=== PATIENT | female | born 1955 | race Caucasian/White ===

== ENCOUNTER 2016-07-21 07:54 | Emergency (ER) | payer MEDICARE ==
[~2016-07-21] VITALS: Ht 154.9 cm; Wt 69.7 kg
[~2016-07-21 07:54] MED LIST: AMLO10TA2 PO; ASP81CT; ASPI-983 PO; ATOR20TA49 PO; ATOR20TA66 PO; ATOR40TA70 PO; CALC-870 PO; CEFD300C3 PO; CEFU500T PO; CEPH500T PO; CHOL10007 PO; CLOP75TA28 PO; CLPD75T; CLPD75T PO; FENO145T; FURO-124 PO; FURO40TA4 PO; HYDR-3816 PO; HYDR-757 PO; IBUP-30 PO; INSASP10V; INSU100C4; INSU100I29 SQ; INSU100V16 SQ; INSU100V6 SQ; INSU100V8; ISOS30TA3 PO; LEVO750T9 PO; LISI40TA PO; MAG355OR17 PO; MELO7.5T; METF1000 PO; METO-274 PO; MTP100TCR; NF-ESOM40C; NF-ESOM40C PO; NITR12SP3; OXYC-201 PO; PENI500T PO; QNPR20T; QUIN20TA27 PO; RAMI1.252; RMP5C; SENN-109 PO; SULF1TAB35 PO; TRAM50TA2 PO
[2016-07-21 08:33] LABS: BASOPHILS % (AUTO) 0 % (0-10); EOSINOPHILS # (AUTO) 0.1 10^3/uL (0.0-0.3); EOSINOPHILS % (AUTO) 2 % (0-10); LYMPHOCYTES % (AUTO) 29 % (12-44); MEAN CORPUSCULAR HEMOGLOBIN 30 PG (25-34); MEAN CORPUSCULAR HGB CONC 35 G/DL (32-36); MEAN CORPUSCULAR VOLUME 85 FL (80-99); MEAN PLATELET VOLUME 11.8 FL (7.4-10.4); MONOCYTES # (AUTO) 0.3 X 10^3 (0.0-1.0); MONOCYTES % (AUTO) 4 % (0-12); NEUTROPHILS # (AUTO) 4.4 X 10^3 (1.8-7.8); NEUTROPHILS % (AUTO) 65 % (42-75); PLATELET COUNT 152 10^3/uL (130-400); RED BLOOD COUNT 4.83 10^6/uL (4.35-5.85); RED CELL DISTRIBUTION WIDTH 12.7 % (10.0-14.5); WHITE BLOOD COUNT 6.8 10^3/uL (4.3-11.0)
[2016-07-21 08:51] LABS: ALANINE AMINOTRANSFERASE 15 U/L (0-55); ALBUMIN 3.9 G/DL (3.2-4.5); AMYLASE 34 U/L (25-125); ANION GAP 11 MMOL/L (5-14); ASPARTATE AMINO TRANSFERASE 12 U/L (5-34); BILIRUBIN,TOTAL 0.4 MG/DL (0.1-1.0); BLOOD UREA NITROGEN 13 MG/DL (7-18); BUN/CREATININE RATIO 16; CALCIUM 9.2 MG/DL (8.5-10.1); CARBON DIOXIDE 22 MMOL/L (21-32); CHLORIDE 104 MMOL/L (98-107); CREATININE SERUM 0.82 MG/DL (0.60-1.30); GFR ESTIMATED > 60; GLUCOSE 385 MG/DL (70-105); LIPASE 30 U/L (8-78); POTASSIUM 3.9 MMOL/L (3.6-5.0); SODIUM 137 MMOL/L (135-145)
--- NOTE | 2016-07-21 09:22 | Diagnostic Imaging Report ---
INDICATION: Stepped on a toy at 4 a.m. this morning, complaining of left knee pain. FINDINGS: 3 views of the left knee demonstrates no fracture, dislocation or joint effusion. Osteophytes are seen in all 3 compartments greatest in the lateral compartment. IMPRESSION: There are no acute findings. Dictated by: Dictated on workstation # [id number]
--- NOTE | 2016-07-21 09:24 | Diagnostic Imaging Report ---
INDICATION: Stepped on a toy at 4 AM, fell, complaining of left rib pain. FINDINGS: Frontal view of the chest demonstrate the lungs to be clear. The heart, mediastinum and pulmonary vascularity are normal. No pleural effusion or pneumothorax is present. 3 additional views of the left ribs demonstrates normal ossification. No fractures are present. IMPRESSION: Negative left ribs. Coronary artery stents or vascular calcifications are present. Dictated by: Dictated on workstation # [id number]
[2016-07-21] MEDS ORDERED: HYDROcodone/APAP 5 MG/325 MG (LORTAB) TAB PO STA (09:39)
[2016-07-21] MEDS ORDERED: ACETAMINOPHEN 500 MG TAB (TYLENOL) PO STA (09:39)
--- NOTE | 2016-07-21 09:48 | ED Fall/Injury ---
General Chief Complaint: Trauma-Non Activation Stated Complaint: FALL; L SIDE RIB PAIN Nursing Triage Note: PT STATES SHE STEPPED ON A TOY ABOUT 0400 THIS A.M. AND FELL, CC OF LT RIB PAIN AND LT KNEE PAIN, NO LOC. Source: patient Exam Limitations: no limitations History of Present Illness Time seen by provider: 09:30 Initial Comments Here with report of fall this morning about 4 a.m. States that she stepped on a toy and that caused her to fall. She hit her left low posterior ribs on the side of the bed as well as skinning her left knee. She is able walk in. Denies breathing problems. Does complain of pain to the site. She is worried that she broke her ribs. Denies other injury. She is on Plavix and adamantly states she did not hit her head. Tetanus is up-to-date as of last month. Occurred: this morning Severity: moderate Injuries/Pain Location: chest, lower extremity Context: tripped Loss of Consciousness: no loss of consciousness Associated Symptoms (Fall): No Abdominal Pain, No Confusion, No Nausea/Vomiting , No Neck Pain, No Shortness of Air, No Trouble Walking Allergies and Home Medications Allergies Coded Allergies: Fish Containing Products (Unverified Allergy, Unknown, 05/17/15) FROM UNCODED ALLERGIES ketoprofen (Verified Allergy, Unknown, 03/01/08) mushroom (Unverified Allergy, Unknown, 05/17/15) FROM UNCODED ALLERGIES Home Medications Amlodipine Besylate 10 Mg Tablet 10 MG PO DAILY (Reported) LAST FILLED #30 08-16-16 Aspirin 81 Mg Tablet.dr 81 MG PO DAILY (Reported) Atorvastatin Calcium 40 Mg Tablet 40 MG PO DAILY (Reported) LAST FILLED #90 16 Calcium Carbonate 300 Mg Tab.chew 300 MG PO QID PRN PRN INDIGESTION (Reported) Cholecalciferol (Vitamin D3) 1,000 Unit Capsule 1,000 UNIT PO DAILY (Reported) Clopidogrel Bisulfate 75 Mg Tablet 75 MG PO DAILY (Reported) LAST FILLED #30 --16 Esomeprazole Magnesium 40 Mg Cap 40 MG PO DAILY (Reported) LAST FILLED #30 2-4-16 Furosemide 40 Mg Tablet 40 MG PO DAILY (Reported) LAST FILLED #30 --16 Insulin Aspart 100 Unit/1 Ml Susp 20 UNITS SQ AC (Reported) LAST FILLED 2-4-16 Insulin Detemir 100 Unit/1 Ml Insuln.pen 60 UNITS SQ BID (Reported) LAST FILLED 16 Lisinopril 40 Mg Tablet 40 MG PO DAILY (Reported) LAST FILLED #30 08-16-16 Mag Hydrox/Al Hydrox/Simeth 355 Ml Oral.susp 10 ML PO QID PRN PRN INDIGESTION ( Reported) Sennosides/Docusate Sodium 1 Each Tablet 1 TAB PO DAILY PRN PRN CONSTIPATION ( Reported) Constitutional: see HPINo chills, No fever Eyes: No Symptoms Reported Ears, Nose, Mouth, Throat: no symptoms reported Respiratory: no symptoms reported Cardiovascular: see HPI chest pain (left lateral and posterior lower chest wall)No edema, Hx of Intervention Gastrointestinal: no symptoms reportedNo abdominal pain, No nausea, No vomiting Genitourinary: no symptoms reported Musculoskeletal: see HPI joint swelling muscle pain Skin: see HPI change in colorNo lesions Psychiatric/Neurological: No Symptoms Reported Past Liolwpc-Vqozex-Egezbl Hx Patient Social History Alcohol Use: Denies Use Recreational Drug Use: No Smoking Status: Former Smoker Former Smoker/When Quit: May 29, 2015 Recent Foreign Travel: No Contact w/Someone Who Travel: No Recent Infectious Disease Expo: No Recent Hopitalizations: No Physical Abuse Screen: No Sexual Abuse: No Immunizations Up To Date Tetanus Booster (TDap): Less than 5yrs Date of Pneumonia Vaccine: May 11, 2015 Date of Influenza Vaccine: Apr 12, 2016 Seasonal Allergies Seasonal Allergies: No Surgeries HX Surgeries: Yes Surgeries: Gallbladder, Hysterectomy, Orthopedic, Tonsillectomy Respiratory Hx Respiratory Disorders: Yes Respiratory Disorders: Chronic Bronchitis Cardiovascular Hx Cardiac Disorders: Yes (STENTS) Cardiac Disorders: Coronary Artery Disease, Hypertension Neurological Hx Neurological Disorders: Yes Neurological Disorders: Neuropathy 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 System Hx 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 Disorders: No Sexually Transmitted Disease: No HIV/AIDS: No Female 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 Disorders: Denies 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 Genitourinary Hx Genitourinary Disorders: No Gastrointestinal Hx Gastrointestinal Disorders: No Musculoskeletal Hx Musculoskeletal Disorders: Yes Musculoskeletal Disorders: Arthritis Endocrine Hx Endocrine Disorders: Yes Endocrine Disorders: Diabetes, Insulin dep HEENT HX ENT Disorders: No Cancer Hx Cancer: Yes Cancer: Cervical Psychosocial Hx Psychiatric Problems: Yes Behavioral Health Disorders: Anxiety Integumentary HX Skin/Integumentary Disorder: No Blood Transfusions Hx Blood Disorders: No Reviewed Nursing Assessment Reviewed/Agree w Nursing PMH: Yes Family Medical History Significant Family History: Heart Disease, Hypertension Family Medial History: Alcoholism Arthritis Asthma Cardiovascular disease Cataracts Colon cancer Completed stroke Coronary thrombosis Diabetes mellitus Gastroenteritis Glaucoma Headache disorder Hypertension Kidney disease Psychosocial problem Respiratory disorder Seizure disorder Severe allergy Thyroid disease Visual disorder Physical Exam Vital Signs Vital Sign - Last 12Hours 07/21/16 08:00 Temp 98.3 Pulse 85 Resp 20 B/P 147/82 Pulse Ox 98 O2 Delivery Room Air Capillary Refill : Less Than 3 Seconds General Appearance: WD/WN no apparent distress HEENT: PERRL/EOMI pharynx normal Neck: full range of motion supple Cardiovascular: regular rate, rhythm no murmur Respiratory: lungs clear normal breath sounds other (tenderness without bruising or abrasion to the left lateral lower chest wall. No obvious deformity , crepitus or any other finding.) Gastrointestinal: non tender soft Back: normal inspection no CVA tenderness no vertebral tenderness Extremities: normal range of motion other (left knee with 2 x 2 centimeter anterior abrasion just below the kneecap. Bleeding controlled. Abrasion superficial.) Neurologic/Psychiatric: alert normal mood/affect oriented x 3 Skin: warm/dryNo ecchymosis, other (abrasion as listed above.) Hardeep Coma Score Best Eye Response: (4) Open Spontaneously Best Verbal Response: (5) Oriented Best Motor Response: (6) Obeys Commands Progress/Results/Core Measures Results/Orders Lab Results Laboratory Tests Test 07/21/16 08:23 Range/Units Alanine Aminotransferase (ALT/SGPT) 15 0-55 U/L Albumin 3.9 3.2-4.5 G/DL Alkaline Phosphatase 81 40-136 U/L Amylase Level 34 25-125 U/L Anion Gap 11 5-14 MMOL/L Aspartate Amino Transf (AST/SGOT) 12 5-34 U/L BUN/Creatinine Ratio 16 Basophils # (Auto) 0.0 0.0-0.1 10^3/uL Basophils (%) (Auto) 0 0-10 % Blood Urea Nitrogen 13 7-18 MG/DL Calcium Level 9.2 8.5-10.1 MG/DL Carbon Dioxide Level 22 21-32 MMOL/L Chloride Level 104 98-107 MMOL/L Creatinine 0.82 0.60-1.30 MG/DL Eosinophils # (Auto) 0.1 0.0-0.3 10^3/uL Eosinophils (%) (Auto) 2 0-10 % Estimat Glomerular Filtration Rate > 60 Glucose Level 385 H 70-105 MG/DL Hematocrit 41 35-52 % Hemoglobin 14.4 11.5-16.0 G/DL Lipase 30 8-78 U/L Lymphocytes # (Auto) 2.0 1.0-4.0 X 10^3 Lymphocytes (%) (Auto) 29 12-44 % Mean Corpuscular Hemoglobin 30 25-34 PG Mean Corpuscular Hemoglobin Concent 35 32-36 G/DL Mean Corpuscular Volume 85 80-99 FL Mean Platelet Volume 11.8 H 7.4-10.4 FL Monocytes # (Auto) 0.3 0.0-1.0 X 10^3 Monocytes (%) (Auto) 4 0-12 % Neutrophils # (Auto) 4.4 1.8-7.8 X 10^3 Neutrophils (%) (Auto) 65 42-75 % Platelet Count 152 130-400 10^3/uL Potassium Level 3.9 3.6-5.0 MMOL/L Red Blood Count 4.83 4.35-5.85 10^6/uL Red Cell Distribution Width 12.7 10.0-14.5 % Sodium Level 137 135-145 MMOL/L Total Bilirubin 0.4 0.1-1.0 MG/DL Total Protein 7.0 6.4-8.2 G/DL White Blood Count 6.8 4.3-11.0 10^3/uL My Orders Orders-MEENU OWUSU MD Amylase (07/21/16 08:10) Cbc With Automated Diff (07/21/16 08:10) Comprehensive Metabolic Panel (07/21/16 08:10) Lipase (07/21/16 08:10) Ribs/Unilateral With Chest (07/21/16 08:10) Knee, Left, 3 Views (07/21/16 08:10) Acetaminophen Tablet (Tylenol Tablet) (07/21/16 09:39) Hydrocodone/Apap 5/325 Tablet (Lortab 5 (07/21/16 09:39) Vital Signs/I&O Vital Sign - Last 12Hours 07/21/16 08:00 Temp 98.3 Pulse 85 Resp 20 B/P 147/82 Pulse Ox 98 O2 Delivery Room Air Blood Pressure Mean: 103 Progress Note : Progress Note Seen and evaluated. X-ray and labs ordered. Tetanus is up-to-date. Left knee wound covered with antibiotic and Band-Aid. Patient given hydrocodone 5/325. Tylenol 500 mg tab by mouth also given. Discharged home with her crest. Patient verbalize understanding instructions and agreement with plan. Diagnostic Imaging Diagonstic Imaging: Xray Plain Films/CT/US/NM/MRI: knee Comments VIA [place], [place] NAME: RICCARDO BUITRAGO [facility] REC#: [id number] PT STATUS: REG ER : 1955 PHYSICIAN: MEENU OWUSU MD ADMIT DATE: 07/21/16/ER Draft Date of Exam:07/21/16 KNEE, LEFT, 3 VIEWS INDICATION: Stepped on a toy at 4 a.m. this morning, complaining of left knee pain. FINDINGS: 3 views of the left knee demonstrates no fracture, dislocation or joint effusion. Osteophytes are seen in all 3 compartments greatest in the lateral compartment. IMPRESSION: There are no acute findings. Dictated on workstation # [id number] Dict: 07/21/16918 Trans: 07/21/16921 [facility] [id number] Interpreted by: SMILEY DE MD Electronically signed by: Diagonstic Imaging: Xray Plain Films/CT/US/NM/MRI: chest Comments VIA [facility]. [place], [place] NAME: RICCARDO BUITRAGO [facility] REC#: [id number] PT STATUS: REG ER : 1955 PHYSICIAN: MEENU OWUSU MD ADMIT DATE: 07/21/16/ER Draft Date of Exam:07/21/16 RIBS/UNILATERAL WITH CHEST INDICATION: Stepped on a toy at 4 AM, fell, complaining of left rib pain. FINDINGS: Frontal view of the chest demonstrate the lungs to be clear. The heart, mediastinum and pulmonary vascularity are normal. No pleural effusion or pneumothorax is present. 3 additional views of the left ribs demonstrates normal ossification. No fractures are present. IMPRESSION: Negative left ribs. Coronary artery stents or vascular calcifications are present. Dictated on workstation # [id number] Dict: 07/21/16919 Trans: 07/21/16923 [facility] [id number] Interpreted by: SMILEY DE MD Electronically signed by: Departure Impression Impression: Primary Impression: Rib contusion Qualified Code: S20.212A - Contusion of left front wall of thorax, initial encounter Additional Impression: Abrasion, left knee, initial encounter Disposition: HOME, SELF-CARE Condition: Improved Departure-Patient Inst. Decision time for Depature: 09:50 Referrals: [facility] (PCP/Family) Primary Care Physician Patient Instructions: RIB CONTUSION, Skin Abrasions (DC) Add. Discharge Instructions: All discharge instructions reviewed with patient and/or family. Voiced understanding. Take medications as directed. You may take Tylenol 1000 mg every 8 hours as needed for pain as well. Follow-up with your Dr. rogers and further evaluation. Return for worsening, fever, vomiting, weakness, breathing problems or other concerns as needed. Scripts Tramadol HCl 50 Mg [id number] Mg PO Q6H PRN PAIN #20 TAB Prov:MEENU OWUSU MD 07/21/16 MEENU OWUSU MD Jul 21, 2016 09:48
[2016-07-21] MEDS ORDERED: TRAM50TA2 PO (09:51)
[2016-07-21 09:58] VITALS: BP 118/78
== END 2016-07-21 09:58 | disposition home or self-care (01) ==
LOC: EDUNIT# 07:54 → ER 07:56
DX: S20.212A Contusion of left front wall of thorax, initial encounter (principal); S80.212A Abrasion, left knee, initial encounter; I10 Essential (primary) hypertension; E11.9 Type 2 diabetes mellitus without complications; Z79.4 Long term (current) use of insulin; Z79.84 Long term (current) use of oral hypoglycemic drugs; Z79.899 Other long term (current) drug therapy; Z79.01 Long term (current) use of anticoagulants; W01.0XXA Fall on same level from slipping, tripping and stumbling without subsequent striking against object, initial encounter; Y92.009 Unspecified place in unspecified non-institutional (private) residence as the place of occurrence of the external cause; Y99.8 Other external cause status
CPT/HCPCS: 36415; 71101; 73562; 80053; 82150; 83690; 85025

== ENCOUNTER 2016-08-28 17:26 | Emergency (ER) | payer MEDICARE ==
[~2016-08-28] VITALS: Ht 162.6 cm; Wt 65.8 kg
[2016-08-28] MEDS ORDERED: NS IV 1000 ML 1,000 ML IV ONE (18:20)
[2016-08-28] MEDS ORDERED: ACETAMINOPHEN 500 MG TAB (TYLENOL) PO ONE (18:30)
[2016-08-28] MEDS ORDERED: IBUPROFEN 800 MG (MOTRIN) TAB PO ONE (18:30)
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
[2016-08-28 19:12] LABS: BASOPHILS % (AUTO) 0 % (0-10); EOSINOPHILS # (AUTO) 0.1 10^3/uL (0.0-0.3); EOSINOPHILS % (AUTO) 1 % (0-10); LYMPHOCYTES # (AUTO) 1.4 X 10^3 (1.0-4.0); LYMPHOCYTES % (AUTO) 28 % (12-44); MEAN CORPUSCULAR HEMOGLOBIN 30 PG (25-34); MEAN CORPUSCULAR HGB CONC 34 G/DL (32-36); MEAN CORPUSCULAR VOLUME 86 FL (80-99); MEAN PLATELET VOLUME 11.7 FL (7.4-10.4); MONOCYTES # (AUTO) 0.5 X 10^3 (0.0-1.0); MONOCYTES % (AUTO) 10 % (0-12); NEUTROPHILS # (AUTO) 3.1 X 10^3 (1.8-7.8); NEUTROPHILS % (AUTO) 62 % (42-75); PLATELET COUNT 143 10^3/uL (130-400); RED BLOOD COUNT 4.65 10^6/uL (4.35-5.85); RED CELL DISTRIBUTION WIDTH 12.5 % (10.0-14.5)
--- NOTE | 2016-08-28 19:22 | Diagnostic Imaging Report ---
INDICATION: Nausea and vomiting, fever. COMPARISON: 07/21/16. EXAMINATION: Frontal and lateral views of the chest were obtained. FINDINGS: Minimal cardiac enlargement without pulmonary edema. There are coronary artery calcifications seen involving the LAD. There is no focal infiltrate, effusion or pneumothorax. Osseous structures are stable. IMPRESSION: 1. No acute cardiopulmonary findings. 2. Coronary artery disease. Dictated by: Dictated on workstation # [id number]
[2016-08-28 19:31] LABS: ALANINE AMINOTRANSFERASE 13 U/L (0-55); ALBUMIN 3.7 G/DL (3.2-4.5); ANION GAP 8 MMOL/L (5-14); ASPARTATE AMINO TRANSFERASE 18 U/L (5-34); BILIRUBIN,TOTAL 0.4 MG/DL (0.1-1.0); BLOOD UREA NITROGEN 14 MG/DL (7-18); BUN/CREATININE RATIO 16; CALCIUM 8.8 MG/DL (8.5-10.1); CARBON DIOXIDE 23 MMOL/L (21-32); CHLORIDE 103 MMOL/L (98-107); CREATININE SERUM 0.89 MG/DL (0.60-1.30); GFR ESTIMATED > 60; GLUCOSE 290 MG/DL (70-105); POTASSIUM 3.7 MMOL/L (3.6-5.0); SODIUM 134 MMOL/L (135-145); TOTAL PROTEIN 7.2 G/DL (6.4-8.2)
[2016-08-28 19:38] LABS: BILIRUBIN,URINE NEGATIVE (NEGATIVE); KETONES,URINE NEGATIVE (NEGATIVE); LEUKOCYTE ESTERASE ,URINE NEGATIVE (NEGATIVE); NITRITE,URINE NEGATIVE (NEGATIVE); PH,URINE 5 (5-9); PROTEIN,URINE 3+ (NEGATIVE); UROBILINOGEN,URINE NORMAL (NORMAL)
[2016-08-28 19:49] LABS: WBC,URINE 0-2 /HPF
[2016-08-28] MEDS ORDERED: BENZ-13 PO (19:58)
[2016-08-28] MEDS ORDERED: ONDA4TAB8 PO (19:58)
[2016-08-28] MEDS ORDERED: OSLT75C PO (19:58)
[2016-08-28] MEDS ORDERED: CEFD300C3 PO (19:58)
[2016-08-28] MEDS ORDERED: cefTRIAXone INJECTION 1,000 MG in NS (IVPB) 50 ML IV ONE (20:00)
[2016-08-28] MEDS ORDERED: RX-OSELTAMIVIR 75 MG (TAMIFLU) BOX OF 10 PO ONE (20:06)
[2016-08-28] MEDS ORDERED: RX-OSELTAMIVIR 75 MG (TAMIFLU) BOX OF 10 PO STA (20:07)
[2016-08-28 20:33] VITALS: BP 145/77
[2016-08-28] MEDS ORDERED: OSELTAMIVIR 75 MG (TAMIFLU) BOX OF 10 PO SCH (21:00)
== END 2016-08-28 20:33 | disposition home or self-care (01) ==
LOC: EDUNIT# 17:26 → ER 17:28
DX: J11.1 Influenza due to unidentified influenza virus with other respiratory manifestations (principal); J40 Bronchitis, not specified as acute or chronic; R09.81 Nasal congestion; I10 Essential (primary) hypertension; E11.9 Type 2 diabetes mellitus without complications; Z79.82 Long term (current) use of aspirin; Z79.4 Long term (current) use of insulin; Z79.899 Other long term (current) drug therapy; Z79.02 Long term (current) use of antithrombotics/antiplatelets; Z87.891 Personal history of nicotine dependence; Z77.22 Contact with and (suspected) exposure to environmental tobacco smoke (acute) (chronic); Z95.5 Presence of coronary angioplasty implant and graft
CPT/HCPCS: 36415; 71020; 80053; 81000; 83605; 85025; 87040; 87804; 93041; 96361; 96374

== ENCOUNTER 2016-11-14 10:14 | Outpatient (RCR) | payer MEDICARE ==
[~2016-11-14 10:14] MED LIST changes: +BENZ-13 PO; +ONDA4TAB8 PO; +OSLT75C PO
== END 2016-11-16 | disposition home or self-care (01) ==
LOC: CR 10:14
PROVIDERS: ATTEND Internal Medicine Cardiovascular Disease
DX: Z48.812 Encounter for surgical aftercare following surgery on the circulatory system (principal); Z95.5 Presence of coronary angioplasty implant and graft
CPT/HCPCS: 93798

== ENCOUNTER 2016-12-29 09:56 | Outpatient (RCR) | payer MEDICARE | END 2017-01-05 16:20 | disposition home or self-care (01) | LOC: CR 09:56 | PROVIDERS: ATTEND Internal Medicine Cardiovascular Disease | DX: Z48.812 Encounter for surgical aftercare following surgery on the circulatory system (principal); Z95.5 Presence of coronary angioplasty implant and graft | CPT/HCPCS: 93798 ==

== ENCOUNTER 2017-03-04 19:29 | Day surgery (SDC) | payer MEDICARE ==
[~2017-03-04] VITALS: Ht 154.9 cm; Wt 67.7 kg
--- OUTSIDE RECORDS SUMMARY | 2017-03-04 19:36 | XMS REPORT ---
Author YUSUF Dennis [facility] eClinicalWorks Address Unknown Phone Unavailable Care Team Providers Care Utility Teller Name Role Phone YUSUF SHARP CP Unavailable Allergies No Known Allergies Problems Problem Type Condition Code Onset Dates Condition Status Problem CAD (coronary artery disease) 414.00 Active Problem Dental caries, unspecified K02.9 Active Problem Diabetes mellitus E11.9 Active Problem Nonruptured cerebral aneurysm I67.1 Active Problem Back pain M54.9 Active Problem CAD (coronary artery disease) I25.10 Active Problem Hypertension I10 Active Problem COPD (chronic obstructive pulmonary disease) J44.9 Active Medications No Known Medications Results No Known Results Summary Purpose eClinicalWorks Submission
--- OUTSIDE RECORDS SUMMARY | 2017-03-04 19:36 | XMS REPORT ---
Author Author YUSUF SHARP [facility] Address [address] [place] [address] Care Team Providers Care Tinsmith Apprentice Name Role Phone YUSUF SHARP Unavailable PROBLEMS Type Condition ICD9-CM Code [id number] Code Onset Dates Condition Status SNOMED Code Problem COPD (chronic obstructive pulmonary disease) J44.9 Active 63744834 Problem Dental caries, unspecified K02.9 Active 21799631 Problem Diabetes mellitus E11.9 Active 99837899 Problem CAD (coronary artery disease) 414.00 Active 54073675 Problem Back pain M54.9 Active 075711601 Problem Coronary artery disease, angina presence unspecified, unspecified vessel or lesion type, unspecified whether [place] or transplanted heart I25.10 Active 527996346238500 Problem Essential hypertension I10 Active 34525767 Problem Pelvic pressure in female N94.89 Active 059168337 Problem Nonruptured cerebral aneurysm I67.1 Active 83893719 Problem Right hip pain M25.551 Active 839143297343021 Problem GERD (gastroesophageal reflux disease) K21.9 Active 585550292 ALLERGIES Unknown Allergies SOCIAL HISTORY No smoking Hx information available PLAN OF CARE VITAL SIGNS MEDICATIONS Unknown Medications RESULTS No Results PROCEDURES No Known procedures IMMUNIZATIONS No Known Immunizations
--- OUTSIDE RECORDS SUMMARY | 2017-03-04 19:36 | XMS REPORT ---
Author YUSUF Dennis [facility] eClinicalWorks Address Unknown Phone Unavailable Care Team Providers Care Chucking And Sawing Machine Operator Name Role Phone YUSUF SHARP CP Unavailable Allergies, Adverse Reactions, Alerts Substance Reaction Event Type N.K.D.A. Info Not Available Non Drug Allergy Problems Problem Type Condition Code Onset Dates Condition Status Problem CAD (coronary artery disease) 414.00 Active Problem Back pain M54.9 Active Problem CAD (coronary artery disease) I25.10 Active Problem Pelvic pressure in female N94.89 Active Problem Nonruptured cerebral aneurysm I67.1 Active Problem GERD (gastroesophageal reflux disease) K21.9 Active Problem Hypertension I10 Active Problem COPD (chronic obstructive pulmonary disease) J44.9 Active Problem Dental caries, unspecified K02.9 Active Problem Diabetes mellitus E11.9 Active Assessment Pelvic pressure in female N94.89 Active Assessment GERD (gastroesophageal reflux disease) K21.9 Active Assessment Hypertension I10 Active Assessment Diabetes mellitus E11.9 Active Assessment Back pain M54.9 Active Assessment Nonruptured cerebral aneurysm I67.1 Active Assessment COPD (chronic obstructive pulmonary disease) J44.9 Active Assessment CAD (coronary artery disease) 414.00 Active Medications Medication Code System Code Instructions Start Date End Date Status Dosage Blood Glucose Meter [facility] 0 Blood Glucose Dx 250.00 2 times a day Apr 03, 2015 test blood sugar Proventil HFA [facility] [address]-41 108 (90 Base) MCG/ACT Inhalation every 4 hrs Apr 03, 2015 2 puffs as needed Lantus SoloStar [facility] [address]-04 100 UNIT/ML Subcutaneous 2 times a day Apr 03, 2015 50 units at bedtime and 40 in the am Plavix [facility] [address]-25 75 MG Orally Once a day Apr 03, 2015 1 tablet BD U/F Short Pen Needle [facility] 8290-841697 31G X 8 MM 3 times a day Apr 03, 2015 as directed Nitroglycerin [facility] [address]-41 400 MCG/SPRAY Translingual Once a day 1 spray under the tongue NovoLog [facility] [address]-54 100 UNIT/ML Subcutaneous 3 times a day Aug 16, 2015 10 units Metformin HCl [facility] [address]-92 1000 MG Orally Twice a day Apr 03, 2015 1 tablet with meals Amlodipine Besylate [facility] [address]-02 10 MG Orally Once a day Aug 16, 2015 1 tablet Nexium [facility] [address]-75 40 MG Orally Once a day 1 capsule Lasix [facility] [address]-23 40 MG Orally Once a day Apr 03, 2015 1 tablet Levemir FlexTouch [facility] [address]-19 100 UNIT/ML Subcutaneous 2 times a day Aug 16, 2015 50units Lisinopril [facility] [address]-08 40 MG Orally Once a day Apr 03, 2015 1 tablet Nitroglycerin [facility] [address]-78 0.4 MG Sublingual PRN Apr 25, 2015 as directed Norvasc [facility] [address]-72 10 MG Orally Once a day 1 tablet Procedures Procedure Coding System Code Date [facility] C[facility]-4 NOBLL Aug 16, 2015 [facility] VISIT ESTABLISHED PATIENT CPT-4 G0467 Aug 16, 2015 GLYCATED HEMOGLOBIN TEST CPT-4 38045 Aug 16, 2015 VENIPUNCT, ROUTINE* CPT-4 55012 Aug 16, 2015 Office Visit, Est Pt., Level 4 CPT-4 13741 Aug 16, 2015 Vital Signs Date/Time: Aug 16, 2015 Temperature 96.0 F Weight 151.6 lbs Height 64.0 in BMI 26.02 Index Blood Pressure Diastolic 90 mmHg Blood Pressure Systolic 142 mmHg Cardiac Monitoring Heart Rate 80 bpm Results Name Result Date Reference Range Unit Abnormality Flag CBC ----Lymphs 33 12190491 % ----Neutrophils 59 71634431 % ----Baso (Absolute) 0.0 20150816 0.0-0.2 x10E3/uL ----Hemoglobin 14.4 20150816 11.1-15.9 g/dL ----Eos (Absolute) 0.2 20150816 0.0-0.4 x10E3/uL ----Hematocrit 43.1 20150816 34.0-46.6 % ----Monocytes(Absolute) 0.3 01026181 0.1-0.9 x10E3/uL ----MCV 88 28526618 79-97 fL ----Lymphs (Absolute) 2.3 77430721 0.7-3.1 x10E3/uL ----MCH 29.3 56308608 26.6-33.0 pg ----Neutrophils (Absolute) 4.2 32649271 1.4-7.0 x10E3/uL ----MCHC 33.4 39085361 31.5-35.7 g/dL ----Immature Granulocytes 0 98126607 % ----Basos 0 86090829 % ----RDW 13.0 64877443 12.3-15.4 % ----Immature Grans (Abs) 0.0 95485905 0.0-0.1 x10E3/uL ----WBC 7.1 03439587 3.4-10.8 x10E3/uL ----Platelets 157 42475687 150-379 x10E3/uL ----Eos 3 98078933 % ----RBC 4.92 68865883 3.77-5.28 x10E6/uL ----Monocytes 5 92172121 % CMP ----Globulin, Total 3.0 38602631 1.5-4.5 g/dL ----eGFR If Africn Am 96 40239762 >59 mL/min/1.73 ----eGFR If NonAfricn Am 83 88332383 >59 mL/min/1.73 ----Albumin, Serum 4.3 08633402 3.6-4.8 g/dL ----Sodium, Serum 138 42480056 134-144 mmol/L ----Protein, Total, Serum 7.3 94250664 6.0-8.5 g/dL ----BUN/Creatinine Ratio 26 20150816 11-26 ----Calcium, Serum 9.6 49108252 8.7-10.3 mg/dL ----AST (SGOT) 17 20150816 0-40 IU/L ----Glucose, Serum 341 93752262 65-99 mg/dL H ----Alkaline Phosphatase, S 85 44759775 39-117 IU/L ----Bilirubin, Total 0.4 20150816 0.0-1.2 mg/dL ----Creatinine, Serum 0.78 20150816 0.57-1.00 mg/dL ----A/G Ratio 1.4 20150816 1.1-2.5 ----BUN 20 20150816 8-27 mg/dL ----Carbon Dioxide, Total 25 20150816 18-29 mmol/L ----ALT (SGPT) 11 20150816 0-32 IU/L ----Potassium, Serum 4.4 20150816 3.5-5.2 mmol/L ----Chloride, Serum 98 20150816 97-108 mmol/L A1C (IN HOUSE) ----A1C IN HOUSE 12.8 20150816 4.3 - 5.6 % ----Previous A1c 10.5 09285835 ----Lot [id number] ----Exp date [id number] ROUTINE VENIPUNCTURE Summary Purpose eClinicalWorks Submission
--- OUTSIDE RECORDS SUMMARY | 2017-03-04 19:37 | XMS REPORT ---
Author Author YUSUF SHARP [facility] eClinicalWorks Address Unknown Phone Unavailable Care Team Providers Care Blocker And Polisher Name Role Phone YUSUF SHARP CP Unavailable Allergies, Adverse Reactions, Alerts Substance Reaction Event Type N.K.D.A. Info Not Available Non Drug Allergy Problems Problem Type Condition Code Onset Dates Condition Status Problem Back pain M54.9 Active Problem Diabetes mellitus E11.9 Active Problem COPD (chronic obstructive pulmonary disease) J44.9 Active Problem Essential hypertension I10 Active Problem Right hip pain M25.551 Active Problem Coronary artery disease, angina presence unspecified, unspecified vessel or lesion type, unspecified whether [place] or transplanted heart I25.10 Active Problem Nonruptured cerebral aneurysm I67.1 Active Problem Dental caries, unspecified K02.9 Active Problem GERD (gastroesophageal reflux disease) K21.9 Active Problem Pelvic pressure in female N94.89 Active Assessment Sebaceous cyst L72.3 Active Assessment GERD (gastroesophageal reflux disease) K21.9 Active Assessment Back pain M54.9 Active Assessment Essential hypertension I10 Active Assessment Diabetes mellitus E11.9 Active Assessment Coronary artery disease, angina presence unspecified, unspecified vessel or lesion type, unspecified whether [place] or transplanted heart I25.10 Active Problem CAD (coronary artery disease) 414.00 Active Medications Medication Code System Code Instructions Start Date End Date Status Dosage Proventil HFA [facility] [address]-79 108 (90 Base) MCG/ACT Inhalation every 4 hrs Apr 03, 2015 2 puffs as needed Penicillin V Potassium [facility] [address]-68 250 MG Orally Twice a day 1 tablet Plavix [facility] [address]-37 75 MG Orally Once a day Apr 03, 2015 1 tablet Metformin HCl [facility] [address]-33 1000 MG Orally Twice a day Apr 03, 2015 1 tablet with meals Levemir FlexTouch [facility] [address]-68 100 UNIT/ML Subcutaneous 2 times a day Aug 16, 2015 50units Lasix [facility] [address]-39 40 mg Orally Once a day Apr 03, 2015 1 tablet Nexium [facility] [address]-25 40 MG Orally Once a day 1 capsule Lisinopril [facility] [address]-01 40 mg Orally Once a day Apr 03, 2015 1 tablet Lantus SoloStar [facility] [address]-88 100 UNIT/ML Subcutaneous 2 times a day Apr 03, 2015 60 units at bedtime and 60 in the am Blood Glucose Meter [facility] 0 Blood Glucose Dx 250.00 2 times a day Apr 03, 2015 test blood sugar Amlodipine Besylate [facility] [address]-71 10 MG Orally Once a day Aug 16, 2015 1 tablet Tums [facility] [address]-67 500 MG Orally Four times a day 1 tablet BD U/F Short Pen Needle [facility] 8290-221583 31G X 8 MM 3 times a day Apr 03, 2015 as directed Nitroglycerin [facility] [address]-19 400 MCG/SPRAY Translingual Once a day 1 spray under the tongue NovoLog [facility] [address]-23 100 UNIT/ML Subcutaneous 3 times a day Aug 16, 2015 20 units Procedures Procedure Coding System Code Date Office Visit, Est Pt., Level 3 CPT-4 19237 May 08, 2016 [facility] VISIT ESTABLISHED PATIENT CPT-4 G0467 May 08, 2016 Vital Signs Date/Time: May 08, 2016 Cardiac Monitoring Heart Rate 84 bpm Weight 152.6 lbs Height 64.0 in BMI 26.19 Index Blood Pressure Diastolic 84 mmHg Blood Pressure Systolic 134 mmHg Results No Known Results Summary Purpose eClinicalWorks Submission
--- OUTSIDE RECORDS SUMMARY | 2017-03-04 19:37 | XMS REPORT ---
Author Author ASHLEY BANEGAS [facility] Address [address] [place] [address] Care Team Providers Care Animal Care Supervisor Name Role Phone ASHLEY BANEGAS Unavailable PROBLEMS Type Condition ICD9-CM Code EGT16-LI Code Onset Dates Condition Status SNOMED Code Problem COPD (chronic obstructive pulmonary disease) J44.9 Active 38548955 Problem Dental caries, unspecified K02.9 Active 71718165 Problem Diabetes mellitus E11.9 Active 73229606 Problem CAD (coronary artery disease) 414.00 Active 68128742 Problem Back pain M54.9 Active 444550921 Problem Coronary artery disease, angina presence unspecified, unspecified vessel or lesion type, unspecified whether [place] or transplanted heart I25.10 Active 339847526689162 Problem Essential hypertension I10 Active 32423726 Problem Pelvic pressure in female N94.89 Active 030700288 Problem Nonruptured cerebral aneurysm I67.1 Active 69603013 Problem Right hip pain M25.551 Active 486267078446295 Problem GERD (gastroesophageal reflux disease) K21.9 Active 099250518 ALLERGIES Unknown Allergies SOCIAL HISTORY No smoking Hx information available PLAN OF CARE VITAL SIGNS MEDICATIONS Medication Instructions Dosage Frequency Start Date End Date Duration Status Lasix 40 mg Orally Once a day 1 tablet 24h Mar, Active Maalox Max 400-400-40 MG/5ML Orally Four times a day 10 ml as needed 6h Active Atorvastatin Calcium 40 MG Orally Once a day 1 tablet 24h Active Plavix 75 MG Orally Once a day 1 tablet 24h Mar, Active Aspirin 81 MG Orally Once a day 1 tablet 24h Active Amlodipine Besylate 10 MG Orally Once a day 1 tablet 24h Aug, 30 day(s) Active Senna S 8.6-50 MG Orally Once a day 1 tablet in the evening as needed 24h Active BD U/F Short Pen Needle 31G X 8 MM as directed 8h Mar, Active Tums 500 MG Orally Four times a day 1 tablet 6h Active Levemir FlexTouch 100 UNIT/ML Subcutaneous 2 times a day 60units 12h Aug Active Nexium 40 MG Orally Once a day 1 capsule 24h Active Vitamin D3 1000 UNIT Orally Once a day 1 capsule 24h Active Blood Glucose Meter Blood Glucose Dx 250.00 2 times a day test blood sugar 12h Mar, Active Lisinopril 40 mg Orally Once a day 1 tablet 24h Mar, 90 days Active NovoLog 100 UNIT/ML Subcutaneous 3 times a day 20 units 8h Aug, Active RESULTS No Results PROCEDURES No Known procedures IMMUNIZATIONS No Known Immunizations
--- OUTSIDE RECORDS SUMMARY | 2017-03-04 19:39 | XMS REPORT ---
Author YUSUF Dennis [facility] eClinicalWorks Address Unknown Phone Unavailable Care Team Providers Care Wood Veneer Taper Name Role Phone YUSUF SHARP CP Unavailable Allergies, Adverse Reactions, Alerts Substance Reaction Event Type N.K.D.A. Info Not Available Non Drug Allergy Problems Problem Type Condition Code Onset Dates Condition Status Assessment Diabetes mellitus E11.9 Active Problem CAD (coronary artery disease) 414.00 Active Assessment CAD (coronary artery disease) 414.00 Active Problem Dental caries, unspecified K02.9 Active Problem Diabetes mellitus E11.9 Active Problem Nonruptured cerebral aneurysm I67.1 Active Problem Back pain M54.9 Active Problem CAD (coronary artery disease) I25.10 Active Problem Hypertension I10 Active Problem COPD (chronic obstructive pulmonary disease) J44.9 Active Assessment CAD (coronary artery disease) I25.10 Active Assessment Back pain M54.9 Active Assessment Dental caries, unspecified K02.9 Active Assessment COPD (chronic obstructive pulmonary disease) J44.9 Active Assessment Nonruptured cerebral aneurysm I67.1 Active Assessment Hypertension I10 Active Medications Medication Code System Code Instructions Start Date End Date Status Dosage Lasix [facility] [address]-89 40 MG Orally Once a day Apr 03, 2015 1 tablet BD U/F Short Pen Needle [facility] 8290-727240 31G X 8 MM 3 times a day Apr 03, 2015 as directed Nexium [facility] [address]-37 40 MG Orally Once a day 1 capsule Nitroglycerin [facility] [address]-33 400 MCG/SPRAY Translingual Once a day 1 spray under the tongue Plavix [facility] [address]-44 75 MG Orally Once a day Apr 03, 2015 1 tablet Lantus SoloStar [facility] [address]-69 100 UNIT/ML Subcutaneous 2 times a day Apr 03, 2015 50 units at bedtime and 40 in the am Metformin HCl [facility] [address]-93 1000 MG Orally Twice a day Apr 03, 2015 1 tablet with meals Proventil HFA [facility] [address]-84 108 (90 Base) MCG/ACT Inhalation every 4 hrs Apr 03, 2015 2 puffs as needed Lisinopril [facility] [address]-04 40 MG Orally Once a day Apr 03, 2015 1 tablet Blood Glucose Meter [facility] 0 Blood Glucose Dx 250.00 2 times a day Apr 03, 2015 test blood sugar Test strips [facility] 0 Blood Glucose 2 times a day Apr 03, 2015 Aug 01, 2015 as directed Potassium Chloride Andreea ER [facility] [address]-87 20 MEQ Orally Twice a day Apr 03, 2015 Jul 02, 2015 1 tablet Nitroglycerin [facility] [address]-04 0.4 MG Sublingual PRN Apr 25, 2015 as directed Procedures Procedure Coding System Code Date Office Visit, Est Pt., Level 4 CPT-4 43834 May 03, 2015 [facility] VISIT ESTABLISHED PATIENT CPT-4 G0467 May 03, 2015 Vital Signs Date/Time: May 03, 2015 Temperature 96.7 F Weight 150.2 lbs Height 64.0 in BMI 25.78 Index Blood Pressure Diastolic 80 mmHg Blood Pressure Systolic 160 mmHg Cardiac Monitoring Heart Rate 78 bpm Results No Known Results Summary Purpose eClinicalWorks Submission
--- OUTSIDE RECORDS SUMMARY | 2017-03-04 19:39 | XMS REPORT ---
Author Author YAHAIRA MCNULTY [facility] eClinicalWorks Address Unknown Phone Unavailable Care Team Providers Care Power Generation Technician Name Role Phone YAHAIRA MCNULTY CP Unavailable Allergies, Adverse Reactions, Alerts Substance Reaction Event Type N.K.D.A. Info Not Available Non Drug Allergy Problems Problem Type Condition Code Onset Dates Condition Status Problem Back pain M54.9 Active Problem Diabetes mellitus E11.9 Active Problem COPD (chronic obstructive pulmonary disease) J44.9 Active Assessment Visit for suture removal Z48.02 Active Problem CAD (coronary artery disease) 414.00 Active Problem Essential hypertension I10 Active Problem Right hip pain M25.551 Active Problem Coronary artery disease, angina presence unspecified, unspecified vessel or lesion type, unspecified whether [place] or transplanted heart I25.10 Active Problem Nonruptured cerebral aneurysm I67.1 Active Problem Dental caries, unspecified K02.9 Active Problem GERD (gastroesophageal reflux disease) K21.9 Active Problem Pelvic pressure in female N94.89 Active Medications Medication Code System Code Instructions Start Date End Date Status Dosage Lantus SoloStar [facility] [address]-24 100 UNIT/ML Subcutaneous 2 times a day Apr 03, 2015 60 units at bedtime and 60 in the am Blood Glucose Meter [facility] 0 Blood Glucose Dx 250.00 2 times a day Apr 03, 2015 test blood sugar Plavix [facility] [address]-32 75 MG Orally Once a day Apr 03, 2015 1 tablet Nitroglycerin [facility] [address]-02 400 MCG/SPRAY Translingual Once a day 1 spray under the tongue Amlodipine Besylate [facility] [address]-41 10 MG Orally Once a day Aug 16, 2015 1 tablet BD U/F Short Pen Needle [facility] 8290-785069 31G X 8 MM 3 times a day Apr 03, 2015 as directed Lisinopril [facility] [address]-43 40 mg Orally Once a day Apr 03, 2015 1 tablet Nexium [facility] [address]-46 40 MG Orally Once a day 1 capsule Lasix [facility] [address]-86 40 mg Orally Once a day Apr 03, 2015 1 tablet Tums [facility] [address]-88 500 MG Orally Four times a day 1 tablet Levemir FlexTouch [facility] [address]-66 100 UNIT/ML Subcutaneous 2 times a day Aug 16, 2015 50units Metformin HCl [facility] [address]-59 1000 MG Orally Twice a day Apr 03, 2015 1 tablet with meals Penicillin V Potassium [facility] [address]-23 250 MG Orally Twice a day 1 tablet Proventil HFA [facility] [address]-36 108 (90 Base) MCG/ACT Inhalation every 4 hrs Apr 03, 2015 2 puffs as needed NovoLog [facility] [address]-34 100 UNIT/ML Subcutaneous 3 times a day Aug 16, 2015 20 units Procedures Procedure Coding System Code Date Office Visit, Est Pt., Level 1 CPT-4 93464 May 15, 2016 Vital Signs Date/Time: May 15, 2016 Cardiac Monitoring Heart Rate 96 bpm Weight 153.5 lbs Height 64.0 in BMI 26.35 Index Blood Pressure Diastolic 71 mmHg Blood Pressure Systolic 141 mmHg Results No Known Results Summary Purpose eClinicalWorks Submission
--- OUTSIDE RECORDS SUMMARY | 2017-03-04 19:40 | XMS REPORT ---
Author GEN Mckoy eClinicalWorks Address Unknown Phone Unavailable Care Team Providers Care Review Assistant Name Role Phone GEN MORA CP Unavailable Allergies, Adverse Reactions, Alerts Substance Reaction Event Type N.K.D.A. Info Not Available Non Drug Allergy Problems Problem Type Condition Code Onset Dates Condition Status Problem Back pain M54.9 Active Problem Diabetes mellitus E11.9 Active Problem COPD (chronic obstructive pulmonary disease) J44.9 Active Assessment Dental examination Z01.20 Active Problem CAD (coronary artery disease) 414.00 Active Problem Essential hypertension I10 Active Problem Right hip pain M25.551 Active Problem Coronary artery disease, angina presence unspecified, unspecified vessel or lesion type, unspecified whether [place] or transplanted heart I25.10 Active Problem Nonruptured cerebral aneurysm I67.1 Active Problem Dental caries, unspecified K02.9 Active Problem GERD (gastroesophageal reflux disease) K21.9 Active Problem Pelvic pressure in female N94.89 Active Medications Medication Code System Code Instructions Start Date End Date Status Dosage Lasix [facility] [address]-40 40 MG Orally Once a day Apr 03, 2015 1 tablet Nexium [facility] [address]-61 40 MG Orally Once a day 1 capsule NovoLog [facility] [address]-64 100 UNIT/ML Subcutaneous 3 times a day Aug 16, 2015 20 units BD U/F Short Pen Needle [facility] 8290-845628 31G X 8 MM 3 times a day Apr 03, 2015 as directed Nitroglycerin [facility] [address]-50 400 MCG/SPRAY Translingual Once a day 1 spray under the tongue Norvasc [facility] [address]-64 10 mg Orally Once a day 1 tablet Cefuroxime Axetil [facility] [address]-81 500 MG Orally Twice a day 1 tablet Proventil HFA [facility] [address]-66 108 (90 Base) MCG/ACT Inhalation every 4 hrs Apr 03, 2015 2 puffs as needed Lantus SoloStar [facility] [address]-26 100 UNIT/ML Subcutaneous 2 times a day Apr 03, 2015 60 units at bedtime and 60 in the am Blood Glucose Meter [facility] 0 Blood Glucose Dx 250.00 2 times a day Apr 03, 2015 test blood sugar Tums [facility] [address]-91 500 MG Orally Four times a day 1 tablet Amlodipine Besylate [facility] [address]-33 10 MG Orally Once a day Aug 16, 2015 1 tablet Levemir FlexTouch [facility] [address]-66 100 UNIT/ML Subcutaneous 2 times a day Aug 16, 2015 50units Levofloxacin [facility] [address]-91 750 MG Orally Once a day 1 tablet Lisinopril [facility] [address]-44 40 MG Orally Once a day Apr 03, 2015 1 tablet Plavix [facility] [address]-33 75 MG Orally Once a day Apr 03, 2015 1 tablet Metformin HCl [facility] [address]-37 1000 MG Orally Twice a day Apr 03, 2015 1 tablet with meals Procedures Procedure Coding System Code Date PANORAMIC FILM SEE ALSO CODE 20949 CPT-4 D0330 Apr 29, 2016 LTD ORAL EVALUATION - PROBLEM FOCUS CPT-4 D0140 Apr 29, 2016 Results No Known Results Summary Purpose eClinicalWorks Submission
--- OUTSIDE RECORDS SUMMARY | 2017-03-04 19:40 | XMS REPORT ---
Author Author PATRICIO REAVES [facility] Address [address] [place] [address] Care Team Providers Care Photoengraving Proofer Name Role Phone PATRICIO REAVES Unavailable PROBLEMS Type Condition ICD9-CM Code [id number] Code Onset Dates Condition Status SNOMED Code Problem COPD (chronic obstructive pulmonary disease) J44.9 Active 63694336 Problem Dental caries, unspecified K02.9 Active 53932892 Problem Diabetes mellitus E11.9 Active 52499117 Problem CAD (coronary artery disease) 414.00 Active 04660817 Problem Back pain M54.9 Active 736619565 Problem Coronary artery disease, angina presence unspecified, unspecified vessel or lesion type, unspecified whether [place] or transplanted heart I25.10 Active 567212015664370 Problem Essential hypertension I10 Active 01308546 Problem Pelvic pressure in female N94.89 Active 444898818 Problem Nonruptured cerebral aneurysm I67.1 Active 44796026 Problem Right hip pain M25.551 Active 707531126067746 Problem GERD (gastroesophageal reflux disease) K21.9 Active 506508287 ALLERGIES Unknown Allergies SOCIAL HISTORY No smoking Hx information available PLAN OF CARE VITAL SIGNS MEDICATIONS Medication Instructions Dosage Frequency Start Date End Date Duration Status Blood Glucose Meter Blood Glucose Dx 250.00 2 times a day test blood sugar 12h Mar, Active BD U/F Short Pen Needle 31G X 8 MM as directed 8h Mar, Active RESULTS No Results PROCEDURES No Known procedures IMMUNIZATIONS No Known Immunizations
--- OUTSIDE RECORDS SUMMARY | 2017-03-04 19:41 | XMS REPORT ---
Author YUSUF Dennis [facility] eClinicalWorks Address Unknown Phone Unavailable Care Team Providers Care P D Driver Name Role Phone YUSUF SHARP CP Unavailable Allergies, Adverse Reactions, Alerts Substance Reaction Event Type N.K.D.A. Info Not Available Non Drug Allergy Problems Problem Type Condition Code Onset Dates Condition Status Problem CAD (coronary artery disease) 414.00 Active Problem COPD (chronic obstructive pulmonary disease) 496 Active Problem Back pain 724.5 Active Problem Hypertension I10 Active Problem COPD (chronic obstructive pulmonary disease) J44.9 Active Problem Diabetes mellitus E11.9 Active Problem Diabetes 250.00 Active Problem Hypertension 401.9 Active Problem Back pain M54.9 Active Problem CAD (coronary artery disease) I25.10 Active Assessment COPD (chronic obstructive pulmonary disease) J44.9 Active Assessment Hypertension I10 Active Assessment CAD (coronary artery disease) I25.10 Active Assessment Encounter for immunization Z23 Active Assessment Back pain M54.9 Active Assessment Diabetes mellitus E11.9 Active Medications Medication Code System Code Instructions Start Date End Date Status Dosage Plavix [facility] [address]-55 75 MG Orally Once a day Apr 03, 2015 1 tablet Test strips ND 0 Blood Glucose 2 times a day Apr 03, 2015 Aug 01, 2015 as directed Proventil HFA [facility] [address]-36 108 (90 Base) MCG/ACT Inhalation every 4 hrs Apr 03, 2015 2 puffs as needed Metformin HCl [facility] [address]-76 1000 MG Orally Twice a day Apr 03, 2015 1 tablet with meals Nitroglycerin [facility] [address]-78 400 MCG/SPRAY Translingual Once a day 1 spray under the tongue Nitroglycerin [facility] [address]-95 0.4 MG Sublingual PRN Apr 25, 2015 as directed Blood Glucose Meter NDC 0 Blood Glucose Dx 250.00 2 times a day Apr 03, 2015 test blood sugar Lantus SoloStar [facility] [address]-34 100 UNIT/ML Subcutaneous 2 times a day Apr 03, 2015 40 units at bedtime and 40 in the am BD U/F Short Pen Needle [facility] 8290-115889 31G X 8 MM 3 times a day Apr 03, 2015 as directed Lasix [facility] [address]-27 40 MG Orally Once a day Apr 03, 2015 1 tablet Nexium [facility] [address]-10 40 MG Orally Once a day 1 capsule Lisinopril [facility] [address]-62 40 MG Orally Once a day Apr 03, 2015 1 tablet Potassium Chloride Andreea ER [facility] [address]-75 20 MEQ Orally Twice a day Apr 03, 2015 Jul 02, 2015 1 tablet Procedures Procedure Coding System Code Date Office Visit, Est Pt., Level 4 CPT-4 84848 Apr 25, 2015 FLUARIX QUAD (3 & UP)-GSK-2014 CPT-4 72296 Apr 25, 2015 [facility] VISIT ESTABLISHED PATIENT CPT-4 G0467 Apr 25, 2015 SINGLE IMMUNIZATION ADMIN CPT-4 60401 Apr 25, 2015 Vital Signs Date/Time: Apr 25, 2015 Temperature 96.5 F Weight 150.2 lbs Height 64.0 in BMI 25.78 Index Blood Pressure Diastolic 82 mmHg Blood Pressure Systolic 124 mmHg Cardiac Monitoring Heart Rate 82 bpm Results No Known Results Immunizations Vaccine Administration Date FLUARIX QUAD (3 & UP)-GSK-2014Apr 25, 2015 Summary Purpose eClinicalWorks Submission
--- OUTSIDE RECORDS SUMMARY | 2017-03-04 19:41 | XMS REPORT ---
Author Author YAHAIRA MCNULTY [facility] Address [address] [place] [address] Care Team Providers Care Labor Relations Director Name Role Phone YAHAIRA MCNULTY Unavailable PROBLEMS Type Condition ICD9-CM Code [id number] Code Onset Dates Condition Status SNOMED Code Problem Diabetes mellitus E11.9 Active 33964344 Problem COPD (chronic obstructive pulmonary disease) J44.9 Active 72908520 Problem Dental examination Z01.20 Active 399662388 Problem Hypercholesterolemia E78.00 Active 79880390 Problem GERD (gastroesophageal reflux disease) K21.9 Active 878398243 Problem Nonruptured cerebral aneurysm I67.1 Active 59492916 Problem Coronary artery disease, angina presence unspecified, unspecified vessel or lesion type, unspecified whether [place] or transplanted heart I25.10 Active 840479961535648 Problem Essential hypertension I10 Active 90415339 ALLERGIES Unknown Allergies SOCIAL HISTORY No smoking Hx information available PLAN OF CARE VITAL SIGNS MEDICATIONS Unknown Medications RESULTS No Results PROCEDURES No Known procedures IMMUNIZATIONS No Known Immunizations
--- OUTSIDE RECORDS SUMMARY | 2017-03-04 19:41 | XMS REPORT ---
Author YUSUF Dennis [facility] eClinicalWorks Address Unknown Phone Unavailable Care Team Providers Care All Source Intelligence Technician Name Role Phone YUSUF SHARP CP Unavailable Allergies, Adverse Reactions, Alerts Substance Reaction Event Type N.K.D.A. Info Not Available Non Drug Allergy Problems Problem Type Condition Code Onset Dates Condition Status Assessment CAD (coronary artery disease) 414.00 Active Assessment COPD (chronic obstructive pulmonary disease) 496 Active Assessment Back pain 724.5 Active Problem Hypertension 401.9 Active Problem COPD (chronic obstructive pulmonary disease) 496 Active Problem Diabetes 250.00 Active Assessment Diabetes 250.00 Active Assessment Hypertension 401.9 Active Problem Back pain 724.5 Active Problem CAD (coronary artery disease) 414.00 Active Medications Medication Code System Code Instructions Start Date End Date Status Dosage Hydrocodone-Acetaminophen [facility] [address]-94 7.5-325 MG Orally 2 times a day Apr 03, 2015 Apr 17, 2015 1 tablet as needed Potassium Chloride Andreea ER [facility] [address]-44 20 MEQ Orally Twice a day Apr 03, 2015 Jul 02, 2015 1 tablet Blood Glucose Meter ND 0 Blood Glucose Dx 250.00 2 times a day Apr 03, 2015 test blood sugar Test strips [facility] 0 Blood Glucose 2 times a day Apr 03, 2015 Aug 01, 2015 as directed Lasix [facility] [address]-72 40 MG Orally Once a day Apr 03, 2015 1 tablet BD U/F Short Pen Needle [facility] 8290-833735 31G X 8 MM 3 times a day Apr 03, 2015 as directed Metformin HCl [facility] [address]-67 1000 MG Orally Twice a day Apr 03, 2015 1 tablet with meals Lisinopril [facility] [address]-92 40 MG Orally Once a day Apr 03, 2015 1 tablet Proventil HFA [facility] [address]-76 108 (90 Base) MCG/ACT Inhalation every 4 hrs Apr 03, 2015 2 puffs as needed Plavix [facility] [address]-25 75 MG Orally Once a day Apr 03, 2015 1 tablet Lantus SoloStar [facility] [address]-68 100 UNIT/ML Subcutaneous Once a day Apr 03, 2015 20 units at bedtime Procedures Procedure Coding System Code Date MICROALBUMIN, SEMIQUANT CPT-4 17971 Apr 03, 2015 [facility] NOBLL Apr 03, 2015 GLYCATED HEMOGLOBIN TEST CPT-4 07599 Apr 03, 2015 VENIPUNCT, ROUTINE* CPT-4 10499 Apr 03, 2015 No Charge CPT-4 71890 Apr 03, 2015 Office Visit, New Pt., Level 4 CPT-4 65571 Apr 03, 2015 ON LICENSE OF [facility] VISIT NEW PATIENT CPT-4 G0466 Apr 03, 2015 Vital Signs Date/Time: Apr 03, 2015 Temperature 97.6 F Weight 153.0 lbs Height 64.0 in BMI 26.26 Index Blood Pressure Diastolic 80 mmHg Blood Pressure Systolic 140 mmHg Cardiac Monitoring Heart Rate 80 bpm Results Name Result Date Reference Range Unit Abnormality Flag AMERITOX A1C (IN HOUSE) CBC Summary Purpose eClinicalWorks Submission
--- OUTSIDE RECORDS SUMMARY | 2017-03-04 19:42 | XMS REPORT ---
Author Author YAHAIRA MCNULTY [facility] Address [address] [place] [address] Care Team Providers Care Cloth Shrinking Supervisor Name Role Phone YAHAIRA MCNULTY Unavailable PROBLEMS Type Condition ICD9-CM Code [id number] Code Onset Dates Condition Status SNOMED Code Problem Diabetes mellitus E11.9 Active 77058532 Problem COPD (chronic obstructive pulmonary disease) J44.9 Active 83584073 Problem Dental examination Z01.20 Active 725739041 Problem Hypercholesterolemia E78.00 Active 89387850 Problem GERD (gastroesophageal reflux disease) K21.9 Active 389697072 Problem Nonruptured cerebral aneurysm I67.1 Active 43585781 Problem Coronary artery disease, angina presence unspecified, unspecified vessel or lesion type, unspecified whether [place] or transplanted heart I25.10 Active 818694680006243 Problem Essential hypertension I10 Active 31289783 ALLERGIES Substance Reaction Event Type Date Status N.K.D.A. Unknown Non Drug Allergy Jun, Unknown SOCIAL HISTORY No smoking Hx information available PLAN OF CARE Activity Details Follow Up 3 Months Reason: VITAL SIGNS Height 64.0 in 2016-06-27 Weight 154.3 lbs 2016-06-27 Temperature 98.0 degrees Fahrenheit 2016-06-27 Heart Rate 88 bpm 2016-06-27 Respiratory Rate 20 2016-06-27 BMI 26.48 kg/m2 2016-06-27 Blood pressure systolic 120 mmHg 2016-06-27 Blood pressure diastolic 80 mmHg 2016-06-27 MEDICATIONS Medication Instructions Dosage Frequency Start Date End Date Duration Status Lisinopril 40 mg Orally Once a day 1 tablet 24h Mar, 90 days Active Amlodipine Besylate 10 MG Orally Once a day 1 tablet 24h Aug, 30 day(s) Active Aspirin 81 MG Orally Once a day 1 tablet 24h Active Blood Glucose Meter Blood Glucose Dx 250.00 2 times a day test blood sugar 12h Mar, Active Vitamin D3 1000 UNIT Orally Once a day 1 capsule 24h Active Tums 500 MG Orally Four times a day 1 tablet 6h Active Metformin HCl 1000 MG Orally Twice a day 1 tablet with meals 12h Mar, Active Senna S 8.6-50 MG Orally Once a day 1 tablet in the evening as needed 24h Active Lasix 40 mg Orally Once a day 1 tablet 24h Mar, Active NovoLog 100 UNIT/ML Subcutaneous 3 times a day 20 units 8h Aug, Active Plavix 75 MG Orally Once a day 1 tablet 24h Mar, Active Maalox Max 400-400-40 MG/5ML Orally Four times a day 10 ml as needed 6h Active BD U/F Short Pen Needle 31G X 8 MM as directed 8h Mar, Active Levemir FlexTouch 100 UNIT/ML Subcutaneous 2 times a day 60units 12h Aug Active Atorvastatin Calcium 40 mg Orally Once a day 1 tablet 24h Active RESULTS Name Result Date Reference Range A1C (IN HOUSE) 2016-06-27 A1C IN HOUSE 11.1 4.3 - 5.6 % Previous A1c 12.4 Lot [id number] Exp date 03/2018 PROCEDURES Procedure Date Ordered Related Diagnosis Body Site GLYCATED HEMOGLOBIN TEST Jun 27, 2016 PENDING SALE TO [facility] VISIT ESTABLISHED PATIENT Jun 27, 2016 Office Visit, Est Pt., Level 3 Jun 27, 2016 IMMUNIZATIONS No Known Immunizations
[2017-03-04 19:46] LABS: BASOPHILS % (AUTO) 0 % (0-10); EOSINOPHILS # (AUTO) 0.1 10^3/uL (0.0-0.3); EOSINOPHILS % (AUTO) 1 % (0-10); LYMPHOCYTES # (AUTO) 2.8 X 10^3 (1.0-4.0); LYMPHOCYTES % (AUTO) 39 % (12-44); MEAN CORPUSCULAR HEMOGLOBIN 30 PG (25-34); MEAN CORPUSCULAR HGB CONC 34 G/DL (32-36); MEAN CORPUSCULAR VOLUME 87 FL (80-99); MEAN PLATELET VOLUME 11.7 FL (7.4-10.4); MONOCYTES # (AUTO) 0.5 X 10^3 (0.0-1.0); MONOCYTES % (AUTO) 7 % (0-12); NEUTROPHILS # (AUTO) 3.8 X 10^3 (1.8-7.8); NEUTROPHILS % (AUTO) 54 % (42-75); PLATELET COUNT 156 10^3/uL (130-400); RED BLOOD COUNT 4.42 10^6/uL (4.35-5.85); RED CELL DISTRIBUTION WIDTH 12.8 % (10.0-14.5); WHITE BLOOD COUNT 7.1 10^3/uL (4.3-11.0)
[2017-03-04 19:56] LABS: PROTHROMBIN TIME PATIENT 12.9 SEC (12.2-14.7)
[2017-03-04 20:04] LABS: ALANINE AMINOTRANSFERASE 11 U/L (0-55); ALBUMIN 3.4 GM/DL (3.2-4.5); ANION GAP 10 MMOL/L (5-14); ASPARTATE AMINO TRANSFERASE 14 U/L (5-34); BILIRUBIN,TOTAL 0.4 MG/DL (0.1-1.0); BLOOD UREA NITROGEN 16 MG/DL (7-18); BUN/CREATININE RATIO 21; CALCIUM 9.1 MG/DL (8.5-10.1); CARBON DIOXIDE 21 MMOL/L (21-32); CHLORIDE 105 MMOL/L (98-107); CREATININE SERUM 0.77 MG/DL (0.60-1.30); GFR ESTIMATED > 60; GLUCOSE 354 MG/DL (70-105); MAGNESIUM 1.6 MG/DL (1.8-2.4); POTASSIUM 3.9 MMOL/L (3.6-5.0); SODIUM 136 MMOL/L (135-145); TOTAL PROTEIN 6.8 GM/DL (6.4-8.2)
--- NOTE | 2017-03-04 20:06 | Diagnostic Imaging Report ---
INDICATION: Chest pain, started around 6:00 this evening. EXAMINATION: Chest, 03/04/2017. COMPARISON: 08/28/16. FINDINGS: Atelectasis at the left lung base is noted with remaining lungs clear. There are no effusions or infiltrates. There is no pneumothorax. Overall low lung volumes are noted. There is some atherosclerotic disease seen along the coronary arteries. IMPRESSION: Fairly stable appearance of the chest with no acute abnormality. Dictated by: Dictated on workstation # [id number]
[2017-03-04 20:10] LABS: MYOGLOBIN SERUM 33.1 NG/ML (10.0-92.0)
[2017-03-04] MEDS ORDERED: RX-NITROGLYCERIN 0.4 MG TAB BTL 25'S SL PRN (20:15)
--- NOTE | 2017-03-04 21:04 | ED Chest Pain ---
General Chief Complaint: Chest Pain Stated Complaint: CHEST PAIN Nursing Triage Note: pt reports around 1900 she was in her kitchen cooking when she had sudden cp that made her fall to the floor. pt reports she did not loose consciousness. Nursing Sepsis Screen: No Definite Risk Source: patient, EMS, old records Exam Limitations: no limitations History of Present Illness Time seen by provider: 19:35 Initial Comments This 61 year old patient present via EMS with chest pain that started about 18: 00 while carrying a basket of clothes up the stairs. She describes it as a sharp stabbing pain in the center of her chest and radiating down the left arm. Left arm also feels numb. She was given nitroglycerin 2 by EMS. This dropped her pain from 10/10 down to 3/10. She reports pain at the time of my assessment was 2/10. She had some shortness of air that resolved with oxygen by nasal cannula. She has a significant history of coronary artery disease. Her last cardiac catheterization in June of last year demonstrated severe multivessel disease. She had angioplasty and stent placement performed at that time. Patient continues to smoke. She is also a insulin-dependent diabetic. Allergies and Home Medications Allergies Coded Allergies: Fish Containing Products (Unverified Allergy, Unknown, 05/17/15) FROM UNCODED ALLERGIES ketoprofen (Verified Allergy, Unknown, 03/01/08) mushroom (Unverified Allergy, Unknown, 05/17/15) FROM UNCODED ALLERGIES Home Medications Amlodipine Besylate 10 Mg Tablet, 10 MG PO DAILY, (Reported) LAST FILLED #30 2-4-16 Aspirin 81 Mg Tablet.dr, 81 MG PO DAILY, (Reported) Atorvastatin Calcium 40 Mg Tablet, 40 MG PO DAILY, (Reported) LAST FILLED #90 3-30-16 Benzonatate 100 Mg Capsule, 1-2 TAB PO TID, #30 Prescribed by: AMNA VELA on 08/28/161957 Calcium Carbonate 300 Mg Tab.chew, 300 MG PO QID PRN for INDIGESTION, (Reported) Cefdinir 300 Mg Capsule, 300 MG PO BID, #20 Prescribed by: AMNA VELA on 08/28/161957 Cholecalciferol (Vitamin D3) 1,000 Unit Capsule, 1,000 UNIT PO DAILY, (Reported) Clopidogrel Bisulfate 75 Mg Tablet, 75 MG PO DAILY, (Reported) LAST FILLED #30 2-4-16 Esomeprazole Magnesium 40 Mg Cap, 40 MG PO DAILY, (Reported) LAST FILLED #30 2-4-16 Furosemide 40 Mg Tablet, 40 MG PO DAILY, (Reported) LAST FILLED #30 2-4-16 Insulin Aspart 100 Unit/1 Ml Susp, 20 UNITS SQ AC, (Reported) LAST FILLED 2-4-16 Insulin Detemir 100 Unit/1 Ml Insuln.pen, 60 UNITS SQ BID, (Reported) LAST FILLED 2-4-16 Lisinopril 40 Mg Tablet, 40 MG PO DAILY, (Reported) LAST FILLED #30 2-4-16 Mag Hydrox/Al Hydrox/Simeth 355 Ml Oral.susp, 10 ML PO QID PRN for INDIGESTION, (Reported) Ondansetron 4 Mg Tab.rapdis, 4 MG PO Q4H, #10 Prescribed by: AMNA VELA on 08/28/161957 Oseltamivir Phosphate 75 Mg Cap, 75 MG PO BID, #10 Prescribed by: AMNA VELA on 08/28/161957 Sennosides/Docusate Sodium 1 Each Tablet, 1 TAB PO DAILY PRN for CONSTIPATION, ( Reported) Tramadol HCl 50 Mg Tablet, 50 MG PO Q6H PRN for PAIN, #20 Prescribed by: MEENU OWUSU on 07/21/16 0951 Review of Systems Constitutional: no symptoms reported EENTM: No Symptoms Reported Respiratory: See HPI Cardiovascular: See HPI Gastrointestinal: No Symptoms Reported Genitourinary: No Symptoms Reported Musculoskeletal: no symptoms reported Skin: no symptoms reported Psychiatric/Neurological: No Symptoms Reported Endocrine: No Symptoms Reported Past Crfkfpg-Oiqdgj-Fggeep Hx Patient Social History Alcohol Use: Denies Use Recreational Drug Use: No Smoking Status: Current Everyday Smoker Type Used: Cigarettes Former Smoker, Quit: Jul 13, 2000 2nd Hand Smoke Exposure: Yes Recent Foreign Travel: No Contact w/Someone Who Travel: No Recent Infectious Disease Expo: No Recent Hopitalizations: Yes (06/2016--CAD/STENT ) Physical Abuse: No Sexual Abuse: No Mistreated: No Fear: No Immunizations Up To Date Tetanus Booster (TDap): Less than 5yrs Date of Pneumonia Vaccine: May 11, 2015 Date of Influenza Vaccine: Apr 12, 2016 Seasonal Allergies Seasonal Allergies: No Surgeries History of Surgeries: Yes (TUBAL LIGATION,GALLBLADDER REMOVED,TONSILECTOMY, CARPAL TUNNEL SURGERY, ) Surgeries: Cardiac, Coronary Stent, Gallbladder, Orthopedic, Tonsillectomy, 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 Respiratory History of Respiratory Disorde: Yes Respiratory Disorders: Chronic Bronchitis, COPD Currently Using CPAP: No Currently Using BIPAP: No Cardiovascular History of Cardiac Disorders: Yes (MULTIPLE STENTS) Cardiac Disorders: Coronary Artery Disease, Heart Attack, High Cholesterol, Hypertension Neurological History of Neurological Disord: Yes (MILD SPEECH IMPAIRMENT) Neurological Disorders: Neuropathy, Stroke, TIA 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 System : No Hx 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 Disorders: No Sexually Transmitted Disease: No HIV/AIDS: No Female 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 Disorders: Denies 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 History: 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 Genitourinary History of Genitourinary Disor: No Gastrointestinal History of Gastrointestinal Di: Yes Gastrointestinal Disorders: Gastroesophageal Reflux, Hemorrhoids, Ulcer Musculoskeletal History of Musculoskeletal Dis: Yes (BILATERAL CARPAL TUNNEL, RIGHT KNEE SCOPE X 2) Musculoskeletal Disorders: Arthritis Endocrine History of Endocrine Disorders: Yes Endocrine Disorders: Diabetes, Insulin dep Cancer History of Cancer: Yes (S/P SURGERY ONLY) Cancer: Cervical Psychosocial History of Psychiatric Problem: Yes Behavioral Health Disorders: Anxiety Suicide Risk Score: 0 Integumentary History of Skin or Integumenta: No Blood Transfusions History of Blood Disorders: No Family Medical History Significant Family History: Heart Disease, Hypertension Family Medial History: Alcoholism Arthritis Asthma Cardiovascular disease Cataracts Colon cancer Completed stroke Coronary thrombosis Diabetes mellitus Gastroenteritis Glaucoma Headache disorder Hypertension Kidney disease Psychosocial problem Respiratory disorder Seizure disorder Severe allergy Thyroid disease Visual disorder Physical Exam Vital Signs Vital Sign - Last 12Hours 03/04/17 19:39 Temp 97.0 Pulse 84 Resp 18 B/P (MAP) 165/99 Pulse Ox 97 O2 Delivery Room Air Capillary Refill : Less Than 3 Seconds General Appearance: No Apparent Distress, WD/WN HEENT: Normal ENT Inspection, Pharynx Normal Neck: Normal Inspection, No Carotid Bruit, No JVD Respiratory: No Accessory Muscle Use, No Respiratory Distress, Crackles (Faint crackles in the bases), Other (Mild tenderness to palpation over the lower sternum) Cardiovascular: Regular Rate, Rhythm, No Edema, Normal Peripheral Pulses Gastrointestinal: Normal Bowel Sounds, Non Tender, Soft Extremity: Normal Inspection, Non Tender, No Calf Tenderness, No Pedal Edema, Other (Negative Munir) Neurologic/Psychiatric: Alert, Oriented x3, No Motor/Sensory Deficits, Normal Mood/Affect, sack maker II-XII Norm as Tested Skin: Normal Color, Warm/Dry Progress/Results/Core Measures Results/Orders Lab Results Laboratory Tests Test 03/04/17 19:35 Range/Units White Blood Count 7.1 4.3-11.0 10^3/uL Red Blood Count 4.42 4.35-5.85 10^6/uL Hemoglobin 13.1 11.5-16.0 G/DL Hematocrit 38 35-52 % Mean Corpuscular Volume 87 80-99 FL Mean Corpuscular Hemoglobin 30 25-34 PG Mean Corpuscular Hemoglobin Concent 34 32-36 G/DL Red Cell Distribution Width 12.8 10.0-14.5 % Platelet Count 156 130-400 10^3/uL Mean Platelet Volume 11.7 H 7.4-10.4 FL Neutrophils (%) (Auto) 54 42-75 % Lymphocytes (%) (Auto) 39 12-44 % Monocytes (%) (Auto) 7 0-12 % Eosinophils (%) (Auto) 1 0-10 % Basophils (%) (Auto) 0 0-10 % Neutrophils # (Auto) 3.8 1.8-7.8 X 10^3 Lymphocytes # (Auto) 2.8 1.0-4.0 X 10^3 Monocytes # (Auto) 0.5 0.0-1.0 X 10^3 Eosinophils # (Auto) 0.1 0.0-0.3 10^3/uL Basophils # (Auto) 0.0 0.0-0.1 10^3/uL Prothrombin Time 12.9 12.2-14.7 SEC INR Comment 1.0 0.8-1.4 Activated Partial Thromboplast Time 25 24-35 SEC Sodium Level 136 135-145 MMOL/L Potassium Level 3.9 3.6-5.0 MMOL/L Chloride Level 105 98-107 MMOL/L Carbon Dioxide Level 21 21-32 MMOL/L Anion Gap 10 5-14 MMOL/L Blood Urea Nitrogen 16 7-18 MG/DL Creatinine 0.77 0.60-1.30 MG/DL Estimat Glomerular Filtration Rate > 60 BUN/Creatinine Ratio 21 Glucose Level 354 H 70-105 MG/DL Calcium Level 9.1 8.5-10.1 MG/DL Magnesium Level 1.6 L 1.8-2.4 MG/DL Total Bilirubin 0.4 0.1-1.0 MG/DL Aspartate Amino Transf (AST/SGOT) 14 5-34 U/L Alanine Aminotransferase (ALT/SGPT) 11 0-55 U/L Alkaline Phosphatase 67 40-136 U/L Myoglobin 33.1 10.0-92.0 NG/ML Troponin I < 0.30 <0.30 NG/ML Total Protein 6.8 6.4-8.2 GM/DL Albumin 3.4 3.2-4.5 GM/DL My Orders Orders - JENNIFER ELLIS MD Cbc With Automated Diff (03/04/17 19:35) Magnesium (03/04/17 19:35) Chest 1 View, Ap/Pa Only (03/04/17 19:35) Ekg Tracing (03/04/17 19:35) Cardiac Profile 1 (03/04/17 19:35) Comprehensive Metabolic Panel (03/04/17 19:35) Myoglobin Serum (03/04/17 19:35) Protime With Inr (03/04/17 19:35) Partial Thromboplastin Time (03/04/17 19:35) O2 (03/04/17 19:35) Monitor-Rhythm Ecg Trace Only (03/04/17 19:35) Lipid Panel (03/05/17 06:00) Saline Lock/Iv-Start (03/04/17 19:35) Rx-Nitroglycerin Sl Tabs (Rx-Nitrostat S (03/04/17 20:15) Medications Given in ED Current Medications Medications Dose Ordered Sig/Kelli Route Start Time Stop Time Status Last Admin Dose Admin Nitroglycerin 0.4 mg PRN PRN SL 03/04/17 20:15 03/04/17 21:49 DC 03/04/17 20:22 0.4 MG Vital Signs/I&O Vital Sign - Last 12Hours 03/04/17 03/04/17 19:39 19:39 Temp 97.0 Pulse 84 Resp 18 B/P (MAP) 165/99 Pulse Ox 97 O2 Delivery Room Air Room Air Blood Pressure Mean: 121 Progress Note : Progress Note Patient did have improvement of her chest pain with nitroglycerin administered by EMS. She did have some lingering chest pain reported as 2/10 during my assessment. This did completely resolve with a third nitroglycerin. Patient received aspirin by EMS. Case was discussed with Dr. Hughes who agrees with admission for observation. I will write to continue her home blood pressure and cardiac medications as well as her insulin. Patient is being admitted to the hospitalist service for [facility]. ECG Initial ECG Impression Date: Mar 04, 2017 Initial ECG Impression Time: 19:32 Initial ECG Rate: 92 Initial ECG Rhythm: Normal Sinus Initial ECG Intervals: Normal Initial ECG Impression: Normal Comment Normal sinus rhythm with no ST elevation or depression. Chronic right bundle branch block unchanged from prior. No acute ischemic changes. Diagnostic Imaging Diagonstic Imaging: Xray Plain Films/CT/US/NM/MRI: chest Comments NAME: RICCARDO BUITRAGO [facility] REC#: [id number] PT STATUS: REG ER : 1955 PHYSICIAN: JENNIFER ELLIS MD ADMIT DATE: 03/04/17/ER Draft Date of Exam:03/04/17 CHEST 1 VIEW, AP/PA ONLY INDICATION: Chest pain, started around 6:00 this evening. EXAMINATION: Chest, 03/04/2017. COMPARISON: 08/28/16. FINDINGS: Atelectasis at the left lung base is noted with remaining lungs clear. There are no effusions or infiltrates. There is no pneumothorax. Overall low lung volumes are noted. There is some atherosclerotic disease seen along the coronary arteries. IMPRESSION: Fairly stable appearance of the chest with no acute abnormality. Dictated on workstation # [id number] Dict: 03/04/171999 Trans: 03/04/172005 [id number] Interpreted by: FRANCISCO BELTRAN MD Reviewed: Reviewed by Me Departure Communication Communication Dr. Wilson Communication/Consulting Dr. Hughes Impression Impression: Primary Impression: Chest pain Qualified Codes: R07.9 - Chest pain, unspecified Additional Impressions: Coronary artery disease Qualified Codes: I25.10 - Atherosclerotic heart disease of [place] coronary artery without angina pectoris Hyperglycemia Disposition: 09 ADMITTED INPATIENT Condition: Improved Admissions Decision to Admit Reason: Admit from ER (General) Decision to Admit/Date: Mar 04, 2017 Time/Decision to Admit Time: 19:45 Departure-Patient Inst. Referrals: PATRICIO REAVES DO (PCP) Primary Care Physician YUSUF SHARP (Family) Primary Care Physician JENNIFER ELLIS MD Mar 04, 2017 9:04 pm
[2017-03-04 21:45] VITALS: BP 132/87
[2017-03-04 22:00] VITALS: BP 144/81
[2017-03-04] MEDS ORDERED: morphine INJ 4 MG/ML 1 ML (VIAL/SYRINGE) IV PRN (22:00)
[2017-03-04] MEDS ORDERED: CATHETER FLUSH 10 ML SYR IV PRN (22:00)
[2017-03-04] MEDS ORDERED: NITROGLYCERIN SUBLINGUAL 0.4 MG TAB (NITROSTAT) SL PRN (22:00)
[2017-03-04 22:15] VITALS: BP 153/85
[2017-03-04] MEDS ORDERED: ATORVASTATIN 40 MG (LIPITOR) TABLET PO ONE (22:21)
[2017-03-04] MEDS ORDERED: inSUlin DETERMIR 1 UNIT/0.01 ML (LEVEMIR) CHARGE PER UNIT SQ ONE (22:21)
[2017-03-04 22:30] VITALS: BP 148/83
[2017-03-04] MEDS: CATHETER FLUSH 10 ML SYR IV SCH (22:32)
[2017-03-04 22:45] VITALS: BP 147/87
[2017-03-05] VITALS (25 sets, daily range): BP systolic 110–159; BP diastolic 56–86
[2017-03-05] MEDS: CATHETER FLUSH 10 ML SYR IV SCH ×3 (06:38→21:53)
[2017-03-05] MEDS: inSUlin ASPART (NovoLOG) 1 UNIT/0.01 ML (CHARGE PER UNIT) SC SCH ×3 (06:41→14:50)
[2017-03-05] MEDS ORDERED: inSUlin ASPART (NovoLOG) 1 UNIT/0.01 ML (CHARGE PER UNIT) SC SCH (07:00)
[2017-03-05 07:20] LABS: CHOLESTEROL 195 MG/DL (< 200); DIRECT LDL 120 MG/DL (1-129); TRIGLYCERIDES 215 MG/DL (<150); VLDL CHOLESTEROL 43 MG/DL (5-40)
--- NOTE | 2017-03-05 08:27 | Consultation-Cardiology ---
HPI-Cardiology Cardiology Consultation Date of Consultation 03/05/17 Date of Admission Time Seen by Provider: 08:22 Indication: chest pain HPI 61 years old lady with extensive coronary artery disease multiple intervention in the past, hypertension, hyperlipidemia. Patient has stopped taking her medication, still an active smoker. Was in her usual state of health until last evening when she had sudden onset of chest pain described it as sharp initially then dull achiness in the left side of her chest radiating to the left shoulder and arm. Patient expressed that she blacked out for a few seconds. Came into the emergency room was still having active pain. Given sublingual nitroglycerin 3 and reported improvement, this morning she is feeling weak and tired. She has baseline EKG abnormality which is persistent. Patient had extensive disease in the past, severe disease at small vessels in the circumflex artery and distal right, she will have baseline stress test abnormality, we discussed management plan and I decided to proceed with cardiac catheterization. Home Medications & Allergies Allergies: Coded Allergies: Fish Containing Products (Unverified Allergy, Unknown, 05/17/15) FROM UNCODED ALLERGIES ketoprofen (Verified Allergy, Unknown, 03/01/08) mushroom (Unverified Allergy, Unknown, 05/17/15) FROM UNCODED ALLERGIES Home Medication List Reviewed: Yes [id number]-Bdtvqj Hx Patient Social History Marital Status: cohabiting Employed/Student: unemployed Alcohol Use: Denies Use Recreational Drug Use: No Smoking Status: Current Everyday Smoker Type Used: Cigarettes 2nd Hand Smoke Exposure: Yes Recent Foreign Travel: No Recent Infectious Disease Expo: No Recent Hopitalizations: Yes (06/2016--CAD/STENT ) Physical Abuse Screen: No Sexual Abuse: No Immunizations Up To Date Tetanus Booster (TDap): Less than 5yrs Date of Pneumonia Vaccine: May 11, 2015 Date of Influenza Vaccine: Apr 12, 2016 Past Medical History past medical history as discussed below Family Medical History Significant Family History: Heart Disease, Hypertension Family History: Relation not specified for: Alcoholism Arthritis Asthma Cardiovascular disease Cataracts Colon cancer Completed stroke Coronary thrombosis Diabetes mellitus Gastroenteritis Glaucoma Headache disorder Hypertension Kidney disease Psychosocial problem Respiratory disorder Seizure disorder Severe allergy Thyroid disease Visual disorder Constitutional: see HPI, malaise, weakness EENTM: see HPI, no symptoms reported Respiratory: see HPI, No cough, dyspnea on exertion, No hemoptysis, No orthopnea, No phlegm, No short of breath, No stridor, No wheezing, No other Cardiovascular: see HPI, chest pain, No edema, No Hx of Intervention, No palpitations, syncope, No vascular heart diseas, No other Gastrointestinal: no symptoms reported, see HPI Genitourinary: no symptoms reported, see HPI Musculoskeletal: no symptoms reported, see HPI Skin: no symptoms reported, see HPI Psychiatric/Neurological: No Symptoms Reported, See HPI Reviewed Test Results Reviewed Test Results Lab Laboratory Tests Test 03/04/17 19:35 03/05/17 00:38 03/05/17 06:42 Range/Units White Blood Count 7.1 4.3-11.0 10^3/uL Red Blood Count 4.42 4.35-5.85 10^6/uL Hemoglobin 13.1 11.5-16.0 G/DL Hematocrit 38 35-52 % Mean Corpuscular Volume 87 80-99 FL Mean Corpuscular Hemoglobin 30 25-34 PG Mean Corpuscular Hemoglobin Concent 34 32-36 G/DL Red Cell Distribution Width 12.8 10.0-14.5 % Platelet Count 156 130-400 10^3/uL Mean Platelet Volume 11.7 H 7.4-10.4 FL Neutrophils (%) (Auto) 54 42-75 % Lymphocytes (%) (Auto) 39 12-44 % Monocytes (%) (Auto) 7 0-12 % Eosinophils (%) (Auto) 1 0-10 % Basophils (%) (Auto) 0 0-10 % Neutrophils # (Auto) 3.8 1.8-7.8 X 10^3 Lymphocytes # (Auto) 2.8 1.0-4.0 X 10^3 Monocytes # (Auto) 0.5 0.0-1.0 X 10^3 Eosinophils # (Auto) 0.1 0.0-0.3 10^3/uL Basophils # (Auto) 0.0 0.0-0.1 10^3/uL Prothrombin Time 12.9 12.2-14.7 SEC INR Comment 1.0 0.8-1.4 Activated Partial Thromboplast Time 25 24-35 SEC Sodium Level 136 135-145 MMOL/L Potassium Level 3.9 3.6-5.0 MMOL/L Chloride Level 105 98-107 MMOL/L Carbon Dioxide Level 21 21-32 MMOL/L Anion Gap 10 5-14 MMOL/L Blood Urea Nitrogen 16 7-18 MG/DL Creatinine 0.77 0.60-1.30 MG/DL Estimat Glomerular Filtration Rate > 60 BUN/Creatinine Ratio 21 Glucose Level 354 H 70-105 MG/DL Calcium Level 9.1 8.5-10.1 MG/DL Magnesium Level 1.6 L 1.8-2.4 MG/DL Total Bilirubin 0.4 0.1-1.0 MG/DL Aspartate Amino Transf (AST/SGOT) 14 5-34 U/L Alanine Aminotransferase (ALT/SGPT) 11 0-55 U/L Alkaline Phosphatase 67 40-136 U/L Myoglobin 33.1 10.0-92.0 NG/ML Troponin I < 0.30 < 0.30 < 0.30 <0.30 NG/ML Total Protein 6.8 6.4-8.2 GM/DL Albumin 3.4 3.2-4.5 GM/DL Triglycerides Level 215 H <150 MG/DL Cholesterol Level 195 < 200 MG/DL LDL Cholesterol Direct 120 1-129 MG/DL VLDL Cholesterol 43 H 5-40 MG/DL HDL Cholesterol 46 40-60 MG/DL Physical Exam Vital Signs Vital Sign - Last 12Hours 03/04/17 19:39 Temp 97.0 Pulse 84 Resp 18 B/P (MAP) 165/99 Pulse Ox 97 O2 Delivery Room Air Capillary Refill : Less Than 3 Seconds General Appearance: No Apparent Distress, WD/WN Eyes: Bilateral Eye Normal Inspection, Bilateral Eye PERRL, Bilateral Eye EOMI HEENT: PERRL/EOMI, TMs Normal, Normal ENT Inspection, Pharynx Normal Neck: Full Range of Motion, Normal Inspection, Non Tender, Supple, Carotid Bruit Respiratory: Chest Non Tender, Lungs Clear, Normal Breath Sounds, No Accessory Muscle Use, No Respiratory Distress Cardiovascular: Regular Rate, Rhythm, No Edema, No Gallop, No JVD, No Murmur, Normal Peripheral Pulses Gastrointestinal: Normal Bowel Sounds, No Organomegaly, No Pulsatile Mass, Non Tender, Soft Back: Normal Inspection, No CVA Tenderness, No Vertebral Tenderness Extremity: Normal Capillary Refill, Normal Inspection, Normal Range of Motion, Non Tender, No Calf Tenderness, No Pedal Edema Neurologic/Psychiatric: Alert, Oriented x3, No Motor/Sensory Deficits, Normal Mood/Affect Skin: Normal Color, Warm/Dry Lymphatic: No Adenopathy A/P-Cardiology Admission Diagnosis unstable angina Coronary artery disease Hypertension Hyperlipidemia Assessment/Plan Chest pain, unstable angina, extensive coronary artery disease, last cardiac catheterization was done in June 2016, multiple intervention the past, has small vessel disease which make her stress test abnormal constantly. She is having active chest pain brought her to the hospital responded to nitroglycerin , planning for cardiac catheterization today. Coronary artery disease, multiple intervention in the past, 2 stents to the LAD Promus Premier 2.524 and 2.520 done on May 15, 2015, 2 stents Promus Premier 3.512 and 2.7524 in the midright coronary artery done on May 16, 2015, another cath on June 2016, Resolute Intergrity stent 2.5x18 mm to Lcx , cardiac catheterization showed severe in-stent restenosis in the LAD underwent cutting balloon the balloon angioplasty, severe stenosis at the distal right coronary artery underwent primary stenting, still having severe stenosis at the distal circumflex artery that is treated medically, has stopped taking her medication, planning to do cardiac catheterization History of cellulitis of the right groin after the procedure underwent IND. Recovered well. Will do left groin access. Hypertension, good control at this time. Continue to monitor Hyperlipidemia, maintained on Lipitor 40 mg daily, noncompliant with medication Tobaccoism, patient is smoking again, she was encouraged to stop smoking. Diabetes mellitus, followed and managed by primary care physician History of syncope, no further syncopal episodes were reported Noncompliance with medication, educated about the importance of compliance with medication. Clinical Quality Measures AMI/AHF: ASA po Prior to arrival: Yes (324 asa) DVT/VTE Risk/Contraindication: Risk Factor Score Per Nursin RFS Level Per Nursing on Admit: 3=High FABY CHANDLER MD Mar 05, 2017 08:27
[2017-03-05] MEDS: amLODIPine 10 MG (NORVASC) TAB PO SCH (08:32)
[2017-03-05] MEDS: PANTOPRAZOLE 40 MG (PROTONIX) TAB PO SCH (08:32)
[2017-03-05] MEDS: CLOPIDOGREL 75 MG (PLAVIX) TABLET PO SCH (08:32)
[2017-03-05] MEDS: lisINopril 20 MG (ZESTRIL) TAB PO SCH (08:32)
[2017-03-05 08:40] LABS: ANION GAP 13 MMOL/L (5-14); BLOOD UREA NITROGEN 17 MG/DL (7-18); BUN/CREATININE RATIO 22; CALCIUM 9.2 MG/DL (8.5-10.1); CARBON DIOXIDE 20 MMOL/L (21-32); CHLORIDE 106 MMOL/L (98-107); CREATININE SERUM 0.76 MG/DL (0.60-1.30); GFR ESTIMATED > 60; GLUCOSE 299 MG/DL (70-105); POTASSIUM 3.5 MMOL/L (3.6-5.0); SODIUM 139 MMOL/L (135-145)
[2017-03-05] MEDS ORDERED: NS IV 1000 ML 1,000 ML ONE (08:57)
[2017-03-05] MEDS ORDERED: HEParin (CATH LAB) 2,000 ML IV ONE (08:57)
[2017-03-05] MEDS ORDERED: inSUlin DETERMIR 1 UNIT/0.01 ML (LEVEMIR) CHARGE PER UNIT SQ SCH (09:00)
[2017-03-05] MEDS ORDERED: ASPIRIN E.C. 325 MG (ECOTRIN) TABLET PO SCH (09:00)
[2017-03-05] MEDS: NS IV 1000 ML 1,000 ML IV SCH ×2 (09:26→18:40)
--- NOTE | 2017-03-05 10:01 | Cardiac Procedure Note-CS/ASA ---
Pre-Procedure Note Pre-Op Procedure Note H&P Reviewed The H&P was reviewed, patient examined and no changes noted. Date H&P Reviewed: Mar 05, 2017 Time H&P Reviewed: 10:01 Conscious Sedation Pre-Proced Time Reviewed: 10:01 ASA Class: 3 Airway Mallampati Classification: ([place] appropriate class) I. II. III, IV Lungs Heart ASA score ASA 1: a normal healthy patient ASA 2: a patient with a mild systemic disease (mid diabetes, controlled hypertension, obesity x ASA 3: a patient with a severe systemic disease that limits activity (angina , COPD, prior Myocardial infarction) ASA 4: a patient with an incapacitating disease that is a constant threat to life (CHF, renal failure) ASA 5: a moribund patient not expected to survive 24 hrs. (ruptured aneurysm) ASA 6: a declared brain patient whose organs are being harvested. For emergent operations, add the letter E after the classification Grade 3 Sedation Plan: Analgesia, Amnesia, Plan communicated to team members, Discussed options with patient/fam, Discussed risks with patient/fam Note The patient is an appropriate candidate to undergo the planned procedure, sedation, and anesthesia. The patient immediately re-assessed prior to indication. FABY CHANDLER MD Mar 05, 2017 10:01 am
[2017-03-05] MEDS ORDERED: fentaNYL INJECTION 100 MCG/2 ML AMP ONE ×2 (10:36→15:47)
[2017-03-05] MEDS ORDERED: MIDAZOLAM 5 MG/5 ML (VERSED) VIAL ONE (10:36)
[2017-03-05] MEDS ORDERED: IBUP-30 PO (11:11)
[2017-03-05] MEDS ORDERED: HEParin 1000 UNIT/ML (10ML VIAL) FOR BOLUS ONE (11:39)
[2017-03-05] MEDS ORDERED: NITROGLYCERIN DRIP 25 MG/D5W 250 ML IV ONE (11:39)
--- NOTE | 2017-03-05 11:50 | Short Stay Summary-Hospitalist ---
HPI History of Present Illness: HPI/Chief Complaint CC: Chest pain HPI: This is a 61 yoWF pt of [facility] with past medical hx of CAD and HTN who presented to the ER with chest pain. She sees Dr. Hughes regularly and he plans on cardiac cath. 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 Pt was informed that she will have heart cath with Dr. Hughes at 11:30 today Pt denies smoking, but was a former smoker, and denies ETOH use Pt states that she used to work at [employer] for 9.5 years. Physical exam stable. Lungs sound Pt confirms PCP at [facility], Yamilex Alcantara Scribed by Tamie Rosen under the direct supervision of Dr. Workman. Source: patient Exam Limitations: no limitations Date Seen 03/05/17 Time Seen by Provider: 09:30 Attending Physician Cherri Workman DO PCP Laverne Alvarado DO Referring Physician Date of Admission Mar 04, 2017 at 20:57 Home Medications & Allergies Home Medications Reviewed patient Home Medication Reconciliation Form Allergies Allergies Coded Allergies Fish Containing Products (Unverified Allergy, Unknown, 05/17/15) FROM UNCODED ALLERGIES ketoprofen (Verified Allergy, Unknown, 03/01/08) mushroom (Unverified Allergy, Unknown, 05/17/15) FROM UNCODED ALLERGIES Past [id number]-[id number] Hx Patient Social History Marrital Status: single, cohabiting Employed/Student: unemployed Alcohol Use: Denies Use Recreational Drug Use: No Smoking Status: Current Everyday Smoker Former Smoker, Quit: Jul 13, 2000 Type Used: Cigarettes 2nd Hand Smoke Exposure: Yes Physical Abuse Screen: No Sexual Abuse: No Recent Foreign Travel: No Contact w/other who traveled: No Recent Hopitalizations: Yes (06/2016--CAD/STENT ) Recent Infectious Disease Expo: No Immunizations Up To Date Tetanus Booster (TDap): Less than 5yrs Pediatric: No Date of Pneumonia Vaccine: May 11, 2015 Date of Influenza Vaccine: Apr 12, 2016 Seasonal Allergies Seasonal Allergies: No Surgeries Yes (TUBAL LIGATION,GALLBLADDER REMOVED,TONSILECTOMY,CARPAL TUNNEL SURGERY, ) Cardiac, Coronary Stent, Gallbladder, Orthopedic, Tonsillectomy, 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 Respiratory Yes Currently Using CPAP: No Currently Using BIPAP: No Cardiovascular Yes (MULTIPLE STENTS) Coronary Artery Disease, Heart Attack, High Cholesterol, Hypertension Neurological Yes (MILD SPEECH IMPAIRMENT) Neuropathy, Stroke, TIA 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 System : No Hx 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 Disorders: No Sexually Transmitted Disease: No HIV/AIDS: No 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 Genitourinary No Gastrointestinal Yes Gastroesophageal Reflux, Hemorrhoids, Ulcer Musculoskeletal Yes (BILATERAL CARPAL TUNNEL, RIGHT KNEE SCOPE X 2) Arthritis Endocrine History of Endocrine Disorders: Yes Endocrine Disorders: Diabetes, Insulin dep Are Your Blood Sugars Over 250: Yes HEENT History of HEENT Disorders: No Cancer Yes (S/P SURGERY ONLY) Cervical Did You Recieve Any Treatments: No Psychosocial History of Psychiatric Problem: Yes Behavioral Health Disorders: Anxiety Integumentary History of Skin or Integumenta: No Blood Transfusions History of Blood Disorders: No Family Medical History Significant Family History: Heart Disease, Hypertension Family Hx: Alcoholism Arthritis Asthma Cardiovascular disease Cataracts Colon cancer Completed stroke Coronary thrombosis Diabetes mellitus Gastroenteritis Glaucoma Headache disorder Hypertension Kidney disease Psychosocial problem Respiratory disorder Seizure disorder Severe allergy Thyroid disease Visual disorder Review of Systems Constitutional: see HPI, weakness EENTM: no symptoms reported Respiratory: no symptoms reported Cardiovascular: chest pain Gastrointestinal: no symptoms reported Genitourinary: no symptoms reported Musculoskeletal: no symptoms reported Skin: no symptoms reported Psychiatric/Neurological: No Symptoms Reported All Other Systems Reviewed Negative Unless Noted: Yes Physical Exam Physical Exam Vital Signs Vital Sign - Last 12Hours 03/04/17 19:39 Temp 97.0 Pulse 84 Resp 18 B/P (MAP) 165/99 Pulse Ox 97 O2 Delivery Room Air Capillary Refill : Less Than 3 Seconds General Appearance: No Apparent Distress, WD/WN, Chronically ill Eyes: Bilateral Eye Normal Inspection, Bilateral Eye PERRL HEENT: PERRL/EOMI, Normal ENT Inspection, Pharynx Normal Neck: Full Range of Motion, Normal Inspection, Non Tender, Supple, Carotid Bruit Respiratory: Chest Non Tender, Lungs Clear, Normal Breath Sounds, No Accessory Muscle Use, No Respiratory Distress Cardiovascular: Regular Rate, Rhythm, No Edema, No Gallop, No JVD, No Murmur, Normal Peripheral Pulses Gastrointestinal: Normal Bowel Sounds, No Organomegaly, No Pulsatile Mass, Non Tender, Soft Back: Normal Inspection, No CVA Tenderness, No Vertebral Tenderness Extremity: Normal Capillary Refill, Normal Inspection, Normal Range of Motion, Non Tender, No Calf Tenderness, No Pedal Edema Neurologic/Psychiatric: Alert, Oriented x3, No Motor/Sensory Deficits, Normal Mood/Affect Skin: Normal Color, Warm/Dry Lymphatic: No Adenopathy Results Results/Procedures Lab Laboratory Tests 03/04/17 19:35 03/05/17 06:38 Short Stay Diagnosis Discharge Diagnosis-Short Stay Admission Diagnosis Assessment: Chest pain and known CAD patient Diabetes mellitus Hypertension Hyperlipidemia Final Discharge Diagnosis Assessment: Chest pain and known CAD patient Diabetes mellitus Hypertension Hyperlipidemia Conclusion Plan Plan: Heart Cath 11:30 today Monitor labs Recon home meds when confirmed Clinical Quality Measures AMI/AHF: ASA po Prior to arrival: Yes (324 asa) DVT/VTE Risk/Contraindication: Risk Factor Score Per Nursin RFS Level Per Nursing on Admit: 3=High CHERRI WORKMAN DO Mar 05, 2017 11:50
[2017-03-05] MEDS ORDERED: IBUPROFEN TABLET 200 MG TAB PO PRN (12:15)
[2017-03-05] MEDS ORDERED: CLOPIDOGREL 300 MG (PLAVIX) TABLET PO ONE (12:17)
[2017-03-05] MEDS ORDERED: NS IV 1000 ML 1,000 ML IV SCH (12:19)
--- NOTE | 2017-03-05 12:27 | Cardiac Cath Report ---
Cardiac Cath Report Physician (s)/Testboard Operator (s) Physician FABY CHANDLER MD Pre-Procedure Diagnosis Pre-Procedure Diagnosis: unstable angina Post-Procedure Note Procedure Start Date: Mar 05, 2017 Procedure Start Time: 11:30 Name of Procedure: left heart catheterization, left ventriculogram PTCA to the LAD Findings/Procedure Note PROCEDURE NOTE: After explaining the procedure to the patient, all pros and cons were explained, all questions were answered. The patient signed the consent and then she was placed on the cardiac catheterization laboratory. The patient was placed on the cardiac catheterization laboratory. Groin was prepped SL fashion local anesthesia was used. Sheath placed in the artery. Abi right and left catheter were used to access the coronary system. Pigtail was used to access the left ventricular cavity. Left ventriculogram was done Patient had total occlusion of the LAD, I proceeded with percutaneous intervention using FL guide then Voda guide, BMW wire and whisper wire, used multiple balloons, I was able to advance the balloon to the mid LAD did multiple inflations up to 1 minute inflation using 2.5 and 2.75 mm balloons, there is no establishment of flow after the balloon. Given intracoronary nitroglycerin at that time I decided to abort the procedure. No closure device was done FINDINGS: Hemodynamics LV 111/13 and diastolic pressure of 13 Aorta 118/59 mean of 86 ANATOMY: Left Main has mild disease Left Anterior Descending is totally occluded at the midportion severe disease of the proximal, multiple balloon inflation of the proximal and mid and distal LAD using multiple different size balloon using 2.5 and 2.75 balloons, no reestablishment of flow. Medical therapy is recommended Left Circumflex has severe disease distally, small artery. Right Coronory Artery large dominant artery, patent stents with good flow distally LV Gram is normal with normal systolic function estimated ejection fraction 60 percent CONCLUSION: 1. Total occlusion of the mid LAD, balloon angioplasty using 2 different size balloon, there is no reestablishment of the flow, it appear that the artery is diffusely diseased and occluded. The proximal portion has severe disease I did balloon angioplasty was slight improvement 2. Severe disease at the mid and distal circumflex artery fairly small artery. 3. Patent stent in the large dominant right coronary artery 4. Normal left ventricular size with preserved systolic function, estimated ejection fraction 60 percent normal left ventricular end-diastolic pressure DISCUSSION AND RECOMMENDATION: Patient has small vessel disease, medical therapy is recommended, multiple attempts to reestablish flow in the LAD did not show any improvement in the flow. Patient is known to have severe disease in the circumflex artery that has not changed. Anesthesia Type: Conscious Sedation Estimated blood loss (mL): 25 ml Contrast Amount: 107 ml Total Radiation Dose: 280 mGy Post-Procedure Diagnosis Post-operative diagnosis: unstable angina Coronary artery disease FABY CHANDLER MD Mar 05, 2017 12:26
[2017-03-05] MEDS ORDERED: PATIENT MAY USE OWN MEDS, ALL PO SCH (12:30)
[2017-03-05] MEDS ORDERED: DEXTROSE 50% 50 ML (IMS) SYR ONE (14:49)
[2017-03-05] MEDS ORDERED: DEXTROSE 50% 50 ML (IMS) SYR IV NR (15:00)
[2017-03-05] MEDS: inSUlin DETERMIR 1 UNIT/0.01 ML (LEVEMIR) CHARGE PER UNIT SQ SCH (15:27)
[2017-03-05] MEDS ORDERED: ATROPINE INJECTION 1 MG/10 ML SYR (ABBOTT) ONE (15:47)
[2017-03-05] MEDS ORDERED: fentaNYL INJECTION 100 MCG/2 ML AMP IVP ONE (16:00)
[2017-03-05] MEDS ORDERED: inSUlin ASPART (NovoLOG) 1 UNIT/0.01 ML (CHARGE PER UNIT) SQ SCH (16:00)
[2017-03-05] MEDS ORDERED: ATORVASTATIN 40 MG (LIPITOR) TABLET PO SCH (21:00)
[2017-03-06] VITALS: BP 130/73
[2017-03-06 04:00] VITALS: BP 148/83
[2017-03-06 04:29] LABS: MEAN PLATELET VOLUME 11.7 FL (7.4-10.4); RED BLOOD COUNT 4.2 10^6/uL (4.35-5.85); RED CELL DISTRIBUTION WIDTH 12.7 % (10.0-14.5); WHITE BLOOD COUNT 6.1 10^3/uL (4.3-11.0)
[2017-03-06 04:46] LABS: ANION GAP 10 MMOL/L (5-14); BLOOD UREA NITROGEN 14 MG/DL (7-18); BUN/CREATININE RATIO 21; CALCIUM 8.4 MG/DL (8.5-10.1); CARBON DIOXIDE 21 MMOL/L (21-32); CHLORIDE 110 MMOL/L (98-107); CREATININE SERUM 0.68 MG/DL (0.60-1.30); GFR ESTIMATED > 60; GLUCOSE 196 MG/DL (70-105); POTASSIUM 3.6 MMOL/L (3.6-5.0); SODIUM 141 MMOL/L (135-145)
[2017-03-06] MEDS: PANTOPRAZOLE 40 MG (PROTONIX) TAB PO SCH (06:51)
[2017-03-06] MEDS: CATHETER FLUSH 10 ML SYR IV SCH (06:52)
--- NOTE | 2017-03-06 08:02 | Cardiology Progress Note ---
Subjective Date Seen by Provider: Mar 06, 2017 Time Seen by Provider: 08:00 Subjective/Events-last exam patient is laying down in bed, feeling better, no further episode of chest pain , groin is healing well. Educated on compliance with medication and smoking cessation, expressed that she will stop smoking starting today. Review of Systems General: No Chills, No Night Sweats, No Fatigue, No Malaise, No Appetite, No Other HEENT: No Head Aches, No Visual Changes, No Eye Pain, No Ear Pain, No Dysphasia , No Sinus Congestion, No Post Nasal Drip, No Sore Throat, No Other Pulmonary: No Dyspnea, No Cough, No Pleuritic Chest Pain, No Other Cardiovascular: No: Chest Pain, Palpitations, Orthopnea, Paroxysmal Noc. Dyspnea, Edema, Lt Headedness, Other Objective-Cardiology Exam Last Set of Vital Signs Vital Signs 03/06/17 04:00 Temp 97.9 Pulse 75 Resp 16 B/P (MAP) 148/83 Pulse Ox 98 O2 Delivery Room Air Capillary Refill : Less Than 3 Seconds I&O Intake and Output 03/07/17 00:00 Intake Total 300 ml Output Total 350 ml Balance -50 ml Intake Oral 300 ml Output Urine Total 350 ml General: Alert, Oriented X3, Cooperative HEENT: Atraumatic, PERRLA Neck: Supple, No JVD, No Thyromegaly Lungs: Clear to Auscultation, Normal Air Movement Heart: Regular Rate, Normal S1, Normal S2, No Murmurs Abdomen: Normal Bowel Sounds, Soft, No Tenderness, No Hepatosplenomegaly, No Masses Extremities: No Clubbing, No Cyanosis, No Edema, Normal Pulses, No Tenderness/ Swelling Skin: No Rashes, No Breakdown, No Significant Lesion Neuro: Normal Gait, Normal Speech, Strength at 5/5 X4 Ext, Normal Tone, Sensation Intact Psych/Mental Status: Mental Status NL, Mood NL Results Lab Laboratory Tests 03/06/17 04:12 A/P-Cardiology Admission Diagnosis unstable angina Coronary artery disease Hypertension Hyperlipidemia Assessment/Plan Chest pain, unstable angina, extensive coronary artery disease, underwent cardiac catheterization yesterday showing total occlusion of the LAD Coronary artery disease, multiple intervention in the past, 2 stents to the LAD Promus Premier 2.524 and 2.520 done on May 15, 2015, 2 stents Promus Premier 3.512 and 2.7524 in the midright coronary artery done on May 16, 2015, another cath on June 2016, Resolute Intergrity stent 2.5x18 mm to Lcx , cardiac catheterization showed severe in-stent restenosis in the LAD underwent cutting balloon the balloon angioplasty, severe stenosis at the distal right coronary artery underwent primary stenting, still having severe stenosis at the distal circumflex artery that is treated medically, cardiac catheterization was carried out yesterday showing total occlusion of the LAD, balloon antiplastic to the proximal LAD was done, and there is no improvement in the flow at the mid and distal. I was able to advance the wire without improvement in the flow. Circumflex has severe disease that did not change. Right coronary artery is patent. If patient continued to be symptomatic I'll consider referral to a tertiary care center History of cellulitis of the right groin after the procedure underwent IND. Recovered well. Hypertension, good control at this time. Continue to monitor Hyperlipidemia, maintained on Lipitor 40 mg daily, noncompliant with medication Tobaccoism, patient is smoking again, she was encouraged to stop smoking. Diabetes mellitus, followed and managed by primary care physician History of syncope, no further syncopal episodes were reported Noncompliance with medication, educated about the importance of compliance with medication. Clinical Quality Measures AMI/AHF: ASA po Prior to arrival: Yes (324 asa) DVT/VTE Risk/Contraindication: Risk Factor Score Per Nursin RFS Level Per Nursing on Admit: 3=High FABY CHANDLER MD Mar 06, 2017 08:01
[2017-03-06] MEDS ORDERED: CLOP75TA28 PO (08:03)
[2017-03-06] MEDS ORDERED: ATOR40TA PO (08:03)
[2017-03-06] MEDS ORDERED: NITR0.4T SL (08:03)
[2017-03-06] MEDS ORDERED: AMLO10TA2 PO (08:04)
[2017-03-06] MEDS ORDERED: LISI-552 PO (08:04)
--- NOTE | 2017-03-06 08:06 | Discharge Inst-Post CATH ---
Discharge Inst-CATH Post Cardiac Cath D/C Inst Follow Up/Plan Appointment with Dr. Hughes's office in one to 2 weeks CARDIAC CATH DISCHARGE INSTRUCTIONS *Hold Metformin for 48 hours post heart cath. ACTIVITY * Go Home directly and rest. * Limit activity of the leg (or wrist if it was used) for 7 days including aerobics, swimming, jogging, bicycling, etc. * Restrict stair-climbing for 7 days if possible, if not, climb up with your non -cath leg, then bring together on the same step. * Avoid lifting, pushing, pulling or excessive movement of the affected extremity for 7 days. * Customary sexual activity may be resumed after 2 days-use caution not to use a position that strains or causes pain to the affected extremity. * No driving for 24 hours. * NO SMOKING. * Avoid straining for bowel movements for 7 days. * Gentle walking on level ground is allowed. * Returning to work will depend on the type of procedure and the results. Your doctor will discuss this with you. CALL YOUR DOCTOR FOR ANY OF THE FOLLOWING: *If bleeding from the puncture site occurs- Apply gentle pressure to site with clean cloth and call your doctor or EMS. * If a knot or lump forms under the skin, increases in size, or causes pain. * If bruising appears to be worsening or moving further down your leg instead of disappearing. * Temperature above 101 F. CARE OF YOUR GROIN INCISION; * Bruising or purple discoloration of the skin near the puncture site is common. * You may shower only, no bathtub bathing for 5 days. Be careful to avoid slipping as your leg may feel stiff. * If a closure device was used on your femoral artery, please see the attached guide regarding care of the device and your leg. * REMOVE the dressing from your groin the next day after your procedure in the shower. CARE OF YOUR WRIST INCISION; * Bruising or purple discoloration of the skin near the puncture site is common. * You may shower. * DO NOT submerge wrist. * Remove dressing in 24 hours. FABY HUGHES MD Mar 06, 2017 08:06
[2017-03-06 08:40] VITALS: BP 138/76
[2017-03-06] MEDS ORDERED: ASPIRIN E.C. 81 MG (ECOTRIN) TAB PO SCH (09:00)
[2017-03-06] MEDS: amLODIPine 10 MG (NORVASC) TAB PO SCH (09:51)
[2017-03-06] MEDS: CLOPIDOGREL 75 MG (PLAVIX) TABLET PO SCH (09:51)
[2017-03-06] MEDS: lisINopril 20 MG (ZESTRIL) TAB PO SCH (09:51)
[2017-03-06] MEDS: inSUlin DETERMIR 1 UNIT/0.01 ML (LEVEMIR) CHARGE PER UNIT SQ SCH (10:25)
--- NOTE | 2017-03-06 11:40 | Discharge Summary-Hospitalist ---
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 Hughes did pending DC. LED completely shut down. She will be on meds and follow up with Dr. Hughes. Pt is on several new meds. These may not be new to pt as she should have been on them before. SW Review: Meds discussed with pt and she will be receiving them at [facility] Patient Interview: Pt denies experiencing pain currently and would like to DC SW will come up to discuss her meds Physical exam stable. Lungs sound perfect. Plan: Meds to [facility] Scribed by Tamie Rosen under the direct supervision of Dr. Wilson. Discharge Summary Discharge Physical Examination Allergies: Coded Allergies: Fish Containing Products (Unverified Allergy, Unknown, 05/17/15) FROM UNCODED ALLERGIES ketoprofen (Verified Allergy, Unknown, 03/01/08) mushroom (Unverified Allergy, Unknown, 05/17/15) FROM UNCODED ALLERGIES Vitals & I&Os Vital Signs Date Time Temp Pulse Resp B/P (MAP) Pulse Ox O2 Delivery O2 Flow Rate FiO2 03/06/17 07:00 82 03/06/17 04:00 Room Air 03/06/17 04:00 97.9 16 148/83 98 Hospital Course Hospital course: Patient had an uneventful hospital course she was admitted for chest pain and she underwent cardiac catheterization by Dr. Hughes that revealed completely occluded LAD that no intervention was possible. She will be medically treated and all medications were sent to [facility] since she could not afford anything that was sent into the local pharmacy and that was done prior to discharge. Labs (last 24 hrs) Laboratory Tests 03/05/17 14:00: Activated Partial Thromboplast Time 83H 03/05/17 14:52: Glucometer 54*L 03/05/17 14:55: Activated Partial Thromboplast Time 51H 03/05/17 15:23: Glucometer 116H 03/05/17 23:29: Glucometer 281H 03/06/17 04:12: White Blood Count 6.1, Red Blood Count 4.20L, Hemoglobin 12.5, Hematocrit 37, Mean Corpuscular Volume 88, Mean Corpuscular Hemoglobin 30, Mean Corpuscular Hemoglobin Concent 34, Red Cell Distribution Width 12.7, Platelet Count 134, Mean Platelet Volume 11.7H, Sodium Level 141, Potassium Level 3.6, Chloride Level 110H, Carbon Dioxide Level 21, Anion Gap 10, Blood Urea Nitrogen 14, Creatinine 0.68, Estimat Glomerular Filtration Rate > 60, BUN/Creatinine Ratio 21, Glucose Level 196H, Calcium Level 8.4L 03/06/17 09:50: Glucometer 204H Pending Labs Laboratory Tests 03/06/17 04:12: White Blood Count 6.1, Red Blood Count 4.20, Hemoglobin 12.5, Hematocrit 37, Mean Corpuscular Volume 88, Mean Corpuscular Hemoglobin 30, Mean Corpuscular Hemoglobin Concent 34, Red Cell Distribution Width 12.7, Platelet Count 134, Mean Platelet Volume 11.7, Sodium Level 141, Potassium Level 3.6, Chloride Level 110, Carbon Dioxide Level 21, Anion Gap 10, Blood Urea Nitrogen 14, Creatinine 0.68, Estimat Glomerular Filtration Rate > 60, BUN/Creatinine Ratio 21, Glucose Level 196, Calcium Level 8.4 03/06/17 09:50: Glucometer 204 Discharge Home Medications: Active Scripts Active Lisinopril 20 Mg Tablet 40 Mg PO DAILY@0900 Amlodipine Besylate 10 Mg Tablet 10 Mg PO DAILY Nitrostat (Nitroglycerin) 0.4 Mg Tab.subl 0.4 Mg SL PRN PRN Lipitor (Atorvastatin Calcium) 40 Mg Tablet 40 Mg PO HS Clopidogrel (Clopidogrel Bisulfate) 75 Mg Tablet 75 Mg PO DAILY Reported Advil (Ibuprofen) 200 Mg Tablet 400 Mg PO Q6H PRN Novolog (Insulin Aspart) 100 Unit/1 Ml Susp 20 Units SQ AC Levemir Flextouch (Insulin Detemir) 100 Unit/1 Ml Insuln.pen 80 Units SQ BID Aspirin EC (Aspirin) 81 Mg Tablet.dr 81 Mg PO DAILY Instructions to patient/family Please see electonic discharge instructions given to patient. Clinical Quality Measures AMI/AHF: ASA po Prior to arrival: Yes (324 asa) DVT/VTE Risk/Contraindication: Risk Factor Score Per Nursin RFS Level Per Nursing on Admit: 3=High ZOE WILSON DO Mar 06, 2017 11:40
[2017-03-06 12:00] VITALS: BP 138/76
== END 2017-03-06 08:04 | disposition home or self-care (01) ==
LOC: EDUNIT# 19:29 → ER 19:31 → UNDOADMOB 20:57 → ICU 20:57 → CSDo 21:40 → ICU 21:40 → UNDOADMOB 21:40 → CSDo 03-06 08:04 → UNDODISOB 03-06 12:00
PROVIDERS: ATTEND Internal Medicine
DX: I25.110 Atherosclerotic heart disease of native coronary artery with unstable angina pectoris (principal); I25.82 Chronic total occlusion of coronary artery; E11.9 Type 2 diabetes mellitus without complications; I10 Essential (primary) hypertension; E78.5 Hyperlipidemia, unspecified; Z72.0 Tobacco use; Z91.19 Patient's noncompliance with other medical treatment and regimen; Z79.4 Long term (current) use of insulin; Z79.899 Other long term (current) drug therapy; Z95.5 Presence of coronary angioplasty implant and graft
CPT/HCPCS: 36415; 71010; 80048; 80053; 80061; 82962; 83735; 83874; 84484; 85025; 85027; 85347; 85610; 85730; 92920; 93005; 93041; 93458

== ENCOUNTER 2017-08-06 15:00 | Emergency (ER) | payer MEDICARE ==
[~2017-08-06] VITALS: Ht 172.7 cm; Wt 62.1 kg
[~2017-08-06 15:00] MED LIST changes: +ATOR40TA PO; +LISI-552 PO; -METO-274 PO; +METO-395 PO; +NITR0.4T SL; +QUIN20TA16 PO; -QUIN20TA27 PO
[2017-08-06 15:04] VITALS: BP 133/80
--- NOTE | 2017-08-06 15:25 | ED General ---
General Chief Complaint: Cough/Cold/Flu Symptoms Stated Complaint: VOMITING,COUGHING Nursing Triage Note: AMBULATED TO ROOM 05 WITH COMPLAINTS OF SUDDEN ONSET OF FEELING WEAK, COUGH, VOMITIED X2, AND SOME CHEST PAIN. PT STATS SHE HURTS ALL OVER. Nursing Sepsis Screen: No Definite Risk Source of Information: Patient Exam Limitations: No Limitations History of Present Illness Date Seen by Provider: Aug 06, 2017 Time Seen by Provider: 15:24 Initial Comments To ER with reports of feeling weak, productive cough, vomiting 2, chest pain earlier today. She is a heart patient of Dr. Hughes, gave her nitroglycerin. She still feels poorly all over. Febrile at home. reports that she is a "bad diabetic". Timing/Duration: 1-2 Days Severity: Moderate Associated Systoms: Cough, Malaise, Nausea/Vomiting Allergies and Home Medications Allergies Coded Allergies: Fish Containing Products (Unverified Allergy, Unknown, 05/17/15) FROM UNCODED ALLERGIES ketoprofen (Verified Allergy, Unknown, 03/01/08) mushroom (Unverified Allergy, Unknown, 05/17/15) FROM UNCODED ALLERGIES Home Medications Amlodipine Besylate 10 Mg Tablet, 10 MG PO DAILY, #30 Ref 4 Prescribed by: FABY HUGHES on 03/06/17 112 Aspirin 81 Mg Tablet.dr, 81 MG PO DAILY, (Reported) Atorvastatin Calcium 40 Mg Tablet, 40 MG PO HS, #30 Ref 4 Prescribed by: FABY HUGHES on 03/06/17 112 Clopidogrel Bisulfate 75 Mg Tablet, 75 MG PO DAILY, #30 Ref 4 Prescribed by: FABY HUGHES on 03/06/17 112 Ibuprofen 200 Mg Tablet, 400 MG PO Q6H PRN for PAIN-MILD, (Reported) Insulin Aspart 100 Unit/1 Ml Susp, 20 UNITS SQ AC, (Reported) Insulin Detemir 100 Unit/1 Ml Insuln.pen, 80 UNITS SQ BID, (Reported) Lisinopril 20 Mg Tablet, 40 MG PO DAILY@0900, #30 Ref 4 Prescribed by: FABY HUGHES on 03/06/17 112 Nitroglycerin 0.4 Mg Tab.subl, 0.4 MG SL PRN PRN for CHEST PAIN, #60 Ref 4 Prescribed by: FABY HUGHES on 03/06/17 112 Constitutional: see HPI, malaise, weakness EENTM: see HPI Respiratory: see HPI, cough Genitourinary: no symptoms reported Musculoskeletal: no symptoms reported Skin: no symptoms reported Past Yqodbdi-[id number]-Zqgsxe Hx Patient Social History Alcohol Use: Denies Use Recreational Drug Use: Yes (POT) Smoking Status: Former Smoker Type Used: Cigarettes Former Smoker, Quit: Jul 13, 2000 2nd Hand Smoke Exposure: Yes Recent Foreign Travel: No Contact w/Someone Who Travel: No Recent Infectious Disease Expo: No Recent Hopitalizations: Yes (06/2016--CAD/STENT ) Immunizations Up To Date Tetanus Booster (TDap): Less than 5yrs PED Vaccines UTD: No Date of Pneumonia Vaccine: May 11, 2015 Date of Influenza Vaccine: Apr 12, 2016 Seasonal Allergies Seasonal Allergies: No Surgeries History of Surgeries: Yes (TUBAL LIGATION,GALLBLADDER REMOVED,TONSILECTOMY, CARPAL TUNNEL SURGERY, ) Surgeries: Cardiac, Coronary Stent, Gallbladder, Orthopedic, Tonsillectomy, 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 Respiratory History of Respiratory Disorde: Yes Respiratory Disorders: Chronic Bronchitis, COPD Currently Using CPAP: No Currently Using BIPAP: No Cardiovascular History of Cardiac Disorders: Yes (MULTIPLE STENTS) Cardiac Disorders: Coronary Artery Disease, Heart Attack, High Cholesterol, Hypertension Neurological History of Neurological Disord: Yes (MILD SPEECH IMPAIRMENT) Neurological Disorders: Neuropathy, Stroke, TIA 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 System Hx 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 Disorders: No Sexually Transmitted Disease: No HIV/AIDS: No Female 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 Disorders: Denies 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 Genitourinary History of Genitourinary Disor: No Gastrointestinal History of Gastrointestinal Di: Yes Gastrointestinal Disorders: Gastroesophageal Reflux, Hemorrhoids, Ulcer Musculoskeletal History of Musculoskeletal Dis: Yes (BILATERAL CARPAL TUNNEL, RIGHT KNEE SCOPE X 2) Musculoskeletal Disorders: Arthritis Endocrine History of Endocrine Disorders: Yes Endocrine Disorders: Diabetes, Insulin dep HEENT History of HEENT Disorders: No Cancer History of Cancer: Yes (S/P SURGERY ONLY) Cancer: Cervical Did You Recieve Any Treatments: No Psychosocial History of Psychiatric Problem: Yes Behavioral Health Disorders: Anxiety Integumentary History of Skin or Integumenta: No Blood Transfusions History of Blood Disorders: No Family Medical History Significant Family History: Heart Disease, Hypertension Family Medial History: Alcoholism Arthritis Asthma Cardiovascular disease Cataracts Colon cancer Completed stroke Coronary thrombosis Diabetes mellitus Gastroenteritis Glaucoma Headache disorder Hypertension Kidney disease Psychosocial problem Respiratory disorder Seizure disorder Severe allergy Thyroid disease Visual disorder Physical Exam Vital Signs Vital Sign - Last 12Hours 1/25/18 15:04 Temp 97.5 Pulse 100 Resp 18 B/P (MAP) 133/80 (97) Pulse Ox 95 O2 Delivery Room Air Capillary Refill : Less Than 3 Seconds General Appearance: No Apparent Distress, WD/WN Eyes: Bilateral Eye Normal Inspection, Bilateral Eye PERRL, Bilateral Eye EOMI HEENT: PERRL/EOMI, TMs Normal, Normal ENT Inspection Neck: Full Range of Motion, Normal Inspection Respiratory: No Accessory Muscle Use, No Respiratory Distress Cardiovascular: Regular Rate, Rhythm, Normal Peripheral Pulses Extremity: Normal Capillary Refill, Normal Inspection Neurologic/Psychiatric: Alert, Oriented x3, No Motor/Sensory Deficits Skin: Normal Color, Warm/Dry Progress/Results/Core Measures Suspected Sepsis Recent Fever Within 48 Hours: No Infection Criteria Present: Suspected New Infection New/Unexplained Altered Menta: No Sepsis Screen: No Definite Risk Sepsis Diagnosis: SIRS Temperature:97.5 Pulse: 100 Respiratory Rate: 18 Laboratory Tests 08/06/17 15:31: White Blood Count 9.9 Blood Pressure 133 /80 Mean: 97 Laboratory Tests 08/06/17 15:31: Creatinine 1.08, Platelet Count 169, Total Bilirubin 0.4 Results/Orders Lab Results Laboratory Tests Test 08/06/17 15:31 08/06/17 16:20 Range/Units White Blood Count 9.9 4.3-11.0 10^3/uL Red Blood Count 4.59 4.35-5.85 10^6/uL Hemoglobin 13.6 11.5-16.0 G/DL Hematocrit 39 35-52 % Mean Corpuscular Volume 85 80-99 FL Mean Corpuscular Hemoglobin 30 25-34 PG Mean Corpuscular Hemoglobin Concent 35 32-36 G/DL Red Cell Distribution Width 12.5 10.0-14.5 % Platelet Count 169 130-400 10^3/uL Mean Platelet Volume 12.4 H 7.4-10.4 FL Neutrophils (%) (Auto) 62 42-75 % Lymphocytes (%) (Auto) 32 12-44 % Monocytes (%) (Auto) 4 0-12 % Eosinophils (%) (Auto) 1 0-10 % Basophils (%) (Auto) 0 0-10 % Neutrophils # (Auto) 6.1 1.8-7.8 X 10^3 Lymphocytes # (Auto) 3.2 1.0-4.0 X 10^3 Monocytes # (Auto) 0.4 0.0-1.0 X 10^3 Eosinophils # (Auto) 0.1 0.0-0.3 10^3/uL Basophils # (Auto) 0.0 0.0-0.1 10^3/uL Sodium Level 134 L 135-145 MMOL/L Potassium Level 4.1 3.6-5.0 MMOL/L Chloride Level 99 98-107 MMOL/L Carbon Dioxide Level 22 21-32 MMOL/L Anion Gap 13 5-14 MMOL/L Blood Urea Nitrogen 20 H 7-18 MG/DL Creatinine 1.08 0.60-1.30 MG/DL Estimat Glomerular Filtration Rate 51 BUN/Creatinine Ratio 19 Glucose Level 538 *H 70-105 MG/DL Calcium Level 9.2 8.5-10.1 MG/DL Total Bilirubin 0.4 0.1-1.0 MG/DL Aspartate Amino Transf (AST/SGOT) 11 5-34 U/L Alanine Aminotransferase (ALT/SGPT) 12 0-55 U/L Alkaline Phosphatase 71 40-136 U/L Troponin I < 0.30 <0.30 NG/ML Total Protein 7.2 6.4-8.2 GM/DL Albumin 3.6 3.2-4.5 GM/DL Urine Color YELLOW Urine Clarity SLIGHTLY CLOUDY Urine pH 5 5-9 Urine Specific [place] 1.010 L 1.016-1.022 Urine Protein NEGATIVE NEGATIVE Urine Glucose (UA) 4+ H NEGATIVE Urine Ketones NEGATIVE NEGATIVE Urine Nitrite NEGATIVE NEGATIVE Urine Bilirubin NEGATIVE NEGATIVE Urine Urobilinogen NORMAL NORMAL MG/DL Urine Leukocyte Esterase 3+ H NEGATIVE Urine RBC (Auto) 1+ H NEGATIVE Urine RBC 2-5 H /HPF Urine WBC 50-100 H /HPF Urine Squamous Epithelial Cells 10-25 H /HPF Urine Crystals NONE /LPF Urine Bacteria MODERATE H /HPF Urine Casts NONE /LPF Urine Mucus NEGATIVE /LPF Urine Yeast FEW H /HPF Urine Culture Indicated YES Micro Results Microbiology 08/06/17 Influenza Types A,B Antigen (MAYE) - Final, Complete My Orders Orders - LAURA ALBA APRN Influenza A And B Antigens (08/06/17 15:18) Chest Pa/Lat (2 View) (08/06/17 15:18) Ekg Tracing (08/06/17 15:18) Cbc With Automated Diff (08/06/17 15:23) Comprehensive Metabolic Panel (08/06/17 15:23) Troponin I (08/06/17 15:23) Ns Iv 1000 Ml (Sodium Chloride 0.9%) (08/06/17 16:15) Insulin (Regular) Human (Humulin R (Per (08/06/17 16:15) Ondansetron Injection (Zofran Injectio (08/06/17 16:15) Ua Culture If Indicated (08/06/17 16:13) Urine Culture (08/06/17 16:20) Ceftriaxone Injection (Rocephin Injectio (08/06/17 17:15) Accucheck Stat ONCE (08/06/17 17:01) Medications Given in ED Current Medications Medications Dose Ordered Sig/Kelli Route Start Time Stop Time Status Last Admin Dose Admin Insulin Human Regular 10 unit ONCE ONCE IV 08/06/17 16:15 08/06/17 16:16 DC 08/06/17 16:22 10 UNIT Ondansetron HCl 4 mg ONCE ONCE IVP 08/06/17 16:15 08/06/17 16:16 DC 08/06/17 16:21 4 MG Vital Signs/I&O Vital Sign - Last 12Hours 08/06/17 15:04 Temp 97.5 Pulse 100 Resp 18 B/P (MAP) 133/80 (97) Pulse Ox 95 O2 Delivery Room Air Capillary Refill : Less Than 3 Seconds Blood Pressure Mean: 97 Departure Impression Impression: Primary Impression: Hyperglycemia Additional Impression: Urinary tract infection Disposition: HOME, SELF-CARE Condition: Stable Departure-Patient Inst. Decision time for Depature: 17:05 Referrals: PATRICIO REAVES DO (PCP) Primary Care Physician YUSUF SHARP (Family) Primary Care Physician Patient Instructions: Urinary Tract Infections in Adults Add. Discharge Instructions: 1. Drink plenty of fluids 2. Take your insulin as directed 3. Antibiotics as directed 4. Nausea medication as needed 4. Return to ER for any pain, uncontrollable nausea that prevents you from taking her antibiotics or blood sugar that stays high above 400. Follow-up with your doctor on Thursday for recheck. All discharge instructions reviewed with patient and/or family. Voiced understanding. Scripts Ondansetron (Zofran Odt) 8 Mg Tab.rapdis 8 MG PO Q6H Y for NAUSEA/VOMITING-1ST LINE, #10 TAB Prov: LAURA ALBA APRN 08/06/17 Sulfamethoxazole/Trimethoprim (Bactrim Ds Tablet) 1 Each Tablet 1 EACH PO BID, #10 TAB Prov: LAURA ALBA APRN 08/06/17 LAURA ALBA APRN Aug 06, 2017 15:25
[2017-08-06 15:36] LABS: BASOPHILS % (AUTO) 0 % (0-10); EOSINOPHILS # (AUTO) 0.1 10^3/uL (0.0-0.3); EOSINOPHILS % (AUTO) 1 % (0-10); HEMATOCRIT 39 % (35-52); HEMOGLOBIN 13.6 G/DL (11.5-16.0); LYMPHOCYTES # (AUTO) 3.2 X 10^3 (1.0-4.0); LYMPHOCYTES % (AUTO) 32 % (12-44); MEAN CORPUSCULAR HEMOGLOBIN 30 PG (25-34); MEAN CORPUSCULAR HGB CONC 35 G/DL (32-36); MEAN CORPUSCULAR VOLUME 85 FL (80-99); MEAN PLATELET VOLUME 12.4 FL (7.4-10.4); MONOCYTES # (AUTO) 0.4 X 10^3 (0.0-1.0); MONOCYTES % (AUTO) 4 % (0-12); NEUTROPHILS # (AUTO) 6.1 X 10^3 (1.8-7.8); NEUTROPHILS % (AUTO) 62 % (42-75); PLATELET COUNT 169 10^3/uL (130-400); RED BLOOD COUNT 4.59 10^6/uL (4.35-5.85); RED CELL DISTRIBUTION WIDTH 12.5 % (10.0-14.5); WHITE BLOOD COUNT 9.9 10^3/uL (4.3-11.0)
--- NOTE | 2017-08-06 15:49 | Diagnostic Imaging Report ---
INDICATION: Cough. COMPARISON: 03/04/2017. EXAMINATION: Frontal and lateral views of the chest were obtained. FINDINGS: Normal heart size and pulmonary vascularity. The lungs are clear. There are no signs of infiltrate, pleural effusions or pneumothoraces. The visualized osseous structures show no acute abnormalities. IMPRESSION: No acute process. No signs of infiltrates, effusions or pneumothoraces. Dictated by: Dictated on workstation # [id number]
[2017-08-06 16:10] LABS: ALANINE AMINOTRANSFERASE 12 U/L (0-55); ALBUMIN 3.6 GM/DL (3.2-4.5); ALKALINE PHOSPHATASE 71 U/L (40-136); BILIRUBIN,TOTAL 0.4 MG/DL (0.1-1.0); BUN/CREATININE RATIO 19; CALCIUM 9.2 MG/DL (8.5-10.1); CARBON DIOXIDE 22 MMOL/L (21-32); CHLORIDE 99 MMOL/L (98-107); CREATININE SERUM 1.08 MG/DL (0.60-1.30); GFR ESTIMATED 51; POTASSIUM 4.1 MMOL/L (3.6-5.0); SODIUM 134 MMOL/L (135-145); TOTAL PROTEIN 7.2 GM/DL (6.4-8.2)
[2017-08-06 16:11] LABS: GLUCOSE 538 MG/DL (70-105)
[2017-08-06] MEDS ORDERED: ONDANSETRON 4 MG/2 ML (SDV) Z0FRAN IVP ONE (16:15)
[2017-08-06] MEDS ORDERED: inSUlin (REGULAR) HUMAN 1 UNIT/0.01 ML (CHARGE PER UNIT) IV ONE ×2 (16:15→17:30)
[2017-08-06] MEDS ORDERED: NS IV 1000 ML 1,000 ML IV SCH (16:15)
[2017-08-06 16:25] LABS: BILIRUBIN,URINE NEGATIVE (NEGATIVE); CLARITY,URINE SLIGHTLY CLOUDY; COLOR,URINE YELLOW; GLUCOSE, URINE (UA) 4+ (NEGATIVE); KETONES,URINE NEGATIVE (NEGATIVE); LEUKOCYTE ESTERASE ,URINE 3+ (NEGATIVE); NITRITE,URINE NEGATIVE (NEGATIVE); PH,URINE 5 (5-9); PROTEIN,URINE NEGATIVE (NEGATIVE); UROBILINOGEN,URINE NORMAL (NORMAL)
[2017-08-06 16:33] LABS: BACTERIA,URINE MODERATE /HPF; WBC,URINE 50-100 /HPF; YEAST,URINE FEW /HPF
[2017-08-06] MEDS ORDERED: ONDA8TAB9 PO (17:07)
[2017-08-06] MEDS ORDERED: SULF1TAB35 PO (17:07)
[2017-08-06] MEDS ORDERED: cefTRIAXone INJECTION 1,000 MG in D5W 50 ML IVPB SOLUTION 50 ML IV ONE (17:15)
== END 2017-08-06 18:01 | disposition home or self-care (01) ==
LOC: EDUNIT# 15:00 → ER 15:02
DX: E11.65 Type 2 diabetes mellitus with hyperglycemia (principal); N39.0 Urinary tract infection, site not specified; J44.9 Chronic obstructive pulmonary disease, unspecified; I25.10 Atherosclerotic heart disease of native coronary artery without angina pectoris; I25.2 Old myocardial infarction; E78.00 Pure hypercholesterolemia, unspecified; I10 Essential (primary) hypertension; F41.9 Anxiety disorder, unspecified; K21.9 Gastro-esophageal reflux disease without esophagitis; F12.10 Cannabis abuse, uncomplicated; Z95.5 Presence of coronary angioplasty implant and graft; Z98.51 Tubal ligation status; Z85.41 Personal history of malignant neoplasm of cervix uteri; Z82.49 Family history of ischemic heart disease and other diseases of the circulatory system; Z80.0 Family history of malignant neoplasm of digestive organs; Z87.59 Personal history of other complications of pregnancy, childbirth and the puerperium; Z90.89 Acquired absence of other organs; Z79.82 Long term (current) use of aspirin; Z79.4 Long term (current) use of insulin; Z87.891 Personal history of nicotine dependence; Z86.73 Personal history of transient ischemic attack (TIA), and cerebral infarction without residual deficits; Z87.19 Personal history of other diseases of the digestive system
CPT/HCPCS: 36415; 71046; 80053; 81000; 82962; 84484; 85025; 87088; 87804; 93005

== ENCOUNTER 2017-12-09 00:53 | Observation (INO) | payer MEDICARE ==
[2017-12-09] VITALS (8 sets, daily range): BP systolic 114–151; BP diastolic 55–86
[~2017-12-09] VITALS: Ht 157.5 cm; Wt 72.1 kg
[~2017-12-09 00:53] MED LIST changes: +CALC300T4 PO; +HYDR-34 PO; -HYDR-3816 PO; +MAG355OR16 PO; -METF1000 PO; +METF10002 PO; +METO100T6 PO; +ONDA8TAB9 PO; +POLY17PO6 PO
--- OUTSIDE RECORDS SUMMARY | 2017-12-09 01:00 | XMS REPORT | Clinical Summary ---
Author Author [facility] Organization [facility] Address Unknown Phone Unavailable Care Team Providers Care Cleaner Furniture Name Role Phone Ashley Banegas MD PCP Source Comments Some departments are not documenting in the electronic medical record. If you do not see the information that you expected, contact Release of Information in the Health Information Management department at [phone] for further assistance in locating additional records.[facility] Allergies Active Allergy Reactions Severity Noted Date Comments Fish Containing Products HIVES, EDEMA Medium 11/12/2017 Ketoprofen EDEMA Medium 11/12/2017 Tongue swelling Mushroom SEE COMMENTS Low 11/12/2017 Doesn't agree with her Penicillins STOMACH UPSET Low 12/01/2017 Current Medications Prescription Sig. Disp. Refills Start End Date Status Date atorvastatin (LIPITOR) 40 Take 40 mg by mouth Active mg tablet daily. calcium carbonate (TUMS) Chew 500 mg by mouth as Active 500 mg (200 mg elemental Needed. calcium) chewable tablet aspirin EC 81 mg tablet Take 81 mg by mouth Active daily. Take with food. nitroglycerin (NITROSTAT) Place 0.4 mg under tongue Active 0.4 mg tablet every 5 minutes as needed for Chest Pain. Max of 3 tablets, call 911. Cholecalciferol (Vitamin Take 1 capsule by mouth Active D3) (VITAMIN D) 1,000 daily. unit cap traMADol (ULTRAM) 50 mg Take 50 mg by mouth every Active tablet 6 hours as needed for Pain. spironolactone Take 0.5 tablets by mouth 15 tablet 5 11/26/19 Active (ALDACTONE) 25 mg daily. Take with food. 18 tabletIndications: Coronary artery disease involving [place] coronary artery of [place] heart with unstable angina pectoris (HCC) evolocumab (REPATHA) 140 Inject 140 mg under the Active mg/mL injectable PEN skin every 14 days. senna/docusate Take 2 tablets by mouth 30 tablet 0 12/09/19 Active (SENOKOT-S) 8.6/50 mg twice daily. 18 tablet oxyCODONE/acetaminophen Take 1-2 tablets by mouth 30 tablet 0 Active (PERCOCET) 5/325 mg every 6 hours as needed 18 tablet for Pain Earliest Fill Date: 12/08/17 lisinopril (PRINIVIL; Take 1 tablet by mouth 90 tablet 3 12/09/19 Active ZESTRIL) 5 mg tablet daily. 18 metoprolol XL (TOPROL XL) Take 1 tablet by mouth 90 tablet 3 12/10/19 Active 25 mg extended release daily. 18 tablet insulin detemir(+) Inject 26 Units under the 10 mL 12 12/09/19 Active (LEVEMIR) 100 unit/mL skin at bedtime daily. 18 solnIndications: Coronary artery disease involving [place] coronary artery of [place] heart with unstable angina pectoris (HCC) insulin aspart U-100 Inject 0-14 Units under 45 mL 3 12/09/19 Active (NOVOLOG FLEXPEN) 100 the skin three times 18 unit/mL injection daily with meals. Inject PENIndications: Coronary 8 units under the skin artery disease involving three times daily with [place] coronary artery of meals. Plus 0-14 units [place] heart with on sliding scale. unstable angina pectoris (HCC) metFORMIN-ER(+) Take 1 tablet by mouth 180 tablet 3 12/09/19 Active (FORTAMET) 1,000 mg twice daily with meals. 18 extended release tablet clopiDOGrel (PLAVIX) 75 Take 75 mg by mouth 11/26/19 Discontin mg tablet daily. 18 ued insulin lispro (HUMALOG Inject 60 Units under the 11/25/19 Discontin PEN SC) skin before meals and at 18 ued bedtime. isosorbide mononitrate SR Take 30 mg by mouth every 12/09/19 Discontin (IMDUR) 30 mg tablet morning. 18 ued furosemide (LASIX) 40 mg Take 40 mg by mouth every 11/26/19 Discontin tablet morning. 18 ued insulin detemir(+) Inject 88 Units under the 11/26/19 Discontin (LEVEMIR) 100 unit/mL skin twice daily before 18 ued soln meals. amLODIPine (NORVASC) 10 Take 10 mg by mouth 12/09/19 Discontin mg tablet daily. 18 ued metoprolol XL (TOPROL XL) Take 100 mg by mouth 12/09/19 Discontin 100 mg extended release daily. 18 ued tablet lisinopril (PRINIVIL; Take 20 mg by mouth 12/09/19 Discontin ZESTRIL) 20 mg tablet daily. 18 ued metFORMIN (GLUCOPHAGE) Take 1,000 mg by mouth 11/26/19 Discontin 1,000 mg tablet twice daily with meals. 18 ued insulin aspart U-100 Inject 75 Units under the 11/26/19 Discontin (NOVOLOG) 100 unit/mL skin three times daily 18 ued injection with meals. amoxicillin (AMOXIL) 500 Take 500 mg by mouth 11/19/19 11/26/19 Discontin mg capsule every 12 hours. 18 18 ued insulin aspart U-100 Inject 0-14 Units under 45 mL 3 11/26/19 Discontin (NOVOLOG FLEXPEN) 100 the skin before meals and 18 18 ued unit/mL injection at bedtime. PENIndications: Coronary artery disease involving [place] coronary artery of [place] heart with unstable angina pectoris (HCC) insulin aspart U-100 Inject 10 Units under the 45 mL 3 11/26/19 Discontin (NOVOLOG FLEXPEN) 100 skin three times daily 18 18 ued unit/mL injection with meals. PENIndications: Coronary artery disease involving [place] coronary artery of [place] heart with unstable angina pectoris (HCC) insulin detemir(+) Inject 35 Units under the 10 mL 12 11/26/1912/08 Discontin (LEVEMIR) 100 unit/mL skin at bedtime daily. 18 18 ued solnIndications: Coronary artery disease involving [place] coronary artery of [place] heart with unstable angina pectoris (HCC) insulin aspart U-100 Inject 0-14 Units under 45 mL 3 11/26/19 Discontin (NOVOLOG FLEXPEN) 100 the skin three times 18 18 ued unit/mL injection daily with meals. PENIndications: Coronary artery disease involving [place] coronary artery of [place] heart with unstable angina pectoris (HCC) Active Problems Problem Noted Date Acute on chronic combined systolic and diastolic heart failure, NYHA class 12/02/2017 2 (HCC) On mechanically assisted ventilation ([facility]) 12/02/2017 CAD (coronary artery disease) 11/23/2017 Overview: 11/24/17-cardiac catheterization revealed an occluded mid left anterior descending artery with faint [id number] collaterals, 90% mid second obtuse marginal stenosis with a 70% ostial circumflex stenosis and 95% proximal posterior lateral stenosis. Bilateral carotid artery disease ([facility]) 11/17/2017 Overview: 05/04/17 - Carotid U/S: mild 1-39% stenosis, nonobstructive disease bilaterally. Coronary artery disease involving [place] coronary artery of [place] heart 02/2018 with unstable angina pectoris ([facility]) Overview: 03/05/17 - C: Total occlusion of the mid LAD, balloon angioplasty using 2 different sized balloons. No reestablishment of flow. Appears the artery is diffusely diseased & occluded. Proximal portion has severe disease - balloon angioplasty with slight improvement. Severe disease at mid and distal circumflex - fairly small artery. Patent stent in large dominant RCA. Normal LV, EF 60%, normal LVEDP. 06/16/16 - [facility]: Severe in-stent restenosis in prox and mid LAD, resistant lesion to balloon angioplasty, used NC Quantum 3.5 x 20 mm multiple inflations and cutting balloon 3.5 x 10 mm with excellent results. Patent stent in prox RCA with severe subtotal occlusion at the distal RCA. Successful stenting using 2.75 x 15 mm Xience Alpine stent, expanded to 2.78 with excellent results. 60% ostial circumflex stenosis, patent stent in the mid circumflex, severe 90% stenosis at distal circumflex, fairly small artery. Normal LVEDP. 06/2015 [facility]: 2.5 x 18 mm Resolute Integrity stent to mid circumflex, prox lesion is 40% stenosed, distal lesion 80%. Patent multiple stents in prox, mid, and distal LAD w/ mild in-stent restenosis. Patent stent in RCA w/ mild disease in distal RCA. 05/2015 [facility]: 3.5 x 12 mm & 2.75 x 24 mm Promus Premier overlapping stents to mid RCA. Patent stents in the LAD. Severe stenosis at distal LAD, 70% prox circumflex and 70-80% mid to distal circ/OM branch. [facility]: 2.5 x 24 mm and 2.5 x 20 mm Promusto distal and proximal LAD, 50% prox circumflex, 70-80% mid to distal circumflex involving the proximal portion of OM1, 50-60% mid RCA, LV anterior wall hypokinetic. EF 40%. PAD (peripheral artery disease) ([facility]) 11/17/2017 Essential hypertension 11/17/2017 Mixed hyperlipidemia 11/17/2017 History of tobacco abuse 11/17/2017 Type 2 diabetes mellitus with complication, with long-term current use of insulin ([facility]) Tooth decay 11/16/2017 Overview: Added automatically from request for surgery [id number] Encounters Date Type Specialty Care Team Description 12/08/2017 Pharmacy Visit 12/04/2017 Pharmacy Visit 12/02/2017 [facility] Jeimy Yi MD Coronary artery disease - Encounter involving [place] coronary 12/08/2017 artery of [place] heart with unstable angina pectoris (HCC) 12/02/2017 Procedure Pass 12/02/2017 Surgery Jeimy Yi MD BYPASS GRAFT CORONARY ARTERY x3, LEFT INTERNAL MAMMARY ARTERY HARVEST, LEFT ENDOSCOPIC SAPHENOUS VEIN HARVEST 12/01/2017 PAC Office Anesthesiology Jeimy Yi MD Coronary artery disease Visit involving [place] heart, angina presence unspecified, unspecified vessel or lesion type 12/01/2017 [facility] Cardiology Jeimy Yi MD Arrived Encounter 12/01/2017 Anesthesia Will Abrams MD Event 11/26/2017 Pre-Admit Anesthesiology Jeimy Yi MD Coronary artery disease Orders Only involving [place] heart, angina presence unspecified, unspecified vessel or lesion type (Primary Dx) 11/24/2017 Pharmacy Visit 11/24/2017 Anesthesia Meghan Iniguez MD Event 11/24/2017 Procedure Pass 11/24/2017 Surgery Dena Gayle DDS EXTRACTION TEETH #6, 7, 8, 9, 10, 11, 14, 22-27 11/23/2017 [facility] Cardiology Italo Russo PA-C Encounter 11/23/2017 [facility] Vinod Cortes MD Coronary artery disease - Encounter involving [place] coronary 11/25/2017 artery of [place] heart with unstable angina pectoris (HCC) 11/23/2017 Office Visit Cardiology Vinod Cortes MD New Patient; History And Physical (same day heart cath) 11/23/2017 Procedure Pass 11/23/2017 Prep for Case Dena Gayle DDS Tooth decay (Primary Dx) 11/23/2017 Procedure Pass Cardiology 11/23/2017 Surgery Cardiology Vinod Cortes MD PERCUTANEOUS CORONARY ATHERECTOMY/ STENT PLACEMENT/ ANGIOPLASTY OF CHRONIC TOTAL OCCLUSION OF LEFT ANTERIOR DESCENDING ARTERY 11/18/2017 Documentation Cardiology Mamie Woodard RN Labs Only (CBC/ BMP ) 11/16/2017 Documentation Cardiology Horace Correa RN Precertification (Medicare) 11/12/2017 Telephone Cardiology Mamie Woodard RN Procedure (BRANCH LENDING OFFICER - ref by Dr. Hughes) from Last 3 Months Family History Medical History Relation Name Comments Heart Disease Father Heart Disease Mother Hypertension Mother Kidney Cancer Mother Relation Name Status Comments Father Mother Social History Tobacco Use Types Packs/Day Years Used Date Former Smoker 1 45 Quit: 01/23/2017 Smokeless Tobacco: Never Used Alcohol Use Drinks/Week oz/Week Comments No Sex Assigned at Date Recorded Not on file Last Filed Vital Signs Vital Sign Reading Time Taken Blood Pressure 128/69 12/08/2017 11:19 AM CDT Pulse 84 12/08/2017 11:19 AM CDT Temperature 36.5 C (97.7 F) 12/08/2017 11:19 AM CDT Respiratory Rate - - Oxygen Saturation 96% 12/08/2017 11:19 AM CDT Inhaled Oxygen - - Concentration Weight 73.4 kg (161 lb 12.8 oz) 12/08/2017 4:00 AM CDT Height 157.5 cm (5' 2.01") 12/02/2017 8:00 PM CDT Body Mass Index 29.59 12/08/2017 4:00 AM CDT Plan of Treatment Health Maintenance Due Date Last Done Comments HEPATITIS C SCREENING 1955 PHYSICAL (COMPREHENSIVE) 1962 EXAM PERTUSSIS VACCINE 1966 HIV SCREENING 1970 TETANUS VACCINE 1972 DILATED EYE EXAM 1973 FOOT EXAM 1973 PNEUMONIA VACCINE (DM) 1973 CERVICAL CANCER SCREENING 1985 BREAST CANCER SCREENING 1995 COLORECTAL CANCER 2005 SCREENING SHINGLES VACCINE 2015 INFLUENZA VACCINE 04/12/2018 HBA1C 05/26/2018 11/23/2017 Implants Implanted Type Area Supportive 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 ANESTHESIA Routine 12/02/2017 TRANSEESOPHAGEAL 12:53 PM CDT ECHOCARDIOGRAM Procedure Note - Candy Strong MD - 12/02/2017 12:53 PM CDT Anesthesi a Procedure: Transesoph ageal Echocardio gram AYALA Date/Time: 12/02/2017 12:54 PM Associate d procedure: CABG Preprocedu re checklist performed: 2 patient identifier s, risks & benefits discussed, patient evaluated, timeout performed, consent obtained and patient being monitored Staff Anesthesio logist: CANDY STRONG Surgeon: JEIMY YI Performed personally Indicatio n for AYALA: assessment of ascending aorta, assessment of surgical repair, defect repair evaluation , hemodynami c monitoring , ventricula r function, volume assessment , confirmati on of pre-proced ure diagnosis and valvular assessment CPT codes: 74109 - AYALA 2D imaging (w or w/o M-mode) including probe placement, image acquisitio n, interpreta tion & report, 91712 - PWD and/or CWD f/u or limited study and 48898 - Color flow velocity mapping Patient location: OR Intubated: yes Bite block: no Heart visualized : yes Insertion: easy Probe type: multiplane Modalities : 2D, color flow mapping, pulse wave Doppler and continuous wave Doppler Echocardio graphic and Doppler Measuremen ts Ventricul ar Findings Right Ventricle RV cavity size: normal RV hypertroph y: no RV thrombus: no RV global function: normal Left Ventricle LV cavity size: normal LV hypertroph y: no LV thrombus: no LV global function: mildly impaired LV ejection fraction: 45% Ventricula r Wall Motion Four Chamber View Basal anterolate ral: normal Basal inferosept al: hypokineti c Mid anterolate ral: normal Mid inferosept al: hypokineti c Apical lateral: hypokineti c Apical septal: normal Two Chamber View Basal anterior: normal Basal inferior: hypokineti c Mid anterior: normal Mid inferior: hypokineti c Apical anterior: normal Apical inferior: hypokineti c Long Hood View Basal anterosept al: normal Basal inferolate ral: hypokineti c Mid anterosept al: normal Mid inferolate ral: normal Apical lateral: hypokineti c Apical septal: normal [place]: hypokineti c Mid Short Hood View Mid anterosept al: normal Mid anterior: normal Mid anterolate ral: normal Mid inferolate ral: normal Mid inferior: hypokineti c Mid inferosept al: hypokineti c Valves Aortic Valve Annulus: normal Stenosis: none Regurgitat ion severity: none Leaflet morphology : normal Leaflet motion: normal Mitral Valve Annulus: normal Stenosis: none Regurgitat ion severity: mild Leaflet morphology : normal Leaflet motion: normal Tricuspid Valve Annulus: normal Stenosis: none Regurgitat ion severity: mild Leaflet morphology : normal Leaflet motion: normal Pulmonic Valve Annulus: normal Stenosis: none Regurgitat ion severity: trace regurgitat ion Leaflet morphology : normal Aorta Ascending Aorta Size: normal Dissection : no Plaque thickness: 0-3 mm Plaque mobile: no Sinotubul ar Junction Size: normal Dissection : no Plaque thickness: 0-3 mm Plaque mobile: no Sinus of Valsalva Size: normal Dissection : no Plaque thickness: 0-3 mm Plaque mobile: no Descendin g Thoracic Aorta Size: normal Dissection : no Plaque thickness: 0-3 mm Plaque mobile: no Atria Right Atrium Size: normal and PA catheter SEC (smoke): no Thrombus: no Tumor: no Device: yes Left Atrium Size: normal SEC (smoke): no Thrombus: no Tumor: no Device: no Left atrial appendage size: normal Septa Intra-atri al septal morphology : normal Intra-bekah tricular septal morphology : normal Diastolic Function Diastolic dysfunctio n grade: I Other Findings Pericardiu m: normal Pleural effusion: none Pulmonary arteries: normal Pulmonary venous flow: normal Post Procedure Systolic anterior motion of the mitral valve: no Return to CBT for echo-relat ed diagnosis: no Aorta intact after decannulat ion: yes Post-proce dure LVEF measured: yes; 45% Post-proce dure RV dysfunctio n: none Post-proc edure comments: POST-INTER VENTION FINDINGS (RHYTHM: sinus): The LV systolic function is preserved with no inotropic support. The visually estimated EF is 45%. The inferior wall is less hypokineti c. The inferior septal wall is hypokineti c. The ascending aorta is intact and no dissection is seen following decannulat ion. Otherwise, findings are as above. Performed by: ACNDY STRONG Authorized by: CANDY STRONG ANESTHESIA PULMONARY Routine 12/02/2017 ARTERY CATHETER INSERTION 12:53 PM CDT Procedure Note - Candy Strong MD - 12/02/2017 12:53 PM CDT Anesthesi a Procedure: Pulmonary Artery Catheter PULMONARY ARTERY CATHETER INSERTION Date/Time: 12/02/2017 11:53 AM This note is used in conjunctio n with the CVC Line Insertion note for additional details regarding the insertion of a Pulmonary Artery Catheter: PA Catheter Insertion Procedure Catheter type: standard Insertion depth: 48 cm Events: none Performed by: CANDY STRONG Authorized by: CANDY STRONG ANESTHESIA CENTRAL LINE Routine 12/02/2017 INSERTION 12:52 PM CDT Procedure Note - Candy Strong MD - 12/02/2017 12:52 PM CDT Anesthesi a Procedure: Central Venous Catheter Line CENTRAL LINE INSERTION Date/Time: 12/02/2017 11:52 AM Patient location: OR Indication s: medication s requiring CV access, inadequate peripheral IV access and hemodynami c pressure monitoring Preproced ure checklist performed: 2 patient identifier s, risks & benefits discussed, patient evaluated, timeout performed, consent obtained, patient being monitored and CVC bundle followed (proper hand washing, maximal sterile barrier technique with cap, sterile gown, sterile glove, sterile drape, and skin prep for antisepsis ) CVC Line Insertion Procedure Skin prepped with chlorhexid ine; skin prep agent completely dried prior to procedure. Patient Position: Trendelenb urg Location: internal jugular vein Laterality : right Vein identifica tion: ultrasound guided Confirmati on of venous placement prior to dilation of vein by: ultrasound Ultrasound image captured Number of attempts: 1 Successful placement: yes Patient sedated: yes Sedation given: general Catheter: Catheter type: introducer placed using standard wire through needle technique Catheter size: 9 Fr Procedure Outcome Post procedure: all ports aspirated, dressing applied and line sutured; Dressing: chlorhexid ine impregnate d sponge Placement verificati on: x-ray verificati on pending Events: none Observatio ns: patient tolerated well Performed by: CANDY STRONG Authorized by: CANDY STRONG TELEMETRY STRIPS-SCAN 11/26/2017 Results for this 5:28 PM CDT procedure are in the results section. ECG-SCAN 11/26/2017 Results for this 5:27 PM CDT procedure are in the results section. PROCEDURE RECORD-SCAN 11/26/2017 Results for this 10:42 AM CDT procedure are in the results section. EXTRACTION TEETH #6, 7, 11/24/2017 Tooth decay 8, 9, 10, 11, 14, 22-27 5:00 PM CDT CONSULT IV THERAPY TEAM STAT 11/23/2017 8:47 AM CDT from Last 3 Months Results * POC GLUCOSE (12/08/2017 11:19 AM) Only the most recent of 70 results within the time period is included. Component Value Ref Range Glucose, POC 234 (H) 70 - 100 MG/DL Specimen Performing Laboratory MAIN LAB [address] [place] [address] * CBC (12/07/2017 4:23 AM) Only the most recent of 9 results within the time period is included. Component Value Ref Range White Blood Cells 7.7 4.5 - 11.0 K/UL RBC 3.20 (L) 4.0 - 5.0 M/UL Hemoglobin 9.4 (L) 12.0 - 15.0 GM/DL Hematocrit 27.6 (L) 36 - 45 % MCV 86.4 80 - 100 FL MCH 29.4 26 - 34 PG MCHC 34.0 32.0 - 36.0 G/DL RDW 12.7 11 - 15 % Platelet Count 186 150 - 400 K/UL MPV 9.0 7 - 11 FL Specimen Performing Laboratory Blood MAIN LAB [address] [place] [address] * MAGNESIUM (12/07/2017 4:23 AM) Only the most recent of 8 results within the time period is included. Component Value Ref Range Magnesium 2.0 1.6 - 2.6 mg/dL Specimen Performing Laboratory Blood MAIN [facility] [address] [place] [address] * BASIC METABOLIC PANEL (12/07/2017 4:23 AM) Only the most recent of 9 results within the time period is included. Component Value Ref Range Sodium 134 (L) 137 - 147 MMOL/L Potassium 4.0 3.5 - 5.1 MMOL/L Chloride 99 98 - 110 MMOL/L CO2 27 21 - 30 MMOL/L Anion Gap 8 3 - 12 Glucose 124 (H) 70 - 100 MG/DL Blood Urea Nitrogen 21 7 - 25 MG/DL Creatinine 0.61 0.4 - 1.00 MG/DL Calcium 8.9 8.5 - 10.6 MG/DL eGFR Non >60 >60 mL/min Comment: The eGFR is not validated for use in drug dosing adjustments.Continue to use estimated creatinine clearance per dosing reference text.Please contact the Clinical Pharmacist for questions. eGFR >60 >60 mL/min Comment: The eGFR is not validated for use in drug dosing adjustments.Continue to use estimated creatinine clearance per dosing reference text.Please contact the Clinical Pharmacist for questions. Specimen Performing Laboratory Blood [facility] [address] [place] [address] * CHEST SINGLE VIEW (12/05/2017 7:03 AM) Only the most recent of 4 results within the time period is included. Specimen Performing Laboratory [facility] RAD RESULTS Impressions 1.Unchanged small bilateral pleural effusions and adjacent atelectasis. Finalized by Italo Stevenson M.D. on 12/05/2017 9:58 AM. Dictated by Italo Stevenson M.D. on 12/05/2017 9:57 AM. Narrative CHEST SINGLE VIEW Clinical Indication: Female, 62 years old. Atelectasis Comparison: X-ray December 04, 2017 at 6:37 AM Findings: Single portable upright AP chest x-ray was obtained.The heart is mildly enlarged status post median sternotomy.Small bilateral pleural effusions and adjacent atelectasis have not significantly changed.No pneumothorax is visualized. Procedure Note Interface, Radiant Results - 12/05/2017 10:01 AM CDT CHEST SINGLE VIEW Clinical Indication: Female, 62 years old. Atelectasis Comparison: X-ray December 04, 2017 at 6:37 AM Findings: Single portable upright AP chest x-ray was obtained. The heart is mildly enlarged status post median sternotomy. Small bilateral pleural effusions and adjacent atelectasis have not significantly changed. No pneumothorax is visualized. IMPRESSION 1. Unchanged small bilateral pleural effusions and adjacent atelectasis. Finalized by Italo Stevenson M.D. on 12/05/2017 9:58 AM. Dictated by Italo Stevenson M.D. on 12/05/2017 9:57 AM. * O2 SATURATION, MIXED VENOUS (12/03/2017 4:00 AM) Only the most recent of 2 results within the time period is included. Component Value Ref Range I1Mos-Evjal Venous 61.3 % Specimen Performing Laboratory Blood [facility] [address] [place] [id number] * POTASSIUM (12/03/2017 2:00 AM) Only the most recent of 2 results within the time period is included. Component Value Ref Range Potassium 4.0 3.5 - 5.1 MMOL/L Specimen Performing Laboratory Blood [facility] [address] [place] [id number] * BLOOD GASES, ARTERIAL (12/03/2017 2:00 AM) Component Value Ref Range pH-Arterial 7.36 7.35 - 7.45 pCO2-Arterial 39 35 - 45 MMHG pO2-Arterial 137 (H) 80 - 100 MMHG Base Deficit-Arterial 3.1 MMOL/L O2 Sat-Arterial 98.7 95 - 99 % Wmkqurcoary-JBX-Bjr 21.8 21 - 28 MMOL/L Specimen Performing Laboratory Blood, arterial - Blood MAIN LAB [address] [place] [id number] * POC BLOOD GAS ARTERIAL (12/03/2017 12:52 AM) Only the most recent of 9 results within the time period is included. Component Value Ref Range PH-ART-POC 7.39 7.35 - 7.45 PEE0-NXT-FTL 37 35 - 45 MMHG PO2-ART-POC 150 (H) 80 - 100 MMHG Base Def-ART-POC 3.0 MMOL/L O2 Sat-ART-POC 99.0 95 - 99 % Wftjneojgfh-UZQ-OEC 22.2 21 - 28 MMOL/L Specimen Performing Laboratory MA[facility] [address] [place] [id number] * POC SODIUM (12/03/2017 12:52 AM) Only the most recent of 8 results within the time period is included. Component Value Ref Range Sodium-POC 145 137 - 147 MMOL/L Specimen Performing Laboratory MAIN [facility] [address] [place] [id number] * POC POTASSIUM (12/03/2017 12:52 AM) Only the most recent of 8 results within the time period is included. Component Value Ref Range Potassium-POC 4.0 3.5 - 5.1 MMOL/L Specimen Performing Laboratory [facility] [address] [place] [id number] * POC IONIZED CALCIUM (12/03/2017 12:52 AM) Only the most recent of 8 results within the time period is included. Component Value Ref Range Ionized Calcium-POC 1.16 1.0 - 1.3 MMOL/L Specimen Performing Laboratory [facility] [address] [place] [id number] * POC HEMATOCRIT (12/03/2017 12:52 AM) Only the most recent of 8 results within the time period is included. Component Value Ref Range Hemoglobin POC 8.5 (L) 12.0 - 15.0 GM/DL Hematocrit POC 25.0 (L) 36 - 45 % Specimen Performing Laboratory [facility] [address] [place] [id number] * PTT (APTT) (12/02/2017 4:30 PM) Only the most recent of 2 results within the time period is included. Component Value Ref Range APTT 29.3 21.0 - 39.0 SEC Specimen Performing Laboratory Blood [facility] [address] [place], [place] [id number] * PROTIME INR (PT) (12/02/2017 4:30 PM) Only the most recent of 2 results within the time period is included. Component Value Ref Range INR 1.1 0.8 - 1.2 Specimen Performing Laboratory Blood [facility] [address] [place] [id number] * LINE PLCMT 1V CXR (12/02/2017 4:18 PM) Specimen Performing Laboratory RAD RESULTS Impressions 1.Interval median sternotomy with multiple indwelling medical devices as described above. 2.Small left pleural effusion and left basilar atelectasis. Approved by Tray Campbell M.D. on 12/02/2017 4:54 PM By my electronic signature, I attest that I have personally reviewed the images for this examination and formulated the interpretations and opinions expressed in this report Finalized by Les Thompson M.D. on 12/02/2017 5:02 PM. Dictated by Tray Campbell M.D. on 12/02/2017 4:46 PM. Narrative LINE PLCMT 1V CXR Clinical Indication: Female, 62 years old.ET Tube and Line Placement. Comparison: November 23, 2017 Findings: Interval median sternotomy. Endotracheal tube is seen overlying the thoracic inlet, well above the danni. Two left basilar thoracostomy tubes and a mediastinal drain are noted. A right IJ [place]-Brian catheter is seen with distal tip overlying the main pulmonary artery. Transcutaneous pacing leads are noted. Surgical clips overlie the right upper quadrant. Heart size and pulmonary vasculature are within normal limits. Small left pleural effusion and left basilar atelectasis. Scattered areas of scarring. No pneumothorax. Procedure Note Interface, Radiant Results - 12/02/2017 5:05 PM CDT LINE PLCMT 1V CXR Clinical Indication: Female, 62 years old. ET Tube and Line Placement. Comparison: November 23, 2017 Findings: Interval median sternotomy. Endotracheal tube is seen overlying the thoracic inlet, well above the danni. Two left basilar thoracostomy tubes and a mediastinal drain are noted. A right IJ [place]-Brian catheter is seen with distal tip overlying the main pulmonary artery. Transcutaneous pacing leads are noted. Surgical clips overlie the right upper quadrant. Heart size and pulmonary vasculature are within normal limits. Small left pleural effusion and left basilar atelectasis. Scattered areas of scarring. No pneumothorax. IMPRESSION 1. Interval median sternotomy with multiple indwelling medical devices as described above. 2. Small left pleural effusion and left basilar atelectasis. Approved by Tray Campbell M.D. on 12/02/2017 4:54 PM By my electronic signature, I attest that I have personally reviewed the images for this examination and formulated the interpretations and opinions expressed in this report Finalized by Les Thompson M.D. on 12/02/2017 5:02 PM. Dictated by Tray Campbell M.D. on 12/02/2017 4:46 PM. * ANESTHESIA ARTERIAL LINE INSERTION (12/02/2017 1:44 PM) Krystian Ramirez CRNA 12/02/20178:44 AM Anesthesia Procedure: Arterial Line Placement A-LINE INSERTION Date/Time: 12/02/2017 8:33 AM Patient location: Pre/Post Indications: multiple ABGs and hemodynamic monitoring Preprocedure checklist performed: 2 patient identifiers, risks & benefits discussed, patient evaluated, timeout performed, consent obtained, patient being monitored and sterile drape Sterile technique: - Proper hand washing - Cap, mask - Sterile gloves - Skin prep for antisepsis Arterial Line Procedure Patient sedated: no Artery prepped with chlorhexidine; skin prep agent completely dried prior to procedure. Location: radial artery Laterality: right Technique: palpation Needle gauge: 20 G Number of attempts: 1 Procedure Outcome Catheter secured with adhesive dressing applied Events: no complications noted during insertion and skin intact, warm, and dry Observation: pt tolerated well Performed by: KRYSTIAN PAEZ Authorized by: JEIMY YI * COMPREHENSIVE METABOLIC PANEL (12/01/2017 1:43 PM) Component Value Ref Range Sodium 136 (L) 137 - 147 MMOL/L Potassium 3.7 3.5 - 5.1 MMOL/L Chloride 103 98 - 110 MMOL/L Glucose 304 (H) 70 - 100 MG/DL Blood Urea Nitrogen 17 7 - 25 MG/DL Creatinine 0.85 0.4 - 1.00 MG/DL Calcium 9.7 8.5 - 10.6 MG/DL Total Protein 7.5 6.0 - 8.0 G/DL Total Bilirubin 0.5 0.3 - 1.2 MG/DL Albumin 3.9 3.5 - 5.0 G/DL Alk Phosphatase 70 25 - 110 U/L AST (SGOT) 13 7 - 40 U/L CO2 25 21 - 30 MMOL/L ALT (SGPT) 9 7 - 56 U/L Anion Gap 8 3 - 12 eGFR Non >60 >60 mL/min Comment: The eGFR is not validated for use in drug dosing adjustments.Continue to use estimated creatinine clearance per dosing reference text.Please contact the Clinical Pharmacist for questions. eGFR >60 >60 mL/min Comment: The eGFR is not validated for use in drug dosing adjustments.Continue to use estimated creatinine clearance per dosing reference text.Please contact the Clinical Pharmacist for questions. Specimen Performing Laboratory [facility] [address] [place] [address] * TYPE & CROSSMATCH (12/01/2017 11:55 AM) Component Value Ref Range Units Ordered 0 Crossmatch Expires 12/04/2017 Record Check FOUND ABO/RH(D) A POS Antibody Screen NEG Electronic Crossmatch YES Specimen Performing Laboratory [facility] [address] [place] [address] * TELEMETRY STRIPS-SCAN (11/26/2017 5:28 PM) Narrative Ordered by an unspecified provider. * ECG-SCAN (11/26/2017 5:27 PM) Narrative Ordered by an unspecified provider. * PROCEDURE RECORD-SCAN (11/26/2017 10:42 AM) Narrative Ordered by an unspecified provider. * MRA HEAD WO CONTRAST (11/23/2017 9:39 PM) Specimen Performing Laboratory [facility] RAD RESULTS Impressions Unremarkable MRA of the head with no evidence of aneurysm. Findings were discussed via telephone with Corrie Fuentes PA-C at 9:47 AM on . Approved by Elbert Wright M.D. on 11/24/2017 10:12 AM By my electronic signature, I attest that I have personally reviewed the images for this examination and formulated the interpretations and opinions expressed in this report Finalized by Jesus Alberto Valdez M.D. on 11/24/2017 11:35 AM. Dictated by Elbert Wright M.D. on 11/24/2017 8:29 AM. Narrative EXAM: MRA BRAIN HISTORY: Female, 62 years old, intracranial aneurysm. TECHNIQUE: 3D [id number] of the [place] was performed without contrast. MRA maximum intensity projection images were obtained of the brain with image postprocessing. COMPARISON: None FINDINGS: The distal internal carotid, vertebral, and basilar arteries are patent without focal narrowing or occlusion. The anterior, middle, and posterior cerebral arteries are patent without focal narrowing. No aneurysm or arteriovenous malformation is identified. Procedure Note Interface, Radiant Results - 11/24/2017 11:38 AM CDT EXAM: MRA BRAIN HISTORY: Female, 62 years old, intracranial aneurysm. TECHNIQUE: 3D [id number] images of the [place] was performed without contrast. MRA maximum intensity projection images were obtained of the brain with image postprocessing. COMPARISON: None FINDINGS: The distal internal carotid, vertebral, and basilar arteries are patent without focal narrowing or occlusion. The anterior, middle, and posterior cerebral arteries are patent without focal narrowing. No aneurysm or arteriovenous malformation is identified. IMPRESSION Unremarkable MRA of the head with no evidence of aneurysm. Findings were discussed via telephone with Corrie Fuentes PA-C at 9:47 AM on . Approved by Elbert Wright M.D. on 11/24/2017 10:12 AM By my electronic signature, I attest that I have personally reviewed the images for this examination and formulated the interpretations and opinions expressed in this report Finalized by Jesus Alberto Valdez M.D. on 11/24/2017 11:35 AM. Dictated by Elbert Wright M.D. on 11/24/2017 8:29 AM. * URINALYSIS MICROSCOPIC REFLEX TO CULTURE (11/23/2017 2:52 PM) Component Value Ref Range WBCs,UA PACKED 0 - 2 /HPF RBCs,UA 2-10 0 - 3 /HPF Comment,UA Urine submitted for reflex culture if criteria are met:WBC>10, positive nitrite and/or >=1+ leukocyte esterase. If quantity is not sufficient, an addendum will follow. MucousUA TRACE Squamous Epithelial Cells 2-5 0 - 5 Specimen Performing Laboratory [facility] [address] [place] [id number] * URINALYSIS DIPSTICK REFLEX TO CULTURE (11/23/2017 2:52 PM) Component Value Ref Range Color,UA YELLOW Turbidity,UA CLEAR CLEAR-CLEAR Specific [place]-Urine 1.050 (H) 1.003 - 1.035 pH,UA 5.0 5.0 - 8.0 Protein,UA NEG NEG-NEG Glucose,UA 3+ (A) NEG-NEG Ketones,UA NEG NEG-NEG Bilirubin,UA NEG NEG-NEG Blood,UA 1+ (A) NEG-NEG Urobilinogen,UA NORMAL NORM-NORMAL Nitrite,UA NEG NEG-NEG Leukocytes,UA 3+ (A) NEG-NEG Urine Ascorbic Acid, UA NEG NEG-NEG Specimen Performing Laboratory [facility] [address] [place] [address] * CULTURE-URINE W/SENSITIVITY (11/23/2017 2:52 PM) Component Value Ref Range Battery Name URINE CULTURE Specimen Description URINE Special Requests NONE Culture <10,000 organisms/ml MIXED CONTAMINANTS Report Status FINAL 11/24/2017 Specimen Performing Laboratory [facility] [address] [place] [address] * PANOREX EXAM (11/23/2017 2:41 PM) Specimen Performing Laboratory [facility] RAD RESULTS Impressions 1.Multiple missing and extracted teeth, with lucent defects along the uptake and mandibular roots. 2.The maxillary roots are not well evaluated due to overlapping artifact with the sinuses and posterior occiput. Questionable thin lucency surrounding the left maxillary lateral incisor and canine tooth could be better evaluated by CT. Erosions or caries involving the remaining maxillary teeth, sparing the residual left maxillary molar. 3.Thin rind of lucency surrounding the right mandibular canine tooth, likely due to periodontal disease/gingivitis. Finalized by Pawan Bolden M.D. on 11/23/2017 3:25 PM. Dictated by Pawan Bolden M.D. on 11/23/2017 3:23 PM. Narrative Exam: PANOREX EXAM CLINICAL INDICATION: 62 years Female; teeth infected, 6 teeth pulled 5/2, assess need for additional extraction-needs CABG. COMPARISON: None available. Procedure Note Interface, Radiant Results - 11/23/2017 3:28 PM CDT Exam: PANOREX EXAM CLINICAL INDICATION: 62 years Female; teeth infected, 6 teeth pulled 5/2, assess need for additional extraction-needs CABG. COMPARISON: None available. IMPRESSION 1. Multiple missing and extracted teeth, with lucent defects along the uptake and mandibular roots. 2. The maxillary roots are not well evaluated due to overlapping artifact with the sinuses and posterior occiput. Questionable thin lucency surrounding the left maxillary lateral incisor and canine tooth could be better evaluated by CT. Erosions or caries involving the remaining maxillary teeth, sparing the residual left maxillary molar. 3. Thin rind of lucency surrounding the right mandibular canine tooth, likely due to periodontal disease/gingivitis. Finalized by Pawan Bolden M.D. on 11/23/2017 3:25 PM. Dictated by Pawan Bolden M.D. on 11/23/2017 3:23 PM. * CHEST 2 VIEWS (11/23/2017 2:41 PM) Specimen Performing Laboratory [facility] RAD RESULTS Impressions No acute abnormality. Finalized by TERESE GOMES M.D. on 11/23/2017 2:46 PM. Dictated by TERESE GOMES M.D. on 11/23/2017 2:46 PM. Narrative CHEST 2 VIEWS . Clinical history: pre-op eval. Coronary artery disease involving [place] coronary artery of [place] heart with unstable angina pectoralis Comparison: None. . Findings: The heart size and pulmonary vascularity are within normal limits. The lungs are clear. No consolidation or pleural effusion is identified. Surgical clips overlie the right upper quadrant of the abdomen. . Procedure Note Interface, Radiant Results - 11/23/2017 2:49 PM CDT CHEST 2 VIEWS . Clinical history: pre-op eval. Coronary artery disease involving [place] coronary artery of [place] heart with unstable angina pectoralis Comparison: None. . Findings: The heart size and pulmonary vascularity are within normal limits. The lungs are clear. No consolidation or pleural effusion is identified. Surgical clips overlie the right upper quadrant of the abdomen. . IMPRESSION No acute abnormality. Finalized by TERESE GOMES M.D. on 11/23/2017 2:46 PM. Dictated by TERESE GOMES M.D. on 11/23/2017 2:46 PM. * 2-D + DOPPLER ECHOCARDIOGRAM (11/23/2017 2:02 PM) Component Value Ref Range IVS 1.47 0.6 - 0.9 cm LVIDD 4.24 3.8 - 5.2 cm LVIDS 2.86 2.2 - 3.5 cm PW 1.13 0.6 - 0.9 cm TDI e' 0.07 m/s Right Ventricular Mid 3.24 1.9 - 3.5 cm Diameter LA size 3.83 2.7 - 3.8 cm LA volume 57.98 22 - 52 mL Right Atrial Area 12.36 <18 cm2 Right Atrial Major 4.71 2.2 - 2.8 cm Dimension AV peak velocity 1.17 m/s MV Peak A Carmelo 1.38 m/s MV Peak E Carmelo PW 0.79 m/s Right Heart Systolic 2.31 >1.7 cm Mmode TAPSE Right Ventricular Basal 4.17 2.5 - 4.1 cm Diameter Sinus 3.12 2.7 - 3.3 cm BSA 1.77 m2 FS 32.55 28 - 44 % EF 55.34 % Left Atrium Index 32.76 16 - 34 E/A ratio 0.57 E/E' ratio 11.29 CV ECHO PV MEDICAL ANTHROPOLOGIST STEVEN Flowers LV mass 203.43 66 - 150 g RWT 0.53 <=0.42 Cardiology Ultrasound Siemens [id number] Machine Left Ventricle Mass Index 114.93 44 - 88 g/m2 TV rest pulmonary artery n/a mmHg pressure Right Heart Systolic TDI 0.160 m/s S' ECHO EF 40 % Specimen Performing Laboratory OTHER OUTSIDE LAB Narrative Moderately depressed left ventricular systolic function.LVEF 40-45% There is anterior apical, apical and apical lateral wall dyskinesis/aneurysm. Mild concentric left ventricular hypertrophy. Mild left atrial enlargement. No significant valvular abnormalities. No pericardial effusion. * PV CAROTID ARTERY DUPLEX SCAN (11/23/2017 2:01 PM) Component Value Ref Range LEFT CCA DIST SYS 0.58 m/s LEFT CCA DIST LAW 0.18 m/s LEFT CCA PROX SYS 0.56 m/s LEFT CCA PROX LAW 0.11 m/s LEFT ICA DIST SYS 0.57 m/s LEFT ICA DIST LAW 0.22 m/s LEFT ICA MID SYS 0.64 m/s LEFT ICA MID LAW 0.25 m/s LEFT ICA PROX SYS 0.62 m/s LEFT ICA PROX LAW 0.22 m/s LEFT ECA SYS 0.92 m/s LEFT SUBCLAVIAN SYS 1.63 m/s LEFT VERTEBRAL SYS 0.54 m/s RIGHT CCA DIST SYS 0.45 m/s RIGHT CCA DIST LAW 0.19 m/s RIGHT CCA PROX SYS 0.54 m/s RIGHT CCA PROX LAW 0.14 m/s RIGHT ICA DIST SYS 0.61 m/s RIGHT ICA DIST LAW 0.24 m/s RIGHT ICA MID SYS 0.56 m/s RIGHT ICA MID LAW 0.24 m/s RIGHT ICA PROX SYS 0.52 m/s RIGHT ICA PROX LAW 0.20 m/s RIGHT ECA SYS 4.45 m/s RIGHT SUBCLAVIAN SYS 0.72 m/s RIGHT VERTEBRAL SYS 0.53 m/s Referring Provider Ashley Banegas RIGHT ICA/CCA SYS 1.36 m/s Cardiology Ultrasound Radha Epiq Machine LEFT ICA/CCA SYS 1.10 m/s Specimen Performing Laboratory OTHER OUTSIDE LAB Narrative The right external carotid artery has turbulent flow, elevated velocities suggesting a >50% stenosis. Mild heterogenous plaquing present in bilateral carotid arteries. Normal subclavian waveforms and velocities. Antegrade vertebral flow. * PFT COMPLETE PULM FUNCTION (11/23/2017 1:59 PM) Component Value Ref Range FVC-Pre 2.22 L FVC-%Pred-pre 73 % FEV1-Pre 1.94 L FEV1-%Pred-Pre 83 % [id number] 2.73 L/sec [id number]-%Pred-Pre 128 % VCSVC-Pre 2.44 L ICSVC-Pre 0.83 L ERVSVC-Pre 1.61 L PEF-Pre 293.1 L/min TGVPleth-Pre 3.22 L RVPleth-Pre 1.40 L RVPleth-%Pred-Pre 72 % TLCPleth-Pre 3.91 L TLCPleth-%Pred-Pre 82 % DLCOunc-Pred 20.55 ml/min/mmHg DLCOunc-Pre 10.76 ml/min/mmHg DLCOunc-%Pred-Pre 52 % DLCOunc-SD 3.75 ml/min/mmHg DLCOunc-LLN 13.05 ml/min/mmHg DLCOunc-ULN 28.05 ml/min/mmHg DLCOunc-#SD -2.611 ml/min/mmHg DLCOcor-Pred 20.55 ml/min/mmHg DLCOcor-Pre 10.76 ml/min/mmHg DLCOcor-%Pred-Pre 52 % DLCOcor-SD 3.75 ml/min/mmHg DLCOcor-LLN 13.05 ml/min/mmHg DLCOcor-ULN 28.05 ml/min/mmHg DLCOcor-#SD -2.611 ml/min/mmHg DLVA-Pred 4.50 ml/min/mmHg/L DLVA-Pre 4.09 ml/min/mmHg/L DLVA-%Pred-Pre 90 % DLVA-SD 0.80 ml/min/mmHg/L DLVA-LLN 2.90 ml/min/mmHg/L DLVA-ULN 6.10 ml/min/mmHg/L DLVA-#SD -0.516 ml/min/mmHg/L Specimen Performing Laboratory [facility] [address] [place] [address] Narrative Clinical history:->pre-op eval Is this a pre-surgical evaluation?->Yes * TYPE & SCREEN (NOT CROSSMATCH ELIGIBLE) (11/23/2017 12:50 PM) Component Value Ref Range ABO/RH(D) A POS Antibody Screen NEG Blood Component Type RED CELL GROUP Specimen Performing Laboratory Blood, venous - Blood [facility] [address] [place] [address] * PLAVIX RESISTANCE (PLATELETWORKS) (11/23/2017 12:18 PM) Component Value Ref Range Platelet Inhibition 3 0 - 15 % Comment: Normal ADP inhibition should be less than 15%. Therapeutic (Plavix and other P2Y 12) levels should be greater than 30%. Specimen Performing Laboratory [facility] [address] [place] [address] * BNP (B-TYPE NATRIURETIC PEPTI) (11/23/2017 11:32 AM) Component Value Ref Range B Type Natriuretic 345.0 (H) 0 - 100 PG/ML Peptide Specimen Performing Laboratory [facility] [address] [place] [address] * HEMOGLOBIN A1C (11/23/2017 11:32 AM) Component Value Ref Range Hemoglobin A1C 10.4 (H) 4.0 - 6.0 % Comment: The ADA recommends that most patients with type 1 and type 2 diabetes maintain an A1c level <7%. Specimen Performing Laboratory [facility] [address] [place] [address] * CARDIAC CATH REPORT (11/23/2017 11:10 AM) Specimen Performing Laboratory OTHER OUTSIDE LAB Procedure Note Vinod Cortes MD - 11/23/2017 11:10 AM CDT [facility] CARDIAC CATHETERIZATION REPORT Page 2 NIMISHA Condon : 1955 [facility]#: [id number] MR #/Billing ID #: [id number] / [id number] DATE: 11/23/2017 CORRECTION OFFICER HEAD: Vinod Cortes MD DICTATING PROVIDER: Vinod Cortes MD REFERRING PHYSICIAN: ASHLEY BANEGAS PROCEDURES PERFORMED: 1. Left heart catheterization. 2. Selective left and right coronary cineangiograms. PROCEDURE: Ms. Jaramillo is a 62-year-old female who presented with a history of coronary artery disease and recent cardiac catheterization suggesting chronic total occlusion of the mid LAD. On arrival to laborer operator, she was hemodynamically stable and pain free. Moderate IV conscious sedation was monitored and administered by myself, nursing, and technical staff for a total duration of 30 minutes. The bilateral groins were then prepped and draped in typical fashion. We infiltrated the right groin with approximately 20 mL of 1% lidocaine and advanced a 5-Micronesian arterial sheath. Selective left and right coronary cineangiograms as well as left heart catheterization were performed utilizing a 5-Micronesian diagnostic coronary catheter. Intracoronary nitroglycerin was administered to better visualize collateral flow and branches. Upon completion of the procedure, all catheters and wires were removed, and she was transferred back to her room hemodynamically stable and pain free. TOTAL IV CONTRAST: 64 mL of Visipaque 320. TOTAL RADIATION: 623 mGy of air Karma. FINDINGS: LEFT HEART CATHETERIZATION: 1. Left ventricular end-diastolic pressures were 8 mmHg. There was no gradient across aortic valve. 2. Selective left and right coronary cineangiograms. 3. Left coronary was visualized with the JL4 catheter. The left main bifurcated to LAD and circumflex vessel. The left main itself had some mild plaquing but no high-grade focal disease was appreciated. There was a stent extending back jailing the ostium of the circumflex. The LAD had multiple stents from the proximal to the mid distal segment. There was diffuse in-stent restenosis with an occlusion at the mid segment. There was some faint left-to- left and [id number]-ph-kdvn collateralization of the apical segment of the LAD. The LAD was occluded in the midportion just after a small to medium-sized diagonal branch which had a 70% to 80% ostial stenosis. 4. The circumflex was visualized, gave rise to a small first obtuse marginal, a larger second obtuse marginal branch. The origin of the circumflex had what appeared to be a 70% stenosis. The mid circumflex had a 50% to 60% lesion followed by an 80% to 90% stenosis just proximal to the bifurcation of the second obtuse marginal branch. There was some ykos-yb-ymhwc collateralization of the posterolateral segment. 5. The [place] right coronary was visualized with a JR4 catheter. Technically, it appeared dominant supplying a posterior descending and a posterolateral branch. However, the posterior descending artery was small. The right coronary , the mid segment had a stent with some mild in-stent restenosis. Distally, there was a second stent extending into the posterolateral branch which had a high-grade lesion with a 95% stenosis at the distal aspect of the stent. There appeared to be at least 2 posterolateral vessels arising distal to this segment faintly. ASSESSMENT/PLAN: 1. Severe coronary disease manifest by the following: a. Occluded mid left anterior descending artery with faint xrym-vz-efvj collaterals. b. 90% mid second obtuse marginal stenosis with a 70% ostial circumflex stenosis. c. 95% proximal posterior lateral stenosis. PLAN: We will consult Cardiothoracic Surgery for evaluation. MD MG Toth/Hakeem /[id number] cc: - ASHLEY BANEGAS * LIPID PROFILE (11/23/2017 8:48 AM) Component Value Ref Range Cholesterol 193 <200 MG/DL Triglycerides 289 (H) <150 MG/DL HDL 51 >40 MG/DL LDL 87 <100 MG/DL VLDL 58 MG/DL Non HDL Cholesterol 142 MG/DL Comment: Calculated non-HDL Cholesterol (non-HDL-C) indirectly measures LDL-C, Lp(a), IDL-C, and VLDL-C.It is a surrogate marker for Apoprotein B.Goal should be less than 130 mg/dL. Specimen Performing Laboratory [facility] [address] [place] [address] from Last 3 Months
--- OUTSIDE RECORDS SUMMARY | 2017-12-09 01:00 | XMS REPORT | Encounter Summary ---
Author Author [facility] Organization [facility] Address Unknown Phone Unavailable Care Team Providers Care Director Family Name Role Phone Deann Parker MD PCP Encounter Details Date Type Department Care Team Description 12/08/2017 Pharmacy Visit [facility] [address] [place] [address] Social History Tobacco Use Types Packs/Day Years Used Date Former Smoker 1 45 Quit: 01/23/2017 Smokeless Tobacco: Never Used Alcohol Use Drinks/Week oz/Week Comments No Sex Assigned at Date Recorded Not on file as of this encounter Functional Status Functional Status Response Date of Assessment Does the patient have a hearing impairment: No 12/03/2017 as of this encounter Plan of Treatment Not on fileas of this encounter Visit Diagnoses Not on filein this encounter
--- OUTSIDE RECORDS SUMMARY | 2017-12-09 01:01 | XMS REPORT | Encounter Summary ---
Author Author [facility] Organization [facility] Address Unknown Phone Unavailable Care Team Providers Care Health And Safety Trainer Name Role Phone Deann Parker MD PCP Encounter Details Date Type Department Care Team Description 12/04/2017 Pharmacy Visit [facility] [address] [place] [address] Social History Tobacco Use Types Packs/Day Years [...]
--- OUTSIDE RECORDS SUMMARY | 2017-12-09 01:01 | XMS REPORT | Encounter Summary ---
Author Author [facility] Organization [facility] Address Unknown Phone Unavailable Care Team Providers Care Military Lawyer Name Role Phone Ashley Banegas MD PCP Reason for Referral * Status Reason Specialty Diagnoses / Referred By Referred To Procedures Contact Contact New Request Procedures Richa Ni, REQUEST FOR PA-C CARDIOLOGY [address] [place] [address] Reason for Visit * Auth/Cert Status Reason Specialty Diagnoses / Referred By Referred To Procedures Contact Contact Diagnoses Coronary artery disease involving [place] coronary artery of [place] heart with unstable angina pectoris (HCC) Coronary artery disease involving [place] coronary artery of [place] heart with unstable angina pectoris (HCC) [I25.110] P rocedures BYPASS GRAFT CORONARY ARTERY Encounter Details Date Type Department Care Team Description 12/02/2017 Hospital Cardiothor Jeimy Inman MD Coronary artery disease - Encounter [address] involving [place] coronary 12/08/2017 [place] [address] [address] artery of [place] heart [phone] [place] [address] with unstable angina [phone] pectoris (HCC) Social History Tobacco Use Types Packs/Day Years Used Date Former Smoker 1 45 Quit: 01/23/2017 Smokeless Tobacco: Never Used Alcohol Use Drinks/Week oz/Week Comments No Sex Assigned at Date Recorded Not on file as of this encounter Last Filed Vital Signs Vital Sign Reading [...] Mass Index 29.59 12/08/2017 4:00 AM CDT in this encounter Functional Status Functional Status Response Date of Assessment Does the patient have a hearing impairment: No 12/03/2017 as of this encounter Discharge Summaries * Richa Ni PA-C - 12/08/2017 2:05 PM CDT Formatting of this note may be different from the original. Physician Discharge Summary Name: Nimisha Jaramillo Date Of : 1955 Age: 62 years Admit date: 12/02/2017 Discharge date: 12/08/2017 Attending Physician: Iva Service: Cardiothor Surg Physician Summary completed by: Richa Ni PA-C Reason for hospitalization: 62y/o F with PMHx of IDDM, HTN, dyslipidemia and CAD s/p PCI who was found to have multivessel CAD. BNP was 345 preoperatively. Significant PMH: Past Medical History: Diagnosis Date Bilateral carotid artery disease ([facility]) 11/17/2017 05/04/17 - Carotid U/S: mild 1-39% stenosis, nonobstructive disease bilaterally. Cancer ([facility]) 2012 Cervical COPD (chronic obstructive pulmonary disease) ([facility]) Coronary artery disease involving [place] coronary artery of [place] heart with unstable angina pectoris ([facility]) 11/17/2017 03/04/17 - LHC: Total occlusion of the mid LAD, balloon angioplasty using 2 different sized balloons. No reestablishment of flow. Appears the artery is diffusely diseased & occluded. Proximal portion has severe disease - balloon angioplasty with slight improvement. Severe disease at mid and distal circumflex - fairly small artery. Patent stent in large dominant RCA. Normal LV , EF 60%, normal LVEDP. HARDING (dyspnea on exertion) Essential hypertension 11/17/2017 Gastrointestinal disorder History of tobacco abuse 11/17/2017 Mixed hyperlipidemia 11/17/2017 Myocardial infarction ([facility]) 04/2017 PAD (peripheral artery disease) ([facility]) 11/17/2017 TMJ click Type 2 diabetes mellitus with complication, with long-term current use of insulin ([facility]) 11/17/2017 Allergies: Fish containing products; Ketoprofen; Mushroom; and Penicillins Brief Hospital Course: The patient was admitted and taken to the operating room under the surgical direction of Dr Yi. She tolerated surgery well and was transferred to the ICU. Intraoperative AYALA revealed EF of 45% without hypertrophy. She was extubated and chest tubes were removed. Endocrinology was consulted for management with poorly controlled insulin dependent diabetes, pre-op HbA1c 10.4. She was transferred to the floor on POD #1. She was weaned off oxygen and was mobilized. He had normal bladder and bowel function. She was started on beta heather and ARTURO-I and she was diuresed. certified adaptive physical educator was consulted for lifestyle modification for poorly controlled diabetes. She was stable for discharge on POD # 6. 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 Coronary artery bypass times 3 with the left internal mammary artery to the left anterior descending artery, reversed saphenous vein graft to PL and reversed saphenous vein graft to obtuse marginal. 2. Endoscopic harvest of greater saphenous vein from left leg. Significant Diagnostic Studies and Procedures: noted in brief hospital course Consults: Endocrinology Patient Disposition: Home Patient instructions/medications: CHEST 2 VIEWS Standing Status: Future Standing Exp. Date: 12/04/18 Reason for exam:(Sign,Symptom,Reason) s/p cabg Other Activity Restrictions -You should and need to walk daily. Your goal is to walk 30 minutes at at time without stopping for breaks. This is a daily exercise routine that you should start as soon as you arrive home. Your basic daily activities do not count toward your 30 minute minimum, e.g. housework, toileting, fixing meals. Do not exercise outside in extremely hot or cold temperatures. -Bathing: NO tub baths, hot tubs, or swimming for 6 weeks. You may shower at any time. -Driving: NO driving for 2 weeks or while taking narcotics -Lifting: NO lifting more than 10 pounds (gallon of milk) for 6 weeks. -Monitoring: If you have access to a home blood pressure cuff, record your blood pressure and heart rate daily. Please call if your systolic blood pressure is <90 or >160, OR if your heart rate is <50 or >120 at rest Activity as Tolerated It is important to keep increasing your activity level after you leave the hospital. Moving around can help prevent blood clots, lung infection (pneumonia ) and other problems. Gradually increasing the number of times you are up moving around will help you return to your normal activity level more quickly. Continue to increase the number of times you are up to the chair and walking daily to return to your normal activity level. You should resume your normal activity in 6 week(s). Report These Signs and Symptoms Please contact your doctor for the following symptoms: *Temperature over 100 degrees F *Uncontrolled pain *Drainage with a foul odor *Shortness of breath *Racing or skipping heart beats *Popping or clicking of your breastbone *Suture material sticking up through your incisions *Change in coordination of ability to talk *If you gain more than 2 pounds in 24 hours, or 5 pounds in one week. Questions About Your Stay For questions or concerns regarding your hospital stay. Call [phone] Discharging attending physician: JEIMY YI [[id number]] Cardiac Diet Limiting unhealthy fats and cholesterol is the most important step you can take in reducing your risk for cardiovascular disease. Unhealthy fats include saturated and trans fats. Monitor your sodium and cholesterol intake. Restrict your sodium to 2g (grams) or 2000mg (milligrams) daily, and your cholesterol to 200mg daily. If you have questions regarding your diet at home, you may contact a dietitian at . Diabetic Diet You should eat between 1600 and 2000 calories per day. This is equal to 60g ( grams) of carbohydrates per meal, and 30g of carbohydrates for a bedtime snack. If you have questions about your diet after you go home, you can call a dietitian at [phone]. Incision Care *Keep your incision clean and dry. *May shower daily. *Do not submerge incision in tub, pool, hot tub, or rushing for 4 weeks. *Your incision should gradually look better each day. If you notice unusual swelling, redness, drainage, have increasing pain at the site, or have a fever greater than 100 degrees, notify your physician immediately. Return Appointment Chest xray at 12:30, appointment to follow at 1:30. Provider JEIMY YI [[id number]] Location [facility] Appointment date: 01/12/2018 Appointment time: 12:30 PM Return Appointment You will need to call to schedule appointment to be seen in 1 week. Provider ASHLEY BANEGAS [[id number]] Return Appointment You will be contacted for follow up to be seen in 4 weeks. Provider ARNULFO CORTES [[id number]] Cardiac Rehab Your physician has referred you to outpatient cardiac rehab. Contact [facility] Cardiac Rehab Department at [phone] to schedule an appointment. Opioid (Narcotic) Safety Information OPIOID (NARCOTIC) PAIN MEDICATION SAFETY We care about your comfort, and believe you need opioid medications at this time to treat your pain. An opioid is a strong pain medication. It is only available by prescription for moderate to severe pain. Usually these medications are used for only a short time to treat pain, but sometimes will be prescribed for longer. Talk with your doctor or nurse about how long they expect you to need this medication. When used the right way, opioids are safe and effective medications to treat your pain, even when used for a long time. Yet, when used in the wrong way, opioids can be dangerous for you or others. Opioids do not work for everyone. Most patients do not get full relief of their pain from opioid medication; full relief of your pain may not be possible. For your safety, we ask you to follow these instructions: *Only take your opioid medication as prescribed. If your pain is not controlled with the prescribed dose, or the medication is not lasting long enough, call your doctor. *Do not break or crush your opioid medication unless your doctor or pharmacist says you can. With certain medications, this can be dangerous, and may cause . *Never share your medications with others, even if they appear to have a good reason. Never take someone else's pain medication-this is dangerous, and illegal (a crime). Overdoses and deaths have occurred. *Keep your opioid medications safe, as you would with rousseau, in a lock box or similar container. *Make sure your opioids are going to be secure, especially if you are around children or teens. *Talk with your doctor or pharmacist before you take other medications. *Avoid driving, operating machinery, or drinking alcohol while taking opioid pain medication. This may be unsafe. Pain medications can cause constipation. Constipation is bowel movements that are less often than normal. Stools often become very hard and difficult to pass. This may lead to stomach pain and bloating. It may also cause pain when trying to use the bathroom. Constipation may be treated with suppositories, laxatives or stool softeners. A diet high in fiber with plenty of fluids helps to maintain regular, soft bowel movements. REQUEST FOR CARDIOLOGY APPOINTMENT Standing Status: Future Standing Exp. Date: 12/04/22 Scheduling Priority: Routine Schedule OV with (1st choice Provider) Arnulfo Cortes M.D. Special Visit Information Hospital Follow Up - Established Patient Current Discharge Medication List START taking these medications Details metFORMIN-ER(+) (FORTAMET) 1,000 mg extended release tablet Take 1 tablet by mouth twice daily with meals. Qty: 180 tablet, Refills: 3 PRESCRIPTION TYPE: Normal oxyCODONE/acetaminophen (PERCOCET) 5/325 mg tablet Take 1-2 tablets by mouth every 6 hours as needed for Pain Earliest Fill Date: 12/08/17 Qty: 30 tablet, Refills: 0 PRESCRIPTION TYPE: Print senna/docusate (SENOKOT-S) 8.6/50 mg tablet Take 2 tablets by mouth twice daily. Qty: 30 tablet, Refills: 0 PRESCRIPTION TYPE: Normal CONTINUE these medications which have been CHANGED or REFILLED Details insulin aspart U-100 (NOVOLOG FLEXPEN) 100 unit/mL injection PEN Inject 0-14 Units under the skin three times daily with meals. Inject 8 units under the skin three times daily with meals. Plus 0-14 units on sliding scale. Qty: 45 mL, Refills: 3 PRESCRIPTION TYPE: Normal Associated Diagnoses: Coronary artery disease involving [place] coronary artery of [place] heart with unstable angina pectoris (HCC) insulin detemir(+) (LEVEMIR) 100 unit/mL soln Inject 26 Units under the skin at bedtime daily. Qty: 10 mL, Refills: 12 PRESCRIPTION TYPE: Normal Associated Diagnoses: Coronary artery disease involving [place] coronary artery of [place] heart with unstable angina pectoris (HCC) lisinopril (PRINIVIL; ZESTRIL) 5 mg tablet Take 1 tablet by mouth daily. Qty: 90 tablet, Refills: 3 PRESCRIPTION TYPE: Normal metoprolol XL (TOPROL XL) 25 mg extended release tablet Take 1 tablet by mouth daily. Qty: 90 tablet, Refills: 3 PRESCRIPTION TYPE: Normal CONTINUE these medications which have NOT CHANGED Details aspirin EC 81 mg tablet Take 81 mg by mouth daily. Take with food. PRESCRIPTION TYPE: Historical Med atorvastatin (LIPITOR) 40 mg tablet Take 40 mg by mouth daily. PRESCRIPTION TYPE: Historical Med calcium carbonate (TUMS) 500 mg (200 mg elemental calcium) chewable tablet Chew 500 mg by mouth as Needed. PRESCRIPTION TYPE: Historical Med Cholecalciferol (Vitamin D3) (VITAMIN D) 1,000 unit cap Take 1 capsule by mouth daily. PRESCRIPTION TYPE: Historical Med evolocumab (REPATHA) 140 mg/mL injectable PEN Inject 140 mg under the skin every 14 days. PRESCRIPTION TYPE: Historical Med nitroglycerin (NITROSTAT) 0.[address] 0.4 mg under tongue every 5 minutes as needed for Chest Pain. Max of 3 tablets, call 911. PRESCRIPTION TYPE: Historical Med spironolactone (ALDACTONE) 25 mg tablet Take 0.5 tablets by mouth daily. Take with food. Qty: 15 tablet, Refills: 5 PRESCRIPTION TYPE: Normal Associated Diagnoses: Coronary artery disease involving [place] coronary artery of [place] heart with unstable angina pectoris (HCC) traMADol (ULTRAM) 50 mg tablet Take 50 mg by mouth every 6 hours as needed for Pain. PRESCRIPTION TYPE: Historical Med The following medications were removed from your list. This list includes medications discontinued this stay and those removed from your prior med list in our system amLODIPine (NORVASC) 10 mg tablet isosorbide mononitrate SR (IMDUR) 30 mg tablet Scheduled appointments: Jan 12, 2018 1:30 PM CDT Post - Op with Jeimy Yi MD [facility] [address] [place] [id number] Signed: Richa Ni PA-C 12/08/2017 cc: Primary Care Physician: Ashley Banegas Referring physicians: Ashley Banegas MD Additional provider(s): Arnulfo Cortes MD in this encounter Discharge Instructions * Discharge Instr - Other Info - Maryjane Whitehead RN - 12/08/2017 2:21 PM CDT * Discharge Instr - Case Management - Meghan Berger RN - 12/08/2017 11:00 AM CDT Your home health agency is [facility]. They will contact you within 24- 48 hours to set up you admission visit. If you do not hear from them in that time, please call them at [phone]. If you have any additional questions or concerns regarding home health, please call Meghan Berger RN, BSN Integrated Nurse Flavoring Machine Operator in this encounter Medications at Time of Discharge Medication Sig. Disp. Refills Start Date End Date aspirin EC 81 mg tablet Take 81 mg by mouth daily. Take with food. atorvastatin (LIPITOR) 40 Take 40 mg by mouth mg tablet daily. calcium carbonate (TUMS) Chew 500 mg by mouth as 500 mg (200 mg elemental Needed. calcium) chewable tablet Cholecalciferol (Vitamin Take 1 capsule by mouth D3) (VITAMIN D) 1,000 daily. unit cap evolocumab (REPATHA) 140 Inject 140 mg under the mg/mL injectable PEN skin every 14 days. insulin aspart U-100 Inject 0-14 Units under 45 mL 3 12/08/2017 (NOVOLOG FLEXPEN) 100 the skin three times unit/mL injection daily with meals. Inject PENIndications: Coronary 8 units under the skin artery disease involving three times daily with [place] coronary artery of meals. Plus 0-14 units [place] heart with on sliding scale. unstable angina pectoris (HCC) insulin detemir(+) Inject 26 Units under the 10 mL 12 12/08/2017 (LEVEMIR) 100 unit/mL skin at bedtime daily. solnIndications: Coronary artery disease involving [place] coronary artery of [place] heart with unstable angina pectoris (HCC) lisinopril (PRINIVIL; Take 1 tablet by mouth 90 tablet 3 12/08/2017 ZESTRIL) 5 mg tablet daily. metFORMIN-ER(+) Take 1 tablet by mouth 180 tablet 3 12/08/2017 (FORTAMET) 1,000 mg twice daily with meals. extended release tablet metoprolol XL (TOPROL XL) Take 1 tablet by mouth 90 tablet 3 2017 25 mg extended release daily. tablet nitroglycerin (NITROSTAT) Place 0.4 mg under tongue 0.4 mg tablet every 5 minutes as needed for Chest Pain. Max of 3 tablets, call 911. oxyCODONE/acetaminophen Take 1-2 tablets by mouth 30 tablet 0 2017 (PERCOCET) 5/325 mg every 6 hours as needed tablet for Pain Earliest Fill Date: 12/08/17 senna/docusate Take 2 tablets by mouth 30 tablet 0 12/08/2017 (SENOKOT-S) 8.6/50 mg twice daily. tablet spironolactone Take 0.5 tablets by mouth 15 tablet 5 11/25/2017 (ALDACTONE) 25 mg daily. Take with food. tabletIndications: Coronary artery disease involving [place] coronary artery of [place] heart with unstable angina pectoris (HCC) traMADol (ULTRAM) 50 mg Take 50 mg by mouth every tablet 6 hours as needed for Pain. as of this encounter Progress Notes * Maryjane Whitehead, PORTIA - 12/08/2017 3:13 PM CDT 1500 -Reviewed discharge instructions, prescriptions/medications, follow-up appt with pt and pt's family. Pt states verbal understanding - no questions. IV and Tele dc'd. Medications will be brought to the bedside by pharmacy research anthropologist team when ready. Pt's RN, Sujatha, mert. * Shanti Huang RN - 12/08/2017 3:07 PM CDT Assumed care at 0700. Assessment complete and documented per flowsheet. SR c BBB on tele. VSS per trend. AOx4. RA Surgical incisions C/D/I. Pain controlled with current regimen, see EMAR. Adequate UOP. Pt. up to walk unit this shift. HFR bundle in place, call light within reach. DC orders in place, will continue to monitor until DCed home this shift * , Meghan - 12/08/2017 2:13 PM CDT Formatting of this note may be different from the original. 12/08/17 1412 Cardiac Rehab Activity Distance Walked (feet) 450 ft (up and down 3 steps ) BP Post-activity 148/74 HR Post-activity 88 SaO2 Post-activity 97 O2 Device None (Room Air) Comments Upon arrival to pt's room, pt was walking out of room with staff ready to walk. Pt ambulated with a wheeled walker. Pt went up and down 3 steps. Pt tolerated ambulation well. * Terrance Mack MD - 12/08/2017 11:39 AM CDT Formatting of this note may be different from the original. Endocrinology Progress Note Nimisha Jaramillo Date of Admission: 12/02/2017 Impression: 1. 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 regimen: Levemir 35 units daily, NovoLog 10 units with meals, mid dose correction factor Hypoglycemic episodes on this regimen: None but fasting glucose was between 70-90 Follows up with for diabetes management: PCP at [place], [place] Diabetic-complications assessment: Retinopathy: Yes Peripheral neuropathy: Yes Autonomic neuropathy: no Nephropathy: Not known Macrovascular complications: CAD Risk factor assessment: Last lipid profile - On ACEi/ARB?:yes On Statin?: yes Coronary artery disease: Status post CABG on 12/02/2017 Hypertension Hyperlipidemia COPD Recommendations/Plan: Glycemic control remains inadequate but limited to inconsistent intake . 1. Increase NovoLog to 8 units postmeal, based on percentage of meal eaten 3 times daily. 2. Continue Lantus 26 units daily. 3. Continue mid dose correction factor before meals and bedtime. 4. We will restart metformin once patient is eating better or at time of discharge. Will follow along with you with goal BS 100-140 mg/dl fasting and 140-180 during the day. __ Subjective: Nimisha Jaramillo is a 62 y.o. female. No acute events overnight. No hypoglycemic episodes. Patient is taking a walk with PT this morning. She reported appetite improved some but still variable. On ROS: Denies chest pain, shortness of breath. Objective: Vital Signs: Last Filed Vital Signs: 24 Hour Range BP: 133/65 (12/08 0731) Temp: 36.4 C (97.6 F) (12/08 730) Pulse: 89 (12/09 811) Respirations: 18 PER MINUTE (12/08 730) SpO2: 97 % (12/08 730) O2 Delivery: None (Room Air) (12/08 730) BP: (133-145)/(62-77) Temp: [36.4 C (97.6 F)-37.3 C (99.1 F)] Pulse: [86-98] Respirations: [15 PER MINUTE-18 PER MINUTE] SpO2: [92 %-97 %] O2 Delivery: None (Room Air) Intake/Output Summary (Last 24 hours) at 12/08/17 1140 Last data filed at 12/08/17 1055 Gross per 24 hour Intake 922 ml Output 2050 ml Net -1128 ml Physical Examination: GEN: Alert, oriented, no apparent distress HEENT: No scleral icterus/pallor Chest: Sternotomy wound RESP: Breathing comfortably EXT: No edema Labs: Recent Labs 12/06/17 2049 12/07/17 0328 12/07/17 0718 12/07/17 1135 12/07/17 1741 12/07/17 2116 12/08/17 0731 12/08/17 1119 GLUPOC 215* 119* 134* 328* 171* 202* 131* 234* Recent Labs 12/06/17 0446 12/07/17 0423 NA 132* 134* K 4.2 4.0 CL 99 99 CO2 28 27 GAP 5 8 BUN 35* 21 CR 0.79 0.61 GLU 129* 124* CA 8.8 8.9 MG 2.4 2.0 Recent Labs 12/06/17 0446 12/07/17 0423 WBC 9.2 7.7 HGB 8.9* 9.4* HCT 26.0* 27.6* PLTCT 129* 186 Lipid Profile: Lab Results Component Value Date CHOL 193 11/23/2017 TRIG 289 11/23/2017 HDL 51 11/23/2017 LDL 87 11/23/2017 VLDL 58 11/23/2017 Estimated Creatinine Clearance: 78.1 mL/min (based on SCr of 0.61 mg/dL). Vitals: 12/06/17 0400 12/07/17 0414 12/08/17 0400 Weight: 75.7 kg (166 lb 12.8 oz) 74.8 kg (165 lb) 73.4 kg (161 lb 12.8 oz) No results for input(s): PHART, PO2ART in the last 72 hours. Invalid input(s): PC02A Thyroid Studies No results found for: TSH, FREET4, FREEINDEX No results found for: FREET3, I9GCXLHMT, THYBINDGLB Meds aspirin 81 mg Oral QDAY atorvastatin 40 mg Oral QDAY heparin (porcine) 5,000 Units Subcutaneous Q8H insulin aspart U-100 0-14 Units Subcutaneous ACHS insulin aspart U-100 8 Units Subcutaneous TID after meals insulin glargine 26 Units Subcutaneous QHS(22) lidocaine 1-2 patch Topical QDAY lisinopril 5 mg Oral QDAY metoprolol XL 25 mg Oral QDAY senna/docusate 2 tablet Oral BID IV MEDS Prnacetaminophen Q6H PRN OR [DISCONTINUED] acetaminophen Q6H PRN, albuterol Q4H PRN, albuterol 0.083% Q4H PRN, alum/mag hydroxide/simeth Q4H PRN, benzocaine/menthol Q2H PRN, bisacodyl QDAY PRN, hydrALAZINE Q6H PRN, lidocaine PF PRN, milk of magnesia (CONC) QDAY PRN, ondansetron Q6H PRN OR ondansetron Q6H PRN, oxyCODONE Q4H PRN, potassium chloride SR PRN OR potassium chloride PRN OR potassium chloride in water PRN, traMADol Q6H PRN Terrance Mack MD Pager # [phone] 12/08/2017 * 12/08/2017 9:00 AM CDT Formatting of this note may be different from the original. 12/08/17 0858 Cardiac Rehab Activity Distance Walked (feet) 360 ft (with 1 seated rest, up and down 3 steps) BP Pre-activity (!) 114/98 BP Post-activity 125/60 HR Pre-activity 88 bpm HR Post-activity 103 SaO2 Pre-activity 96 % SaO2 Post-activity 96 O2 Device None (Room Air) Comments Pt ambulated with a wheeled walker. Pt took 1 seated rest break due to fatigue. Pt went up and down 3 steps. Pt reports knee pain that is usual for her when walking. RN notified of knee pain. * Annalise Lee RN - 12/08/2017 5:19 AM CDT Assessment complete and documented per flowsheet. Tele on, SR, BBB. V-wires capped. VSS, afebrile. No nausea/emesis. Pt reported incisional and chronic back pain, see MAR/heating pad. Surgical incisions pink, C/D/I. UOP adequate. Walked full lap with RN/walker. No complaints voiced, high fall risk bundle in place. Call light within reach. Will continue to monitor. * Trang Wright RN - 12/07/2017 10:09 AM CDT VSS, SR c BBB on tele. No pain, nausea improved this am. Lidocaine patch controlled incision pain. Incisions CDI. Adequate UOP. Ambulating halls well with walker. at bed side. Will monitor. * Josie Ribera - 12/07/2017 8:35 AM CDT Formatting of this note may be different from the original. 12/07/17 0815 Cardiac Rehab Activity Distance Walked (feet) 360 ft BP Pre-activity 121/57 BP Post-activity 139/66 HR Pre-activity 87 bpm HR Post-activity 95 SaO2 Pre-activity 99 % SaO2 Post-activity 95 O2 Device None (Room Air) Comments Pt requested to ambulate on 1 L O2; pt ambulated with gait belt and wheeled walker; pt had to be reminded not run into stationary items on unit; pt in chair Mobility Progressive Mobility Level 9 Level of Assistance Assist X1 Assistive Device Walker Time Tolerated 0-10 minutes Activity Limited By No limitations * Elbert Aguilar PA-C - 12/07/2017 7:56 AM CDT Formatting of this note may be different from the original. Cardiothoracic Surgery Progress Note Nimisha Jaramillo Today's Date: 12/07/2017 Admission Date: 12/02/2017 LOS: 5 days POD: 5 Procedure: BYPASS GRAFT CORONARY ARTERY x3, LEFT INTERNAL MAMMARY ARTERY HARVEST , LEFT ENDOSCOPIC SAPHENOUS VEIN HARVEST: Principal Problem: Coronary artery disease involving [place] coronary artery of [place] heart with unstable angina pectoris (HCC) Active Problems: PAD (peripheral artery disease) ([facility] [place]) Essential hypertension Mixed hyperlipidemia History of tobacco abuse Type 2 diabetes mellitus with complication, with long-term current use of insulin (HCC) 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 CV SR, BP 100-140, cont ASA 81 mg (hold for plts <80k) and statin. Tolerating toprol 25 and ACEI in the initial post op phase. Intra op AYALA LVEF 45 %. 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 Norvasc, spironolactone, isosorbid, lisinopril, metoprolol. Resp Daily CXR bedside interpretation: lungs expanded, left pleural effusion, bibasilar atelectasis, Encourage IS and activity Renal Baseline Scr ~0.68-->0.79-->0.61. Monitor BMP, assess for FILIBERTO. net - 960mls ml/24hrs, 4. kg up. diurese GI - ADAT, multiple BM's yesterday. Nausea slightly improved. Hold amiodarone ID Continue standard post op antibiotic for prophylaxis, per CTS protocol. Heme Hold DVT prophylaxis until cleared by CTS, continue mechanical prophylaxis. FEN If creatinine < 2.0, replace Mg and K per CTS post op protocol. Hgb A1c 10.4 %. Appreciate endo assistance. Transitioned to SC insulin Activity Ambulate TID with nursing. Early cardiac PT/OT. Disposition- increase activity, diurese, endo adjusting insulin. Hold amiodarone Prophylaxis Review: Lines: No Antibiotic Usage: No VTE: Mechanical prophylaxis; Foot pump Urinary Catheter: No Elbert Aguilar PA-C 12/07/2017 Subjective: HPI: Nimisha Jaramillo is a 62 y.o. female with a history of insulin-dependent diabetes, hypertension, hypertriglyceridemia, COPD, carotid stenosis and known coronary disease with previous PCI. Her LHC on 12/01/17 showed chronic occlusion of her LAD, an 80% proximal diagonal, 90% mid OM, a 95% distal RCA. She underwent elective CABG today with Dr. Yi and was brought to [facility] ICU for recovery. She was extubated and weaned from support overnight, transitioned to telemetry status POD #1. REVIEW OF SYSTEMS: Constitutional: In no acute distress CV: Denies chest pain or palpitations Resp: Denies increased work of breathing, positive for cough with sputum production GI: Denies nausea or vomiting : Denies urinary retention or dysuria. Objective: Medications: Scheduled Meds: aspirin chewable tablet 81 mg 81 mg Oral QDAY atorvastatin (LIPITOR) tablet 40 mg 40 mg Oral QDAY furosemide (LASIX) injection 40 mg 40 mg Intravenous ONCE insulin aspart U-100 (NOVOLOG FLEXPEN) injection PEN 0-14 Units 0-14 Units Subcutaneous ACHS insulin aspart U-100 (NOVOLOG FLEXPEN) injection PEN 6 Units 6 Units Subcutaneous TID after meals insulin glargine (LANTUS SOLOSTAR, BASAGLAR) injection PEN 26 Units 26 Units Subcutaneous QHS(22) lidocaine (LIDODERM) 5 % topical patch 1-2 patch 1-2 patch Topical QDAY metoprolol XL (TOPROL XL) tablet 25 mg 25 mg Oral QDAY senna/docusate (SENOKOT-S) tablet 2 tablet 2 tablet Oral BID Continuous Infusions: PRN and Respiratory Meds:acetaminophen Q6H PRN OR acetaminophen Q6H PRN, albuterol Q4H PRN, albuterol 0.083% Q4H PRN, alum/mag hydroxide/simeth Q4H PRN, benzocaine/menthol Q2H PRN, bisacodyl QDAY PRN, hydrALAZINE Q6H PRN, lidocaine PF PRN, milk of magnesia (CONC) QDAY PRN, ondansetron Q6H PRN OR ondansetron Q6H PRN, oxyCODONE Q4H PRN, potassium chloride SR PRN OR potassium chloride PRN OR potassium chloride in water PRN, traMADol Q6H PRN Vital Signs: Last Filed Vital Signs: 24 Hour Range BP: 137/81 (12/08 319) Temp: 37 C (98.6 F) (12/08 319) Pulse: 79 (12/08 319) Respirations: 18 PER MINUTE (12/08 319) SpO2: 95 % (12/08 319) O2 Delivery: None (Room Air) (12/08 319) BP: (108-141)/(56-81) Temp: [36.1 C (97 F)-37 C (98.6 F)] Pulse: [70-79] Respirations: [15 PER MINUTE-18 PER MINUTE] SpO2: [94 %-100 %] O2 Delivery: None (Room Air) Intensity Pain Scale 0-10 (Pain 1): 7 (12/07/17 0320) Vitals: 12/05/17 0638 12/06/17 0400 12/07/17 0414 Weight: 76.6 kg (168 lb 12.8 oz) 75.7 kg (166 lb 12.8 oz) 74.8 kg (165 lb) Intake/Output Summary: (Last 24 hours) Intake/Output Summary (Last 24 hours) at 12/07/17 0756 Last data filed at 12/07/17 0409 Gross per 24 hour Intake 690 ml Output 1650 ml Net -960 ml Physical Exam: Neuro: GONZALEZ Cardiovascular: RRR no rub or murmur Respiratory: LS CTA cat - diminished in the bases GI: soft, NT, hypoactive BS Extremities: No Edema Incisions: Sternal incision dressing, dry and intact. No crepitus or sternal instability. Laboratory: LABS: Recent Labs 12/05/17 0343 12/06/176 12/07/17 0423 NA 131* 132* 134* K 4.1 4.2 4.0 CL 100 99 99 CO2 24 28 27 GAP 7 5 8 BUN 34* 35* 21 CR 0.95 0.79 0.61 GLU 223* 129* 124* CA 8.8 8.8 8.9 MG 2.7* 2.4 2.0 Recent Labs 12/05/17 0343 12/06/17 0446 12/07/17 0423 WBC 10.8 9.2 7.7 HGB 9.2* 8.9* 9.4* HCT 26.8* 26.0* 27.6* PLTCT 126* 129* 186 Estimated Creatinine Clearance: 78.9 mL/min (based on SCr of 0.61 mg/dL). Vitals: 12/05/17 0638 12/06/17 0400 12/07/17 0414 Weight: 76.6 kg (168 lb 12.8 oz) 75.7 kg (166 lb 12.8 oz) 74.8 kg (165 lb) No results for input(s): PHART, PO2ART in the last 72 hours. Invalid input(s): PC02A Radiology and Other Diagnostic Procedures Review: Reviewed Associated attestation - Deniz Langston MD - 12/07/2017 9:31 AM CDT Doing better. Tolerating liquids. Probably home tomorrow. ED * Annalise Lee, RN - 12/07/2017 5:22 AM CDT Assessment complete and documented per flowsheet. Tele on, SR, BBB. VSS, afebrile. Amio held per Dr. Langston's note, no emesis over night, nausea this AM. Pt reported incisional and chronic back pain, see MAR/heating pad. Surgical incisions C/D/I. UOP adequate. No complaints voiced, high fall risk bundle in place. Call light within reach. Will continue to monitor. * Elbert Castellano, RT - 12/06/2017 8:41 AM CDT Formatting of this note may be different from the original. RESPIRATORY THERAPY ADULT PROTOCOL EVALUATION RESPIRATORY PROTOCOL PLAN Medications Albuterol: MDI PRN;Neb PRN Note: If indicated by protocol, medication orders will be placed by therapist. Procedures PAP: Place a nursing order for "IS Q1h While Awake" for any of Lung Expansion indicators Oxygen/Humidity: O2 to keep SpO2 > 92% Monitoring: Pulse oximetry Q6h & PRN PATIENT EVALUATION RESULTS Chart Review * Pulmonary Hx: Hx pulmonary disease, hx reactive or obstructive airway disease (PEFR & AM) OR regular home use of bronchodilators (AM) OR inhaled or systemic steroid use for lungs < or equal to 4 times/yr (AM) * Surgical Hx: Thoracic or abdominal surgery with reactive or obstructive airway disease (LE) (AM) * Chest X-Ray: Infiltrates (AC) OR atelectasis (LE) OR pleural effusion OR rib fractures (LE) * PFT/Oxygenation: FEV1, PEFR > 80% predicted OR physically unable to perform OR Pa02 >80 RA OR Sp02 >95% RA Patient Assessment * Respiratory Pattern: Regular pattern and rate OR good chest excursion with deep breathing * Breath Sounds: Clear and able to auscultate bases posteriorly * Cough / Sputum: Strong, effective cough OR nonproductive * Mental Status: Alert, oriented, cooperative * Activity Level: Ambulatory with assistance Priority Index Total Points: 10 Points * Priority Index: 2+ PRIORITY INDEX GUIDELINES* Priority Points 1 0-9 points 2 9-18 points 3 > 18 points + Pulm Dx or Home Rx *Higher points indicate higher acuity. Therapist: Elbert Castellano, RT Date: 12/06/2017 [place] AC=Airway clearance AM=Aerosolized medication BA=[place] aerosol DB&C=Deep breathe & cough FEV1=Forced expiratory volume in first second) IC=Inspiratory capacity LE=Lung expansion MDI=Metered dose inhaler Neb=Nebulizer O2=Oxygen Oxim=Oximetry PEFR=Peak expiratory flow rate CARDIAC REHABILITATION PROGRAM DIRECTOR=Rapid Response Team Associated attestation - Deniz Langston MD - 12/06/2017 10:29 AM CDT Nauseated. Hold amiodarone. Mobilize. * Elbert Aguilar PA-C - 12/06/2017 8:00 AM CDT Formatting of this note may be different from the original. Cardiothoracic Surgery Progress Note Nimisha Jaramillo Today's Date: 12/06/2017 Admission Date: 12/02/2017 LOS: 4 days POD: 4 Procedure: BYPASS GRAFT CORONARY ARTERY x3, LEFT INTERNAL MAMMARY ARTERY HARVEST , LEFT ENDOSCOPIC SAPHENOUS VEIN HARVEST: Principal Problem: Coronary artery disease involving [place] coronary artery of [place] heart with unstable angina pectoris (HCC) Active Problems: PAD (peripheral artery disease) ([facility] [place]) Essential hypertension Mixed hyperlipidemia History of tobacco abuse Type 2 diabetes mellitus with complication, with long-term current use of insulin (HCC) 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 CV SR, BP 90-130, cont ASA 81 mg (hold for plts <80k) and statin. Tolerating toprol 25 and ACEI in the initial post op phase. Intra op AYALA LVEF 45 %. 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 Norvasc, spironolactone, isosorbid, lisinopril, metoprolol. Resp Daily CXR bedside interpretation: lungs expanded, left pleural effusion, bibasilar atelectasis, Encourage IS and activity Renal Baseline Scr ~0.68-->0.79. Monitor BMP, assess for FILIBERTO. net -960mls ml/24hrs, 4. kg up. GI - ADAT, start post op bowel regimen. ID Continue standard post op antibiotic for prophylaxis, per CTS protocol. Heme Hold DVT prophylaxis until cleared by CTS, continue mechanical prophylaxis. FEN If creatinine < 2.0, replace Mg and K per CTS post op protocol. Hgb A1c 10.4 %. Appreciate endo assistance. Transitioned to SC insulin Activity Ambulate TID with nursing. Early cardiac PT/OT. Disposition- increase activity, diurese, endo adjusting insulin. May need one more day for diureses and improve activity. DC PW Prophylaxis Review: Lines: No Antibiotic Usage: No VTE: Mechanical prophylaxis; Foot pump Urinary Catheter: No Elbert Aguilar PA-C 12/06/2017 Subjective: HPI: Nimisha Jaramillo is a 62 y.o. female with a history of insulin-dependent diabetes, hypertension, hypertriglyceridemia, COPD, carotid stenosis and known coronary disease with previous PCI. Her LHC on 12/01/17 showed chronic occlusion of her LAD, an 80% proximal diagonal, 90% mid OM, a 95% distal RCA. She underwent elective CABG today with Dr. Yi and was brought to [facility] ICU for recovery. She was extubated and weaned from support overnight, transitioned to telemetry status POD #1. REVIEW OF SYSTEMS: Constitutional: In no acute distress CV: Denies chest pain or palpitations Resp: Denies increased work of breathing, positive for cough with sputum production GI: Denies nausea or vomiting : Denies urinary retention or dysuria. Objective: Medications: Scheduled Meds: acetaminophen (TYLENOL) tablet 1,000 mg 1,000 mg Oral Q6H* amiodarone (CORDARONE) tablet 400 mg 400 mg Oral BID aspirin chewable tablet 81 mg 81 mg Oral QDAY atorvastatin (LIPITOR) tablet 40 mg 40 mg Oral QDAY furosemide (LASIX) injection 40 mg 40 mg Intravenous ONCE insulin aspart U-100 (NOVOLOG FLEXPEN) injection PEN 0-14 Units 0-14 Units Subcutaneous ACHS insulin aspart U-100 (NOVOLOG FLEXPEN) injection PEN 6 Units 6 Units Subcutaneous TID after meals insulin glargine (LANTUS SOLOSTAR, BASAGLAR) injection PEN 26 Units 26 Units Subcutaneous QHS(22) lidocaine (LIDODERM) 5 % topical patch 1-2 patch 1-2 patch Topical QDAY metoprolol XL (TOPROL XL) tablet 25 mg 25 mg Oral QDAY senna/docusate (SENOKOT-S) tablet 2 tablet 2 tablet Oral BID Continuous Infusions: PRN and Respiratory Meds:[START ON 12/07/2017] acetaminophen Q6H PRN OR [ START ON 12/07/2017] acetaminophen Q6H PRN, albuterol Q4H PRN, albuterol 0.083% Q4H PRN, alum/mag hydroxide/simeth Q4H PRN, benzocaine/menthol Q2H PRN, bisacodyl QDAY PRN, hydrALAZINE Q6H PRN, lidocaine PF PRN, milk of magnesia ( CONC) QDAY PRN, ondansetron Q6H PRN OR ondansetron Q6H PRN, oxyCODONE Q4H PRN, potassium chloride SR PRN OR potassium chloride PRN OR potassium chloride in water PRN, traMADol Q6H PRN Vital Signs: Last Filed Vital Signs: 24 Hour Range BP: 128/62 (12/07 399) Temp: 37.1 C (98.7 F) (12/07 399) Pulse: 73 (12/07 399) Respirations: 16 PER MINUTE (12/07 399) SpO2: 94 % (12/07 399) O2 Delivery: None (Room Air) (12/07 399) BP: (100-130)/(57-65) Temp: [36.3 C (97.4 F)-37.1 C (98.7 F)] Pulse: [67-74] Respirations: [16 PER MINUTE-18 PER MINUTE] SpO2: [94 %-99 %] O2 Delivery: None (Room Air) Intensity Pain Scale 0-10 (Pain 1): 6 (12/06/17 0400) Vitals: 12/04/17 0630 12/05/17 0638 12/06/17 0400 Weight: 75.8 kg (167 lb) 76.6 kg (168 lb 12.8 oz) 75.7 kg (166 lb 12.8 oz) Intake/Output Summary: (Last 24 hours) Intake/Output Summary (Last 24 hours) at 12/06/17 0800 Last data filed at 12/06/17 0400 Gross per 24 hour Intake 240 ml Output 1200 ml Net -960 ml Physical Exam: Neuro: GONZALEZ Cardiovascular: RRR no rub or murmur Respiratory: LS CTA cat - diminished in the bases GI: soft, NT, hypoactive BS Extremities: No Edema Incisions: Sternal incision dressing, dry and intact. No crepitus or sternal instability. Laboratory: LABS: Recent Labs 12/04/17 0353 12/05/17 0343 12/06/17 0446 NA 135* 131* 132* K 4.5 4.1 4.2 CL 105 100 99 CO2 21 24 28 GAP 9 7 5 BUN 25 34* 35* CR 1.18* 0.95 0.79 GLU 225* 223* 129* CA 8.7 8.8 8.8 MG 2.8* 2.7* 2.4 Recent Labs 12/04/17 0353 12/05/17 0343 12/06/17 0446 WBC 12.3* 10.8 9.2 HGB 8.8* 9.2* 8.9* HCT 26.2* 26.8* 26.0* PLTCT 131* 126* 129* Estimated Creatinine Clearance: 70.3 mL/min (based on SCr of 0.79 mg/dL). Vitals: 12/04/17 0630 12/05/17 0638 12/06/17 0400 Weight: 75.8 kg (167 lb) 76.6 kg (168 lb 12.8 oz) 75.7 kg (166 lb 12.8 oz) No results for input(s): PHART, PO2ART in the last 72 hours. Invalid input(s): PC02A Radiology and Other Diagnostic Procedures Review: Reviewed * Lashawn Salazar RN - 12/06/2017 5:40 AM CDT VSS, SR c BBB on tele. C/o incisional pain, tramadol given for relief. Incisions c/d/i, silverlon dressings in place. Adequate UOP, +BM's. Will continue to monitor. * Meghan Daniels - 12/05/2017 2:55 PM CDT Formatting of this note may be different from the original. 12/05/17 1452 Cardiac Rehab Activity Distance Walked (feet) 150 ft (1 sitting rest) BP Pre-activity 105/60 BP Post-activity 129/64 HR Pre-activity 73 bpm HR Post-activity 72 SaO2 Pre-activity 93 % (on RA) SaO2 Post-activity 94 (on 1L NC) O2 Device Nasal Cannula O2 (lpm) 1 LPM Comments Prior to ambulation, pt's O2 sat was 93% on RA. Pt ambulated with a wheeled walker. Pt requesting to sit about 50 feet into walk. Checked O2 sat and it was 88%. Put pt on 1L NC and O2 sat went to 94%. Pt states she would like to take a short walk due to feeling fatigued. Pt ambulated rest of distance back to room. Once back in room O2 sat was 94% on 1L NC. * Eugenia Gutierrez MBBS - 12/05/2017 11:00 AM CDT Formatting of this note may be different from the original. 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, NYHA class 2 ( [facility] [place]) On mechanically assisted ventilation ([facility]) 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 regimen: Levemir 35 units daily, NovoLog 10 units with meals, mid dose correction factor Hypoglycemic episodes on this regimen: None but fasting glucose was between 70-90 Follows up with for diabetes management: PCP at [place], [place] Diabetic-complications assessment: Retinopathy: Yes Peripheral neuropathy: Yes Autonomic neuropathy: no Nephropathy: Not known Macrovascular complications: CAD Risk factor assessment: Last lipid profile - On ACEi/ARB?:yes On Statin?: yes Coronary artery disease: Status post CABG on 12/02/2017 Hypertension Hyperlipidemia COPD Recommendations: Fasting glucose is not adequate yet. We will increase Lantus to 26 units daily. Continue NovoLog 6 units postmeal, based on percentage of meal eaten. Continue mid dose correction factor before meals and bedtime. We will restart metformin once patient is eating better. We will continue to follow. Patient was discussed with Dr. Tatum. Subjective Nimisha Jaramillo is a 62 y.o. female. Patient is feeling okay however her appetite is very low. No nausea or vomiting. Feels fatigued. Medications Scheduled Meds: acetaminophen (TYLENOL) tablet 1,000 mg 1,000 mg Oral Q6H* amiodarone (CORDARONE) tablet 400 mg 400 mg Oral BID aspirin chewable tablet 81 mg 81 mg Oral QDAY atorvastatin (LIPITOR) tablet 40 mg 40 mg Oral QDAY furosemide (LASIX) injection 40 mg 40 mg Intravenous BID(9-17) insulin aspart U-100 (NOVOLOG FLEXPEN) injection PEN 0-14 Units 0-14 Units Subcutaneous ACHS insulin aspart U-100 (NOVOLOG FLEXPEN) injection PEN 6 Units 6 Units Subcutaneous TID after meals insulin glargine (LANTUS SOLOSTAR, BASAGLAR) injection PEN 26 Units 26 Units Subcutaneous QHS(22) lidocaine (LIDODERM) 5 % topical patch 1-2 patch 1-2 patch Topical QDAY metoprolol XL (TOPROL XL) tablet 25 mg 25 mg Oral QDAY senna/docusate (SENOKOT-S) tablet 2 tablet 2 tablet Oral BID Continuous Infusions: PRN and Respiratory Meds:[START ON 12/07/2017] acetaminophen Q6H PRN OR [ START ON 12/07/2017] acetaminophen Q6H PRN, albuterol Q4H PRN, albuterol 0.083% Q4H PRN, alum/mag hydroxide/simeth Q4H PRN, benzocaine/menthol Q2H PRN, bisacodyl QDAY PRN, hydrALAZINE Q6H PRN, lidocaine PF PRN, milk of magnesia ( CONC) QDAY PRN, ondansetron Q6H PRN OR ondansetron Q6H PRN, oxyCODONE Q4H PRN, potassium chloride SR PRN OR potassium chloride PRN OR potassium chloride in water PRN, traMADol Q6H PRN Objective Vital Signs: Last Filed Vital Signs: 24 Hour Range BP: 109/85 (12/06 715) Temp: 36.9 C (98.4 F) (12/06 715) Pulse: 79 (12/06 715) Respirations: 18 PER MINUTE (12/06 715) SpO2: 100 % (12/06 715) O2 Delivery: Nasal Cannula (12/06 715) BP: (92-119)/(52-85) Temp: [36.6 C (97.9 F)-37 C (98.6 F)] Pulse: [71-79] Respirations: [17 PER MINUTE-18 PER MINUTE] SpO2: [93 %-100 %] O2 Delivery: Nasal Cannula Intensity Pain Scale 0-10 (Pain 1): 8 (12/05/17 0005) Vitals: 12/03/17 0453 12/04/17 0630 12/05/17 0638 Weight: 73.8 kg (162 lb 9.6 oz) 75.8 kg (167 lb) 76.6 kg (168 lb 12.8 oz) Intake/Output Summary: (Last 24 hours) Intake/Output Summary (Last 24 hours) at 12/05/17 1100 Last data filed at 12/05/17 0638 Gross per 24 hour Intake 1310 ml Output 700 ml Net 610 ml Physical Exam General appearance: alert and cooperative Neurologic: Grossly normal Lungs: No respiratory distress Heart: regular rate and rhythm, S1, S2 normal, Abdomen: Nondistended Extremities: extremities normal, atraumatic, no cyanosis or edema Lab Review 24-hour labs: Results for orders placed or performed during the hospital encounter of (from the past 24 hour(s)) POC GLUCOSE Collection Time: 12/04/17 11:28 AM Result Value Ref Range Glucose, POC 228 (H) 70 - 100 MG/DL POC GLUCOSE Collection Time: 12/04/17 5:29 PM Result Value Ref Range Glucose, POC 234 (H) 70 - 100 MG/DL POC GLUCOSE Collection Time: 12/04/17 9:14 PM Result Value Ref Range Glucose, POC 172 (H) 70 - 100 MG/DL BASIC METABOLIC PANEL Collection Time: 12/05/17 3:43 AM Result Value Ref Range Sodium 131 (L) 137 - 147 MMOL/L Potassium 4.1 3.5 - 5.1 MMOL/L Chloride 100 98 - 110 MMOL/L CO2 24 21 - 30 MMOL/L Anion Gap 7 3 - 12 Glucose 223 (H) 70 - 100 MG/DL Blood Urea Nitrogen 34 (H) 7 - 25 MG/DL Creatinine 0.95 0.4 - 1.00 MG/DL Calcium 8.8 8.5 - 10.6 MG/DL eGFR Non 60 (L) >60 mL/min eGFR >60 >60 mL/min CBC Collection Time: 12/05/17 3:43 AM Result Value Ref Range White Blood Cells 10.8 4.5 - 11.0 K/UL RBC 3.08 (L) 4.0 - 5.0 M/UL Hemoglobin 9.2 (L) 12.0 - 15.0 GM/DL Hematocrit 26.8 (L) 36 - 45 % MCV 87.0 80 - 100 FL MCH 30.0 26 - 34 PG MCHC 34.5 32.0 - 36.0 G/DL RDW 12.9 11 - 15 % Platelet Count 126 (L) 150 - 400 K/UL MPV 10.5 7 - 11 FL MAGNESIUM Collection Time: 12/05/17 3:43 AM Result Value Ref Range Magnesium 2.7 (H) 1.6 - 2.6 mg/dL POC GLUCOSE Collection Time: 12/05/17 4:00 AM Result Value Ref Range Glucose, POC 219 (H) 70 - 100 MG/DL POC GLUCOSE Collection Time: 12/05/17 7:16 AM Result Value Ref Range Glucose, POC 210 (H) 70 - 100 MG/DL Point of Care Testing (Last 24 hours) Glucose: (!) 223 POC Glucose (Download): (!) 210 Radiology and other Diagnostics Review: none Eugenia Gutierrez MD Endocrinology Fellow PGY-5 * Deniz Langston MD - 12/05/2017 8:31 AM CDT Slow progress. Adjusting BG per endocrine. ED * Annalise Adams RN - 12/05/2017 5:31 AM CDT SR c occasional BBB on tele. VSS on RA. Incisions/dressings CDI. Pain managed with current regimen. Adequate UOP. -BM. Pt ambulating on unit with nursing staff. Call light in reach. Will continue to monitor. * Duran Jauregui, RT - 12/04/2017 9:08 PM CDT Formatting of this note may be different from the original. RESPIRATORY THERAPY ADULT PROTOCOL EVALUATION RESPIRATORY PROTOCOL PLAN Medications Albuterol: Neb PRN Note: If indicated by protocol, medication orders will be placed by therapist. Procedures PEP Therapy: Place a nursing order for "IS Q1h While Awake" for any of Lung Expansion indicators PAP: Q4h PAP While Awake Oxygen/Humidity: O2 to keep SpO2 > 92% Monitoring: Pulse oximetry BID & PRN PATIENT EVALUATION RESULTS Chart Review * Pulmonary Hx: Smoking cessation < 8 weeks OR still smoking OR > 20 pack/yr hx (PEFR) OR occasional use of bronchodilator (AM) * Surgical Hx: Thoracic or abdominal surgery with reactive or obstructive airway disease (LE) (AM) * Chest X-Ray: Infiltrates (AC) OR atelectasis (LE) OR pleural effusion OR rib fractures (LE) * PFT/Oxygenation: FEV1, PEFR < 70% OR Pa02 < 70 RA OR Sp02 <92% RA OR Fi02 > 0.21 to keep Sp02 > 92% OR < 24 hours post-op (02 & oxim) OR chronic C02 retention (C02) Patient Assessment * Respiratory Pattern: Regular pattern and rate OR good chest excursion with deep breathing * Breath Sounds: Clear apically, but diminished in bases (LE) OR CHF related crackles (02) (oximetry) * Cough / Sputum: Strong, effective cough OR nonproductive * Mental Status: Alert, oriented, cooperative * Activity Level: Ambulatory with assistance Priority Index Total Points: 12 Points * Priority Index: 2+ PRIORITY INDEX GUIDELINES* Priority Points 1 0-9 points 2 9-18 points 3 > 18 points + Pulm Dx or Home Rx *Higher points indicate higher acuity. Therapist: Duran Jauregui RT Date: 12/04/2017 Zamudio AC=Airway clearance AM=Aerosolized medication BA=[place] aerosol DB&C=Deep breathe & cough FEV1=Forced expiratory volume in first second) IC=Inspiratory capacity LE=Lung expansion MDI=Metered dose inhaler Neb=Nebulizer O2=Oxygen Oxim=Oximetry PEFR=Peak expiratory flow rate CARDIAC REHABILITATION PROGRAM DIRECTOR=Rapid Response Team * Lars Tatum MD - 12/04/2017 2:23 PM CDT Formatting of this note may be different from the original. 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, NYHA class 2 ( [facility]) On mechanically assisted ventilation ([facility]) 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 regimen: Levemir 35 units daily, NovoLog 10 units with meals, mid dose correction factor Hypoglycemic episodes on this regimen: None but fasting glucose was between 70-90 Follows up with for diabetes management: PCP at [place], [place] Diabetic-complications assessment: Retinopathy: Yes Peripheral neuropathy: Yes Autonomic neuropathy: no Nephropathy: Not known Macrovascular complications: CAD Risk factor assessment: Last lipid profile - On ACEi/ARB?:yes On Statin?: yes Coronary artery disease: Status post CABG on 12/02/2017 Hypertension Hyperlipidemia COPD Recommendations: Continue Lantus 20 Patient has started eating solids however her appetite is not predictable yet. We will give 4 units of NovoLog postmeal, based on percentage of meal eaten. We will start mid dose correction factor before meals and bedtime, once patient is off insulin drip. We will restart metformin once patient is eating well. This is an individual we are following for hyperglycemia. DM His glycemic control is well Subjective Nimisha Jaramillo is a 62 y.o. female. Patient has had no cases of hypoglycemia. Medications Scheduled Meds: acetaminophen (TYLENOL) tablet 1,000 mg 1,000 mg Oral Q6H* amiodarone (CORDARONE) tablet 400 mg 400 mg Oral BID aspirin chewable tablet 81 mg 81 mg Oral QDAY atorvastatin (LIPITOR) tablet 40 mg 40 mg Oral QDAY insulin aspart U-100 (NOVOLOG FLEXPEN) injection PEN 0-14 Units 0-14 Units Subcutaneous ACHS insulin aspart U-100 (NOVOLOG FLEXPEN) injection PEN 4 Units 4 Units Subcutaneous TID after meals insulin glargine (LANTUS SOLOSTAR, BASAGLAR) injection PEN 20 Units 20 Units Subcutaneous QHS(22) lidocaine (LIDODERM) 5 % topical patch 1-2 patch 1-2 patch Topical QDAY senna/docusate (SENOKOT-S) tablet 2 tablet 2 tablet Oral BID Continuous Infusions: PRN and Respiratory Meds:[START ON 12/07/2017] acetaminophen Q6H PRN OR [ START ON 12/07/2017] acetaminophen Q6H PRN, albuterol Q4H PRN, alum/mag hydroxide /simeth Q4H PRN, bisacodyl QDAY PRN, hydrALAZINE Q6H PRN, lidocaine PF PRN, milk of magnesia (CONC) QDAY PRN, ondansetron Q6H PRN OR ondansetron Q6H PRN , oxyCODONE Q4H PRN, potassium chloride SR PRN OR potassium chloride PRN OR potassium chloride in water PRN, traMADol Q6H PRN Objective Vital Signs: Last Filed Vital Signs: 24 Hour Range BP: 105/62 (12/05 1127) Temp: 37 C (98.6 F) (12/05 1127) Pulse: 77 (12/05 1127) Respirations: 18 PER MINUTE (12/05 1127) SpO2: 94 % (12/05 1127) O2 Delivery: None (Room Air) (12/05 1127) BP: (91-134)/(45-96) Temp: [36.4 C (97.6 F)-37.6 C (99.6 F)] Pulse: [63-83] Respirations: [16 PER MINUTE-18 PER MINUTE] SpO2: [92 %-96 %] O2 Delivery: None (Room Air) Intensity Pain Scale 0-10 (Pain 1): 10 (12/04/17 0835) Vitals: 12/02/17 2000 12/03/17 0453 12/04/17 0630 Weight: 71.3 kg (157 lb 3 oz) 73.8 kg (162 lb 9.6 oz) 75.8 kg (167 lb) Intake/Output Summary: (Last 24 hours) Intake/Output Summary (Last 24 hours) at 12/04/17 1423 Last data filed at 12/04/17 1256 Gross per 24 hour Intake 1277.1 ml Output 400 ml Net 877.1 ml Physical Exam General appearance: alert and cooperative Neurologic: Grossly normal Lungs: clear to auscultation bilaterally Heart: regular rate and rhythm, S1, S2 normal, no murmur, click, rub or gallop Abdomen: soft, non-tender. Bowel sounds normal. No masses, no organomegaly Extremities: extremities normal, atraumatic, no cyanosis or edema Lab Review 24-hour labs: Results for orders placed or performed during the hospital encounter of (from the past 24 hour(s)) POC GLUCOSE Collection Time: 12/03/17 2:36 PM Result Value Ref Range Glucose, POC 285 (H) 70 - 100 MG/DL POC GLUCOSE Collection Time: 12/03/17 3:36 PM Result Value Ref Range Glucose, POC 278 (H) 70 - 100 MG/DL POC GLUCOSE Collection Time: 12/03/17 4:54 PM Result Value Ref Range Glucose, POC 252 (H) 70 - 100 MG/DL POC GLUCOSE Collection Time: 12/03/17 5:45 PM Result Value Ref Range Glucose, POC 233 (H) 70 - 100 MG/DL POC GLUCOSE Collection Time: 12/03/17 6:55 PM Result Value Ref Range Glucose, POC 247 (H) 70 - 100 MG/DL POC GLUCOSE Collection Time: 12/03/17 7:47 PM Result Value Ref Range Glucose, POC 228 (H) 70 - 100 MG/DL POC GLUCOSE Collection Time: 12/03/17 8:54 PM Result Value Ref Range Glucose, POC 142 (H) 70 - 100 MG/DL POC GLUCOSE Collection Time: 12/03/17 9:55 PM Result Value Ref Range Glucose, POC 100 70 - 100 MG/DL POC GLUCOSE Collection Time: 12/03/17 10:29 PM Result Value Ref Range Glucose, POC 104 (H) 70 - 100 MG/DL POC GLUCOSE Collection Time: 12/04/17 12:06 AM Result Value Ref Range Glucose, POC 112 (H) 70 - 100 MG/DL BASIC METABOLIC PANEL Collection Time: 12/04/17 3:53 AM Result Value Ref Range Sodium 135 (L) 137 - 147 MMOL/L Potassium 4.5 3.5 - 5.1 MMOL/L Chloride 105 98 - 110 MMOL/L CO2 21 21 - 30 MMOL/L Anion Gap 9 3 - 12 Glucose 225 (H) 70 - 100 MG/DL Blood Urea Nitrogen 25 7 - 25 MG/DL Creatinine 1.18 (H) 0.4 - 1.00 MG/DL Calcium 8.7 8.5 - 10.6 MG/DL eGFR Non 46 (L) >60 mL/min eGFR 56 (L) >60 mL/min CBC Collection Time: 12/04/17 3:53 AM Result Value Ref Range White Blood Cells 12.3 (H) 4.5 - 11.0 K/UL RBC 2.96 (L) 4.0 - 5.0 M/UL Hemoglobin 8.8 (L) 12.0 - 15.0 GM/DL Hematocrit 26.2 (L) 36 - 45 % MCV 88.7 80 - 100 FL MCH 29.7 26 - 34 PG MCHC 33.4 32.0 - 36.0 G/DL RDW 13.3 11 - 15 % Platelet Count 131 (L) 150 - 400 K/UL MPV 10.3 7 - 11 FL MAGNESIUM Collection Time: 12/04/17 3:53 AM Result Value Ref Range Magnesium 2.8 (H) 1.6 - 2.6 mg/dL POC GLUCOSE Collection Time: 12/04/17 7:53 AM Result Value Ref Range Glucose, POC 177 (H) 70 - 100 MG/DL POC GLUCOSE Collection Time: 12/04/17 11:28 AM Result Value Ref Range Glucose, POC 228 (H) 70 - 100 MG/DL Point of Care Testing (Last 24 hours) Glucose: (!) 225 POC Glucose (Download): (!) 228 Radiology and other Diagnostics Review: none Lars Tatum MD * Meghan Daniels - 12/04/2017 1:41 PM CDT Formatting of this note may be different from the original. 12/04/17 1338 Cardiac Rehab Activity Distance Walked (feet) 200 ft BP Pre-activity 96/47 (see comments) BP Post-activity 105/67 HR Pre-activity 73 bpm HR Post-activity 75 SaO2 Pre-activity 96 % SaO2 Post-activity 94 O2 Device None (Room Air) Comments Prior to ambulation, pt's BP was 96/47. Had pt sit on the edge of bed and it was 105/67. Pt denied dizziness or lightheadedness. Pt ambulated with a wheeled walker and took 1 sitting rest break due to fatigue. Notified RN of BP' s. * Elbert Aguilar PA-C - 12/04/2017 7:16 AM CDT Formatting of this note may be different from the original. Cardiothoracic Surgery Progress Note Nimisha Jaramillo Today's Date: 12/04/2017 Admission Date: 12/02/2017 LOS: 2 days POD: 2 Procedure: BYPASS GRAFT CORONARY ARTERY x3, LEFT INTERNAL MAMMARY ARTERY HARVEST , LEFT ENDOSCOPIC SAPHENOUS VEIN HARVEST: Principal Problem: Coronary artery disease involving [place] coronary artery of [place] heart with unstable angina pectoris (HCC) Active Problems: PAD (peripheral artery disease) ([facility]) Essential hypertension Mixed hyperlipidemia History of tobacco abuse Type 2 diabetes mellitus with complication, with long-term current use of insulin ([facility]) 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 CV SR, BP 90-130, cont ASA 81 mg (hold for plts <80k) and statin. Hold BB and ACEI in the initial post op phase. Intra op AYALA LVEF 45%. 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 Norvasc, spironolactone, isosorbid, lisinopril, metoprolol. Resp Daily CXR bedside interpretation: lungs expanded, left pleural effusion, bibasilar atelectasis, Encourage IS and activity Renal Baseline Scr ~0.68-->1.18. Monitor BMP, assess for FILIBERTO. net +513 ml/ 24hrs, 4.5 kg up. GI - ADAT, start post op bowel regimen. ID Continue standard post op antibiotic for prophylaxis, per CTS protocol. Heme Hold DVT prophylaxis until cleared by CTS, continue mechanical prophylaxis. FEN If creatinine < 2.0, replace Mg and K per CTS post op protocol. Hgb A1c 10.4 %. Appreciate endo assistance. Transitioned to SC insulin Activity Ambulate TID with nursing. Early cardiac PT/OT. Disposition- increase activity, discuss diureses and renal function with staff, endo adjusting insulin, Consider starting BB tomorrow. Home in a couple of days if continues to improve Prophylaxis Review: Lines: No Antibiotic Usage: No VTE: Mechanical prophylaxis; Foot pump Urinary Catheter: No Elbert Aguilar PA-C 12/04/2017 Subjective: HPI: Nimisha Jaramillo is a 62 y.o. female with a history of insulin-dependent diabetes, hypertension, hypertriglyceridemia, COPD, carotid stenosis and known coronary disease with previous PCI. Her LHC on 12/01/17 showed chronic occlusion of her LAD, an 80% proximal diagonal, 90% mid OM, a 95% distal RCA. She underwent elective CABG today with Dr. Yi and was brought to [facility] ICU for recovery. She was extubated and weaned from support overnight, transitioned to telemetry status POD #1. REVIEW OF SYSTEMS: Constitutional: In no acute distress CV: Denies chest pain or palpitations Resp: Denies increased work of breathing, positive for cough with sputum production GI: Denies nausea or vomiting : Denies urinary retention or dysuria. Objective: Medications: Scheduled Meds: acetaminophen (TYLENOL) tablet 1,000 mg 1,000 mg Oral Q6H* amiodarone (CORDARONE) tablet 400 mg 400 mg Oral BID aspirin chewable tablet 81 mg 81 mg Oral QDAY atorvastatin (LIPITOR) tablet 40 mg 40 mg Oral QDAY insulin aspart U-100 (NOVOLOG FLEXPEN) injection PEN 0-14 Units 0-14 Units Subcutaneous ACHS insulin aspart U-100 (NOVOLOG FLEXPEN) injection PEN 4 Units 4 Units Subcutaneous TID after meals insulin glargine (LANTUS SOLOSTAR, BASAGLAR) injection PEN 20 Units 20 Units Subcutaneous QHS(22) lidocaine (LIDODERM) 5 % topical patch 1-2 patch 1-2 patch Topical QDAY senna/docusate (SENOKOT-S) tablet 2 tablet 2 tablet Oral BID Continuous Infusions: insulin regular (NOVOLIN R) 100 Units in sodium chloride 0.9% (NS) 100 mL IV drip (std conc) Stopped (12/03/172199) PRN and Respiratory Meds:[START ON 12/07/2017] acetaminophen Q6H PRN OR [ START ON 12/07/2017] acetaminophen Q6H PRN, albuterol Q4H PRN, alum/mag hydroxide /simeth Q4H PRN, bisacodyl QDAY PRN, hydrALAZINE Q6H PRN, lidocaine PF PRN, milk of magnesia (CONC) QDAY PRN, ondansetron Q6H PRN OR ondansetron Q6H PRN , oxyCODONE Q4H PRN, potassium chloride SR PRN OR potassium chloride PRN OR potassium chloride in water PRN, traMADol Q6H PRN Vital Signs: Last Filed Vital Signs: 24 Hour Range BP: 134/96 (12/04 629) Temp: 36.6 C (97.9 F) (12/04 309) Pulse: 65 (12/04 309) Respirations: 16 PER MINUTE (12/04 309) SpO2: 93 % (12/04 309) O2 Delivery: None (Room Air) (12/03 192) SpO2 Pulse: 67 (12/03 1000) BP: (91-134)/(45-96) Temp: [36.4 C (97.6 F)-37.1 C (98.8 F)] Pulse: [42-73] Respirations: [16 PER MINUTE-21 PER MINUTE] SpO2: [92 %-98 %] O2 Delivery: None (Room Air) Intensity Pain Scale 0-10 (Pain 1): 10 (12/04/17 0150) Vitals: 12/02/17199912/03/17 0453 12/04/17629 Weight: 71.3 kg (157 lb 3 oz) 73.8 kg (162 lb 9.6 oz) 75.8 kg (167 lb) Intake/Output Summary: (Last 24 hours) Intake/Output Summary (Last 24 hours) at 12/04/17 0716 Last data filed at 12/04/17 0305 Gross per 24 hour Intake 988.07 ml Output 475 ml Net 513.07 ml Physical Exam: Neuro: GONZALEZ Cardiovascular: RRR no rub or murmur Respiratory: LS CTA cat - diminished in the bases GI: soft, NT, hypoactive BS Extremities: No Edema Incisions: Sternal incision dressing, dry and intact. No crepitus or sternal instability. Laboratory: LABS: Recent Labs 12/01/17 1343 12/02/17 1630 12/02/17 2100 12/03/17 0200 12/03/17 0404 12/04/17 0353 NA 136* 141 -- -- 141 135* K 3.7 3.9 3.8 4.0 4.4 4.5 CL 103 111* -- -- 112* 105 CO2 25 22 -- -- 22 21 GAP 8 8 -- -- 7 9 BUN 17 15 -- -- 17 25 CR 0.85 0.65 -- -- 0.68 1.18* GLU 304* 166* -- -- 121* 225* CA 9.7 8.4* -- -- 8.7 8.7 ALBUMIN 3.9 -- -- -- -- -- MG -- 3.1* 3.8* -- 3.3* 2.8* Recent Labs 12/01/17 1343 12/02/17 1630 12/03/17 0404 12/04/17 0353 WBC 5.2 7.5 7.8 12.3* HGB 12.4 8.8* 8.8* 8.8* HCT 37.2 25.1* 26.8* 26.2* PLTCT 186 112* 110* 131* INR -- 1.1 -- -- PTT -- 29.3 -- -- AST 13 -- -- -- ALT 9 -- -- -- ALKPHOS 70 -- -- -- Estimated Creatinine Clearance: 47.1 mL/min (A) (based on SCr of 1.18 mg/dL (H)) . Vitals: 12/02/17 2000 12/03/17 0453 12/04/17 0630 Weight: 71.3 kg (157 lb 3 oz) 73.8 kg (162 lb 9.6 oz) 75.8 kg (167 lb) Recent Labs 12/03/17 0200 PHART 7.36 PO2ART 137* Radiology and Other Diagnostic Procedures Review: Reviewed * Annalise Adams RN - 12/04/2017 5:34 AM CDT SR on tele. VSS on RA. Incisions CDI. Pain managed with current PRN regimen. UOP not accurate as pt missed hat. No BM this shift. at bedside. Call light in reach. Will continue to monitor. * Katarzyna Pal RN - 12/03/2017 5:33 PM CDT Pt remains alert and oriented. SR on tele. Pt on room air, working on IS. Hypoactive bowel sounds. Pt voiding, no urine output recorded today from when Block in place, pt has voided 295 mL. Mid-sternal incision with silverlon. ARTURO removed from LLE. Silverlon in place on LLE. Pt reports pain tolerable with oxycodone, tylenol and tramadol. Heating pad ordered for back. Pt able to ambulate x2 in halls today. Will monitor. * Luann Garcia RN - 12/03/2017 2:56 PM CDT Formatting of this note may be different from the original. 12/03/17 1455 Cardiac Rehab Activity Distance Walked (feet) 220 ft BP Pre-activity 108/59 BP Post-activity 119/69 HR Pre-activity 73 bpm HR Post-activity 75 SaO2 Pre-activity 95 % SaO2 Post-activity 99 O2 Device None (Room Air) Comments Pt ambulated with a wheeled walker. Pt tolerated ambulation well Mobility Progressive Mobility Level 8 Level of Assistance Assist X1 (2nd person present for stand by) Assistive Device Walker Time Tolerated 0-10 minutes Activity Limited By No limitations * Luann Garcia RN - 12/03/2017 2:01 PM CDT Formatting of this note may be different from the original. CARDIOPULMONARY REHABILITATION INPATIENT ASSESSMENT Cardiac Rehabilitation Staff: Prachi Garcia RN Discharge Date: Demographics Pre-admit Dx: Coronary Artery Disease Date of Admission: 12/02/2017 Room: [place] [address] : 1955 Insurance: Primary: Medicare Secondary: unknown Address: [address] [place] [id number] Patient (home) Marital Status: Occupation: Unknown ED Contact: Ritesh Burk ED Phone #: [phone] CTS: Iva Queen Producer: [facility] Cardiac Procedures and Events CAB12/02/17 Risk Factors Risk Factors: Obesity, Hyperlipidemia, Diabetes-type II BP: 112/69 Height: 157.5 cm (62.01") Weight: 73.8 kg (162 lb 9.6 oz) BMI (Calculated): 28.74 Medical History has a past medical history of Bilateral carotid artery disease ([facility]) (11/17/2017) ; Cancer ([facility]) (2012); COPD (chronic obstructive pulmonary disease) ([facility]); Coronary artery disease involving [place] coronary artery of [place] heart with unstable angina pectoris ([facility]) (11/17/2017); HARDING (dyspnea on exertion); Essential hypertension (11/17/2017); Gastrointestinal disorder; History of tobacco abuse (11/17/2017); Mixed hyperlipidemia (11/17/2017); Myocardial infarction ([facility]) (04/2017) ; PAD (peripheral artery disease) ([facility]) (11/17/2017); TMJ click; and Type 2 diabetes mellitus with complication, with long-term current use of insulin ([facility] ) (11/17/2017). Labs Cholesterol Date Value Ref Range Status 11/23/2017 193 <200 MG/DL Final Triglycerides Date Value Ref Range Status 11/23/2017 289 (H) <150 MG/DL Final HDL Date Value Ref Range Status 11/23/2017 51 >40 MG/DL Final LDL Date Value Ref Range Status 11/23/2017 87 <100 MG/DL Final Hemoglobin A1C Date Value Ref Range Status 11/23/2017 10.4 (H) 4.0 - 6.0 % Final Comment: The ADA recommends that most patients with type 1 and type 2 diabetes maintain an A1c level <7%. Heart Resource Manual Given: Teaching Completed: Outpatient Cardiopulmonary Rehabilitation OPCR: Referral Faxed to: Date Faxed: Location: If , Sent to Staff: Luann Garcia RN 12/03/2017 * Denise Almaguer, RT - 12/03/2017 1:06 PM CDT Formatting of this note may be different from the original. RESPIRATORY THERAPY ADULT PROTOCOL EVALUATION RESPIRATORY PROTOCOL PLAN Medications Albuterol: MDI PRN Note: If indicated by protocol, medication orders will be placed by therapist. Procedures PEP Therapy: Place a nursing order for "IS Q1h While Awake" for any of Lung Expansion indicators PAP: Place a nursing order for "IS Q1h While Awake" for any of Lung Expansion indicators IPPB: Place a nursing order for "IS Q1h While Awake" for any of Lung Expansion indicators Oxygen/Humidity: Discontinued Monitoring: Discontinued PATIENT EVALUATION RESULTS Chart Review * Pulmonary Hx: Hx pulmonary disease, hx reactive or obstructive airway disease (PEFR & AM) OR regular home use of bronchodilators (AM) OR inhaled or systemic steroid use for lungs < or equal to 4 times/yr (AM) * Surgical Hx: Thoracic or abdominal surgery with reactive or obstructive airway disease (LE) (AM) * Chest X-Ray: Infiltrates (AC) OR atelectasis (LE) OR pleural effusion OR rib fractures (LE) * PFT/Oxygenation: FEV1, PEFR > 80% predicted OR physically unable to perform OR Pa02 >80 RA OR Sp02 >95% RA Patient Assessment * Respiratory Pattern: Regular pattern and rate OR good chest excursion with deep breathing * Breath Sounds: Clear and able to auscultate bases posteriorly * Cough / Sputum: Strong, effective cough OR nonproductive * Mental Status: Alert, oriented, cooperative * Activity Level: Ambulatory with assistance Priority Index Total Points: 10 Points * Priority Index: 2+ PRIORITY INDEX GUIDELINES* Priority Points 1 0-9 points 2 9-18 points 3 > 18 points + Pulm Dx or Home Rx *Higher points indicate higher acuity. Therapist: Denise Almaguer, RT Date: 12/03/2017 Zamudio AC=Airway clearance AM=Aerosolized medication BA=[place] aerosol DB&C=Deep breathe & cough FEV1=Forced expiratory volume in first second) IC=Inspiratory capacity LE=Lung expansion MDI=Metered dose inhaler Neb=Nebulizer O2=Oxygen Oxim=Oximetry PEFR=Peak expiratory flow rate CARDIAC REHABILITATION PROGRAM DIRECTOR=Rapid Response Team * Katarzyna Pal RN - 12/03/2017 11:30 AM CDT Patient arrived on unit via wheelchair accompanied by PORTIA GERBER. Patient transferred to the bathroom and then chair with staff assistance x2. Assessment completed, refer to flowsheet for details. Orders released, reviewed, and implemented as appropriate. Oriented to surroundings, call light within reach. Plan of care reviewed. Will continue to monitor and assess. Pt placed on tele. Vital signs obtained. Pt on room air, RN reviewed use of IS with pt. Mid-sternal incision with silverlon dressing. V wires capped. Hypoactive bowel sounds. Pt able to void 50 mL upon arrival to unit. LLE with ARTURO wrap in place. Pt reports decreased sensation in lower extremities from diabetic neuropathy. 0-10 pain scale reviewed with pt, pain medications reviewed with pt. Pt denies need for pain medication at this time. Insulin drip infusing as ordered. Q 1 blood sugar checks. HFR precautions in place. Will monitor. * Nona Charles, BLASTING ENTRYMAN - 12/03/2017 10:44 AM CDT Formatting of this note may be different from the original. Cardiothoracic Surgery Critical Care Progress Note Nimisha Jaramillo Today's Date: 12/03/2017 Admission Date: 12/02/2017 LOS: 1 day POD: 1 Procedure: BYPASS GRAFT CORONARY ARTERY x3, LEFT INTERNAL MAMMARY ARTERY HARVEST , LEFT ENDOSCOPIC SAPHENOUS VEIN HARVEST: Principal Problem: Coronary artery disease involving [place] coronary artery of [place] heart with unstable angina pectoris (HCC) Active Problems: PAD (peripheral artery disease) (HCC) Essential hypertension Mixed hyperlipidemia History of tobacco abuse Type 2 diabetes mellitus with complication, with long-term current use of insulin (HCC) 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 CV SR, BP 106/54, d/c PA cath, cont ASA 81 mg (hold for plts <80k) and statin. Hold BB and ACEI in the initial post op phase. Intra op AYALA LVEF 45%. 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 Norvasc, spironolactone, isosorbid, lisinopril, metoprolol. Resp Daily CXR bedside interpretation: lungs expanded, left pleural effusion, bibasilar atelectasis, Will await radiology report. On 1L-Wean O2. Initiate IS, aggressive pulm toilet once extubated. Chest tubes plan: d/c today Renal Baseline Scr ~0.6. Monitor BMP, assess for FILIBERTO. 2.9L out, net +788 ml/ 24hrs. GI - ADAT, start post op bowel regimen. ID Continue standard post op antibiotic for prophylaxis, per [facility] protocol. Heme Hold DVT prophylaxis until cleared by CTS, continue mechanical prophylaxis. FEN If creatinine < 2.0, replace Mg and K per CTS post op protocol. Hgb A1c 10.4 %. Insulin gtt per Modified [facility] Protocol-consult endo. Activity Ambulate TID with nursing. Early cardiac PT/OT. Prophylaxis Review: Lines: No Antibiotic Usage: No VTE: Mechanical prophylaxis; Foot pump Urinary Catheter: No Disposition: The patient is post-cardiac surgery at at risk for life threatening deterioration. Patient is critically ill s/p CABG x3 extubated and weaned off medications. Progressing well and felt to appropriate for telemetry status. I have seen, personally fully evaluated, and discussed patient with the critical care attending and cardiothoracic surgeon. The patient is s/p CABG x3. I spent 30 minutes (excluding time spent performing procedures) providing and personally directing critical care services including hemodynamic monitoring and management, lab and radiology review, medication review and management, fluid and electrolyte management and coordination of care. Nona Charles APRN [facility] Intensive Care Pager [phone] 12/03/2017 Subjective: HPI: Nimisha Jaramillo is a 62 y.o. female with a history of insulin-dependent diabetes, hypertension, hypertriglyceridemia, COPD, carotid stenosis and known coronary disease with previous PCI. Her LHC on 12/01/17 showed chronic occlusion of her LAD, an 80% proximal diagonal, 90% mid OM, a 95% distal RCA. She underwent elective CABG today with Dr. Yi and was brought to [facility] ICU for recovery. She was extubated and weaned from support overnight, transitioned to telemetry status POD #1. REVIEW OF SYSTEMS: Constitutional: In no acute distress CV: Denies chest pain or palpitations Resp: Denies increased work of breathing, positive for cough with sputum production GI: Denies nausea or vomiting : Denies urinary retention or dysuria. Objective: Medications: Scheduled Meds: acetaminophen (TYLENOL) tablet 1,000 mg 1,000 mg Oral Q6H* amiodarone (CORDARONE) tablet 400 mg 400 mg Oral BID aspirin chewable tablet 81 mg 81 mg Oral QDAY atorvastatin (LIPITOR) tablet 40 mg 40 mg Oral QDAY ceFAZolin (ANCEF) IVP 1 g 1 g Intravenous Q8H* senna/docusate (SENOKOT-S) tablet 2 tablet 2 tablet Oral BID Continuous Infusions: insulin regular (NOVOLIN R) 100 Units in sodium chloride 0.9% (NS) 100 mL IV drip (std conc) 3 Units/hr (12/03/17 1032) PRN and Respiratory Meds:[START ON 12/07/2017] acetaminophen Q6H PRN OR [ START ON 12/07/2017] acetaminophen Q6H PRN, alum/mag hydroxide/simeth Q4H PRN, bisacodyl QDAY PRN, fentaNYL citrate PF Q1H PRN, hydrALAZINE Q6H PRN, lidocaine PF PRN, milk of magnesia (CONC) QDAY PRN, ondansetron Q6H PRN OR ondansetron Q6H PRN, oxyCODONE Q4H PRN, potassium chloride SR PRN OR potassium chloride PRN OR potassium chloride in water PRN Vital Signs: Last Filed Vital Signs: 24 Hour Range BP: 109/60 (12/03 1000) Temp: 36.6 C (97.9 F) (12/03 0800) Pulse: 67 (12/03 1000) Respirations: 18 PER MINUTE (12/03 999) SpO2: 94 % (12/03 999) O2 Delivery: Nasal Cannula (12/03 06) SpO2 Pulse: 67 (12/03 1000) Height: 157.5 cm (62.01") (12/03 1999) BP: (99-126)/(54-70) ABP: (95-127)/(44-65) Temp: [35.6 C (96.1 F)-36.8 C (98.2 F)] Pulse: [67-85] Respirations: [10 PER MINUTE-26 PER MINUTE] SpO2: [94 %-100 %] O2 Delivery: Nasal Cannula Intensity Pain Scale 0-10 (Pain 1): 4 (12/03/17 0800) Vitals: 12/02/17 0810 12/02/17199912/03/17 0453 Weight: 71.3 kg (157 lb 3 oz) 71.3 kg (157 lb 3 oz) 73.8 kg (162 lb 9.6 oz) Intake/Output Summary: (Last 24 hours) Intake/Output Summary (Last 24 hours) at 12/03/17 1045 Last data filed at 12/03/17 0900 Gross per 24 hour Intake 4257.01 ml Output 3518 ml Net 739.01 ml Physical Exam: Neuro: GONZALEZ Cardiovascular: RRR no rub or murmur Respiratory: LS CTA cat - diminished in the bases GI: soft, NT, hypoactive BS Extremities: No Edema Incisions: Sternal incision dressing, dry and intact. No crepitus or sternal instability. Chest Tubes OUTPUT/24 HOURS AIR LEAK PRESENT Mediastinal 116 No Mediastinal Pleural 161 No Pleural Laboratory: LABS: Recent Labs 12/01/17 1343 12/02/17 1630 12/02/17 2100 12/03/17 0200 12/03/17 0404 NA 136* 141 -- -- 141 K 3.7 3.9 3.8 4.0 4.4 CL 103 111* -- -- 112* CO2 25 22 -- -- 22 GAP 8 8 -- -- 7 BUN 17 15 -- -- 17 CR 0.85 0.65 -- -- 0.68 GLU 304* 166* -- -- 121* CA 9.7 8.4* -- -- 8.7 ALBUMIN 3.9 -- -- -- -- MG -- 3.1* 3.8* -- 3.3* Recent Labs 12/01/17 1343 12/02/17 1630 12/03/17 0404 WBC 5.2 7.5 7.8 HGB 12.4 8.8* 8.8* HCT 37.2 25.1* 26.8* PLTCT 186 112* 110* INR -- 1.1 -- PTT -- 29.3 -- AST 13 -- -- ALT 9 -- -- ALKPHOS 70 -- -- Estimated Creatinine Clearance: 78.4 mL/min (based on SCr of 0.68 mg/dL). Vitals: 12/02/17 0810 12/02/17 2000 12/03/17 0453 Weight: 71.3 kg (157 lb 3 oz) 71.3 kg (157 lb 3 oz) 73.8 kg (162 lb 9.6 oz) Recent Labs 12/03/17 0200 PHART 7.36 PO2ART 137* Radiology and Other Diagnostic Procedures Review: Reviewed * Tete Chacko, PORTIA - 12/03/2017 9:20 AM CDT Patient walked 150ft. Tolerated well with no dizziness or nausea. SPB stable throughout walk. CTS dumped 14mls. Will continue to monitor. * Tete Chacko, PORTIA - 12/03/2017 8:00 AM CDT Patient assessment complete. Patient alert and oriented x4. GONZALEZ To command. Denies numbness and tingling. Pain 4/10 in lower back, tylenol given. PERRL. S1S2 heard. NSR in the 70's. SBP 120's. Pulses palpable. Trace edema. Lungs clear/diminished. Sp02> 93% on RA. Abdomen soft nontender. Urine output marginal. Current gtts: insulin and NS. Will continue to monitor. * Philomena Leon, PORTIA - 12/03/2017 5:23 AM CDT 0445 pt dangle at edge of bed and stand; assistx1, tolerated well with slight drop in BPs, recovered within a few minutes. No c/o nausea, dizziness. Pt able to step up to standing scale for daily weight. Pt back to bed. CT output minimal during activity. See flowsheet for details. Orders received to pull PA catheter. * Philomena Leon, PORTIA - 12/03/2017 4:21 AM CDT Reassessment complete; pt A&Ox4, voice intact, chronic back pain 10/10 treated with po oxycodone and tylenol along with repositioning. No c/o N/T, GONZALEZ equally. Lungs CTA, PC with minimal secretions noted. HR 60s-70s, sinus; SBP 90s-110s, no pressors needed at this time; PAPs 20s/10s, CVP <10, CI per CHAPARRO 2.70. CTx2 meds with min amt SS output, L pl CT to bulb suction with min amt sanguinous output. Block with AUOP overnight. Infusing: Insulin and NS * Sho Leiva, RT - 12/03/2017 1:20 AM CDT Formatting of this note may be different from the original. RESPIRATORY THERAPY ADULT PROTOCOL EVALUATION RESPIRATORY PROTOCOL PLAN Medications Note: If indicated by protocol, medication orders will be placed by therapist. Procedures PEP Therapy: Q4h PEP While Awake PAP: Q4h PAP While Awake IPPB: Place a nursing order for "IS Q1h While Awake" for any of Lung Expansion indicators Oxygen/Humidity: O2 to keep SpO2 > 92% Monitoring: Pulse oximetry BID & PRN Comment: denies IDALIA PATIENT EVALUATION RESULTS Chart Review * Pulmonary Hx: Hx pulmonary disease, hx reactive or obstructive airway disease (PEFR & AM) OR regular home use of bronchodilators (AM) OR inhaled or systemic steroid use for lungs < or equal to 4 times/yr (AM) * Surgical Hx: Thoracic or abdominal surgery/injury (LE) * Chest X-Ray: Chronic, stable radiographic changes OR abnormal * PFT/Oxygenation: FEV1, PEFR < 70% OR Pa02 < 70 RA OR Sp02 <92% RA OR Fi02 > 0.21 to keep Sp02 > 92% OR < 24 hours post-op (02 & oxim) OR chronic C02 retention (C02) Patient Assessment * Respiratory Pattern: Regular pattern and rate OR good chest excursion with deep breathing * Breath Sounds: Clear and able to auscultate bases posteriorly * Cough / Sputum: Strong, effective cough OR nonproductive * Mental Status: Alert, oriented, cooperative * Activity Level: Ambulatory with assistance Priority Index Total Points: 10 Points * Priority Index: 2 PRIORITY INDEX GUIDELINES* Priority Points 1 0-9 points 2 9-18 points 3 > 18 points + Pulm Dx or Home Rx *Higher points indicate higher acuity. Therapist: Sho Leiva RT Date: 12/03/2017 Zamudio AC=Airway clearance AM=Aerosolized medication BA=[place] aerosol DB&C=Deep breathe & cough FEV1=Forced expiratory volume in first second) IC=Inspiratory capacity LE=Lung expansion MDI=Metered dose inhaler Neb=Nebulizer O2=Oxygen Oxim=Oximetry PEFR=Peak expiratory flow rate CARDIAC REHABILITATION PROGRAM DIRECTOR=Rapid Response Team * Philomena Leon RN - 12/03/2017 12:26 AM CDT 0016 CPAP trial started 0053 Post trial ABG within parameters to extubate; notified Giovanni Zacarias, AUNG and orders received ok to extubate. 0100 Extubated to 2L o2 per NC by RT, voice clear, pt orientedx4, c/o back pain and request for repositioning. Educated patient on use of heart pillow as well as when ice chips/water could be started. Will continue to monitor * Philomena Leon RN - 12/03/2017 12:12 AM CDT Patient continues to have intermittent nausea with large amounts of green OG output. Notified Giovanni Zacarias, OXYGRAPH OPERATOR and orders received for one time dose of reglan IV. * Philomena Leon RN - 12/02/2017 11:10 PM CDT 2244 Notified Giovanni Zacarias NP of CI <2; orders to draw mixed venous SvO2. 0: Svo2 back at 62.9, CHAPARRO calculation obtained and CI 2.82. Notified Giovanni Zacarias NP and orders to monitor and recheck SvO2/CHAPARRO with AM labs. * Philomena Leon RN - 12/02/2017 9:23 PM CDT 2118 CPAP trial started by RT 8 pt apneic several times, placed back on settings by RT; plan to retrial at 2200 2200 Pt started back on CPAP trial 2239 multiple MV low alarms, ABG drawn and pH out of range; Giovanni Zacarias NP notified and pt placed on AC-MMV for an hour. * Philomena Leon RN - 12/02/2017 9:07 PM CDT Hemodynamic Profile as below: CI: 1.65 SVI 22.9 CVP: 6 SVRI: 3398 PAP: 20/11 (15) Notified Giovanni Zacarias NP; orders to administer additional 250mL of 5% albumin at this time. * Philomena Leon RN - 12/02/2017 8:12 PM CDT Pt assessment complete; pt intubated at this time, PERRL, wakes up to spontaneously, GONZALEZ, follows commands, no sedation at this time. HR 70s, sinus, SBP 90s-100s, MAP>65, PAP 10s/<10, CVP <10, CI 1.73. Pt c/o nausea with moderate amt of green output from OG, zofran x2 administered per Giovanni Zacarias NP. Block with AUOP. CTx2 meds with min sanguinous output and L pl CT to bulb suction with min sanguinous output. Infusing: NS, Insulin, Mg replacement. Notified Giovanni Zacarias NP of low CI, orders to administer 250mL 5% albumin at this time. * Lora Acuna, RN - 12/02/2017 4:52 PM CDT CI 1.8, SV 39.9. Orders for 250 mL albumin bolus obtained. * Shelley Yousif, BLASTING ENTRYMAN - 12/02/2017 4:35 PM CDT Formatting of this note may be different from the original. Cardiothoracic Surgery Critical Care Progress Note Nimisha Jaramillo Today's Date: 12/02/2017 Admission Date: 12/02/2017 LOS: 0 days POD: Procedure: BYPASS GRAFT CORONARY ARTERY x3, LEFT INTERNAL MAMMARY ARTERY HARVEST , LEFT ENDOSCOPIC SAPHENOUS VEIN HARVEST: Principal Problem: Coronary artery disease involving [place] coronary artery of [place] heart with unstable angina pectoris ([facility]) Active Problems: PAD (peripheral artery disease) ([facility]) Essential hypertension Mixed hyperlipidemia History of tobacco abuse Type 2 diabetes mellitus with complication, with long-term current use of insulin ([facility]) 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 Continue PRN Fentanyl, oxycodone with scheduled Tylenol. CV SR, BP 116/56, CI 1.58, PA 16/10, CVP 2. IVF PRN, 250mL albumin ordered on arrival. Current gtts: nitroglycerin for BP management. Cont ASA 81 mg (hold for plts <80k) and statin. Hold BB and ACEI in the initial post op phase. Intra op AYALA LVEF 45%. Resp Daily CXR bedside interpretation: lungs expanded, left pleural effusion, bibasilar atelectasis, PAC/ETT/CT in position. Will await radiology report. ABG 7.49/33/299/25. Wean O2. Initiate IS, aggressive pulm toilet once extubated. Chest tubes plan: closely monitor output post-op. Renal Baseline Scr ~0.6. Monitor BMP, assess for FILIBERTO. GI - ADAT, GI prophylaxis while intubated, start post op bowel regimen on POD 1. ID Continue standard post op antibiotic for prophylaxis, per CTS protocol. Heme Check post op CBC/coags, assess for coagulopathy. Hold DVT prophylaxis until cleared by CTS, continue mechanical prophylaxis. FEN If creatinine < 2.0, replace Mg and K per CTS post op protocol. Hgb A1c 10.4 %. Insulin gtt per Modified Rives Protocol. Activity HOB to 30 degrees over 1st postop hour. Bedrest until extubated, dangle 6 hours after extubation. Early cardiac PT/OT. Prophylaxis Review: Lines: Yes; Arterial Line; Indication: Continuous BP monitoring; Location: Radial Central Line; Indication: Med not deliverable peripherally, Incompatability of meds and Hemodynamic monitoring; Type: Internal jugular Antibiotic Usage: No VTE: Mechanical prophylaxis; Foot pump Urinary Catheter: Yes; Retain block due to: Need for accurate Intake and Output Disposition: The patient is post-cardiac surgery at at risk for life threatening deterioration. Patient is critically ill s/p CABG x3 requiring mechanical ventilation. I have seen, personally fully evaluated, and discussed patient with the critical care attending and cardiothoracic surgeon. The patient is critically ill s/p CABG x3. I spent 75 minutes (excluding time spent performing procedures ) providing and personally directing critical care services including direct OR recovery, ventilator management, hemodynamic monitoring and management, lab and radiology review, medication review and management, fluid and electrolyte management and coordination of care. Shelley Yousif APRN [facility] Intensive Care Pager [phone] 12/02/2017 Subjective: HPI: Nimisha Jaramillo is a 62 y.o. female with a history of insulin-dependent diabetes, hypertension, hypertriglyceridemia, COPD, carotid stenosis and known coronary disease with previous PCI. Her LHC on 12/01/17 showed chronic occlusion of her LAD, an 80% proximal diagonal, 90% mid OM, a 95% distal RCA. She underwent elective CABG today with Dr. Yi and was brought to [facility] ICU post-operatively for further management. REVIEW OF SYSTEMS: Review of systems not obtained from patient due to patient factors. Objective: Medications: Scheduled Meds: acetaminophen (TYLENOL) tablet 1,000 mg 1,000 mg Oral Q6H* [START ON 12/03/2017] amiodarone (CORDARONE) tablet 400 mg 400 mg Oral BID aspirin chewable tablet 81 mg 81 mg Oral QDAY atorvastatin (LIPITOR) tablet 40 mg 40 mg Oral QDAY ceFAZolin (ANCEF) IVP 1 g 1 g Intravenous Q8H* famotidine (PEPCID) tablet 20 mg 20 mg Oral BID Or famotidine (PEPCID) injection 20 mg 20 mg Intravenous BID magnesium sulfate 4 g/50 mL IVPB 4 g Intravenous ONCE ondansetron (ZOFRAN) injection 4 mg 4 mg Intravenous ONCE [START ON 12/03/2017] senna/docusate (SENOKOT-S) tablet 2 tablet 2 tablet Oral BID Continuous Infusions: aminocaproic acid (AMICAR) 12.5 g in sodium chloride 0.9% (NS) IV infusion Stopped (12/02/17 1855) dexmedetomidine (PRECEDEX) 400 mcg in sodium chloride 0.9% (NS) 100 mL IV infusion Stopped (12/02/17 1709) insulin regular (NOVOLIN R) 100 Units in sodium chloride 0.9% (NS) 100 mL IV drip (std conc) 2 Units/hr (12/02/17 1914) niCARdipine (cardENE) 20 mg/NS 200 mL infusion (std conc)(premade) Stopped (12/02/17 1835) nitroGLYCERIN 50 mg/D5W 250 mL infusion Stopped (12/02/17 1720) norepinephrine (LEVOPHED) 4 mg in dextrose 5% (D5W) 250 mL IV drip (std conc ) sodium chloride 0.9 % infusion 30 mL/hr at 12/02/17 1934 PRN and Respiratory Meds:[START ON 12/07/2017] acetaminophen Q6H PRN OR [ START ON 12/07/2017] acetaminophen Q6H PRN, alum/mag hydroxide/simeth Q4H PRN, atropine Once PRN, bisacodyl QDAY PRN, fentaNYL citrate PF Q1H PRN, hydrALAZINE Q6H PRN, lidocaine PF PRN, midazolam Q1H PRN, milk of magnesia (CONC) QDAY PRN, ondansetron Q6H PRN OR ondansetron Q6H PRN, oxyCODONE Q4H PRN, potassium chloride SR PRN OR potassium chloride PRN OR potassium chloride in water PRN Vital Signs: Last Filed Vital Signs: 24 Hour Range BP: 126/70 (12/02 1100) Temp: 36.6 C (97.9 F) (12/02 1899) Pulse: 71 (12/02 1899) Respirations: 17 PER MINUTE (12/02 1899) SpO2: 100 % (12/02 1899) O2 Delivery: Endotracheal Tube (Oral) (12/02 1899) SpO2 Pulse: 71 (12/02 1899) BP: (126-144)/(58-76) ABP: (99-127)/(44-65) Temp: [35.6 C (96.1 F)-36.8 C (98.2 F)] Pulse: [71-85] Respirations: [12 PER MINUTE-23 PER MINUTE] SpO2: [95 %-100 %] O2 Delivery: Endotracheal Tube (Oral) Vitals: 12/02/17 0810 Weight: 71.3 kg (157 lb 3 oz) Intake/Output Summary: (Last 24 hours) Intake/Output Summary (Last 24 hours) at 12/02/171951 Last data filed at 12/02/171899 Gross per 24 hour Intake 3014.61 ml Output 2240 ml Net 774.61 ml Physical Exam: Neuro: Sedated, GONZALEZ Cardiovascular: RRR no rub or murmur Respiratory: LS CTA cat - diminished in the bases GI: soft, NT, hypoactive BS Extremities: No Edema Incisions: Sternal incision dressing, dry and intact. No crepitus or sternal instability. Chest Tubes OUTPUT/24 HOURS AIR LEAK PRESENT Mediastinal Mediastinal Pleural Pleural Artificial airway: Endotracheal Tube Vent weaning trial: Per protocol Laboratory: LABS: Recent Labs 12/01/17 1343 12/02/17 1630 NA 136* 141 K 3.7 3.9 CL 103 111* CO2 25 22 GAP 8 8 BUN 17 15 CR 0.85 0.65 GLU 304* 166* CA 9.7 8.4* ALBUMIN 3.9 -- MG -- 3.1* Recent Labs 12/01/17 1343 12/02/17 1630 WBC 5.2 7.5 HGB 12.4 8.8* HCT 37.2 25.1* PLTCT 186 112* INR -- 1.1 PTT -- 29.3 AST 13 -- ALT 9 -- ALKPHOS 70 -- Estimated Creatinine Clearance: 77.1 mL/min (based on SCr of 0.65 mg/dL). Vitals: 12/02/17 0810 Weight: 71.3 kg (157 lb 3 oz) No results for input(s): PHART, PO2ART in the last 72 hours. Invalid input(s): PC02A Radiology and Other Diagnostic Procedures Review: Reviewed * Lora Acuna, PORTIA - 12/02/2017 4:15 PM CDT 1600: Pt to CTI 7. Pt remains sedated, SR, HR:70-80's. Nitro @ 0.75. PAs:10/ single digits, CVP: ~4. Lung sounds clear throughout lung chaidez. Placed on ventilator, A/C, TV:500, RR:15, PEEP:5, FiO2 100%. SpO2 100%. Bowel sounds hypoactive. OG placed and connected to LIWS. L plural chest tube to bulb suction. Mediastinal chest tubes to -20 mmHg suction, all tubes draining sanguinous drainage. Incisions dressed, dressings C/D/I. other gtts: AA @ 2 g/hr Precedex @ 0.7 NS @ 30 1615: CI:1.58, SV 30's. Orders for 250 mL albumin bolus. in this encounter H&P Notes * Italo Russo PA-C - 12/02/2017 8:40 AM CDT Formatting of this note may be different from the original. History and Physical Update Note Name: Nimisha [facility] Allergies: Fish containing products; Ketoprofen; Mushroom; and Penicillins Primary Care Physician: Ashley Banegas Verified Lab/Radiology/Other Diagnostic Tests: 24-hour labs: Results for orders placed or performed during the hospital encounter of (from the past 24 hour(s)) POC GLUCOSE Collection Time: 12/02/17 8:22 AM Result Value Ref Range Glucose, POC 102 (H) 70 - 100 MG/DL Last Dose Beta Blockers/Anticoagulants: Last dose of Beta Heather: Date 12/02/17 Point of Care Testing: (Last 24 hours): POC Glucose (Download): (!) 102 (12/02/17 0840) I have examined the patient, and the following changes are noted from the previous H&P performed on 11/25/17. Mrs. Jaramillo had several teeth removed during her previous hospitalization and her case was postponed to allow healing. She denies any issues since then. Her last dose of Plavix was 11/23/17. 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 The original H&P below was performed and dictated by Dr. Iva Russo PA-C Pager [phone] Attestation signed by Jeimy Yi MD at 11/25/17 9475 I appreciate the consult. I met and examined the patient and reviewed the pertinent studies with her and her . She is a pleasant 60-year-old female with a history of insulin-dependent diabetes, hypertension, hypertriglyceridemia, COPD, carotid stenosis and known coronary disease with previous PCI. She has a CT over LAD was unable to be opened today. She also has multivessel coronary disease. She reports stable angina that is been present for several weeks. She is not a very active individual. Her cath today shows chronic occlusion of her LAD, an 80% proximal diagonal, 90 % mid OM, a 95% distal RCA. Echo is pending at this time. On exam she is still slightly sedated but oriented and participating the conversation. Her lung chaidez are clear and she does not have a murmur. Her abdomen is obese nontender nondistended. She has 1+ peripheral edema. I reviewed the risks and benefits of coronary bypass surgery. Risks include bleeding, infection, stroke, . She is expressed understanding and is willing to proceed. She has significant dental issues and will require extraction. We are also going to check her platelet function testing she has been on Plavix continuously. Anticipate CABG later this week or next week. I appreciate the opportunity to participate in the care of this nice lady. Reji Yi M.D. CTS CONSULT Date of Service: 11/23/2017 Requesting Physician: Dr. Cortes Consulting Physician: Dr. Yi Consult Performed By: Dakota Russo PA-C HPI: Mrs. 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 Dr. Cortes consulted CTS for evaluation for surgical revascularization after [facility] today revealed severe, multivessel CAD in a diabetic patient. Overall, Mrs. Jaramillo has been having intermittent chest discomfort with activity and occasionally at rest. This discomfort has remained stable over the last several months and has not increased in severity or frequency. She states she does minimal activity and tends to avoid ambulating up a flight of stairs. Her family history of significant for her mother and maternal grandparents having CAD and open heart surgery. She is a former smoker and quit smoking tobacco in January 2017. She occasionally smokes marijuana and reveals she smoked a few days ago. She last took her plavix on 11/22/17. Cardiothoracic consultation has been requested to determine if the patient is a surgical candidate for CABG. Cardiac presentation on admission: stable angina STS RISK: (preliminary) Procedure: CAB Only Risk of Mortality: 0.799% Morbidity or Mortality: 9.075% Long Length of Stay: 3.717% Short Length of Stay: 49.535% Permanent Stroke: 0.907% Prolonged Ventilation: 6.179% DSW Infection: 0.487% Renal Failure: 1.008% Reoperation: 3.351% CATH FINDINGS: Coronary Stenosis LAD--> POTATO PEELING MACHINE OPERATOR Diag--> 80% proximal OM --> 70% ostial, 90% mid RCA--> 95% distal PMH: Past Medical History: Diagnosis Date Bilateral carotid artery disease (HCC) 11/17/2017 05/04/17 - Carotid U/S: mild 1-39% stenosis, nonobstructive disease bilaterally. Coronary artery disease involving [place] coronary artery of [place] heart with unstable angina pectoris (HCC) 11/17/2017 03/04/17 - LHC: Total occlusion of the mid LAD, balloon angioplasty using 2 different sized balloons. No reestablishment of flow. Appears the artery is diffusely diseased & occluded. Proximal portion has severe disease - balloon angioplasty with slight improvement. Severe disease at mid and distal circumflex - fairly small artery. Patent stent in large dominant RCA. Normal LV , EF 60%, normal LVEDP. Essential hypertension 11/17/2017 History of tobacco abuse 11/17/2017 Mixed hyperlipidemia 11/17/2017 PAD (peripheral artery disease) ([facility]) 11/17/2017 Type 2 diabetes mellitus with complication, with long-term current use of insulin ([facility]) 11/17/2017 PSH: Past Surgical History: Procedure Laterality Date CARPAL TUNNEL RELEASE CHOLECYSTECTOMY KNEE ARTHROSCOPY LEEP PROCEDURE cervix TUBAL LIGATION Medicatons: amLODIPine (NORVASC) tablet 10 mg 10 mg Oral QDAY [START ON 11/24/2017] aspirin EC tablet 81 mg 81 mg Oral QDAY aspirin tablet 325 mg 325 mg Oral ONCE atorvastatin (LIPITOR) tablet 40 mg 40 mg Oral QDAY insulin aspart U-100 (NOVOLOG FLEXPEN) injection PEN 0-7 Units 0-7 Units Subcutaneous ACHS insulin detemir(+) (LEVEMIR) injection 80 Units 80 Units Subcutaneous BID before meals insulin lispro(+) (HUMALOG) injection 60 Units 60 Units Subcutaneous QHS isosorbide mononitrate SR (IMDUR) tablet 30 mg 30 mg Oral QAM8 lisinopril (PRINIVIL; ZESTRIL) tablet 20 mg 20 mg Oral QDAY metoprolol XL (TOPROL XL) tablet 100 mg 100 mg Oral QDAY Allergies: Allergies Allergen Reactions Fish Containing Products UNKNOWN Ketoprofen UNKNOWN Mushroom UNKNOWN Family History: Family History Problem Relation Age of Onset Hypertension Mother Heart Disease Mother Kidney Cancer Mother Heart Disease Father Social History: Social History Social History Marital status: Spouse name: N/A Number of children: N/A Years of education: N/A Social History Main Topics Smoking status: Former Smoker Quit date: 01/23/2017 Smokeless tobacco: Never Used Alcohol use No Drug use: Yes Types: Marijuana Comment: rarely Sexual activity: Not on file Other Topics Concern Not on file Social History Narrative No narrative on file ROS: Constitutional: Negative for Fatigue, Weight Change, Fevers Eyes, Ears, Nose And Throat: Negative for Change in vision, Change in Hearing Cardiovascular: Positive for episodes of chest discomfort, Negative for Palpitations, Swelling in ankles Respiratory: Negative for Cough, Shortness of Breath, wheezing Gastrointestinal: Negative for Nausea, indigestion, Diarrhea, Constipation Neurological: Negative for Headache, Memory problems, Numbness, Muscle Weakness Psychological: Negative for depression or anxiety Musculoskeletal: Negative for Pain or Swelling in joints Genitourinary: Negative for Pain with urination, Incontinence of urine, urinary frequency Skin: Negative for any unusual rash Endocrine: Negative for Any hair skin or nail changes, Unusual hunger or thirst Physical Exam: Temp: 36.7 C (98.1 F) (11/23 0840) Pulse: 78 (11/23 1145) Respirations: 17 PER MINUTE (11/23 1145) BP: 137/74 (11/23 1145) GENERAL: A&O x 3, NAD. HEENT Head: Normocephalic Teeth: Poor dentition NECK Active ROM: full Trachea: midline HEART Neck Veins- No JVD Carotid Arteries: No bruits Cardiac: RRR with normal S1, S2. No murmurs LUNGS Auscultation- breath sounds CTA bilaterally ABDOMEN Soft, NT + BS EXTREMITIES Edema- No edema Posterior Tibial- 2+ cat Dorsalis Pedis- 2+ cat SKIN: Normal, without lesions NEUROLOGIC A&O x 3 Grossly intact Results for orders placed or performed during the hospital encounter of (from the past 24 hour(s)) LIPID PROFILE Collection Time: 11/23/17 8:48 AM # # Low-High Cholesterol 193 <200 MG/DL Triglycerides 289 (H) <150 MG/DL HDL 51 >40 MG/DL LDL 87 <100 MG/DL VLDL 58 MG/DL Non HDL Cholesterol 142 MG/DL POC GLUCOSE Collection Time: 11/23/17 8:48 AM # # Low-High Glucose, POC 297 (H) 70 - 100 MG/DL POC GLUCOSE Collection Time: 11/23/17 9:49 AM # # Low-High Glucose, POC 272 (H) 70 - 100 MG/DL POC GLUCOSE Collection Time: 11/23/17 11:29 AM # # Low-High Glucose, POC 219 (H) 70 - 100 MG/DL Impression: Active Hospital Problems Diagnosis Coronary artery disease involving [place] coronary artery of [place] heart with unstable angina pectoris (HCC) 03/05/17 [facility]: Total occlusion of the mid LAD, balloon angioplasty using 2 different sized balloons. No reestablishment of flow. Appears the artery is diffusely diseased & occluded. Proximal portion has severe disease - balloon angioplasty with slight improvement. Severe disease at mid and distal circumflex - fairly small artery. Patent stent in large dominant RCA. Normal LV , EF 60%, normal LVEDP. 06/16/16 [facility]: Severe in-stent restenosis in prox and [...] circumflex, fairly small artery. Normal LVEDP. 06/2015 [facility]: 2.5 x 18 mm Resolute Integrity stent to mid circumflex, prox lesion is 40% stenosed, distal lesion 80%. Patent multiple stents in prox, mid, and distal LAD w/ mild in-stent restenosis. Patent stent in RCA w/ mild disease in distal RCA. 05/2015 [facility]: 3.5 x 12 mm & 2.75 x 24 mm Promus Premier overlapping stents to mid RCA. Patent stents in the LAD. Severe stenosis at distal LAD, 70% prox circumflex and 70-80% mid to distal circ/OM branch. [facility]: 2.5 x 24 mm and 2.5 x 20 mm Promusto distal and proximal LAD, 50% prox circumflex, 70-80% mid to distal circumflex involving the proximal portion of OM1, 50-60% mid RCA, LV anterior wall hypokinetic. EF 40%. Essential hypertension Mixed hyperlipidemia History of tobacco abuse Type 2 diabetes mellitus with complication, with long-term current use of insulin ([facility]) Plan: Dr. Yi has reviewed all of the patient's preop testing. He agrees that surgical intervention is the most appropriate course of action. The entire procedure, risks, benefits, alternatives, and complications have been discussed. Potential risks include but are not limited to infection, arrhythmias , bleeding requiring re-operation, prolonged intubation, ARF requiring hemodialysis, CVA, HI, and possibly even . The patient understands, accepts , and wishes to proceed. Will obtain pre-op testing today including: Echo, carotid US, complete PFTs, CXR , UA, BNP, INR/ptt, type and screen (ordered). Will hold plavix from today and check platelet inhibition (ordered). Plan for CABG on 11/27/17, 2nd case. Mrs. Jaramillo will need to complete testing prior to discharge today and she will need to be sent with chlorhexidine soap. She will receive a phone call from Dr. Yi's clinic with further instructions on timing of arrival for Thursday. Italo Russo PA-C [id number] in this encounter Consult Notes * Jennifer Oshea RN - 12/08/2017 12:46 PM CDT Associated Order(s): CONSULT DIABETES NURSE EDUCATOR INPATIENT DIABETES EDUCATION TEAM [facility] Reason for Consult: Lifestyle Modifications Discussed Consult with Primary Team: Patient may benefit from: Referral to Cardiac Rehab when pt can increase activity in controlled environment This consult team does not write orders. Primary Team is responsible for placing orders. Attempted to meet with pt but pt resting and did not respond to gentle touch or call of her name. This educator visited with pt during admission on 11/24. At that time discussed use of insulin, importance of taking medications and monitoring BG as well as dietary changes. Will attempt to visit pt again prior to discharge to ask about her progress on above topics and answer any new questions she may have. * Eugenia Gutierrez MBBS - 12/03/2017 12:49 PM CDT Associated Order(s): CONSULT ENDOCRINOLOGY PHYSICIAN Formatting of this note may be different from the original. 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 regimen: Levemir 35 units daily, NovoLog 10 units with meals, mid dose correction factor Hypoglycemic episodes on this regimen: None but fasting glucose was between 70-90 Follows up with for diabetes management: PCP at [place], [place] Diabetic-complications assessment: Retinopathy: Yes Peripheral neuropathy: Yes Autonomic neuropathy: no Nephropathy: Not known Macrovascular complications: CAD Risk factor assessment: Last lipid profile - On ACEi/ARB?:yes On Statin?: yes Coronary artery disease: Status post CABG on 12/02/2017 Hypertension Hyperlipidemia COPD Recommendations: Patient is doing well after CABG and we will attempt to transition her off insulin drip later today. Based on her overnight insulin drip requirement, we will give Lantus 20 units tonight, insulin drip to be turned off 2 hours after first dose of Lantus. Patient has started eating solids however her appetite is not predictable yet. We will give 4 units of NovoLog postmeal, based on percentage of meal eaten. We will start mid dose correction factor before meals and bedtime, once patient is off insulin drip. We will restart metformin once patient is eating well. Thanks for the consult, we will continue to follow. Patient was seen and discussed with Dr. Tatum. History of Present Illness Nimisha Jaramillo is a 62 y.o. female with past medical history of type 2 diabetes, COPD, hypertension, hyperlipidemia, coronary artery disease was admitted for CABG. She had CABG on 12/02/2017. Endocrinology was consulted for help with diabetes. Patient is known to our service as we saw her last week briefly for diabetes, when she was being worked up in preparation for CABG. At that time it was noted that her prior to admission insulin regimen and use was highly inappropriate. Discharged with Levemir 35 units every night, NovoLog 10 units with meals and mid dose correction factor. Patient started using this regimen when she went home. Fasting glucose was between 70-90, prandial glucose between 120-160. She denies any symptoms of hypoglycemia. Patient was also seen by adaptive physical educator at the last visit and it appears that taper using insulin and doing home glucose monitoring appropriately prior to this admission. Patient had CABG on 12/02/2017. She is feeling okay, she has started eating solid food now, although her appetite is not back. No nausea or vomiting. Estimated Creatinine Clearance: 78.4 mL/min (based on SCr of 0.68 mg/dL). Past Medical History Past Medical History: Diagnosis Date Bilateral carotid artery disease (HCC) 11/17/2017 05/04/17 - Carotid U/S: mild 1-39% stenosis, nonobstructive disease bilaterally. Cancer (HCC) 2012 Cervical COPD (chronic obstructive pulmonary disease) (HCC) Coronary artery disease involving [place] coronary artery of [place] heart with unstable angina pectoris ([facility]) 11/17/2017 03/04/17 - [facility]: Total occlusion of the mid LAD, balloon angioplasty using 2 different sized balloons. No reestablishment of flow. Appears the artery is diffusely diseased & occluded. Proximal portion has severe disease - balloon angioplasty with slight improvement. Severe disease at mid and distal circumflex - fairly small artery. Patent stent in large dominant RCA. Normal LV , EF 60%, normal LVEDP. HARDING (dyspnea on exertion) Essential hypertension 11/17/2017 Gastrointestinal disorder History of tobacco abuse 11/17/2017 Mixed hyperlipidemia 11/17/2017 Myocardial infarction ([facility]) 04/2017 PAD (peripheral artery disease) ([facility]) 11/17/2017 TMJ click Type 2 diabetes mellitus with complication, with long-term current use of insulin ([facility]) 11/17/2017 Past Surgical History Past Surgical History: Procedure Laterality Date TOOTH EXTRACTION Bilateral 11/24/2017 EXTRACTION TEETH #6, 7, 8, 9, 10, 11, 14, 22-27 performed by Dena Gayle DDS at [facility] CORONARY ARTERY BYPASS GRAFT N/A 12/02/2017 BYPASS GRAFT CORONARY ARTERY x3, LEFT INTERNAL MAMMARY ARTERY HARVEST, LEFT ENDOSCOPIC SAPHENOUS VEIN HARVEST performed by Jeimy Yi MD at [facility] CARDIAC SURGERY Total of 13 stents CARPAL TUNNEL RELEASE CHOLECYSTECTOMY HX HYSTERECTOMY KNEE ARTHROSCOPY LEEP PROCEDURE cervix TUBAL LIGATION Social History Social History Substance Use Topics Smoking status: Former Smoker Packs/day: 1.00 Years: 45.00 Quit date: 01/23/2017 Smokeless tobacco: Never Used Alcohol use No Family History Family History Problem Relation Age of Onset Hypertension Mother Heart Disease Mother Kidney Cancer Mother Heart Disease Father Allergies Allergies Allergen Reactions Fish Containing Products HIVES and EDEMA Ketoprofen EDEMA Tongue swelling Mushroom SEE COMMENTS Doesn't agree with her Penicillins STOMACH UPSET Review of Systems A comprehensive 14-point review of systems was negative except HPI Medications Scheduled Meds: acetaminophen (TYLENOL) tablet 1,000 mg 1,000 mg Oral Q6H* amiodarone (CORDARONE) tablet 400 mg 400 mg Oral BID aspirin chewable tablet 81 mg 81 mg Oral QDAY atorvastatin (LIPITOR) tablet 40 mg 40 mg Oral QDAY ceFAZolin (ANCEF) IVP 1 g 1 g Intravenous Q8H* lidocaine (LIDODERM) 5 % topical patch 1-2 patch 1-2 patch Topical QDAY senna/docusate (SENOKOT-S) tablet 2 tablet 2 tablet Oral BID Continuous Infusions: insulin regular (NOVOLIN R) 100 Units in sodium chloride 0.9% (NS) 100 mL IV drip (std conc) 1 Units/hr (12/03/17 1313) PRN and Respiratory Meds:[START ON 12/07/2017] acetaminophen Q6H PRN OR [ START ON 12/07/2017] acetaminophen Q6H PRN, alum/mag hydroxide/simeth Q4H PRN, bisacodyl QDAY PRN, hydrALAZINE Q6H PRN, lidocaine PF PRN, milk of magnesia ( CONC) QDAY PRN, ondansetron Q6H PRN OR ondansetron Q6H PRN, oxyCODONE Q4H PRN, potassium chloride SR PRN OR potassium chloride PRN OR potassium chloride in water PRN, traMADol Q6H PRN Physical Examination Vital Signs: Last Vital Signs: 24 Hour Range BP: 112/69 (12/04 1127) Temp: 36.6 C (97.9 F) (12/04 1127) Pulse: 68 (12/04 1127) Respirations: 16 PER MINUTE (12/04 1127) SpO2: 97 % (12/04 1127) O2 Delivery: None (Room Air) (12/04 1127) SpO2 Pulse: 67 (12/03 1000) Height: 157.5 cm (62.01") (12/03 1999) BP: (99-121)/(54-69) ABP: (95-127)/(44-65) Temp: [35.6 C (96.1 F)-36.8 C (98.2 F)] Pulse: [67-85] Respirations: [10 PER MINUTE-26 PER MINUTE] SpO2: [94 %-100 %] O2 Delivery: None (Room Air) General appearance: alert, oriented, NAD HENT: mucus membranes moist, Eyes: EOM grossly intact, Neck: supple, Lungs: no wheezing, rhonchi, rales appreciated Heart: Regular rhythm, reg rate, Abdomen: soft, non-tender, non-distended, normoactive bowel sounds, Ext: No clubbing, cyanosis or edema Skin: no rashes/lesions NEUROPATHOLOGIST: Grossly nonfocal Lab Review Point of Care Testing (Last 24 hours) Glucose: (!) 121 (12/03/17 0404) POC Glucose (Download): (!) 159 (12/03/17 1233) Recent Labs 12/01/17 1343 12/02/17 1630 12/02/17 2100 12/03/17 0200 12/03/17 0404 NA 136* 141 -- -- 141 K 3.7 3.9 3.8 4.0 4.4 CL 103 111* -- -- 112* CO2 25 22 -- -- 22 GAP 8 8 -- -- 7 BUN 17 15 -- -- 17 CR 0.85 0.65 -- -- 0.68 GLU 304* 166* -- -- 121* CA 9.7 8.4* -- -- 8.7 ALBUMIN 3.9 -- -- -- -- MG -- 3.1* 3.8* -- 3.3* Recent Labs 12/01/17 1343 12/02/17 1630 12/03/17 0404 WBC 5.2 7.5 7.8 HGB 12.4 8.8* 8.8* HCT 37.2 25.1* 26.8* PLTCT 186 112* 110* INR -- 1.1 -- PTT -- 29.3 -- AST 13 -- -- ALT 9 -- -- ALKPHOS 70 -- -- Estimated Creatinine Clearance: 78.4 mL/min (based on SCr of 0.68 mg/dL). Vitals: 12/02/17 0810 12/02/17 2000 12/03/17 0453 Weight: 71.3 kg (157 lb 3 oz) 71.3 kg (157 lb 3 oz) 73.8 kg (162 lb 9.6 oz) Thyroid Studies No results found for: TSH, FREET4, FREEINDEX No results found for: FREET3, N6OOONNGF, THYBINDGLB Eugenia Gutierrez MD Endocrinology Fellow PGY-5 Associated attestation - Lars Tatum MD - 12/03/2017 3:32 PM CDT Formatting of this note may be different from the original. ATTESTATION I personally performed the zamudio portions of the E/M visit, discussed case with resident and concur with resident documentation of history, physical exam, assessment, and treatment plan unless otherwise noted. Staff name: Lars Tatum MD Date: 12/03/2017 * Mirza Lazo DO - 12/02/2017 9:40 PM CDT Associated Order(s): CONSULT ANESTHESIOLOGY CRITICAL CARE PHYSICIAN Formatting of this note may be different from the original. Nimisha Jaramillo Admission Date: 12/02/2017 LOS: 0 days ASSESSMENT/PLAN ATTESTATION I have seen, personally fully evaluated, and discussed patient with the [facility] ICU team. The patient is critically ill s/p BYPASS GRAFT CORONARY ARTERY x3, LEFT INTERNAL MAMMARY ARTERY HARVEST, LEFT ENDOSCOPIC SAPHENOUS VEIN HARVEST. I spent 60 minutes (excluding time spent performing or supervising any procedures ) providing and personally directing critical care services including direct OR recovery, ventilator management, hemodynamic monitoring and management, lab and radiology review, medication review and management, fluid and electrolyte management and coordination of care. Staff name: Mirza Lazo DO Date: 12/02/2017 Patient Active Problem List Diagnosis Date Noted Acute on chronic combined systolic and diastolic heart failure, NYHA class 2 ([facility]) 12/02/2017 On mechanically assisted ventilation ([facility]) 12/02/2017 CAD (coronary artery disease) 11/23/2017 11/24/17-cardiac catheterization revealed an occluded mid left anterior descending artery with faint [id number]-[id number] collaterals, 90% mid second obtuse marginal stenosis with a 70% ostial circumflex stenosis and 95% proximal posterior lateral stenosis. Bilateral carotid artery disease ([facility]) 11/17/2017 05/04/17 - Carotid U/S: mild 1-39% stenosis, nonobstructive disease bilaterally. Coronary artery disease involving [place] coronary artery of [place] heart with unstable angina pectoris ([facility]) 11/17/2017 03/05/17 - [facility]: Total occlusion of the mid LAD, balloon angioplasty using 2 different sized balloons. No reestablishment of flow. Appears the artery is diffusely diseased & occluded. Proximal portion has severe disease - balloon angioplasty with slight improvement. Severe disease at mid and distal circumflex - fairly small artery. Patent stent in large dominant RCA. Normal LV , EF 60%, normal LVEDP. 06/16/16 [facility]: Severe in-stent restenosis in prox and [...] circumflex, fairly small artery. Normal LVEDP. 06/2015 [facility]: 2.5 x 18 mm Resolute Integrity stent to mid circumflex, prox lesion is 40% stenosed, distal lesion 80%. Patent multiple stents in prox, mid, and distal LAD w/ mild in-stent restenosis. Patent stent in RCA w/ mild disease in distal RCA. 05/2015 [facility]: 3.5 x 12 mm & 2.75 x 24 mm Promus Premier overlapping stents to mid RCA. Patent stents in the LAD. Severe stenosis at distal LAD, 70% prox circumflex and 70-80% mid to distal circ/OM branch. [facility]: 2.5 x 24 mm and 2.5 x 20 mm Promusto distal and proximal LAD, 50% prox circumflex, 70-80% mid to distal circumflex involving the proximal portion of OM1, 50-60% mid RCA, LV anterior wall hypokinetic. EF 40%. PAD (peripheral artery disease) ([facility]) 11/17/2017 Essential hypertension 11/17/2017 Mixed hyperlipidemia 11/17/2017 History of tobacco abuse 11/17/2017 Type 2 diabetes mellitus with complication, with long-term current use of insulin ([facility]) 11/17/2017 Tooth decay 11/16/2017 Added automatically from request for surgery [id number] Neuro: PRN tylenol and PRN opioids per CTS protocol. Assess daily for delirium. Sedation: PRN pain meds. Precedex for moderate to severe agitation if no contraindications (bradycardia, heart block). Cardiac: Monitor vitals q1hr. Fluids and inotropes for CI greater than 2 Respiratory: Check postop ABG. OOB when able, aggressive RT. Chest tubes per CTS. GI: NPO for now, then advance diet as tolerated. GI ppx. Start CTS bowel regimen, ensure regular BM. Heme: Check postop CBC/coags, assess for coagulopathy. Hold chemical DVT ppx until cleared by CTS, continue mechanical ppx. Start ASA within 8 hours of surgery (hold for plts < 80K). ID: Post op abx: Per CTS protocol Renal: Check postop BMP, monitor for FILIBERTO. Fluids PRN to maintain hemodynamic stability. FEN:Electrolyte goals while in ICU: Mg >2.0, iCal > 1.0, K+ >4.0 mEq/L. Insulin gtt per Modified Rives Protocol . Activity: Increase HOB to 30 degrees over 1st postop hour. Bedrest until extubated. Dangle early and advance activity as tolerated. Early cardiac PT/ OT. Dispo: This patient is immediately postop, critically ill with dysfunction of multiple organ systems and is at risk for additional life threatening deterioration. Cont ICU care. Lines: Yes; Arterial Line; Indication: Frequent blood draws and Continuous BP monitoring; Location: Radial Central Line; Indication: Med not deliverable peripherally, Incompatability of meds and Hemodynamic monitoring; Type: Internal jugular Urinary Catheter: Yes; Retain block due to: Need for accurate Intake and Output __ HISTORY OR Course Uncomplicated intubation. Gtts on arrival to ICU: None PMHx significant for: CAD, PAD, DM, HLD, Past Surgical History: Procedure Laterality Date TOOTH EXTRACTION Bilateral 11/24/2017 EXTRACTION TEETH #6, 7, 8, 9, 10, 11, 14, 22-27 performed by Dena Gayle DDS at [facility] CARDIAC SURGERY Total of 13 stents CARPAL TUNNEL RELEASE CHOLECYSTECTOMY HX HYSTERECTOMY KNEE ARTHROSCOPY LEEP PROCEDURE cervix TUBAL LIGATION Allergies Allergen Reactions Fish Containing Products HIVES and EDEMA Ketoprofen EDEMA Tongue swelling Mushroom SEE COMMENTS Doesn't agree with her Penicillins STOMACH UPSET Home Medications Inpatient Scheduled Meds: acetaminophen (TYLENOL) tablet 1,000 mg 1,000 mg Oral Q6H* ALBUMIN, HUMAN 5 % IV SOLP (Cabinet Override) NOW [START ON 12/03/2017] amiodarone (CORDARONE) tablet 400 mg 400 mg Oral BID aspirin chewable tablet 81 mg 81 mg Oral QDAY atorvastatin (LIPITOR) tablet 40 mg 40 mg Oral QDAY ceFAZolin (ANCEF) IVP 1 g 1 g Intravenous Q8H* famotidine (PEPCID) tablet 20 mg 20 mg Oral BID Or famotidine (PEPCID) injection 20 mg 20 mg Intravenous BID [START ON 12/03/2017] senna/docusate (SENOKOT-S) tablet 2 tablet 2 tablet Oral BID Continuous Infusions: aminocaproic acid (AMICAR) 12.5 g in sodium chloride 0.9% (NS) IV infusion Stopped (12/02/17 1855) dexmedetomidine (PRECEDEX) 400 mcg in sodium chloride 0.9% (NS) 100 mL IV infusion Stopped (12/02/17 1709) insulin regular (NOVOLIN R) 100 Units in sodium chloride 0.9% (NS) 100 mL IV drip (std conc) 2 Units/hr (12/02/17 1914) niCARdipine (cardENE) 20 mg/NS 200 mL infusion (std conc)(premade) Stopped (12/02/17 1835) nitroGLYCERIN 50 mg/D5W 250 mL infusion Stopped (12/02/17 1720) norepinephrine (LEVOPHED) 4 mg in dextrose 5% (D5W) 250 mL IV drip (std conc ) sodium chloride 0.9 % infusion 30 mL/hr at 12/02/17 1934 PRN and Respiratory Meds:[START ON 12/07/2017] acetaminophen Q6H PRN OR [ START ON 12/07/2017] acetaminophen Q6H PRN, alum/mag hydroxide/simeth Q4H PRN, atropine Once PRN, bisacodyl QDAY PRN, fentaNYL citrate PF Q1H PRN, hydrALAZINE Q6H PRN, lidocaine PF PRN, midazolam Q1H PRN, milk of magnesia (CONC) QDAY PRN, ondansetron Q6H PRN OR ondansetron Q6H PRN, oxyCODONE Q4H PRN, potassium chloride SR PRN OR potassium chloride PRN OR potassium chloride in water PRN Social History Social History Substance Use Topics Smoking status: Former Smoker Packs/day: 1.00 Years: 45.00 Quit date: 01/23/2017 Smokeless tobacco: Never Used Alcohol use No OBJECTIVE Vital Signs: Last Filed Vital Signs: 24 Hour Range BP: 126/70 (12/02 1099) ABP: 112/56 (12/02 2118) Temp: 36.5 C (97.7 F) (12/02 2102) Pulse: 74 (12/02 2118) Respirations: 19 PER MINUTE (12/02 2118) SpO2: 100 % (12/02 2118) O2 Delivery: Endotracheal Tube (Oral) (12/02 2099) Weight: 71.3 kg (157 lb 3 oz) (12/02 809) Dosing / Dry Weight: 71.3 kg (157 lb 3 oz) (12/02 809) BP: (126-144)/(58-76) ABP: (95-127)/(44-65) Temp: [35.6 C (96.1 F)-36.8 C (98.2 F)] Pulse: [71-85] Respirations: [12 PER MINUTE-23 PER MINUTE] SpO2: [95 %-100 %] O2 Delivery: Endotracheal Tube (Oral) Intensity Pain Scale 0-10 (Pain 1): (not recorded) Vitals: 12/02/17809 Weight: 71.3 kg (157 lb 3 oz) Artificial airway: Endotracheal Tube Ventilator/ Respiratory Therapy: Yes: Weaning readiness screen (RT Only):: Implement protocol NIF: [-31 cm H2O] Weaning Minute Volume (L/min): [9.2 L/min] Weaning Tidal Vol (mL) (Calc.): [400 mL] $$ Vital Capacity (mL): [629 ml] Weaning Respiratory Rate: [23 breaths/min] RSBI (Calculated): [58] Mode: V/AC+ Set Vt (ml): [400 milliliters] Tidal Volume Spont (mL): [312 milliliters-407 milliliters] Set RR: [15 breaths/minutes] Total Respiratory Rate (Breaths/Min): [15 breaths/minutes-23 breaths/minutes] Minute Volume (L/min): [6.22 liters/minutes-9.24 liters/minutes] O2%: [40 %] PIP Actual: [18 cm H20-21 cm H20] PEEP/CPAP: [5 cm H2O] Plateau Pressure: [18 cm H2O-20 cm H2O] Physical Exam: General: sedated Neurologic: Pupils: Size: 2 mm, Reactivity: PERRL Heart: regular rate and rhythm Lungs: clear to auscultation bilaterally Abdomen: soft, non-tender. Bowel sounds normal. No masses, no organomegaly Extremities: extremities normal, atraumatic, no cyanosis or edema Lab Review: 24-hour labs: Results for orders placed or performed during the hospital encounter of (from the past 24 hour(s)) POC GLUCOSE Collection Time: 12/02/17 8:22 AM Result Value Ref Range Glucose, POC 102 (H) 70 - 100 MG/DL POC GLUCOSE Collection Time: 12/02/17 11:35 AM Result Value Ref Range Glucose, POC 99 70 - 100 MG/DL POC BLOOD GAS ARTERIAL Collection Time: 12/02/17 11:37 AM Result Value Ref Range PH-ART-POC 7.35 7.35 - 7.45 XAC4-XCM-RHM 47 (H) 35 - 45 MMHG PO2-ART-POC 311 (H) 80 - 100 MMHG Base Ex-ART-POC 0.0 MMOL/L O2 Sat-ART-POC 100.0 (H) 95 - 99 % Tnulddasqgc-OAO-NNA 25.8 21 - 28 MMOL/L POC HEMATOCRIT Collection Time: 12/02/17 11:37 AM Result Value Ref Range Hemoglobin POC 11.6 (L) 12.0 - 15.0 GM/DL Hematocrit POC 34.0 (L) 36 - 45 % POC POTASSIUM Collection Time: 12/02/17 11:37 AM Result Value Ref Range Potassium-POC 3.6 3.5 - 5.1 MMOL/L POC SODIUM Collection Time: 12/02/17 11:37 AM Result Value Ref Range Sodium-POC 144 137 - 147 MMOL/L POC IONIZED CALCIUM Collection Time: 12/02/17 11:37 AM Result Value Ref Range Ionized Calcium-POC 1.22 1.0 - 1.3 MMOL/L POC BLOOD GAS ARTERIAL Collection Time: 12/02/17 11:49 AM Result Value Ref Range PH-ART-POC 7.39 7.35 - 7.45 SQR3-KSK-DNS 43 35 - 45 MMHG PO2-ART-POC 259 (H) 80 - 100 MMHG Base Ex-ART-POC 1.0 MMOL/L O2 Sat-ART-POC 100.0 (H) 95 - 99 % Boycztsgfqs-RKR-AXO 25.8 21 - 28 MMOL/L POC HEMATOCRIT Collection Time: 12/02/17 11:49 AM Result Value Ref Range Hemoglobin POC 10.9 (L) 12.0 - 15.0 GM/DL Hematocrit POC 32.0 (L) 36 - 45 % POC POTASSIUM Collection Time: 12/02/17 11:49 AM Result Value Ref Range Potassium-POC 3.5 3.5 - 5.1 MMOL/L POC SODIUM Collection Time: 12/02/17 11:49 AM Result Value Ref Range Sodium-POC 144 137 - 147 MMOL/L POC IONIZED CALCIUM Collection Time: 12/02/17 11:49 AM Result Value Ref Range Ionized Calcium-POC 1.20 1.0 - 1.3 MMOL/L POC GLUCOSE Collection Time: 12/02/17 1:30 PM Result Value Ref Range Glucose, POC 113 (H) 70 - 100 MG/DL POC GLUCOSE Collection Time: 12/02/17 1:49 PM Result Value Ref Range Glucose, POC 121 (H) 70 - 100 MG/DL POC BLOOD GAS ARTERIAL Collection Time: 12/02/17 1:52 PM Result Value Ref Range PH-ART-POC 7.46 (H) 7.35 - 7.45 MKC2-KBM-CEF 42 35 - 45 MMHG PO2-ART-POC 581 (H) 80 - 100 MMHG Base Ex-ART-POC 6.0 MMOL/L O2 Sat-ART-POC 100.0 (H) 95 - 99 % Rwsgmghdhxa-JZY-SNS 29.4 (H) 21 - 28 MMOL/L POC HEMATOCRIT Collection Time: 12/02/17 1:52 PM Result Value Ref Range Hemoglobin POC 7.5 (L) 12.0 - 15.0 GM/DL Hematocrit POC 22.0 (L) 36 - 45 % POC POTASSIUM Collection Time: 12/02/17 1:52 PM Result Value Ref Range Potassium-POC 5.9 (H) 3.5 - 5.1 MMOL/L POC SODIUM Collection Time: 12/02/17 1:52 PM Result Value Ref Range Sodium-POC 141 137 - 147 MMOL/L POC IONIZED CALCIUM Collection Time: 12/02/17 1:52 PM Result Value Ref Range Ionized Calcium-POC 0.95 (L) 1.0 - 1.3 MMOL/L POC GLUCOSE Collection Time: 12/02/17 2:20 PM Result Value Ref Range Glucose, POC 116 (H) 70 - 100 MG/DL POC BLOOD GAS ARTERIAL Collection Time: 12/02/17 2:22 PM Result Value Ref Range PH-ART-POC 7.46 (H) 7.35 - 7.45 QHC0-EVH-NYJ 40 35 - 45 MMHG PO2-ART-POC 566 (H) 80 - 100 MMHG Base Ex-ART-POC 5.0 MMOL/L O2 Sat-ART-POC 100.0 (H) 95 - 99 % Xlevjtnyxng-FCM-RHS 28.6 (H) 21 - 28 MMOL/L POC HEMATOCRIT Collection Time: 12/02/17 2:22 PM Result Value Ref Range Hemoglobin POC 8.2 (L) 12.0 - 15.0 GM/DL Hematocrit POC 24.0 (L) 36 - 45 % POC POTASSIUM Collection Time: 12/02/17 2:22 PM Result Value Ref Range Potassium-POC 5.2 (H) 3.5 - 5.1 MMOL/L POC SODIUM Collection Time: 12/02/17 2:22 PM Result Value Ref Range Sodium-POC 141 137 - 147 MMOL/L POC IONIZED CALCIUM Collection Time: 12/02/17 2:22 PM Result Value Ref Range Ionized Calcium-POC 1.03 1.0 - 1.3 MMOL/L POC GLUCOSE Collection Time: 12/02/17 3:04 PM Result Value Ref Range Glucose, POC 132 (H) 70 - 100 MG/DL POC BLOOD GAS ARTERIAL Collection Time: 12/02/17 3:06 PM Result Value Ref Range PH-ART-POC 7.51 (H) 7.35 - 7.45 RAT9-MGS-XBZ 34 (L) 35 - 45 MMHG PO2-ART-POC 439 (H) 80 - 100 MMHG Base Ex-ART-POC 4.0 MMOL/L O2 Sat-ART-POC 100.0 (H) 95 - 99 % Qmmxrgohvui-RGG-NYD 27.3 21 - 28 MMOL/L POC HEMATOCRIT Collection Time: 12/02/17 3:06 PM Result Value Ref Range Hemoglobin POC 8.5 (L) 12.0 - 15.0 GM/DL Hematocrit POC 25.0 (L) 36 - 45 % POC POTASSIUM Collection Time: 12/02/17 3:06 PM Result Value Ref Range Potassium-POC 4.2 3.5 - 5.1 MMOL/L POC SODIUM Collection Time: 12/02/17 3:06 PM Result Value Ref Range Sodium-POC 142 137 - 147 MMOL/L POC IONIZED CALCIUM Collection Time: 12/02/17 3:06 PM Result Value Ref Range Ionized Calcium-POC 1.18 1.0 - 1.3 MMOL/L CBC Collection Time: 12/02/17 4:30 PM Result Value Ref Range White Blood Cells 7.5 4.5 - 11.0 K/UL RBC 2.91 (L) 4.0 - 5.0 M/UL Hemoglobin 8.8 (L) 12.0 - 15.0 GM/DL Hematocrit 25.1 (L) 36 - 45 % MCV 86.2 80 - 100 FL MCH 30.3 26 - 34 PG MCHC 35.2 32.0 - 36.0 G/DL RDW 13.1 11 - 15 % Platelet Count 112 (L) 150 - 400 K/UL MPV 9.4 7 - 11 FL BASIC METABOLIC PANEL Collection Time: 12/02/17 4:30 PM Result Value Ref Range Sodium 141 137 - 147 MMOL/L Potassium 3.9 3.5 - 5.1 MMOL/L Chloride 111 (H) 98 - 110 MMOL/L CO2 22 21 - 30 MMOL/L Anion Gap 8 3 - 12 Glucose 166 (H) 70 - 100 MG/DL Blood Urea Nitrogen 15 7 - 25 MG/DL Creatinine 0.65 0.4 - 1.00 MG/DL Calcium 8.4 (L) 8.5 - 10.6 MG/DL eGFR Non >60 >60 mL/min eGFR >60 >60 mL/min PROTIME INR (PT) Collection Time: 12/02/17 4:30 PM Result Value Ref Range INR 1.1 0.8 - 1.2 PTT (APTT) Collection Time: 12/02/17 4:30 PM Result Value Ref Range APTT 29.3 21.0 - 39.0 SEC MAGNESIUM Collection Time: 12/02/17 4:30 PM Result Value Ref Range Magnesium 3.1 (H) 1.6 - 2.6 mg/dL POC BLOOD GAS ARTERIAL Collection Time: 12/02/17 4:32 PM Result Value Ref Range PH-ART-POC 7.49 (H) 7.35 - 7.45 OXW4-PNV-QTN 33 (L) 35 - 45 MMHG PO2-ART-POC 299 (H) 80 - 100 MMHG Base Ex-ART-POC 2.0 MMOL/L O2 Sat-ART-POC 100.0 (H) 95 - 99 % Iqaggakuzty-RTK-UOO 25.0 21 - 28 MMOL/L POC HEMATOCRIT Collection Time: 12/02/17 4:32 PM Result Value Ref Range Hemoglobin POC 7.5 (L) 12.0 - 15.0 GM/DL Hematocrit POC 22.0 (L) 36 - 45 % POC POTASSIUM Collection Time: 12/02/17 4:32 PM Result Value Ref Range Potassium-POC 3.7 3.5 - 5.1 MMOL/L POC SODIUM Collection Time: 12/02/17 4:32 PM Result Value Ref Range Sodium-POC 143 137 - 147 MMOL/L POC IONIZED CALCIUM Collection Time: 12/02/17 4:32 PM Result Value Ref Range Ionized Calcium-POC 1.15 1.0 - 1.3 MMOL/L POC GLUCOSE Collection Time: 12/02/17 4:35 PM Result Value Ref Range Glucose, POC 155 (H) 70 - 100 MG/DL POC BLOOD GAS ARTERIAL Collection Time: 12/02/17 5:01 PM Result Value Ref Range PH-ART-POC 7.44 7.35 - 7.45 LND6-SKI-XEI 32 (L) 35 - 45 MMHG PO2-ART-POC 81 80 - 100 MMHG Base Def-ART-POC 3.0 MMOL/L O2 Sat-ART-POC 96.0 95 - 99 % Jumwrrczlgi-JNW-AAN 21.7 21 - 28 MMOL/L POC GLUCOSE Collection Time: 12/02/17 5:02 PM Result Value Ref Range Glucose, POC 165 (H) 70 - 100 MG/DL POC GLUCOSE Collection Time: 12/02/17 6:17 PM Result Value Ref Range Glucose, POC 169 (H) 70 - 100 MG/DL POC GLUCOSE Collection Time: 12/02/17 7:03 PM Result Value Ref Range Glucose, POC 157 (H) 70 - 100 MG/DL POC GLUCOSE Collection Time: 12/02/17 8:07 PM Result Value Ref Range Glucose, POC 154 (H) 70 - 100 MG/DL POC GLUCOSE Collection Time: 12/02/17 8:58 PM Result Value Ref Range Glucose, POC 137 (H) 70 - 100 MG/DL Point of Care Testing: (Last 24 hours): Glucose: (!) 166 (12/02/17 1630) POC Glucose (Download): (!) 137 (12/02/178) Radiology and Other Diagnostic Procedures Review: reviewed Mirza Lazo DO Hyperbaric Tech Anesthesiology and Critical Care [phone] in this encounter Miscellaneous Notes * Case Mgmt DC Plan - Meghan Berger RN - 12/08/2017 11:08 AM CDT Case Management Progress Note NAME:Nimisha Jaramillo :1955 AGE: 62 y.o. ADMISSION DATE: 12/02/2017 DAYS ADMITTED: LOS: 6 days Todays Date: 12/08/2017 Hxkr-XVS-0-CABG- increase activity,diabetic education, home today vs tomm. Interventions ? Support EMR and POC reviewed. ? Info or Referral ? Discharge Planning Met with pt and spouse at bedside to discuss POC. Discussed and pt agreeable. Pt used [facility] prior and would like to use again if possible. Geovanna at [facility] called and verified they could accept pt on service. ([phone], [phone]) Referral sent. Will send orders/AVS on DC. Pt had no other concerns at this time. CM will continue to follow for any DC needs that may arise. Update:1413- [facility] ? Medication Needs ? Financial ? Legal ? Other Disposition ? Expected Discharge Date Expected Discharge Date: 12/05/17 ? Transportation Does the patient need discharge transport arranged?: No Transportation Name, Phone and Availability #1: - Ritesh Burk Does the patient use Medicaid Transportation?: No ? Discharge Disposition Anticipate DC with family assistance and M1 [employer]. Meghan Berger RN, BSN Integrated Nurse Flavoring Machine Operator Pager * Care Plan - Annalise Lee RN - 12/08/2017 12:34 AM CDT Problem: Discharge Planning Goal: Knowledge regarding plan of care Outcome: Goal Ongoing Pt involved in plan of care * Care Plan - Trang Wright RN - 12/07/2017 7:08 PM CDT Problem: Pain Goal: Management of pain Outcome: Goal Ongoing Pt able to report pain on 1-10 scale. Problem: Falls, High Risk of Goal: Absence of falls-Adult Patient Outcome: Goal Ongoing High fall risk bundle in place. * Case Mgmt DC Plan - Maura Boswell - 12/03/2017 4:45 PM CDT Case Management Admission Assessment NAME:Nimisha Jaramillo :1955 AGE: 62 y.o. ADMISSION DATE: 12/02/2017 DAYS ADMITTED: LOS: 1 day Todays Date: 12/03/2017 Source of Information: Patient; EMR Plan Plan: CM Assessment, Psychosocial Assessment, Assist PRN with SW/NCM Services, Discharge Planning for Home Anticipated Patient is a 62 y/o female with a h/o insulin dependent DM, HTN, hypertriglyceridemia, reported COPD, reported carotid stenosis, prior tobacco abuse, occasional marijuana use, and known CAD s/p several PCIs who was referred to Dr. 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 Dr. Cortes consulted CTS for evaluation for surgical revascularization after [facility] today revealed severe, multivessel CAD in a diabetic patient. Cardiothoracic consultation has been requested to determine if the patient is a surgical candidate for CABG. Pt is now s/p 1 from CABG. She TTF this afternoon and placed on tele. Pt on RA. V wires capped. LLE with ARTURO wrap in place. Insulin drip infusing. MUSA met with pt, her , and her dgt in room this afternoon to complete an initial assessment. Pt's concerned about their current living situation and requesting letter from MUSA stating that d/t mold in the residence, he and pt would wish to break their one year lease early because of pt's current medical condition. MSUA told pt's she would draft a letter and provide it to them when she was able re: same but that she could not force the landlord to allow them to break their lease and the letter would only be able to request that per pt's current surgery they request the option to move to an apartment without a mold infestation. and pt appreciative of same. MUSA to draft letter to Marco Clarke with [employer] as he is the residential property tax appraiser of the pt's apartment complex. Patient Address/Phone [address] [facility] [phone] (home) Emergency Contact Extended Emergency Contact Information Primary Emergency Contact: Ritesh Burk [facility] Relation: Spouse Healthcare Directive Healthcare Directive: Yes, patient has a healthcare directive Type of Healthcare Directive: Durable power of city attorney for healthcare, Healthcare directive Location of Healthcare Directive: Current and verified in document scanning system Would patient like to fill out a (a new) Healthcare Directive?: No, patient declined Psych Advance Directive (Psych unit only): No, patient does not have a Psych Advance Directive Transportation Does the patient need discharge transport arranged?: No Transportation Name, Phone and Availability #1: - Ritesh Burk Does the patient use Medicaid Transportation?: No Expected Discharge Date Expected Discharge Date: 12/06/17 Living Situation Prior to Admission ? Living Arrangements Type of Residence: Home, independent Living Arrangements: Spouse/significant other How many levels in the residence?: 1 Can patient live on one level if needed?: Yes Does residence have entry and/or side stairs?: Yes (5 steps to get to ground floor apartment) Assistance needed prior to admit or anticipated on discharge: Yes Who provides assistance or could if needed?: - Ritesh Burk - Are they in good health?: Yes Can support system provide 24/7 care if needed?: Yes ? Level of Function Prior level of function: Independent ? Cognitive Abilities Cognitive Abilities: Alert and Oriented, Participates in decision making, Continue to Assess (Pt seemed to be somewhat groggy from medications and was minimally interactive with SW during assessment) Financial Resources ? Coverage Primary Insurance: Medicare (Part A and B) Secondary Insurance: No insurance Additional Coverage: None (Pt has difficulty affording her medications and has to utilize her [facility] monthly for assistance. If the clinic does not have her medications she cannot fill them elsewhere d/t cost) ? Source of Income Source Of Income: Food Assistance, Other (comment) ($192/month in food stamps. Pt also receives medication assistance from [facility]) ? Financial Assistance Needed? Pt has no Part D coverage at this time because she missed the open enrollment period. Pt says she has to have all medications [facility] [place] and they have a ramy they access to pay for her medications. D/t DM diagnosis pt has not been able to take her novolog and levemir in the past on a frequent basis. SW has concerns about her being compliant with medications in the future if she is unable to pay for her medications d/t her limited income. Psychosocial Needs ? Mental Health Mental Health History: No ? Substance Use History Substance Use History Screen: No ? Other N/A Current/Previous Services ? PCP Ashley Banegas, , ? Pharmacy [facility] [address] [place] [address] [address] [address] [address] [facility] [id number] ? Durable Medical Equipment Durable Medical Equipment at home: None ? Home Health Receiving home health: Yes Agency name: [facility] [phone] Would patient use this agency again?: Yes ? Hemodialysis or Peritoneal Dialysis Undergoing hemodialysis or peritoneal dialysis: No ? Tube/Enteral Feeds Receive tube/enteral feeds: No ? Infusion Receive infusions: No ? Private Duty Private duty help used: No ? Home and Community Based Services Home and community based services: No ? Italo White Italo White: N/A ? Hospice Hospice: No ? Outpatient Therapy PT: No OT: No DIGITAL SALES ASSISTANT: No ? Senior Care Facility/Detention SNF: No NH: No ? Inpatient Rehab IPR: No ? Long-Term Acute Care Hospital LTACH: No ? Acute Hospital Stay Acute Hospital Stay: In the past Was patient's stay within the last 30 days?: Yes When did patient receive care?: November 23 - 2017 Name of hospital: [facility] Readmission Code Group: 8. Scheduled Readmission 8. Scheduled Readmission: 8c. Surgery/procedure Maura Boswell YARDER PUNCHER Surgery - Cardiothoracic/Vascular Head Banquet Waiter/Waitress *[phone] * Care Plan - Philomena Leon RN - 12/03/2017 1:23 AM CDT Problem: Infection, Risk of, Urinary Catheter-Associated Urinary Tract Infection Goal: Absence of urinary catheter-associated infection Outcome: Goal Ongoing CAUTI prevention bundle in place Problem: Infection, Risk of, Central Venous Catheter-Associated Bloodstream Infection Goal: Absence of CVC Associated Bloodstream infection Outcome: Goal Ongoing CLABSI prevention bundle in place Problem: Injury-Risk of, Non-Violent Physical Restraints Goal: Absence of Injury while physically restrained (Non-Violent) Outcome: Goal Achieved Date Met: 12/03/17 Restraints discontinued once patient extubated Problem: Falls, High Risk of Goal: Absence of falls-Adult Patient Outcome: Goal Ongoing High Fall Risk bundle in place * Operative Report (DICTATED ONLY) - Jeimy Yi MD - 12/02/2017 4:18 PM CDT [address] [id number] PATIENT NAME: NIMISHA JARAMILLO MR#/PT#: [id number] OPERATIVE REPORT : 1955 DATE OF OPERATION: 12/02/2017 ROOM #: HC307 OPERATIVE REPORT SURGEON: Jeimy Yi III, MD (Trip) BOX SORTER SURGEON(S): MYRIAM Upton PA-C DICTATING PROVIDER: Jeimy Yi III, MD (Trip) PREOPERATIVE DIAGNOSIS: Severe 3 vessel coronary artery disease. POSTOPERATIVE DIAGNOSIS: Severe 3 vessel coronary artery disease. Operative Procedures: 1. Coronary artery bypass times 3 with the left internal mammary artery to the left anterior descending artery, reversed saphenous vein graft to PL and reversed saphenous vein graft to obtuse marginal. 2. Endoscopic harvest of greater saphenous vein from left leg. ANESTHESIA: General endotracheal. Complications: None. INDICATIONS FOR OPERATIVE PROCEDURE: This is a 62-year-old female with extensive previous PCI to LAD system. She now has severe in-stent restenoses and three-vessel disease and a diabetic. She presents now for elective three- vessel coronary artery bypass. DESCRIPTION AND FINDINGS OF OPERATIVE PROCEDURE: After informed consent, the patient was brought to the operating room and placed supine on the table. Arterial and venous lines were placed per Anesthesia. A single-lumen endotracheal tube was placed. General endotracheal anesthesia was induced. The patient was prepped and draped in the usual sterile fashion. A midline sternotomy incision was made. Bovie cautery was used to extend the soft tissues and the sternum was divided in the midline. The left hemithorax was elevated and the left internal mammary artery was harvested in a pedicle fashion using Bovie cautery and clips to the side branches. It was a good quality vessel with excellent flow at its division. It was clipped distally, soaked in papaverine, and returned to the left chest. Concurrently, greater saphenous vein was harvested from the left leg using endoscopic techniques. It was a good quality vessel 4.5 mm in diameter and thin walled. The pericardium was opened suspended. Systemic heparinization was achieved. Arterial and venous cannulas were placed. Antegrade and retrograde cardioplegia catheters were secured. Cardiopulmonary bypass was initiated. Aortic cross-clamp was placed and warm blood cardioplegia was administered in an antegrade fashion followed by cold blood cardioplegia. There was prompt electromechanical arrest. The heart was turned, exposing the distal right circulation. The posterior lateral branch was identified and opened. This was a 2 to 2.5 mm target. End-to-side anastomosis was constructed. The proximal was constructed to the right side of the aorta. The heart was then turned, exposing the lateral wall. Marginal vessel was identified. This was heavily calcified throughout its length. This was a 3 mm target. End-to-side anastomosis was constructed in the proximal to the left side of the aorta. The mammary was brought through a slit in the pericardium. The LAD had stents extending all the way down to the apex. At the very distal portion of the LAD, the stenting stopped. We opened it there, and this was a 3 mm target. End-to- side anastomosis was constructed. Aortic cross-clamp was released. There was prompt return of normal sinus rhythm. The patient was gradually weaned from cardiopulmonary bypass without difficulty. Protamine was administered. The venous and arterial cannulas were removed. After confirming hemostasis, 2 mediastinal Blakes were left in place. One left pleural Erick was left in place. Ventricular pacing wire was secured. Sternal closure was augmented with the use of Accu-Ties. Soft tissue closure was standard. Patient returned to the ICU in stable condition. All sponge and instrument counts were correct per report. I was present for the entire procedure. Jeimy Hess) MD MARIANA Miller III/Hakeem Hess) Hanny Yi III, MD / Hakeem [id number] P cc: - Jeimy Hess) Hanny Yi III, MD * Procedures (Immed Post or Bedside) - Emma Mcnally PA-C - 12/02/2017 3: 35 PM CDT Brief Operative Note Name: Nimisha Jaramillo is a 62 y.o. female : 1955 DATE OF OPERATION: 12/02/2017 Date: 12/02/2017 Preoperative Dx: Coronary artery disease involving [place] coronary artery of [place] heart with unstable angina pectoris (HCC) [I25.110] Post-op Diagnosis * Coronary artery disease involving [place] coronary artery of [place] heart with unstable angina pectoris (HCC) [I25.110] Procedure(s): BYPASS GRAFT CORONARY ARTERY x3, LEFT INTERNAL MAMMARY ARTERY HARVEST, LEFT ENDOSCOPIC SAPHENOUS VEIN HARVEST Anesthesia Type: Defer to Anesthesia ANTIBIOTICS: 2G ANCEF 1139 Surgeon(s) and Role: * Jeimy Yi MD - Primary * Richa Ni PA-C - Assisting *Olena Mcnally PA-C Findings: CAD Estimated Blood Loss: No blood loss documented. Specimen(s) Removed/Disposition: * No specimens in log * Complications: None Implants: None Drains: Chest Tube(s): 0 mL Disposition: ICU - stable Emma Mcnally PA-C Pager [phone] in this encounter Plan of Treatment Name Priority Associated Diagnoses Order Schedule ECG 12-LEAD STAT ONE TIME for 1 Occurrences starting 12/02/2017 until 12/02/2017 ECG 12-LEAD Routine ONE TIME for 1 Occurrences starting 12/03/2017 until 12/03/2017 CHEST 2 VIEWS Routine Coronary artery disease Expected: 01/12/2018 involving [place] heart, (Approximate), Expires: angina presence 12/04/2018 unspecified, unspecified vessel or lesion type as of this encounter Results * POC GLUCOSE (12/08/2017 11:19 AM) Component Value Ref Range Glucose, POC 234 (H) 70 - 100 MG/DL Specimen Performing Laboratory [facility] [address] [place] [address] * POC GLUCOSE (12/08/2017 7:31 AM) Component Value Ref Range Glucose, POC 131 (H) 70 - 100 MG/DL Specimen Performing Laboratory [facility] [address] [place] [address] * POC GLUCOSE (12/07/2017 9:16 PM) Component Value Ref Range Glucose, POC 202 (H) 70 - 100 MG/DL Specimen Performing Laboratory [facility] [address] [place] [address] * POC GLUCOSE (12/07/2017 5:41 PM) Component Value Ref Range Glucose, POC 171 (H) 70 - 100 MG/DL Specimen Performing Laboratory MA[facility] [address] [place] [address] * POC GLUCOSE (12/07/2017 11:35 AM) Component Value Ref Range Glucose, POC 328 (H) 70 - 100 MG/DL Specimen Performing Laboratory [facility] [address] [place] [address] * POC GLUCOSE (12/07/2017 7:18 AM) Component Value Ref Range Glucose, POC 134 (H) 70 - 100 MG/DL Specimen Performing Laboratory [facility] [address] [place] [address] * MAGNESIUM (12/07/2017 4:23 AM) Component Value Ref Range Magnesium 2.0 1.6 - 2.6 mg/dL Specimen Performing Laboratory Blood [facility] [address] [place] [address] * CBC (12/07/2017 4:23 AM) Component Value Ref Range White Blood Cells [...] - 11 FL Specimen Performing Laboratory Blood [facility] [address] [place] [address] * BASIC METABOLIC PANEL (12/07/2017 4:23 AM) Component Value Ref Range Sodium 134 (L) [...] Pharmacist for questions. Specimen Performing Laboratory Blood [facility] [address] [place], [place] [id number] * POC GLUCOSE (12/07/2017 3:28 AM) Component Value Ref Range Glucose, POC 119 (H) 70 - 100 MG/DL Specimen Performing Laboratory [facility] [address] [place] [address] * POC GLUCOSE (12/06/2017 8:49 PM) Component Value Ref Range Glucose, POC 215 (H) 70 - 100 MG/DL Specimen Performing Laboratory [facility] [address] [place], [place] [id number] * POC GLUCOSE (12/06/2017 5:38 PM) Component Value Ref Range Glucose, POC 147 (H) 70 - 100 MG/DL Specimen Performing Laboratory [facility] [address] [place], [place] [id number] * POC GLUCOSE (12/06/2017 11:29 AM) Component Value Ref Range Glucose, POC 137 (H) 70 - 100 MG/DL Specimen Performing Laboratory [facility] [address] [place], [place] [id number] * POC GLUCOSE (12/06/2017 7:47 AM) Component Value Ref Range Glucose, POC 133 (H) 70 - 100 MG/DL Specimen Performing Laboratory [facility] [address] [place], [place] [id number] * MAGNESIUM (12/06/2017 4:46 AM) Component Value Ref Range Magnesium 2.4 1.6 - 2.6 mg/dL Specimen Performing Laboratory Blood [facility] [address] [place], [place] [id number] * CBC (12/06/2017 4:46 AM) Component Value Ref Range White Blood Cells 9.2 4.5 - 11.0 K/UL RBC 2.97 (L) 4.0 - 5.0 M/UL Hemoglobin 8.9 (L) 12.0 - 15.0 GM/DL Hematocrit 26.0 (L) 36 - 45 % MCV 87.4 80 - 100 FL MCH 29.8 26 - 34 PG MCHC 34.1 32.0 - 36.0 G/DL RDW 13.2 11 - 15 % Platelet Count 129 (L) 150 - 400 K/UL MPV 10.1 7 - 11 FL Specimen Performing Laboratory Blood [facility] [address] [place] [address] * BASIC METABOLIC PANEL (12/06/2017 4:46 AM) Component Value Ref Range Sodium 132 (L) 137 - 147 MMOL/L Potassium 4.2 3.5 - 5.1 MMOL/L Chloride 99 98 - 110 MMOL/L CO2 28 21 - 30 MMOL/L Anion Gap 5 3 - 12 Glucose 129 (H) 70 - 100 MG/DL Blood Urea Nitrogen 35 (H) 7 - 25 MG/DL Creatinine 0.79 0.4 - 1.00 MG/DL Calcium 8.8 8.5 - 10.6 MG/DL eGFR Non >60 [...] Pharmacist for questions. Specimen Performing Laboratory Blood [facility] [address] [place] [address] * POC GLUCOSE (12/05/2017 9:04 PM) Component Value Ref Range Glucose, POC 142 (H) 70 - 100 MG/DL Specimen Performing Laboratory [facility] [address] [place] [address] * POC GLUCOSE (12/05/2017 4:57 PM) Component Value Ref Range Glucose, POC 158 (H) 70 - 100 MG/DL Specimen Performing Laboratory MAIN [facility] [address] [place] [address] * POC GLUCOSE (12/05/2017 11:36 AM) Component Value Ref Range Glucose, POC 211 (H) 70 - 100 MG/DL Specimen Performing Laboratory [facility] [address] [place] [address] * POC GLUCOSE (12/05/2017 7:16 AM) Component Value Ref Range Glucose, POC 210 (H) 70 - 100 MG/DL Specimen Performing Laboratory [facility] [address] [place] [address] * CHEST SINGLE VIEW (12/05/2017 7:03 AM) Specimen Performing Laboratory [facility] RAD RESULTS Impressions [...] Stevenson M.D. on 12/05/2017 9:57 AM. * POC GLUCOSE (12/05/2017 4:00 AM) Component Value Ref Range Glucose, POC 219 (H) 70 - 100 MG/DL Specimen Performing Laboratory [facility] [address] [place] [address] * MAGNESIUM (12/05/2017 3:43 AM) Component Value Ref Range Magnesium 2.7 (H) 1.6 - 2.6 mg/dL Specimen Performing Laboratory Blood [facility] [address] [place] [address] * CBC (12/05/2017 3:43 AM) Component Value Ref Range White Blood Cells 10.8 4.5 - 11.0 K/UL RBC 3.08 (L) 4.0 - 5.0 M/UL Hemoglobin 9.2 (L) 12.0 - 15.0 GM/DL Hematocrit 26.8 (L) 36 - 45 % MCV 87.0 80 - 100 FL MCH 30.0 26 - 34 PG MCHC 34.5 32.0 - 36.0 G/DL RDW 12.9 11 - 15 % Platelet Count 126 (L) 150 - 400 K/UL MPV 10.5 7 - 11 FL Specimen Performing Laboratory Blood [facility] [address] [place] [address] * BASIC METABOLIC PANEL (12/05/2017 3:43 AM) Component Value Ref Range Sodium 131 (L) 137 - 147 MMOL/L Potassium 4.1 3.5 - 5.1 MMOL/L Chloride 100 98 - 110 MMOL/L CO2 24 21 - 30 MMOL/L Anion Gap 7 3 - 12 Glucose 223 (H) 70 - 100 MG/DL Blood Urea Nitrogen 34 (H) 7 - 25 MG/DL Creatinine 0.95 0.4 - 1.00 MG/DL Calcium 8.8 8.5 - 10.6 MG/DL eGFR Non 60 (L) >60 mL/min Comment: The eGFR is not [...] questions. Specimen Performing Laboratory Blood [facility] [address] [place] [address] * POC GLUCOSE (12/04/2017 9:14 PM) Component Value Ref Range Glucose, POC 172 (H) 70 - 100 MG/DL Specimen Performing Laboratory [facility] [address] [place] [address] * POC GLUCOSE (12/04/2017 5:29 PM) Component Value Ref Range Glucose, POC 234 (H) 70 - 100 MG/DL Specimen Performing Laboratory [facility]IN [facility] [address] [place] [address] * POC GLUCOSE (12/04/2017 11:28 AM) Component Value Ref Range Glucose, POC 228 (H) 70 - 100 MG/DL Specimen Performing Laboratory [facility] [address] [place] [address] * POC GLUCOSE (12/04/2017 7:53 AM) Component Value Ref Range Glucose, POC 177 (H) 70 - 100 MG/DL Specimen Performing Laboratory [facility]IN [facility] [address] [place] [address] * CHEST SINGLE VIEW (12/04/2017 6:37 AM) Specimen Performing Laboratory [facility] RAD RESULTS Impressions Poor depth of inspiration with bibasilar atelectasis and persistent small bilateral pleural effusions. Approved by Tray Campbell M.D. on 12/04/2017 9:56 AM By my electronic signature, I attest that I have personally reviewed the images for this examination and formulated the interpretations and opinions expressed in this report Finalized by Dakota Lan M.D. on 12/04/2017 3:57 PM. Dictated by Tray Campbell M.D. on 12/04/2017 9:11 AM. Narrative CHEST SINGLE VIEW Clinical Indication: Female, 62 years old.Atelectasis. Comparison: December 03, 2017 Findings: Prior median sternotomy. Heart size and pulmonary vasculature are within normal limits. Persistent small bilateral pleural effusions. Poor depth of inspiration with bibasilar atelectasis. Surgical clips overlying the right upper quadrant. Procedure Note Interface, Radiant Results - 12/04/2017 4:00 PM CDT CHEST SINGLE VIEW Clinical Indication: Female, 62 years old. Atelectasis. Comparison: December 03, 2017 Findings: Prior median sternotomy. Heart size and pulmonary vasculature are within normal limits. Persistent small bilateral pleural effusions. Poor depth of inspiration with bibasilar atelectasis. Surgical clips overlying the right upper quadrant. IMPRESSION Poor depth of inspiration with bibasilar atelectasis and persistent small bilateral pleural effusions. Approved by Tray Campbell M.D. on 12/04/2017 9:56 AM By my electronic signature, I attest that I have personally reviewed the images for this examination and formulated the interpretations and opinions expressed in this report Finalized by Dakota Lan M.D. on 12/04/2017 3:57 PM. Dictated by Tray Campbell M.D. on 12/04/2017 9:11 AM. * MAGNESIUM (12/04/2017 3:53 AM) Component Value Ref Range Magnesium 2.8 (H) 1.6 - 2.6 mg/dL Specimen Performing Laboratory Blood [facility] [address] [place] [address] * CBC (12/04/2017 3:53 AM) Component Value Ref Range White Blood Cells 12.3 (H) 4.5 - 11.0 K/UL RBC 2.96 (L) 4.0 - 5.0 M/UL Hemoglobin 8.8 (L) 12.0 - 15.0 GM/DL Hematocrit 26.2 (L) 36 - 45 % MCV 88.7 80 - 100 FL MCH 29.7 26 - 34 PG MCHC 33.4 32.0 - 36.0 G/DL RDW 13.3 11 - 15 % Platelet Count 131 (L) 150 - 400 K/UL MPV 10.3 7 - 11 FL Specimen Performing Laboratory Blood [facility] [address] [place] [address] * BASIC METABOLIC PANEL (12/04/2017 3:53 AM) Component Value Ref Range Sodium 135 (L) 137 - 147 MMOL/L Potassium 4.5 3.5 - 5.1 MMOL/L Chloride 105 98 - 110 MMOL/L CO2 21 21 - 30 MMOL/L Anion Gap 9 3 - 12 Glucose 225 (H) 70 - 100 MG/DL Blood Urea Nitrogen 25 7 - 25 MG/DL Creatinine 1.18 (H) 0.4 - 1.00 MG/DL Calcium 8.7 8.5 - 10.6 MG/DL eGFR Non 46 (L) >60 mL/min Comment: The eGFR is not validated for use in drug dosing adjustments.Continue to use estimated creatinine clearance per dosing reference text.Please contact the Clinical Pharmacist for questions. eGFR 56 (L) >60 mL/min Comment: The eGFR is not validated for use in drug dosing adjustments.Continue to use estimated creatinine clearance per dosing reference text.Please contact the Clinical Pharmacist for questions. Specimen Performing Laboratory Blood [facility] [address] [place] [address] * POC GLUCOSE (12/04/2017 12:06 AM) Component Value Ref Range Glucose, POC 112 (H) 70 - 100 MG/DL Specimen Performing Laboratory [facility] [address] [place] [address] * POC GLUCOSE (12/03/2017 10:29 PM) Component Value Ref Range Glucose, POC 104 (H) 70 - 100 MG/DL Specimen Performing Laboratory [facility] [address] [place] [address] * POC GLUCOSE (12/03/2017 9:55 PM) Component Value Ref Range Glucose, POC 100 70 - 100 MG/DL Specimen Performing Laboratory [facility] [address] [place] [address] * POC GLUCOSE (12/03/2017 8:54 PM) Component Value Ref Range Glucose, POC 142 (H) 70 - 100 MG/DL Specimen Performing Laboratory [facility] [address] [place] [address] * POC GLUCOSE (12/03/2017 7:47 PM) Component Value Ref Range Glucose, POC 228 (H) 70 - 100 MG/DL Specimen Performing Laboratory [facility] [address] [place] [address] * POC GLUCOSE (12/03/2017 6:55 PM) Component Value Ref Range Glucose, POC 247 (H) 70 - 100 MG/DL Specimen Performing Laboratory [address] [address] * POC GLUCOSE (12/03/2017 5:45 PM) Component Value Ref Range Glucose, POC 233 (H) 70 - 100 MG/DL Specimen Performing Laboratory [facility] [address] [place] [address] * POC GLUCOSE (12/03/2017 4:54 PM) Component Value Ref Range Glucose, POC 252 (H) 70 - 100 MG/DL Specimen Performing Laboratory [address] [address] * POC GLUCOSE (12/03/2017 3:36 PM) Component Value Ref Range Glucose, POC 278 (H) 70 - 100 MG/DL Specimen Performing Laboratory [facility] [address] [place] [address] * POC GLUCOSE (12/03/2017 2:36 PM) Component Value Ref Range Glucose, POC 285 (H) 70 - 100 MG/DL Specimen Performing Laboratory [facility] [address] [place] [address] * POC GLUCOSE (12/03/2017 1:36 PM) Component Value Ref Range Glucose, POC 216 (H) 70 - 100 MG/DL Specimen Performing Laboratory [facility] [address] [place] [address] * POC GLUCOSE (12/03/2017 12:33 PM) Component Value Ref Range Glucose, POC 159 (H) 70 - 100 MG/DL Specimen Performing Laboratory [facility] [address] [place] [address], [place] [address] * POC GLUCOSE (12/03/2017 11:27 AM) Component Value Ref Range Glucose, POC 214 (H) 70 - 100 MG/DL Specimen Performing Laboratory MAIN [facility] [address] [place] [address] * CHEST SINGLE VIEW (12/03/2017 11:01 AM) Specimen Performing Laboratory [facility] RAD RESULTS Impressions Decreased depth of inspiration with persistent small left pleural effusion and mild bibasilar atelectasis. Finalized by Kathie Rivera M.D. on 12/03/2017 11:28 AM. Dictated by Kathie Rivera M.D. on 12/03/2017 11:27 AM. Narrative CHEST SINGLE VIEW Indication: s/p chest tube removal. Comparison: Study done earlier the same day. Findings: There is a decreased depth of inspiration. The heart and pulmonary vasculature are unremarkable. There is a persistent small left pleural effusion and mild bibasilar atelectasis. The Clinton-Brian catheter and thoracostomy tubes have been removed. No pneumothorax is identified. Procedure Note Interface, Radiant Results - 12/03/2017 11:31 AM CDT CHEST SINGLE VIEW Indication: s/p chest tube removal. Comparison: Study done earlier the same day. Findings: There is a decreased depth of inspiration. The heart and pulmonary vasculature are unremarkable. There is a persistent small left pleural effusion and mild bibasilar atelectasis. The Clinton-Brian catheter and thoracostomy tubes have been removed. No pneumothorax is identified. IMPRESSION Decreased depth of inspiration with persistent small left pleural effusion and mild bibasilar atelectasis. Finalized by Kathie Rivera M.D. on 12/03/2017 11:28 AM. Dictated by Kathie Rivera M.D. on 12/03/2017 11:27 AM. * POC GLUCOSE (12/03/2017 10:31 AM) Component Value Ref Range Glucose, POC 241 (H) 70 - 100 MG/DL Specimen Performing Laboratory [facility] [address] [place] [address] * POC GLUCOSE (12/03/2017 9:14 AM) Component Value Ref Range Glucose, POC 182 (H) 70 - 100 MG/DL Specimen Performing Laboratory [facility]IN [facility] [address] [place] [address] * POC GLUCOSE (12/03/2017 7:56 AM) Component Value Ref Range Glucose, POC 111 (H) 70 - 100 MG/DL Specimen Performing Laboratory [facility]IN [facility] [address] [place] [address] * POC GLUCOSE (12/03/2017 7:02 AM) Component Value Ref Range Glucose, POC 121 (H) 70 - 100 MG/DL Specimen Performing Laboratory [facility]IN LAB [address] [place] [address] * POC GLUCOSE (12/03/2017 6:06 AM) Component Value Ref Range Glucose, POC 117 (H) 70 - 100 MG/DL Specimen Performing Laboratory [facility] [address] [place] [address] * POC GLUCOSE (12/03/2017 4:57 AM) Component Value Ref Range Glucose, POC 109 (H) 70 - 100 MG/DL Specimen Performing Laboratory [facility]IN [facility] [address] [place] [address] * CHEST SINGLE VIEW (12/03/2017 4:36 AM) Specimen Performing Laboratory [facility] RAD RESULTS Impressions 1. Interval extubation. Remaining indwelling medical devices in similar position. 2. Small left pleural effusion with mild left basilar atelectasis. Approved by Rubi Chaudhari M.D. on 12/03/2017 11:16 AM By my electronic signature, I attest that I have personally reviewed the images for this examination and formulated the interpretations and opinions expressed in this report Finalized by Dakota Lan M.D. on 12/03/2017 1:05 PM. Dictated by Rubi Chaudhari M.D. on 12/03/2017 11:15 AM. Narrative CHEST SINGLE VIEW Clinical Indication: Female, 62 years old. Atelectasis Comparison: Chest radiograph dated 12/02/2017 Findings: There is a right IJ Clinton-Brian catheter, mediastinal drain, and 2 left thoracostomy tubes in place. There is a metallic stent projecting over the left ventricle. Right IJ Clinton-Brian catheter is in similar position. Removal of endotracheal and orogastric tubes. Cardiac silhouette is stable. Previous median sternotomy and CABG. There is limited depth of inspiration. Small left pleural effusion. No pneumothorax. Procedure Note Interface, Radiant Results - 12/03/2017 1:08 PM CDT CHEST SINGLE VIEW Clinical Indication: Female, 62 years old. Atelectasis Comparison: Chest radiograph dated 12/02/2017 Findings: There is a right IJ Clinton-Brian catheter, mediastinal drain, and 2 left thoracostomy tubes in place. There is a metallic stent projecting over the left ventricle. Right IJ Clinton-Brian catheter is in similar position. Removal of endotracheal and orogastric tubes. Cardiac silhouette is stable. Previous median sternotomy and CABG. There is limited depth of inspiration. Small left pleural effusion. No pneumothorax. IMPRESSION 1. Interval extubation. Remaining indwelling medical devices in similar position. 2. Small left pleural effusion with mild left basilar atelectasis. Approved by Rubi Chaudhari M.D. on 12/03/2017 11:16 AM By my electronic signature, I attest that I have personally reviewed the images for this examination and formulated the interpretations and opinions expressed in this report Finalized by Dakota Lan M.D. on 12/03/2017 1:05 PM. Dictated by Rubi Chaudhari M.D. on 12/03/2017 11:15 AM. * MAGNESIUM (12/03/2017 4:04 AM) Component Value Ref Range Magnesium 3.3 (H) 1.6 - 2.6 mg/dL Specimen Performing Laboratory Blood MAIN [facility] [address] [place] [address] * BASIC METABOLIC PANEL (12/03/2017 4:04 AM) Component Value Ref Range Sodium 141 137 - 147 MMOL/L Potassium 4.4 3.5 - 5.1 MMOL/L Chloride 112 (H) 98 - 110 MMOL/L CO2 22 21 - 30 MMOL/L Anion Gap 7 3 - 12 Glucose 121 (H) 70 - 100 MG/DL Blood Urea Nitrogen 17 7 - 25 MG/DL Creatinine 0.68 0.4 - 1.00 MG/DL Calcium 8.7 8.5 - 10.6 MG/DL eGFR Non >60 [...] Performing Laboratory Blood [facility] [address] [place] [address] * CBC (12/03/2017 4:04 AM) Component Value Ref Range White Blood Cells 7.8 4.5 - 11.0 K/UL RBC 3.04 (L) 4.0 - 5.0 M/UL Hemoglobin 8.8 (L) 12.0 - 15.0 GM/DL Hematocrit 26.8 (L) 36 - 45 % MCV 88.4 80 - 100 FL MCH 29.0 26 - 34 PG MCHC 32.8 32.0 - 36.0 G/DL RDW 13.1 11 - 15 % Platelet Count 110 (L) 150 - 400 K/UL MPV 9.6 7 - 11 FL Specimen Performing Laboratory Blood [facility] [address] [place] [address] * O2 SATURATION, MIXED VENOUS (12/03/2017 4:00 AM) Component Value Ref Range W2Xng-Rptip Venous 61.3 % Specimen Performing Laboratory Blood [facility] [address] [place], [place] [id number] * POC GLUCOSE (12/03/2017 3:53 AM) Component Value Ref Range Glucose, POC 117 (H) 70 - 100 MG/DL Specimen Performing Laboratory [facility] [address] [place], [place] [id number] * POC GLUCOSE (12/03/2017 2:03 AM) Component Value Ref Range Glucose, POC 131 (H) 70 - 100 MG/DL Specimen Performing Laboratory [facility] [address] [place] [address] * BLOOD GASES, ARTERIAL (12/03/2017 2:00 AM) Component Value Ref Range pH-Arterial 7.36 7.35 - 7.45 pCO2-Arterial 39 35 - 45 MMHG pO2-Arterial 137 (H) 80 - 100 MMHG Base Deficit-Arterial 3.1 MMOL/L O2 Sat-Arterial 98.7 95 - 99 % Ykjbbytxpes-NPB-Hct 21.8 21 - 28 MMOL/L Specimen Performing Laboratory Blood, arterial - Blood [facility] [address] [place], [place] [id number] * POTASSIUM (12/03/2017 2:00 AM) Component Value Ref Range Potassium 4.0 3.5 - 5.1 MMOL/L Specimen Performing Laboratory Blood [facility] [address] [place], [place] [id number] * POC IONIZED CALCIUM (12/03/2017 12:52 AM) Component Value Ref Range Ionized Calcium-POC 1.16 1.0 - 1.3 MMOL/L Specimen Performing Laboratory [facility]IN [facility] [address] [place] [address] * POC SODIUM (12/03/2017 12:52 AM) Component Value Ref Range Sodium-POC 145 137 - 147 MMOL/L Specimen Performing Laboratory [facility] [address] [place] [address] * POC POTASSIUM (12/03/2017 12:52 AM) Component Value Ref Range Potassium-POC 4.0 3.5 - 5.1 MMOL/L Specimen Performing Laboratory [facility] [address] [place] [address] * POC HEMATOCRIT (12/03/2017 12:52 AM) Component Value Ref Range Hemoglobin POC 8.5 (L) 12.0 - 15.0 GM/DL Hematocrit POC 25.0 (L) 36 - 45 % Specimen Performing Laboratory [facility] [address] [place] [address] * POC BLOOD GAS ARTERIAL (12/03/2017 12:52 AM) Component Value Ref Range PH-ART-POC 7.39 7.35 - 7.45 SOL4-[id number]-CDI 37 35 - 45 MMHG PO2-ART-POC 150 (H) 80 - 100 MMHG Base Def-ART-POC 3.0 MMOL/L O2 Sat-ART-POC 99.0 95 - 99 % Bppztiqzxbk-AXP-MCQ 22.2 21 - 28 MMOL/L Specimen Performing Laboratory [facility] [address] [place] [address] * POC GLUCOSE (12/03/2017 12:16 AM) Component Value Ref Range Glucose, POC 130 (H) 70 - 100 MG/DL Specimen Performing Laboratory [facility] [address] [place] [address] * O2 SATURATION, MIXED VENOUS (12/02/2017 10:45 PM) Component Value Ref Range D3Zgy-Zdpwm Venous 62.9 % Specimen Performing Laboratory Blood [facility] [address] [place] [address] * POC IONIZED CALCIUM (12/02/2017 10:42 PM) Component Value Ref Range Ionized Calcium-POC 1.09 1.0 - 1.3 MMOL/L Specimen Performing Laboratory [facility]IN [facility] [address] [place] [address] * POC SODIUM (12/02/2017 10:42 PM) Component Value Ref Range Sodium-POC 143 137 - 147 MMOL/L Specimen Performing Laboratory [facility]IN [facility] [address] [place] [address] * POC POTASSIUM (12/02/2017 10:42 PM) Component Value Ref Range Potassium-POC 3.8 3.5 - 5.1 MMOL/L Specimen Performing Laboratory [facility] [address] [place] [address] * POC HEMATOCRIT (12/02/2017 10:42 PM) Component Value Ref Range Hemoglobin POC 7.8 (L) 12.0 - 15.0 GM/DL Hematocrit POC 23.0 (L) 36 - 45 % Specimen Performing Laboratory [facility] [address] [place] [address] * POC BLOOD GAS ARTERIAL (12/02/2017 10:42 PM) Component Value Ref Range PH-ART-POC 7.51 (H) 7.35 - 7.45 [id number]-[id number]-CMR 27 (L) 35 - 45 MMHG PO2-ART-POC 171 (H) 80 - 100 MMHG Base Def-ART-POC 1.0 MMOL/L O2 Sat-ART-POC 100.0 (H) 95 - 99 % Tcdobgufdmh-TEW-UMB 21.5 21 - 28 MMOL/L Specimen Performing Laboratory [facility] [address] [place] [address] * POC GLUCOSE (12/02/2017 10:09 PM) Component Value Ref Range Glucose, POC 133 (H) 70 - 100 MG/DL Specimen Performing Laboratory MAIN [facility] [address] [place] [address] * POTASSIUM (12/02/2017 9:00 PM) Component Value Ref Range Potassium 3.8 3.5 - 5.1 MMOL/L Specimen Performing Laboratory Blood [facility] [address] [place] [address] * MAGNESIUM (12/02/2017 9:00 PM) Component Value Ref Range Magnesium 3.8 (H) 1.6 - 2.6 mg/dL Specimen Performing Laboratory Blood [facility]IN [facility] [address] [place] [address] * POC GLUCOSE (12/02/2017 8:58 PM) Component Value Ref Range Glucose, POC 137 (H) 70 - 100 MG/DL Specimen Performing Laboratory [facility] [address] [place] [address] * POC GLUCOSE (12/02/2017 8:07 PM) Component Value Ref Range Glucose, POC 154 (H) 70 - 100 MG/DL Specimen Performing Laboratory [facility] [address] [place] [address] * POC GLUCOSE (12/02/2017 7:03 PM) Component Value Ref Range Glucose, POC 157 (H) 70 - 100 MG/DL Specimen Performing Laboratory [facility] [address] [place] [address] * POC GLUCOSE (12/02/2017 6:17 PM) Component Value Ref Range Glucose, POC 169 (H) 70 - 100 MG/DL Specimen Performing Laboratory [facility] [address] [place] [address] * POC GLUCOSE (12/02/2017 5:02 PM) Component Value Ref Range Glucose, POC 165 (H) 70 - 100 MG/DL Specimen Performing Laboratory [facility] [address] [place] [address] * POC BLOOD GAS ARTERIAL (12/02/2017 5:01 PM) Component Value Ref Range PH-ART-POC 7.44 7.35 - 7.45 [id number] 32 (L) 35 - 45 MMHG PO2-ART-POC 81 80 - 100 MMHG Base Def-ART-POC 3.0 MMOL/L O2 Sat-ART-POC 96.0 95 - 99 % Ehclnwfxwjz-JKY-VIM 21.7 21 - 28 MMOL/L Specimen Performing Laboratory [facility] [address] [place] [address] * POC GLUCOSE (12/02/2017 4:35 PM) Component Value Ref Range Glucose, POC 155 (H) 70 - 100 MG/DL Specimen Performing Laboratory [facility] [address] [place] [address] * POC IONIZED CALCIUM (12/02/2017 4:32 PM) Component Value Ref Range Ionized Calcium-POC 1.15 1.0 - 1.3 MMOL/L Specimen Performing Laboratory [facility] [address] [place] [address] * POC SODIUM (12/02/2017 4:32 PM) Component Value Ref Range Sodium-POC 143 137 - 147 MMOL/L Specimen Performing Laboratory [facility] [address] [place] [id number] * POC POTASSIUM (12/02/2017 4:32 PM) Component Value Ref Range Potassium-POC 3.7 3.5 - 5.1 MMOL/L Specimen Performing Laboratory [facility] [address] [place] [address] * POC HEMATOCRIT (12/02/2017 4:32 PM) Component Value Ref Range Hemoglobin POC 7.5 (L) 12.0 - 15.0 GM/DL Hematocrit POC 22.0 (L) 36 - 45 % Specimen Performing Laboratory [facility] [address] [place], [place] [id number] * POC BLOOD GAS ARTERIAL (12/02/2017 4:32 PM) Component Value Ref Range PH-ART-POC 7.49 (H) 7.35 - 7.45 COF3-NJF-RND 33 (L) 35 - 45 MMHG PO2-ART-POC 299 (H) 80 - 100 MMHG Base Ex-ART-POC 2.0 MMOL/L O2 Sat-ART-POC 100.0 (H) 95 - 99 % Kqyxjnhqpyq-PYX-YND 25.0 21 - 28 MMOL/L Specimen Performing Laboratory [facility] [address] [place], [place] [id number] * MAGNESIUM (12/02/2017 4:30 PM) Component Value Ref Range Magnesium 3.1 (H) 1.6 - 2.6 mg/dL Specimen Performing Laboratory Blood [facility] [address] [place] [address] * PTT (APTT) (12/02/2017 4:30 PM) Component Value Ref Range APTT 29.3 21.0 - 39.0 SEC Specimen Performing Laboratory Blood [facility] [address] [place], [place] [id number] * PROTIME INR (PT) (12/02/2017 4:30 PM) Component Value Ref Range INR 1.1 0.8 - 1.2 Specimen Performing Laboratory Blood [facility] [address] [place] [address] * BASIC METABOLIC PANEL (12/02/2017 4:30 PM) Component Value Ref Range Sodium 141 137 - 147 MMOL/L Potassium 3.9 3.5 - 5.1 MMOL/L Chloride 111 (H) 98 - 110 MMOL/L CO2 22 21 - 30 MMOL/L Anion Gap 8 3 - 12 Glucose 166 (H) 70 - 100 MG/DL Blood Urea Nitrogen 15 7 - 25 MG/DL Creatinine 0.65 0.4 - 1.00 MG/DL Calcium 8.4 (L) 8.5 - 10.6 MG/DL eGFR Non >60 [...] Performing Laboratory Blood [facility] [address] [place] [address] * CBC (12/02/2017 4:30 PM) Component Value Ref Range White Blood Cells 7.5 4.5 - 11.0 K/UL RBC 2.91 (L) 4.0 - 5.0 M/UL Hemoglobin 8.8 (L) 12.0 - 15.0 GM/DL Hematocrit 25.1 (L) 36 - 45 % MCV 86.2 80 - 100 FL MCH 30.3 26 - 34 PG MCHC 35.2 32.0 - 36.0 G/DL RDW 13.1 11 - 15 % Platelet Count 112 (L) 150 - 400 K/UL MPV 9.4 7 - 11 FL Specimen Performing Laboratory Blood [facility] [address] [place] [address] * LINE PLCMT 1V CXR (12/02/2017 4:18 PM) Specimen Performing Laboratory [facility] RESULTS Impressions 1.Interval median sternotomy with [...] mediastinal drain are noted. A right IJ Clinton-Brian catheter is seen with distal tip overlying [...] mediastinal drain are noted. A right IJ Clinton-Brian catheter is seen with distal tip overlying [...] Campbell M.D. on 12/02/2017 4:46 PM. * POC IONIZED CALCIUM (12/02/2017 3:06 PM) Component Value Ref Range Ionized Calcium-POC 1.18 1.0 - 1.3 MMOL/L Specimen Performing Laboratory [facility] [address] [place] [address] * POC SODIUM (12/02/2017 3:06 PM) Component Value Ref Range Sodium-POC 142 137 - 147 MMOL/L Specimen Performing Laboratory [facility] [address] [place] [address] * POC POTASSIUM (12/02/2017 3:06 PM) Component Value Ref Range Potassium-POC 4.2 3.5 - 5.1 MMOL/L Specimen Performing Laboratory [facility] [address] [place] [address] * POC HEMATOCRIT (12/02/2017 3:06 PM) Component Value Ref Range Hemoglobin POC 8.5 (L) 12.0 - 15.0 GM/DL Hematocrit POC 25.0 (L) 36 - 45 % Specimen Performing Laboratory [facility] [address] [place] [address] * POC BLOOD GAS ARTERIAL (12/02/2017 3:06 PM) Component Value Ref Range PH-ART-POC 7.51 (H) 7.35 - 7.45 [id number] 34 (L) 35 - 45 MMHG PO2-ART-POC 439 (H) 80 - 100 MMHG Base Ex-ART-POC 4.0 MMOL/L O2 Sat-ART-POC 100.0 (H) 95 - 99 % Dyujfxohgyt-[id number]-HKD 27.3 21 - 28 MMOL/L Specimen Performing Laboratory [facility] [address] [place] [address] * POC GLUCOSE (12/02/2017 3:04 PM) Component Value Ref Range Glucose, POC 132 (H) 70 - 100 MG/DL Specimen Performing Laboratory [facility] [address] [place] [address] * POC IONIZED CALCIUM (12/02/2017 2:22 PM) Component Value Ref Range Ionized Calcium-POC 1.03 1.0 - 1.3 MMOL/L Specimen Performing Laboratory [facility] [address] [place] [address] * POC SODIUM (12/02/2017 2:22 PM) Component Value Ref Range Sodium-POC 141 137 - 147 MMOL/L Specimen Performing Laboratory [facility] [address] [place] [address] * POC POTASSIUM (12/02/2017 2:22 PM) Component Value Ref Range Potassium-POC 5.2 (H) 3.5 - 5.1 MMOL/L Specimen Performing Laboratory [facility] [address] [place] [address] * POC HEMATOCRIT (12/02/2017 2:22 PM) Component Value Ref Range Hemoglobin POC 8.2 (L) 12.0 - 15.0 GM/DL Hematocrit POC 24.0 (L) 36 - 45 % Specimen Performing Laboratory [facility] [address] [place] [address] * POC BLOOD GAS ARTERIAL (12/02/2017 2:22 PM) Component Value Ref Range PH-ART-POC 7.46 (H) 7.35 - 7.45 [id number] 40 35 - 45 MMHG PO2-ART-POC 566 (H) 80 - 100 MMHG Base Ex-ART-POC 5.0 MMOL/L O2 Sat-ART-POC 100.0 (H) 95 - 99 % Gqmbouhwtpy-IPC-OAQ 28.6 (H) 21 - 28 MMOL/L Specimen Performing Laboratory [facility] [address] [place] [address] * POC GLUCOSE (12/02/2017 2:20 PM) Component Value Ref Range Glucose, POC 116 (H) 70 - 100 MG/DL Specimen Performing Laboratory [facility] [address] [place] [address] * POC IONIZED CALCIUM (12/02/2017 1:52 PM) Component Value Ref Range Ionized Calcium-POC 0.95 (L) 1.0 - 1.3 MMOL/L Specimen Performing Laboratory [facility] [address] [place] [address] * POC SODIUM (12/02/2017 1:52 PM) Component Value Ref Range Sodium-POC 141 137 - 147 MMOL/L Specimen Performing Laboratory [facility] [address] [place] [address] * POC POTASSIUM (12/02/2017 1:52 PM) Component Value Ref Range Potassium-POC 5.9 (H) 3.5 - 5.1 MMOL/L Specimen Performing Laboratory [facility] [address] [place], [place] [id number] * POC HEMATOCRIT (12/02/2017 1:52 PM) Component Value Ref Range Hemoglobin POC 7.5 (L) 12.0 - 15.0 GM/DL Hematocrit POC 22.0 (L) 36 - 45 % Specimen Performing Laboratory [facility] [address] [place] [address] * POC BLOOD GAS ARTERIAL (12/02/2017 1:52 PM) Component Value Ref Range PH-ART-POC 7.46 (H) 7.35 - 7.45 [id number] 42 35 - 45 MMHG PO2-ART-POC 581 (H) 80 - 100 MMHG Base Ex-ART-POC 6.0 MMOL/L O2 Sat-ART-POC 100.0 (H) 95 - 99 % Rjrhgnynyzo-MBL-WXO 29.4 (H) 21 - 28 MMOL/L Specimen Performing Laboratory [facility] [address] [place] [address] * POC GLUCOSE (12/02/2017 1:49 PM) Component Value Ref Range Glucose, POC 121 (H) 70 - 100 MG/DL Specimen Performing Laboratory [facility] [address] [place] [address] * POC GLUCOSE (12/02/2017 1:30 PM) Component Value Ref Range Glucose, POC 113 (H) 70 - 100 MG/DL Specimen Performing Laboratory [facility] [address] [place] [address] * POC IONIZED CALCIUM (12/02/2017 11:49 AM) Component Value Ref Range Ionized Calcium-POC 1.20 1.0 - 1.3 MMOL/L Specimen Performing Laboratory [facility] [address] [place] [address] * POC SODIUM (12/02/2017 11:49 AM) Component Value Ref Range Sodium-POC 144 137 - 147 MMOL/L Specimen Performing Laboratory [facility] [address] [place] [address] * POC POTASSIUM (12/02/2017 11:49 AM) Component Value Ref Range Potassium-POC 3.5 3.5 - 5.1 MMOL/L Specimen Performing Laboratory [facility] [address] [place] [address] * POC HEMATOCRIT (12/02/2017 11:49 AM) Component Value Ref Range Hemoglobin POC 10.9 (L) 12.0 - 15.0 GM/DL Hematocrit POC 32.0 (L) 36 - 45 % Specimen Performing Laboratory [facility] [address] [place] [address] * POC BLOOD GAS ARTERIAL (12/02/2017 11:49 AM) Component Value Ref Range PH-ART-POC 7.39 7.35 - 7.45 [id number] 43 35 - 45 MMHG PO2-ART-POC 259 (H) 80 - 100 MMHG Base Ex-ART-POC 1.0 MMOL/L O2 Sat-ART-POC 100.0 (H) 95 - 99 % Jkqyalmdacd-IAU-HMH 25.8 21 - 28 MMOL/L Specimen Performing Laboratory [facility] [address] [place] [address] * POC IONIZED CALCIUM (12/02/2017 11:37 AM) Component Value Ref Range Ionized Calcium-POC 1.22 1.0 - 1.3 MMOL/L Specimen Performing Laboratory [facility] [address] [place] [address] * POC SODIUM (12/02/2017 11:37 AM) Component Value Ref Range Sodium-POC 144 137 - 147 MMOL/L Specimen Performing Laboratory [facility] [address] [place] [address] * POC POTASSIUM (12/02/2017 11:37 AM) Component Value Ref Range Potassium-POC 3.6 3.5 - 5.1 MMOL/L Specimen Performing Laboratory [facility] [address] [place] [address] * POC HEMATOCRIT (12/02/2017 11:37 AM) Component Value Ref Range Hemoglobin POC 11.6 (L) 12.0 - 15.0 GM/DL Hematocrit POC 34.0 (L) 36 - 45 % Specimen Performing Laboratory [facility] [address] [place] [address] * POC BLOOD GAS ARTERIAL (12/02/2017 11:37 AM) Component Value Ref Range PH-ART-POC 7.35 7.35 - 7.45 [id number] 47 (H) 35 - 45 MMHG PO2-ART-POC 311 (H) 80 - 100 MMHG Base Ex-ART-POC 0.0 MMOL/L O2 Sat-ART-POC 100.0 (H) 95 - 99 % Cwdxobytxmz-JAJ-LKC 25.8 21 - 28 MMOL/L Specimen Performing Laboratory [facility] [address] [place] [address] * POC GLUCOSE (12/02/2017 11:35 AM) Component Value Ref Range Glucose, POC 99 70 - 100 MG/DL Specimen Performing Laboratory [facility] [address] [place] [address] * POC GLUCOSE (12/02/2017 8:22 AM) Component Value Ref Range Glucose, POC 102 (H) 70 - 100 MG/DL Specimen Performing Laboratory [facility] [address] [place] [address] in this encounter Visit Diagnoses Diagnosis Coronary artery disease involving [place] coronary artery of [place] heart with unstable angina pectoris (HCC) - Primary Coronary artery disease involving [place] heart, angina presence unspecified, unspecified vessel or lesion type Acute on chronic combined systolic and diastolic heart failure, NYHA class 2 ( [facility]) Acute on chronic combined systolic and diastolic heart failure Essential hypertension Unspecified essential hypertension History of tobacco abuse Personal history of tobacco use, presenting hazards to health Mixed hyperlipidemia On mechanically assisted ventilation ([facility]) PAD (peripheral artery disease) ([facility]) Peripheral vascular disease, unspecified Type 2 diabetes mellitus with complication, with long-term current use of insulin ([facility]) Tooth decay Unspecified dental caries Admitting Diagnoses Diagnosis Coronary artery disease involving [place] coronary artery of [place] heart with unstable angina pectoris ([facility]) - Coronary artery disease involving [place] coronary artery of [place] heart with unstable angina pectoris ([facility]) [I25.110] CAD (coronary artery disease) Administered Medications Medication Order MAR Action Action Date Dose Rate Site acetaminophen (TYLENOL) tablet 1,000 mg Given 12/05/2017 1,000 mg 1,000 mg, Oral, EVERY 6 HOURS, 16 12:48 CDT doses, First dose on Thu12/02/17 at 1615, Last dose on Thu12/06/17 at 1300, Acetaminophen dose not to exceed 4 gm daily Given 12/06/2017 1,000 mg 05:57 CDT Given 12/06/2017 1,000 mg 13:05 CDT acetaminophen (TYLENOL) tablet 650 mg Given 12/08/2017 650 mg 650 mg, Oral, EVERY 6 HOURS PRN, 07:02 CDT Starting 12/07/17 at 0000, Until Thu12/08/17 at 1807, Pain non-opioid: may be used alone or in combination with opioid analgesia, Temp > 38.5 C, Start POD #5, 6 hours after last scheduled acetaminophen dose. ACETAMINOPHEN DOSE NOT TO EXCEED 4GM DAILY. albumin 5% injection 250 mL Given - 12/02/2017 250 mL 200 mL/hr 250 mL, 250 mL, Intravenous, at 200 Bag 16:26 CDT mL/hr, ONCE, 1 dose, Thu12/02/17 at 1630 albumin 5% injection 250 mL Given - 12/02/2017 250 mL 250 mL, 250 mL, Intravenous, ONCE, 1 Bag 16:50 CDT dose, Thu12/02/17 at 1700 albumin 5% injection 250 mL Given - 12/02/2017 250 mL 250 mL/hr 250 mL, 250 mL, Intravenous, at 250 Bag 20:09 CDT mL/hr, ONCE, 1 dose, Thu12/02/17 at 2015 albumin 5% injection 250 mL Given - New 12/02/2017 250 mL 500 mL/hr 250 mL, 250 mL, Intravenous, at 500 Bag 21:21 CDT mL/hr, ONCE, 1 dose, Thu12/02/17 at 2130 albuterol (PROAIR HFA, VENTOLIN HFA, or PROVENTIL HFA) inhaler 2 puff 2 puff, Inhalation, RT EVERY 4 HOURS PRN, Starting Bettina 12/03/17 at 1306, Until Thu12/08/17 at 1807, RT PROTOCOL, When administered by RT, will be per RT policy. albuterol 0.083% (PROVENTIL; VENTOLIN) Given 12/08/2017 2.5 mg nebulizer solution 2.5 mg 03:27 CDT 2.5 mg, Inhalation, RT EVERY 4 HOURS PRN, Starting Thu12/04/17 at 2109, Until Thu12/08/17 at 1807, RT PROTOCOL, When administered by RT, will be per RT policy. Given 12/08/2017 2.5 mg 08:11 CDT aminocaproic acid (AMICAR) 12.5 g in Dose/Rate 12/02/2017 2 g/hr 40 mL/ hr sodium chloride 0.9% (NS) IV infusion Verify 16:06 CDT 2 g/hr (40 mL/hr), Intravenous, 250 mL, CONTINUOUS (COOLING PIPE INSPECTOR FROM RX), Starting Thu12/02/17 at 1615, Until Thu12/02/17 at 2214, Continuous infusion until OR bag is complete (approx 2 hours) amiodarone (CORDARONE) tablet 400 mg Given 12/05/2017 400 mg 400 mg, Oral, TWICE DAILY, First dose on 08:53 CDT Bettina 12/03/17 at 0900, Until Discontinued, Start POD #1 Given 12/05/2017 400 mg 20:12 CDT Given 12/06/2017 400 mg 08:58 CDT aspirin chewable tablet 81 mg Given 12/06/2017 81 mg 81 mg, Oral, DAILY, First dose on Thu 08:58 CDT 12/02/17 at 2330, Until Discontinued, Give first dose 8 hours after surgery. Hold if chest tube output >150 mL/day. Hold for platelet count <80,000. May give per NG tube. Given 12/07/2017 81 mg 09:14 CDT Given 12/08/2017 81 mg 08:57 CDT atorvastatin (LIPITOR) tablet 40 mg Given 12/06/2017 40 mg 40 mg, Oral, DAILY, First dose on Thu 08:59 CDT 12/02/17 at 1700, Until Discontinued Given 12/07/2017 40 mg 09:15 CDT Given 12/08/2017 40 mg 08:56 CDT benzocaine/menthol (CHLORASEPTIC) Given 12/04/2017 1 lozenge lozenge 1 lozenge 23:58 CDT 1 lozenge, Oral, EVERY 2 HOURS PRN, Starting Thu12/04/17 at 2314, Until Thu12/08/17 at 1807, Mouth/Throat Pain ceFAZolin (ANCEF) IVP 1 g Given 12/02/2017 1 g 1 g, Intravenous, EVERY 8 HOURS, 3 23:27 CDT doses, First dose on Thu12/02/17 at 2315, Last dose on Thu12/03/17 at 1515, IV PUSH -- RECONSTITUTE each 1 g vial by adding 10 mL 0.9% NACL Given 12/03/2017 1 g 07:31 CDT Given 12/03/2017 1 g 15:28 CDT dexmedetomidine (PRECEDEX) 400 mcg in Dose/Rate 12/02/2017 0.7 12.5 mL/ hr sodium chloride 0.9% (NS) 100 mL IV Verify 16:07 CDT mcg/kg/hr infusion 0.2-1 mcg/kg/hr 71.3 kg Dosing weight (3.565-17.825 mL/hr, rounded to 3.6-17.8 mL/hr) 100 mL, at 3.6-17.8 mL/hr, Intravenous, CONTINUOUS, Starting Thu12/02/17 at 1615, Until Thu12/03/17 at 0713, -Initiate at 0.2 mcg/kg/hr and maintain for 30 minutes -Titrate to keep: RASS of 0 to -2 a.) Titrate infusion in increments of 0.1 mcg/kg/hour at 5 minute intervals until goal sedation level achieved or maintenance exceeds 1.0 mcg/kg/hr b.) If HR < 50 or SBP < 90 mmHg hold for 10 minutes then restart at dose reduced by 0.3 mcg/kg/min c.) Notify physician for persistent hypotension (SBP < 90 mmHg) or bradycardia (HR < 50) over 15 minutes d.) For breakthrough agitation NOTIFY PHYSICIAN and consider bolus of 1 mcg/kg over 20 min if HR and BP are acceptable. e.) Notify physician if maintenance exceeds 1 mcg/kg/hr -Taper agent continuously to lowest effective dose to achieve desired level of sedation keeping patient calm and able to participate in care. famotidine (PEPCID) injection 20 mg Given 12/02/2017 20 mg 20 mg, Intravenous, TWICE DAILY, First 20:54 CDT dose on Thu12/02/17 at 2100, Until Discontinued, DILUTE W/ 10ML NS OR D5W. GIVE IV PUSH OVER 2 MIN furosemide (LASIX) injection 40 mg Given 12/04/2017 40 mg 40 mg, Intravenous, ONCE, 1 dose, Thu 08:29 CDT 12/04/17 at 0745, PROTECT FROM LIGHT furosemide (LASIX) injection 40 mg Given 12/05/2017 40 mg 40 mg, Intravenous, TWICE DAILY, 2 08:53 CDT doses, First dose on Thu12/05/17 at 0900, Last dose on Thu12/05/17 at 1700, PROTECT FROM LIGHT Given 12/05/2017 40 mg 17:56 CDT furosemide (LASIX) injection 40 mg Given 12/06/2017 40 mg 40 mg, Intravenous, ONCE, 1 dose, Sun 08:58 CDT 12/06/17 at 0800, PROTECT FROM LIGHT furosemide (LASIX) injection 40 mg Given 12/07/2017 40 mg 40 mg, Intravenous, TWICE DAILY, 2 09:15 CDT doses, First dose on Thu12/07/17 at 0900, Last dose on Thu12/07/17 at 1700, PROTECT FROM LIGHT Given 12/07/2017 40 mg 18:28 CDT furosemide (LASIX) injection 40 mg Given 12/08/2017 40 mg 40 mg, Intravenous, ONCE, 1 dose, Tu 08:58 CDT 12/08/17 at 0715, PROTECT FROM LIGHT heparin (porcine) PF syringe 5,000 Units Given 12/07/2017 5,000 Units Abdominal 5,000 Units, Subcutaneous, EVERY 8 13:51 CDT Tissue HOURS, First dose on Thu12/07/17 at 1400, Until Discontinued, NOTE: This is a HIGH ALERT Medication. Given 12/07/2017 5,000 Units Abdominal 20:14 CDT Tissue insulin aspart U-100 (NOVOLOG FLEXPEN) Given 12/07/2017 2 Units Arm, Left injection PEN 0-14 Units 18:25 CDT 0-14 Units, Subcutaneous, BEFORE MEALS AND AT BEDTIME, First dose on Thu12/04/17 at 0700, Until Discontinued, -POC glucose 140-180mg/dL at , , administer 2 units insulin, at 21, 03* administer 0 units. -POC glucose 181-220mg/dL at , , administer 4 units insulin, at , 03* administer 2 units. -POC glucose 221-260mg/dL at , , administer 6 units insulin, at , 03* administer 4 units. -POC glucose 261-300mg/dL at , , administer 8 units insulin, at , 03* administer 6 units. -POC glucose 301-350mg/dL at , , administer 10 units insulin, at , 03* administer 8 units. -POC glucose 351-400mg/dL at , , administer 12 units insulin, at , 03* administer 10 units. -POC glucose >400mg/dL at , , administer 14 units insulin, at , 03* administer 12 units. *only if ordered 5x's daily For POCT glucose >350mg/dL give correction bolus and recheck POCT glucose in 2 hours. If POCT glucose at 2 hours >300mg/dL call physician for further orders. For patients who are not eating meals, continue to administer the appropriate correction factor. NOTE: This is a HIGH ALERT Medication. Given 12/07/2017 2 Units Abdomen:LUQ 21:32 CDT Given 12/08/2017 6 Units Abdominal 11:26 CDT Tissue insulin aspart U-100 (NOVOLOG FLEXPEN) Given 12/03/2017 2 Units Abdominal injection PEN 4 Units 19:46 CDT Tissue 4 Units, Subcutaneous, THREE TIMES DAILY AFTER MEALS, First dose on Bettina 12/03/17 at 1900, Until Discontinued, - Post Meal Dosing: give scheduled Aspart (Novolog) insulin at the completion of meal based on % eaten. Adjust dose based on % of meal eaten. - >50% of meal eaten, give scheduled dose - 10-50% of meal eaten, give 1/2 of schedule dose (round dose to the nearest unit) - <10% of meal eaten, hold scheduled dose. NOTE: Rapid acting insulins should be given with food/meal. Use caution when patient is NPO. NOTE: This is a HIGH ALERT Medication. Given 12/04/2017 4 Units Arm, Right 08:29 CDT Given 12/04/2017 4 Units Arm, Left 11:54 CDT insulin aspart U-100 (NOVOLOG FLEXPEN) Given 12/07/2017 6 Units Arm, Left injection PEN 6 Units 09:17 CDT 6 Units, Subcutaneous, THREE TIMES DAILY AFTER MEALS, First dose on Thu12/04/17 at 1900, Until Discontinued, - Post Meal Dosing: give scheduled Aspart (Novolog) insulin at the completion of meal based on % eaten. Adjust dose based on % of meal eaten. - >50% of meal eaten, give scheduled dose - 10-50% of meal eaten, give 1/2 of schedule dose (round dose to the nearest unit) - <10% of meal eaten, hold scheduled dose. NOTE: Rapid acting insulins should be given with food/meal. Use caution when patient is NPO. NOTE: This is a HIGH ALERT Medication. Given 12/07/2017 6 Units Abdominal 13:51 CDT Tissue Given 12/08/2017 3 Units Abdominal 08:58 CDT Tissue insulin aspart U-100 (NOVOLOG FLEXPEN) Given 12/08/2017 8 Units Abdominal injection PEN 8 Units 14:54 CDT Tissue 8 Units, Subcutaneous, THREE TIMES DAILY AFTER MEALS, First dose on Thu12/08/17 at 1300, Until Discontinued, - Post Meal Dosing: give scheduled Aspart (Novolog) insulin at the completion of meal based on % eaten. Adjust dose based on % of meal eaten. - >50% of meal eaten, give scheduled dose - 10-50% of meal eaten, give 1/2 of schedule dose (round dose to the nearest unit) - <10% of meal eaten, hold scheduled dose. NOTE: Rapid acting insulins should be given with food/meal. Use caution when patient is NPO. NOTE: This is a HIGH ALERT Medication. insulin glargine (LANTUS SOLOSTAR, Given 12/03/2017 20 Units Abdomen: LLQ BASAGLAR) injection PEN 20 Units 21:09 CDT 20 Units, Subcutaneous, AT BEDTIME DAILY, First dose on Bettina 12/03/17 at 2200, Until Discontinued, Continue if NPO. DO NOT mix with other insulins -- Do not mix with other insulins -- NOTE: This is a HIGH ALERT Medication. Given 12/04/2017 20 Units Abdomen:LLQ 22:17 CDT insulin glargine (LANTUS SOLOSTAR, Given 12/05/2017 26 Units Arm, Right BASAGLAR) injection PEN 26 Units 21:26 CDT 26 Units, Subcutaneous, AT BEDTIME DAILY, First dose on 12/05/17 at 2200, Until Discontinued, Continue if NPO. DO NOT mix with other insulins -- Do not mix with other insulins -- NOTE: This is a HIGH ALERT Medication. Given 12/06/2017 26 Units Abdominal 21:09 CDT Tissue Given 12/07/2017 26 Units Abdominal 21:32 CDT Tissue insulin regular (NOVOLIN R) 100 Units in Dose/Rate 12/03/2017 7 Units/hr 7 mL/hr sodium chloride 0.9% (NS) 100 mL IV drip Change 18:56 CDT (std conc) 1-32 Units/hr (1-32 mL/hr) 100 mL, at 1-32 mL/hr, Intravenous, TITRATE DIRECTED , Starting Thu12/02/17 at 1615, Until Thu12/04/17 at 1359, (Administration Instructions were omitted from this summary because they were too long) Dose/Rate Change 12/03/2017 8.5 Units/hr 8.5 mL/hr 19:49 CDT Infusion Restarted 12/03/2017 5.5 Units/hr 5.5 mL/hr 21:29 CDT lidocaine (LIDODERM) 5 % topical patch Patch/Topica 12/06/2017 2 patches Chest, Left 1-2 patch l Applied 08:59 CDT 1-2 patch, Topical, Administer over 12 Hours, DAILY, First dose on Bettina 12/03/17 at 1200, Until Discontinued, NURSING PLEASE NOTE: Apply patch ONCE DAILY to affected area and REMOVE after designated duration. Apply only to intact skin. Patch may be cut to fit affected area. Patch/Topical Applied 12/07/2017 1 patch Chest, Left 09:21 CDT Patch/Topical Applied 12/08/2017 1 patch Chest, Left 08:57 CDT LIDOCAINE (PF) 10 MG/ML (1 %) IJ SOLN Given 12/02/2017 2 mL (Cabinet Override) 08:23 CDT NOW, 1 dose, Thu12/02/17 at 0800, Created by yue bejarano lisinopril (PRINIVIL; ZESTRIL) tablet 5 Given 12/08/2017 5 mg mg 09:09 CDT 5 mg, Oral, DAILY, First dose on Thu12/08/17 at 0915, Until Discontinued magnesium sulfate 4 g/50 mL IVPB Given - New 12/02/2017 4 g 4 g, Intravenous, 50 mL, Administer over Bag 16:45 CDT 240 Minutes, ONCE, 1 dose, Thu12/02/17 at 1615, Give upon arrival to ICU. Check with physician prior to infusing if SCr >2 mg/dL. Do not give if ESRD patient on HD. Check Mg++ level after completion of infusion. Each 1gm delivers 8.1 mEq Magnesium. metoclopramide (REGLAN) injection 10 mg Given 12/03/2017 10 mg 10 mg, Intravenous, ONCE, 1 dose, Bettina 00:19 CDT 12/03/17 at 0015 metoprolol tartrate (LOPRESSOR) tablet Given 12/02/2017 12.5 mg 12.5 mg 08:44 CDT 12.5 mg, Oral, ONCE, 1 dose, Thu12/02/17 at 0845, Give PRE-OP in all heart patients and all patients taking beta heather prior to admit. HOLD if taken in last 24 hours or SBP < 100 mmHg or HR < 60. METOPROLOL TARTRATE 25 MG PO TAB (Cabinet Override) NOW, 1 dose, Thu12/02/17 at 0845, Created by yue bejarano metoprolol XL (TOPROL XL) tablet 25 mg Given 12/06/2017 25 mg 25 mg, Oral, DAILY, First dose on Sat 08:58 CDT 12/05/17 at 0900, Until Discontinued, Hold for systolic BP < 100 tablets may be cut in half, DO NOT CRUSH or CHEW Given 12/07/2017 25 mg 09:15 CDT Given 12/08/2017 25 mg 08:56 CDT niCARdipine (cardENE) 20 mg/NS 200 mL Dose/Rate 12/02/2017 15 mg/hr 150 mL/hr infusion (std conc)(premade) Change 17:20 CDT 200 mL, 5-15 mg/hr (50-150 mL/hr), at 50-150 mL/hr, Intravenous, TITRATE DIRECTED , Starting Thu12/02/17 at 1715, Until Thu12/03/17 at 0713, Initiate at 5 mg/hr Titrate to keep: SBP < 110 mmHg first 3 hours then <150 Call MD if patient's dose is 5 mg/hr and able to tolerate oral medications. Std Conc=0.1 mg/ml Dose/Rate Change 12/02/2017 10 mg/hr 100 mL/hr 17:27 CDT Dose/Rate Change 12/02/2017 5 mg/hr 50 mL/hr 17:38 CDT nitroGLYCERIN 50 mg/D5W 250 mL infusion Dose/Rate 12/02/2017 2 mcg/kg/ min 42.8 mL/hr 0.1-3 mcg/kg/min Change 16:36 CDT 71.3 kg Dosing weight (2.139-64.17 mL/hr, rounded to 2.1-64.2 mL/hr) 250 mL, at 2.1-64.2 mL/hr, Intravenous, TITRATE DIRECTED , Starting Thu12/02/17 at 1615, Until Thu12/03/17 at 0713, Initiate at 0.1 mcg/kg/min Titrate to: SBP >=90 and <=110 mmHg x 3 hours then 130 mmHg. NOTE: For weight-based dosing, use patient dosing weight. Dose/Rate Change 12/02/2017 2.5 53.5 mL/hr 16:46 CDT mcg/kg/min Dose/Rate Change 12/02/2017 3 mcg/kg/min 64.2 mL/hr 16:51 CDT ondansetron (ZOFRAN ODT) rapid dissolve Given 12/06/2017 8 mg tablet 8 mg 10:50 CDT 8 mg, Oral, EVERY 6 HOURS PRN, Starting Thu12/02/17 at 1606, Until Thu12/08/17 at 1807, Nausea/Vomiting PO, Place on tongue and allow to dissolve. Given 12/06/2017 8 mg 17:28 CDT Given 12/07/2017 8 mg 06:04 CDT ondansetron (ZOFRAN) injection 4 mg Given 12/02/2017 4 mg 4 mg, Intravenous, ONCE, 1 dose, Thu 19:54 CDT 12/02/17 at 1930 ondansetron (ZOFRAN) tablet 4 mg Given 12/04/2017 4 mg 4 mg, Oral, EVERY 6 HOURS PRN, Starting 01:48 CDT Thu12/02/17 at 1606, Until Thu12/08/17 at 1807, Nausea/Vomiting PO, (May use for PO or NG) Given 12/05/2017 4 mg 17:56 CDT oxyCODONE (ROXICODONE, OXY-IR) tablet Given 12/07/2017 5 mg 5-10 mg 20:14 CDT 5-10 mg, Oral, EVERY 4 HOURS PRN, Starting Thu12/02/17 at 1606, Until Thu12/08/17 at 1807, Pain PO Given 12/08/2017 5 mg 03:50 CDT Given 12/08/2017 5 mg 07:00 CDT potassium chloride in water IVPB 10 mEq Given - New 12/02/2017 10 mEq 50 mL/hr 10 mEq, Intravenous, 50 mL, Administer Bag 22:18 CDT over 60 Minutes, NEEDED, Starting Thu12/02/17 at 1606, Until Thu12/08/17 at 1807, See admin instructions, Use tablet or suspension if patient tolerating PO; use IV if not tolerating PO. It urine output <30 mL/hr or SCr >2 mg/dL, check with physician prior to giving K+ replacement. - For K+ 4.0-4.3, give potassium chloride 10 mEq IV over 1 hour* - For K+ 3.5-3.9, give potassium chloride 20 mEq IV over 2 hours* - For K+ 3.0-3.4, give potassium chloride 30 mEq IV over 3 hours* - For K+ <3, give potassium chloride 40 mEq IV over 4 hours* - *May increase rate to 20 mEq/hr if patient has central line - Check K+ 1 hour after end of each replacement dose. Follow K+ replacement orders based on result. NOTE: This is a HIGH ALERT Medication. Given - New Bag 12/02/2017 10 mEq 50 mL/hr 23:19 CDT Given - New Bag 12/03/2017 10 mEq 50 mL/hr 03:00 CDT potassium chloride oral solution 20-40 mEq 20-40 mEq, Per NG tube, NEEDED, Starting Thu12/02/17 at 1606, Until Thu12/08/17 at 1807, Other..., See admin instructions, If urine output <30 mL/hr or SCr >2 mg/dL, check with physician prior to giving K+ replacement. - For K+ 4.0-4.3, give potassium chloride 20 mEq PO/NG x 1 dose - For K+ 3.5-3.9, give potassium chloride 40 mEq PO/NG x 1 dose - For K+ <3.5, give potassium chloride 40 mEq PO/NG every 4 hours x 2 doses - Check K+ in the AM if potassium >=3.5 and replacement given - Check K+ 4 hours after last replacement dose given if K+ <3.5, then repeat replacement orders if needed. potassium chloride SR (K-DUR) tablet 20 Given 12/08/2017 20 mEq mEq 08:57 CDT 20 mEq, Oral, ONCE, 1 dose, Thu12/08/17 at 0715, - Tablet may be dispersed in water. Place tab in 30 mL of water for 40-60 seconds. - Gently swirl until fully dispersed. If particles remain after admin, add small amount of water and admin remaining content. - DO NOT CRUSH. Tablet may be split in half. potassium chloride SR (K-DUR) tablet Given 12/05/2017 20 mEq 20-40 mEq 06:43 CDT 20-40 mEq, Oral, NEEDED, Starting Thu12/02/17 at 1606, Until Thu12/08/17 at 1807, Other..., See admin instructions, If urine output <30 mL/hr or SCr >2 mg/dL, check with physician prior to giving K+ replacement. - For K+ 4.0-4.3, give potassium chloride 20 mEq PO/NG x 1 dose - For K+ 3.5-3.9, give potassium chloride 40 mEq PO/NG x 1 dose - For K+ <3.5, give potassium chloride 40 mEq PO/NG every 4 hours x 2 doses - Check K+ in the AM if potassium >=3.5 and replacement given - Check K+ 4 hours after last replacement dose given if K+ <3.5, then repeat replacement orders if needed. Given 12/08/2017 20 mEq 08:57 CDT senna/docusate (SENOKOT-S) tablet 2 Given 12/07/2017 2 tablets tablet 09:16 CDT 2 tablet, Oral, TWICE DAILY, First dose on Thu12/03/17 at 0900, Until Discontinued, Start POD #1. Hold for loose stools. Given 12/07/2017 2 tablets 20:14 CDT Given 12/08/2017 2 tablets 08:57 CDT sodium chloride 0.9 % infusion Dose/Rate 12/03/2017 30 mL/hr 1,000 mL, Intravenous, at 30 mL/hr, Verify 00:00 CDT CONTINUOUS, Starting Thu12/02/17 at 1615, Until Thu12/03/17 at 1044 Dose/Rate Verify 12/03/2017 30 mL/hr 04:00 CDT Dose/Rate Verify 12/03/2017 30 mL/hr 07:30 CDT SODIUM CHLORIDE 0.9 % IV SOLP (Cabinet Given - New 12/02/2017 1,000 mL Override) Bag 08:23 CDT NOW, 1 dose, Thu12/02/17 at 0800, Created by cabinet override traMADol (ULTRAM) tablet 50 mg Given 12/05/2017 50 mg 50 mg, Oral, EVERY 6 HOURS PRN, 15:44 CDT Starting Thu12/03/17 at 1053, Until Thu12/08/17 at 1807, Pain PO Given 12/06/2017 50 mg 03:53 CDT Given 12/08/2017 50 mg 09:09 CDT in this encounter
--- OUTSIDE RECORDS SUMMARY | 2017-12-09 01:02 | XMS REPORT | Encounter Summary ---
Author Author [facility] Organization [facility] Address Unknown Phone Unavailable Care Team Providers Care Social Media Project Manager Name Role Phone Deann Parker MD PCP Encounter Details Date Type Department Care Team Description 12/02/2017 Procedure Pass Cardiovascular Operating Room [address] [place] [address] Social History Tobacco Use Types Packs/Day Years Used Date Former Smoker 1 45 Quit: 01/23/2017 Smokeless Tobacco: Never Used Alcohol Use Drinks/Week oz/Week Comments No Sex Assigned at Date Recorded Not on file as of this encounter Functional Status Functional Status Response Date of Assessment Does the patient have a hearing impairment: No 11/24/2017 as of this encounter Plan of Treatment Not on fileas of this encounter Visit Diagnoses Not on filein this encounter
--- OUTSIDE RECORDS SUMMARY | 2017-12-09 01:03 | XMS REPORT | Encounter Summary ---
Author Author [facility] Organization [facility] Address Unknown Phone Unavailable Care Team Providers Care Derrick Barge Operator Name Role Phone Deann Parker MD PCP Encounter Details Date Type Department Care Team Description 12/01/2017 PAC Office Preoperative Assessment Kenny Enrique MD Coronary artery disease Visit Clinic [address] involving [place] heart, [address] [place] [address] [place] [address] unspecified, unspecified [phone] vessel or lesion type Anesthesia Record Procedure Name Responsible Anesthesia Start Time Anesthesia Stop Time Anesthesiologist BYPASS GRAFT CORONARY Candy Zazueta MD 12/02/17 0825 12/02/17 1603 ARTERY x3, LEFT INTERNAL MAMMARY ARTERY HARVEST, LEFT ENDOSCOPIC SAPHENOUS VEIN HARVEST (N/A ) Date Time Event Comment 714 AN Equip Check 2017 0825 Anes Start 0827 Art Line 0834 An Pause 1114 Out of Pre Procedure 1116 An Resume 1117 An Start Data 1118 In Room 1128 An Induction The patient was reevaluated immediately before moderate or deep sedation use and before anesthesia induction. 1136 An Intubation 1139 Antibiotic Given 1140 AN AYALA 1149 CVC 1244 Sternotomy 1334 An Aortic Cannula 1336 An Venous Cannula 1339 An CV Bypass init 1343 An Clamp On 1445 An Clamp Off 1450 An CV Bypass Ended 1600 Transport 1600 an stop data 1600 Handoff to RN I completed my SBAR handoff to the receiving nurse. 1603 An Stop Meds * No agents on file. * No blood administrations on file. Type Details Placement Removal ETT 12/02/17; 1136; Ventilated by mask (1); 12/02/17 1136 by Jt, Direct laryngoscopy, Stylet; RyanMAIRA Single-Lumen, Cuffed; 7.5mm; Mac; 3; Oral; 1-Full view of the glottis; 1 insertion attempt; Auscultation, ETCO2 Detector; 21 centimeters Wounds 12/02/17; 1604; Chest; Surgical 12/02/17 1604 by (NOT for Incision; 4X4'S COVADERM TO CHEST TUBE Ninfa Roldan, PORTIA Pressure SITES Injuries) Wounds 12/02/17; 1604; Lower; Leg; Surgical 12/02/17 1604 by (NOT for Incision Ninfa Roldan, PORTIA Pressure Injuries) Wounds 12/02/17; 1604; Upper; Leg; Surgical 12/02/17 1604 by (NOT for Incision Ninfa Roldan, PORTIA Pressure Injuries) Puncture 11/23/17; 1149; Right; Femoral; 11/23/17 1149 by Will, 1999 by Wound 12/02/17; 1999 PORTIA Lee Katherine, PORTIA (Sheath) Wounds 11/24/17; 1705; Other (Comment); 11/24/17 1705 by Lan, 12/02/171999 by (NOT for Surgical Incision; 12/02/17; 1999; PORTIA Ocasio Katherine, PORTIA Pressure MOUTH,NO DRESSING.2.8 ml., 4 % Injuries) PRILOCAINE PLAIN. Endotrache 12/02/17; Oral; 7.5mm; 21 cm; 12/03/17; 12/02/17 0000 by Frazell, 12/03/17 0100 by Leiva, al Tube 0100 Nona Schafer, RT Sho, RT Peripheral 12/02/17; 0821; RN; R; Other (Comment) 12/02/17 0821 by Amriklo , 12/08/17 1430 by ASIYA Whitehead (wrist); 20 G; 1; 12/08/17; 1430 PORTIA Boswell RN Arterial 12/02/17; 0833 (created via procedure 12/02/17 0833 by Jt, 12/03/17 0759 by Ricco, Line documentation); R; Radial; 20 G; MAIRA Davis, PORTIA 12/03/17; 0759 Indwelling 12/02/17; 1143; Regular (Two-way); 12/02/17 1143 by 12/03/17 0940 by Chacko, Urinary 12/03/17; 0940 Denise Lassiter RN Mallory, PORTIA Catheter Introducer 12/02/17; 1152 (created via procedure 12/02/17 1152 by 0932 by Chacko, / Cordis documentation); OR; Yes; 9 FR; Candy Zazueta MD Mallory, RN Chlorhexadine (CHG) impregnated sponge; 12/03/17; 0932 PA 12/02/17; 1153 (created via procedure 12/02/17 1153 by 12/03/17 0510 by Catheter documentation); 12/03/17; 0510; Y Candy Zazueta MD Frizzell, Katherine, RN Chest Tube 12/02/17; 1600; Mid; Mediastinal; X2, 28 12/02/17 1600 by Armand, 12/03/17 1034 by Ricco, FR; 12/03/17; 1034 PORTIA Paulino, PORTIA Chest Tube 12/02/17; 1600; Left; 12/03/17; 1040 12/02/17 1600 by Armand, 12/03/17 1040 by Lora Chacko RN Mallory, PORTIA in this encounter Social History Tobacco Use Types Packs/Day Years Used Date Former Smoker 1 45 Quit: 01/23/2017 Smokeless Tobacco: Never Used Alcohol Use Drinks/Week oz/Week Comments No Sex Assigned at Date Recorded Not on file as of this encounter Last Filed Vital Signs Vital Sign Reading Time Taken Blood Pressure 108/62 12/01/2017 2:58 PM CDT Pulse 88 12/01/2017 2:50 PM CDT Temperature 36.3 C (97.3 F) 12/01/2017 2:50 PM CDT Respiratory Rate - - Oxygen Saturation 96% 12/01/2017 2:50 PM CDT Inhaled Oxygen - - Concentration Weight 72 kg (158 lb 12.8 oz) 12/01/2017 2:50 PM CDT Height 157.5 cm (5' 2") 12/01/2017 2:50 PM CDT Body Mass Index 29.04 12/01/2017 2:50 PM CDT in this encounter Functional Status Functional Status Response Date of Assessment Does the patient have a hearing impairment: No 11/24/2017 as of this encounter Instructions * Pre-Anesthesia Medication Instructions - Lashawn Hull, JULIO - 2017 11:00 AM CDT Formatting of this note may be different from the original. YOUR MEDICATIONS: amLODIPine (NORVASC) 10 mg tablet Take 10 mg by mouth daily. aspirin EC 81 mg tablet Take 81 mg by mouth daily. Take with food. atorvastatin (LIPITOR) 40 mg tablet Take 40 mg by mouth daily. calcium carbonate (TUMS) 500 mg (200 mg elemental calcium) chewable tablet Chew 500 mg by mouth as Needed. Cholecalciferol (Vitamin D3) (VITAMIN D) 1,000 unit cap Take 1 capsule by mouth daily. evolocumab (REPATHA) 140 mg/mL injectable PEN Inject 140 mg under the skin every 14 days. insulin aspart U-100 (NOVOLOG FLEXPEN) 100 unit/mL injection PEN Inject 0- 14 Units under the skin three times daily with meals. (Patient taking differently: Inject 10 Units under the skin three times daily with meals. 10 units plus 0-14 units on sliding scale) insulin detemir(+) (LEVEMIR) 100 unit/mL soln Inject 35 Units under the skin at bedtime daily. isosorbide mononitrate SR (IMDUR) 30 mg tablet Take 30 mg by mouth every morning. lisinopril (PRINIVIL; ZESTRIL) 20 mg tablet Take 20 mg by mouth daily. metoprolol XL (TOPROL XL) 100 mg extended release tablet Take 100 mg by mouth daily. nitroglycerin (NITROSTAT) 0.[address] 0.4 mg under tongue every 5 minutes as needed for Chest Pain. Max of 3 tablets, call 911. spironolactone (ALDACTONE) 25 mg tablet Take 0.5 tablets by mouth daily. Take with food. traMADol (ULTRAM) 50 mg tablet Take 50 mg by mouth every 6 hours as needed for Pain. YOUR MEDICATION INSTRUCTIONS FOR SURGERY: Before surgery Do not start any new vitamins, herbals, or natural supplements before surgery. Stop the following medications NOW: Anti-inflammatory medications such as ibuprofen (Advil, Motrin) and naproxen (Aleve) You may use acetaminophen (Tylenol) Please follow these instructions regarding your blood thinner medications: Aspirin: continue, but do not take the morning of surgery Clopidogrel (Plavix): last dose 11/24 Please follow these instructions regarding your insulin: Novolog: no injection the morning of surgery Levemir: inject 31 units the night before surgery Morning of surgery On the morning of surgery, do NOT take these medications: Remaining vitamins/supplements (vitamin D) Ointments/creams/lotions Aspirin Tums Lisinopril Spironolactone On the morning of surgery, take ONLY these medications with a sip (1-2 ounces) of water: Amlodipine Atorvastatin Isosorbide Metoprolol Tramadol if needed Other information Before surgery, please contact the clinic pharmacist with any medicine updates or questions. E-mail: [email or web address] Before going home from the hospital, please ask your doctor when you should re- start your medicines that were stopped before surgery. in this encounter Progress Notes * Lashawn Hull, JULIO - 12/01/2017 2:30 PM CDT PAC Beta Sole Instructions Note: Nimisha Jaramillo was seen in the PAC on 12/01/2017. As part of the visit, an accurate medication list was obtained and the patient was given pre-op medication instructions for upcoming surgery on 12/02/17. Nimisha Jaramillo is currently taking a beta sole. The patient was instructed to continue their beta sole as prescribed and to take it on the day of surgery. The patient verbalized understanding. Lashawn Hull, JULIO * Duyen Anthony RN - 12/01/2017 2:30 PM CDT BG [id number] Enrique. * Duyen Anthony RN - 12/01/2017 2:30 PM CDT Pt and family given pre-op education coupled with CTS packet. Verbalized understanding. Questions answered appropriately. Pt gave permission for liaison engineer to update family during surgery. Pt understands NPO at [place], arrival time (0730) and two G 4% showers. Pt taken to admitting for registration and PAC for testing. in this encounter Plan of Treatment Not on fileas of this encounter Visit Diagnoses Diagnosis Coronary artery disease involving [place] heart, angina presence unspecified, unspecified vessel or lesion type
--- OUTSIDE RECORDS SUMMARY | 2017-12-09 01:03 | XMS REPORT | Encounter Summary ---
Author Author [facility] Organization [facility] Address Unknown Phone Unavailable Care Team Providers Care Cyber Analyst Name Role Phone Ashley Banegas MD PCP Reason for Visit * Auth/Cert Status Reason Specialty Diagnoses / Referred By Referred To Procedures Contact Contact Diagnoses Coronary artery disease involving [place] coronary artery of [place] heart with unstable angina pectoris (HCC) Coronary artery disease involving [place] coronary artery of [place] heart with unstable angina pectoris (HCC) [I25.110] P rocedures BYPASS GRAFT CORONARY ARTERY Encounter Details Date Type Department Care Team Description 12/02/2017 Surgery Cardiovascular Operating IvaJeimy winchester MD BYPASS GRAFT CORONARY Room [address] ARTERY x3, LEFT INTERNAL [address] ARTERY [place], [place] [address] [place] [address] LEFT ENDOSCOPIC SAPHENOUS [phone] VEIN HARVEST Social History Tobacco Use Types Packs/Day Years [...] History: Diagnosis Date Bilateral carotid artery disease ([facility]) 11/17/2017 05/04/17 - Carotid U/S: mild 1-39% stenosis, nonobstructive disease bilaterally. Cancer ([facility]) 2012 Cervical COPD (chronic obstructive pulmonary disease) ([facility]) Coronary artery disease involving [place] coronary artery of [place] heart with unstable angina pectoris ([facility]) 11/17/2017 03/04/17 - LHC: Total occlusion of [...] abuse 11/17/2017 Mixed hyperlipidemia 11/17/2017 Myocardial infarction ([facility]) 04/2017 PAD (peripheral artery disease) ([facility]) 11/17/2017 TMJ click Type 2 diabetes mellitus with complication, with long-term current use of insulin ([facility]) 11/17/2017 Allergies: Fish containing products; Ketoprofen; Mushroom; [...] and ARTURO-I and she was diuresed. certified lactation educator was consulted for lifestyle modification for poorly controlled diabetes. She was stable for discharge on POD # 6. Condition at Discharge: Stable Discharge Diagnoses: Hospital Problems Active Problems * (Principal)Coronary artery disease involving [place] coronary artery of [place] heart with unstable angina pectoris ([facility]) PAD (peripheral artery disease) ([facility]) Essential hypertension Mixed hyperlipidemia History of tobacco abuse Type 2 diabetes mellitus with complication, with long-term current use of insulin ([facility]) Tooth decay Acute on chronic combined systolic and diastolic heart failure, NYHA class 2 ( [facility]) On mechanically assisted ventilation ([facility]) Surgical Procedures: 1. Coronary artery bypass times [...] or concerns regarding your hospital stay. Call [phone] Discharging attending physician: JEIMY YI [[id number]] Cardiac Diet Limiting unhealthy fats and cholesterol [...] home, you can call a dietitian at [phone]. Incision Care *Keep your incision clean and [...] to follow at 1:30. Provider JEIMY YI [[id number]] Location [facility] Clinic Appointment date: 01/12/2018 Appointment time: 12:30 PM Return Appointment You will need to call to schedule appointment to be seen in 1 week. Provider ASHLEY BANEGAS [[id number]] Return Appointment You will be contacted for follow up to be seen in 4 weeks. Provider ARNULFO CORTES [[id number]] Cardiac Rehab Your physician has referred you to outpatient cardiac rehab. Contact [facility] Cardiac Rehab Department at [phone] to schedule an appointment. Opioid (Narcotic) Safety [...] Provider) Arnulfo Cortes M.D. Special Visit Information [facility] Follow Up - Established Patient Current Discharge [...] Normal Associated Diagnoses: Coronary artery disease involving [place] coronary artery of [place] heart with unstable angina pectoris (HCC) insulin detemir(+) (LEVEMIR) 100 unit/mL soln Inject 26 Units under the skin at bedtime daily. Qty: 10 mL, Refills: 12 PRESCRIPTION TYPE: Normal Associated Diagnoses: Coronary artery disease involving [place] coronary artery of [place] heart with unstable angina pectoris (HCC) lisinopril [...] Normal Associated Diagnoses: Coronary artery disease involving [place] coronary artery of [place] heart with unstable angina pectoris (HCC) traMADol [...] Post - Op with Jeimy Yi MD [facility] ([facility] [address] [place] [id number] Signed: Richa Ni PA-C 12/08/2017 cc: Primary Care Physician: Ashley Banegas Referring physicians: Ashley Banegas MD Additional provider(s): Arnulfo Cortes MD in this encounter Discharge Instructions * Discharge Instr - Other Info - Maryjane Whitehead RN - 12/08/2017 2:21 PM CDT * Discharge Instr - Case Management - Meghan Berger RN - 12/08/2017 11:00 AM CDT Your home health agency is [facility]. They will contact you within 24- 48 hours to set up you admission visit. If you do not hear from them in that time, please call them at [phone]. If you have any additional questions or concerns regarding home health, please call Meghan Berger RN, BSN Integrated Nurse Nurse Tech in this encounter Medications at Time of [...] artery disease involving three times daily with [place] coronary artery of meals. Plus 0-14 units [place] heart with on sliding scale. unstable angina pectoris (HCC) insulin detemir(+) Inject 26 Units under the 10 mL 12 12/08/2017 (LEVEMIR) 100 unit/mL skin at bedtime daily. solnIndications: Coronary artery disease involving [place] coronary artery of [place] heart with unstable angina pectoris (HCC) lisinopril [...] with food. tabletIndications: Coronary artery disease involving [place] coronary artery of [place] heart with unstable angina pectoris (HCC) traMADol (ULTRAM) 50 mg Take 50 mg by mouth every tablet 6 hours as needed for Pain. as of this encounter Progress Notes * Maryjane Whitehead RN - 12/08/2017 3:13 PM CDT 1500 -Reviewed discharge instructions, prescriptions/medications, follow-up appt with pt and pt's family. Pt states verbal understanding - no questions. IV and Tele dc'd. Medications will be brought to the bedside by pharmacy prism measurer team when ready. Pt's RNSujatha, mert. * Shanti Huang RN - 12/08/2017 [...] monitor until DCed home this shift * - 12/08/2017 2:13 PM CDT Formatting of [...] 2 diabetes mellitus: A1c 10.4 , uncontrolled ENERGY SYSTEMS LABORATORY DIRECTOR regimen: Levemir 35 units daily, NovoLog 10 units with meals, mid dose correction factor Hypoglycemic episodes on this regimen: None but fasting glucose was between 70-90 Follows up with for diabetes management: PCP at [place], [place] Diabetic-complications assessment: Retinopathy: Yes Peripheral neuropathy: [...] Signs: 24 Hour Range BP: 133/65 (12/08 730) Temp: 36.4 C (97.6 F) (12/08 730) [...] FREET4, FREEINDEX No results found for: FREET3, [id number], THYBINDGLB Meds aspirin 81 mg Oral QDAY [...] Q6H PRN Terrance Mack MD Pager # [phone] 12/08/2017 * - 12/08/2017 9:00 AM CDT Formatting of this [...] RN notified of knee pain. * Annalise Lee, PORTIA - 12/08/2017 5:19 AM CDT Assessment complete [...] HARVEST: Principal Problem: Coronary artery disease involving [place] coronary artery of [place] heart with unstable angina pectoris ([facility]) Active Problems: PAD (peripheral artery disease) ([facility]) Essential hypertension Mixed hyperlipidemia History of tobacco abuse Type 2 diabetes mellitus with complication, with long-term current use of insulin ([facility]) Tooth decay Acute on chronic combined systolic and diastolic heart failure, NYHA class 2 ( [facility]) Assessment/Plan: Neuro Continue PRN oxycodone with scheduled Tylenol. Uses tramadol ENERGY SYSTEMS LABORATORY DIRECTOR for low back pain. CV SR, BP 100-140, cont ASA 81 mg (hold for plts <80k) and statin. Tolerating toprol 25 and ACEI in the initial post op phase. Intra op AYALA LVEF 45 %. ENERGY SYSTEMS LABORATORY DIRECTOR Norvasc, spironolactone, isosorbid, lisinopril, metoprolol. Resp Daily [...] with Dr. Yi and was brought to [facility] ICU for recovery. She was extubated [...] Intensity Pain Scale 0-10 (Pain 1): 7 (05/28/18 0320) Vitals: 12/05/17 0638 12/06/17 0400 12/07/17 [...] instability. Laboratory: LABS: Recent Labs 12/05/17 0343 12/06/17 0446 12/07/17 0423 NA 131* 132* 134* K [...] Date: 12/06/2017 Zamudio AC=Airway clearance AM=Aerosolized medication BA=[place] aerosol DB&C=Deep breathe & cough FEV1=Forced expiratory volume in first second) IC=Inspiratory capacity LE=Lung expansion MDI=Metered dose inhaler Neb=Nebulizer O2=Oxygen Oxim=Oximetry PEFR=Peak expiratory flow rate TEST DECK SUPERVISOR=Rapid Response Team Associated attestation - Deniz Langston MD - 12/06/2017 10:29 AM CDT Nauseated. Hold amiodarone. Mobilize. * Elbert Aguilar PA-C - 12/06/2017 8:00 AM CDT Formatting of this note may be different from the original. Cardiothoracic Surgery Progress Note Nimisha Zavalashaylee Today's Date: 12/06/2017 Admission Date: 12/02/2017 LOS: 4 days POD: 4 Procedure: BYPASS GRAFT CORONARY ARTERY x3, LEFT INTERNAL MAMMARY ARTERY HARVEST , LEFT ENDOSCOPIC SAPHENOUS VEIN HARVEST: Principal Problem: Coronary artery disease involving [place] coronary artery of [place] heart with unstable angina pectoris (HCC) Active Problems: PAD (peripheral artery disease) ([facility]) Essential hypertension Mixed hyperlipidemia History of tobacco abuse Type 2 diabetes mellitus with complication, with long-term current use of insulin ([facility]) Tooth decay Acute on chronic combined systolic and diastolic heart failure, NYHA class 2 ( [facility]) Assessment/Plan: Neuro Continue PRN oxycodone with scheduled Tylenol. Uses tramadol ENERGY SYSTEMS LABORATORY DIRECTOR for low back pain. CV SR, BP 90-130, cont ASA 81 mg (hold for plts <80k) and statin. Tolerating toprol 25 and ACEI in the initial post op phase. Intra op AYALA LVEF 45 %. ENERGY SYSTEMS LABORATORY DIRECTOR Norvasc, spironolactone, isosorbid, lisinopril, metoprolol. Resp Daily [...] with Dr. Yi and was brought to [facility] ICU for recovery. She was extubated [...] 8.8 MG 2.8* 2.7* 2.4 Recent Labs 12/04/1735212/05/17 0343 12/06/17 0446 WBC 12.3* 10.8 9.2 [...] UOP, +BM's. Will continue to monitor. * anda - 12/05/2017 2:55 PM CDT Formatting of [...] Assessment/Plan: Principal Problem: Coronary artery disease involving [place] coronary artery of [place] heart with unstable angina pectoris ([facility]) Active Problems: PAD (peripheral artery disease) ([facility]) Essential hypertension Mixed hyperlipidemia History of tobacco abuse Type 2 diabetes mellitus with complication, with long-term current use of insulin ([facility]) Tooth decay Acute on chronic combined systolic and diastolic heart failure, NYHA class 2 ( [facility]) On mechanically assisted ventilation ([facility]) Type 2 diabetes mellitus: A1c 10.4 , uncontrolled ENERGY SYSTEMS LABORATORY DIRECTOR regimen: Levemir 35 units daily, NovoLog 10 units with meals, mid dose correction factor Hypoglycemic episodes on this regimen: None but fasting glucose was between 70-90 Follows up with for diabetes management: PCP at [place], [place] Diabetic-complications assessment: Retinopathy: Yes Peripheral neuropathy: [...] injection PEN 26 Units 26 Units Subcutaneous QHS() lidocaine (LIDODERM) 5 % topical patch 1-2 [...] Vital Signs: 24 Hour Range BP: 109/85 (05/26 0716) Temp: 36.9 C (98.4 F) (12/06 715) [...] Adjusting BG per endocrine. ED * Annalise Adams, PORTIA - 12/05/2017 5:31 AM CDT SR c [...] *Higher points indicate higher acuity. Therapist: Duran Jauregui, RT Date: 12/04/2017 Zamudio AC=Airway clearance AM=Aerosolized medication BA=[place] aerosol DB&C=Deep breathe & cough FEV1=Forced expiratory volume in first second) IC=Inspiratory capacity LE=Lung expansion MDI=Metered dose inhaler Neb=Nebulizer O2=Oxygen Oxim=Oximetry PEFR=Peak expiratory flow rate TEST DECK SUPERVISOR=Rapid Response Team * Lars Tatum MD - 12/04/2017 2:23 PM CDT Formatting of this note may be different from the original. General Progress Note Admission Date: 12/02/2017 LOS: 2 days Assessment/Plan: Principal Problem: Coronary artery disease involving [place] coronary artery of [place] heart with unstable angina pectoris ([facility]) Active Problems: PAD (peripheral artery disease) ([facility]) Essential hypertension Mixed hyperlipidemia History of tobacco abuse Type 2 diabetes mellitus with complication, with long-term current use of insulin ([facility]) Tooth decay Acute on chronic combined systolic and diastolic heart failure, NYHA class 2 ( [facility]) On mechanically assisted ventilation ([facility]) Type 2 diabetes mellitus: A1c 10.4 , uncontrolled ENERGY SYSTEMS LABORATORY DIRECTOR regimen: Levemir 35 units daily, NovoLog 10 units with meals, mid dose correction factor Hypoglycemic episodes on this regimen: None but fasting glucose was between 70-90 Follows up with for diabetes management: PCP at [place], [place] Diabetic-complications assessment: Retinopathy: Yes Peripheral neuropathy: [...] Vital Signs: 24 Hour Range BP: 105/62 (12/04 1128) Temp: 37 C (98.6 F) (12/04 1128) Pulse: 77 (12/04 1128) Respirations: 18 PER MINUTE (12/04 112) SpO2: 94 % (12/04 1128) O2 Delivery: None (Room Air) (12/05 1127) [...] Diagnostics Review: none Lars Tatum MD * - 12/04/2017 1:41 PM CDT Formatting of [...] HARVEST: Principal Problem: Coronary artery disease involving [place] coronary artery of [place] heart with unstable angina pectoris (HCC) Active Problems: PAD (peripheral artery disease) ([facility]) Essential hypertension Mixed hyperlipidemia History of tobacco abuse Type 2 diabetes mellitus with complication, with long-term current use of insulin ([facility]) Tooth decay Acute on chronic combined systolic and diastolic heart failure, NYHA class 2 ( [facility]) Assessment/Plan: Neuro Continue PRN oxycodone with scheduled Tylenol. Uses tramadol ENERGY SYSTEMS LABORATORY DIRECTOR for low back pain. CV SR, BP 90-130, cont ASA 81 mg (hold for plts <80k) and statin. Hold BB and ACEI in the initial post op phase. Intra op AYALA LVEF 45%. ENERGY SYSTEMS LABORATORY DIRECTOR Norvasc, spironolactone, isosorbid, lisinopril, metoprolol. Resp Daily [...] with Dr. Yi and was brought to [facility] ICU for recovery. She was extubated [...] 100 mL IV drip (std conc) Stopped (12/03/17 2200) PRN and Respiratory Meds:[START ON 12/07/2017] acetaminophen [...] 309) O2 Delivery: None (Room Air) (12/03 1925) SpO2 Pulse: 67 (12/03 1000) BP: (91-134)/(45-96) Temp: [36.4 C (97.6 F)-37.1 C (98.8 F)] Pulse: [42-73] Respirations: [16 PER MINUTE-21 PER MINUTE] SpO2: [92 %-98 %] O2 Delivery: None (Room Air) Intensity Pain Scale 0-10 (Pain 1): 10 (12/04/17 0150) Vitals: 12/02/17 2000 12/03/17 0453 12/04/17 0630 [...] SCr of 1.18 mg/dL (H)) . Vitals: 12/02/17199912/03/17 0453 12/04/17 0630 Weight: 71.3 kg (157 lb 3 oz) 73.8 kg (162 lb 9.6 oz) 75.8 kg (167 lb) Recent Labs 12/03/17 0200 PHART 7.36 PO2ART 137* Radiology and Other Diagnostic Procedures Review: Reviewed * Annalise Adams, RN - 12/04/2017 5:34 AM CDT SR [...] Artery Disease Date of Admission: 12/02/2017 Room: [place] [id number] : 1955 Insurance: Primary: Medicare Secondary: unknown [address]: [address] [place] [id number] Patient (home) Marital Status: Occupation: Unknown ED Contact: Ritesh Burk ED Phone #: [phone] CTS: Iva Wire Spinner: Sebastian Cardiac Procedures and Events CAB12/02/17 Risk Factors Risk Factors: Obesity, Hyperlipidemia, Diabetes-type II BP: 112/69 Height: 157.5 cm (62.01") Weight: 73.8 kg (162 lb 9.6 oz) BMI (Calculated): 28.74 Medical History has a past medical history of Bilateral carotid artery disease ([facility]) (11/17/2017) ; Cancer ([facility]) (2012); COPD (chronic obstructive pulmonary disease) ([facility]); Coronary artery disease involving [place] coronary artery of [place] heart with unstable angina pectoris ([facility]) (11/17/2017); HARDING (dyspnea on exertion); Essential hypertension (11/17/2017); Gastrointestinal disorder; History of tobacco abuse (11/17/2017); Mixed hyperlipidemia (11/17/2017); Myocardial infarction ([facility]) (04/2017) ; PAD (peripheral artery disease) ([facility]) (11/17/2017); TMJ click; and Type 2 diabetes mellitus with complication, with long-term current use of insulin ([facility] ) (11/17/2017). Labs Cholesterol Date Value Ref [...] Referral Faxed to: Date Faxed: Location: If [facility], Sent to Staff: Luann Garcia RN 12/03/2017 [...] Date: 12/03/2017 Zamudio AC=Airway clearance AM=Aerosolized medication BA=[place] aerosol DB&C=Deep breathe & cough FEV1=Forced expiratory volume in first second) IC=Inspiratory capacity LE=Lung expansion MDI=Metered dose inhaler Neb=Nebulizer O2=Oxygen Oxim=Oximetry PEFR=Peak expiratory flow rate TEST DECK SUPERVISOR=Rapid Response Team * Katarzyna Pal RN - [...] HFR precautions in place. Will monitor. * Noan Charles, COPYING MACHINE REPAIRER - 12/03/2017 10:44 AM CDT Formatting of this note may be different from the original. Cardiothoracic Surgery Critical Care Progress Note Nimisha Clint Today's Date: 12/03/2017 Admission Date: 12/02/2017 LOS: 1 day POD: 1 Procedure: BYPASS GRAFT CORONARY ARTERY x3, LEFT INTERNAL MAMMARY ARTERY HARVEST , LEFT ENDOSCOPIC SAPHENOUS VEIN HARVEST: Principal Problem: Coronary artery disease involving [place] coronary artery of [place] heart with unstable angina pectoris (HCC) Active Problems: PAD (peripheral artery disease) ([facility]) Essential hypertension Mixed hyperlipidemia History of tobacco abuse Type 2 diabetes mellitus with complication, with long-term current use of insulin ([facility]) Tooth decay Acute on chronic combined systolic and diastolic heart failure, NYHA class 2 ( [facility]) On mechanically assisted ventilation ([facility]) Assessment/Plan: Neuro Continue PRN oxycodone with scheduled Tylenol. Uses tramadol ENERGY SYSTEMS LABORATORY DIRECTOR for low back pain. CV SR, BP 106/54, d/c PA cath, cont ASA 81 mg (hold for plts <80k) and statin. Hold BB and ACEI in the initial post op phase. Intra op AYALA LVEF 45%. ENERGY SYSTEMS LABORATORY DIRECTOR Norvasc, spironolactone, isosorbid, lisinopril, metoprolol. Resp Daily [...] A1c 10.4 %. Insulin gtt per Modified [facility] Protocol-consult endo. Activity Ambulate TID with nursing. [...] and coordination of care. Nona Charles APRN [facility] Intensive Care Pager [phone] 12/03/2017 Subjective: HPI: Nimisha Jaramillo is a 62 y.o. female with a history of insulin-dependent diabetes, hypertension, hypertriglyceridemia, COPD, carotid stenosis and known coronary disease with previous PCI. Her LHC on 12/01/17 showed chronic occlusion of her LAD, an 80% proximal diagonal, 90% mid OM, a 95% distal RCA. She underwent elective CABG today with Dr. Yi and was brought to [facility] ICU for recovery. She was extubated [...] (12/03 1000) Respirations: 18 PER MINUTE (12/03 1000) SpO2: 94 % (12/03 1000) O2 Delivery: Nasal Cannula (12/03 0600) SpO2 Pulse: 67 (12/03 1000) Height: 157.5 [...] Other Diagnostic Procedures Review: Reviewed * Tete Chacko RN - 12/03/2017 9:20 AM CDT Patient walked 150ft. Tolerated well with no dizziness or nausea. SPB stable throughout walk. CTS dumped 14mls. Will continue to monitor. * Tete Chacko, RN - 12/03/2017 8:00 AM CDT Patient assessment [...] Will continue to monitor. * Philomena Leon, RN - 12/03/2017 5:23 AM CDT 0445 pt [...] to pull PA catheter. * Philomena Leon, RN - 12/03/2017 4:21 AM CDT Reassessment complete; [...] Date: 12/03/2017 Zamudio AC=Airway clearance AM=Aerosolized medication BA=[place] aerosol DB&C=Deep breathe & cough FEV1=Forced expiratory volume in first second) IC=Inspiratory capacity LE=Lung expansion MDI=Metered dose inhaler Neb=Nebulizer O2=Oxygen Oxim=Oximetry PEFR=Peak expiratory flow rate TEST DECK SUPERVISOR=Rapid Response Team * Philomena Leon, RN - 12/03/2017 12:26 AM CDT 0016 CPAP trial started 0053 Post trial ABG within parameters to extubate; notified S. Heldstab, TILE ROOFER and orders received ok to extubate. 0100 [...] of green OG output. Notified Giovanni Zacarias, TILE ROOFER and orders received for one time dose of reglan IV. * Philomena Leon RN - 12/02/2017 11:10 PM CDT 2245 Notified Giovanni Zacarias, TILE ROOFER of CI <2; orders to draw mixed venous SvO2. 2319: Svo2 back at 62.9, CHAPARRO calculation obtained and CI 2.82. Notified Giovanni Zacarias, TILE ROOFER and orders to monitor and recheck SvO2/CHAPARRO with AM labs. * Philomena Leon RN - 12/02/2017 9:23 PM CDT 2118 CPAP trial started by RT 8 pt apneic several times, placed back on settings by RT; plan to retrial at 2200 2200 Pt started back on CPAP trial 2239 multiple MV low alarms, ABG drawn and pH out of range; Giovanni Zacarias, AUNG notified and pt placed on AC-MMV for [...] mL albumin bolus obtained. * Shelley Yousif, COPYING MACHINE REPAIRER - 12/02/2017 4:35 PM CDT Formatting of this note may be different from the original. Cardiothoracic Surgery Critical Care Progress Note Nimisha Zavalashaylee Today's Date: 12/02/2017 Admission Date: 12/02/2017 LOS: 0 days POD: Procedure: BYPASS GRAFT CORONARY ARTERY x3, LEFT INTERNAL MAMMARY ARTERY HARVEST , LEFT ENDOSCOPIC SAPHENOUS VEIN HARVEST: Principal Problem: Coronary artery disease involving [place] coronary artery of [place] heart with unstable angina pectoris ([facility]) Active Problems: PAD (peripheral artery disease) ([facility]) Essential hypertension Mixed hyperlipidemia History of tobacco abuse Type 2 diabetes mellitus with complication, with long-term current use of insulin ([facility]) Tooth decay Acute on chronic combined systolic and diastolic heart failure, NYHA class 2 ( [facility]) On mechanically assisted ventilation ([facility]) Assessment/Plan: Neuro Continue to wean from sedation [...] A1c 10.4 %. Insulin gtt per Modified [facility] Protocol. Activity HOB to 30 degrees over [...] and coordination of care. Shelley Yousif APRN [facility] Intensive Care Pager [phone] 12/02/2017 Subjective: HPI: Nimisha Jaramillo is a 62 y.o. female with a history of insulin-dependent diabetes, hypertension, hypertriglyceridemia, COPD, carotid stenosis and known coronary disease with previous PCI. Her LHC on 12/01/17 showed chronic occlusion of her LAD, an 80% proximal diagonal, 90% mid OM, a 95% distal RCA. She underwent elective CABG today with Dr. Yi and was brought to [facility] ICU post-operatively for further management. REVIEW [...] IV drip (std conc) 2 Units/hr (12/02/17 191) niCARdipine (cardENE) 20 mg/NS 200 mL infusion [...] Other Diagnostic Procedures Review: Reviewed * Lora Acuna RN - 12/02/2017 4:15 PM CDT 1600: Pt [...] History and Physical Update Note Name: Nimisha Jaramillo Allergies: Fish containing products; Ketoprofen; Mushroom; and [...] hours): POC Glucose (Download): (!) 102 (12/02/17 0822) I have examined the patient, and the following changes are noted from the previous H&P performed on 11/25/17. Mrs. Jaramillo had several teeth removed during her previous hospitalization and her case was postponed to allow healing. She denies any issues since then. Her last dose of Plavix was 11/23/17. Italo Russo PA-C Pager [phone] Current problem list includes: Principal Problem: Coronary artery disease involving [place] coronary artery of [place] heart with unstable angina pectoris (HCC) Active [...] dictated by Dr. Iva Russo PA-C Pager [phone] Attestation signed by Jeimy Yi MD at 11/25/17 [id number] I appreciate the consult. I met and [...] referred to Dr. Cortes from her home inside outside sales representative to attempt PCI of her known PRISM INSPECTOR LAD lesion. Dr. Cortes consulted CTS for evaluation for surgical revascularization after [facility] today revealed severe, multivessel CAD in [...] Reoperation: 3.351% CATH FINDINGS: Coronary Stenosis LAD--> PRISM INSPECTOR Diag--> 80% proximal OM --> 70% ostial, 90% mid RCA--> 95% distal PMH: Past Medical History: Diagnosis Date Bilateral carotid artery disease ([facility]) 11/17/2017 05/04/17 - Carotid U/S: mild 1-39% stenosis, nonobstructive disease bilaterally. Coronary artery disease involving [place] coronary artery of [place] heart with unstable angina pectoris ([facility]) 11/17/2017 03/04/17 - [facility]: Total occlusion of the mid LAD, [...] Mixed hyperlipidemia 11/17/2017 PAD (peripheral artery disease) ([facility]) 11/17/2017 Type 2 diabetes mellitus with complication, with long-term current use of insulin ([facility]) 11/17/2017 PSH: Past Surgical History: Procedure Laterality [...] Hospital Problems Diagnosis Coronary artery disease involving [place] coronary artery of [place] heart with unstable angina pectoris (HCC) 03/05/17 - [facility]: Total occlusion of the mid LAD, balloon angioplasty using 2 different sized balloons. No reestablishment of flow. Appears the artery is diffusely diseased & occluded. Proximal portion has severe disease - balloon angioplasty with slight improvement. Severe disease at mid and distal circumflex - fairly small artery. Patent stent in large dominant RCA. Normal LV , EF 60%, normal LVEDP. 06/16/16 [facility]: Severe in-stent restenosis in prox and mid [...] circumflex, fairly small artery. Normal LVEDP. 06/2015 [facility]: 2.5 x 18 mm Resolute Integrity stent to mid circumflex, prox lesion is 40% stenosed, distal lesion 80%. Patent multiple stents in prox, mid, and distal LAD w/ mild in-stent restenosis. Patent stent in RCA w/ mild disease in distal RCA. 05/2015 [facility]: 3.5 x 12 mm & 2.75 x 24 mm Promus Premier overlapping stents to mid RCA. Patent stents in the LAD. Severe stenosis at distal LAD, 70% prox circumflex and 70-80% mid to distal circ/OM branch. [facility]: 2.5 x 24 mm and 2.5 x 20 mm Promusto distal and proximal LAD, 50% prox circumflex, 70-80% mid to distal circumflex involving the proximal portion of OM1, 50-60% mid RCA, LV anterior wall hypokinetic. EF 40%. Essential hypertension Mixed hyperlipidemia History of tobacco abuse Type 2 diabetes mellitus with complication, with long-term current use of insulin ([facility]) Plan: Dr. Yi has reviewed all of the patient's preop testing. He agrees that surgical intervention is the most appropriate course of action. The entire procedure, risks, benefits, alternatives, and complications have been discussed. Potential risks include but are not limited to infection, arrhythmias , bleeding requiring re-operation, prolonged intubation, ARF requiring hemodialysis, CVA, [place], and possibly even . The patient understands, [...] of arrival for Thursday. Italo Russo PA-C [phone] in this encounter Consult Notes * Jennifer [...] 2 diabetes mellitus: A1c 10.4 , uncontrolled ENERGY SYSTEMS LABORATORY DIRECTOR regimen: Levemir 35 units daily, NovoLog 10 units with meals, mid dose correction factor Hypoglycemic episodes on this regimen: None but fasting glucose was between 70-90 Follows up with for diabetes management: PCP at [place], [place] Diabetic-complications assessment: Retinopathy: Yes Peripheral neuropathy: [...] of hypoglycemia. Patient was also seen by breastfeeding educator at the last visit and it [...] History: Diagnosis Date Bilateral carotid artery disease ([facility]) 11/17/2017 05/04/17 - Carotid U/S: mild 1-39% stenosis, nonobstructive disease bilaterally. Cancer ([facility]) 2012 Cervical COPD (chronic obstructive pulmonary disease) ([facility]) Coronary artery disease involving [place] coronary artery of [place] heart with unstable angina pectoris ([facility]) 11/17/2017 03/04/17 - [facility]: Total occlusion of the mid LAD, [...] abuse 11/17/2017 Mixed hyperlipidemia 11/17/2017 Myocardial infarction ([facility]) 04/2017 PAD (peripheral artery disease) ([facility]) 11/17/2017 TMJ click Type 2 diabetes mellitus with complication, with long-term current use of insulin ([facility]) 11/17/2017 Past Surgical History Past Surgical History: Procedure Laterality Date TOOTH EXTRACTION Bilateral 11/24/2017 EXTRACTION TEETH #6, 7, 8, 9, 10, 11, 14, 22-27 performed by Dena Gayle DDS at Main OR/Periop CORONARY ARTERY BYPASS GRAFT N/A 12/02/2017 BYPASS GRAFT CORONARY ARTERY x3, LEFT INTERNAL MAMMARY ARTERY HARVEST, LEFT ENDOSCOPIC SAPHENOUS VEIN HARVEST performed by Jeimy Yi MD at [facility] CARDIAC SURGERY Total of 13 stents [...] Vital Signs: 24 Hour Range BP: 112/69 (12/03 1128) Temp: 36.6 C (97.9 F) (12/03 112) Pulse: 68 (12/03 1128) Respirations: 16 PER MINUTE (12/03 1128) SpO2: 97 % (12/03 112) O2 Delivery: None (Room Air) (12/03 112) SpO2 Pulse: 67 (12/03 1000) Height: 157.5 [...] clubbing, cyanosis or edema Skin: no rashes/lesions SENIOR INSTRUMENTATION ENGINEER: Grossly nonfocal Lab Review Point of Care [...] FREET4, FREEINDEX No results found for: FREET3, [id number], THYBINDGLB Eugenia Gutierrez MD Endocrinology Fellow PGY-5 [...] fully evaluated, and discussed patient with the [facility] ICU team. The patient is critically [...] and coordination of care. Staff name: Mirza Lazo, Date: 12/02/2017 Patient Active Problem List Diagnosis Date Noted Acute on chronic combined systolic and diastolic heart failure, NYHA class 2 ([facility]) 12/02/2017 On mechanically assisted ventilation ([facility]) 12/02/2017 CAD (coronary artery disease) 11/23/2017 11/24/17-cardiac catheterization revealed an occluded mid left anterior descending artery with faint [id number]-tm-lunk collaterals, 90% mid second obtuse marginal stenosis with a 70% ostial circumflex stenosis and 95% proximal posterior lateral stenosis. Bilateral carotid artery disease ([facility]) 11/17/2017 05/04/17 - Carotid U/S: mild 1-39% stenosis, nonobstructive disease bilaterally. Coronary artery disease involving [place] coronary artery of [place] heart with unstable angina pectoris ([facility]) 11/17/2017 03/05/17 - [facility]: Total occlusion of the mid LAD, balloon angioplasty using 2 different sized balloons. No reestablishment of flow. Appears the artery is diffusely diseased & occluded. Proximal portion has severe disease - balloon angioplasty with slight improvement. Severe disease at mid and distal circumflex - fairly small artery. Patent stent in large dominant RCA. Normal LV , EF 60%, normal LVEDP. 06/16/16 - [facility]: Severe in-stent restenosis in prox and mid [...] circumflex, fairly small artery. Normal LVEDP. 06/2015 [facility]: 2.5 x 18 mm Resolute Integrity stent to mid circumflex, prox lesion is 40% stenosed, distal lesion 80%. Patent multiple stents in prox, mid, and distal LAD w/ mild in-stent restenosis. Patent stent in RCA w/ mild disease in distal RCA. 05/2015 [facility]: 3.5 x 12 mm & 2.75 x 24 mm Promus Premier overlapping stents to mid RCA. Patent stents in the LAD. Severe stenosis at distal LAD, 70% prox circumflex and 70-80% mid to distal circ/OM branch. [facility]: 2.5 x 24 mm and 2.5 x 20 mm Promusto distal and proximal LAD, 50% prox circumflex, 70-80% mid to distal circumflex involving the proximal portion of OM1, 50-60% mid RCA, LV anterior wall hypokinetic. EF 40%. PAD (peripheral artery disease) ([facility]) 11/17/2017 Essential hypertension 11/17/2017 Mixed hyperlipidemia 11/17/2017 History of tobacco abuse 11/17/2017 Type 2 diabetes mellitus with complication, with long-term current use of insulin ([facility]) 11/17/2017 Tooth decay 11/16/2017 Added automatically from request for surgery [id number] Neuro: PRN tylenol and PRN opioids per [...] K+ >4.0 mEq/L. Insulin gtt per Modified Alfreda Protocol . Activity: Increase HOB to 30 [...] 24 Hour Range BP: 126/70 (12/02 1100) ABP: 112/56 (12/02 2118) Temp: 36.5 C [...] Ref Range PH-ART-POC 7.35 7.35 - 7.45 WUU2-SWE-QJW 47 (H) 35 - 45 MMHG PO2-ART-POC 311 (H) 80 - 100 MMHG Base Ex-ART-POC 0.0 MMOL/L O2 Sat-ART-POC 100.0 (H) 95 - 99 % Rgvuhkvhoye-YRY-HRF 25.8 21 - 28 MMOL/L POC HEMATOCRIT [...] Ref Range PH-ART-POC 7.39 7.35 - 7.45 LCS0-LUN-QSI 43 35 - 45 MMHG PO2-ART-POC 259 (H) 80 - 100 MMHG Base Ex-ART-POC 1.0 MMOL/L O2 Sat-ART-POC 100.0 (H) 95 - 99 % Vyzgzcvbaqq-TFE-REL 25.8 21 - 28 MMOL/L POC HEMATOCRIT [...] Range PH-ART-POC 7.46 (H) 7.35 - 7.45 UTX9-GFT-QLK 42 35 - 45 MMHG PO2-ART-POC 581 (H) 80 - 100 MMHG Base Ex-ART-POC 6.0 MMOL/L O2 Sat-ART-POC 100.0 (H) 95 - 99 % Fqhjppffyfd-BZJ-TAY 29.4 (H) 21 - 28 MMOL/L POC [...] Range PH-ART-POC 7.46 (H) 7.35 - 7.45 ZJE5-DUV-NRT 40 35 - 45 MMHG PO2-ART-POC 566 (H) 80 - 100 MMHG Base Ex-ART-POC 5.0 MMOL/L O2 Sat-ART-POC 100.0 (H) 95 - 99 % Vxygjahivzl-AJE-QPJ 28.6 (H) 21 - 28 MMOL/L POC [...] Range PH-ART-POC 7.51 (H) 7.35 - 7.45 QVN3-UVZ-ZZA 34 (L) 35 - 45 MMHG PO2-ART-POC 439 (H) 80 - 100 MMHG Base Ex-ART-POC 4.0 MMOL/L O2 Sat-ART-POC 100.0 (H) 95 - 99 % Nbgouhtcsgr-RKP-TJK 27.3 21 - 28 MMOL/L POC HEMATOCRIT [...] Range PH-ART-POC 7.49 (H) 7.35 - 7.45 CXY3-XYT-QRO 33 (L) 35 - 45 MMHG PO2-ART-POC 299 (H) 80 - 100 MMHG Base Ex-ART-POC 2.0 MMOL/L O2 Sat-ART-POC 100.0 (H) 95 - 99 % Buwixmaezoy-LLR-PQS 25.0 21 - 28 MMOL/L POC HEMATOCRIT [...] Ref Range PH-ART-POC 7.44 7.35 - 7.45 MCI0-CAY-GLG 32 (L) 35 - 45 MMHG PO2-ART-POC 81 80 - 100 MMHG Base Def-ART-POC 3.0 MMOL/L O2 Sat-ART-POC 96.0 95 - 99 % Tfcsfxgxirx-NYN-PXW 21.7 21 - 28 MMOL/L POC GLUCOSE [...] (12/02/17 1630) POC Glucose (Download): (!) 137 (12/02/172057) Radiology and Other Diagnostic Procedures Review: reviewed Mirza Lazo DO Incinerator Plant Laborer Anesthesiology and Critical Care [phone] in this encounter Miscellaneous Notes * Case Mgmt DC Plan - Meghan Berger RN - 12/08/2017 11:08 AM CDT Case Management Progress Note NAME:Nimisha Jaramillo :1955 AGE: 62 y.o. ADMISSION DATE: 12/02/2017 DAYS ADMITTED: LOS: 6 days Todays Date: 12/08/2017 Zxpd-STR-9-CABG- increase activity,diabetic education, home today vs tomm. Interventions ? Support EMR and POC reviewed. ? Info or Referral ? Discharge Planning Met with pt and spouse at bedside to discuss POC. Discussed HH and pt agreeable. Pt used [facility] prior and would like to use again if possible. Geovanna at [facility] called and verified they could accept pt on service. ([phone], [phone]) Referral sent. Will send orders/AVS on DC. Pt had no other concerns at this time. CM will continue to follow for any DC needs that may arise. Update:1413- Orders and [facility]. ? Medication Needs ? Financial ? Legal ? Other Disposition ? Expected Discharge Date Expected Discharge Date: 12/05/17 ? Transportation Does the patient need discharge transport arranged?: No Transportation Name, Phone and Availability #1: - Ritesh Burk Does the patient use Medicaid Transportation?: No ? Discharge Disposition Anticipate DC with family assistance and GLUE WHEEL OPERATOR. Meghan Berger RN, BSN Integrated Nurse Nurse Tech Pager [phone] * Care Plan - Annalise Lee RN [...] referred to Dr. Cortes from her home inside outside sales representative to attempt PCI of her known PRISM INSPECTOR LAD lesion. Dr. Cortes consulted CTS for evaluation for surgical revascularization after [facility] today revealed severe, multivessel CAD in [...] early because of pt's current medical condition. MUSA told pt's she would draft a letter [...] draft letter to Marco Clarke with [employer] as he is the property technician of the pt's apartment complex. Patient Address/Phone [address] [phone] (home) Emergency Contact Extended Emergency Contact Information Primary Emergency Contact: Ritesh Burk [facility] Relation: Spouse Healthcare Directive Healthcare Directive: Yes, patient has a healthcare directive Type of Healthcare Directive: Durable power of patent attorney for healthcare, Healthcare directive Location of [...] her medications and has to utilize her [facility] clinic monthly for assistance. If the clinic does not have her medications she cannot fill them elsewhere d/t cost) ? Source of Income Source Of Income: Food Assistance, Other (comment) ($192/month in food stamps. Pt also receives medication assistance from [facility]) ? Financial Assistance Needed? Pt has no Part D coverage at this time because she missed the open enrollment period. Pt says she has to have all medications filled at the local [facility] in [place] and they have a ramy they access [...] ? PCP Ashley Banegas, , ? Pharmacy [facility] [place] [address] [place] [address] [address] [facility] [address] ? Durable Medical Equipment Durable Medical Equipment at home: None ? Home Health Receiving home health: Yes Agency name: [facility] [phone] Would patient use this agency again?: Yes ? Hemodialysis or Peritoneal Dialysis Undergoing hemodialysis or peritoneal dialysis: No ? Tube/Enteral Feeds Receive tube/enteral feeds: No ? Infusion Receive infusions: No ? Private Duty Private duty help used: No ? Home and Community Based Services Home and community based services: No ? Italo Puckett White: N/A ? Hospice Hospice: No ? Outpatient Therapy PT: No OT: No VEST TAILOR: No ? Penitentiary Facility/Intermediate SNF: No NH: No ? Inpatient Rehab IPR: No ? Long-Term Acute Care Hospital LTACH: No ? Acute Hospital Stay Acute Hospital Stay: In the past Was patient's stay within the last 30 days?: Yes When did patient receive care?: November 23 - 2017 Name of hospital: [facility] Readmission Code Group: 8. Scheduled Readmission 8. Scheduled Readmission: 8c. Surgery/procedure Maura Boswell LMSW Surgery - Cardiothoracic/Vascular Intervention Teacher *[id number] * Care Plan - Philomena Leon RN [...] Yi MD - 12/02/2017 4:18 PM CDT THE [address] [address] PATIENT NAME: NIMISHA JARAMILLO MR#/PT#: [id number] OPERATIVE REPORT : 1955 DATE OF OPERATION: 12/02/2017 ROOM #: 307 OPERATIVE REPORT SURGEON: Jeimy Yi III, MD (Trip) EARLY CHILDHOOD COORDINATOR SURGEON(S): MYRIAM Upton PA-C DICTATING PROVIDER: Jeimy [...] present for the entire procedure. Jeimy Hess) Hanny Yi III, MD GLZ/Hakeem Hess) Hanny Yi III, MD / MedQ [id number] P cc: - Jeimy Hess) Hanny Yi III, MD * Procedures (Immed Post or Bedside) - Emma Mcnally PA-C - 12/02/2017 3: 35 PM CDT Brief Operative Note Name: Nimisha Jaramillo is a 62 y.o. female : 1955 DATE OF OPERATION: 12/02/2017 Date: 12/02/2017 Preoperative Dx: Coronary artery disease involving [place] coronary artery of [place] heart with unstable angina pectoris (HCC) [I25.110] Post-op Diagnosis * Coronary artery disease involving [place] coronary artery of [place] heart with unstable angina pectoris (HCC) [I25.110] [...] ICU - stable Emma Mcnally PA-C Pager [phone] in this encounter Plan of Treatment Name Priority Associated Diagnoses Order Schedule ECG 12-LEAD STAT ONE TIME for 1 Occurrences starting 12/02/2017 until 12/02/2017 ECG 12-LEAD Routine ONE TIME for 1 Occurrences starting 12/03/2017 until 12/03/2017 CHEST 2 VIEWS Routine Coronary artery disease Expected: 01/12/2018 involving [place] heart, (Approximate), Expires: angina presence 12/04/2018 unspecified, unspecified vessel or lesion type as of this encounter Results * POC GLUCOSE (12/08/2017 11:19 AM) Component Value Ref Range Glucose, POC 234 (H) 70 - 100 MG/DL Specimen Performing Laboratory MAIN LAB [address] [place] [address] * POC GLUCOSE (12/08/2017 7:31 AM) Component Value Ref Range Glucose, POC 131 (H) 70 - 100 MG/DL Specimen Performing Laboratory MAIN LAB [address] [place] [address] * POC GLUCOSE (12/07/2017 9:16 PM) Component Value Ref Range Glucose, POC 202 (H) 70 - 100 MG/DL Specimen Performing Laboratory MAIN LAB [address] [place] [address] * POC GLUCOSE (12/07/2017 5:41 PM) Component Value Ref Range Glucose, POC 171 (H) 70 - 100 MG/DL Specimen Performing Laboratory MAIN LAB [address] [place] [address] * POC GLUCOSE (12/07/2017 11:35 AM) Component Value Ref Range Glucose, POC 328 (H) 70 - 100 MG/DL Specimen Performing Laboratory MAIN LAB [address] [place] [address] * POC GLUCOSE (12/07/2017 7:18 AM) Component Value Ref Range Glucose, POC 134 (H) 70 - 100 MG/DL Specimen Performing Laboratory MAIN LAB [address] [place] [address] * MAGNESIUM (12/07/2017 4:23 AM) Component Value Ref Range Magnesium 2.0 1.6 - 2.6 mg/dL Specimen Performing Laboratory Blood MAIN LAB [address] [place] [address] * CBC (12/07/2017 4:23 AM) Component Value [...] FL Specimen Performing Laboratory Blood MAIN LAB [address] [place] [address] * BASIC METABOLIC PANEL (12/07/2017 4:23 AM) [...] Specimen Performing Laboratory Blood [facility] MAIN LAB [address] [place] [address] * POC GLUCOSE (12/07/2017 3:28 AM) Component Value Ref Range Glucose, POC 119 (H) 70 - 100 MG/DL Specimen Performing Laboratory [facility] LAB [address] [place] [address] * POC GLUCOSE (12/06/2017 8:49 PM) Component Value Ref Range Glucose, POC 215 (H) 70 - 100 MG/DL Specimen Performing Laboratory [facility] LAB [address] [place] [address] * POC GLUCOSE (12/06/2017 5:38 PM) Component Value Ref Range Glucose, POC 147 (H) 70 - 100 MG/DL Specimen Performing Laboratory [address] [address] * POC GLUCOSE (12/06/2017 11:29 AM) Component Value Ref Range Glucose, POC 137 (H) 70 - 100 MG/DL Specimen Performing Laboratory [address] [address] * POC GLUCOSE (12/06/2017 7:47 AM) Component Value Ref Range Glucose, POC 133 (H) 70 - 100 MG/DL Specimen Performing Laboratory [facility] LAB [address] [place] [address] * MAGNESIUM (12/06/2017 4:46 AM) Component Value Ref Range Magnesium 2.4 1.6 - 2.6 mg/dL Specimen Performing Laboratory Blood [address] [address] * CBC (12/06/2017 4:46 AM) Component Value [...] - 11 FL Specimen Performing Laboratory Blood [facility] [address] [place], [place] [id number] * BASIC METABOLIC PANEL (12/06/2017 4:46 AM) [...] Pharmacist for questions. Specimen Performing Laboratory Blood [facility] [address] [place], [place] [phone] * POC GLUCOSE (12/05/2017 9:04 PM) Component Value Ref Range Glucose, POC 142 (H) 70 - 100 MG/DL Specimen Performing Laboratory MAIN LAB [address] [place] [address] * POC GLUCOSE (12/05/2017 4:57 PM) Component Value Ref Range Glucose, POC 158 (H) 70 - 100 MG/DL Specimen Performing Laboratory [facility] LAB [address] [place] [address] * POC GLUCOSE (12/05/2017 11:36 AM) Component Value Ref Range Glucose, POC 211 (H) 70 - 100 MG/DL Specimen Performing Laboratory MAIN LAB [address] [place] [address] * POC GLUCOSE (12/05/2017 7:16 AM) Component Value Ref Range Glucose, POC 210 (H) 70 - 100 MG/DL Specimen Performing Laboratory MAIN LAB [address] [place] [address] * CHEST SINGLE VIEW (12/05/2017 7:03 AM) Specimen Performing Laboratory RAD RESULTS Impressions 1.Unchanged small bilateral pleural effusions and adjacent atelectasis. Finalized by Italo Stevensno M.D. on 12/05/2017 9:58 AM. Dictated by [...] 100 MG/DL Specimen Performing Laboratory MAIN LAB [address] [place] [address] * MAGNESIUM (12/05/2017 3:43 AM) Component Value Ref Range Magnesium 2.7 (H) 1.6 - 2.6 mg/dL Specimen Performing Laboratory Blood MAIN LAB [address] [place] [address] * CBC (12/05/2017 3:43 AM) Component Value [...] Specimen Performing Laboratory Blood MAIN LAB [address] [place] [address] * BASIC METABOLIC PANEL (12/05/2017 3:43 AM) [...] questions. Specimen Performing Laboratory Blood MAIN LAB [address] [place] [address] * POC GLUCOSE (12/04/2017 9:14 PM) Component Value Ref Range Glucose, POC 172 (H) 70 - 100 MG/DL Specimen Performing Laboratory MAIN LAB [address] [place], [place] [id number] * POC GLUCOSE (12/04/2017 5:29 PM) Component Value Ref Range Glucose, POC 234 (H) 70 - 100 MG/DL Specimen Performing Laboratory MAIN LAB [address] [place], [place] [id number] * POC GLUCOSE (12/04/2017 11:28 AM) Component Value Ref Range Glucose, POC 228 (H) 70 - 100 MG/DL Specimen Performing Laboratory MAIN LAB [address] [place], [place] [phone] * POC GLUCOSE (12/04/2017 7:53 AM) Component Value Ref Range Glucose, POC 177 (H) 70 - 100 MG/DL Specimen Performing Laboratory MAIN LAB [address] [place], [place] [id number] * CHEST SINGLE VIEW (12/04/2017 6:37 AM) [...] Performing Laboratory Blood [facility] MAIN LAB [address] [place] [address] * CBC (12/04/2017 3:53 AM) Component Value [...] - 11 FL Specimen Performing Laboratory Blood [facility] LAB [address] [place] [address] * BASIC METABOLIC PANEL (12/04/2017 3:53 AM) [...] Pharmacist for questions. Specimen Performing Laboratory Blood [facility] LAB [address] [place] [address] * POC GLUCOSE (12/04/2017 12:06 AM) Component Value Ref Range Glucose, POC 112 (H) 70 - 100 MG/DL Specimen Performing Laboratory MAIN LAB [address] [place] [address] * POC GLUCOSE (12/03/2017 10:29 PM) Component Value Ref Range Glucose, POC 104 (H) 70 - 100 MG/DL Specimen Performing Laboratory MAIN LAB [address] [place] [address] * POC GLUCOSE (12/03/2017 9:55 PM) Component Value Ref Range Glucose, POC 100 70 - 100 MG/DL Specimen Performing Laboratory [facility] LAB [address] [place] [address] 8[address]65 * POC GLUCOSE (12/03/2017 8:54 PM) Component Value Ref Range Glucose, POC 142 (H) 70 - 100 MG/DL Specimen Performing Laboratory MAIN LAB [address] [place] [address] * POC GLUCOSE (12/03/2017 7:47 PM) Component Value Ref Range Glucose, POC 228 (H) 70 - 100 MG/DL Specimen Performing Laboratory [facility] LAB [address] [place] [address] * POC GLUCOSE (12/03/2017 6:55 PM) Component Value Ref Range Glucose, POC 247 (H) 70 - 100 MG/DL Specimen Performing Laboratory [facility] LAB [address] [place] [address]69 * POC GLUCOSE (12/03/2017 5:45 PM) Component Value Ref Range Glucose, POC 233 (H) 70 - 100 MG/DL Specimen Performing Laboratory [facility] LAB [address] [place] [address] 13368 * POC GLUCOSE (12/03/2017 4:54 PM) Component Value Ref Range Glucose, POC 252 (H) 70 - 100 MG/DL Specimen Performing Laboratory [facility] [address] [place] [address] 59905 * POC GLUCOSE (12/03/2017 3:36 PM) Component Value Ref Range Glucose, POC 278 (H) 70 - 100 MG/DL Specimen Performing Laboratory [facility] LAB [address] [place] [address] 8[address]29 * POC GLUCOSE (12/03/2017 2:36 PM) Component Value Ref Range Glucose, POC 285 (H) 70 - 100 MG/DL Specimen Performing Laboratory [facility] [address] [place] [address]21 * POC GLUCOSE (12/03/2017 1:36 PM) Component Value Ref Range Glucose, POC 216 (H) 70 - 100 MG/DL Specimen Performing Laboratory [facility] [address] [place] [address] 25074 * POC GLUCOSE (12/03/2017 12:33 PM) Component Value Ref Range Glucose, POC 159 (H) 70 - 100 MG/DL Specimen Performing Laboratory [facility] [address] [place] [address] 82928 * POC GLUCOSE (12/03/2017 11:27 AM) Component Value Ref Range Glucose, POC 214 (H) 70 - 100 MG/DL Specimen Performing Laboratory [facility] [address] [place] [address] 23251 * CHEST SINGLE VIEW (12/03/2017 11:01 AM) [...] pleural effusion and mild bibasilar atelectasis. The [place]Brian catheter and thoracostomy tubes have been removed. [...] pleural effusion and mild bibasilar atelectasis. The [place] catheter and thoracostomy tubes have been removed. [...] 100 MG/DL Specimen Performing Laboratory MAIN LAB [address] [place] [address] 37545 * POC GLUCOSE (12/03/2017 9:14 AM) Component Value Ref Range Glucose, POC 182 (H) 70 - 100 MG/DL Specimen Performing Laboratory MAIN LAB [address] [place] [address] 67496 * POC GLUCOSE (12/03/2017 7:56 AM) Component Value Ref Range Glucose, POC 111 (H) 70 - 100 MG/DL Specimen Performing Laboratory MAIN LAB [address] [place] [address] 29502 * POC GLUCOSE (12/03/2017 7:02 AM) Component Value Ref Range Glucose, POC 121 (H) 70 - 100 MG/DL Specimen Performing Laboratory [facility] [address] [place] [address] * POC GLUCOSE (12/03/2017 6:06 AM) Component Value Ref Range Glucose, POC 117 (H) 70 - 100 MG/DL Specimen Performing Laboratory MAIN LAB [address] [place] [address] * POC GLUCOSE (12/03/2017 4:57 AM) Component Value Ref Range Glucose, POC 109 (H) 70 - 100 MG/DL Specimen Performing Laboratory MAIN LAB [address] [place] [address] * CHEST SINGLE VIEW (12/03/2017 4:36 AM) [...] 12/02/2017 Findings: There is a right IJ [place] catheter, mediastinal drain, and 2 left [address]ostomy tubes in place. There is a metallic stent projecting over the left ventricle. Right IJ [place] catheter is in similar position. Removal of endotracheal and orogastric tubes. Cardiac silhouette is stable. Previous median sternotomy and CABG. There is limited depth of inspiration. Small left pleural effusion. No pneumothorax. Procedure Note Interface, Radiant Results - 12/03/2017 1:08 PM CDT CHEST SINGLE VIEW Clinical Indication: Female, 62 years old. Atelectasis Comparison: Chest radiograph dated 12/02/2017 Findings: There is a right IJ [place] catheter, mediastinal drain, and 2 left [address] tubes in place. There is a metallic stent projecting over the left ventricle. Right IJ [place] catheter is in similar position. Removal of [...] Specimen Performing Laboratory Blood MAIN LAB [address] [place] [address] * BASIC METABOLIC PANEL (12/03/2017 4:04 AM) [...] Specimen Performing Laboratory Blood MAIN [facility] [address] [place] [address] * CBC (12/03/2017 4:04 AM) Component Value [...] FL Specimen Performing Laboratory Blood MAIN LAB [address] [place], [place] [id number] * O2 SATURATION, MIXED VENOUS (12/03/2017 4:00 AM) Component Value Ref Range R5Btj-Vdfuq Venous 61.3 % Specimen Performing Laboratory Blood [facility] [address] [place] [address] 78132 * POC GLUCOSE (12/03/2017 3:53 AM) Component Value Ref Range Glucose, POC 117 (H) 70 - 100 MG/DL Specimen Performing Laboratory [facility] [address] [place], [place] [id number] * POC GLUCOSE (12/03/2017 2:03 AM) Component Value Ref Range Glucose, POC 131 (H) 70 - 100 MG/DL Specimen Performing Laboratory [facility] [address] [place] [address] * BLOOD GASES, ARTERIAL (12/03/2017 2:00 AM) Component Value Ref Range pH-Arterial 7.36 7.35 - 7.45 pCO2-Arterial 39 35 - 45 MMHG pO2-Arterial 137 (H) 80 - 100 MMHG Base Deficit-Arterial 3.1 MMOL/L O2 Sat-Arterial 98.7 95 - 99 % Lffzozcygde-BRM-Ale 21.8 21 - 28 MMOL/L Specimen Performing Laboratory Blood, arterial - Blood [facility] [address] [place], [place] [id number] * POTASSIUM (12/03/2017 2:00 AM) Component Value Ref Range Potassium 4.0 3.5 - 5.1 MMOL/L Specimen Performing Laboratory Blood [facility] [address] [place], [place] [id number] * POC IONIZED CALCIUM (12/03/2017 12:52 AM) Component Value Ref Range Ionized Calcium-POC 1.16 1.0 - 1.3 MMOL/L Specimen Performing Laboratory [facility] [address] [place], [place] [id number] * POC SODIUM (12/03/2017 12:52 AM) Component Value Ref Range Sodium-POC 145 137 - 147 MMOL/L Specimen Performing Laboratory MAIN LAB [address] [place] [address] 63417 * POC POTASSIUM (12/03/2017 12:52 AM) Component Value Ref Range Potassium-POC 4.0 3.5 - 5.1 MMOL/L Specimen Performing Laboratory MAIN LAB [address] [place] [address] 64874 * POC HEMATOCRIT (12/03/2017 12:52 AM) Component Value Ref Range Hemoglobin POC 8.5 (L) 12.0 - 15.0 GM/DL Hematocrit POC 25.0 (L) 36 - 45 % Specimen Performing Laboratory MAIN LAB [address] [place] [address] 07619 * POC BLOOD GAS ARTERIAL (12/03/2017 12:52 AM) Component Value Ref Range PH-ART-POC 7.39 7.35 - 7.45 ULX7-UKB-WJJ 37 35 - 45 MMHG PO2-ART-POC 150 (H) 80 - 100 MMHG Base Def-ART-POC 3.0 MMOL/L O2 Sat-ART-POC 99.0 95 - 99 % Hkofemuvymr-YXJ-RKI 22.2 21 - 28 MMOL/L Specimen Performing Laboratory MAIN LAB [address] [place] [address] 85548 * POC GLUCOSE (12/03/2017 12:16 AM) Component Value Ref Range Glucose, POC 130 (H) 70 - 100 MG/DL Specimen Performing Laboratory MAIN LAB [address] [place] [address] * O2 SATURATION, MIXED VENOUS (12/02/2017 10:45 PM) Component Value Ref Range D2Jho-Tfvue Venous 62.9 % Specimen Performing Laboratory Blood [facility] [address] [place] [address] 56812 * POC IONIZED CALCIUM (12/02/2017 10:42 PM) Component Value Ref Range Ionized Calcium-POC 1.09 1.0 - 1.3 MMOL/L Specimen Performing Laboratory MAIN LAB [address] [place] [address] 61214 * POC SODIUM (12/02/2017 10:42 PM) Component Value Ref Range Sodium-POC 143 137 - 147 MMOL/L Specimen Performing Laboratory MAIN LAB [address] [place] [address] 24075 * POC POTASSIUM (12/02/2017 10:42 PM) Component Value Ref Range Potassium-POC 3.8 3.5 - 5.1 MMOL/L Specimen Performing Laboratory [facility] [address] [place] [address] 66682 * POC HEMATOCRIT (12/02/2017 10:42 PM) Component Value Ref Range Hemoglobin POC 7.8 (L) 12.0 - 15.0 GM/DL Hematocrit POC 23.0 (L) 36 - 45 % Specimen Performing Laboratory [facility] [address] [place] [address] 46455 * POC BLOOD GAS ARTERIAL (12/02/2017 10:42 PM) Component Value Ref Range PH-ART-POC 7.51 (H) 7.35 - 7.45 VFK1-HIT-BZP 27 (L) 35 - 45 MMHG PO2-ART-POC 171 (H) 80 - 100 MMHG Base Def-ART-POC 1.0 MMOL/L O2 Sat-ART-POC 100.0 (H) 95 - 99 % Prgqlpwvdhc-YOL-EUD 21.5 21 - 28 MMOL/L Specimen Performing Laboratory [facility] [address] [place] [address] 84552 * POC GLUCOSE (12/02/2017 10:09 PM) Component Value Ref Range Glucose, POC 133 (H) 70 - 100 MG/DL Specimen Performing Laboratory [facility] [address] [place] [address] 75184 * POTASSIUM (12/02/2017 9:00 PM) Component Value Ref Range Potassium 3.8 3.5 - 5.1 MMOL/L Specimen Performing Laboratory Blood [facility] [address] [place] [address] 35894 * MAGNESIUM (12/02/2017 9:00 PM) Component Value Ref Range Magnesium 3.8 (H) 1.6 - 2.6 mg/dL Specimen Performing Laboratory Blood [facility] [address] [place] [address] 87242 * POC GLUCOSE (12/02/2017 8:58 PM) Component Value Ref Range Glucose, POC 137 (H) 70 - 100 MG/DL Specimen Performing Laboratory [facility] [address] [place] [address] 89523 * POC GLUCOSE (12/02/2017 8:07 PM) Component Value Ref Range Glucose, POC 154 (H) 70 - 100 MG/DL Specimen Performing Laboratory [facility] [address] [place] [address] 32974 * POC GLUCOSE (12/02/2017 7:03 PM) Component Value Ref Range Glucose, POC 157 (H) 70 - 100 MG/DL Specimen Performing Laboratory [facility] [address] [place] [address] 31975 * POC GLUCOSE (12/02/2017 6:17 PM) Component Value Ref Range Glucose, POC 169 (H) 70 - 100 MG/DL Specimen Performing Laboratory [facility] [address] [place] [address] 89135 * POC GLUCOSE (12/02/2017 5:02 PM) Component Value Ref Range Glucose, POC 165 (H) 70 - 100 MG/DL Specimen Performing Laboratory [facility] [address] [place] [address] 38739 * POC BLOOD GAS ARTERIAL (12/02/2017 5:01 PM) Component Value Ref Range PH-ART-POC 7.44 7.35 - 7.45 PIF1-QLT-SMH 32 (L) 35 - 45 MMHG PO2-ART-POC 81 80 - 100 MMHG Base Def-ART-POC 3.0 MMOL/L O2 Sat-ART-POC 96.0 95 - 99 % Nyqdvmebfad-GOH-TMJ 21.7 21 - 28 MMOL/L Specimen Performing Laboratory [facility] [address] [place] [address] 78724 * POC GLUCOSE (12/02/2017 4:35 PM) Component Value Ref Range Glucose, POC 155 (H) 70 - 100 MG/DL Specimen Performing Laboratory [facility] [address] [place] [address] 01763 * POC IONIZED CALCIUM (12/02/2017 4:32 PM) Component Value Ref Range Ionized Calcium-POC 1.15 1.0 - 1.3 MMOL/L Specimen Performing Laboratory [facility] [address] [place] [address] 55188 * POC SODIUM (12/02/2017 4:32 PM) Component Value Ref Range Sodium-POC 143 137 - 147 MMOL/L Specimen Performing Laboratory [facility] [address] [place] [address] 54116 * POC POTASSIUM (12/02/2017 4:32 PM) Component Value Ref Range Potassium-POC 3.7 3.5 - 5.1 MMOL/L Specimen Performing Laboratory [facility] [address] [place] [address] 95617 * POC HEMATOCRIT (12/02/2017 4:32 PM) Component Value Ref Range Hemoglobin POC 7.5 (L) 12.0 - 15.0 GM/DL Hematocrit POC 22.0 (L) 36 - 45 % Specimen Performing Laboratory MAIN LAB [address] [place], [place] [id number] * POC BLOOD GAS ARTERIAL (12/02/2017 4:32 PM) Component Value Ref Range PH-ART-POC 7.49 (H) 7.35 - 7.45 [id number]-XXK-JJF 33 (L) 35 - 45 MMHG PO2-ART-POC 299 (H) 80 - 100 MMHG Base Ex-ART-POC 2.0 MMOL/L O2 Sat-ART-POC 100.0 (H) 95 - 99 % Ltywbanyqpv-NRN-MPN 25.0 21 - 28 MMOL/L Specimen Performing Laboratory MAIN LAB [address] [place] [address] * MAGNESIUM (12/02/2017 4:30 PM) Component Value Ref Range Magnesium 3.1 (H) 1.6 - 2.6 mg/dL Specimen Performing Laboratory Blood MAIN LAB [address] [place], [place] [id number] * PTT (APTT) (12/02/2017 4:30 PM) Component Value Ref Range APTT 29.3 21.0 - 39.0 SEC Specimen Performing Laboratory Blood MAIN [facility] [address] [place], [place] [id number] * PROTIME INR (PT) (12/02/2017 4:30 PM) Component Value Ref Range INR 1.1 0.8 - 1.2 Specimen Performing Laboratory Blood MAIN LAB [address] [place] [address] * BASIC METABOLIC PANEL (12/02/2017 4:30 PM) [...] Performing Laboratory Blood [facility] [address] [place] [address] * CBC (12/02/2017 4:30 PM) Component Value [...] - 11 FL Specimen Performing Laboratory Blood [facility] [address] [place] [address] * LINE PLCMT 1V CXR (12/02/2017 4:18 [...] mediastinal drain are noted. A right IJ [place] catheter is seen with distal tip overlying [...] mediastinal drain are noted. A right IJ [place] catheter is seen with distal tip overlying [...] 1.3 MMOL/L Specimen Performing Laboratory MAIN LAB [address] [place] [address] 96576 * POC SODIUM (12/02/2017 3:06 PM) Component Value Ref Range Sodium-POC 142 137 - 147 MMOL/L Specimen Performing Laboratory MAIN LAB [address] [place] [address] 25336 * POC POTASSIUM (12/02/2017 3:06 PM) Component Value Ref Range Potassium-POC 4.2 3.5 - 5.1 MMOL/L Specimen Performing Laboratory MAIN LAB [address] [place] [address] 02809 * POC HEMATOCRIT (12/02/2017 3:06 PM) Component Value Ref Range Hemoglobin POC 8.5 (L) 12.0 - 15.0 GM/DL Hematocrit POC 25.0 (L) 36 - 45 % Specimen Performing Laboratory MAIN LAB [address] [place] [address] * POC BLOOD GAS ARTERIAL (12/02/2017 3:06 PM) Component Value Ref Range PH-ART-POC 7.51 (H) 7.35 - 7.45 IJJ2-NMT-ZYT 34 (L) 35 - 45 MMHG PO2-ART-POC 439 (H) 80 - 100 MMHG Base Ex-ART-POC 4.0 MMOL/L O2 Sat-ART-POC 100.0 (H) 95 - 99 % Bprvmrusdym-PPZ-WTA 27.3 21 - 28 MMOL/L Specimen Performing Laboratory MAIN LAB [address] [place] [address] * POC GLUCOSE (12/02/2017 3:04 PM) Component Value Ref Range Glucose, POC 132 (H) 70 - 100 MG/DL Specimen Performing Laboratory [facility] [address] [place] [address] * POC IONIZED CALCIUM (12/02/2017 2:22 PM) Component Value Ref Range Ionized Calcium-POC 1.03 1.0 - 1.3 MMOL/L Specimen Performing Laboratory MAIN LAB [address] [place] [address] * POC SODIUM (12/02/2017 2:22 PM) Component Value Ref Range Sodium-POC 141 137 - 147 MMOL/L Specimen Performing Laboratory [facility] [address] [place] [address] * POC POTASSIUM (12/02/2017 2:22 PM) Component Value Ref Range Potassium-POC 5.2 (H) 3.5 - 5.1 MMOL/L Specimen Performing Laboratory [facility] [address] [place] [address] * POC HEMATOCRIT (12/02/2017 2:22 PM) Component Value Ref Range Hemoglobin POC 8.2 (L) 12.0 - 15.0 GM/DL Hematocrit POC 24.0 (L) 36 - 45 % Specimen Performing Laboratory [facility] [address] [place] [address] * POC BLOOD GAS ARTERIAL (12/02/2017 2:22 PM) Component Value Ref Range PH-ART-POC 7.46 (H) 7.35 - 7.45 PYP0-ZJT-TAE 40 35 - 45 MMHG PO2-ART-POC 566 (H) 80 - 100 MMHG Base Ex-ART-POC 5.0 MMOL/L O2 Sat-ART-POC 100.0 (H) 95 - 99 % Qbmgkygofgi-MXX-PXX 28.6 (H) 21 - 28 MMOL/L Specimen Performing Laboratory [facility] [address] [place] [address] 35439 * POC GLUCOSE (12/02/2017 2:20 PM) Component Value Ref Range Glucose, POC 116 (H) 70 - 100 MG/DL Specimen Performing Laboratory MAIN LAB [address] [place] [address] 19344 * POC IONIZED CALCIUM (12/02/2017 1:52 PM) Component Value Ref Range Ionized Calcium-POC 0.95 (L) 1.0 - 1.3 MMOL/L Specimen Performing Laboratory [facility] [address] [place], [place] [id number] * POC SODIUM (12/02/2017 1:52 PM) Component Value Ref Range Sodium-POC 141 137 - 147 MMOL/L Specimen Performing Laboratory [facility] [address] [place] [address] 56333 * POC POTASSIUM (12/02/2017 1:52 PM) Component Value Ref Range Potassium-POC 5.9 (H) 3.5 - 5.1 MMOL/L Specimen Performing Laboratory [facility] [address] [place] [address] 26545 * POC HEMATOCRIT (12/02/2017 1:52 PM) Component Value Ref Range Hemoglobin POC 7.5 (L) 12.0 - 15.0 GM/DL Hematocrit POC 22.0 (L) 36 - 45 % Specimen Performing Laboratory [facility] [address] [place] [address] 65982 * POC BLOOD GAS ARTERIAL (12/02/2017 1:52 PM) Component Value Ref Range PH-ART-POC 7.46 (H) 7.35 - 7.45 PDL6-OOO-VMD 42 35 - 45 MMHG PO2-ART-POC 581 (H) 80 - 100 MMHG Base Ex-ART-POC 6.0 MMOL/L O2 Sat-ART-POC 100.0 (H) 95 - 99 % Kahqmbqspau-TPN-MGE 29.4 (H) 21 - 28 MMOL/L Specimen Performing Laboratory [facility] [address] [place] [address] 35005 * POC GLUCOSE (12/02/2017 1:49 PM) Component Value Ref Range Glucose, POC 121 (H) 70 - 100 MG/DL Specimen Performing Laboratory MAIN LAB [address] [place] [address] 79483 * POC GLUCOSE (12/02/2017 1:30 PM) Component Value Ref Range Glucose, POC 113 (H) 70 - 100 MG/DL Specimen Performing Laboratory [facility] [address] [place] [address] 46436 * POC IONIZED CALCIUM (12/02/2017 11:49 AM) Component Value Ref Range Ionized Calcium-POC 1.20 1.0 - 1.3 MMOL/L Specimen Performing Laboratory [facility] [address] [place], [place] [id number] * POC SODIUM (12/02/2017 11:49 AM) Component Value Ref Range Sodium-POC 144 137 - 147 MMOL/L Specimen Performing Laboratory [facility] [address] [place] [address] * POC POTASSIUM (12/02/2017 11:49 AM) Component Value Ref Range Potassium-POC 3.5 3.5 - 5.1 MMOL/L Specimen Performing Laboratory [facility] [address] [place], [place] [id number] * POC HEMATOCRIT (12/02/2017 11:49 AM) Component Value Ref Range Hemoglobin POC 10.9 (L) 12.0 - 15.0 GM/DL Hematocrit POC 32.0 (L) 36 - 45 % Specimen Performing Laboratory [facility] [address] [place] [address] * POC BLOOD GAS ARTERIAL (12/02/2017 11:49 AM) Component Value Ref Range PH-ART-POC 7.39 7.35 - 7.45 NCT5-PFS-TKS 43 35 - 45 MMHG PO2-ART-POC 259 (H) 80 - 100 MMHG Base Ex-ART-POC 1.0 MMOL/L O2 Sat-ART-POC 100.0 (H) 95 - 99 % Xesaqbvcxmv-LTH-WUI 25.8 21 - 28 MMOL/L Specimen Performing Laboratory [facility] [address] [place], [place] [id number] * POC IONIZED CALCIUM (12/02/2017 11:37 AM) Component Value Ref Range Ionized Calcium-POC 1.22 1.0 - 1.3 MMOL/L Specimen Performing Laboratory [facility] [address] [place], [place] [id number] * POC SODIUM (12/02/2017 11:37 AM) Component Value Ref Range Sodium-POC 144 137 - 147 MMOL/L Specimen Performing Laboratory MAIN LAB [address] [place] [address] 33778 * POC POTASSIUM (12/02/2017 11:37 AM) Component Value Ref Range Potassium-POC 3.6 3.5 - 5.1 MMOL/L Specimen Performing Laboratory MAIN LAB [address] [place] [address] 89783 * POC HEMATOCRIT (12/02/2017 11:37 AM) Component Value Ref Range Hemoglobin POC 11.6 (L) 12.0 - 15.0 GM/DL Hematocrit POC 34.0 (L) 36 - 45 % Specimen Performing Laboratory MAIN LAB [address] [place] [address] 78200 * POC BLOOD GAS ARTERIAL (12/02/2017 11:37 AM) Component Value Ref Range PH-ART-POC 7.35 7.35 - 7.45 BCM5-HGV-CLD 47 (H) 35 - 45 MMHG PO2-ART-POC 311 (H) 80 - 100 MMHG Base Ex-ART-POC 0.0 MMOL/L O2 Sat-ART-POC 100.0 (H) 95 - 99 % Ijdvlywrzun-CSF-ISW 25.8 21 - 28 MMOL/L Specimen Performing Laboratory MAIN [facility] [address] [place] [address] 72198 * POC GLUCOSE (12/02/2017 11:35 AM) Component Value Ref Range Glucose, POC 99 70 - 100 MG/DL Specimen Performing Laboratory MAIN LAB [address] [place] [address] 42451 * POC GLUCOSE (12/02/2017 8:22 AM) Component Value Ref Range Glucose, POC 102 (H) 70 - 100 MG/DL Specimen Performing Laboratory MAIN LAB [address] [place] [address] 49387 in this encounter Visit Diagnoses Diagnosis Coronary artery disease involving [place] coronary artery of [place] heart with unstable angina pectoris (HCC) Admitting Diagnoses Diagnosis Coronary artery disease involving [place] coronary artery of [place] heart with unstable angina pectoris (HCC) - Coronary artery disease involving [place] coronary artery of [place] heart with unstable angina pectoris (HCC) [I25.110] CAD (coronary artery disease) Administered Medications Medication Order MAR Action Action Date Dose Rate Site acetaminophen (TYLENOL) tablet 650 mg Given 12/08/2017 650 mg 650 mg, Oral, EVERY 6 HOURS PRN, 07:02 CDT Starting 12/07/17 at 0000, Until Thu12/08/17 at 1807, Pain non-opioid: may be used alone or in combination with opioid analgesia, Temp > 38.5 C, Start POD #5, 6 hours after last scheduled acetaminophen dose. ACETAMINOPHEN DOSE NOT TO EXCEED 4GM DAILY. albuterol (PROAIR HFA, VENTOLIN HFA, or PROVENTIL [...] policy. Given 12/08/2017 2.5 mg 08:11 CDT aspirin chewable tablet 81 mg Given [...] 2314, Until Thu12/08/17 at 1807, Mouth/Throat Pain heparin (porcine) 20,000 Units in Given 12/02/2017 500 mL electrolyte-A (PLASMA-LYTE A PH 7.4) 12:30 CDT 1,000 mL irrigation 1,000 mL, INTRA-PROCEDURE MED, Starting Thu12/02/17 at 1230, Until Thu12/02/17 at 1553, Intra-op heparin (porcine) PF syringe 5,000 Units Given [...] , , administer 4 units insulin, at 21, 03* administer 2 units. -POC glucose 221-260mg/dL at , , administer 6 units insulin, at , 03* administer 4 units. -POC glucose 261-300mg/dL at , , administer 8 units insulin, at 21, 03* administer 6 units. -POC glucose 301-350mg/dL at , , administer 10 units insulin, at 21, 03* administer 8 units. -POC glucose 351-400mg/dL at , , administer 12 units insulin, at 21, 03* administer 10 units. -POC glucose >400mg/dL at , , administer 14 units insulin, at 21, 03* administer 12 units. *only if ordered [...] ALERT Medication. insulin glargine (LANTUS SOLOSTAR, Given 12/05/2017 26 Units Arm, Right BASAGLAR) injection PEN 26 Units 21:26 CDT 26 Units, Subcutaneous, AT BEDTIME DAILY, First dose on Thu12/05/17 at 2200, Until Discontinued, Continue if NPO. DO NOT mix with other insulins -- Do not mix with other insulins -- NOTE: This is a HIGH ALERT Medication. Given 12/06/2017 26 Units Abdominal 21:09 CDT Tissue Given 12/07/2017 26 Units Abdominal 21:32 CDT Tissue lidocaine (LIDODERM) 5 % topical patch Patch/Topica 12/06/2017 2 patches Chest, Left 1-2 patch l Applied 08:59 CDT 1-2 patch, Topical, Administer over 12 Hours, DAILY, First dose on Thu12/03/17 at 1200, Until Discontinued, NURSING PLEASE NOTE: Apply patch ONCE DAILY to affected area and REMOVE after designated duration. Apply only to intact skin. Patch may be cut to fit affected area. Patch/Topical Applied 12/07/2017 1 patch Chest, Left 09:21 CDT Patch/Topical Applied 12/08/2017 1 patch Chest, Left 08:57 CDT lisinopril (PRINIVIL; ZESTRIL) tablet 5 Given 12/08/2017 5 mg mg 09:09 CDT 5 mg, Oral, DAILY, First dose on Thu12/08/17 at 0915, Until Discontinued metoprolol XL (TOPROL XL) tablet 25 mg Given 12/06/2017 25 mg 25 mg, Oral, DAILY, First dose on Sat 08:58 CDT 12/05/17 at 0900, Until Discontinued, Hold for systolic BP < 100 tablets may be cut in half, DO NOT CRUSH or CHEW Given 12/07/2017 25 mg 09:15 CDT Given 12/08/2017 25 mg 08:56 CDT ondansetron (ZOFRAN ODT) rapid dissolve Given 12/06/2017 8 mg tablet 8 mg 10:50 CDT 8 mg, Oral, EVERY 6 HOURS PRN, Starting Thu12/02/17 at 1606, Until Thu12/08/17 at 1807, Nausea/Vomiting PO, Place on tongue and allow to dissolve. Given 12/06/2017 8 mg 17:28 CDT Given 12/07/2017 8 mg 06:04 CDT ondansetron (ZOFRAN) tablet 4 mg Given 12/04/2017 [...] CDT Given 12/08/2017 5 mg 07:00 CDT papaverine 60 mg in sodium chloride 0.9% Given 12/02/2017 20 mL (NS) 20 mL IV syr 12:30 CDT 20 mL, INTRA-PROCEDURE MED, Starting Thu12/02/17 at 1230, Until Thu12/02/17 at 1553, Intra-op potassium chloride in water IVPB 10 mEq [...] if needed. potassium chloride SR (K-DUR) tablet Given 12/05/2017 [...] tablet, Oral, TWICE DAILY, First dose on Bettina 12/03/17 at 0900, Until Discontinued, Start POD #1. Hold for loose stools. Given 12/07/2017 2 tablets 20:14 CDT Given 12/08/2017 2 tablets 08:57 CDT sodium chloride 0.9 % infusion Given - New 12/02/2017 5,000 mL INTRA-PROCEDURE MED(CONT), Starting Thu Bag 12:30 CDT 12/02/17 at 1230, Until Thu12/02/17 at 1553, Intra-op traMADol (ULTRAM) tablet 50 mg Given 12/05/2017 50 mg 50 mg, Oral, EVERY 6 HOURS PRN, 15:44 CDT Starting Bettina 12/03/17 at 1053, Until 12/08/17 at 1807, Pain PO Given 12/06/2017 50 mg 03:53 CDT Given 12/08/2017 50 mg 09:09 CDT vancomycin (VANCOCIN) injection Given 12/02/2017 4 g INTRA-PROCEDURE MED, Starting Wed 12:30 CDT 12/02/17 at 1230, Until Thu12/02/17 at 1553, Intra-op in this encounter
--- OUTSIDE RECORDS SUMMARY | 2017-12-09 01:03 | XMS REPORT | Encounter Summary ---
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 Name Role Phone Deann Parker MD PCP Encounter Details Date Type Department Care Team Description 11/26/2017 Pre-Admit Preoperative Assessment Kenny Enrique MD Coronary artery disease Orders Only Clinic [address] involving [place] heart, [address] [place] [address] [place] [address] unspecified, unspecified [phone] vessel or lesion type (Primary Dx) Social History Tobacco Use Types Packs/Day Years Used Date Former Smoker Quit: 01/23/2017 Smokeless Tobacco: Never Used Alcohol Use Drinks/Week oz/Week Comments No Sex Assigned at Date Recorded Not on file as of this encounter Functional Status Functional Status Response Date of Assessment Does the patient have a hearing impairment: No 11/24/2017 as of this encounter Plan of Treatment Not on fileas of this encounter Results * COMPREHENSIVE METABOLIC PANEL (12/01/2017 1:43 PM) [...] Specimen Performing Laboratory [facility] [address] [place] [address] * CBC (12/01/2017 1:43 PM) Component Value Ref Range White Blood Cells 5.2 4.5 - 11.0 K/UL RBC 4.21 4.0 - 5.0 M/UL Hemoglobin 12.4 12.0 - 15.0 GM/DL Hematocrit 37.2 36 - 45 % MCV 88.3 80 - 100 FL MCH 29.5 26 - 34 PG MCHC 33.4 32.0 - 36.0 G/DL RDW 13.1 11 - 15 % Platelet Count 186 150 - 400 K/UL MPV 9.5 7 - 11 FL Specimen Performing Laboratory [facility] [address] [place] [address] * TYPE & CROSSMATCH (12/01/2017 11:55 AM) Component Value Ref Range Units Ordered 0 Crossmatch Expires 12/04/2017 Record Check FOUND ABO/RH(D) A POS Antibody Screen NEG Electronic Crossmatch YES Specimen Performing Laboratory [facility] [address] [place] [address] in this encounter Visit Diagnoses Diagnosis Coronary artery disease involving [place] heart, angina presence unspecified, unspecified vessel or lesion type - Primary
--- OUTSIDE RECORDS SUMMARY | 2017-12-09 01:03 | XMS REPORT | Encounter Summary ---
Author Author [facility] Organization [facility] Address Unknown Phone Unavailable Care Team Providers Care Elementary Secretary Name Role Phone Deann Parker MD PCP Reason for Visit * Auth/Cert Status Reason Specialty Diagnoses / Referred By Referred To Procedures Contact Contact Diagnoses Coronary artery disease involving [place] coronary artery of [place] heart with unstable angina pectoris (HCC) Coronary artery disease involving [place] coronary artery of [place] heart with unstable angina pectoris (HCC) [I25.110] P rocedures BYPASS GRAFT CORONARY ARTERY Encounter Details Date Type Department Care Team Description 12/02/2017 Anesthesia Cardiovascular Operating Candy Strong MD Event Room [address] [facility] [address] [place] [address] [place] [address] [phone] Anesthesia Record Procedure Name Responsible Anesthesia Start Time Anesthesia Stop Time Anesthesiologist BYPASS GRAFT CORONARY Candy Strong MD 12/02/17 0825 12/02/17 1603 ARTERY x3, LEFT INTERNAL MAMMARY ARTERY HARVEST, LEFT ENDOSCOPIC SAPHENOUS VEIN HARVEST (N/A ) Date Time Event Comment 714 AN Equip Check 2018 0825 Anes Start 0827 Art Line 0834 [...] the receiving nurse. 1603 An Stop Meds Name Total midazolam (VERSED) 1 mg/mL injection 7 mg fentaNYL PF (SUBLIMAZE) injection 1,200 mcg propofol (DIPRIVAN) 200 mg/ 20 mL 80 mg injection (VIAL) vecuronium (NORCURON) 10 mg injection 20 mg heparin (porcine) 1,000 units/mL 25,000 Units injection protamine injection 180 mg phenylephrine (DEUCE-SYNEPHRINE) 10 mg in 2.88 mg sodium chloride 0.9% (NS) 250 mL IV drip (std conc) nitroGLYCERIN 50 mg/D5W 250 mL infusion 5.7 mg aminocaproic acid (AMICAR) injection 5 g aminocaproic acid (AMICAR) 12.5 g in 126 mL sodium chloride 0.9% (NS) IVPB dexmedetomidine (PRECEDEX) 400 mcg in 87.34 mcg sodium chloride 0.9% (NS) 100 mL IV infusion ceFAZolin (ANCEF) injection 4 g sodium chloride 0.9 % infusion 1,000 mL electrolyte-A (PLASMA-LYTE A PH 7.4) 800 mL infusion * Name O2 N2O Inspired N2O Isoflurane Inspired Isoflurane * No blood administrations on file. Type Details Placement Removal ETT 12/02/17; 1136; Ventilated by mask (1); 12/02/17 1136 by Lathon, Direct laryngoscopy, Stylet; MAIRA Davis Single-Lumen, Cuffed; 7.5mm; Mac; 3; Oral; 1-Full view of the glottis; 1 insertion attempt; Auscultation, ETCO2 Detector; 21 centimeters Wounds 12/02/17; 1604; Chest; Surgical 12/02/17 1604 by (NOT for Incision; 4X4'S COVADERM TO CHEST TUBE Ninfa Roldan, RN Pressure SITES Injuries) Wounds 12/02/17; 1604; Lower; Leg; Surgical 12/02/17 1604 by (NOT for Incision Ninfa Roldan, RN Pressure Injuries) Wounds 12/02/17; 1604; Upper; Leg; Surgical 12/02/17 1604 by (NOT for Incision Ninfa Roldan, RN Pressure Injuries) Puncture 11/23/17; 1149; Right; Femoral; [...] RN; R; Other (Comment) 12/02/17 0821 by Orallo , 12/08/17 1430 by Ventura IV (wrist); 20 G; 1; 12/08/17; 1430 PORTIA Boswell RN Arterial 12/02/17; 0833 (created via procedure 12/02/17 0833 by Lathon, 12/03/17 0759 by Chacko, Line documentation); R; Radial; 20 G; MAIRA Davis RN 12/03/17; 0759 Indwelling 12/02/17; 1143; Regular (Two-way); 12/02/17 1143 by 12/03/17 0940 by Chacko, Urinary 12/03/17; 0940 Denise Lassiter RN Mallory, PORTIA Catheter Introducer 12/02/17; 1152 (created via procedure 12/02/17 1152 by 0932 by Chacko, / Cordis documentation); OR; Yes; 9 FR; Candy Strong MD Mallory, PORTIA Chlorhexadine (CHG) impregnated sponge; 12/03/17; 0932 PA 12/02/17; 1153 (created via procedure 12/02/17 1153 by 12/03/17 0510 by Catheter documentation); 12/03/17; 0510; Y Candy Strong MD Frizzell, Katherine, PORTIA Chest Tube 12/02/17; 1600; Mid; Mediastinal; X2, [...] impairment: No 11/24/2017 as of this encounter OR Notes * Anesthesia Postprocedure Evaluation - Krystian Waters CRNA - 12/02/2017 4: 03 PM CDT Post-Anesthesia Evaluation Name: Nimisha Jaramillo : 1955 Age: 62 y.o. Sex : female Procedure Date: 12/02/2017 Procedure: Procedure(s): BYPASS GRAFT CORONARY ARTERY x3, LEFT INTERNAL MAMMARY ARTERY HARVEST, LEFT ENDOSCOPIC SAPHENOUS VEIN HARVEST Surgeon: Surgeon(s): Jeimy Yi MD Melo, Pamela, PA-C Post-Anesthesia Vitals Pulse: [83] Respirations: [15 PER MINUTE] SpO2: [100 %] SpO2 Pulse: [84] Post Anesthesia Evaluation Note Patient participation: patient intubated, unable to assess; expectation of recovery by ICU physician Level of consciousness: intubated & sedated Pain score: 0 Pain management: adequate Hydration: normovolemia Temperature: 36.0C - 38.4C Airway patency: adequate Perioperative Events Perioperative events: no Post-op nausea and vomiting: no PONV Postoperative Status Cardiovascular status: hemodynamically stable Respiratory status: ETT Additional comments: Ventilator settings: Mode: CMV FiO2: 100 Tidal volume: 450 ml Ventilatory rate: 15 breaths/min PEEP: 5 cm H2O Vasoactive Drips: Nitroglycerin: 1 mcg/kg/min Precedex 0.7 mcg/kg/hr Blood products/Hemostatic Agents/Anticoagulants: Heparin: 14882 units Protamine: 180 mg Amicar: 2 g/hr Special Considerations: N/A Patient was transported with supplemental oxygen and routine cardiovascular monitoring, including pulse oximetry. Individuals present during transport include Dakota Waters CRNA, Dr. Strong, INFRASTRUCTURE SOLUTIONS ARCHITECT, [employer] Chief Scientist. The patient was admitted to the ICU under care of the critical care team. This information was communicated between anesthesia and the receiving team. Perioperative Events Perioperative Event: No Emergency Case Activation: No Associated attestation - Candy Strong MD - 12/02/2017 4:21 PM CDT Formatting of this note may be different from the original. ATTESTATION Post-Anesthesia Evaluation and ICU Transfer Note Attestation: I evaluated the patient and the indicated post-anesthesia care is discharge and transfer to the ICU physician-lead team. Staff name: Candy Strong MD Date: 12/02/2017 * Anesthesia Procedure Notes - Candy Strong MD - 12/02/2017 12:53 PM CDT Associated Order(s): ANESTHESIA TRANSEESOPHAGEAL ECHOCARDIOGRAM Anesthesia Procedure: Transesophageal Echocardiogram AYALA Date/Time: 12/02/2017 12:54 PM Associated procedure: CABG Preprocedure checklist performed: 2 patient identifiers, risks & benefits discussed, patient evaluated, timeout performed, consent obtained and patient being monitored Staff Anesthesiologist: CANDY STRONG Surgeon: JEIMY IY Performed personally Indication for AYALA: assessment of ascending aorta, assessment of surgical repair , defect repair evaluation, hemodynamic monitoring, ventricular function, volume assessment, confirmation of pre-procedure diagnosis and valvular assessment CPT codes: 54079 - AYALA 2D imaging (w or w/o M-mode) including probe placement, image acquisition, interpretation & report, 51272 - PWD and/or CWD f/u or limited study and 39414 - Color flow velocity mapping Patient location: OR Intubated: yes Bite block: no Heart visualized: yes Insertion: easy Probe type: multiplane Modalities: 2D, color flow mapping, pulse wave Doppler and continuous wave Doppler Echocardiographic and Doppler Measurements Ventricular Findings Right Ventricle RV cavity size: normal RV hypertrophy: no RV thrombus: no RV global function: normal Left Ventricle LV cavity size: normal LV hypertrophy: no LV thrombus: no LV global function: mildly impaired LV ejection fraction: 45% Ventricular Wall Motion Four Chamber View Basal anterolateral: normal Basal inferoseptal: hypokinetic Mid anterolateral: normal Mid inferoseptal: hypokinetic Apical lateral: hypokinetic Apical septal: normal Two Chamber View Basal anterior: normal Basal inferior: hypokinetic Mid anterior: normal Mid inferior: hypokinetic Apical anterior: normal Apical inferior: hypokinetic Long [place] View Basal anteroseptal: normal Basal inferolateral: hypokinetic Mid anteroseptal: normal Mid inferolateral: normal Apical lateral: hypokinetic Apical septal: normal [place]: hypokinetic Mid Short [place] View Mid anteroseptal: normal Mid anterior: normal Mid anterolateral: normal Mid inferolateral: normal Mid inferior: hypokinetic Mid inferoseptal: hypokinetic Valves Aortic Valve Annulus: normal Stenosis: none Regurgitation severity: none Leaflet morphology: normal Leaflet motion: normal Mitral Valve Annulus: normal Stenosis: none Regurgitation severity: mild Leaflet morphology: normal Leaflet motion: normal Tricuspid Valve Annulus: normal Stenosis: none Regurgitation severity: mild Leaflet morphology: normal Leaflet motion: normal Pulmonic Valve Annulus: normal Stenosis: none Regurgitation severity: trace regurgitation Leaflet morphology: normal Aorta Ascending Aorta Size: normal Dissection: no Plaque thickness: 0-3 mm Plaque mobile: no Sinotubular Junction Size: normal Dissection: no Plaque thickness: 0-3 mm Plaque mobile: no Sinus of Valsalva Size: normal Dissection: no Plaque thickness: 0-3 mm Plaque mobile: no Descending Thoracic Aorta Size: normal Dissection: no Plaque thickness: 0-3 mm Plaque mobile: no Atria Right Atrium Size: normal and PA catheter SEC (smoke): no Thrombus: no Tumor: no Device: yes Left Atrium Size: normal SEC (smoke): no Thrombus: no Tumor: no Device: no Left atrial appendage size: normal Septa Intra-atrial septal morphology: normal Intra-ventricular septal morphology: normal Diastolic Function Diastolic dysfunction grade: I Other Findings Pericardium: normal Pleural effusion: none Pulmonary arteries: normal Pulmonary venous flow: normal Post Procedure Systolic anterior motion of the mitral valve: no Return to CBT for echo-related diagnosis: no Aorta intact after decannulation: yes Post-procedure LVEF measured: yes; 45% Post-procedure RV dysfunction: none Post-procedure comments: POST-INTERVENTION FINDINGS (RHYTHM: sinus): The LV systolic function is preserved with no inotropic support. The visually estimated EF is 45%. The inferior wall is less hypokinetic. The inferior septal wall is hypokinetic. The ascending aorta is intact and no dissection is seen following decannulation. Otherwise, findings are as above. Performed by: CANDY STRONG Authorized by: CANDY STRONG * Anesthesia Procedure Notes - Candy Strong MD - 12/02/2017 12:53 PM CDT Associated Order(s): ANESTHESIA PULMONARY ARTERY CATHETER INSERTION Anesthesia Procedure: Pulmonary Artery Catheter PULMONARY ARTERY CATHETER INSERTION Date/Time: 12/02/2017 11:53 AM This note is used in conjunction with the CVC Line Insertion note for additional details regarding the insertion of a Pulmonary Artery Catheter: PA Catheter Insertion Procedure Catheter type: standard Insertion depth: 48 cm Events: none Performed by: CANDY STRONG Authorized by: CANDY STRONG * Anesthesia Procedure Notes - Candy Strong MD - 12/02/2017 12:52 PM CDT Associated Order(s): ANESTHESIA CENTRAL LINE INSERTION Anesthesia Procedure: Central Venous Catheter Line CENTRAL LINE INSERTION Date/Time: 12/02/2017 11:52 AM Patient location: OR Indications: medications requiring CV access, inadequate peripheral IV access and hemodynamic pressure monitoring Preprocedure checklist performed: 2 patient identifiers, risks & benefits discussed, patient evaluated, timeout performed, consent obtained, patient being monitored and CVC bundle followed (proper hand washing, maximal sterile barrier technique with cap, sterile gown, sterile glove, sterile drape, and skin prep for antisepsis) CVC Line Insertion Procedure Skin prepped with chlorhexidine; skin prep agent completely dried prior to procedure. Patient Position: Trendelenburg Location: internal jugular vein Laterality: right Vein identification: ultrasound guided Confirmation of venous placement prior to dilation of vein by: ultrasound Ultrasound image captured Number of attempts: 1 Successful placement: yes Patient sedated: yes Sedation given: general Catheter: Catheter type: introducer placed using standard wire through needle technique Catheter size: 9 Fr Procedure Outcome Post procedure: all ports aspirated, dressing applied and line sutured; Dressing : chlorhexidine impregnated sponge Placement verification: x-ray verification pending Events: none Observations: patient tolerated well Performed by: CANDY STRONG Authorized by: CANDY STRONG * Anesthesia Procedure Notes - Krystian Waters CRNA - 12/02/2017 8:44 AM CDT Associated Order(s): ANESTHESIA ARTERIAL LINE INSERTION Anesthesia Procedure: Arterial Line Placement A-LINE INSERTION [...] Observation: pt tolerated well Performed by: KRYSTIAN WATERS Authorized by: JEIMY YI Associated attestation - Candy Strong MD - 12/02/2017 9:24 AM CDT Formatting of this note may be different from the original. ATTESTATION I was present during the entire procedure performed by a resident Staff name: Candy Strong MD Date: 12/02/2017 * Anesthesia Preprocedure Evaluation - Candy Strong MD - 12/01/2017 11:30 AM CDT Formatting of this note may be different from the original. Anesthesia Pre-Procedure Evaluation Name: Nimisha Jaramillo : 1955 Age: 62 y.o. Sex : female Procedure Date: 12/02/2017 Procedure: Procedure(s): BYPASS GRAFT CORONARY ARTERY Physical Assessment Vital Signs (last filed in past 24 hours): BP: 108/62 (12/01 1457) Temp: 36.3 C (97.3 F) (12/01 1449) Pulse: 78 (12/03 811) Respirations: 23 PER MINUTE (12/03 811) SpO2: 100 % (12/03 811) O2 Delivery: None (Room Air) (12/01 1449) Height: 157.5 cm (62") (12/01 1449) Weight: 72 kg (158 lb 12.8 oz) (12/01 1449) Dosing / Dry Weight: 72 kg (158 lb 12.8 oz) (12/01 1449) Patient History Allergies Allergen Reactions Fish Containing Products HIVES and EDEMA Ketoprofen EDEMA Tongue swelling Mushroom SEE COMMENTS Doesn't agree with her Penicillins STOMACH UPSET Current Medications Medication Directions amLODIPine (NORVASC) 10 mg tablet Take 10 [...] the skin three times daily with meals. Patient taking differently: Inject 10 Units under the skin three times daily with meals. 10 units plus 0-14 units on sliding scale insulin detemir(+) (LEVEMIR) 100 unit/mL soln Inject [...] every 6 hours as needed for Pain. Review of Systems/Medical History Patient summary reviewed Nursing notes reviewed Pertinent labs reviewed PONV Screening: Female gender and Postoperative opioids No history of anesthetic complications No family history of anesthetic complications Airway - negative Recent dental extractions, denies any subsequent bleeding, reports some sutures spontaneously dissolving/coming out without bleeding states she has had a cough since dental extraction ( throat irritated) Pulmonary Smoker: Previous smoker (30 yr smoker quit January 2017)no smoking X 1 yr. COPD, moderate Shortness of breath Noncompliant with albuterol inhaler Smokes marijuana once weekly Cardiovascular Recent diagnostic studies: ECG and echocardiogram -[facility] 11/23/17 revealed an occluded LAD with faint collaterals, 90% mid second obtuse marginal stenosis with a 70% ostial circumflex stenosis, 95% proximal posterior lateral stenosis. -CTS consulted-planning CABG but delayed due to dental issues -Echo 11/23/17 revealed EF 40-45% with anterior apical, apical and apical lateral wall dyskinesis/aneurysm. -carotid doppler 11/23/17 revealed >50% right ECA stenosis but only mild plaquing in ICAs -last dose Plavix 11/22/17. Platelet inhibition only 3%. Exercise tolerance: <4 METS Beta Sole therapy: Yes Hypertension, poorly controlled Coronary artery disease Coronary artery bypass graft PTCA Palpitations PVD CHF Hyperlipidemia Dyspnea on exertion Syncope (Hx of falls/syncope) Per pt family: pt has 8 blocked vessels and 13 stents, some stents are blocked GI/Hepatic/Renal GERD, poorly controlled No nausea No vomiting Neuro/Psych No seizures CVA (Hx stroke 2003; no residuals; no intervention) Substance abuse ( Marijuana use once per week) Neuropathy (Numbness/tingling in both feet and both hands) Brain aneurysm --states> 30 yrs ago had headache, was told she had non- operative aneurysm. . Last check up was 15 years ago. Recent MRI showed no evidence of reported aneurysm Diabetic retinopathy Musculoskeletal No neck pain Back pain (Chronic lower back pain) Endocrine/Other Diabetes (A1C 10.4), poorly controlled, type 2; using insulin Malignancy (cervical, s/p hysterectomy) Obesity Physical Exam Airway Findings Mallampati: IV TM distance: >3 FB Neck ROM: full Mouth opening: good Airway patency: adequate Dental Findings: Comments: dental extractions last week. No evidence of bleeding on brief exam. Cardiovascular Findings: Rhythm: regular Rate: normal No murmur, no carotid bruit, no peripheral edema Comments: RBBB Pulmonary Findings: Negative Breath sounds clear to auscultation. Abdominal Findings: Obese Comments: deferred Neurological Findings: Sedated Echo 11/23/2017 Moderately depressed left ventricular systolic function. LVEF 40-45% There is anterior apical, apical and apical lateral wall dyskinesis/aneurysm. Mild concentric left ventricular hypertrophy. Mild left atrial enlargement. No significant valvular abnormalities. No pericardial effusion. Carotid duplex 11/23/2017 The right external carotid artery has turbulent flow, elevated velocities suggesting a >50% stenosis. Mild heterogenous plaquing present in bilateral carotid arteries. Normal subclavian waveforms and velocities. Antegrade vertebral flow. Cath report 11/23/2017 ASSESSMENT/PLAN: 1. Severe coronary disease manifest by the following: a. Occluded mid left anterior descending artery with faint [id number] collaterals. b. 90% mid second obtuse marginal stenosis with a 70% ostial circumflex stenosis. c. 95% proximal posterior lateral stenosis. PFTs 11/23/2017 FVC 73% FEV1 83% [id number] 128% DLCO 52% Diagnostic Tests Hematology: Lab Results Component Value Date HGB 12.4 12/01/2017 HCT 37.2 12/01/2017 PLTCT 186 12/01/2017 WBC 5.2 12/01/2017 MCV 88.3 12/01/2017 MCH 29.5 12/01/2017 MCHC 33.4 12/01/2017 MPV 9.5 12/01/2017 RDW 13.1 12/01/2017 General Chemistry: Lab Results Component Value Date NA 136 12/01/2017 K 3.7 12/01/2017 CL 103 12/01/2017 CO2 25 12/01/2017 GAP 8 12/01/2017 BUN 17 12/01/2017 CR 0.85 12/01/2017 GLU 304 12/01/2017 CA 9.7 12/01/2017 ALBUMIN 3.9 12/01/2017 MG 1.8 11/24/2017 TOTBILI 0.5 12/01/2017 Coagulation: Lab Results Component Value Date PTT 25.0 11/23/2017 INR 1.0 11/23/2017 Anesthesia Plan ASA score: 4 Plan: general and invasive monitoring Special equipment/procedures: AYALA Induction method: intravenous NPO status: acceptable Informed Consent Anesthetic plan and risks discussed with patient, healthcare power of transactional attorney and spouse (DPOA fiance). Use of blood products discussed with patient, healthcare power of transactional attorney and spouse (DPOA fiance); consented to blood products. Plan discussed with: anesthesiologist and RN TEACHER. in this encounter Plan of Treatment Name Priority Associated Diagnoses Date/Time ANESTHESIA CENTRAL LINE INSERTION Routine 12/02/2017 12:52 PM CDT ANESTHESIA PULMONARY ARTERY CATHETER Routine 12/02/2017 12:53 PM CDT INSERTION ANESTHESIA TRANSEESOPHAGEAL Routine 12/02/2017 12:53 PM CDT ECHOCARDIOGRAM as of this encounter Results * ANESTHESIA ARTERIAL LINE INSERTION (12/02/2017 1:44 [...] Observation: pt tolerated well Performed by: KRYSTIAN WATERS Authorized by: JEIMY YI in this encounter Visit Diagnoses Not on filein this encounter Administered Medications Medication Order MAR Action Action Date Dose Rate Site aminocaproic acid (AMICAR) 12.5 g in Given - New 12/02/2017 40 mL/hr 40 mL/hr sodium chloride 0.9% (NS) IVPB Bag 12:54 CDT 250 mL, Intravenous, INTRA-PROCEDURE MED(CONT), Starting Thu12/02/17 at 1254, Until Thu12/02/17 at 1603, Anesthesia Intra-op aminocaproic acid (AMICAR) injection Given 12/02/2017 5 g Intravenous, INTRA-PROCEDURE MED, 12:54 CDT Starting Thu12/02/17 at 1254, Until Thu12/02/17 at 1603, Anesthesia Intra-op ceFAZolin (ANCEF) injection Given 12/02/2017 2 g INTRA-PROCEDURE MED, Starting Thu 11:39 CDT 12/02/17 at 1501, Until Thu12/02/17 at 1603, Anesthesia Intra-op Given 12/02/2017 2 g 15:01 CDT dexmedetomidine (PRECEDEX) 400 mcg in Given - New 12/02/2017 0.7 12.5 mL/hr sodium chloride 0.9% (NS) 100 mL IV Bag 14:18 CDT mcg/kg/hr infusion 100 mL, INTRA-PROCEDURE MED(CONT), Starting Thu12/02/17 at 1418, Until Thu12/02/17 at 1603, Anesthesia Intra-op electrolyte-A (PLASMA-LYTE A PH 7.4) Given - New 12/02/2017 injection Bag 11:53 CDT INTRA-PROCEDURE MED(CONT), Starting Thu12/02/17 at 1153, Until Thu12/02/17 at 1603, Anesthesia Intra-op fentaNYL citrate PF (SUBLIMAZE) Given 12/02/2017 250 mcg injection 13:40 CDT INTRA-PROCEDURE MED, Starting Thu12/02/17 at 1236, Until Thu12/02/17 at 1603, Pain Injectable, Anesthesia Intra-op Given 12/02/2017 100 mcg 15:31 CDT Given 12/02/2017 100 mcg 15:33 CDT heparin (porcine) injection Given 12/02/2017 5,000 Units Intravenous, INTRA-PROCEDURE MED, 12:31 CDT Starting Thu12/02/17 at 1231, Until Thu12/02/17 at 1603, Anesthesia Intra-op Given 12/02/2017 20,000 Units 13:27 CDT midazolam (VERSED) injection Given 12/02/2017 3 mg Intravenous, INTRA-PROCEDURE MED, 11:15 CDT Starting Thu12/02/17 at 1115, Until Thu12/02/17 at 1603, Agitation Injectable, Anxiety Injectable, Anesthesia Intra-op Given 12/02/2017 2 mg 13:40 CDT Given 12/02/2017 2 mg 15:35 CDT nitroGLYCERIN 50 mg/D5W 250 mL infusion Infusion 12/02/2017 0.75 16 mL/ hr 250 mL, Intravenous, INTRA-PROCEDURE Restarted 15:30 CDT mcg/kg/min MED(CONT), Starting Thu12/02/17 at 1453, Until Thu12/02/17 at 1603, Anesthesia Intra-op Dose/Rate Change 12/02/2017 1 mcg/kg/min 21.4 mL/hr 15:34 CDT Dose/Rate Change 12/02/2017 0.75 16 mL/hr 15:43 CDT mcg/kg/min phenylephrine (DEUCE-SYNEPHRINE) 10 mg in Given - New 12/02/2017 0.2 21.4 mL/hr sodium chloride 0.9% (NS) 250 mL IV drip Bag 12:26 CDT mcg/kg/min (std conc) 250 mL, Intravenous, INTRA-PROCEDURE MED(CONT), Starting Thu12/02/17 at 1226, Until Thu12/02/17 at 1603, Anesthesia Intra-op Infusion Restarted 12/02/2017 0.2 21.4 mL/hr 12:48 CDT mcg/kg/min propofol (DIPRIVAN) injection Given 12/02/2017 30 mg INTRA-PROCEDURE MED, Starting Thu 11:28 CDT 12/02/17 at 1128, Until Thu12/02/17 at 1603, Anesthesia Intra-op Given 12/02/2017 50 mg 15:05 CDT protamine injection Given 12/02/2017 30 mg INTRA-PROCEDURE MED, Starting Thu 14:59 CDT 12/02/17 at 1455, Until Thu12/02/17 at 1603, Anesthesia Intra-op Given 12/02/2017 20 mg 15:00 CDT Given 12/02/2017 20 mg 15:01 CDT sodium chloride 0.9 % infusion Given - New 12/02/2017 1,000 mL, Intravenous, at 20 mL/hr, Bag 11:16 CDT CONTINUOUS, Starting Thu12/02/17 at 0845, Until Thu12/02/17 at 1606, Pre-Op vecuronium (NORCURON) injection Given 12/02/2017 10 mg Intravenous, INTRA-PROCEDURE MED, 11:28 CDT Starting Thu12/02/17 at 1128, Until Thu12/02/17 at 1603, Anesthesia Intra-op Given 12/02/2017 10 mg 13:40 CDT in this encounter
--- OUTSIDE RECORDS SUMMARY | 2017-12-09 01:03 | XMS REPORT | Encounter Summary ---
Author Author [facility] Organization [facility] Address Unknown Phone Unavailable Care Team Providers Care Decorative Engraver Name Role Phone Deann Parker MD PCP Encounter Details Date Type Department Care Team Description 12/01/2017 [facility] Cardiology IvaKenny MD Arrived Encounter [address] [place] [address] [address] [place], [place] [id number] Social History Tobacco Use Types Packs/Day Years Used Date Former Smoker 1 45 Quit: 01/23/2017 Smokeless Tobacco: Never Used Alcohol Use Drinks/Week oz/Week Comments No Sex Assigned at Date Recorded Not on file as of this encounter Functional Status Functional Status Response Date of Assessment Does the patient have a hearing impairment: No 11/24/2017 as of this encounter Medications at Time of Discharge [...] artery disease involving three times daily with lower sioux coronary artery of meals. Plus 0-14 units lower sioux heart with on sliding scale. unstable angina pectoris (HCC) insulin detemir(+) Inject 26 Units under the 10 mL 12 12/08/2017 (LEVEMIR) 100 unit/mL skin at bedtime daily. solnIndications: Coronary artery disease involving lower sioux coronary artery of lower sioux heart with unstable angina pectoris (HCC) lisinopril [...] with food. tabletIndications: Coronary artery disease involving lower sioux coronary artery of lower sioux heart with unstable angina pectoris (HCC) traMADol (ULTRAM) 50 mg Take 50 mg by mouth every tablet 6 hours as needed for Pain. amLODIPine (NORVASC) 10 Take 10 mg by mouth 12/08/2017 mg tablet daily. insulin aspart U-100 Inject 0-14 Units under 45 mL 3 11/25/2017 (NOVOLOG FLEXPEN) 100 the skin three times unit/mL injection daily with meals. PENIndications: Coronary artery disease involving lower sioux coronary artery of lower sioux heart with unstable angina pectoris (HCC) insulin detemir(+) Inject 35 Units under the 10 mL 12 11/25/2017 (LEVEMIR) 100 unit/mL skin at bedtime daily. solnIndications: Coronary artery disease involving lower sioux coronary artery of lower sioux heart with unstable angina pectoris (HCC) isosorbide mononitrate SR Take 30 mg by mouth every 12/08/2017 (IMDUR) 30 mg tablet morning. lisinopril (PRINIVIL; Take 20 mg by mouth 12/08/2017 ZESTRIL) 20 mg tablet daily. metoprolol XL (TOPROL XL) Take 100 mg by mouth 12/08/2017 100 mg extended release daily. tablet as of this encounter Plan of Treatment [...] Performing Laboratory [facility] [address] [place] [address] * CBC (12/01/2017 1:43 PM) Component Value [...] Specimen Performing Laboratory [facility] [address] [place] [address] * TYPE & CROSSMATCH (12/01/2017 11:55 AM) Component Value Ref Range Units Ordered 0 Crossmatch Expires 12/04/2017 Record Check FOUND ABO/RH(D) A POS Antibody Screen NEG Electronic Crossmatch YES Specimen Performing Laboratory [facility] [address] [place] [address] in this encounter Visit Diagnoses Diagnosis Coronary artery disease involving lower sioux heart, angina presence unspecified, unspecified vessel or lesion type
--- OUTSIDE RECORDS SUMMARY | 2017-12-09 01:04 | XMS REPORT | Encounter Summary ---
Author Author [facility] Organization [facility] Address Unknown Phone Unavailable Care Team Providers Care Touch Up Painter Name Role Phone Deann Parker MD PCP Reason for Visit * Auth/Cert (Routine) Status Reason Specialty Diagnoses / Referred By Referred To Procedures Contact Contact Encounter Details Date Type Department Care Team Description 11/24/2017 Anesthesia Main Operating Room Meghan Iniguez MD Event [address] [facility] [address] [place] [address] [address] [place] [address] [phone] Anesthesia Record Procedure Name Responsible Anesthesia Start Time Anesthesia Stop Time Anesthesiologist EXTRACTION TEETH #6, 7, Carolina Del Rosario MD 11/24/17 17311/24/17 1829 8, 9, 10, 11, 14, 22-27 (Bilateral Mouth) Date Time Event Comment 1714 AN Equip Check 2017 1733 Out of Pre Procedure 1734 Anes Start 1735 An Start Data 1735 In Room 1742 An Induction The patient was reevaluated immediately before moderate or deep sedation use and before anesthesia induction. 1744 An Intubation 1746 Proc Start 1747 Anesthesia Ready 1823 An Extubation 1824 an stop data 1826 Handoff to RN I completed my SBAR handoff to the receiving nurse. 1828 An Stop Meds Name Total midazolam (VERSED) 1 mg/mL injection 2 mg fentaNYL PF (SUBLIMAZE) injection 50 mcg lidocaine (2%) 200 mg/10mL Injection 80 mg syringe propofol (DIPRIVAN) 200 mg/ 20 mL 120 mg injection (VIAL) succinylcholine (ANECTINE) injection 100 mg (VIAL) ondansetron (ZOFRAN) injection 4 mg phenylephrine (DEUCE-SYNEPHRINE) 0.1 mg/mL 600 mcg injection (SYRINGE) haloperidol (HALDOL) injection 1 mg sodium chloride 0.9 % infusion 700 mL * Name O2 N2O Inspired N2O Air Sevoflurane Inspired Sevoflurane * No blood administrations on file. Type Details Placement Removal Peripheral 11/23/17; 0910; IV Therapy; L; Distal; 11/23/17 0910 by Rach , 11/25/17 0800 by ASIYA Whitehead Forearm; 20 G; No; N/A; 1; 1 inches; PORTIA Mejia RN 11/25/17; 0800 Peripheral 11/23/17; 0910; IV Therapy; R; Distal; 11/23/17 0910 by Rach , 11/25/17 0800 by ASIYA Whitehead Forearm; 22 G; No; N/A; 1; 1 inches; PORTIA Mejia RN 11/25/17; 0800 Puncture 11/23/17; 1149; Right; Femoral; 11/23/17 1149 by Will, 1999 by Wound 12/02/17; 1999 PORTIA Lee Katherine, PORTIA (Sheath) Wounds 11/24/17; 1705; Other (Comment); 11/24/17 1705 by Lan, 12/02/171999 by (NOT for Surgical Incision; 12/02/171999; PORTIA Ocasio Katherine, PORTIA Pressure MOUTH,NO DRESSING.2.8 ml., 4 % Injuries) PRILOCAINE PLAIN. ETT 11/24/17; 1745; Mask ventilation not 11/24/17 1745 by Mauricio, 11/24 182 by Carin, attempted (0); Video laryngoscopy, MAIRA Gerardo MD Stylet, Rapid sequence; Single-Lumen, Cuffed; 7mm; GlideScope; 3; Oral; 1-Full view of the glottis; 1 insertion attempt; Auscultation, ETCO2 Detector; 21 centimeters; Glidescope used d/t poor dentition. Atraumatic, dentition unchanged; 11/24/17; 182 in this encounter Social History Tobacco Use [...] OR Notes * Anesthesia Postprocedure Evaluation - Carla Easton MD - 11/24/2017 7:04 PM CDT Post-Anesthesia Evaluation Name: Nimisha Jaramillo : 1955 Age: 62 y.o. Sex : female Procedure Date: 11/24/2017 Procedure: Procedure(s): EXTRACTION TEETH #6, 7, 8, 9, 10, 11, 14, 22-27 Surgeon: Surgeon(s): Dena Gayle DDS Post-Anesthesia Vitals BP: (115-118)/(63-67) Temp: [36 C (96.8 F)-36.1 C (97 F)] Pulse: [68-72] Respirations: [18 PER MINUTE-20 PER MINUTE] SpO2: [94 %-100 %] O2 Delivery: None (Room Air) (11/24 1845) SpO2 Pulse: [68-71] Post Anesthesia Evaluation Note Evaluation location: pre/post Patient participation: recovered; patient participated in evaluation Level of consciousness: alert Pain score: 5 Pain management: adequate Hydration: normovolemia Temperature: 36.0C - 38.4C Airway patency: adequate Perioperative Events Perioperative events: no Post-op nausea and vomiting: no PONV Postoperative Status Cardiovascular status: hemodynamically stable Respiratory status: spontaneous ventilation Perioperative Events Perioperative Event: No Emergency Case Activation: No Associated attestation - Carolina Del Rosario MD - 11/26/2017 1:37 PM CDT Formatting of this note may be different from the original. ATTESTATION Post-Anesthesia Evaluation Attestation: I reviewed and agree the indicated post- anesthesia care was provided. Staff name: Carolina Del Rosario MD Date: 11/26/2017 * Anesthesia Preprocedure Evaluation - Deysi Figueredo SRNA - 11/24/2017 11:46 AM CDT Formatting of this note may be different from the original. Anesthesia Pre-Procedure Evaluation Name: Nimisha Jaramillo : 1955 Age: 62 y.o. Sex : female Procedure Date: 11/24/2017 Procedure: Procedure(s): EXTRACTION TEETH #6, 7, 8, 9, 10, 11, 14, 22-27 Physical Assessment Vital Signs (last filed in past 24 hours): BP: 111/60 (11/24 1045) Temp: 36.7 C (98 F) (11/24 1045) Pulse: 80 (11/24 1045) Respirations: 16 PER MINUTE (11/24 1045) SpO2: 97 % (11/24 1045) O2 Delivery: None (Room Air) (11/24 104) Height: 157.5 cm (62") (11/23 1401) Weight: 72 kg (158 lb 11.7 oz) (11/23 1401) Patient History Allergies Allergen Reactions Fish Containing Products UNKNOWN Ketoprofen UNKNOWN Mushroom UNKNOWN Current Medications Medication Directions amLODIPine (NORVASC) 10 mg tablet Take 10 mg by mouth daily. aspirin EC 81 mg tablet Take 81 mg by mouth daily. Take with food. atorvastatin (LIPITOR) 40 mg tablet Take 40 mg by mouth daily. calcium carbonate (TUMS) 500 mg (200 mg elemental calcium) chewable tablet Chew 500 mg by mouth as Needed. clopiDOGrel (PLAVIX) 75 mg tablet Take 75 mg by mouth daily. furosemide (LASIX) 40 mg tablet Take 40 mg by mouth every morning. insulin detemir(+) (LEVEMIR) 100 unit/mL soln Inject 80 Units under the skin twice daily before meals. insulin lispro (HUMALOG PEN SC) Inject 60 Units under the skin before meals and at bedtime. isosorbide mononitrate SR (IMDUR) 30 mg tablet Take 30 mg by mouth every morning. lisinopril (PRINIVIL; ZESTRIL) 20 mg tablet Take 20 mg by mouth daily. metFORMIN (GLUCOPHAGE) 1,000 mg tablet Take 1,000 mg by mouth twice daily with meals. metoprolol XL (TOPROL XL) 100 mg extended release tablet Take 100 mg by mouth daily. nitroglycerin (NITROSTAT) 0.[address] 0.4 mg under tongue every 5 minutes as needed for Chest Pain. Max of 3 tablets, call 911. Review of Systems/Medical History Patient summary reviewed Nursing notes reviewed Pertinent labs reviewed PONV Screening: Female gender and Postoperative opioids No history of anesthetic complications No family history of anesthetic complications Airway - negative Pulmonary Current smoker (Previous smoker (30 yr smoker quit January 2017)); patient did not smoke on day of surgery COPD, moderate Shortness of breath ( Secondary to ischemic cardiomyopathy) Noncompliant with albuterol inhaler Cardiovascular Recent diagnostic studies: ECG and echocardiogram -[facility] 11/23/17 revealed an occluded LAD with [...] tolerance: <4 METS Beta Sole therapy: Yes Beta blockers within 24 hours: Yes Hypertension, poorly controlled Coronary artery disease ( Carotid stenosis) PVD CHF Hyperlipidemia Syncope (Hx of falls/syncope) Per pt family: pt has 8 blocked vessels and 13 stents, some stents are blocked GI/Hepatic/Renal GERD (Pt states "super bad" not helped by current meds), poorly controlled No nausea No vomiting Neuro/Psych CVA (Hx stroke 2003; no residuals; no intervention) Substance abuse ( Marijuana use once per week) Neuropathy (Numbness/tingling in both feet and both hands) Brain aneurysm -- non-operative. Last check up was 15 years ago. Musculoskeletal No neck pain Back pain (Chronic lower back pain) Endocrine/Other Diabetes (A1C 10.4), poorly controlled, type 2; using insulin Plavix last taken 11/22/17 Physical Exam Airway Findings Mallampati: IV TM distance: >3 FB Neck ROM: full Mouth opening: good Airway patency: adequate Dental Findings: Poor dentition and increased risk for dental injury; pt advised Cardiovascular Findings: Rhythm: regular Rate: normal Comments: RBBB Pulmonary Findings: Negative Abdominal Findings: Comments: deferred Neurological Findings: Negative Diagnostic Tests Hematology: Lab Results Component Value Date HGB 12.7 11/24/2017 HCT 36.3 11/24/2017 PLTCT 143 11/24/2017 WBC 6.0 11/24/2017 MCV 86.8 11/24/2017 MCH 30.4 11/24/2017 MCHC 35.0 11/24/2017 MPV 9.7 11/24/2017 RDW 13.4 11/24/2017 General Chemistry: Lab Results Component Value Date NA 136 11/24/2017 K 3.8 11/24/2017 CL 105 11/24/2017 CO2 22 11/24/2017 GAP 9 11/24/2017 BUN 17 11/24/2017 CR 0.61 11/24/2017 GLU 254 11/24/2017 CA 9.4 11/24/2017 MG 1.8 11/24/2017 Coagulation: Lab Results Component Value Date PTT 25.0 11/23/2017 INR 1.0 11/23/2017 Anesthesia Plan ASA score: 4 Plan: MAC Induction method: intravenous Comments: (Apple sauce and chocolate pudding at 8AM 11/24/17 Plavix last taken 11/22/17) Informed Consent Anesthetic plan and risks discussed with patient and healthcare power of proposal review analyst (DPOA fiance). Use of blood products discussed with patient and healthcare power of proposal review analyst ( DPOA fiance); consented to blood products. Plan discussed with: SRNA. in this encounter Plan of Treatment Not on fileas of this encounter Visit Diagnoses Not on filein this encounter Administered Medications Medication Order MAR Action Action Date Dose Rate Site fentaNYL citrate PF (SUBLIMAZE) Given 11/24/2017 50 mcg injection 17:43 CDT INTRA-PROCEDURE MED, Starting 11/24/17 at 1743, Until Thu11/24/17 at 1831, Pain Injectable, Anesthesia Intra-op haloperidol (HALDOL) injection Given 11/24/2017 1 mg INTRA-PROCEDURE MED, Starting Thu 18:06 CDT 11/24/17 at 1806, Until Thu11/24/17 at 1831, Agitation Injectable, Anxiety Injectable, Anesthesia Intra-op lidocaine (PF) injection Given 11/24/2017 80 mg INTRA-PROCEDURE MED, Starting Thu 17:43 CDT 11/24/17 at 1743, Until Thu11/24/17 at 1831, Anesthesia Intra-op midazolam (VERSED) injection Given 11/24/2017 2 mg Intravenous, INTRA-PROCEDURE MED, 17:34 CDT Starting Thu11/24/17 at 1734, Until Thu11/24/17 at 1831, Agitation Injectable, Anxiety Injectable, Anesthesia Intra-op ondansetron (ZOFRAN) injection Given 11/24/2017 4 mg Intravenous, INTRA-PROCEDURE MED, 18:07 CDT Starting Thu11/24/17 at 1807, Until Thu11/24/17 at 1831, Nausea/Vomiting Injectable, Anesthesia Intra-op phenylephrine in NS injection syringe Given 11/24/2017 100 mcg Intravenous, INTRA-PROCEDURE MED, 18:04 CDT Starting Thu11/24/17 at 1751, Until Thu11/24/17 at 1831, Symptomatic Hypotension, Anesthesia Intra-op Given 11/24/2017 100 mcg 18:10 CDT Given 11/24/2017 100 mcg 18:13 CDT propofol (DIPRIVAN) injection Given 11/24/2017 120 mg INTRA-PROCEDURE MED, Starting Thu 17:43 CDT 11/24/17 at 1743, Until Thu11/24/17 at 1831, Anesthesia Intra-op succinylcholine (ANECTINE) injection Given 11/24/2017 100 mg Intravenous, INTRA-PROCEDURE MED, 17:43 CDT Starting Thu11/24/17 at 1743, Until Thu11/24/17 at 1831, Anesthesia Intra-op in this encounter
--- OUTSIDE RECORDS SUMMARY | 2017-12-09 01:04 | XMS REPORT | Encounter Summary ---
Author Author [facility] Organization [facility] Address Unknown Phone Unavailable Care Team Providers Care Lead Level Designer Name Role Phone Ashley Banegas MD PCP Reason for Visit * Auth/Cert (Routine) Status Reason Specialty Diagnoses / Referred By Referred To Procedures Contact Contact Encounter Details Date Type Department Care Team Description 11/23/2017 Hospital Cardiothor Prgrsv cr Arnulfo Cortes MD Coronary artery disease - Encounter [address] involving [place] coronary 11/25/2017 [place] [address] MS 4023 artery of [place] heart [phone] [place] [address] with unstable angina [phone] pectoris (HCC) Social History Tobacco Use Types Packs/Day Years Used Date Former Smoker Quit: 01/23/2017 Smokeless Tobacco: Never Used Alcohol Use Drinks/Week oz/Week Comments No Sex Assigned at Date Recorded Not on file as of this encounter Last Filed Vital Signs Vital Sign Reading Time Taken Blood Pressure 116/66 11/25/2017 7:32 AM CDT Pulse 80 11/25/2017 7:32 AM CDT Temperature 37.3 C (99.1 F) 11/25/2017 7:32 AM CDT Respiratory Rate - - Oxygen Saturation 97% 11/25/2017 7:32 AM CDT Inhaled Oxygen - - Concentration Weight 71.8 kg (158 lb 4.6 oz) 11/23/2017 8:40 AM CDT Height 157.5 cm (5' 2") 11/23/2017 8:40 AM CDT Body Mass Index 28.95 11/23/2017 8:40 AM CDT in this encounter Functional Status Functional Status Response Date of Assessment Does the patient have a hearing impairment: No 11/24/2017 as of this encounter Discharge Summaries * Corrie Fuentes PA-C - 11/23/2017 9:04 AM CDT Formatting of this note may be different from the original. Physician Discharge Summary Name: Nimisha Jaramillo Date Of : 1955 Age: 62 years Admit date: 11/23/2017 Discharge date: 11/25/2017 Attending Physician: Dr. Cortes Service: Cardiology-Interventional Physician Summary completed by: Corrie Fuentes PA-C Reason for hospitalization: CAD, chest pain/dyspnea, cardiac catheterization Significant PMH: Past Medical History: Diagnosis Date Bilateral carotid artery disease (HCC) 11/17/2017 05/04/17 - Carotid U/S: mild 1-39% stenosis, nonobstructive disease bilaterally. Coronary artery disease involving [place] coronary artery of [place] heart with unstable angina pectoris ([facility]) 11/17/2017 03/04/17 - LHC: Total occlusion of [...] Mixed hyperlipidemia 11/17/2017 PAD (peripheral artery disease) ([facility]) 11/17/2017 Type 2 diabetes mellitus with complication, with long-term current use of insulin ([facility]) 11/17/2017 Allergies: Fish containing products; Ketoprofen; and Mushroom Physical Exam notable for: BP 116/66 (BP Source: Arm, Right) | Pulse 80 | Temp 37.3 C (99.1 F) | Ht 1.575 m (5' 2") | Wt 71.8 kg (158 lb 4.6 oz) | SpO2 97% | BMI 28.95 kg/m Telemetry: NSR Mouth: no bleedign/oozing from gums. Neck: no JVD. Heart: RRR. Lungs: rhonchi bilaterally but no rales, wheezing Abdomen: soft, BS present. Extremities: no edema, right groin without hematoma or bruit, pedal pulses intact. Lab/Radiology studies notable for: Hematology: Lab Results Component Value Date HGB 12.7 11/24/2017 HCT 36.3 11/24/2017 PLTCT 143 11/24/2017 WBC 6.0 11/24/2017 MCV 86.8 11/24/2017 MCHC 35.0 11/24/2017 MPV 9.7 11/24/2017 RDW 13.4 11/24/2017 , Coagulation: Lab Results Component Value Date PTT 25.0 11/23/2017 INR 1.0 11/23/2017 , General Chemistry: Lab Results Component Value Date NA 138 11/25/2017 K 3.7 11/25/2017 CL 107 11/25/2017 GAP 7 11/25/2017 BUN 12 11/25/2017 CR 0.63 11/25/2017 GLU 239 11/25/2017 CA 9.0 11/25/2017 MG 1.8 11/24/2017 , Mg and PO4: Lab Results Component Value Date MG 1.8 11/24/2017 , HgbA1C: Lab Results Component Value Date HGBA1C 10.4 11/23/2017 and Lipid Profile: Lab Results Component Value Date CHOL 193 11/23/2017 TRIG 289 11/23/2017 HDL 51 11/23/2017 LDL 87 11/23/2017 VLDL 58 11/23/2017 Brief Hospital Course: Nimisha Jaramillo is a 62 year old female with history of DM2, COPD, PAD, HLD, HTN, mild cardiomyopathy, CAD with prior stents to the LAD, RCA, Cx with PTCA of occluded LAD 02/2017. She has been having exertional chest discomfort and dyspnea. A cardiac catheterization was repeated on 11/23/17, revealing severe multivessel CAD (see below). CTS was consulted and CABG is planned. The patient has had significantly elevated blood sugars which have improved post extraction of 6 teeth on 11/11 but she required extraction of the remaining teeth, prior to CABG. Dentistry was consulted and recommended a Panorex xray, noted below. Extraction of additional teeth was recommended and was completed on 11/24/17. Plavix was held after her dose on 11/22/17, per request of CTS and dentistry. She had some mild bleeding post teeth extraction overnight, but this resolved prior to discharge. Endocrinology was consulted regarding diabetes management. Reportedly her blood sugars had been running in 500s prior to teeth extraction on 11/11 and recent insulin adjustment. FACE CLEANER, she has been taking Levemir insulin 88 units BID ( early am, HS) and Novolog 75 units TID with meals but reports she usually has not been taking the Novolog with breakfast. She has also been on Metformin 1000mg BID. She typically checks her blood sugar after eating to decide what to do with her insulin. While initially hospitalized, she was not getting scheduled insulin, only correction factor which was increased from low dose to moderate dose. It seemed she did not require the high doses of insulin she was taking at home. Endocrinology recommended resuming Levemir (Lantus while hospitalized) 35 units daily and at discharge, to resume 10 units of Novolog before meals as well as continue moderate dose correction factor with meals. The tobacco educator also met with the patient and her fiance. She was instructed to check her blood sugar 3x daily, before meals. If her sugar is too low, she may need to cut back on the 10 units of Novolog as she will not be eating as usual, post teeth extraction. In the last 12 hours of her admission, blood sugars were 97-144. She will resume Metformin at the FACE CLEANER dose, only when she is eating regular meals and she was instructed to take it on a full stomach. She was instructed to have liquids for the first day, then advance to a soft diet as tolerated. We discussed increasing Atorvastatin to 80mg daily as her LDL is 87, but reportedly she was recently started on injections every 2 weeks for "her heart" which we suspect is a PCSK9 inhibitor. The patient and her fiance were not sure if this is the case, but this will be confirmed when she returns home. She had an echocardiogram, carotid doppler and PFTs as part of her preoperative workup. She was started on Spironolactone 12.5mg daily due to her cardiomyopathy. She has been on Lasix 40mg daily FACE CLEANER but was instructed to stop this and only take 20mg daily if needed for edema, weight gain or increased dyspnea. Chest xray revealed no acute process. She also reported history of an inoperable cerebral aneurysm, last evaluated 15 years ago. An MRA of her brain was unremarkable with no evidence of aneurysm. She will return next week for CABG on 12/02/17. Upon discharge the patient and family were given post procedure instructions/ restrictions as well as written instructions ( see Discharge instructions). Condition at Discharge: Stable Hospital Problems Active Problems * (Principal)Coronary artery disease involving [place] coronary artery of [place] heart with unstable angina pectoris (HCC) Essential hypertension Mixed hyperlipidemia History of tobacco abuse Type 2 diabetes mellitus with complication, with long-term current use of insulin (HCC) Tooth decay CAD (coronary artery disease) Surgical Procedures: None Significant Diagnostic Studies and Procedures: Cardiac Catheterization 11/24/2017 1. Left ventricular end-diastolic pressures were 8 [...] There was some faint left-to- left and [id number] collateralization of the apical segment of the [...] second obtuse marginal branch. There was some [id number] collateralization of the posterolateral segment. 5. The [place] right coronary was visualized with a JR4 [...] vessels arising distal to this segment faintly. Echocardiogram 11/23/17 Moderately depressed left ventricular systolic function. LVEF 40-45% There is anterior apical, apical and apical lateral wall dyskinesis/aneurysm. Mild concentric left ventricular hypertrophy. Mild left atrial enlargement. No significant valvular abnormalities. No pericardial effusion. Carotid Doppler 11/23/17 The right external carotid artery has turbulent flow, elevated velocities suggesting a >50% stenosis. Mild heterogenous plaquing present in bilateral carotid arteries. Normal subclavian waveforms and velocities. Antegrade vertebral flow. Panorex Exam 11/23/17 1. Multiple missing and extracted teeth, with [...] canine tooth, likely due to periodontal disease/gingivitis. Consults: CTS, Dentistry and Endocrinology Patient Disposition: Home Patient instructions/medications: Procedure Specific Activity *You may drive after 2 days. *You may shower after discharge. *NO tub baths, hot tubs, or swimming for 5 days. *NO lifting greater than 15 pounds for 1 week. *NO sexual or strenuous activity for 1 week. Discharge Comments -Stop Plavix (clopidogrel) -Restart Metformin 1000mg twice daily after meals, only when you start eating regular meals again -Check your blood sugar 3 times daily, before meals and at bedtime. Take Novolog insulin 10 units before meals plus moderate dose Novolog correction factor (sliding scale), but if your blood sugar is getting too low (<80), reduce correction factor by half. -Take Levemir insulin 35units at bedtime. -Stop Furosemide (lasix) but if you are getting more swelling, short of breath, take 20mg daily -Start Spironolactone 12.5mg daily Report These Signs and Symptoms Please contact your doctor if you have any of the following symptoms: Chest pain , shortness of breath, lightheadedness, dizziness, near fainting, palpitations, abd pain, back pain, or bleeding. and temperature higher than 100 degrees F, uncontrolled pain or persistent nausea and/or vomiting. Questions About Your Stay For questions or concerns regarding your hospital stay: - DURING BUSINESS HOURS (8:00 AM - 4:30 PM): Call [phone] and asked to be transferred to your discharge attending physician. - AFTER BUSINESS HOURS (4:30 PM - 8:00 AM, on weekends, or holidays): Call [phone] and ask the bogger operator to page the on-call doctor for the discharge attending physician. Discharging attending physician: ARNULFO CORTES [[id number]] Cardiac Diet Limiting unhealthy fats and cholesterol [...] home, you can call a dietitian at [phone]. Incision Care *Call if there is an increase in pain, swelling, or redness in your right groin or your gums. Take Tylenol for pain. *DO NOT soak groin incision in water. *NO tub baths, hot tubs, or swimming. *You may shower after discharge. [facility] [employer] Information [facility] is a gathering place for individuals, families, and friends living with serious or chronic physical illness. They offer education and support programs that help you live your life to the fullest. Unless otherwise noted, programs are offered at NO CHARGE. However, REGISTRATION IS REQUIRED 48 hours in advance. To arrange for a tour, register for a class, or ask a questions please call . You can also visit [email or web address] for more information. Current Discharge Medication List START taking these medications Details spironolactone (ALDACTONE) 25 mg tablet Take 0.5 tablets by mouth daily. Take with food. Qty: 15 tablet, Refills: 5 PRESCRIPTION TYPE: Normal Associated Diagnoses: Coronary artery disease involving [place] coronary artery of [place] heart with unstable angina pectoris (HCC) CONTINUE these medications which have been CHANGED or REFILLED Details !! insulin aspart U-100 (NOVOLOG FLEXPEN) 100 unit/mL injection PEN Inject 10 Units under the skin three times daily with meals. Qty: 45 mL, Refills: 3 PRESCRIPTION TYPE: No Print Associated Diagnoses: Coronary artery disease involving [place] coronary artery of [place] heart with unstable angina pectoris (HCC) !! insulin aspart U-100 (NOVOLOG FLEXPEN) 100 unit/mL injection PEN Inject 0-14 Units under the skin three times daily with meals. Qty: 45 mL, Refills: 3 PRESCRIPTION TYPE: Normal Associated Diagnoses: Coronary artery disease involving [place] coronary artery of [place] heart with unstable angina pectoris (HCC) insulin detemir(+) (LEVEMIR) 100 unit/mL soln Inject 35 Units under the skin at bedtime daily. Qty: 10 mL, Refills: 12 PRESCRIPTION TYPE: No Print Associated Diagnoses: Coronary artery disease involving [place] coronary artery of [place] heart with unstable angina pectoris (HCC) !! - Potential duplicate medications found. Please discuss with provider. CONTINUE these medications which have NOT CHANGED Details amLODIPine (NORVASC) 10 mg tablet Take 10 mg by mouth daily. PRESCRIPTION TYPE: Historical Med aspirin EC 81 mg tablet Take 81 [...] by mouth daily. PRESCRIPTION TYPE: Historical Med isosorbide mononitrate SR (IMDUR) 30 mg tablet Take 30 mg by mouth every morning. PRESCRIPTION TYPE: Historical Med lisinopril (PRINIVIL; ZESTRIL) 20 mg tablet Take 20 mg by mouth daily. PRESCRIPTION TYPE: Historical Med metoprolol XL (TOPROL XL) 100 mg extended release tablet Take 100 mg by mouth daily. PRESCRIPTION TYPE: Historical Med nitroglycerin (NITROSTAT) 0.[address] 0.4 mg under tongue every 5 minutes as needed for Chest Pain. Max of 3 tablets, call 911. PRESCRIPTION TYPE: Historical Med traMADol (ULTRAM) 50 mg tablet Take 50 mg by mouth every 6 hours as needed for Pain. PRESCRIPTION TYPE: Historical Med The following medications were removed from your list. This list includes medications discontinued this stay and those removed from your prior med list in our system amoxicillin (AMOXIL) 500 mg capsule clopiDOGrel (PLAVIX) 75 mg tablet furosemide (LASIX) 40 mg tablet insulin lispro (HUMALOG PEN SC) metFORMIN (GLUCOPHAGE) 1,000 mg tablet Scheduled appointments: December 01, 2017 2:00 PM CDT Pre-Op Nurse with [facility] [address] [facility] [address] December 01, 2017 2:30 PM CDT PAC Office Visit with PAC ROOM 6 Preoperative Assessment Clinic (--) [address] [facility] [address] Pending items needing follow up: as above Signed: Corrie Fuentes PA-C 11/25/2017 cc: Primary Care Physician: Ashley Banegas Verified Referring physicians: Ashley Banegas MD in this encounter Discharge Instructions * Discharge Instr - Appointments - Meghan Mercado, JULIO - 11/25/2017 7:48 AM CDT Formatting of this note may be different from the original. Daily schedule Taking insulin and monitoring your blood sugar Morning: Take your blood sugar & write down the results Take mealtime insulin of NOVOLOG PER scale below. Eat breakfast within 15 minutes Lunch: Take your blood sugar & write down the results Take mealtime insulin of NOVOLOG PER scale below. Supper/Dinner: Take your blood sugar & write down the results Take mealtime insulin of NOVOLOG PER scale below. Eat supper within 15 minutes Novolog is in the [place]. If your pre meal Blood sugar is: Give this # of units of Novolog Greater than 70, Less than 140 0 + 10=10 140 to 180 2+ 10=12 181 to 220 4+ 10=14 221 to 260 6+ 10=16 261 to 300 8+ 10=18 301 to 350 10+ 10=20 351 to 400 12+ 10=22 400 or higher 14+ 10=24 Bedtime: Take your blood sugar & write down the results Take 35 units of Lantus in this encounter Medications at Time of [...] D3) (VITAMIN D) 1,000 daily. unit cap insulin aspart U-100 Inject 0-14 Units under 45 mL 3 12/08/2017 (NOVOLOG FLEXPEN) 100 the skin three times unit/mL injection daily with meals. Inject PENIndications: Coronary 8 units under the skin artery disease involving three times daily with [place] coronary artery of meals. Plus 0-14 units [place] heart with on sliding scale. unstable angina pectoris (HCC) insulin detemir(+) Inject 26 Units under the 10 mL 12 12/08/2017 (LEVEMIR) 100 unit/mL skin at bedtime daily. solnIndications: Coronary artery disease involving [place] coronary artery of [place] heart with unstable angina pectoris (HCC) lisinopril [...] with food. tabletIndications: Coronary artery disease involving [place] coronary artery of [place] heart with unstable angina pectoris (HCC) traMADol (ULTRAM) 50 mg Take 50 mg by mouth every tablet 6 hours as needed for Pain. amLODIPine (NORVASC) 10 Take 10 mg by mouth 12/08/2017 mg tablet daily. insulin aspart U-100 Inject 10 Units under the 45 mL 3 11/25/2017 (NOVOLOG FLEXPEN) 100 skin three times daily unit/mL injection with meals. PENIndications: Coronary artery disease involving [place] coronary artery of [place] heart with unstable angina pectoris (HCC) insulin aspart U-100 Inject 0-14 Units under 45 mL 3 11/25/2017 (NOVOLOG FLEXPEN) 100 the skin three times unit/mL injection daily with meals. PENIndications: Coronary artery disease involving [place] coronary artery of [place] heart with unstable angina pectoris (HCC) insulin detemir(+) Inject 35 Units under the 10 mL 12 11/25/2017 (LEVEMIR) 100 unit/mL skin at bedtime daily. solnIndications: Coronary artery disease involving [place] coronary artery of [place] heart with unstable angina pectoris (HCC) isosorbide mononitrate SR Take 30 mg by mouth every 12/08/2017 (IMDUR) 30 mg tablet morning. lisinopril (PRINIVIL; Take 20 mg by mouth 12/08/2017 ZESTRIL) 20 mg tablet daily. metoprolol XL (TOPROL XL) Take 100 mg by mouth 12/08/2017 100 mg extended release daily. tablet as of this encounter Progress Notes * Maryjane Whitehead RN - 11/25/2017 8:23 AM CDT 0815 - Reviewed discharge instructions, prescriptions/medications, follow-up appt with pt and pt's . Pt states verbal understanding - no questions. IV's and Tele dc'd. Prescriptions to pt's home pharmacy for filling. When ready, pt taken to the front door by hospital staff. * Mary Schwab, PORTIA - 11/25/2017 4:53 AM CDT Pt arrived back to floor from teeth extraction at 1930. Pt lethargic but oriented. VSS, afebrile, 96% on RA. SR c BBB on telemetry, rates in 70s-90s. Lung sounds clear over diminished. Pt reported constant incisional gum pain, rated 8/10; morphine given x2 per Dr. Phelps; pt refusing pills overnight and pt and fiance very distressed regarding pt's pain control. Pt tolerating sips of clears. Incisional drainage has decreased throughout the night; at 0300 assessment, no new drainage noted. No N/V reported. Adequate UOP. Last BM 11/24. Fall bundle in place. Call light within reach. Pt has no complaints at this time , will continue to monitor. * Dena Gayle DDS - 11/24/2017 5:26 PM CDT Pre Procedure Note Pt presents to OR for extraction of all infected remaining teeth in preparation for cardiac procedure. All indications and contraindications were reviewed with pt. Consent obtained and signed. H&P recently updated. Dena Gayle DDS, PhD Pager [phone] * Jennifer Elkins, PORTIA - 11/24/2017 12:04 PM CDT S/P Cardiac cath yesterday revealed severe multi-vessel coronary artery disease CTS consulted an CABG planned but dental issues need to be addressed first Plan: teeth extraction this afternoon Monitor overnight and plan discharge home early tomorrow am Time for CABG to be discussed with CTS team. Does not meet [facility] criteria for Inpatient Admission Referred for secondary review. * Italo Russo PA-C - 11/24/2017 11:54 AM CDT CTS update: 62 y/o F with insulin dependent DM, HTN, and known CAD s/p several PCIs - CTS planning CABG. Dental service planning extraction of multiple teeth today. Will reschedule CABG for 12/02/17 to avoid unnecessary blood loss with heparinization. Echo 10/24/17: Moderately depressed left ventricular systolic function. LVEF 40-45%. Grade I diastolic dysfunction There is anterior apical, apical and apical lateral wall dyskinesis/aneurysm. Mild concentric left ventricular hypertrophy. Mild left atrial enlargement. No significant valvular abnormalities. No pericardial effusion. Plan: Continue management per primary team. Dental extractions this evening. Okay from surgery standpoint for patient to be discharged home when okay with primary team. Mrs. Jaramillo will have pre-op PAT clinic evaluation on 12/01/17 at 1:30pm with plan for surgery 12/02/17. Dr. Enrique's clinic will call and provide further information. Italo Russo PA-C [id number] Associated attestation - Kenny Enrique MD - 11/25/2017 7:41 AM CDT No recent echo results with dyskinesis of the apex. Will assess in the OR and possibly perform Eliezer procedure. Planning for dental extractions this evening and CABG middle of next week. Reji Enrique M.D. * Aneta Goodson - 11/24/2017 11:46 AM CDT Tele on, SR. VSS. AOx4, RA during the day and 1.5 L NC for comfort at night. UOP adequate/Last BM 11/24 R groin incision healing well, no hematoma Encouraging ambulation High fall risk in place, call light within reach, will cont. to monitor 1130 pt made to be a high fall risk due to pt stating she had a fall earlier this week and sometimes her right leg gives out on her, educated patient on purpose of high fall risk bundle and to call before attempting to get up out of bed or the chair, bed alarm on, pt was cooperative and denied questions or concerns. * Aneta Goodson - 11/24/2017 11:06 AM CDT Patient arrived to room HC416 via wheelchair accompanied by RN. Patient transferred to the chair without assistance. Bedside safety checks completed. Initial patient assessment completed, refer to flowsheet for details. Admission skin assessment completed by: Pressure Injury Present on Hospital Admission (within 24 hours): No 1. Occiput: No 2. Ear: No 3. Scapula: No 4. Spinous Process: No 5. Shoulder: No 6. Elbow: No 7. Iliac Crest: No 8. Sacrum/Coccyx: No 9. Ischial Tuberosity: No 10. Trochanter: No 11. Knee: No 12. Malleolus: No 13. Heel: No 14. Toes: No 15. Assessed for device associated injury Yes 16. Nursing Nutrition Assessment Completed Yes See Doc Flowsheet for additional wound details. INTERVENTIONS: * Deepti Warren RN - 11/24/2017 10:32 AM CDT 1030- Pt taken via wheelchair by staff member to 416. All belongings and fiance' accompanied transfer. * Deepti Warren RN - 11/24/2017 10:09 AM CDT [id number]: Phone report given to Caroline PEARCE regarding pt to transfer care to 416. * Corrie Fuentes PA-C - 11/24/2017 8:21 AM CDT Formatting of this note may be different from the original. Cardiology Daily Progress Note Nimisha Clint Admission Date: 11/23/2017 Assessment/Plan: Principal Problem: Coronary artery disease involving [place] coronary artery of [place] heart with unstable angina pectoris (HCC) Active Problems: Essential hypertension Mixed hyperlipidemia History of tobacco abuse Type 2 diabetes mellitus with complication, with long-term current use of insulin (HCC) Tooth decay CAD (coronary artery disease) 62 year old female with history of DM2, COPD, PAD, HLD, HTN, mild cardiomyopathy , CAD with prior stents to the LAD, RCA, Cx with PTCA of occluded LAD 02/2017. She has been having exertional chest discomfort and dyspnea and LHC repeated on 11/23/17, revealing severe multivessel CAD and CABG is planned. The patient has had significantly elevated blood sugars which have improved post extraction of 6 teeth on 11/11 but requires extraction of the remaining teeth, prior to CABG. CAD -LHC 11/23/17 revealed an occluded LAD with faint [...] dose Plavix 11/22/17. Platelet inhibition only 3%. Ischemic Cardiomyopathy -Echo 11/23/17 as noted-EF 40-45% -on Lisinopril, Toprol Diabetes Type 2 -Hgb AIC 10.4 on 11/23 -reportedly blood sugars have been running in 500s prior to teeth extraction on 11/11 and insulin adjusment->more recently, running in 200s but does also get some low readings on current regimen -FACE CLEANER on Levemir insulin 88 units BID (early am, HS) and Novolog 75 units TID with meals and Metformin 1000mg BID. Dental Caries -Panorex xray 11/23/17 revealed erosions or caries involving the remaining maxillary teeth, sparing the residual left maxillary molar. Thin rind of lucency surrounding the right mandibular canine tooth, likely due to periodontal disease/gingivitis. 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 Plan: -Teeth extraction this evening. Hopefully discharge in early am as will be done with procedure late -Add Spironolactone 12.5mg daily -Patient has not been getting scheduled doses of insulin and currently NPO. BS running 212-322. Will change low dose CF to medium dose CF and consult endocrinology. Patient discussed with Dr. Cortes Subjective: Patient and fiance quite upset about her being NPO for dental extraction as will need to be on clear liquids for next few days as well. She noted some dyspnea overnight but denies chest pain. Allergies: Fish containing products; Ketoprofen; and Mushroom Medications: Scheduled Meds: amLODIPine (NORVASC) tablet 10 mg 10 mg Oral QDAY aspirin EC tablet 81 mg 81 mg Oral QDAY aspirin tablet 325 mg 325 mg Oral ONCE atorvastatin (LIPITOR) tablet 40 mg 40 mg Oral QDAY insulin aspart U-100 (NOVOLOG FLEXPEN) injection PEN 0-7 Units 0-7 Units Subcutaneous ACHS insulin aspart U-100 (NOVOLOG FLEXPEN) injection PEN 60 Units 60 Units Subcutaneous TID w/ meals insulin glargine (LANTUS SOLOSTAR, BASAGLAR) injection PEN 80 Units 80 Units Subcutaneous BID isosorbide mononitrate SR (IMDUR) tablet 30 mg 30 mg Oral QAM8 lisinopril (PRINIVIL; ZESTRIL) tablet 20 mg 20 mg Oral QDAY metoprolol XL (TOPROL XL) tablet 100 mg 100 mg Oral QDAY Continuous Infusions: sodium chloride 0.9 % infusion Stopped (11/23/17 0933) PRN and Respiratory Meds:acetaminophen Q4H PRN, aluminum/magnesium hydroxide Q4H PRN, diphenhydrAMINE Q4H PRN OR diphenhydrAMINE Q4H PRN, docusate QDAY PRN, lidocaine PF PRN, nitroglycerin Q5 MIN PRN, temazepam QHS PRN Physical Exam: Vital Signs: Last Filed In 24 Hours Vital Signs: 24 Hour Range BP: 117/62 (11/24 753) Temp: 36.8 C (98.2 F) (11/24 753) Pulse: 79 (11/24 753) Respirations: 15 PER MINUTE (11/24 1999) SpO2: 99 % (11/24 753) O2 Delivery: None (Room Air) (11/24 753) SpO2 Pulse: 78 (11/23 1800) Height: 157.5 cm (5' 2") (11/23 1401) BP: (109-152)/(58-81) Temp: [36.6 C (97.8 F)-36.8 C (98.2 F)] Pulse: [71-86] Respirations: [12 PER MINUTE-22 PER MINUTE] SpO2: [95 %-99 %] O2 Delivery: None (Room Air) Intake/Output Summary: (Last 24 hours) Intake/Output Summary (Last 24 hours) at 11/24/17 0821 Last data filed at 11/24/17 0750 Gross per 24 hour Intake 841.5 ml Output 0 ml Net 841.5 ml Vitals: 11/23/17 0840 Weight: 71.8 kg (158 lb 4.6 oz) Physical Exam General Appearance: well developed, well nourished, appears stated age, no acute distress Neck Veins: neck veins are not distended Auscultation/Percussion: lungs clear to auscultation, no rales or rhonchi, no wheezing Cardiac Auscultation: S1, S2 normal, no rub, no gallop, murmurs Pedal Pulses: normal symmetric pedal pulses Lower Extremity : no lower extremity edema Abdominal Exam: soft, non-tender, non-distended, normal bowel sounds. No abdominal bruits Neurologic Exam: neurological assessment grossly intact Laboratory Review: Hematology: Lab Results Component Value Date HGB 12.7 11/24/2017 HCT 36.3 11/24/2017 PLTCT 143 11/24/2017 WBC 6.0 11/24/2017 MCV 86.8 11/24/2017 MCHC 35.0 11/24/2017 MPV 9.7 11/24/2017 RDW 13.4 11/24/2017 , Coagulation: Lab Results Component Value Date PTT 25.0 11/23/2017 INR 1.0 11/23/2017 , General Chemistry: Lab Results Component Value Date NA 136 11/24/2017 K 3.8 11/24/2017 CL 105 11/24/2017 GAP 9 11/24/2017 BUN 17 11/24/2017 CR 0.61 11/24/2017 GLU 254 11/24/2017 CA 9.4 11/24/2017 MG 1.8 11/24/2017 and Mg and PO4: Lab Results Component Value Date MG 1.8 11/24/2017 Echocardiogram 11/23/17: Moderately depressed left ventricular systolic function. LVEF 40-45% There is anterior apical, apical and apical lateral wall dyskinesis/aneurysm. Mild concentric left ventricular hypertrophy. Mild left atrial enlargement. No significant valvular abnormalities. No pericardial effusion. Chest X-Ray 11/23/17: no acute process Corrie Fuentes PA-C ([id number]) * Rosa Ogden, RN - 11/23/2017 2:58 PM CDT Pt off floor for testing from [phone] * Italo Russo PA-C - 11/23/2017 11:58 AM CDT Formatting of this note may be different from the original. CTS CONSULT Date of Service: 11/23/2017 Requesting Physician: Dr. Cortes Consulting Physician: Dr. Enrique Consult Performed By: Dakota Russo PA-C HPI: Mrs. 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 Dr. Cortes consulted CTS for evaluation for surgical revascularization after [facility] today revealed severe, multivessel CAD in [...] Reoperation: 3.351% CATH FINDINGS: Coronary Stenosis LAD--> MANAGER OF PHOTOGRAPHY Diag--> 80% proximal OM --> 70% ostial, 90% mid RCA--> 95% distal PMH: Past Medical History: Diagnosis Date Bilateral carotid artery disease ([facility]) 11/17/2017 05/04/17 - Carotid U/S: mild 1-39% stenosis, nonobstructive disease bilaterally. Coronary artery disease involving [place] coronary artery of [place] heart with unstable angina pectoris ([facility]) 11/17/2017 03/04/17 - [facility]: Total occlusion of the mid LAD, [...] Mixed hyperlipidemia 11/17/2017 PAD (peripheral artery disease) ([facility]) 11/17/2017 Type 2 diabetes mellitus with complication, with long-term current use of insulin ([facility]) 11/17/2017 PSH: Past Surgical History: Procedure Laterality [...] Hospital Problems Diagnosis Coronary artery disease involving [place] coronary artery of [place] heart with unstable angina pectoris (HCC) 03/05/17 - [facility]: Total occlusion of the mid LAD, balloon angioplasty using 2 different sized balloons. No reestablishment of flow. Appears the artery is diffusely diseased & occluded. Proximal portion has severe disease - balloon angioplasty with slight improvement. Severe disease at mid and distal circumflex - fairly small artery. Patent stent in large dominant RCA. Normal LV , EF 60%, normal LVEDP. 06/16/16 - [facility]: Severe in-stent restenosis in prox and [...] circumflex, fairly small artery. Normal LVEDP. 06/2015 [facility]: 2.5 x 18 mm Resolute Integrity stent to mid circumflex, prox lesion is 40% stenosed, distal lesion 80%. Patent multiple stents in prox, mid, and distal LAD w/ mild in-stent restenosis. Patent stent in RCA w/ mild disease in distal RCA. 05/2015 [facility]: 3.5 x 12 mm & 2.75 x 24 mm Promus Premier overlapping stents to mid RCA. Patent stents in the LAD. Severe stenosis at distal LAD, 70% prox circumflex and 70-80% mid to distal circ/OM branch. [facility]: 2.5 x 24 mm and 2.5 x 20 mm Promusto distal and proximal LAD, 50% prox circumflex, 70-80% mid to distal circumflex involving the proximal portion of OM1, 50-60% mid RCA, LV anterior wall hypokinetic. EF 40%. Essential hypertension Mixed hyperlipidemia History of tobacco abuse Type 2 diabetes mellitus with complication, with long-term current use of insulin ([facility]) Plan: Dr. Enrique has reviewed all of the patient's preop testing. He agrees that surgical intervention is the most appropriate course of action. The entire procedure, risks, benefits, alternatives, and complications have been discussed. Potential risks include but are not limited to infection, arrhythmias , bleeding requiring re-operation, prolonged intubation, ARF requiring hemodialysis, CVA, NH, and possibly even . The patient understands, [...] will receive a phone call from Dr. Enrique's clinic with further instructions on timing of arrival for Thursday. Italo Russo PA-C [id number] Associated attestation - Kenny Enrique MD - 11/25/2017 7:40 AM CDT I appreciate the consult. I met and [...] the care of this nice lady. Reji Enrique M.D. * Rosa Ogden, PORTIA - 11/23/2017 8:31 AM CDT Patient arrived on unit via ambulation accompanied by family. Patient transferred to the bed without assistance. Frailty score equals 3 Assessment completed, refer to flowsheet for details. Orders released, reviewed, and implemented as appropriate. Oriented to surroundings, call light within reach. Plan of care reviewed. Will continue to monitor and assess. in this encounter H&P Notes * Corrie Fuentes PA-C - 11/23/2017 8:59 AM CDT Formatting of this note may be different from the original. Patient presents for procedure. Please see History and Physical copied below from date of service 11/23/2017. ALENA Richards ([id number]) Progress Notes Arnulfo Cortes MD (Physician) Cardiology 11/23/17 0715 Signed Date of Service: 11/23/2017 Nimisha Jaramillo is a 62 y.o. female. CHASE Bansal is a 62-year-old female with a history of coronary artery disease. Additionally, she has had poorly controlled diabetes however as of late, her diabetic management has improved and she states her blood sugars range in the mid 200s. She has a history of COPD and quit smoking last January. She is not oxygen dependent and does not consider her lung disease a significant issue. I did have a chance to review her recent cardiac catheterization and she does have notable diffuse coronary artery disease. She has multiple stents in the LAD, which is occluded, and has reconstituted to the apical segment. Additionally, there is an ostial circumflex stenosis as well as occluded posterior lateral vessel which is collateralized left to right. Her ejection fraction has declined and she describes exertional shortness of breath and exertional chest p pain. We discussed the plan to repeat her cardiac catheterization and consider revascularization. We discussed the risks and benefits today and will plan to proceed. Vitals: 11/23/17 0722 BP: 120/86 Pulse: 81 Weight: 72.5 kg (159 lb 12.8 oz) Height: 1.575 m (5' 2") Body mass index is 29.23 kg/m. Past Medical History Patient Active Problem List Diagnosis Date Noted Bilateral carotid artery disease ([facility]) 11/17/2017 05/04/17 - Carotid U/S: mild 1-39% stenosis, nonobstructive disease bilaterally. Coronary artery disease involving [place] coronary artery of [place] heart with unstable angina pectoris ([facility]) 11/17/2017 03/05/17 - [facility]: Total occlusion of the mid LAD, balloon angioplasty using 2 different sized balloons. No reestablishment of flow. Appears the artery is diffusely diseased & occluded. Proximal portion has severe disease - balloon angioplasty with slight improvement. Severe disease at mid and distal circumflex - fairly small artery. Patent stent in large dominant RCA. Normal LV , EF 60%, normal LVEDP. 06/16/16 - [facility]: Severe in-stent restenosis in prox and [...] circumflex, fairly small artery. Normal LVEDP. 06/2015 - [facility]: 2.5 x 18 mm Resolute Integrity stent to mid circumflex, prox lesion is 40% stenosed, distal lesion 80%. Patent multiple stents in prox, mid, and distal LAD w/ mild in-stent restenosis. Patent stent in RCA w/ mild disease in distal RCA. 05/2015 [facility]: 3.5 x 12 mm & 2.75 x 24 mm Promus Premier overlapping stents to mid RCA. Patent stents in the LAD. Severe stenosis at distal LAD, 70% prox circumflex and 70-80% mid to distal circ/OM branch. [facility]: 2.5 x 24 mm and 2.5 x 20 mm Promusto distal and proximal LAD, 50% prox circumflex, 70-80% mid to distal circumflex involving the proximal portion of OM1, 50-60% mid RCA, LV anterior wall hypokinetic. EF 40%. PAD (peripheral artery disease) ([facility]) 11/17/2017 Essential hypertension 11/17/2017 Mixed hyperlipidemia 11/17/2017 History of tobacco abuse 11/17/2017 Type 2 diabetes mellitus with complication, with long-term current use of insulin ([facility]) 11/17/2017 Past Surgical History: Procedure Laterality Date CARPAL TUNNEL RELEASE CHOLECYSTECTOMY KNEE ARTHROSCOPY LEEP PROCEDURE cervix TUBAL LIGATION Social History Social History Marital status: Spouse name: N/A Number of children: N/A Years of education: N/A Occupational History Not on file. Social History Main Topics Smoking status: Former Smoker Quit date: 01/23/2017 Smokeless tobacco: Never Used Alcohol use No Drug use: Yes Types: Marijuana Comment: rarely Sexual activity: Not on file Other Topics Concern Not on file Social History Narrative No narrative on file Family History Problem Relation Age of Onset Hypertension Mother Heart Disease Mother Kidney Cancer Mother Heart Disease Father Review of Systems Constitution: Positive for malaise/fatigue. HENT: Negative. Eyes: Positive for blurred vision and pain. Cardiovascular: Positive for chest pain, claudication and dyspnea on exertion. Respiratory: Positive for cough and shortness of breath. Endocrine: Negative. Hematologic/Lymphatic: Negative. Skin: Negative. Musculoskeletal: Positive for back pain, falls and neck pain. Gastrointestinal: Positive for diarrhea and heartburn. Genitourinary: Negative. Neurological: Positive for excessive daytime sleepiness, headaches and light- headedness. Psychiatric/Behavioral: Negative. Allergic/Immunologic: Negative. Physical Exam Physical Exam General Appearance: alert and oriented, no acute distress Skin: warm, moist, no ulcers Head: normocephalic, symmetric Eyes: EOMI, PERRL, sclera are clear and without icterus ENT: unremarkable, nares patent Neck Veins: neck veins are flat, neck veins are not distended Carotid Arteries: normal carotid upstroke bilaterally, no bruits Chest Inspection: chest is normal in appearance Auscultation/Percussion: lungs clear to auscultation, no rales, rhonchi, wheezes or friction rub appreciated Cardiac Rhythm: regular rhythm and normal rate Cardiac Auscultation: Normal S1 & S2, no S3 or S4, no rub - normal pmi Murmurs: no cardiac murmurs Extremities: no lower extremity edema bilaterally; 2+ symmetric distal pulses Muskuloskeletal: no obvious deformity Abdominal Exam: soft, non-tender, no masses, bowel sounds normal Neurologic Exam: neurological assessment grossly intact Mood and Affect: Appropriate Cardiovascular Studies ECG - NSR, RBBB, inferior Q waves Problems Addressed Today Encounter Diagnoses Name Primary? Coronary artery disease involving [place] coronary artery of [place] heart with unstable angina pectoris (HCC) Yes Type 2 diabetes mellitus with complication, with long-term current use of insulin (HCC) Assessment and Plan Coronary artery disease -reviewing her recent cardiac catheterization, she has a chronic total occlusion of both the LAD and the posterior lateral vessel. The circumflex ostium has a high-grade lesion as well. We will plan to repeat her cardiac cath with a consideration to percutaneously revascularize. We may need to consider surgical revascularization as well given her concurrent diabetes. She is currently on aspirin and Plavix and takes atorvastatin for lipid management. Her diabetic control is improving and she has poor dentition which is required multiple teeth to be extracted. I appreciate being involved in her care and will keep you informed as the results of her upcoming plan. Current Medications (including today's revisions) amLODIPine (NORVASC) 10 mg tablet Take 10 [...] SC) Inject 60 Units under the skin at bedtime daily. [...] Pain. Max of 3 tablets, call 911. in this encounter Procedure Notes * Arnulfo Cortes MD - 11/23/2017 11:10 AM CDT Associated Order(s): CARDIAC CATH REPORT [facility] CARDIAC CATHETERIZATION REPORT Page 2 NIMISHA Condon : 1955 KU#: [id number] MR #/Billing ID #: [id number] / [id number] DATE: 11/23/2017 SENIOR INTEGRATION ARCHITECT: Arnulfo Cortes MD DICTATING PROVIDER: Arnulfo Cortes MD REFERRING PHYSICIAN: ASHLEY BANEGAS PROCEDURES PERFORMED: 1. Left heart catheterization. 2. Selective left and right coronary cineangiograms. PROCEDURE: Ms. Jaramillo is a 62-year-old female who presented with a history of coronary artery disease and recent cardiac catheterization suggesting chronic total occlusion of the mid LAD. On arrival to prosthetic lab technician, she was hemodynamically stable and pain free. Moderate IV conscious sedation was monitored and administered by myself, nursing, and technical staff for a total duration of 30 minutes. The bilateral groins were then prepped and draped in typical fashion. We infiltrated the right groin with approximately 20 mL of 1% lidocaine and advanced a 5-[place] arterial sheath. Selective left and right coronary cineangiograms as well as left heart catheterization were performed utilizing a 5-[place] diagnostic coronary catheter. Intracoronary nitroglycerin was administered [...] There was some faint left-to- left and [id number] collateralization of the apical segment of the [...] second obtuse marginal branch. There was some lror-gb-benjw collateralization of the posterolateral segment. 5. The [place] right coronary was visualized with a JR4 [...] mid left anterior descending artery with faint yvab-pr-rlya collaterals. b. 90% mid second obtuse marginal stenosis with a 70% ostial circumflex stenosis. c. 95% proximal posterior lateral stenosis. PLAN: We will consult Cardiothoracic Surgery for evaluation. MD MG Toth/Hakeem /[id number] cc: - ASHLEY BANEGAS in this encounter Consult Notes * Dena Gayle DDS - 11/24/2017 5:25 PM CDT Associated Order(s): CONSULT DENTAL Dental Consult Reason for Consult having coronary bypass surgery on Monday 11/27. Had 6 teeth pulled 5/2 for infection, needs more pulled-elevating blood sugars HPI Nimisha is a 62-year-old female with a history of coronary artery disease. Additionally, she has had poorly controlled diabetes however as of late, her diabetic management has improved and she states her blood sugars range in the mid 200s. She has a history of COPD and quit smoking last January. She is not oxygen dependent and does not consider her lung disease a significant issue. I did have a chance to review her recent cardiac catheterization and she does have notable diffuse coronary artery disease. She has multiple stents in the LAD, which is occluded, and has reconstituted to the apical segment. Additionally, there is an ostial circumflex stenosis as well as occluded posterior lateral vessel which is collateralized left to right. Her ejection fraction has declined and she describes exertional shortness of breath and exertional chest p pain. We discussed the plan to repeat her cardiac catheterization and consider revascularization. We discussed the risks and benefits today and will plan to proceed Findings Consulted Ms. Jaramillo this afternoon, after having several phone conversations with med-team about extracting all infected teeth remaining in her mouth. Pt was alert and cooperating. She reported having some teeth removed recently and wanting all her teeth extracted. Teeth are in very poor condition, severe decay and multiple fractures. Panoramic x-ray corroborated clinical findings Recommendations Extraction of all remaining teeth in OR procedure will be performed today. I personally performed this consult Dena Gayle DDS, PHD Pager [phone] * Jennifer Oshea RN - 11/24/2017 1:44 PM CDT Associated Order(s): CONSULT DIABETES NURSE EDUCATOR Formatting of this note may be different from the original. INPATIENT DIABETES EDUCATION TEAM [facility] Reason for Consult: Other (Comment) Order comments: Poorly managed diabetes at home. Changing regimen Discussed Consult with Primary Team: Dr. Gutierrez, Adobe Layer Helper, Aneta, bedside RN Patient may benefit from: referral to [facility] for Diabetes Education, Automotive Electrical Fitter to cover carb controlled/heart healthy diet, and after planned CABG referral to cardiac rehab. This consult team does not write orders. Primary Team is responsible for placing orders. Supplies/Resources provided: Daily Insulin schedule Handling and Storage of Insulin How to Inject Insulin with a Syringe Insulin Pen Use Introduction to Carbohydrate Counting Simple Carbohydrate Counting Healthy Meal Planning: Plate Model How to Build a Balanced Easy Meal Met with Nimisha Jaramillo to discuss diabetes management. Pt agreeable to teaching at this time. SO, Ritesh at bedside. Educator explained to pt that the Adobe Layer Helper who visited with pt earlier was changing pt's insulin dosing schedule to see if FACE CLEANER insulin was really what was needed. Her insulin dosing was going to be changed and pt was asked to keep detailed records of BG checks, amount and type of insulin given, and mealtime intake to help evaluate the situation. Pt's SO said they would abide by the request. Discussed importance of taking insulin at beginning of meals rather than after meals as pt reports she was doing prior to admission. Pre-meal and fasting BG goals of between 80-140 were discussed. Educator recommended that if pt had BG of less than 100 prior to bedtime that she should have a small snack to prevent hypoglycemia overnight. Explained the proposed schedule per Dr. Gutierrez explaining that the fixed amount on the schedule below (10 units with meals was for educational purposes and that final recommendations would be communicated prior to discharge.) Talked about how to use the sliding scale, reviewing a few different examples. Pt verbalized understanding. Pt demonstrated to educator, the proper use of insulin pens, including removing both caps from needles pt would be using at home, and priming the pen with 2 units each a new dose is given. Discussed proper storage of insulin to which pt verbalized that she stores unused pens in the refrigerator, and carries 2 pens with her in her purse being careful not to expose them to extreme temperatures. Signs and symptoms of hypoglycemia and hyperglycemia were discussed with pt and appropriate treatment for hypoglycemia using the rule of 15 was discussed. Pt reports that previously if she felt her BG was low she would take a spoonful of peanut butter. Educator explained that it was beneficial to use quick acting carbs such as juice, or glucose tabs, or hard candies initially until BG was above 70 and then a spoonful of peanut butter would be OK. When asked what questions the pt had, SO asked for more information about carb counting. SO reports that he had been visiting the ADA website for information but was interested in more help in this area since he is the one preparing meals. Educator provided the above handouts related to carb counting and meal planning and reviewed them with pt and SO. Educator also told them of online resources such as restaurant chain web-sites that would have nutritional information. Discussion also covered the importance of trying to eat 3 well balanced meals with between 45-60g of carbs per meal spaced about 4-5 hours apart. Benefits of whole grains, higher fiber options, and portion sizes was also covered. Will attempt to provided discharge recommendations for insulin dosing prior to discharge. Pt reports she takes Levemir at home not Lantus. Daily schedule Taking insulin and monitoring your blood sugar Morning: Take your blood sugar & write down the results Take mealtime insulin of NOVOLOG PER scale below. Eat breakfast within 15 minutes Lunch: Take your blood sugar & write down the results Take mealtime insulin of NOVOLOG PER scale below. Supper/Dinner: Take your blood sugar & write down the results Take mealtime insulin of NOVOLOG PER scale below. Eat supper within 15 minutes Novolog is in the [place]. If your pre meal Blood sugar is: Give this # of units of Novolog Greater than 70, Less than 140 0 + 10=10 140 to 180 2+ 10=12 181 to 220 4+ 10=14 221 to 260 6+ 10=16 261 to 300 8+ 10=18 301 to 350 10+ 10=20 351 to 400 12+ 10=22 400 or higher 14+ 10=24 Bedtime: Take your blood sugar & write down the results Take 35 units of Lantus Call your doctor if blood sugar is below 70 after 2 treatments or above 250 twice in 1 day Thank you for the consult, please feel free to contact me at the numbers below with any additional questions or concerns related to diabetes education. MAKENNA Bernardo, RN Clinical Nurse Coordinator - Diabetes Education Nursing Clinical Excellence [facility] [email or web address] [phone] office [phone] pager * Terrance Mack MD - 11/24/2017 11:12 AM CDT Associated Order(s): CONSULT ENDOCRINOLOGY PHYSICIAN Formatting of this note may be different from the original. 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 regimen: Levemir 88 units BID, Novolog 75 units after lunch and dinner, metformin 1000 mg BID Hypoglycemic episodes on this regimen: 2x/week after breakfast Follows up with for diabetes management: PCP at [place], [place] Diabetic-complications assessment: Retinopathy: Yes Peripheral neuropathy: Yes Autonomic neuropathy: no Nephropathy: Not known Macrovascular complications: CAD Risk factor assessment: Last lipid profile - On ACEi/ARB?:yes On Statin?: yes Coronary artery disease: Status post PCI Left heart cath today showed severe multivessel disease, plan for CABG Hypertension Hyperlipidemia COPD Recommendations: Patient has poorly controlled type 2 diabetes. She is on very high insulin doses, which are much higher than what we would expect in a patient of her body weight. Also she was taking diabetes medications not in the right way. Based on our estimate, we will start her on Lantus 35 units daily, first dose now. Patient is being kept n.p.o. for teeth extraction this evening. We are not sure how much patient will be able to tolerate orally after multiple teeth extractions, so will not order any mealtime scheduled NovoLog. However we anticipate that she will require between 10-15 units with meals. Mid dose correction factor before meals and bedtime. We will request tobacco educator to come and talk to patient about basics of diabetes including role of basal, bolus insulin, correction factor and to check if patient is using the right technique for insulin administration. We will hold metformin now as patient is not eating and will probably hold it at discharge as we are not sure how much she will take an orally after extractions. Thanks for the consult, we will continue to follow. Patient was seen and discussed with . ATTESTATION I personally performed the zamudio portions of the E/M visit, discussed case with Dr. Gutierrez and concur with her documentation of history, physical exam, assessment, and treatment plan unless otherwise noted. Staff name: Terrance Mack MD Date: 11/24/2017 History of Present Illness Nimisha Jaramillo is a 62 y.o. female with past medical history of type 2 diabetes, coronary artery disease status post PCI, COPD, hypertension, hypertriglyceridemia was admitted initially for left heart catheterization which showed severe multivessel disease. She is getting workup for CABG in near future. Endocrinology was consulted for help with diabetes management. Patient says she was diagnosed with diabetes in 1998 by primary care physician. She follows with primary care physician for diabetes and a diabetes nurse in primary care physician office. She has been on insulin since year 1999. Prior to admission she was taking Levemir 88 units twice a day, NovoLog 75 units with meals. Patient says when she wakes up in the morning she checks her sugar and it is generally in 200s-300s and she takes 88 units of Levemir. She does not take NovoLog with breakfast because if she would take NovoLog along with Levemir her blood glucose drops after breakfast. She checks glucose before lunch and it is generally around 190 to low 200s. She eats lunch does not take NovoLog before lunch, checks glucose 1 hour after lunch and if it is not too low she takes 75 units of NovoLog no matter if her glucose is in the 100s or 200s or higher. Then she checks her glucose before dinner and it generally runs in 200s or 300s before dinner. She eats dinner, does not take NovoLog before dinner, checks glucose 1 hour after dinner and she takes NovoLog 75 units at that time. She eats bedtime snack few times a week, which is generally chocolate chip cookies. Appetite has been poor and she has nausea and vomiting. She takes metformin 1000 mg before breakfast in the morning and 1000 mg at bedtime. She has nausea vomiting, poor appetite, diarrhea at home. She has low blood glucose a couple times a week, generally between breakfast and lunch. Very rare overnight hypoglycemia. Her diabetes is complicated with retinopathy and neuropathy. She does not know if she has nephropathy. No history of stroke or mini stroke. Estimated Creatinine Clearance: 77.4 mL/min (based on SCr of 0.61 mg/dL). Past Medical History Past Medical History: Diagnosis Date Bilateral carotid artery disease (HCC) 11/17/2017 05/04/17 - Carotid U/S: mild 1-39% stenosis, nonobstructive disease bilaterally. Coronary artery disease involving [place] coronary artery of [place] heart with unstable angina pectoris ([facility]) 11/17/2017 03/04/[address] - [facility]: Total occlusion of the mid LAD, [...] Mixed hyperlipidemia 11/17/2017 PAD (peripheral artery disease) ([facility]) 11/17/2017 Type 2 diabetes mellitus with complication, with long-term current use of insulin ([facility]) 11/17/2017 Past Surgical History Past Surgical History: Procedure Laterality Date CARPAL TUNNEL RELEASE CHOLECYSTECTOMY KNEE ARTHROSCOPY LEEP PROCEDURE cervix TUBAL LIGATION Social History Social History Substance Use Topics Smoking status: Former Smoker Quit date: 01/23/2017 Smokeless tobacco: Never Used Alcohol use No Family History Family History Problem Relation Age of Onset Hypertension Mother Heart Disease Mother Kidney Cancer Mother Heart Disease Father Allergies Allergies Allergen Reactions Fish Containing Products UNKNOWN Ketoprofen UNKNOWN Mushroom UNKNOWN Review of Systems A comprehensive 14-point review of systems was negative except above Medications Scheduled Meds: amLODIPine (NORVASC) tablet 10 mg 10 mg Oral QDAY aspirin EC tablet 81 mg 81 mg Oral QDAY atorvastatin (LIPITOR) tablet 40 mg 40 mg Oral QDAY insulin aspart U-100 (NOVOLOG FLEXPEN) injection PEN 0-14 Units 0-14 Units Subcutaneous ACHS isosorbide mononitrate SR (IMDUR) tablet 30 mg 30 mg Oral QAM8 lisinopril (PRINIVIL; ZESTRIL) tablet 20 mg 20 mg Oral QDAY metoprolol XL (TOPROL XL) tablet 100 mg 100 mg Oral QDAY spironolactone (ALDACTONE) tablet 12.5 mg 12.5 mg Oral QDAY Continuous Infusions: PRN and Respiratory Meds:acetaminophen Q4H PRN, aluminum/magnesium hydroxide Q4H PRN, diphenhydrAMINE Q4H PRN OR diphenhydrAMINE Q4H PRN, docusate QDAY PRN, lidocaine PF PRN, nitroglycerin Q5 MIN PRN, temazepam QHS PRN Physical Examination Vital Signs: Last Vital Signs: 24 Hour Range BP: 117/62 (11/24 0754) Temp: 36.8 C (98.2 F) (11/24 0754) Pulse: 82 (11/24 1000) Respirations: 15 PER MINUTE (11/23 2000) SpO2: 99 % (11/24 0754) O2 Delivery: None (Room Air) (11/24 075) SpO2 Pulse: 78 (11/23 1800) Height: 157.5 cm (62") (11/23 1401) BP: (109-152)/(58-81) Temp: [36.6 C (97.8 F)-36.8 C (98.2 F)] Pulse: [71-86] Respirations: [12 PER MINUTE-22 PER MINUTE] SpO2: [96 %-99 %] O2 Delivery: None (Room Air) General appearance: alert, oriented, NAD HENT: mucus membranes moist, Eyes: EOM grossly intact, Neck: supple, Lungs: no wheezing, rhonchi, rales appreciated Heart: Regular rhythm, reg rate, Abdomen: soft, non-tender, non-distended, normoactive bowel sounds, Ext: No clubbing, cyanosis or edema Skin: no rashes/lesions GEOTHERMAL FIELD TECHNICIAN: Grossly nonfocal Lab Review Point of Care Testing (Last 24 hours) Glucose: (!) 254 (11/24/17 041) POC Glucose (Download): (!) 333 (11/24/17 1041) Recent Labs 11/23/17 11311/24/17415 NA -- 136* K -- 3.8 CL -- 105 CO2 -- 22 GAP -- 9 BUN -- 17 CR -- 0.61 GLU -- 254* CA -- 9.4 MG -- 1.8 HGBA1C 10.4* -- Recent Labs 11/23/17 11311/24/17 0416 WBC -- 6.0 HGB -- 12.7 HCT -- 36.3 PLTCT -- 143* INR 1.0 -- PTT 25.0 -- Estimated Creatinine Clearance: 77.4 mL/min (based on SCr of 0.61 mg/dL). Vitals: 11/23/17 0840 Weight: 71.8 kg (158 lb 4.6 oz) Thyroid Studies No results found for: TSH, FREET4, FREEINDEX No results found for: FREET3, C2RKDIFMW, THYBINDGLB Eugenia Gutierrez MD Endocrinology Fellow PGY-5 in this encounter Miscellaneous Notes * Care Plan - Mary Schwab RN - 11/24/2017 11:59 PM CDT Problem: Falls, High Risk of Goal: Absence of falls-Adult Patient Outcome: Goal Ongoing High falls bundle in place. Bed alarm activated, bed in lowest position, call light within reach. TABS alarm in chair. Patient encouraged to call with any needs. Goal: Absence of Falls-Pediatric patient Outcome: Goal Achieved Date Met: 11/24/17 Pt is not pediatric Problem: Discharge Planning Goal: Participation in plan of care Outcome: Goal Ongoing Patient participates in plan of care Goal: Knowledge regarding plan of care Outcome: Goal Ongoing Teaching provided on plan of care, patient verbalized understanding Goal: Prepared for discharge Outcome: Goal Ongoing Discharge planning ongoing Problem: Pain Goal: Management of pain Outcome: Goal Ongoing Discussed pain goal with patient.Assessed pain q4 hours and prn. Assessed for pain characteristics including location and intensity. Will continue to monitor. * Operative Report (Direct Entry) - Dena Gayle DDS - 11/24/2017 6:26 PM CDT Formatting of this note may be different from the original. OPERATIVE REPORT Name: Nimisha Jaramillo is a 62 y.o. female : 1955 DATE OF OPERATION: 11/24/2017 Surgeon(s) and Role: * Dena Gayle DDS - Primary Preoperative Diagnosis: Tooth decay [K02.9] Post-op Diagnosis * Tooth decay [K02.9] Procedure(s) (LRB): EXTRACTION TEETH #6, 7, 8, 9, 10, 11, 14, 22-27 (Bilateral) Anesthesia Type: Defer to Anesthesia Description and Findings of Operative Procedure: Pt presents to OR for extraction of all remaining teeth. They are source of infection, in preparation for heart procedure. All indications and contraindications were reviewed with pt. Consent obtained and signed. Defer to anesthesia for report. Pr was draped in the usual manner. Time out was taken at this point. Local anesthesia administered for a total of 2.8ml of 4% prilocaine plain. Teeth #6, 7, 8, 9, 10 , 11, 14, 22-27 were elevated and extracted with forceps without complications. Sockets rinsed with normal saline. And 3.0 chromic gut sutures placed intermittently. Bleeding was well controlled. Teeth were sent for disposal only. Pt was turned back to anesthesia. Counts corrected and verified. Estimated Blood Loss: No blood loss documented. Specimen(s) Removed/Disposition: ID Type Source Tests Collected by Time Destination 1 : EXTRACTION TEETH #6, 7, 8, 9, 10, 11, 14, 22-27 Tissue Teeth/Tooth SURGICAL PATHOLOGY Dena Gayle DDS 11/24/2017 1806 Disposal only Attestation: I performed this procedure without the involvement of a resident. Dena Gayle DDS Pager [phone] * Care Plan - Aneta Goodson - 11/24/2017 3:28 PM CDT Problem: Falls, High Risk of Goal: Absence of falls-Adult Patient Outcome: Goal Ongoing High fall risk in place, pt has not had a fall * Patient Education - Sofiya Zhang RN - 11/20/2017 9:32 AM CDT Spoke with patient per phone regarding heart cath with Dr Cortes on 11/23. Cath to follow 0715 OV/MAC. Pre procedure instructions reviewed and all questions answered. in this encounter Plan of Treatment Name Priority Associated Diagnoses Date/Time UA REFLEX CULTURE LABEL Routine 11/23/2017 2:52 PM CDT Name Priority Associated Diagnoses Order Schedule SURGICAL PATHOLOGY Routine Tooth decay ONCE for 1 Occurrences starting 11/24/2017 as of this encounter Procedures Procedure Name Priority Date/Time Associated Diagnosis Comments TELEMETRY STRIPS-SCAN 11/26/2017 Results for this 5:28 [...] THERAPY TEAM STAT 11/23/2017 8:47 AM CDT in this encounter Results * TELEMETRY STRIPS-SCAN (11/26/2017 5:28 PM) Narrative Ordered by an unspecified provider. * ECG-SCAN (11/26/2017 5:27 PM) Narrative Ordered by an unspecified provider. * PROCEDURE RECORD-SCAN (11/26/2017 10:42 AM) Narrative Ordered by an unspecified provider. * POC GLUCOSE (11/25/2017 7:32 AM) Component Value Ref Range Glucose, POC 144 (H) 70 - 100 MG/DL Specimen Performing Laboratory [facility] [address] [place] [address] * BASIC METABOLIC PANEL (11/25/2017 4:07 AM) Component Value Ref Range Sodium 138 137 - 147 MMOL/L Potassium 3.7 3.5 - 5.1 MMOL/L Chloride 107 98 - 110 MMOL/L CO2 24 21 - 30 MMOL/L Anion Gap 7 3 - 12 Glucose 239 (H) 70 - 100 MG/DL Blood Urea Nitrogen 12 7 - 25 MG/DL Creatinine 0.63 0.4 - 1.00 MG/DL Calcium 9.0 8.5 - 10.6 MG/DL eGFR Non >60 [...] Pharmacist for questions. Specimen Performing Laboratory Blood [facility] [address] [place] [id number] * POC GLUCOSE (11/24/2017 9:33 PM) Component Value Ref Range Glucose, POC 131 (H) 70 - 100 MG/DL Specimen Performing Laboratory [facility] [address] [place] [address] * POC GLUCOSE (11/24/2017 6:36 PM) Component Value Ref Range Glucose, POC 97 70 - 100 MG/DL Specimen Performing Laboratory [facility] [address] [place] [address] * POC GLUCOSE (11/24/2017 5:23 PM) Component Value Ref Range Glucose, POC 105 (H) 70 - 100 MG/DL Specimen Performing Laboratory [facility] [address] [place] [address] * POC GLUCOSE (11/24/2017 5:10 PM) Component Value Ref Range Glucose, POC 119 (H) 70 - 100 MG/DL Specimen Performing Laboratory [facility] [address] [place] [address] * POC GLUCOSE (11/24/2017 12:19 PM) Component Value Ref Range Glucose, POC 318 (H) 70 - 100 MG/DL Specimen Performing Laboratory [facility] [address] [place] [address] * POC GLUCOSE (11/24/2017 10:41 AM) Component Value Ref Range Glucose, POC 333 (H) 70 - 100 MG/DL Specimen Performing Laboratory [facility] [address] [place] [address] * POC GLUCOSE (11/24/2017 7:57 AM) Component Value Ref Range Glucose, POC 222 (H) 70 - 100 MG/DL Specimen Performing Laboratory [facility] [address] [place] [address] * MAGNESIUM (11/24/2017 4:16 AM) Component Value Ref Range Magnesium 1.8 1.6 - 2.6 mg/dL Specimen Performing Laboratory Blood [facility] [address] [place] [address] * CBC (11/24/2017 4:16 AM) Component Value Ref Range White Blood Cells 6.0 4.5 - 11.0 K/UL RBC 4.18 4.0 - 5.0 M/UL Hemoglobin 12.7 12.0 - 15.0 GM/DL Hematocrit 36.3 36 - 45 % MCV 86.8 80 - 100 FL MCH 30.4 26 - 34 PG MCHC 35.0 32.0 - 36.0 G/DL RDW 13.4 11 - 15 % Platelet Count 143 (L) 150 - 400 K/UL MPV 9.7 7 - 11 FL Specimen Performing Laboratory Blood [facility] [address] [place] [address] * BASIC METABOLIC PANEL (11/24/2017 4:16 AM) Component Value Ref Range Sodium 136 (L) 137 - 147 MMOL/L Potassium 3.8 3.5 - 5.1 MMOL/L Chloride 105 98 - 110 MMOL/L CO2 22 21 - 30 MMOL/L Anion Gap 9 3 - 12 Glucose 254 (H) 70 - 100 MG/DL Blood Urea Nitrogen 17 7 - 25 MG/DL Creatinine 0.61 0.4 - 1.00 MG/DL Calcium 9.4 8.5 - 10.6 MG/DL eGFR Non >60 [...] Performing Laboratory Blood [facility] [address] [place] [address] * POC GLUCOSE (11/24/2017 1:17 AM) Component Value Ref Range Glucose, POC 212 (H) 70 - 100 MG/DL Specimen Performing Laboratory [facility] [address] [place] [address] * MRA HEAD WO CONTRAST (11/23/2017 9:39 [...] 62 years old, intracranial aneurysm. TECHNIQUE: 3D rhxm-il-bccmdkrolzmp of the [place] was performed without contrast. MRA [...] 62 years old, intracranial aneurysm. TECHNIQUE: 3D sbjc-gh-xxmbsv images of the [place] was performed without contrast. MRA [...] Wright M.D. on 11/24/2017 8:29 AM. * POC GLUCOSE (11/23/2017 8:23 PM) Component Value Ref Range Glucose, POC 290 (H) 70 - 100 MG/DL Specimen Performing Laboratory [facility] [address] [place] [address] * POC GLUCOSE (11/23/2017 5:09 PM) Component Value Ref Range Glucose, POC 322 (H) 70 - 100 MG/DL Specimen Performing Laboratory [facility] [address] [place] [address] * CULTURE-URINE W/SENSITIVITY (11/23/2017 2:52 PM) Component Value Ref Range Battery Name URINE CULTURE Specimen Description URINE Special Requests NONE Culture <10,000 organisms/ml MIXED CONTAMINANTS Report Status FINAL 11/24/2017 Specimen Performing Laboratory Urine [facility] [address] [place] [id number] * URINALYSIS MICROSCOPIC REFLEX TO CULTURE (11/23/2017 2:52 PM) Component Value Ref Range WBCs,UA PACKED 0 - 2 /HPF RBCs,UA 2-10 0 - 3 /HPF Comment,UA Urine submitted for reflex culture if criteria are met:WBC>10, positive nitrite and/or >=1+ leukocyte esterase. If quantity is not sufficient, an addendum will follow. MucousUA TRACE Squamous Epithelial Cells 2-5 0 - 5 Specimen Performing Laboratory Urine [facility] [address] [place] [address] * URINALYSIS DIPSTICK REFLEX TO CULTURE (11/23/2017 2:52 PM) Component Value Ref Range Color,UA YELLOW Turbidity,UA CLEAR CLEAR-CLEAR Specific [place]-Urine 1.050 (H) 1.003 - 1.035 pH,UA 5.0 5.0 - 8.0 Protein,UA NEG NEG-NEG Glucose,UA 3+ (A) NEG-NEG Ketones,UA NEG NEG-NEG Bilirubin,UA NEG NEG-NEG Blood,UA 1+ (A) NEG-NEG Urobilinogen,UA NORMAL NORM-NORMAL Nitrite,UA NEG NEG-NEG Leukocytes,UA 3+ (A) NEG-NEG Urine Ascorbic Acid, UA NEG NEG-NEG Specimen Performing Laboratory Urine [facility] [address] [place] [address] * PANOREX EXAM (11/23/2017 2:41 PM) Specimen [...] history: pre-op eval. Coronary artery disease involving [place] coronary artery of [place] heart with unstable angina pectoralis Comparison: None. . Findings: The heart size and pulmonary vascularity are within normal limits. The lungs are clear. No consolidation or pleural effusion is identified. Surgical clips overlie the right upper quadrant of the abdomen. . Procedure Note Interface, Radiant Results - 11/23/2017 2:49 PM CDT CHEST 2 VIEWS . Clinical history: pre-op eval. Coronary artery disease involving [place] coronary artery of [place] heart with unstable angina pectoralis Comparison: None. [...] 0.57 E/E' ratio 11.29 CV ECHO PV PEGA DEVELOPER Lionel STEVEN LV mass 203.43 66 - 150 g RWT 0.53 <=0.42 Cardiology Ultrasound Siemens [id number] Machine Left Ventricle Mass Index 114.93 44 [...] % FEV1-Pre 1.94 L FEV1-%Pred-Pre 83 % [id number] 2.73 L/sec BTN0013-%Pred-Pre 128 % VCSVC-Pre 2.44 L ICSVC-Pre 0.83 [...] -0.516 ml/min/mmHg/L Specimen Performing Laboratory PFT MAIN [address] [place] [address] Narrative Clinical history:->pre-op eval Is this a pre-surgical evaluation?->Yes * POC GLUCOSE (11/23/2017 1:53 PM) Component Value Ref Range Glucose, POC 194 (H) 70 - 100 MG/DL Specimen Performing Laboratory MA[facility] [address] [place] [address] * TYPE & SCREEN (NOT CROSSMATCH ELIGIBLE) (11/23/2017 12:50 PM) Component Value Ref Range ABO/RH(D) A POS Antibody Screen NEG Blood Component Type RED CELL GROUP Specimen Performing Laboratory Blood, venous - Blood [facility] [address] [place] [address] * PLAVIX RESISTANCE (PLATELETWORKS) (11/23/2017 12:18 PM) Component Value Ref Range Platelet Inhibition 3 0 - 15 % Comment: Normal ADP inhibition should be less than 15%. Therapeutic (Plavix and other P2Y 12) levels should be greater than 30%. Specimen Performing Laboratory Blood [facility] [address] [place], [place] [id number] * HEMOGLOBIN A1C (11/23/2017 11:32 AM) Component Value Ref Range Hemoglobin A1C 10.4 (H) 4.0 - 6.0 % Comment: The ADA recommends that most patients with type 1 and type 2 diabetes maintain an A1c level <7%. Specimen Performing Laboratory Blood [facility] [address] [place], [place] [id number] * PTT (APTT) (11/23/2017 11:32 AM) Component Value Ref Range APTT 25.0 21.0 - 39.0 SEC Specimen Performing Laboratory Blood [facility] [address] [place], [place] [id number] * PROTIME INR (PT) (11/23/2017 11:32 AM) Component Value Ref Range INR 1.0 0.8 - 1.2 Specimen Performing Laboratory Blood [facility] [address] [place], [place] [id number] * BNP (B-TYPE NATRIURETIC PEPTI) (11/23/2017 11:32 AM) Component Value Ref Range B Type Natriuretic 345.0 (H) 0 - 100 PG/ML Peptide Specimen Performing Laboratory [facility] [address] [place] [address] * POC GLUCOSE (11/23/2017 11:29 AM) Component Value Ref Range Glucose, POC 219 (H) 70 - 100 MG/DL Specimen Performing Laboratory [facility] [address] [place] [address] * CARDIAC CATH REPORT (11/23/2017 11:10 AM) Specimen Performing Laboratory OTHER OUTSIDE LAB Procedure Note Arnulfo Cortes MD - 11/23/2017 11:10 AM CDT [facility] CARDIAC CATHETERIZATION REPORT Page 2 NIMISHA Condon : 1955 [facility]#: [id number] [facility] MR #/Billing ID #: [id number] / [id number] DATE: 11/23/2017 SENIOR INTEGRATION ARCHITECT: Arnulfo Cortes MD DICTATING PROVIDER: Arnulfo Cortes MD REFERRING PHYSICIAN: ASHLEY BANEGAS PROCEDURES PERFORMED: 1. Left heart catheterization. 2. Selective left and right coronary cineangiograms. PROCEDURE: Ms. Jaramillo is a 62-year-old female who presented with a history of coronary artery disease and recent cardiac catheterization suggesting chronic total occlusion of the mid LAD. On arrival to prosthetic lab technician, she was hemodynamically stable and pain free. Moderate IV conscious sedation was monitored and administered by myself, nursing, and technical staff for a total duration of 30 minutes. The bilateral groins were then prepped and draped in typical fashion. We infiltrated the right groin with approximately 20 mL of 1% lidocaine and advanced a 5-[place] arterial sheath. Selective left and right coronary cineangiograms as well as left heart catheterization were performed utilizing a 5-[place] diagnostic coronary catheter. Intracoronary nitroglycerin was administered [...] There was some faint left-to- left and cafgu-th-vjrl collateralization of the apical segment of the [...] second obtuse marginal branch. There was some rjri-rh-utgoc collateralization of the posterolateral segment. 5. The [place] right coronary was visualized with a JR4 [...] mid left anterior descending artery with faint umvf-pv-bhvw collaterals. b. 90% mid second obtuse marginal stenosis with a 70% ostial circumflex stenosis. c. 95% proximal posterior lateral stenosis. PLAN: We will consult Cardiothoracic Surgery for evaluation. MD MG Toth/Hakeem /[id number] cc: - ASHLEY BANEGAS * POC GLUCOSE (11/23/2017 9:49 AM) Component Value Ref Range Glucose, POC 272 (H) 70 - 100 MG/DL Specimen Performing Laboratory [facility]IN [facility] [address] [place] [address] * POC GLUCOSE (11/23/2017 8:48 AM) Component Value Ref Range Glucose, POC 297 (H) 70 - 100 MG/DL Specimen Performing Laboratory MAIN [facility] [address] [place] [id number] * LIPID PROFILE (11/23/2017 8:48 AM) Component [...] than 130 mg/dL. Specimen Performing Laboratory Blood MAIN [facility] [address] [place] [address] in this encounter Visit Diagnoses Diagnosis Coronary artery disease involving [place] coronary artery of [place] heart with unstable angina pectoris (HCC) - Primary Tooth decay Unspecified dental caries Admitting Diagnoses Diagnosis CHRONIC TOTAL OCCLUSION OF LEFT ANTERIOR DESCENDING ARTERY Tooth decay - CAD (coronary artery disease) Unspecified dental caries Administered Medications Medication Order MAR Action Action Date Dose Rate Site acetaminophen (TYLENOL) tablet 650 mg Given 11/23/2017 650 mg 650 mg, Oral, EVERY 4 HOURS PRN, 15:46 CDT Starting 11/23/17 at 0825, Until Thu11/25/17 at 1033, Pain non-opioid: may be used alone or in combination with opioid analgesia, TOTAL ACETAMINOPHEN DOSE NOT TO EXCEED 4GM DAILY Given 11/24/2017 650 mg 16:06 CDT Given 11/25/2017 650 mg 06:55 CDT aluminum/magnesium hydroxide (MAALOX) Given 11/24/2017 30 mL oral suspension 30 mL 09:57 CDT 30 mL, Oral, EVERY 4 HOURS PRN, Starting 11/23/17 at 0825, Until Thu11/25/17 at 1033, Indigestion/Heartburn, Admission/Obs/Extended Recovery amLODIPine (NORVASC) tablet 10 mg Given 11/23/2017 10 mg 10 mg, Oral, DAILY, First dose on Mon 20:33 CDT 11/23/17 at 1015, Until Discontinued, NURSING: Please educate patient and document: Do not give with grapefruit juice. Given 11/24/2017 10 mg 08:02 CDT Given 11/25/2017 10 mg 08:03 CDT aspirin EC tablet 81 mg Given 11/24/2017 81 mg 81 mg, Oral, DAILY, First dose on Thu 08:02 CDT 11/24/17 at 0900, Until Discontinued, Admission/Obs/Extended Recovery Given 11/25/2017 81 mg 08:03 CDT atorvastatin (LIPITOR) tablet 40 mg Given 11/23/2017 40 mg 40 mg, Oral, DAILY, First dose on Thu 20:33 CDT 11/23/17 at 1200, Until Discontinued, Admission/Obs/Extended Recovery Given 11/25/2017 40 mg 08:02 CDT diphenhydrAMINE (BENADRYL) capsule 25 mg 25 mg, Oral, EVERY 4 HOURS PRN, Starting Thu11/23/17 at 1110, Until Thu11/25/17 at 1033, Rash diphenhydrAMINE (BENADRYL) injection 25 mg 25 mg, Intravenous, EVERY 4 HOURS PRN, Starting Thu11/23/17 at 1110, Until Thu11/25/17 at 1033, Rash insulin aspart U-100 (NOVOLOG FLEXPEN) Given 11/24/2017 10 Units Arm, Right injection PEN 0-14 Units 12:21 CDT 0-14 Units, Subcutaneous, BEFORE MEALS AND AT BEDTIME, First dose on Thu11/24/17 at 1100, Until Discontinued, -POC glucose 140-180mg/dL at administer 2 units insulin, at 21, 03* administer 0 units. -POC glucose 181-220mg/dL at administer 4 units insulin, at 21, 03* administer 2 units. -POC glucose 221-260mg/dL at administer 6 units insulin, at 21, 03* administer 4 units. -POC glucose 261-300mg/dL at administer 8 units insulin, at 21, 03* administer 6 units. -POC glucose 301-350mg/dL at , administer 10 units insulin, at 21, 03* administer 8 units. -POC glucose 351-400mg/dL at , , administer 12 units insulin, at 21, 03* administer 10 units. -POC glucose >400mg/dL at , administer 14 units insulin, at 21, [...] This is a HIGH ALERT Medication. insulin aspart U-100 (NOVOLOG FLEXPEN) Given 11/23/2017 6 Units Abdomen:LLQ injection PEN 0-7 Units 17:40 CDT 0-7 Units, Subcutaneous, BEFORE MEALS AND AT BEDTIME, First dose on Thu11/23/17 at 1100, Until Discontinued, -POC glucose 140-180mg/dL at , , administer 1 unit insulin, at 21, 03* administer 0 units. -POC glucose 181-220mg/dL at , , administer 2 units insulin, at 21, 03* administer 1 unit. -POC glucose 221-260mg/dL at , , administer 3 units insulin, at , 03* administer 2 units. -POC glucose 261-300mg/dL at , , administer 4 units insulin, at 21, 03* administer 3 units. -POC glucose 301-350mg/dL at , , administer 5 units insulin, at , 03* administer 4 units. -POC glucose 351-400mg/dL at , , administer 6 units insulin, at 21, 03* administer 5 units. -POC glucose >400mg/dL at , , 17 administer 7 units insulin, at 21, 03* administer 6 units. *only if ordered 5x's daily For POCT glucose >350mg/dL give correction bolus and recheck POCT glucose in 2 hours. If POCT glucose at 2 hours >300mg/dL call physician for further orders. For patients who are not eating meals, continue to administer the appropriate correction factor. NOTE: This is a HIGH ALERT Medication. Given 11/23/2017 3 Units Abdomen:RLQ 20:25 CDT Given 11/24/2017 3 Units Arm, Left 08:00 CDT insulin aspart U-100 (NOVOLOG FLEXPEN) injection PEN 10 Units 10 Units, Subcutaneous, THREE TIMES DAILY WITH MEALS, First dose on Thu11/25/17 at 0800, Until Discontinued, Hold if NPO for procedure, unable to eat, or if FSBS < 70 mg/dL Give at start of meal. NOTE: This is a HIGH ALERT Medication. insulin glargine (LANTUS SOLOSTAR, Given 11/24/2017 35 Units Arm, Right BASAGLAR) injection PEN 35 Units 12:24 CDT 35 Units, Subcutaneous, DAILY, First dose on Thu11/24/17 at 1130, Until Discontinued, Continue if NPO. DO NOT mix with other insulins -- Do not mix with other insulins -- NOTE: This is a HIGH ALERT Medication. insulin glargine (LANTUS SOLOSTAR, BASAGLAR) injection PEN 35 Units 35 Units, Subcutaneous, AT BEDTIME DAILY, First dose on Thu11/25/17 at 2100, Until Discontinued, Continue if NPO. DO NOT mix with other insulins -- Do not mix with other insulins -- NOTE: This is a HIGH ALERT Medication. isosorbide mononitrate SR (IMDUR) tablet Given 11/23/2017 30 mg 30 mg 13:53 CDT 30 mg, Oral, EVERY MORNING, First dose on Thu11/23/17 at 1200, Until Discontinued, DO NOT Crush tablets (May be cut in half) Given 11/24/2017 30 mg 08:02 CDT Given 11/25/2017 30 mg 08:03 CDT lisinopril (PRINIVIL; ZESTRIL) tablet 20 Given 11/23/2017 20 mg mg 20:33 CDT 20 mg, Oral, DAILY, First dose on Thu11/23/17 at 2100, Until Discontinued, Admission/Obs/Extended Recovery Given 11/24/2017 20 mg 08:02 CDT Given 11/25/2017 20 mg 08:03 CDT metoprolol XL (TOPROL XL) tablet 100 mg Given 11/23/2017 100 mg 100 mg, Oral, DAILY, First dose on Thu 13:53 CDT 11/23/17 at 1200, Until Discontinued, Hold for heart rate < 60 bpm or systolic BP < 100 tablets may be cut in half, DO NOT CRUSH or CHEW Given 11/24/2017 100 mg 08:02 CDT Given 11/25/2017 100 mg 08:02 CDT morphine injection syringe 1-2 mg Given 11/24/2017 1 mg 1-2 mg, Intravenous, EVERY 6 HOURS PRN, 20:31 CDT Starting Thu11/24/17 at 2005, Until Thu11/25/17 at 1033, Pain Injectable, Max 5 doses Given 11/25/2017 1 mg 04:13 CDT potassium chloride SR (K-DUR) tablet 20 Given 11/25/2017 20 mEq mEq 08:13 CDT 20 mEq, Oral, ONCE, 1 dose, Thu11/25/17 at 0615, Do NOT break or crush tablet sodium chloride 0.9 % infusion Given - New 11/23/2017 75 mL/hr 1,000 mL, Intravenous, at 75 mL/hr, Bag 09:11 CDT CONTINUOUS, Starting Thu11/23/17 at 0830, Until Thu11/24/17 at 0931, If EF is <40%, contact CCL Charge Nurse [phone]) before initiating fluid. sodium chloride 0.9 % infusion Given - 11/24/2017 1,000 mL 20 mL/ hr 1,000 mL, 1,000 mL, Intravenous, at 20 Bag 17:27 CDT mL/hr, CONTINUOUS, Starting Thu11/24/17 at 1730, Until Thu11/25/17 at 1033, Pre-Op spironolactone (ALDACTONE) tablet 12.5 Given 11/24/2017 12.5 mg mg 12:26 CDT 12.5 mg, Oral, DAILY, First dose on Thu11/24/17 at 1145, Until Discontinued, NURSING: Please educate patient and document: Avoid using salt substitutes which have a high potassium content (Nu-Salt). Given 11/25/2017 12.5 mg 08:03 CDT in this encounter
--- OUTSIDE RECORDS SUMMARY | 2017-12-09 01:04 | XMS REPORT | Encounter Summary ---
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
--- OUTSIDE RECORDS SUMMARY | 2017-12-09 01:05 | XMS REPORT | Encounter Summary ---
Author Author [facility] Organization [facility] Address Unknown Phone Unavailable Care Team Providers Care Online Health And Fitness Coach Name Role Phone Deann Parker MD PCP Encounter Details Date Type Department Care Team Description 11/24/2017 Procedure Pass Main Operating Room [address] [place] [address] Social History Tobacco Use Types Packs/Day Years [...]
--- OUTSIDE RECORDS SUMMARY | 2017-12-09 01:05 | XMS REPORT | Encounter Summary ---
Author Author [facility] Organization [facility] Address Unknown Phone Unavailable Care Team Providers Care Clinical Trials Manager Name Role Phone Ashley Banegas MD PCP Reason for Visit * Auth/Cert (Routine) Status Reason Specialty Diagnoses / Referred By Referred To Procedures Contact Contact Encounter Details Date Type Department Care Team Description 11/24/2017 Surgery Main Operating Room Dena Gayle DDS EXTRACTION TEETH #6, 7, [address] 8, 9, 10, 11, 14, 22[address] [place] [address] [facility] [address] [place] [address] [phone] Social History Tobacco Use Types Packs/Day Years [...] History: Diagnosis Date Bilateral carotid artery disease ([facility]) 11/17/2017 05/04/17 - Carotid U/S: mild 1-39% stenosis, nonobstructive disease bilaterally. Coronary artery disease involving the [place] coronary artery of the [place] heart with unstable angina pectoris ([facility]) 11/17/2017 03/04/17 - LHC: Total occlusion of [...] Mixed hyperlipidemia 11/17/2017 PAD (peripheral artery disease) ([facility]) 11/17/2017 Type 2 diabetes mellitus with complication, with long-term current use of insulin ([facility]) 11/17/2017 Allergies: Fish containing products; Ketoprofen; and [...] extraction on 11/11 and recent insulin adjustment. 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 The endoscopy specialty technician also met with the patient and her [...] 97-144. She will resume Metformin at the BULLET CASTING OPERATOR dose, only when she is eating regular [...] She has been on Lasix 40mg daily BULLET CASTING OPERATOR but was instructed to stop this and [...] Active Problems * (Principal)Coronary artery disease involving the [place] coronary artery of the [place] heart with unstable angina pectoris (HCC) Essential [...] There was some faint left-to- left and zdmss-kh-wsyl collateralization of the apical segment of the [...] second obtuse marginal branch. There was some ucce-mc-bufpz collateralization of the posterolateral segment. 5. The the [place] right coronary was visualized with a JR4 [...] HOURS (8:00 AM - 4:30 PM): Call [phone] and asked to be transferred to your discharge attending physician. - AFTER BUSINESS HOURS (4:30 PM - 8:00 AM, on weekends, or holidays): Call [phone] and ask the chief catalyst operator to page the on-call doctor for the discharge attending physician. Discharging attending physician: ARNULFO CORTES [[id number]] Cardiac Diet Limiting unhealthy fats and cholesterol [...] home, you can call a dietitian at [phone]. Incision Care *Call if there is an increase in pain, swelling, or redness in your right groin or your gums. Take Tylenol for pain. *DO NOT soak groin incision in water. *NO tub baths, hot tubs, or swimming. *You may shower after discharge. [facility] is a gathering place for individuals, families, [...] please call . You can also visit [email or web address] for more information. Current Discharge Medication List START taking these medications Details spironolactone (ALDACTONE) 25 mg tablet Take 0.5 tablets by mouth daily. Take with food. Qty: 15 tablet, Refills: 5 PRESCRIPTION TYPE: Normal Associated Diagnoses: Coronary artery disease involving the [place] coronary artery of the [place] heart with unstable angina pectoris (HCC) CONTINUE these medications which have been CHANGED or REFILLED Details !! insulin aspart U-100 (NOVOLOG FLEXPEN) 100 unit/mL injection PEN Inject 10 Units under the skin three times daily with meals. Qty: 45 mL, Refills: 3 PRESCRIPTION TYPE: No Print Associated Diagnoses: Coronary artery disease involving the [place] coronary artery of the [place] heart with unstable angina pectoris (HCC) !! insulin aspart U-100 (NOVOLOG FLEXPEN) 100 unit/mL injection PEN Inject 0-14 Units under the skin three times daily with meals. Qty: 45 mL, Refills: 3 PRESCRIPTION TYPE: Normal Associated Diagnoses: Coronary artery disease involving the [place] coronary artery of the [place] heart with unstable angina pectoris (HCC) insulin detemir(+) (LEVEMIR) 100 unit/mL soln Inject 35 Units under the skin at bedtime daily. Qty: 10 mL, Refills: 12 PRESCRIPTION TYPE: No Print Associated Diagnoses: Coronary artery disease involving the [place] coronary artery of the [place] heart with unstable angina pectoris (HCC) !! [...] 2017 2:00 PM CDT Pre-Op Nurse with [facility] ([facility]) [address] [address] December 01, 2017 2:30 PM CDT PAC Office Visit with PAC ROOM 6 Preoperative Assessment Clinic (--) [address] [facility] [address] Pending items needing follow up: as above Signed: Corrie Fuentes PA-C 11/25/2017 cc: Primary Care Physician: Ashley Banegas Verified Referring physicians: Ashley Banegas MD in this encounter Discharge Instructions * Discharge Instr - Appointments - Meghan Mercado PHARMD - 11/25/2017 7:48 AM CDT Formatting of [...] minutes Novolog is in the [place]. If your pre meal Blood sugar [...] artery disease involving three times daily with the [place] coronary artery of meals. Plus 0-14 units the [place] heart with on sliding scale. unstable angina pectoris (HCC) insulin detemir(+) Inject 26 Units under the 10 mL 12 12/08/2017 (LEVEMIR) 100 unit/mL skin at bedtime daily. solnIndications: Coronary artery disease involving the [place] coronary artery of the [place] heart with unstable angina pectoris (HCC) lisinopril [...] with food. tabletIndications: Coronary artery disease involving the [place] coronary artery of the [place] heart with unstable angina pectoris (HCC) traMADol (ULTRAM) 50 mg Take 50 mg by mouth every tablet 6 hours as needed for Pain. amLODIPine (NORVASC) 10 Take 10 mg by mouth 12/08/2017 mg tablet daily. insulin aspart U-100 Inject 10 Units under the 45 mL 3 11/25/2017 (NOVOLOG FLEXPEN) 100 skin three times daily unit/mL injection with meals. PENIndications: Coronary artery disease involving the [place] coronary artery of the [place] heart with unstable angina pectoris (HCC) insulin aspart U-100 Inject 0-14 Units under 45 mL 3 11/25/2017 (NOVOLOG FLEXPEN) 100 the skin three times unit/mL injection daily with meals. PENIndications: Coronary artery disease involving the [place] coronary artery of the [place] heart with unstable angina pectoris (HCC) insulin detemir(+) Inject 35 Units under the 10 mL 12 11/25/2017 (LEVEMIR) 100 unit/mL skin at bedtime daily. solnIndications: Coronary artery disease involving the [place] coronary artery of the [place] heart with unstable angina pectoris (HCC) isosorbide [...] front door by hospital staff. * Mary Schwab RN - 11/25/2017 4:53 AM CDT Pt arrived [...] recently updated. Dena Gayle DDS, PhD Pager [phone] * Jennifer Elkins RN - 11/24/2017 12:04 PM CDT S/P Cardiac [...] and provide further information. Italo Russo PA-C [id number] Associated attestation - Kenny Enrique MD - [...] Warren RN - 11/24/2017 10:09 AM CDT [id number]: Phone report given to Caroline PEARCE regarding pt to transfer care to [phone]. * Corrie Fuentes PA-C - 11/24/2017 8:21 AM CDT Formatting of this note may be different from the original. 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 Dental Caries -Panorex xray 11/23/17 revealed erosions or caries involving the remaining maxillary teeth, sparing the residual left maxillary molar. Thin rind of lucency surrounding the right mandibular canine tooth, likely due to periodontal disease/gingivitis. 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 Cortes from her home telecommunications cable jointer to attempt PCI of her known MANAGER LAW LAD lesion. Dr. Cortes consulted CTS for evaluation for surgical revascularization after [facility] today revealed severe, multivessel CAD in [...] 3.351% CATH FINDINGS: Coronary Stenosis LAD--> MANAGER LAW Diag--> 80% proximal OM --> 70% ostial, 90% mid RCA--> 95% distal PMH: Past Medical History: Diagnosis Date Bilateral carotid artery disease ([facility]) 11/17/2017 05/04/17 - Carotid U/S: mild 1-39% stenosis, nonobstructive disease bilaterally. Coronary artery disease involving the [place] coronary artery of the [place] heart with unstable angina pectoris ([facility]) 11/17/2017 03/04/17 - LHC: Total occlusion of [...] Mixed hyperlipidemia 11/17/2017 PAD (peripheral artery disease) ([facility]) 11/17/2017 Type 2 diabetes mellitus with complication, with long-term current use of insulin ([facility]) 11/17/2017 PSH: Past Surgical History: Procedure Laterality [...] Hospital Problems Diagnosis Coronary artery disease involving the [place] coronary artery of the [place] heart with unstable angina pectoris (HCC) 03/05/17 - [facility]: Total occlusion of the mid LAD, balloon angioplasty using 2 different sized balloons. No reestablishment of flow. Appears the artery is diffusely diseased & occluded. Proximal portion has severe disease - balloon angioplasty with slight improvement. Severe disease at mid and distal circumflex - fairly small artery. Patent stent in large dominant RCA. Normal LV , EF 60%, normal LVEDP. 06/16/16 - C: Severe in-stent restenosis in prox and mid [...] fairly small artery. Normal LVEDP. 06/2015 - [facility]: 2.5 x 18 mm Resolute Integrity stent to mid circumflex, prox lesion is 40% stenosed, distal lesion 80%. Patent multiple stents in prox, mid, and distal LAD w/ mild in-stent restenosis. Patent stent in RCA w/ mild disease in distal RCA. 05/2015 [facility]: 3.5 x 12 mm & 2.75 x 24 mm Promus Premier overlapping stents to mid RCA. Patent stents in the LAD. Severe stenosis at distal LAD, 70% prox circumflex and 70-80% mid to distal circ/OM branch. [facility]: 2.5 x 24 mm and 2.5 x 20 mm Promusto distal and proximal LAD, 50% prox circumflex, 70-80% mid to distal circumflex involving the proximal portion of OM1, 50-60% mid RCA, LV anterior wall hypokinetic. EF 40%. Essential hypertension Mixed hyperlipidemia History of tobacco abuse Type 2 diabetes mellitus with complication, with long-term current use of insulin (HCC) Plan: Dr. Enrique has reviewed all of the patient's preop testing. He agrees that surgical intervention is the most appropriate course of action. The entire procedure, risks, benefits, alternatives, and complications have been discussed. Potential risks include but are not limited to infection, arrhythmias , bleeding requiring re-operation, prolonged intubation, ARF requiring hemodialysis, CVA, [place], and possibly even . The patient understands, [...] of arrival for Thursday. Italo Russo PA-C [id number] Associated attestation - Kenny Enrique MD - [...] nice lady. Reji Enrique M.D. * Rosa Ogden RN - 11/23/2017 8:31 AM CDT Patient arrived [...] from date of service 11/23/2017. ALENA Richards ([id number]) Progress Notes Arnulfo Cortes MD (Physician) Cardiology [...] Diagnosis Date Noted Bilateral carotid artery disease ([facility]) 11/17/2017 05/04/17 - Carotid U/S: mild 1-39% stenosis, nonobstructive disease bilaterally. Coronary artery disease involving the [place] coronary artery of the [place] heart with unstable angina pectoris ([facility]) 11/17/2017 03/05/17 - [facility]: Total occlusion of the mid LAD, balloon angioplasty using 2 different sized balloons. No reestablishment of flow. Appears the artery is diffusely diseased & occluded. Proximal portion has severe disease - balloon angioplasty with slight improvement. Severe disease at mid and distal circumflex - fairly small artery. Patent stent in large dominant RCA. Normal LV , EF 60%, normal LVEDP. 06/16/16 - [facility]: Severe in-stent restenosis in prox and [...] fairly small artery. Normal LVEDP. 06/2015 - [facility]: 2.5 x 18 mm Resolute Integrity stent to mid circumflex, prox lesion is 40% stenosed, distal lesion 80%. Patent multiple stents in prox, mid, and distal LAD w/ mild in-stent restenosis. Patent stent in RCA w/ mild disease in distal RCA. 05/2015 [facility]: 3.5 x 12 mm & 2.75 x 24 mm Promus Premier overlapping stents to mid RCA. Patent stents in the LAD. Severe stenosis at distal LAD, 70% prox circumflex and 70-80% mid to distal circ/OM branch. [facility]: 2.5 x 24 mm and 2.5 x 20 mm Promusto distal and proximal LAD, 50% prox circumflex, 70-80% mid to distal circumflex involving the proximal portion of OM1, 50-60% mid RCA, LV anterior wall hypokinetic. EF 40%. PAD (peripheral artery disease) ([facility]) 11/17/2017 Essential hypertension 11/17/2017 Mixed hyperlipidemia 11/17/2017 History of tobacco abuse 11/17/2017 Type 2 diabetes mellitus with complication, with long-term current use of insulin ([facility]) 11/17/2017 Past Surgical History: Procedure Laterality Date [...] Diagnoses Name Primary? Coronary artery disease involving the [place] coronary artery of the [place] heart with unstable angina pectoris (HCC) Yes Type 2 diabetes mellitus with complication, with long-term current use of insulin ([facility]) Assessment and Plan Coronary artery disease -reviewing [...] AM CDT Associated Order(s): CARDIAC CATH REPORT [facility] CARDIAC CATHETERIZATION REPORT Page 2 NIMISHA Condon : 1955 #: [id number] MR #/Billing ID #: [id number] / [id number] DATE: 11/23/2017 LIQUEFACTION PLANT OPERATOR: Arnulfo Cortes MD DICTATING PROVIDER: Arnulfo Cortes MD REFERRING PHYSICIAN: ASHLEY BANEGAS PROCEDURES PERFORMED: 1. Left heart catheterization. 2. Selective left and right coronary cineangiograms. PROCEDURE: Ms. Jaramillo is a 62-year-old female who presented with a history of coronary artery disease and recent cardiac catheterization suggesting chronic total occlusion of the mid LAD. On arrival to research lab assistant, she was hemodynamically stable and pain free. Moderate IV conscious sedation was monitored and administered by myself, nursing, and technical staff for a total duration of 30 minutes. The bilateral groins were then prepped and draped in typical fashion. We infiltrated the right groin with approximately 20 mL of 1% lidocaine and advanced a 5-[place] arterial sheath. Selective left and right coronary cineangiograms as well as left heart catheterization were performed utilizing a 5-[place] diagnostic coronary catheter. Intracoronary nitroglycerin was administered [...] There was some faint left-to- left and hhqny-ey-fsvc collateralization of the apical segment of the [...] second obtuse marginal branch. There was some nqpj-zp-skqfy collateralization of the posterolateral segment. 5. The [place] right coronary was visualized with a JR4 [...] mid left anterior descending artery with faint nahx-hq-buxa collaterals. b. 90% mid second obtuse marginal stenosis with a 70% ostial circumflex stenosis. c. 95% proximal posterior lateral stenosis. PLAN: We will consult Cardiothoracic Surgery for evaluation. MD MG Toth/Hakeem /[id number] cc: - ASHLEY BANEGAS in this encounter [...] this consult Dena Gayle DDS, PHD Pager [phone] * Jennifer Ohsea, PORTIA - 11/24/2017 1:44 PM CDT Associated Order(s): CONSULT DIABETES NURSE EDUCATOR Formatting of this note may be different from the original. INPATIENT DIABETES EDUCATION TEAM Clinical Excellence Nursing Practice Reason for Consult: Other (Comment) Order comments: Poorly managed diabetes at home. Changing regimen Discussed Consult with Primary Team: Dr. Gutierrez, Channel Opener Outsoles, Aneta, bedside RN Patient may benefit from: referral to [facility] for Diabetes Education, Postmaster to cover carb controlled/heart healthy diet, and [...] bedside. Educator explained to pt that the Channel Opener Outsoles who visited with pt earlier was changing pt's insulin dosing schedule to see if BULLET CASTING OPERATOR insulin was really what was needed. Her [...] minutes Novolog is in the [place] pen. If your pre meal Blood sugar [...] - Diabetes Education Nursing Clinical Excellence [facility] [email or web address] [phone] office [phone] pager * Terrance Mack MD - 11/24/2017 11:12 AM CDT Associated Order(s): CONSULT ENDOCRINOLOGY PHYSICIAN Formatting of this note may be different from the original. 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 We will request endoscopy specialty technician to come and talk to patient about [...] History: Diagnosis Date Bilateral carotid artery disease ([facility]) 11/17/2017 05/04/17 - Carotid U/S: mild 1-39% stenosis, nonobstructive disease bilaterally. Coronary artery disease involving the [place] coronary artery of the [place] heart with unstable angina pectoris ([facility]) 11/17/2017 03/04/17 - [facility]: Total occlusion of the mid LAD, [...] Mixed hyperlipidemia 11/17/2017 PAD (peripheral artery disease) ([facility]) 11/17/2017 Type 2 diabetes mellitus with complication, with long-term current use of insulin ([facility]) 11/17/2017 Past Surgical History Past Surgical History: [...] 82 (11/24 1000) Respirations: 15 PER MINUTE (11/24 1999) SpO2: 99 % (11/24 075) O2 Delivery: None (Room Air) (11/24 753) [...] clubbing, cyanosis or edema Skin: no rashes/lesions FISH CLEANER: Grossly nonfocal Lab Review Point of Care Testing (Last 24 hours) Glucose: (!) 254 (11/24/17 0416) POC Glucose (Download): (!) 333 (11/24/17 1041) Recent Labs 11/23/17 11311/24/17415 NA -- 136* K -- 3.8 CL -- 105 CO2 -- 22 GAP -- 9 BUN -- 17 CR -- 0.61 GLU -- 254* CA -- 9.4 MG -- 1.8 HGBA1C 10.4* -- Recent Labs 11/23/17 1132 11/24/17 0416 WBC -- 6.0 HGB -- 12.7 HCT -- 36.3 PLTCT -- 143* INR 1.0 -- PTT 25.0 -- Estimated Creatinine Clearance: 77.4 mL/min (based on SCr of 0.61 mg/dL). Vitals: 11/23/17 0840 Weight: 71.8 kg (158 lb 4.6 oz) Thyroid Studies No results found for: TSH, FREET4, FREEINDEX No results found for: FREET3, S7NELOMUN, THYBINDGLB Eugenia Gutierrez MD Endocrinology Fellow PGY-5 [...] of a resident. Dena Gayle DDS Pager [phone] * Care Plan - Aneta Goodson - 11/24/2017 3:28 PM CDT Problem: Falls, High Risk of Goal: Absence of falls-Adult Patient Outcome: Goal Ongoing High fall risk in place, pt has not had a fall * Patient Education - Sofiya Zhang, RN - 11/20/2017 9:32 AM CDT Spoke [...] 100 MG/DL Specimen Performing Laboratory MAIN LAB [address] [place] [address] * BASIC METABOLIC PANEL (11/25/2017 4:07 AM) [...] Pharmacist for questions. Specimen Performing Laboratory Blood [facility] [address] [place] [address] * POC GLUCOSE (11/24/2017 9:33 PM) Component Value Ref Range Glucose, POC 131 (H) 70 - 100 MG/DL Specimen Performing Laboratory [facility] [address] [place] [address] * POC GLUCOSE (11/24/2017 6:36 PM) Component Value Ref Range Glucose, POC 97 70 - 100 MG/DL Specimen Performing Laboratory MAIN LAB [address] [place] [address] * POC GLUCOSE (11/24/2017 5:23 PM) Component Value Ref Range Glucose, POC 105 (H) 70 - 100 MG/DL Specimen Performing Laboratory MAIN LAB [address] [place] [address] * POC GLUCOSE (11/24/2017 5:10 PM) Component Value Ref Range Glucose, POC 119 (H) 70 - 100 MG/DL Specimen Performing Laboratory MAIN LAB [address] [place] [address] * POC GLUCOSE (11/24/2017 12:19 PM) Component Value Ref Range Glucose, POC 318 (H) 70 - 100 MG/DL Specimen Performing Laboratory MAIN LAB [address] [place], [place] [id number] * POC GLUCOSE (11/24/2017 10:41 AM) Component Value Ref Range Glucose, POC 333 (H) 70 - 100 MG/DL Specimen Performing Laboratory MAIN LAB [address] [place] [address] * POC GLUCOSE (11/24/2017 7:57 AM) Component Value Ref Range Glucose, POC 222 (H) 70 - 100 MG/DL Specimen Performing Laboratory MAIN LAB [address] [place] [address] * MAGNESIUM (11/24/2017 4:16 AM) Component Value Ref Range Magnesium 1.8 1.6 - 2.6 mg/dL Specimen Performing Laboratory Blood [facility] [address] [place] [address] * CBC (11/24/2017 4:16 AM) Component Value [...] - 11 FL Specimen Performing Laboratory Blood [facility] [address] [place] [address] * BASIC METABOLIC PANEL (11/24/2017 4:16 AM) [...] Performing Laboratory Blood [facility] [address] [place] [address] * POC GLUCOSE (11/24/2017 1:17 AM) Component Value Ref Range Glucose, POC 212 (H) 70 - 100 MG/DL Specimen Performing Laboratory [facility] [address] [place] [address] * MRA HEAD WO CONTRAST (11/23/2017 9:39 [...] 62 years old, intracranial aneurysm. TECHNIQUE: 3D rrll-pd-btborhqnqulc of the [place] of [place] was performed without contrast. MRA [...] 62 years old, intracranial aneurysm. TECHNIQUE: 3D rmjq-ng-osmohc images of the [place] of [place] was performed without contrast. MRA [...] 100 MG/DL Specimen Performing Laboratory MAIN LAB [address] [place] [address] * POC GLUCOSE (11/23/2017 5:09 PM) Component Value Ref Range Glucose, POC 322 (H) 70 - 100 MG/DL Specimen Performing Laboratory [facility] [address] [place] [address] * CULTURE-URINE W/SENSITIVITY (11/23/2017 2:52 PM) Component Value Ref Range Battery Name URINE CULTURE Specimen Description URINE Special Requests NONE Culture <10,000 organisms/ml MIXED CONTAMINANTS Report Status FINAL 11/24/2017 Specimen Performing Laboratory Urine [facility] [address] [place] [address] * URINALYSIS MICROSCOPIC REFLEX TO CULTURE (11/23/2017 2:52 PM) Component Value Ref Range WBCs,UA PACKED 0 - 2 /HPF RBCs,UA 2-10 0 - 3 /HPF Comment,UA Urine submitted for reflex culture if criteria are met:WBC>10, positive nitrite and/or >=1+ leukocyte esterase. If quantity is not sufficient, an addendum will follow. MucousUA TRACE Squamous Epithelial Cells 2-5 0 - 5 Specimen Performing Laboratory Urine [facility] [address] [place] [address] * URINALYSIS DIPSTICK REFLEX TO CULTURE (11/23/2017 2:52 PM) Component Value Ref Range Color,UA YELLOW Turbidity,UA CLEAR CLEAR-CLEAR Specific Palmer-Urine 1.050 (H) 1.003 - 1.035 pH,UA 5.0 5.0 - 8.0 Protein,UA NEG NEG-NEG Glucose,UA 3+ (A) NEG-NEG Ketones,UA NEG NEG-NEG Bilirubin,UA NEG NEG-NEG Blood,UA 1+ (A) NEG-NEG Urobilinogen,UA NORMAL NORM-NORMAL Nitrite,UA NEG NEG-NEG Leukocytes,UA 3+ (A) NEG-NEG Urine Ascorbic Acid, UA NEG NEG-NEG Specimen Performing Laboratory Urine [facility] [address] [place] [address] * PANOREX EXAM (11/23/2017 2:41 PM) Specimen [...] history: pre-op eval. Coronary artery disease involving the [place] coronary artery of the [place] heart with unstable angina pectoralis Comparison: None. . Findings: The heart size and pulmonary vascularity are within normal limits. The lungs are clear. No consolidation or pleural effusion is identified. Surgical clips overlie the right upper quadrant of the abdomen. . Procedure Note Interface, Radiant Results - 11/23/2017 2:49 PM CDT CHEST 2 VIEWS . Clinical history: pre-op eval. Coronary artery disease involving the [place] coronary artery of the [place] heart with unstable angina pectoralis Comparison: None. [...] 0.57 E/E' ratio 11.29 CV ECHO PV CROWN ASSEMBLY MACHINE SET UP MECHANIC STEVEN Flowers LV mass 203.43 66 - 150 g RWT 0.53 <=0.42 Cardiology Ultrasound Siemens [id number] Machine Left Ventricle Mass Index 114.93 44 [...] % FEV1-Pre 1.94 L FEV1-%Pred-Pre 83 % [id number]-Rfw 2.73 L/sec LFV8147-%Pred-Pre 128 % VCSVC-Pre 2.44 L ICSVC-Pre 0.83 [...] -0.516 ml/min/mmHg/L Specimen Performing Laboratory PFT MAIN [address] [place] [address] Narrative Clinical history:->pre-op eval Is this a pre-surgical evaluation?->Yes * POC GLUCOSE (11/23/2017 1:53 PM) Component Value Ref Range Glucose, POC 194 (H) 70 - 100 MG/DL Specimen Performing Laboratory MAIN LAB [address] [place] [address] * TYPE & SCREEN (NOT CROSSMATCH ELIGIBLE) (11/23/2017 12:50 PM) Component Value Ref Range ABO/RH(D) A POS Antibody Screen NEG Blood Component Type RED CELL GROUP Specimen Performing Laboratory Blood, venous - Blood MAIN LAB [address] [place] [address] * PLAVIX RESISTANCE (PLATELETWORKS) (11/23/2017 12:18 PM) Component Value Ref Range Platelet Inhibition 3 0 - 15 % Comment: Normal ADP inhibition should be less than 15%. Therapeutic (Plavix and other P2Y 12) levels should be greater than 30%. Specimen Performing Laboratory Blood MAIN LAB [address] [place] [address] * HEMOGLOBIN A1C (11/23/2017 11:32 AM) Component Value Ref Range Hemoglobin A1C 10.4 (H) 4.0 - 6.0 % Comment: The ADA recommends that most patients with type 1 and type 2 diabetes maintain an A1c level <7%. Specimen Performing Laboratory Blood MAIN LAB [address] [place] [address] * PTT (APTT) (11/23/2017 11:32 AM) Component Value Ref Range APTT 25.0 21.0 - 39.0 SEC Specimen Performing Laboratory Blood MAIN LAB [address] [place] [address] * PROTIME INR (PT) (11/23/2017 11:32 AM) Component Value Ref Range INR 1.0 0.8 - 1.2 Specimen Performing Laboratory Blood MAIN LAB [address] [place] [address] * BNP (B-TYPE NATRIURETIC PEPTI) (11/23/2017 11:32 AM) Component Value Ref Range B Type Natriuretic 345.0 (H) 0 - 100 PG/ML Peptide Specimen Performing Laboratory Blood MAIN LAB [address] [place] [address] * POC GLUCOSE (11/23/2017 11:29 AM) Component Value Ref Range Glucose, POC 219 (H) 70 - 100 MG/DL Specimen Performing Laboratory MAIN LAB [address] [place] [address] * CARDIAC CATH REPORT (11/23/2017 11:10 AM) Specimen Performing Laboratory OTHER OUTSIDE LAB Procedure Note Arnulfo Cortes MD - 11/23/2017 11:10 AM CDT [facility] CARDIAC CATHETERIZATION REPORT Page 2 NIMISHA Condon : 1955 [facility]#: [id number] MR #/Billing ID #: [id number] / [id number] DATE: 11/23/2017 LIQUEFACTION PLANT OPERATOR: Arnulfo Cortes MD DICTATING PROVIDER: Arnulfo Cortes MD REFERRING PHYSICIAN: ASHLEY BANEGAS PROCEDURES PERFORMED: 1. Left heart catheterization. 2. Selective left and right coronary cineangiograms. PROCEDURE: Ms. Jaramillo is a 62-year-old female who presented with a history of coronary artery disease and recent cardiac catheterization suggesting chronic total occlusion of the mid LAD. On arrival to research lab assistant, she was hemodynamically stable and pain free. Moderate IV conscious sedation was monitored and administered by myself, nursing, and technical staff for a total duration of 30 minutes. The bilateral groins were then prepped and draped in typical fashion. We infiltrated the right groin with approximately 20 mL of 1% lidocaine and advanced a 5-[place] arterial sheath. Selective left and right coronary cineangiograms as well as left heart catheterization were performed utilizing a 5-[place] diagnostic coronary catheter. Intracoronary nitroglycerin was administered [...] There was some faint left-to- left and cwkfq-bt-qtuc collateralization of the apical segment of the [...] second obtuse marginal branch. There was some ziha-vz-erfao collateralization of the posterolateral segment. 5. The [place] right coronary was visualized with a JR4 [...] mid left anterior descending artery with faint fvxb-cg-uycc collaterals. b. 90% mid second obtuse marginal stenosis with a 70% ostial circumflex stenosis. c. 95% proximal posterior lateral stenosis. PLAN: We will consult Cardiothoracic Surgery for evaluation. MD MG Toth/Hakeem /[id number] cc: - ASHLEY BANEGAS * POC GLUCOSE (11/23/2017 9:49 AM) Component Value Ref Range Glucose, POC 272 (H) 70 - 100 MG/DL Specimen Performing Laboratory MAIN LAB [address] [place] [address] * POC GLUCOSE (11/23/2017 8:48 AM) Component Value Ref Range Glucose, POC 297 (H) 70 - 100 MG/DL Specimen Performing Laboratory [facility] [address] [place] [address] * LIPID PROFILE (11/23/2017 8:48 AM) Component [...] Specimen Performing Laboratory Blood MAIN LAB [address] [place] [address] in this encounter Visit Diagnoses Diagnosis Tooth decay Unspecified dental caries Admitting Diagnoses Diagnosis CHRONIC TOTAL OCCLUSION OF LEFT ANTERIOR DESCENDING ARTERY Tooth decay - CAD (coronary artery disease) Unspecified dental caries Administered Medications Medication Order MAR Action Action Date Dose Rate Site acetaminophen (TYLENOL) tablet 650 mg Given 11/23/2017 650 mg 650 mg, Oral, EVERY 4 HOURS PRN, 15:46 CDT Starting Thu11/23/17 at 0825, Until Thu11/25/17 at 1033, Pain [...] Until Discontinued, -POC glucose 140-180mg/dL at , administer 2 units insulin, at 21, [...] 8 units. -POC glucose 351-400mg/dL at , administer 12 units insulin, at 21, [...] , , administer 1 unit insulin, at , 03* administer 0 units. -POC glucose 181-220mg/dL at , , administer 2 units insulin, at , 03* administer 1 unit. -POC glucose 221-260mg/dL at , , administer 3 units insulin, at , 03* administer 2 units. -POC glucose 261-300mg/dL at , administer 4 units insulin, at , 03* administer 3 units. -POC glucose 301-350mg/dL at , , administer 5 units insulin, at , 03* administer 4 units. -POC glucose 351-400mg/dL at , , administer 6 units insulin, at , 03* administer 5 units. -POC glucose >400mg/dL at , administer 7 units insulin, at , 03* administer 6 units. *only if ordered [...] EF is <40%, contact CCL Charge Nurse [phone]) before initiating fluid. sodium chloride 0.9 % [...]
--- OUTSIDE RECORDS SUMMARY | 2017-12-09 01:06 | XMS REPORT | Encounter Summary ---
Author Author [facility] Organization [facility] Address Unknown Phone Unavailable Care Team Providers Care Broadloom Weaver Name Role Phone Deann Parker MD PCP Encounter Details Date Type Department Care Team Description 11/23/2017 Procedure Pass Cardiothor Prgrsv cr [address] [place] [address] Social History Tobacco Use Types Packs/Day Years Used Date Former Smoker Quit: 01/23/2017 Smokeless Tobacco: Never Used Alcohol Use Drinks/Week oz/Week Comments No Sex Assigned at Date Recorded Not on file as of this encounter Plan of Treatment Not on fileas of this encounter Visit Diagnoses Not on filein this encounter
--- OUTSIDE RECORDS SUMMARY | 2017-12-09 01:06 | XMS REPORT | Encounter Summary ---
Author Author [facility] Organization [facility] Address Unknown Phone Unavailable Care Team Providers Care [place] Seamer Name Role Phone Deann Parker MD PCP Encounter Details Date Type Department Care Team Description 11/23/2017 Procedure Pass Cardiac Catheterization Laboratory [address] [place] [address] Social History Tobacco Use Types Packs/Day Years Used Date Former Smoker Quit: 01/23/2017 Smokeless Tobacco: Never Used Alcohol Use Drinks/Week oz/Week Comments No Sex Assigned at Date Recorded Not on file as of this encounter Plan of Treatment Not on fileas of this encounter Visit Diagnoses Not on filein this encounter
--- OUTSIDE RECORDS SUMMARY | 2017-12-09 01:06 | XMS REPORT | Encounter Summary ---
Author Author [facility] Organization [facility] Address Unknown Phone Unavailable Care Team Providers Care Director Loss Prevention Name Role Phone Deann Parker MD PCP Reason for Visit * Auth/Cert (Routine) Status Reason Specialty Diagnoses / Referred By Referred To Procedures Contact Contact Encounter Details Date Type Department Care Team Description 11/23/2017 [facility] Cardiology Italo Russo PA-C Encounter [address] [place] [address] [address] [place] [address] [phone] Social History Tobacco Use Types Packs/Day Years Used Date Former Smoker Quit: 01/23/2017 Smokeless Tobacco: Never Used Alcohol Use Drinks/Week oz/Week Comments No Sex Assigned at Date Recorded Not on file as of this encounter Last Filed Vital Signs Vital Sign Reading Time Taken Blood Pressure 124/65 11/23/2017 2:01 PM CDT Pulse - - Temperature - - Respiratory Rate - - Oxygen Saturation - - Inhaled Oxygen - - Concentration Weight 72 kg (158 lb 11.7 oz) 11/23/2017 2:01 PM CDT Height 157.5 cm (5' 2") 11/23/2017 2:01 PM CDT Body Mass Index 29.03 11/23/2017 2:01 PM CDT in this encounter Medications at Time of [...] artery disease involving three times daily with [place] coronary artery of meals. Plus 0-14 units [place] heart with on sliding scale. unstable angina pectoris (HCC) insulin detemir(+) Inject 26 Units under the 10 mL 12 12/08/2017 (LEVEMIR) 100 unit/mL skin at bedtime daily. solnIndications: Coronary artery disease involving [place] coronary artery of [place] heart with unstable angina pectoris (HCC) lisinopril [...] with food. tabletIndications: Coronary artery disease involving [place] coronary artery of [place] heart with unstable angina pectoris (HCC) traMADol (ULTRAM) 50 mg Take 50 mg by mouth every tablet 6 hours as needed for Pain. amLODIPine (NORVASC) 10 Take 10 mg by mouth 12/08/2017 mg tablet daily. amoxicillin (AMOXIL) 500 Take 500 mg by mouth 11/18/2017 11/25/2017 mg capsule every 12 hours. clopiDOGrel (PLAVIX) 75 Take 75 mg by mouth 11/25/2017 mg tablet daily. furosemide (LASIX) 40 mg Take 40 mg by mouth every 11/25/2017 tablet morning. insulin aspart U-100 Inject 0-14 Units under 45 mL 3 11/25/2017 (NOVOLOG FLEXPEN) 100 the skin before meals and unit/mL injection at bedtime. PENIndications: Coronary artery disease involving [place] coronary artery of [place] heart with unstable angina pectoris (HCC) insulin aspart U-100 Inject 10 Units under the 45 mL 3 11/25/2017 (NOVOLOG FLEXPEN) 100 skin three times daily unit/mL injection with meals. PENIndications: Coronary artery disease involving [place] coronary artery of [place] heart with unstable angina pectoris (HCC) insulin aspart U-100 Inject 0-14 Units under 45 mL 3 11/25/2017 (NOVOLOG FLEXPEN) 100 the skin three times unit/mL injection daily with meals. PENIndications: Coronary artery disease involving [place] coronary artery of [place] heart with unstable angina pectoris (HCC) insulin aspart U-100 Inject 75 Units under the 11/25/2017 (NOVOLOG) 100 unit/mL skin three times daily injection with meals. insulin detemir(+) Inject 35 Units under the 10 mL 12 11/25/2017 (LEVEMIR) 100 unit/mL skin at bedtime daily. solnIndications: Coronary artery disease involving [place] coronary artery of [place] heart with unstable angina pectoris (HCC) insulin detemir(+) Inject 88 Units under the 11/25/2017 (LEVEMIR) 100 unit/mL skin twice daily before soln meals. insulin lispro (HUMALOG Inject 60 Units under the 11/24/2017 PEN SC) skin before meals and at bedtime. isosorbide mononitrate SR Take 30 mg by mouth every 12/08/2017 (IMDUR) 30 mg tablet morning. lisinopril (PRINIVIL; Take 20 mg by mouth 12/08/2017 ZESTRIL) 20 mg tablet daily. metFORMIN (GLUCOPHAGE) Take 1,000 mg by mouth 11/25/2017 1,000 mg tablet twice daily with meals. metoprolol XL (TOPROL XL) Take 100 mg by mouth 12/08/2017 100 mg extended release daily. tablet as of this encounter Plan of Treatment Not on fileas of this encounter Visit Diagnoses Not on filein this encounter Administered Medications Medication Order MAR Action Action Date Dose Rate Site perflutren lipid microspheres (DEFINITY) Given 11/23/2017 2 Diluted mL injection 1-20 Diluted mL 14:02 CDT 1-20 Diluted mL, Intravenous, ONCE, 1 dose, 11/23/17 at 1330, NOTE: This is a HIGH ALERT Medication. in this encounter
--- OUTSIDE RECORDS SUMMARY | 2017-12-09 01:06 | XMS REPORT | Encounter Summary ---
Author Author [facility] Organization [facility] Address Unknown Phone Unavailable Care Team Providers Care Ambulance Assistant Name Role Phone Deann Parker MD PCP Encounter Details Date Type Department Care Team Description 11/23/2017 Prep for Case ADMITTING Dena Gayle DDS Tooth decay ( Primary Dx) [address] [facility]. [address] [place] [address] [address] [place] [address] [phone] Social History Tobacco Use Types Packs/Day Years Used Date Former Smoker Quit: 01/23/2017 Smokeless Tobacco: Never Used Alcohol Use Drinks/Week oz/Week Comments No Sex Assigned at Date Recorded Not on file as of this encounter Plan of Treatment Not on fileas of this encounter Visit Diagnoses Diagnosis Tooth decay - Primary Unspecified dental caries
--- OUTSIDE RECORDS SUMMARY | 2017-12-09 01:06 | XMS REPORT | Encounter Summary ---
Author Author [facility] Organization [facility] Address Unknown Phone Unavailable Care Team Providers Care City Letter Carrier Name Role Phone Deann Parker MD PCP Reason for Visit * Reason Comments New Patient History And Physical same day heart cath * Auth/Cert (Routine) Status Reason Specialty Diagnoses / Referred By Referred To Procedures Contact Contact Encounter Details Date Type Department Care Team Description 11/23/2017 Office Visit [facility] Vinod Cortes MD New Patient; History And [address] Physical (same day heart [address] cath) [place] [address] [place] [address] [phone] Social History Tobacco Use Types Packs/Day Years Used Date Former Smoker Quit: 01/23/2017 Smokeless Tobacco: Never Used Alcohol Use Drinks/Week oz/Week Comments No Sex Assigned at Date Recorded Not on file as of this encounter Last Filed Vital Signs Vital Sign Reading Time Taken Blood Pressure 120/86 11/23/2017 7:22 AM CDT Pulse 81 11/23/2017 7:22 AM CDT Temperature - - Respiratory Rate - - Oxygen Saturation - - Inhaled Oxygen - - Concentration Weight 72.5 kg (159 lb 12.8 oz) 11/23/2017 7:22 AM CDT Height 157.5 cm (5' 2") 11/23/2017 7:22 AM CDT Body Mass Index 29.23 11/23/2017 7:22 AM CDT in this encounter Progress Notes * Vinod Cortes MD - 11/23/2017 7:15 AM CDT Formatting of this note may be different from the original. Date of Service: 11/23/2017 Nimisha Jaramillo is [...] Diagnosis Date Noted Bilateral carotid artery disease ([facility]) 11/17/2017 05/04/17 - Carotid U/S: mild 1-39% stenosis, nonobstructive disease bilaterally. Coronary artery disease involving [place] coronary artery of [place] heart with unstable angina pectoris ([facility]) 11/17/2017 03/05/17 - [facility]: Total occlusion of the mid LAD, balloon angioplasty using 2 different sized balloons. No reestablishment of flow. Appears the artery is diffusely diseased & occluded. Proximal portion has severe disease - balloon angioplasty with slight improvement. Severe disease at mid and distal circumflex - fairly small artery. Patent stent in large dominant RCA. Normal LV , EF 60%, normal LVEDP. 06/16/16 - [facility]: Severe in-stent restenosis in prox and mid [...] small artery. Normal LVEDP. 06/2015 [facility]: 2.5 x 18 mm Resolute Integrity stent to mid circumflex, prox lesion is 40% stenosed, distal lesion 80%. Patent multiple stents in prox, mid, and distal LAD w/ mild in-stent restenosis. Patent stent in RCA w/ mild disease in distal RCA. 05/2015 [facility]: 3.5 x 12 mm & 2.75 x 24 mm Promus Premier overlapping stents to mid RCA. Patent stents in the LAD. Severe stenosis at distal LAD, 70% prox circumflex and 70-80% mid to distal circ/OM branch. [facility]: 2.5 x 24 mm and 2.5 x 20 mm Promusto distal and proximal LAD, 50% prox circumflex, 70-80% mid to distal circumflex involving the proximal portion of OM1, 50-60% mid RCA, LV anterior wall hypokinetic. EF 40%. PAD (peripheral artery disease) ([facility]) 11/17/2017 Essential hypertension 11/17/2017 Mixed hyperlipidemia 11/17/2017 History of tobacco abuse 11/17/2017 Type 2 diabetes mellitus with complication, with long-term current use of insulin ([facility]) 11/17/2017 Review of Systems Constitution: Positive for malaise/fatigue. [...] Diagnoses Name Primary? Coronary artery disease involving [place] coronary artery of [place] heart with unstable angina pectoris (HCC) Yes Type 2 diabetes mellitus with complication, with long-term current use of insulin ([facility]) Assessment and Plan 1. Coronary artery disease -reviewing her recent cardiac [...] 3 tablets, call 911. in this encounter Plan of Treatment Name Priority Associated Diagnoses Order Schedule ECG 12-LEAD Routine Coronary artery disease Ordered: 11/23/2017 involving [place] coronary artery of [place] heart with unstable angina pectoris (HCC) Type 2 diabetes mellitus with complication, with long-term current use of insulin (HCC) as of this encounter Visit Diagnoses Diagnosis Coronary artery disease involving [place] coronary artery of [place] heart with unstable angina pectoris (HCC) - Primary Type 2 diabetes mellitus with complication, with long-term current use of insulin ([facility])
--- OUTSIDE RECORDS SUMMARY | 2017-12-09 01:07 | XMS REPORT | Encounter Summary ---
Author Author [facility] Organization [facility] Address Unknown Phone Unavailable Care Team Providers Care Taxicab Coordinator Name Role Phone PCP Unavailable Reason for Visit * Reason Comments Precertification Medicare Encounter Details Date Type Department Care Team Description 11/16/2017 Documentation [facility] Horace Correa, RN Precertification [address] (Medicare) [facility] [address] [place] [address] Social History Tobacco Use Types Packs/Day Years Used Date Never Assessed Sex Assigned at Date Recorded Not on file as of this encounter Progress Notes * Horace Correa, PORTIA - 11/16/2017 9:37 AM CDT Medicare is listed as patient's primary insurance coverage. Pre-certification is not required for hospitalizations. in this encounter Plan of Treatment Not on fileas of this encounter Visit Diagnoses Not on filein this encounter
--- OUTSIDE RECORDS SUMMARY | 2017-12-09 01:07 | XMS REPORT | Encounter Summary ---
Author Author [facility] Organization [facility] Address Unknown Phone Unavailable Care Team Providers Care Bond Broker Name Role Phone PCP Unavailable Reason for Visit * Reason Comments Procedure AQUATICS INSTRUCTOR - ref by Dr. Hughes Encounter Details Date Type Department Care Team Description 11/12/2017 Telephone [facility] Cardiology Mamie Woodard RN Procedure (AQUATICS INSTRUCTOR - ref by [address]) [address] [place] [address] Social History Tobacco Use Types Packs/Day Years Used Date Never Assessed Sex Assigned at Date Recorded Not on file as of this encounter Miscellaneous Notes * Telephone Encounter - Mamie Woodard RN - 11/12/2017 6:27 PM CDT Cath images received on CD from Dr. Hughes's office. Discussed plan with Dr. Cortes. Ruth to proceed with scheduling pt for AQUATICS INSTRUCTOR attempt. Connected with patient and aria over the phone. Scheduling pt on Thursday, . New patient H&P with Dr. Cortes will be at 7:15 AM and cath to follow same day. Cath reservation form faxed. We will connect with pt and Ritesh knapp, on Thursday to review pre-procedure instructions. * Telephone Encounter - Mamie Woodard RN - 11/12/2017 6:25 PM CDT ----- Message from Mamie Woodard RN sent at 11/05/2017 7:41 AM CDT ----- Regarding: AQUATICS INSTRUCTOR LAD - ref by Dr. Ellen Jovel mailing cath images on CD. Schedule pt for same day H&P with AQUATICS INSTRUCTOR LAD, [facility]. Sent e-mail to Horace to review insurance info. in this encounter Plan of Treatment Not on fileas of this encounter Visit Diagnoses Not on filein this encounter
--- OUTSIDE RECORDS SUMMARY | 2017-12-09 01:07 | XMS REPORT | Encounter Summary ---
Author Author [facility] Organization [facility] Address Unknown Phone Unavailable Care Team Providers Care Executive Vp Name Role Phone Ashley Banegas MD PCP Reason for Visit * Auth/Cert (Routine) Status Reason Specialty Diagnoses / Referred By Referred To Procedures Contact Contact Encounter Details Date Type Department Care Team Description 11/23/2017 Surgery Cardiac Catheterization Arnulfo Cortes MD PERCUTANEOUS CORONARY Laboratory [address] [facility] ATHERECTOMY/ STENT [address] [facility] [address] PLACEMENT/ [place] [address] [place] [address] CHRONIC TOTAL OCCLUSION [phone] OF LEFT ANTERIOR DESCENDING ARTERY Social History Tobacco Use Types Packs/Day Years [...] History: Diagnosis Date Bilateral carotid artery disease ([facility]) 11/17/2017 05/04/17 - Carotid U/S: mild 1-39% stenosis, nonobstructive disease bilaterally. Coronary artery disease involving emmonak coronary artery of emmonak heart with unstable angina pectoris ([facility]) 11/17/2017 03/04/17 - LHC: Total occlusion of [...] Mixed hyperlipidemia 11/17/2017 PAD (peripheral artery disease) ([facility]) 11/17/2017 Type 2 diabetes mellitus with complication, with long-term current use of insulin ([facility]) 11/17/2017 Allergies: Fish containing products; Ketoprofen; and [...] extraction on 11/11 and recent insulin adjustment. 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 The special education paraeducator also met with the patient and her [...] 97-144. She will resume Metformin at the PLANT NURSERY WORKER dose, only when she is eating regular [...] She has been on Lasix 40mg daily PLANT NURSERY WORKER but was instructed to stop this and [...] Active Problems * (Principal)Coronary artery disease involving emmonak coronary artery of emmonak heart with unstable angina pectoris (HCC) Essential [...] There was some faint left-to- left and dnzib-vf-sisx collateralization of the apical segment of the [...] second obtuse marginal branch. There was some qxye-qv-nhstt collateralization of the posterolateral segment. 5. The emmonak right coronary was visualized with a JR4 [...] HOURS (8:00 AM - 4:30 PM): Call [phone] and asked to be transferred to your discharge attending physician. - AFTER BUSINESS HOURS (4:30 PM - 8:00 AM, on weekends, or holidays): Call [phone] and ask the carpet yarn winder operator to page the on-call doctor for the discharge attending physician. Discharging attending physician: ARNULFO CORTES [[id number]] Cardiac Diet Limiting unhealthy fats and cholesterol [...] home, you can call a dietitian at [phone]. Incision Care *Call if there is an increase in pain, swelling, or redness in your right groin or your gums. Take Tylenol for pain. *DO NOT soak groin incision in water. *NO tub baths, hot tubs, or swimming. *You may shower after discharge. [facility] Information [facility] is a gathering place for individuals, families, and friends living with serious or chronic physical illness. They offer education and support programs that help you live your life to the fullest. Unless otherwise noted, programs are offered at NO CHARGE. However, REGISTRATION IS REQUIRED 48 hours in advance. To arrange for a tour, register for a class, or ask a questions please call [phone]. You can also visit [email or web address] for more information. Current Discharge Medication List START taking these medications Details spironolactone (ALDACTONE) 25 mg tablet Take 0.5 tablets by mouth daily. Take with food. Qty: 15 tablet, Refills: 5 PRESCRIPTION TYPE: Normal Associated Diagnoses: Coronary artery disease involving emmonak coronary artery of emmonak heart with unstable angina pectoris (HCC) CONTINUE these medications which have been CHANGED or REFILLED Details !! insulin aspart U-100 (NOVOLOG FLEXPEN) 100 unit/mL injection PEN Inject 10 Units under the skin three times daily with meals. Qty: 45 mL, Refills: 3 PRESCRIPTION TYPE: No Print Associated Diagnoses: Coronary artery disease involving emmonak coronary artery of emmonak heart with unstable angina pectoris (HCC) !! insulin aspart U-100 (NOVOLOG FLEXPEN) 100 unit/mL injection PEN Inject 0-14 Units under the skin three times daily with meals. Qty: 45 mL, Refills: 3 PRESCRIPTION TYPE: Normal Associated Diagnoses: Coronary artery disease involving emmonak coronary artery of emmonak heart with unstable angina pectoris (HCC) insulin detemir(+) (LEVEMIR) 100 unit/mL soln Inject 35 Units under the skin at bedtime daily. Qty: 10 mL, Refills: 12 PRESCRIPTION TYPE: No Print Associated Diagnoses: Coronary artery disease involving emmonak coronary artery of emmonak heart with unstable angina pectoris (HCC) !! [...] 2017 2:00 PM CDT Pre-Op Nurse with [facility] ([facility]) [address] [facility] [address] December 01, 2017 2:30 PM CDT PAC Office Visit with PAC ROOM 6 Preoperative Assessment Clinic (--) [address] [facility] [address] Pending items needing follow up: as above [...] minutes Novolog is in the [place]. If your pre meal Blood sugar [...] artery disease involving three times daily with emmonak coronary artery of meals. Plus 0-14 units emmonak heart with on sliding scale. unstable angina pectoris (HCC) insulin detemir(+) Inject 26 Units under the 10 mL 12 12/08/2017 (LEVEMIR) 100 unit/mL skin at bedtime daily. solnIndications: Coronary artery disease involving emmonak coronary artery of emmonak heart with unstable angina pectoris (HCC) lisinopril [...] with food. tabletIndications: Coronary artery disease involving emmonak coronary artery of emmonak heart with unstable angina pectoris (HCC) traMADol (ULTRAM) 50 mg Take 50 mg by mouth every tablet 6 hours as needed for Pain. amLODIPine (NORVASC) 10 Take 10 mg by mouth 12/08/2017 mg tablet daily. insulin aspart U-100 Inject 10 Units under the 45 mL 3 11/25/2017 (NOVOLOG FLEXPEN) 100 skin three times daily unit/mL injection with meals. PENIndications: Coronary artery disease involving emmonak coronary artery of emmonak heart with unstable angina pectoris (HCC) insulin aspart U-100 Inject 0-14 Units under 45 mL 3 11/25/2017 (NOVOLOG FLEXPEN) 100 the skin three times unit/mL injection daily with meals. PENIndications: Coronary artery disease involving emmonak coronary artery of emmonak heart with unstable angina pectoris (HCC) insulin detemir(+) Inject 35 Units under the 10 mL 12 11/25/2017 (LEVEMIR) 100 unit/mL skin at bedtime daily. solnIndications: Coronary artery disease involving emmonak coronary artery of emmonak heart with unstable angina pectoris (HCC) isosorbide [...] recently updated. Dena Gayle DDS, PhD Pager [phone] * Jennifer Elkins RN - 11/24/2017 12:04 [...] and provide further information. Italo Russo PA-C [id number] Associated attestation - Kenny Enrique MD - [...] Warren RN - 11/24/2017 10:09 AM CDT [id number]: Phone report given to Caroline PEARCE regarding pt to transfer care to [phone]. * Corrie Fuentes PA-C - 11/24/2017 8:21 AM CDT Formatting of this note may be different from the original. 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 Dental Caries -Panorex xray 11/23/17 revealed erosions or caries involving the remaining maxillary teeth, sparing the residual left maxillary molar. Thin rind of lucency surrounding the right mandibular canine tooth, likely due to periodontal disease/gingivitis. 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 Dr. Cortes consulted CTS for evaluation for surgical revascularization after [facility] today revealed severe, multivessel CAD in [...] Reoperation: 3.351% CATH FINDINGS: Coronary Stenosis LAD--> SUPPLY CHAIN BUSINESS ANALYST Diag--> 80% proximal OM --> 70% ostial, 90% mid RCA--> 95% distal PMH: Past Medical History: Diagnosis Date Bilateral carotid artery disease ([facility]) 11/17/2017 05/04/17 - Carotid U/S: mild 1-39% stenosis, nonobstructive disease bilaterally. Coronary artery disease involving emmonak coronary artery of emmonak heart with unstable angina pectoris ([facility]) 11/17/2017 03/04/17 - LHC: Total occlusion of [...] Mixed hyperlipidemia 11/17/2017 PAD (peripheral artery disease) ([facility]) 11/17/2017 Type 2 diabetes mellitus with complication, with long-term current use of insulin ([facility]) 11/17/2017 PSH: Past Surgical History: Procedure Laterality [...] Hospital Problems Diagnosis Coronary artery disease involving emmonak coronary artery of emmonak heart with unstable angina pectoris (HCC) 03/05/17 - [facility]: Total occlusion of the mid LAD, [...] fairly small artery. Normal LVEDP. 06/2015 - [facility]: 2.5 x 18 mm Resolute Integrity stent to mid circumflex, prox lesion is 40% stenosed, distal lesion 80%. Patent multiple stents in prox, mid, and distal LAD w/ mild in-stent restenosis. Patent stent in RCA w/ mild disease in distal RCA. 05/2015 [facility]: 3.5 x 12 mm & 2.75 x 24 mm Promus Premier overlapping stents to mid RCA. Patent stents in the LAD. Severe stenosis at distal LAD, 70% prox circumflex and 70-80% mid to distal circ/OM branch. [facility]: 2.5 x 24 mm and 2.5 [...] re-operation, prolonged intubation, ARF requiring hemodialysis, CVA, [place], and possibly even . The patient understands, [...] of arrival for Thursday. Italo Russo PA-C [id number] Associated attestation - Kenny Enrique MD - [...] from date of service 11/23/2017. ALENA Richards ([id number]) Progress Notes Arnulfo Cortes MD (Physician) Cardiology [...] Diagnosis Date Noted Bilateral carotid artery disease ([facility]) 11/17/2017 05/04/17 - Carotid U/S: mild 1-39% stenosis, nonobstructive disease bilaterally. Coronary artery disease involving emmonak coronary artery of emmonak heart with unstable angina pectoris ([facility]) 11/17/2017 03/05/17 - [facility]: Total occlusion of the mid LAD, balloon angioplasty using 2 different sized balloons. No reestablishment of flow. Appears the artery is diffusely diseased & occluded. Proximal portion has severe disease - balloon angioplasty with slight improvement. Severe disease at mid and distal circumflex - fairly small artery. Patent stent in large dominant RCA. Normal LV , EF 60%, normal LVEDP. 06/16/16 - [facility]: Severe in-stent restenosis in prox and [...] fairly small artery. Normal LVEDP. 06/2015 - [facility]: 2.5 x 18 mm Resolute Integrity stent to mid circumflex, prox lesion is 40% stenosed, distal lesion 80%. Patent multiple stents in prox, mid, and distal LAD w/ mild in-stent restenosis. Patent stent in RCA w/ mild disease in distal RCA. 05/2015 - [facility]: 3.5 x 12 mm & 2.75 x 24 mm Promus Premier overlapping stents to mid RCA. Patent stents in the LAD. Severe stenosis at distal LAD, 70% prox circumflex and 70-80% mid to distal circ/OM branch. - [facility]: 2.5 x 24 mm and 2.5 x 20 mm Promusto distal and proximal LAD, 50% prox circumflex, 70-80% mid to distal circumflex involving the proximal portion of OM1, 50-60% mid RCA, LV anterior wall hypokinetic. EF 40%. PAD (peripheral artery disease) ([facility]) 11/17/2017 Essential hypertension 11/17/2017 Mixed hyperlipidemia 11/17/2017 History of tobacco abuse 11/17/2017 Type 2 diabetes mellitus with complication, with long-term current use of insulin ([facility]) 11/17/2017 Past Surgical History: Procedure Laterality Date [...] Diagnoses Name Primary? Coronary artery disease involving emmonak coronary artery of emmonak heart with unstable angina pectoris (HCC) Yes Type 2 diabetes mellitus with complication, with long-term current use of insulin ([facility]) Assessment and Plan Coronary artery disease -reviewing [...] AM CDT Associated Order(s): CARDIAC CATH REPORT [facility] at [facility] CARDIAC CATHETERIZATION REPORT Page 2 NIMISHA Condon : 1955 #: [id number] MR #/Billing ID #: [id number] / [id number] DATE: 11/23/2017 LEAD HOUSEKEEPER: Arnulfo Cortes MD DICTATING PROVIDER: Arnulfo Cortes MD REFERRING PHYSICIAN: ASHLEY BANEGAS PROCEDURES PERFORMED: 1. Left heart catheterization. 2. Selective left and right coronary cineangiograms. PROCEDURE: Ms. Jaramillo is a 62-year-old female who presented with a history of coronary artery disease and recent cardiac catheterization suggesting chronic total occlusion of the mid LAD. 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 Moderate IV conscious sedation was monitored and administered by myself, nursing, and technical staff for a total duration of 30 minutes. The bilateral groins were then prepped and draped in typical fashion. We infiltrated the right groin with approximately 20 mL of 1% lidocaine and advanced a 5-Romanian arterial sheath. Selective left and right coronary cineangiograms as well as left heart catheterization were performed utilizing a 5-Romanian diagnostic coronary catheter. Intracoronary nitroglycerin was administered [...] There was some faint left-to- left and okyyn-vy-urut collateralization of the apical segment of the [...] second obtuse marginal branch. There was some dyvx-gs-bukpr collateralization of the posterolateral segment. 5. The emmonak right coronary was visualized with a JR4 [...] mid left anterior descending artery with faint ouxh-vq-krah collaterals. b. 90% mid second obtuse marginal stenosis with a 70% ostial circumflex stenosis. c. 95% proximal posterior lateral stenosis. PLAN: We will consult Cardiothoracic Surgery for evaluation. MD MG Toth/Hakeem /[id number] cc: - ASHLEY BANEGAS in this encounter Consult Notes * Dena Gayle DDS - 11/24/2017 5:25 PM CDT Associated Order(s): CONSULT DENTAL Dental Consult Reason for Consult having coronary bypass surgery on Monday 11/27. Had 6 teeth pulled / for infection, needs more pulled-elevating blood sugars [...] this consult Dena Gayle DDS, PHD Pager [phone] * Jennifer Oshea, PORTIA - 11/24/2017 1:44 PM CDT Associated Order(s): CONSULT DIABETES NURSE EDUCATOR Formatting of this note may be different from the original. INPATIENT DIABETES EDUCATION TEAM Clinical Excellence Nursing Practice Reason for Consult: Other (Comment) Order comments: Poorly managed diabetes at home. Changing regimen Discussed Consult with Primary Team: Dr. Gutierrez, Supervisor Farm Equipment Maintenance, Aneta, bedside RN Patient may benefit from: referral to [facility] for Diabetes Education, Therapeutic Strategy Lead to cover carb controlled/heart healthy diet, and [...] bedside. 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 Her [...] minutes Novolog is in the [place]. If your pre meal Blood sugar [...] - Diabetes Education Nursing Clinical Excellence [facility] [email or web address] [phone] office [phone] pager * Terrance Mack MD - 11/24/2017 11:12 AM CDT Associated Order(s): CONSULT ENDOCRINOLOGY PHYSICIAN Formatting of this note may be different from the original. 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 We will request special education paraeducator to come and talk to patient about [...] History: Diagnosis Date Bilateral carotid artery disease ([facility]) 11/17/2017 05/04/17 - Carotid U/S: mild 1-39% stenosis, nonobstructive disease bilaterally. Coronary artery disease involving emmonak coronary artery of emmonak heart with unstable angina pectoris ([facility]) 11/17/2017 03/04/17 - [facility]: Total occlusion of the mid LAD, [...] Mixed hyperlipidemia 11/17/2017 PAD (peripheral artery disease) ([facility]) 11/17/2017 Type 2 diabetes mellitus with complication, with long-term current use of insulin ([facility]) 11/17/2017 Past Surgical History Past Surgical History: [...] clubbing, cyanosis or edema Skin: no rashes/lesions PERFORMING ARTS ROAD MANAGER: Grossly nonfocal Lab Review Point of Care Testing (Last 24 hours) Glucose: (!) 254 (11/24/17 0416) POC Glucose (Download): (!) 333 (11/24/17 1041) Recent Labs 11/23/17 1132 11/24/17 0416 NA -- 136* K -- 3.8 CL [...] FREET4, FREEINDEX No results found for: FREET3, [id number], THYBINDGLB Eugenia Gutierrez MD Endocrinology Fellow PGY-5 [...] of a resident. Dena Gayle DDS Pager [phone] * Care Plan - Aneta Goodson - [...] CDT procedure are in the results section. CONSULT IV THERAPY TEAM STAT 11/23/2017 8:47 [...] MG/DL Specimen Performing Laboratory [facility] [address] [place] [id number] * BASIC METABOLIC PANEL (11/25/2017 4:07 AM) [...] Pharmacist for questions. Specimen Performing Laboratory Blood [facility] [address] [place] [id number] * POC GLUCOSE (11/24/2017 9:33 PM) Component Value Ref Range Glucose, POC 131 (H) 70 - 100 MG/DL Specimen Performing Laboratory [facility] [address] [place] [address] * POC GLUCOSE (11/24/2017 6:36 PM) Component Value Ref Range Glucose, POC 97 70 - 100 MG/DL Specimen Performing Laboratory [facility] [address] [place] [address] * POC GLUCOSE (11/24/2017 5:23 PM) Component Value Ref Range Glucose, POC 105 (H) 70 - 100 MG/DL Specimen Performing Laboratory [facility] [address] [place] [address] * POC GLUCOSE (11/24/2017 5:10 PM) Component Value Ref Range Glucose, POC 119 (H) 70 - 100 MG/DL Specimen Performing Laboratory [facility] [address] [place] [address] * POC GLUCOSE (11/24/2017 12:19 PM) Component Value Ref Range Glucose, POC 318 (H) 70 - 100 MG/DL Specimen Performing Laboratory [facility] [address] [place] [address] * POC GLUCOSE (11/24/2017 10:41 AM) Component Value Ref Range Glucose, POC 333 (H) 70 - 100 MG/DL Specimen Performing Laboratory MAIN LAB [address] [place] [address] * POC GLUCOSE (11/24/2017 7:57 AM) Component Value Ref Range Glucose, POC 222 (H) 70 - 100 MG/DL Specimen Performing Laboratory MAIN [facility] [address] [place] [address] * MAGNESIUM (11/24/2017 4:16 AM) Component Value Ref Range Magnesium 1.8 1.6 - 2.6 mg/dL Specimen Performing Laboratory Blood [facility] [address] [place] [address] * CBC (11/24/2017 4:16 AM) Component Value [...] [place] Specimen Performing Laboratory Blood [facility] [address] [place] [address] * BASIC METABOLIC PANEL (11/24/2017 4:16 AM) [...] Performing Laboratory Blood [facility] [address] [place] [address] * POC GLUCOSE (11/24/2017 1:17 AM) Component Value Ref Range Glucose, POC 212 (H) 70 - 100 MG/DL Specimen Performing Laboratory [facility] [address] [place] [address] * MRA HEAD WO CONTRAST (11/23/2017 9:39 [...] 62 years old, intracranial aneurysm. TECHNIQUE: 3D widf-of-excmfghusmtz of the [place] was performed without contrast. MRA [...] 62 years old, intracranial aneurysm. TECHNIQUE: 3D xeth-ig-qrpppt images of the [place] was performed without contrast. MRA [...] 70 - 100 MG/DL Specimen Performing Laboratory [facility] [address] [place] [address] * POC GLUCOSE (11/23/2017 5:09 PM) Component Value Ref Range Glucose, POC 322 (H) 70 - 100 MG/DL Specimen Performing Laboratory [facility] [address] [place] [address] * CULTURE-URINE W/SENSITIVITY (11/23/2017 2:52 PM) Component Value Ref Range Battery Name URINE CULTURE Specimen Description URINE Special Requests NONE Culture <10,000 organisms/ml MIXED CONTAMINANTS Report Status FINAL 11/24/2017 Specimen Performing Laboratory Urine [facility] [address] [place] [address] * URINALYSIS MICROSCOPIC REFLEX TO CULTURE (11/23/2017 2:52 PM) Component Value Ref Range WBCs,UA PACKED 0 - 2 /HPF RBCs,UA 2-10 0 - 3 /HPF Comment,UA Urine submitted for reflex culture if criteria are met:WBC>10, positive nitrite and/or >=1+ leukocyte esterase. If quantity is not sufficient, an addendum will follow. MucousUA TRACE Squamous Epithelial Cells 2-5 0 - 5 Specimen Performing Laboratory Urine [facility] [address] [place] [address] * URINALYSIS DIPSTICK REFLEX TO CULTURE (11/23/2017 2:52 PM) Component Value Ref Range Color,UA YELLOW Turbidity,UA CLEAR CLEAR-CLEAR Specific Ulysses-Urine 1.050 (H) 1.003 - 1.035 pH,UA 5.0 5.0 - 8.0 Protein,UA NEG NEG-NEG Glucose,UA 3+ (A) NEG-NEG Ketones,UA NEG NEG-NEG Bilirubin,UA NEG NEG-NEG Blood,UA 1+ (A) NEG-NEG Urobilinogen,UA NORMAL NORM-NORMAL Nitrite,UA NEG NEG-NEG Leukocytes,UA 3+ (A) NEG-NEG Urine Ascorbic Acid, UA NEG NEG-NEG Specimen Performing Laboratory Urine [facility] [address] [place] [address] * PANOREX EXAM (11/23/2017 2:41 PM) Specimen [...] history: pre-op eval. Coronary artery disease involving emmonak coronary artery of emmonak heart with unstable angina pectoralis Comparison: None. . Findings: The heart size and pulmonary vascularity are within normal limits. The lungs are clear. No consolidation or pleural effusion is identified. Surgical clips overlie the right upper quadrant of the abdomen. . Procedure Note Interface, Radiant Results - 11/23/2017 2:49 PM CDT CHEST 2 VIEWS . Clinical history: pre-op eval. Coronary artery disease involving emmonak coronary artery of emmonak heart with unstable angina pectoralis Comparison: None. [...] 0.57 E/E' ratio 11.29 CV ECHO PV RADIO TIME BUYER STEVEN Flowers LV mass 203.43 66 - 150 g RWT 0.53 <=0.42 Cardiology Ultrasound Siemens [id number] Machine Left Ventricle Mass Index 114.93 44 [...] % FEV1-Pre 1.94 L FEV1-%Pred-Pre 83 % [id number] 2.73 L/sec YAQ2823-%Pred-Pre 128 % VCSVC-Pre 2.44 L ICSVC-Pre 0.83 [...] ml/min/mmHg/L DLVA-#SD -0.516 ml/min/mmHg/L Specimen Performing Laboratory [facility] [address] [place] [address] Narrative Clinical history:->pre-op eval Is this a pre-surgical evaluation?->Yes * POC GLUCOSE (11/23/2017 1:53 PM) Component Value Ref Range Glucose, POC 194 (H) 70 - 100 MG/DL Specimen Performing Laboratory [facility] [address] [place] [address] * TYPE & SCREEN (NOT CROSSMATCH ELIGIBLE) (11/23/2017 12:50 PM) Component Value Ref Range ABO/RH(D) A POS Antibody Screen NEG Blood Component Type RED CELL GROUP Specimen Performing Laboratory Blood, venous - Blood [facility] [address] [place] [address] * PLAVIX RESISTANCE (PLATELETWORKS) (11/23/2017 12:18 PM) Component Value Ref Range Platelet Inhibition 3 0 - 15 % Comment: Normal ADP inhibition should be less than 15%. Therapeutic (Plavix and other P2Y 12) levels should be greater than 30%. Specimen Performing Laboratory Blood MAIN LAB [address] [place] [address] * HEMOGLOBIN A1C (11/23/2017 11:32 AM) Component Value Ref Range Hemoglobin A1C 10.4 (H) 4.0 - 6.0 % Comment: The ADA recommends that most patients with type 1 and type 2 diabetes maintain an A1c level <7%. Specimen Performing Laboratory Blood MAIN LAB [address] [place] [address] * PTT (APTT) (11/23/2017 11:32 AM) Component Value Ref Range APTT 25.0 21.0 - 39.0 SEC Specimen Performing Laboratory Blood MAIN LAB [address] [place], [place] [id number] * PROTIME INR (PT) (11/23/2017 11:32 AM) Component Value Ref Range INR 1.0 0.8 - 1.2 Specimen Performing Laboratory Blood MAIN LAB [address] [place] [address] * BNP (B-TYPE NATRIURETIC PEPTI) (11/23/2017 11:32 AM) Component Value Ref Range B Type Natriuretic 345.0 (H) 0 - 100 PG/ML Peptide Specimen Performing Laboratory Blood MAIN LAB [address] [place] [address] * POC GLUCOSE (11/23/2017 11:29 AM) Component Value Ref Range Glucose, POC 219 (H) 70 - 100 MG/DL Specimen Performing Laboratory [facility] [address] [place] [address] * CARDIAC CATH REPORT (11/23/2017 11:10 AM) Specimen Performing Laboratory OTHER OUTSIDE LAB Procedure Note Arnulfo Cortes MD - 11/23/2017 11:10 AM CDT [facility] CARDIAC CATHETERIZATION REPORT Page 2 NIMISHA Condon : 1955 [facility]#: [id number] MR #/Billing ID #: [id number] / [id number] DATE: 11/23/2017 LEAD HOUSEKEEPER: Arnulfo Cortes MD DICTATING PROVIDER: Arnulfo Cortes MD REFERRING PHYSICIAN: ASHLEY BANEGAS PROCEDURES PERFORMED: 1. Left heart catheterization. 2. Selective left and right coronary cineangiograms. PROCEDURE: Ms. Jaramillo is a 62-year-old female who presented with a history of coronary artery disease and recent cardiac catheterization suggesting chronic total occlusion of the mid LAD. 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 Moderate IV conscious sedation was monitored and administered by myself, nursing, and technical staff for a total duration of 30 minutes. The bilateral groins were then prepped and draped in typical fashion. We infiltrated the right groin with approximately 20 mL of 1% lidocaine and advanced a 5-Romanian arterial sheath. Selective left and right coronary cineangiograms as well as left heart catheterization were performed utilizing a 5-Romanian diagnostic coronary catheter. Intracoronary nitroglycerin was administered [...] There was some faint left-to- left and qoxda-ew-asfl collateralization of the apical segment of the [...] second obtuse marginal branch. There was some ushy-ob-uzuor collateralization of the posterolateral segment. 5. The [place] right coronary was visualized with a JR4 [...] mid left anterior descending artery with faint dpnr-hu-hdyz collaterals. b. 90% mid second obtuse marginal stenosis with a 70% ostial circumflex stenosis. c. 95% proximal posterior lateral stenosis. PLAN: We will consult Cardiothoracic Surgery for evaluation. MD MG Toth/Hakeem /[id number] cc: - ASHLEY BANEGAS * POC GLUCOSE (11/23/2017 9:49 AM) Component Value Ref Range Glucose, POC 272 (H) 70 - 100 MG/DL Specimen Performing Laboratory MAIN LAB [address] [place] [address] * POC GLUCOSE (11/23/2017 8:48 AM) Component Value Ref Range Glucose, POC 297 (H) 70 - 100 MG/DL Specimen Performing Laboratory MAIN LAB [address] [place] [address] * LIPID PROFILE (11/23/2017 8:48 AM) Component [...] Performing Laboratory Blood [facility] MAIN [facility] [address] [place] [address] in this encounter Visit Diagnoses Not on filein this encounter Admitting Diagnoses Diagnosis CHRONIC TOTAL OCCLUSION OF [...] 181-220mg/dL at administer 4 units insulin, at , 03* administer 2 units. -POC glucose 221-260mg/dL at administer 6 units insulin, at , 03* administer 4 units. -POC glucose 261-300mg/dL at administer 8 units insulin, at , 03* administer 6 units. -POC glucose 301-350mg/dL at administer 10 units insulin, at 21, 03* administer 8 units. -POC glucose 351-400mg/dL at administer 12 units insulin, at , 03* administer 10 units. -POC glucose >400mg/dL at administer 14 units insulin, at , 03* [...] , administer 2 units insulin, at , * administer 1 unit. -POC glucose 221-260mg/dL at , , administer 3 units insulin, at , * administer 2 units. -POC glucose 261-300mg/dL at , administer 4 units insulin, at , * administer 3 units. -POC glucose 301-350mg/dL at , , administer 5 units insulin, at , * administer 4 units. -POC glucose 351-400mg/dL at , administer 6 units insulin, at , * administer 5 units. -POC glucose >400mg/dL at , , administer 7 units insulin, at , * administer 6 units. *only if ordered 5x's [...] EF is <40%, contact CCL Charge Nurse [phone]) before initiating fluid. sodium chloride 0.9 % infusion Given - New 11/24/2017 1,000 mL 20 mL/ hr 1,000 [...]
--- OUTSIDE RECORDS SUMMARY | 2017-12-09 01:07 | XMS REPORT | Encounter Summary ---
Author Author [facility] Organization [facility] Address Unknown Phone Unavailable Care Team Providers Care Surgical Nurse Name Role Phone PCP Unavailable Reason for Visit * Reason Comments Labs Only CBC/BMP Encounter Details Date Type Department Care Team Description 11/18/2017 Documentation [facility] Mamie Woodard, [place] Labs Only (CBC/BMP ) [address] [facility] [address] [place] [address] Social History Tobacco Use Types Packs/Day Years Used Date Never Assessed Sex Assigned at Date Recorded Not on file as of this encounter Plan of Treatment Not on fileas of this encounter Results * CBC (11/18/2017) Component Value Ref Range White Blood Cells 6.01 RBC 4.49 Hemoglobin 13.4 Hematocrit 39.3 MCV 87.5 MCH 29.8 MCHC 34.1 Platelet Count 176 MPV RDW 13.2 Specimen Performing Laboratory Blood MAG [facility] [address] [address] * BASIC METABOLIC PANEL (11/18/2017) Component Value Ref Range Sodium 139 Potassium 3.9 Chloride 104 CO2 25.0 Blood Urea Nitrogen 10 Creatinine 0.6 Glucose 276 (H) Calcium 9.0 eGFR Non 100 eGFR Anion Gap 14 Specimen Performing Laboratory Blood MAG [facility] [address] [address] in this encounter Visit Diagnoses Diagnosis Coronary artery disease involving [place] coronary artery of [place] heart with unstable angina pectoris (HCC) Pre-procedure lab exam Pre-procedural laboratory examination
[2017-12-09] MEDS ORDERED: RT-ALBUTEROL/IPRATROPIUM 3 ML (DUONEB) VIAL INH ONE (01:15)
--- OUTSIDE RECORDS SUMMARY | 2017-12-09 01:15 | XMS REPORT | Continuity of Care Document ---
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 Ot L97.512 NON-PRS CHRONIC ULCER OTH PRT RIGHT FOOT 08/06/2017 LAURA ALBA APRN Ot E11.65 TYPE 2 DIABETES MELLITUS WITH HYPERGLYCE 08/06/2017 LAURA ALBA APRN Ot E78.00 PURE HYPERCHOLESTEROLEMIA, UNSPECIFIED 08/06/2017 LAURA ALBA APRN Ot F12.10 CANNABIS ABUSE, UNCOMPLICATED 08/06/2017 LAURA ALBA APRN Ot F41.9 ANXIETY DISORDER, UNSPECIFIED 08/06/2017 LAURA ALBA APRN Ot I10 ESSENTIAL (PRIMARY) HYPERTENSION 08/06/2017 LAURA ALBA APRN Ot I25.10 ATHSCL HEART DISEASE OF [place] CORONARY 08/06/2017 LAURA ALBA APRN Ot I25.2 OLD MYOCARDIAL INFARCTION 08/06/2017 LAURA ALBA APRN Ot J44.9 CHRONIC OBSTRUCTIVE PULMONARY DISEASE, U 08/06/2017 LAURA ALBA APRN Ot K21.9 GASTRO-ESOPHAGEAL REFLUX DISEASE WITHOUT 08/06/2017 LAURA ALBA APRN Ot N39.0 URINARY TRACT INFECTION, SITE NOT SPECIF 08/06/2017 LAURA ALBA APRN Ot R53.1 WEAKNESS 08/06/2017 LAURA ALBA APRN Ot Z79.4 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 OF INSULIN 08/06/2017 LAURA ALBA APRN Ot Z79.82 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 OF ASPIRIN 08/06/2017 LAURA ALBA APRN Ot Z80.0 FAMILY HISTORY OF MALIGNANT NEOPLASM OF 08/06/2017 LAURA ALBA APRN Ot Z82.49 FAMILY HX OF ISCHEM HEART DIS AND OTH DI 08/06/2017 LAURA ALBA APRN Ot Z85.41 PERSONAL HISTORY OF MALIGNANT NEOPLASM O 08/06/2017 LAURA ALBA APRN Ot Z86.73 PRSNL HX OF TIA (TIA), AND CEREB INFRC W 08/06/2017 LAURA ALBA APRN Ot Z87.19 PERSONAL HISTORY OF OTHER DISEASES OF TH 08/06/2017 LAURA ALBA APRN Ot Z87.59 PERSONAL HISTORY OF COMP OF PREG, CHLDBR 08/06/2017 LAURA ALBA APRN Ot Z87.891 PERSONAL HISTORY OF NICOTINE DEPENDENCE 08/06/2017 LAURA ALBA APRN Ot Z90.89 ACQUIRED ABSENCE OF OTHER ORGANS 08/06/2017 LAURA ALBA APRN Ot Z95.5 PRESENCE OF CORONARY ANGIOPLASTY IMPLANT 08/06/2017 LAURA ALBA APRN Ot Z98.51 TUBAL LIGATION STATUS 08/10/2017 LAURA ALBA APRN Ot E11.65 TYPE 2 DIABETES MELLITUS WITH HYPERGLYCE 08/10/2017 LAURA ALBA APRN Ot E78.00 PURE HYPERCHOLESTEROLEMIA, UNSPECIFIED 08/10/2017 LAURA ALBA APRN Ot F12.10 CANNABIS ABUSE, UNCOMPLICATED 08/10/2017 LAURA ALBA APRN Ot F41.9 ANXIETY DISORDER, UNSPECIFIED 08/10/2017 LAURA ALBA APRN Ot I10 ESSENTIAL (PRIMARY) HYPERTENSION 08/10/2017 LAURA ALBA APRN Ot I25.10 ATHSCL HEART DISEASE OF [place] CORONARY 08/10/2017 LAURA ALBA APRN Ot I25.2 OLD MYOCARDIAL INFARCTION 08/10/2017 LAURA ALBA APRN Ot J44.9 CHRONIC OBSTRUCTIVE PULMONARY DISEASE, U 08/10/2017 LAURA ALBA APRN Ot K21.9 GASTRO-ESOPHAGEAL REFLUX DISEASE WITHOUT 08/10/2017 LAURA ALBA APRN Ot N39.0 URINARY TRACT INFECTION, SITE NOT SPECIF 08/10/2017 LAURA ALBA APRN Ot R53.1 WEAKNESS 08/10/2017 LAURA ALBA APRN Ot Z79.4 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 OF INSULIN 08/10/2017 LAURA ALBA APRN Ot Z79.82 [facility] (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 OF ASPIRIN 08/10/2017 LAURA ALBA APRN Ot Z80.0 FAMILY HISTORY OF MALIGNANT NEOPLASM OF 08/10/2017 LAURA ALBA APRN, Ot Z82.49 FAMILY HX OF ISCHEM HEART DIS AND OTH DI 08/10/2017 LAURA ALBA APRN Ot Z85.41 PERSONAL HISTORY OF MALIGNANT NEOPLASM O 08/10/2017 LAURA ALBA APRN, Ot Z86.73 PRSNL HX OF TIA (TIA), AND CEREB INFRC W 08/10/2017 LAURA ALBA APRN Ot Z87.19 PERSONAL HISTORY OF OTHER DISEASES OF TH 08/10/2017 LAURA ALBA APRN Ot Z87.59 PERSONAL HISTORY OF COMP OF PREG, CHLDBR 08/10/2017 LAURA ALBA APRN, Ot Z87.891 PERSONAL HISTORY OF NICOTINE DEPENDENCE 08/10/2017 LAURA ALBA APRN Ot Z90.89 ACQUIRED ABSENCE OF OTHER ORGANS 08/10/2017 LAURA ALBA APRN Ot Z95.5 PRESENCE OF CORONARY ANGIOPLASTY IMPLANT 08/10/2017 LAURA ALBA APRN Ot Z98.51 TUBAL LIGATION STATUS 08/13/2017 LAURA ALBA APRN Ot E11.65 TYPE 2 DIABETES MELLITUS WITH HYPERGLYCE 08/13/2017 LAURA ALBA APRN Ot E78.00 PURE HYPERCHOLESTEROLEMIA, UNSPECIFIED 08/13/2017 LAURA ALBA APRN Ot F12.10 CANNABIS ABUSE, UNCOMPLICATED 08/13/2017 LAURA ALBA APRN Ot F41.9 ANXIETY DISORDER, UNSPECIFIED 08/13/2017 LAURA ALBA APRN Ot I10 ESSENTIAL (PRIMARY) HYPERTENSION 08/13/2017 LAURA ALBA APRN Ot I25.10 ATHSCL HEART DISEASE OF [place] CORONARY 08/13/2017 LAURA ALAB APRN Ot I25.2 OLD MYOCARDIAL INFARCTION 08/13/2017 LAURA ALBA APRN Ot J44.9 CHRONIC OBSTRUCTIVE PULMONARY DISEASE, U 08/13/2017 LAURA ALBA APRN Ot K21.9 GASTRO-ESOPHAGEAL REFLUX DISEASE WITHOUT 08/13/2017 LAURA ALBA APRN Ot N39.0 URINARY TRACT INFECTION, SITE NOT SPECIF 08/13/2017 LAURA ALBA APRN Ot R53.1 WEAKNESS 08/13/2017 LAURA ALBA APRN Ot Z79.4 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 OF INSULIN 08/13/2017 LAURA ALBA APRN Ot Z79.82 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 OF ASPIRIN 08/13/2017 LAURA ALBA APRN Ot Z80.0 FAMILY HISTORY OF MALIGNANT NEOPLASM OF 08/13/2017 LAURA ALBA APRN Ot Z82.49 FAMILY HX OF ISCHEM HEART DIS AND OTH DI 08/13/2017 LAURA ALBA APRN Ot Z85.41 PERSONAL HISTORY OF MALIGNANT NEOPLASM O 08/13/2017 LAURA ALBA APRN Ot Z86.73 PRSNL HX OF TIA (TIA), AND CEREB INFRC W 08/13/2017 LAURA ALBA APRN Ot Z87.19 PERSONAL HISTORY OF OTHER DISEASES OF TH 08/13/2017 LAURA ALBA APRN Ot Z87.59 PERSONAL HISTORY OF COMP OF PREG, CHLDBR 08/13/2017 LAURA ALBA APRN Ot Z87.891 PERSONAL HISTORY OF NICOTINE DEPENDENCE 08/13/2017 LAURA ALBA APRN Ot Z90.89 ACQUIRED ABSENCE OF OTHER ORGANS 08/13/2017 LAURA ALBA APRN Ot Z95.5 PRESENCE OF CORONARY ANGIOPLASTY IMPLANT 08/13/2017 LAURA ALBA APRN Ot Z98.51 TUBAL LIGATION STATUS 08/15/2017 YUSUF SHARP Ot I67.1 CEREBRAL ANEURYSM, NONRUPTURED 08/15/2017 SHWETHA SALEH MD Ot E11.42 TYPE 2 DIABETES MELLITUS WITH DIABETIC P 08/15/2017 SHWETHA SALEH MD Ot E11.621 TYPE 2 DIABETES MELLITUS WITH FOOT ULCER 08/15/2017 SHWETHA SALEH MD Ot L03.032 CELLULITIS OF LEFT TOE 08/15/2017 SHWETHA SALEH MD Ot L97.512 NON-PRS CHRONIC ULCER OTH PRT RIGHT FOOT 10/29/2017 Ot 250.00 10/29/2017 Ot 272.4 10/29/2017 Ot 401.1 10/29/2017 Ot 784.0 10/29/2017 Ot 959.01 10/29/2017 Ot E849.0 10/29/2017 Ot E888.9 10/29/2017 LUIS ALBERTO SHARPNETTShakira Santos MACHINE ETCHER Ot I67.1 CEREBRAL ANEURYSM, NONRUPTURED 10/29/2017 SHWETHA SALEH MD Ot E11.42 TYPE 2 DIABETES MELLITUS WITH DIABETIC P 10/29/2017 SHWETHA SALEH MD, Ot E11.621 TYPE 2 DIABETES MELLITUS WITH FOOT ULCER 10/29/2017 SHWETHA SALEH MD Ot L03.032 CELLULITIS OF LEFT TOE 10/29/2017 SHWETHA SALEH MD Ot L97.512 NON-PRS CHRONIC ULCER OTH PRT RIGHT FOOT 11/03/2017 YUSUF SHARPP Ot I67.1 CEREBRAL ANEURYSM, NONRUPTURED 11/03/2017 SHWETHA SALEH MD Ot E11.42 TYPE 2 DIABETES MELLITUS WITH DIABETIC P 11/03/2017 SHWETHA SALEH MD Ot E11.621 TYPE 2 DIABETES MELLITUS WITH FOOT ULCER 11/03/2017 SHWETHA SALEH MD Ot L03.032 CELLULITIS OF LEFT TOE 11/03/2017 SHWETHA SALEH MD Ot L97.512 NON-PRS CHRONIC ULCER OTH PRT RIGHT FOOT 11/04/2017 FABY CHANDLER MD Ot E11.9 TYPE 2 DIABETES MELLITUS WITHOUT COMPLIC 11/04/2017 FABY CHANDLER MD Ot E78.5 HYPERLIPIDEMIA, UNSPECIFIED 11/04/2017 FABY CHANDLER MD Ot F17.210 NICOTINE DEPENDENCE, CIGARETTES, UNCOMPL 11/04/2017 FABY CHANDLER MD Ot I10 ESSENTIAL (PRIMARY) HYPERTENSION 11/04/2017 FABY CHANDLER MD Ot 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 11/04/2017 FABY CHANDLER MD Ot R82.90 UNSPECIFIED ABNORMAL FINDINGS IN URINE 11/04/2017 FABY CHANDLER MD Ot Z11.2 ENCOUNTER FOR SCREENING FOR OTHER BACTER 11/05/2017 FABY CHANDLER MD Ot E11.9 TYPE 2 DIABETES MELLITUS WITHOUT COMPLIC 11/05/2017 FABY CHANDLER MD Ot E78.5 HYPERLIPIDEMIA, UNSPECIFIED 11/05/2017 FABY CHANDLER MD, Ot F17.210 NICOTINE DEPENDENCE, CIGARETTES, UNCOMPL 11/05/2017 FABY CHANDLER MD Ot I10 ESSENTIAL (PRIMARY) HYPERTENSION 11/05/2017 FABY CHANDLER MD, Ot 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 11/05/2017 FABY CHANDLER MD Ot R82.90 UNSPECIFIED ABNORMAL FINDINGS IN URINE 11/05/2017 FABY CHANDLER MD, Ot Z11.2 ENCOUNTER FOR SCREENING FOR OTHER BACTER 11/16/2017 BASSAM HICKMAN, ASHLEY Skelton Ot Z12.31 ENCNTR SCREEN MAMMOGRAM FOR MALIGNANT NE Procedures Code Description Performed By Performed On 37.22 LEFT HEART CARDIAC CATH 08/14/2007 88.53 LT HEART ANGIOCARDIOGRAM 08/14/2007 88.56 CORONAR ARTERIOGR-2 CATH 08/14/2007 00.40 PROCEDURE ON SINGLE VESSEL 08/27/2009 00.45 INSERTION OF ONE VASCULAR STENT 08/27/2009 00.66 PERC TRANSLUMINAL CORON ANGIOPLASTY PTCA 08/27/2009 36.07 INSRT OF DRUG-ELUTING CORON ARTERY STENT 08/27/2009 37.22 LEFT HEART CARDIAC CATH 08/27/2009 88.53 LT HEART ANGIOCARDIOGRAM 08/27/2009 88.56 CORONAR ARTERIOGR-2 CATH 08/27/2009 99.20 INJECT/INFUSE PLATELET INHIBITOR 08/27/2009 [id number] DILATION OF 2 COR ART WITH DRUG-ELUT INT 05/15/2015 [id number] MEASURE OF CARDIAC SAMPL PRESSURE, L H 05/15/2015 [id number] FLUOROSCOPY OF MULTIPLE CORONARY ARTERIE 05/15/2015 [id number] FLUOROSCOPY OF LEFT HEART USING OTHER CO 05/15/2015 [id number] DRAINAGE OF RIGHT FEMORAL REGION, OPEN A 05/22/2015 Results Test Result Range Complete blood count (CBC) with automated white blood cell (WBC) differential - 05/16/16 10:00 Blood leukocytes automated count (number/volume) 5.6 10*3/uL 4.3-11.0 Blood erythrocytes automated count (number/volume) 4.55 10*6/uL 4.35-5.85 Venous blood hemoglobin measurement (mass/volume) 13.5 g/dL 11.5-16.0 Blood hematocrit (volume fraction) 39 % 35-52 Automated erythrocyte mean corpuscular volume 86 [foz_us] 80-99 Automated erythrocyte mean corpuscular hemoglobin (mass per erythrocyte) 30 pg 25-34 Automated erythrocyte mean corpuscular hemoglobin concentration measurement ( mass/volume) 35 g/dL 32-36 Automated erythrocyte distribution width ratio 12.3 % 10.0-14.5 Automated blood platelet count (count/volume) 138 10*3/uL 130-400 Automated blood platelet mean volume measurement 11.7 [foz_us] 7.4-10.4 Automated blood neutrophils/100 leukocytes 53 % 42-75 Automated blood lymphocytes/100 leukocytes 37 % 12-44 Blood monocytes/100 leukocytes 7 % 0-12 Automated blood eosinophils/100 leukocytes 3 % 0-10 Automated blood basophils/100 leukocytes 0 % 0-10 Blood neutrophils automated count (number/volume) 3.0 10*3 1.8-7.8 Blood lymphocytes automated count (number/volume) 2.1 10*3 1.0-4.0 Blood monocytes automated count (number/volume) 0.4 10*3 0.0-1.0 Automated eosinophil count 0.1 10*3/uL 0.0-0.3 Automated blood basophil count (count/volume) 0.0 10*3/uL 0.0-0.1 PT panel in platelet poor plasma by coagulation assay - 05/16/16 10:00 Prothrombin time (PT) in platelet poor plasma by coagulation assay 13.2 s 12.2-14.7 INR in platelet poor plasma or blood by coagulation assay 1.0 0.8-1.4 Activated partial thromboplastin time (aPTT) in platelet poor plasma bycoagulation assay - 05/16/16 10:00 Activated partial thromboplastin time (aPTT) in platelet poor plasma bycoagulation assay 22 s 24-35 Fibrin D-dimer FEU measurement in platelet poor plasma (mass/volume) - 10:00 Fibrin D-dimer FEU measurement in platelet poor plasma (mass/volume) 0.35 ug/mL 0.00-0.49 Comprehensive metabolic panel - 05/16/16 10:00 Serum or plasma sodium measurement (moles/volume) 139 mmol/L 135-145 Serum or plasma potassium measurement (moles/volume) 4.0 mmol/L 3.6-5.0 Serum or plasma chloride measurement (moles/volume) 105 mmol/L 98-107 Carbon dioxide 23 mmol/L 21-32 Serum or plasma anion gap determination (moles/volume) 11 mmol/L 5-14 Serum or plasma urea nitrogen measurement (mass/volume) 15 mg/dL 7-18 Serum or plasma creatinine measurement (mass/volume) 0.73 mg/dL 0.60-1.30 Serum or plasma urea nitrogen/creatinine mass ratio 21 NRG Serum or plasma creatinine measurement with calculation of estimated glomerular filtration rate > NRG Serum or plasma glucose measurement (mass/volume) 301 mg/dL 70-105 Serum or plasma calcium measurement (mass/volume) 8.8 mg/dL 8.5-10.1 Serum or plasma total bilirubin measurement (mass/volume) 0.5 mg/dL 0.1-1.0 Serum or plasma alkaline phosphatase measurement (enzymatic activity/volume) 81 U/L 40-136 Serum or plasma aspartate aminotransferase measurement (enzymatic activity/ volume) 14 U/L 5-34 Serum or plasma alanine aminotransferase measurement (enzymatic activity/volume ) 15 U/L 0-55 Serum or plasma protein measurement (mass/volume) 6.8 g/dL 6.4-8.2 Serum or plasma albumin measurement (mass/volume) 3.7 g/dL 3.2-4.5 Serum or plasma troponin i.cardiac measurement (mass/volume) - 05/16/16 10:00 Serum or plasma troponin i.cardiac measurement (mass/volume) < ng/ mL <0.30 Complete urinalysis with reflex to culture - 05/16/16 10:50 Urine color determination YELLOW NRG Urine clarity determination SLIGHTLY CLOUDY NRG Urine pH measurement by test strip 7 5-9 Specific gravity of urine by test strip 1.010 1.016- 1.022 Urine protein assay by test strip, semi-quantitative 2+ NEGATIVE Urine glucose detection by automated test strip 4+ NEGATIVE Erythrocytes detection in urine sediment by light microscopy 2+ NEGATIVE Urine ketones detection by automated test strip NEGATIVE NEGATIVE Urine nitrite detection by test strip POSITIVE NEGATIVE Urine total bilirubin detection by test strip NEGATIVE NEGATIVE Urine urobilinogen measurement by automated test strip (mass/volume) NORMAL NORMAL Urine leukocyte esterase detection by dipstick 2+ NEGATIVE Automated urine sediment erythrocyte count by microscopy (number/high power field) [HPF] NRG Automated urine sediment leukocyte count by microscopy (number/high power field ) [HPF] NRG Bacteria detection in urine sediment by light microscopy LARGE NRG Squamous epithelial cells detection in urine sediment by light microscopy 10-25 NRG Crystals detection in urine sediment by light microscopy NONE NRG Casts detection in urine sediment by light microscopy NONE NRG Mucus detection in urine sediment by light microscopy NEGATIVE NRG Complete urinalysis with reflex to culture YES NRG Bacterial urine culture - 05/16/16 10:50 Bacterial urine culture [id number] NRG COLONY COUNT 10,000/ML - 100,000/ML NRG FTX;REPORTABLE SEE COMMENT NRG URINE CULTURE RESULTS PLUS NRG Bacterial susceptibility panel - 05/16/16 10:50 Gentamicin susceptibility test by minimum inhibitory concentration < = NRG Trimethoprim/sulfamethoxazole susceptibility test by minimum inhibitoryconcentration <= NRG Ampicillin susceptibility test by minimum inhibitory concentration 4 NRG Tobramycin susceptibility test by minimum inhibitory concentration < = NRG Cefazolin susceptibility test by minimum inhibitory concentration < = NRG Ceftriaxone susceptibility test by minimum inhibitory concentration <= NRG Ampicillin/sulbactam susceptibility test by minimum inhibitory concentration <= NRG Piperacillin/tazobactam susceptibility test by minimum inhibitory concentration <= NRG Ciprofloxacin susceptibility test by minimum inhibitory concentration >= NRG Meropenem susceptibility test by minimum inhibitory concentration < = NRG Nitrofurantoin susceptibility test by minimum inhibitory concentration <= NRG Aztreonam susceptibility test by minimum inhibitory concentration < = NRG Extended spectrum beta lactamase (ESBL) producing bacteria susceptibility test by minimum inhibitory concentration - NRG Complete blood count (CBC) with automated white blood cell (WBC) differential - 06/14/16 16:27 Blood leukocytes automated count (number/volume) 7.8 10*3/uL 4.3-11.0 Blood erythrocytes automated count (number/volume) 4.76 10*6/uL 4.35-5.85 Venous blood hemoglobin measurement (mass/volume) 14.1 g/dL 11.5-16.0 Blood hematocrit (volume fraction) 41 % 35-52 Automated erythrocyte mean corpuscular volume 86 [foz_us] 80-99 Automated erythrocyte mean corpuscular hemoglobin (mass per erythrocyte) 30 pg 25-34 Automated erythrocyte mean corpuscular hemoglobin concentration measurement ( mass/volume) 34 g/dL 32-36 Automated erythrocyte distribution width ratio 12.2 % 10.0-14.5 Automated blood platelet count (count/volume) 163 10*3/uL 130-400 Automated blood platelet mean volume measurement 12.0 [foz_us] 7.4-10.4 Automated blood neutrophils/100 leukocytes 53 % 42-75 Automated blood lymphocytes/100 leukocytes 39 % 12-44 Blood monocytes/100 leukocytes 6 % 0-12 Automated blood eosinophils/100 leukocytes 2 % 0-10 Automated blood basophils/100 leukocytes 0 % 0-10 Blood neutrophils automated count (number/volume) 4.1 10*3 1.8-7.8 Blood lymphocytes automated count (number/volume) 3.1 10*3 1.0-4.0 Blood monocytes automated count (number/volume) 0.5 10*3 0.0-1.0 Automated eosinophil count 0.1 10*3/uL 0.0-0.3 Automated blood basophil count (count/volume) 0.0 10*3/uL 0.0-0.1 PT panel in platelet poor plasma by coagulation assay - 06/14/16 16:27 Prothrombin time (PT) in platelet poor plasma by coagulation assay 13.1 s 12.2-14.7 INR in platelet poor plasma or blood by coagulation assay 1.0 0.8-1.4 Activated partial thromboplastin time (aPTT) in platelet poor plasma bycoagulation assay - 06/14/16 16:27 Activated partial thromboplastin time (aPTT) in platelet poor plasma bycoagulation assay 23 s 24-35 Comprehensive metabolic panel - 06/14/16 16:27 Serum or plasma sodium measurement (moles/volume) 136 mmol/L 135-145 Serum or plasma potassium measurement (moles/volume) 4.0 mmol/L 3.6-5.0 Serum or plasma chloride measurement (moles/volume) 103 mmol/L 98-107 Carbon dioxide 22 mmol/L 21-32 Serum or plasma anion gap determination (moles/volume) 11 mmol/L 5-14 Serum or plasma urea nitrogen measurement (mass/volume) 23 mg/dL 7-18 Serum or plasma creatinine measurement (mass/volume) 1.15 mg/dL 0.60-1.30 Serum or plasma urea nitrogen/creatinine mass ratio 20 NRG Serum or plasma creatinine measurement with calculation of estimated glomerular filtration rate 48 NRG Serum or plasma glucose measurement (mass/volume) 465 mg/dL 70-105 Serum or plasma calcium measurement (mass/volume) 9.4 mg/dL 8.5-10.1 Serum or plasma total bilirubin measurement (mass/volume) 0.5 mg/dL 0.1-1.0 Serum or plasma alkaline phosphatase measurement (enzymatic activity/volume) 75 U/L 40-136 Serum or plasma aspartate aminotransferase measurement (enzymatic activity/ volume) 15 U/L 5-34 Serum or plasma alanine aminotransferase measurement (enzymatic activity/volume ) 12 U/L 0-55 Serum or plasma protein measurement (mass/volume) 7.4 g/dL 6.4-8.2 Serum or plasma albumin measurement (mass/volume) 4.0 g/dL 3.2-4.5 Magnesium - 06/14/16 16:27 Magnesium 2.0 mg/dL 1.8-2.4 Lipase - 06/14/16 16:27 Lipase 30 U/L 8-78 Serum or plasma troponin i.cardiac measurement (mass/volume) - 06/14/16 16:27 Serum or plasma troponin i.cardiac measurement (mass/volume) < ng/ mL <0.30 Myoglobin, serum - 06/14/16 16:27 Myoglobin, serum 44.0 ng/mL 10.0-92.0 Capillary blood glucose measurement by glucometer (mass/volume) - 06/14/16 21: 22 Capillary blood glucose measurement by glucometer (mass/volume) 232 mg/dL 70-110 Serum or plasma troponin i.cardiac measurement (mass/volume) - 06/14/16 21:38 Serum or plasma troponin i.cardiac measurement (mass/volume) < ng/ mL <0.30 Lipid 1996 panel - 06/15/16 03:46 Serum or plasma triglyceride measurement (mass/volume) 164 mg/dL <150 Serum or plasma cholesterol measurement (mass/volume) 171 mg/dL < 200 Serum or plasma cholesterol in HDL measurement (mass/volume) 41 mg/ dL 40-60 Cholesterol in LDL [mass/volume] in serum or plasma by direct assay 111 mg/dL 1-129 Serum or plasma cholesterol in VLDL measurement (mass/volume) 33 mg/ dL 5-40 Capillary blood glucose measurement by glucometer (mass/volume) - 06/15/16 07: 06 Capillary blood glucose measurement by glucometer (mass/volume) 191 mg/dL 70-110 Capillary blood glucose measurement by glucometer (mass/volume) - 06/15/16 10: 50 Capillary blood glucose measurement by glucometer (mass/volume) 201 mg/dL 70-110 Capillary blood glucose measurement by glucometer (mass/volume) - 06/15/16 15: 57 Capillary blood glucose measurement by glucometer (mass/volume) 146 mg/dL 70-110 Capillary blood glucose measurement by glucometer (mass/volume) - 06/15/16 20: 39 Capillary blood glucose measurement by glucometer (mass/volume) 240 mg/dL 70-110 Capillary blood glucose measurement by glucometer (mass/volume) - 06/16/16 05: 29 Capillary blood glucose measurement by glucometer (mass/volume) 107 mg/dL 70-110 Capillary blood glucose measurement by glucometer (mass/volume) - 06/16/16 11: 06 Capillary blood glucose measurement by glucometer (mass/volume) 145 mg/dL 70-110 Activated partial thromboplastin time (aPTT) in platelet poor plasma bycoagulation assay - 06/16/16 11:07 Activated partial thromboplastin time (aPTT) in platelet poor plasma bycoagulation assay 95 s 24-35 Activated partial thromboplastin time (aPTT) in platelet poor plasma bycoagulation assay - 06/16/16 12:25 Activated partial thromboplastin time (aPTT) in platelet poor plasma bycoagulation assay 46 s 24-35 Capillary blood glucose measurement by glucometer (mass/volume) - 06/16/16 16: 44 Capillary blood glucose measurement by glucometer (mass/volume) 225 mg/dL 70-110 Capillary blood glucose measurement by glucometer (mass/volume) - 06/16/16 20: 47 Capillary blood glucose measurement by glucometer (mass/volume) 326 mg/dL 70-110 Automated blood complete blood count (hemogram) panel - 06/17/16 04:30 Blood leukocytes automated count (number/volume) 8.8 10*3/uL 4.3-11.0 Blood erythrocytes automated count (number/volume) 4.29 10*6/uL 4.35-5.85 Venous blood hemoglobin measurement (mass/volume) 12.9 g/dL 11.5-16.0 Blood hematocrit (volume fraction) 37 % 35-52 Automated erythrocyte mean corpuscular volume 87 [foz_us] 80-99 Automated erythrocyte mean corpuscular hemoglobin (mass per erythrocyte) 30 pg 25-34 Automated erythrocyte mean corpuscular hemoglobin concentration measurement ( mass/volume) 35 g/dL 32-36 Automated erythrocyte distribution width ratio 12.1 % 10.0-14.5 Automated blood platelet count (count/volume) 146 10*3/uL 130-400 Automated blood platelet mean volume measurement 11.8 [foz_us] 7.4-10.4 Whole blood basic metabolic panel - 06/17/16 04:30 Serum or plasma sodium measurement (moles/volume) 141 mmol/L 135-145 Serum or plasma potassium measurement (moles/volume) 3.7 mmol/L 3.6-5.0 Serum or plasma chloride measurement (moles/volume) 112 mmol/L 98-107 Carbon dioxide 21 mmol/L 21-32 Serum or plasma anion gap determination (moles/volume) 8 mmol/L 5-14 Serum or plasma urea nitrogen measurement (mass/volume) 24 mg/dL 7-18 Serum or plasma creatinine measurement (mass/volume) 0.73 mg/dL 0.60-1.30 Serum or plasma urea nitrogen/creatinine mass ratio 33 NRG Serum or plasma creatinine measurement with calculation of estimated glomerular filtration rate > NRG Serum or plasma glucose measurement (mass/volume) 198 mg/dL 70-105 Serum or plasma calcium measurement (mass/volume) 8.7 mg/dL 8.5-10.1 Capillary blood glucose measurement by glucometer (mass/volume) - 06/17/16 11: 24 Capillary blood glucose measurement by glucometer (mass/volume) 106 mg/dL 70-110 Complete blood count (CBC) with automated white blood cell (WBC) differential - 07/21/16 08:23 Blood leukocytes automated count (number/volume) 6.8 10*3/uL 4.3-11.0 Blood erythrocytes automated count (number/volume) 4.83 10*6/uL 4.35-5.85 Venous blood hemoglobin measurement (mass/volume) 14.4 g/dL 11.5-16.0 Blood hematocrit (volume fraction) 41 % 35-52 Automated erythrocyte mean corpuscular volume 85 [foz_us] 80-99 Automated erythrocyte mean corpuscular hemoglobin (mass per erythrocyte) 30 pg 25-34 Automated erythrocyte mean corpuscular hemoglobin concentration measurement ( mass/volume) 35 g/dL 32-36 Automated erythrocyte distribution width ratio 12.7 % 10.0-14.5 Automated blood platelet count (count/volume) 152 10*3/uL 130-400 Automated blood platelet mean volume measurement 11.8 [foz_us] 7.4-10.4 Automated blood neutrophils/100 leukocytes 65 % 42-75 Automated blood lymphocytes/100 leukocytes 29 % 12-44 Blood monocytes/100 leukocytes 4 % 0-12 Automated blood eosinophils/100 leukocytes 2 % 0-10 Automated blood basophils/100 leukocytes 0 % 0-10 Blood neutrophils automated count (number/volume) 4.4 10*3 1.8-7.8 Blood lymphocytes automated count (number/volume) 2.0 10*3 1.0-4.0 Blood monocytes automated count (number/volume) 0.3 10*3 0.0-1.0 Automated eosinophil count 0.1 10*3/uL 0.0-0.3 Automated blood basophil count (count/volume) 0.0 10*3/uL 0.0-0.1 Comprehensive metabolic panel - 07/21/16 08:23 Serum or plasma sodium measurement (moles/volume) 137 mmol/L 135-145 Serum or plasma potassium measurement (moles/volume) 3.9 mmol/L 3.6-5.0 Serum or plasma chloride measurement (moles/volume) 104 mmol/L 98-107 Carbon dioxide 22 mmol/L 21-32 Serum or plasma anion gap determination (moles/volume) 11 mmol/L 5-14 Serum or plasma urea nitrogen measurement (mass/volume) 13 mg/dL 7-18 Serum or plasma creatinine measurement (mass/volume) 0.82 mg/dL 0.60-1.30 Serum or plasma urea nitrogen/creatinine mass ratio 16 NRG Serum or plasma creatinine measurement with calculation of estimated glomerular filtration rate > NRG Serum or plasma glucose measurement (mass/volume) 385 mg/dL 70-105 Serum or plasma calcium measurement (mass/volume) 9.2 mg/dL 8.5-10.1 Serum or plasma total bilirubin measurement (mass/volume) 0.4 mg/dL 0.1-1.0 Serum or plasma alkaline phosphatase measurement (enzymatic activity/volume) 81 U/L 40-136 Serum or plasma aspartate aminotransferase measurement (enzymatic activity/ volume) 12 U/L 5-34 Serum or plasma alanine aminotransferase measurement (enzymatic activity/volume ) 15 U/L 0-55 Serum or plasma protein measurement (mass/volume) 7.0 g/dL 6.4-8.2 Serum or plasma albumin measurement (mass/volume) 3.9 g/dL 3.2-4.5 Serum or plasma amylase measurement (enzymatic activity/volume) - 07/21/16 08: 23 Serum or plasma amylase measurement (enzymatic activity/volume) 34 U /L 25-125 Lipase - 07/21/16 08:23 Lipase 30 U/L 8-78 Influenza virus A and B antigen detection - 08/28/16 18:20 FLU RESULT NEGATIVE FOR INFLUENZA A AND B ANTIGENS BY [facility] Complete blood count (CBC) with automated white blood cell (WBC) differential - 08/28/16 18:50 Blood leukocytes automated count (number/volume) 5.0 10*3/uL 4.3-11.0 Blood erythrocytes automated count (number/volume) 4.65 10*6/uL 4.35-5.85 Venous blood hemoglobin measurement (mass/volume) 13.7 g/dL 11.5-16.0 Blood hematocrit (volume fraction) 40 % 35-52 Automated erythrocyte mean corpuscular volume 86 [foz_us] 80-99 Automated erythrocyte mean corpuscular hemoglobin (mass per erythrocyte) 30 pg 25-34 Automated erythrocyte mean corpuscular hemoglobin concentration measurement ( mass/volume) 34 g/dL 32-36 Automated erythrocyte distribution width ratio 12.5 % 10.0-14.5 Automated blood platelet count (count/volume) 143 10*3/uL 130-400 Automated blood platelet mean volume measurement 11.7 [foz_us] 7.4-10.4 Automated blood neutrophils/100 leukocytes 62 % 42-75 Automated blood lymphocytes/100 leukocytes 28 % 12-44 Blood monocytes/100 leukocytes 10 % 0-12 Automated blood eosinophils/100 leukocytes 1 % 0-10 Automated blood basophils/100 leukocytes 0 % 0-10 Blood neutrophils automated count (number/volume) 3.1 10*3 1.8-7.8 Blood lymphocytes automated count (number/volume) 1.4 10*3 1.0-4.0 Blood monocytes automated count (number/volume) 0.5 10*3 0.0-1.0 Automated eosinophil count 0.1 10*3/uL 0.0-0.3 Automated blood basophil count (count/volume) 0.0 10*3/uL 0.0-0.1 Blood lactic acid measurement (moles/volume) - 08/28/16 18:50 Blood lactic acid measurement (moles/volume) 1.9 mmol/L 0.5-2.0 Comprehensive metabolic panel - 08/28/16 18:50 Serum or plasma sodium measurement (moles/volume) 134 mmol/L 135-145 Serum or plasma potassium measurement (moles/volume) 3.7 mmol/L 3.6-5.0 Serum or plasma chloride measurement (moles/volume) 103 mmol/L 98-107 Carbon dioxide 23 mmol/L 21-32 Serum or plasma anion gap determination (moles/volume) 8 mmol/L 5-14 Serum or plasma urea nitrogen measurement (mass/volume) 14 mg/dL 7-18 Serum or plasma creatinine measurement (mass/volume) 0.89 mg/dL 0.60-1.30 Serum or plasma urea nitrogen/creatinine mass ratio 16 NRG Serum or plasma creatinine measurement with calculation of estimated glomerular filtration rate > NRG Serum or plasma glucose measurement (mass/volume) 290 mg/dL 70-105 Serum or plasma calcium measurement (mass/volume) 8.8 mg/dL 8.5-10.1 Serum or plasma total bilirubin measurement (mass/volume) 0.4 mg/dL 0.1-1.0 Serum or plasma alkaline phosphatase measurement (enzymatic activity/volume) 87 U/L 40-136 Serum or plasma aspartate aminotransferase measurement (enzymatic activity/ volume) 18 U/L 5-34 Serum or plasma alanine aminotransferase measurement (enzymatic activity/volume ) 13 U/L 0-55 Serum or plasma protein measurement (mass/volume) 7.2 g/dL 6.4-8.2 Serum or plasma albumin measurement (mass/volume) 3.7 g/dL 3.2-4.5 Bacterial blood culture - 08/28/16 18:50 Bacterial blood culture NG NRG Bacterial blood culture - 08/28/16 19:22 Bacterial blood culture NG NRG Complete urinalysis with reflex to culture - 08/28/16 19:30 Urine color determination YELLOW NRG Urine clarity determination SLIGHTLY CLOUDY NRG Urine pH measurement by test strip 5 5-9 Specific gravity of urine by test strip 1.015 1.016- 1.022 Urine protein assay by test strip, semi-quantitative 3+ NEGATIVE Urine glucose detection by automated test strip 4+ NEGATIVE Erythrocytes detection in urine sediment by light microscopy 2+ NEGATIVE Urine ketones detection by automated test strip NEGATIVE NEGATIVE Urine nitrite detection by test strip NEGATIVE NEGATIVE Urine total bilirubin detection by test strip NEGATIVE NEGATIVE Urine urobilinogen measurement by automated test strip (mass/volume) NORMAL NORMAL Urine leukocyte esterase detection by dipstick NEGATIVE NEGATIVE Automated urine sediment erythrocyte count by microscopy (number/high power field) [HPF] NRG Automated urine sediment leukocyte count by microscopy (number/high power field ) [HPF] NRG Bacteria detection in urine sediment by light microscopy TRACE NRG Squamous epithelial cells detection in urine sediment by light microscopy 2-5 NRG Crystals detection in urine sediment by light microscopy NONE NRG Casts detection in urine sediment by light microscopy NONE NRG Mucus detection in urine sediment by light microscopy NEGATIVE NRG Complete urinalysis with reflex to culture NO NRG CBC With Differential/Platelet - 10/28/16 09:45 WBC 5.4 x10E3/uL 3.4-10.8 RBC 4.72 x10E6/uL 3.77-5.28 Hemoglobin 13.9 g/dL 11.1-15.9 Hematocrit 42.4 % 34.0-46.6 MCV 90 fL 79-97 MCH 29.4 pg 26.6-33.0 MCHC 32.8 g/dL 31.5-35.7 RDW 13.4 % 12.3-15.4 Platelets 158 x10E3/uL 150-379 Neutrophils 60 % Lymphs 34 % Monocytes 4 % Eos 2 % Basos 0 % Neutrophils (Absolute) 3.2 x10E3/uL 1.4-7.0 Lymphs (Absolute) 1.9 x10E3/uL 0.7-3.1 Monocytes(Absolute) 0.2 x10E3/uL 0.1-0.9 Eos (Absolute) 0.1 x10E3/uL 0.0-0.4 Baso (Absolute) 0.0 x10E3/uL 0.0-0.2 Immature Granulocytes 0 % Immature Grans (Abs) 0.0 x10E3/uL 0.0-0.1 Comp. Metabolic Panel (14) - 10/28/16 09:45 Glucose, Serum 492 mg/dL 65-99 BUN 20 mg/dL 8-27 Creatinine, Serum 0.61 mg/dL 0.57-1.00 eGFR If NonAfricn Am 98 mL/min/1.73 >59 eGFR If Africn Am 113 mL/min/1.73 >59 BUN/Creatinine Ratio 33 12-28 Sodium, Serum 137 mmol/L 134-144 Potassium, Serum 4.7 mmol/L 3.5-5.2 Chloride, Serum 97 mmol/L 96-106 Carbon Dioxide, Total 24 mmol/L 18-29 Calcium, Serum 9.5 mg/dL 8.7-10.3 Protein, Total, Serum 7.1 g/dL 6.0-8.5 Albumin, Serum 3.9 g/dL 3.6-4.8 Globulin, Total 3.2 g/dL 1.5-4.5 A/G Ratio 1.2 1.2-2.2 Bilirubin, Total 0.3 mg/dL 0.0-1.2 Alkaline Phosphatase, S 79 IU/L 39-117 AST (SGOT) 9 IU/L 0-40 ALT (SGPT) 9 IU/L 0-32 Complete blood count (CBC) with automated white blood cell (WBC) differential - 03/04/17 19:35 Blood leukocytes automated count (number/volume) 7.1 10*3/uL 4.3-11.0 Blood erythrocytes automated count (number/volume) 4.42 10*6/uL 4.35-5.85 Venous blood hemoglobin measurement (mass/volume) 13.1 g/dL 11.5-16.0 Blood hematocrit (volume fraction) 38 % 35-52 Automated erythrocyte mean corpuscular volume 87 [foz_us] 80-99 Automated erythrocyte mean corpuscular hemoglobin (mass per erythrocyte) 30 pg 25-34 Automated erythrocyte mean corpuscular hemoglobin concentration measurement ( mass/volume) 34 g/dL 32-36 Automated erythrocyte distribution width ratio 12.8 % 10.0-14.5 Automated blood platelet count (count/volume) 156 10*3/uL 130-400 Automated blood platelet mean volume measurement 11.7 [foz_us] 7.4-10.4 Automated blood neutrophils/100 leukocytes 54 % 42-75 Automated blood lymphocytes/100 leukocytes 39 % 12-44 Blood monocytes/100 leukocytes 7 % 0-12 Automated blood eosinophils/100 leukocytes 1 % 0-10 Automated blood basophils/100 leukocytes 0 % 0-10 Blood neutrophils automated count (number/volume) 3.8 10*3 1.8-7.8 Blood lymphocytes automated count (number/volume) 2.8 10*3 1.0-4.0 Blood monocytes automated count (number/volume) 0.5 10*3 0.0-1.0 Automated eosinophil count 0.1 10*3/uL 0.0-0.3 Automated blood basophil count (count/volume) 0.0 10*3/uL 0.0-0.1 PT panel in platelet poor plasma by coagulation assay - 03/04/17 19:35 Prothrombin time (PT) in platelet poor plasma by coagulation assay 12.9 s 12.2-14.7 INR in platelet poor plasma or blood by coagulation assay 1.0 0.8-1.4 Activated partial thromboplastin time (aPTT) in platelet poor plasma bycoagulation assay - 03/04/17 19:35 Activated partial thromboplastin time (aPTT) in platelet poor plasma bycoagulation assay 25 s 24-35 Comprehensive metabolic panel - 03/04/17 19:35 Serum or plasma sodium measurement (moles/volume) 136 mmol/L 135-145 Serum or plasma potassium measurement (moles/volume) 3.9 mmol/L 3.6-5.0 Serum or plasma chloride measurement (moles/volume) 105 mmol/L 98-107 Carbon dioxide 21 mmol/L 21-32 Serum or plasma anion gap determination (moles/volume) 10 mmol/L 5-14 Serum or plasma urea nitrogen measurement (mass/volume) 16 mg/dL 7-18 Serum or plasma creatinine measurement (mass/volume) 0.77 mg/dL 0.60-1.30 Serum or plasma urea nitrogen/creatinine mass ratio 21 NRG Serum or plasma creatinine measurement with calculation of estimated glomerular filtration rate > NRG Serum or plasma glucose measurement (mass/volume) 354 mg/dL 70-105 Serum or plasma calcium measurement (mass/volume) 9.1 mg/dL 8.5-10.1 Serum or plasma total bilirubin measurement (mass/volume) 0.4 mg/dL 0.1-1.0 Serum or plasma alkaline phosphatase measurement (enzymatic activity/volume) 67 U/L 40-136 Serum or plasma aspartate aminotransferase measurement (enzymatic activity/ volume) 14 U/L 5-34 Serum or plasma alanine aminotransferase measurement (enzymatic activity/volume ) 11 U/L 0-55 Serum or plasma protein measurement (mass/volume) 6.8 g/dL 6.4-8.2 Serum or plasma albumin measurement (mass/volume) 3.4 g/dL 3.2-4.5 Magnesium - 03/04/17 19:35 Magnesium 1.6 mg/dL 1.8-2.4 Serum or plasma troponin i.cardiac measurement (mass/volume) - 03/04/17 19:35 Serum or plasma troponin i.cardiac measurement (mass/volume) < ng/ mL <0.30 Myoglobin, serum - 03/04/17 19:35 Myoglobin, serum 33.1 ng/mL 10.0-92.0 Serum or plasma troponin i.cardiac measurement (mass/volume) - 03/05/17 00:38 Serum or plasma troponin i.cardiac measurement (mass/volume) < ng/ mL <0.30 Whole blood basic metabolic panel - 03/05/17 06:38 Serum or plasma sodium measurement (moles/volume) 139 mmol/L 135-145 Serum or plasma potassium measurement (moles/volume) 3.5 mmol/L 3.6-5.0 Serum or plasma chloride measurement (moles/volume) 106 mmol/L 98-107 Carbon dioxide 20 mmol/L 21-32 Serum or plasma anion gap determination (moles/volume) 13 mmol/L 5-14 Serum or plasma urea nitrogen measurement (mass/volume) 17 mg/dL 7-18 Serum or plasma creatinine measurement (mass/volume) 0.76 mg/dL 0.60-1.30 Serum or plasma urea nitrogen/creatinine mass ratio 22 NRG Serum or plasma creatinine measurement with calculation of estimated glomerular filtration rate > NRG Serum or plasma glucose measurement (mass/volume) 299 mg/dL 70-105 Serum or plasma calcium measurement (mass/volume) 9.2 mg/dL 8.5-10.1 Capillary blood glucose measurement by glucometer (mass/volume) - 03/05/17 06: 41 Capillary blood glucose measurement by glucometer (mass/volume) 101 mg/dL 70-110 Lipid 1996 panel - 03/05/17 06:42 Serum or plasma triglyceride measurement (mass/volume) 215 mg/dL <150 Serum or plasma cholesterol measurement (mass/volume) 195 mg/dL < 200 Serum or plasma cholesterol in HDL measurement (mass/volume) 46 mg/ dL 40-60 Cholesterol in LDL [mass/volume] in serum or plasma by direct assay 120 mg/dL 1-129 Serum or plasma cholesterol in VLDL measurement (mass/volume) 43 mg/ dL 5-40 Serum or plasma troponin i.cardiac measurement (mass/volume) - 03/05/17 06:42 Serum or plasma troponin i.cardiac measurement (mass/volume) < ng/ mL <0.30 Capillary blood glucose measurement by glucometer (mass/volume) - 03/05/17 10: 31 Capillary blood glucose measurement by glucometer (mass/volume) 71 mg/dL 70-110 Activated partial thromboplastin time (aPTT) in platelet poor plasma bycoagulation assay - 03/05/17 14:00 Activated partial thromboplastin time (aPTT) in platelet poor plasma bycoagulation assay 83 s 24-35 Capillary blood glucose measurement by glucometer (mass/volume) - 03/05/17 14: 52 Capillary blood glucose measurement by glucometer (mass/volume) 54 mg/dL 70-110 Activated partial thromboplastin time (aPTT) in platelet poor plasma bycoagulation assay - 03/05/17 14:55 Activated partial thromboplastin time (aPTT) in platelet poor plasma bycoagulation assay 51 s 24-35 Capillary blood glucose measurement by glucometer (mass/volume) - 03/05/17 15: 23 Capillary blood glucose measurement by glucometer (mass/volume) 116 mg/dL 70-110 Capillary blood glucose measurement by glucometer (mass/volume) - 03/05/17 23: 29 Capillary blood glucose measurement by glucometer (mass/volume) 281 mg/dL 70-110 Automated blood complete blood count (hemogram) panel - 03/06/17 04:12 Blood leukocytes automated count (number/volume) 6.1 10*3/uL 4.3-11.0 Blood erythrocytes automated count (number/volume) 4.20 10*6/uL 4.35-5.85 Venous blood hemoglobin measurement (mass/volume) 12.5 g/dL 11.5-16.0 Blood hematocrit (volume fraction) 37 % 35-52 Automated erythrocyte mean corpuscular volume 88 [foz_us] 80-99 Automated erythrocyte mean corpuscular hemoglobin (mass per erythrocyte) 30 pg 25-34 Automated erythrocyte mean corpuscular hemoglobin concentration measurement ( mass/volume) 34 g/dL 32-36 Automated erythrocyte distribution width ratio 12.7 % 10.0-14.5 Automated blood platelet count (count/volume) 134 10*3/uL 130-400 Automated blood platelet mean volume measurement 11.7 [foz_us] 7.4-10.4 Whole blood basic metabolic panel - 03/06/17 04:12 Serum or plasma sodium measurement (moles/volume) 141 mmol/L 135-145 Serum or plasma potassium measurement (moles/volume) 3.6 mmol/L 3.6-5.0 Serum or plasma chloride measurement (moles/volume) 110 mmol/L 98-107 Carbon dioxide 21 mmol/L 21-32 Serum or plasma anion gap determination (moles/volume) 10 mmol/L 5-14 Serum or plasma urea nitrogen measurement (mass/volume) 14 mg/dL 7-18 Serum or plasma creatinine measurement (mass/volume) 0.68 mg/dL 0.60-1.30 Serum or plasma urea nitrogen/creatinine mass ratio 21 NRG Serum or plasma creatinine measurement with calculation of estimated glomerular filtration rate > NRG Serum or plasma glucose measurement (mass/volume) 196 mg/dL 70-105 Serum or plasma calcium measurement (mass/volume) 8.4 mg/dL 8.5-10.1 Capillary blood glucose measurement by glucometer (mass/volume) - 03/06/17 09: 50 Capillary blood glucose measurement by glucometer (mass/volume) 204 mg/dL 70-110 Influenza virus A and B antigen detection - 08/06/17 15:20 FLU RESULT NEGATIVE FOR INFLUENZA A AND B ANTIGENS BY [facility] Complete blood count (CBC) with automated white blood cell (WBC) differential - 08/06/17 15:31 Blood leukocytes automated count (number/volume) 9.9 10*3/uL 4.3-11.0 Blood erythrocytes automated count (number/volume) 4.59 10*6/uL 4.35-5.85 Venous blood hemoglobin measurement (mass/volume) 13.6 g/dL 11.5-16.0 Blood hematocrit (volume fraction) 39 % 35-52 Automated erythrocyte mean corpuscular volume 85 [foz_us] 80-99 Automated erythrocyte mean corpuscular hemoglobin (mass per erythrocyte) 30 pg 25-34 Automated erythrocyte mean corpuscular hemoglobin concentration measurement ( mass/volume) 35 g/dL 32-36 Automated erythrocyte distribution width ratio 12.5 % 10.0-14.5 Automated blood platelet count (count/volume) 169 10*3/uL 130-400 Automated blood platelet mean volume measurement 12.4 [foz_us] 7.4-10.4 Automated blood neutrophils/100 leukocytes 62 % 42-75 Automated blood lymphocytes/100 leukocytes 32 % 12-44 Blood monocytes/100 leukocytes 4 % 0-12 Automated blood eosinophils/100 leukocytes 1 % 0-10 Automated blood basophils/100 leukocytes 0 % 0-10 Blood neutrophils automated count (number/volume) 6.1 10*3 1.8-7.8 Blood lymphocytes automated count (number/volume) 3.2 10*3 1.0-4.0 Blood monocytes automated count (number/volume) 0.4 10*3 0.0-1.0 Automated eosinophil count 0.1 10*3/uL 0.0-0.3 Automated blood basophil count (count/volume) 0.0 10*3/uL 0.0-0.1 Comprehensive metabolic panel - 08/06/17 15:31 Serum or plasma sodium measurement (moles/volume) 134 mmol/L 135-145 Serum or plasma potassium measurement (moles/volume) 4.1 mmol/L 3.6-5.0 Serum or plasma chloride measurement (moles/volume) 99 mmol/L 98-107 Carbon dioxide 22 mmol/L 21-32 Serum or plasma anion gap determination (moles/volume) 13 mmol/L 5-14 Serum or plasma urea nitrogen measurement (mass/volume) 20 mg/dL 7-18 Serum or plasma creatinine measurement (mass/volume) 1.08 mg/dL 0.60-1.30 Serum or plasma urea nitrogen/creatinine mass ratio 19 NRG Serum or plasma creatinine measurement with calculation of estimated glomerular filtration rate 51 NRG Serum or plasma glucose measurement (mass/volume) 538 mg/dL 70-105 Serum or plasma calcium measurement (mass/volume) 9.2 mg/dL 8.5-10.1 Serum or plasma total bilirubin measurement (mass/volume) 0.4 mg/dL 0.1-1.0 Serum or plasma alkaline phosphatase measurement (enzymatic activity/volume) 71 U/L 40-136 Serum or plasma aspartate aminotransferase measurement (enzymatic activity/ volume) 11 U/L 5-34 Serum or plasma alanine aminotransferase measurement (enzymatic activity/volume ) 12 U/L 0-55 Serum or plasma protein measurement (mass/volume) 7.2 g/dL 6.4-8.2 Serum or plasma albumin measurement (mass/volume) 3.6 g/dL 3.2-4.5 Serum or plasma troponin i.cardiac measurement (mass/volume) - 08/06/17 15:31 Serum or plasma troponin i.cardiac measurement (mass/volume) < ng/ mL <0.30 Complete urinalysis with reflex to culture - 08/06/17 16:20 Urine color determination YELLOW NRG Urine clarity determination SLIGHTLY CLOUDY NRG Urine pH measurement by test strip 5 5-9 Specific gravity of urine by test strip 1.010 1.016- 1.022 Urine protein assay by test strip, semi-quantitative NEGATIVE NEGATIVE Urine glucose detection by automated test strip 4+ NEGATIVE Erythrocytes detection in urine sediment by light microscopy 1+ NEGATIVE Urine ketones detection by automated test strip NEGATIVE NEGATIVE Urine nitrite detection by test strip NEGATIVE NEGATIVE Urine total bilirubin detection by test strip NEGATIVE NEGATIVE Urine urobilinogen measurement by automated test strip (mass/volume) NORMAL NORMAL Urine leukocyte esterase detection by dipstick 3+ NEGATIVE Automated urine sediment erythrocyte count by microscopy (number/high power field) [HPF] NRG Automated urine sediment leukocyte count by microscopy (number/high power field ) [HPF] NRG Bacteria detection in urine sediment by light microscopy MODERATE NRG Squamous epithelial cells detection in urine sediment by light microscopy 10-25 NRG Crystals detection in urine sediment by light microscopy NONE NRG Casts detection in urine sediment by light microscopy NONE NRG Mucus detection in urine sediment by light microscopy NEGATIVE NRG Complete urinalysis with reflex to culture YES NRG Yeast detection in urine sediment by light microscopy FEW NRG Bacterial urine culture - 08/06/17 16:20 URINE CULTURE RESULTS <10,000/ML NRG Capillary blood glucose measurement by glucometer (mass/volume) - 08/06/17 17: 09 Capillary blood glucose measurement by glucometer (mass/volume) 343 mg/dL 70-110 Capillary blood glucose measurement by glucometer (mass/volume) - 08/06/17 17: 55 Capillary blood glucose measurement by glucometer (mass/volume) 262 mg/dL 70-110 Complete urinalysis with reflex to culture - 11/04/17 07:02 Urine color determination YELLOW NRG Urine clarity determination SLIGHTLY CLOUDY NRG Urine pH measurement by test strip 5 5-9 Specific gravity of urine by test strip 1.025 1.016- 1.022 Urine protein assay by test strip, semi-quantitative 1+ NEGATIVE Urine glucose detection by automated test strip NEGATIVE NEGATIVE Erythrocytes detection in urine sediment by light microscopy 1+ NEGATIVE Urine ketones detection by automated test strip NEGATIVE NEGATIVE Urine nitrite detection by test strip NEGATIVE NEGATIVE Urine total bilirubin detection by test strip NEGATIVE NEGATIVE Urine urobilinogen measurement by automated test strip (mass/volume) NORMAL NORMAL Urine leukocyte esterase detection by dipstick 3+ NEGATIVE Automated urine sediment erythrocyte count by microscopy (number/high power field) RARE NRG Automated urine sediment leukocyte count by microscopy (number/high power field ) [HPF] NRG Bacteria detection in urine sediment by light microscopy TRACE NRG Squamous epithelial cells detection in urine sediment by light microscopy 25-50 NRG Crystals detection in urine sediment by light microscopy NONE NRG Casts detection in urine sediment by light microscopy NONE NRG Mucus detection in urine sediment by light microscopy NEGATIVE NRG Complete urinalysis with reflex to culture YES NRG Bacterial urine culture - 11/04/17 07:02 Bacterial urine culture NG NRG Methicillin resistant Staphylococcus aureus (MRSA) screening culture - 07:11 Methicillin resistant Staphylococcus aureus (MRSA) screening culture NEG NRG Automated blood complete blood count (hemogram) panel - 11/04/17 07:41 Blood leukocytes automated count (number/volume) 6.4 10*3/uL 4.3-11.0 Blood erythrocytes automated count (number/volume) 3.92 10*6/uL 4.35-5.85 Venous blood hemoglobin measurement (mass/volume) 11.5 g/dL 11.5-16.0 Blood hematocrit (volume fraction) 34 % 35-52 Automated erythrocyte mean corpuscular volume 88 [foz_us] 80-99 Automated erythrocyte mean corpuscular hemoglobin (mass per erythrocyte) 29 pg 25-34 Automated erythrocyte mean corpuscular hemoglobin concentration measurement ( mass/volume) 34 g/dL 32-36 Automated erythrocyte distribution width ratio 12.7 % 10.0-14.5 Automated blood platelet count (count/volume) 171 10*3/uL 130-400 Automated blood platelet mean volume measurement 11.4 [foz_us] 7.4-10.4 PT panel in platelet poor plasma by coagulation assay - 11/04/17 07:41 Prothrombin time (PT) in platelet poor plasma by coagulation assay 13.6 s 12.2-14.7 INR in platelet poor plasma or blood by coagulation assay 1.0 0.8-1.4 Activated partial thromboplastin time (aPTT) in platelet poor plasma bycoagulation assay - 11/04/17 07:41 Activated partial thromboplastin time (aPTT) in platelet poor plasma bycoagulation assay 26 s 24-35 Comprehensive metabolic panel - 11/04/17 07:41 Serum or plasma sodium measurement (moles/volume) 140 mmol/L 135-145 Serum or plasma potassium measurement (moles/volume) 3.9 mmol/L 3.6-5.0 Serum or plasma chloride measurement (moles/volume) 106 mmol/L 98-107 Carbon dioxide 26 mmol/L 21-32 Serum or plasma anion gap determination (moles/volume) 8 mmol/L 5-14 Serum or plasma urea nitrogen measurement (mass/volume) 13 mg/dL 7-18 Serum or plasma creatinine measurement (mass/volume) 0.69 mg/dL 0.60-1.30 Serum or plasma urea nitrogen/creatinine mass ratio 19 NRG Serum or plasma creatinine measurement with calculation of estimated glomerular filtration rate > NRG Serum or plasma glucose measurement (mass/volume) 117 mg/dL 70-105 Serum or plasma calcium measurement (mass/volume) 8.8 mg/dL 8.5-10.1 Serum or plasma total bilirubin measurement (mass/volume) 0.6 mg/dL 0.1-1.0 Serum or plasma alkaline phosphatase measurement (enzymatic activity/volume) 74 U/L 40-136 Serum or plasma aspartate aminotransferase measurement (enzymatic activity/ volume) 17 U/L 5-34 Serum or plasma alanine aminotransferase measurement (enzymatic activity/volume ) 14 U/L 0-55 Serum or plasma protein measurement (mass/volume) 6.6 g/dL 6.4-8.2 Serum or plasma albumin measurement (mass/volume) 3.4 g/dL 3.2-4.5 Lipid 1996 panel - 11/04/17 07:41 Serum or plasma triglyceride measurement (mass/volume) 149 mg/dL <150 Serum or plasma cholesterol measurement (mass/volume) 171 mg/dL < 200 Serum or plasma cholesterol in HDL measurement (mass/volume) 44 mg/ dL 40-60 Cholesterol in LDL [mass/volume] in serum or plasma by direct assay 101 mg/dL 1-129 Serum or plasma cholesterol in VLDL measurement (mass/volume) 30 mg/ dL 5-40 Capillary blood glucose measurement by glucometer (mass/volume) - 11/04/17 11: 00 Capillary blood glucose measurement by glucometer (mass/volume) 156 mg/dL 70-110 Encounters ACCT No. Visit Date/Time Discharge Status Pt. Type Provider Facility Loc./Unit Complaint [id number] 11/12/2017 10:10:00 11/12/2017 23:59:59 CLS Preadmit ASHLEY BANEGAS MD [facility] RAD SCREENING [id number] 11/04/2017 06:37:00 11/04/2017 14:45:00 DIS Outpatient FABY CHANDLER MD [facility] CATH CP,CAD,HTN [id number] 09/23/2017 10:00:00 09/23/2017 23:59:59 CLS Preadmit FABY CHANDLER MD [facility] CATH CP,CAD,HTN [id number] 08/06/2017 15:02:00 08/06/2017 18:01:00 DIS Emergency LAURA ALBA APRN [facility] ER VOMITING,COUGHING [id number] 03/04/2017 21:40:00 03/06/2017 08:04:00 DIS Outpatient ZOE WORKMAN DO [facility] SDC CHEST PAIN,CAD, HYPERGLYCEMIA [id number] 12/29/2016 09:56:00 01/05/2017 16:20:00 DIS Outpatient FABY CHANDLER MD [facility] CR STENT [id number] 11/14/2016 10:14:00 11/16/2016 00:01:00 DIS Outpatient FABY CHANDLER MD [facility] CR STENT [id number] 08/28/2016 17:28:00 08/28/2016 20:33:00 DIS Emergency AMNA VELA DO [facility] ER RUNNY NOSE;COUGH [id number] 07/21/2016 07:56:00 07/21/2016 09:58:00 DIS Emergency MEENU OWUSU MD [facility] ER FALL; L SIDE RIB PAIN [id number] 06/14/2016 18:45:00 06/17/2016 11:30:00 DIS Outpatient PATRICIO REAVES DO [facility] CATH CHEST PAIN W/ CAD; HYPERGLYCEMIA [id number] 05/16/2016 09:56:00 05/16/2016 13:37:00 DIS Emergency MEENU OWUSU MD [facility] ER SYNCOPE [id number] 04/26/2016 20:08:00 04/26/2016 20:30:00 DIS Emergency LAURA ALBA APRN [facility] ER R SIDE JAW/TOOTH PAIN [id number] 01/18/2016 07:52:00 01/18/2016 12:00:00 DIS Outpatient SHWETHA SALEH MD [facility] WOUNDCARE [id number] 12/17/2015 14:06:00 12/17/2015 14:30:00 DIS Outpatient FABY CHANDLER MD [facility] CR PTCA [id number] 11/23/2015 10:05:00 11/23/2015 23:59:59 CLS Outpatient SHWETHA SALEH MD [facility] RAD CELLULITIS [id number] 11/18/2015 16:31:00 11/18/2015 17:32:00 DIS Emergency LAURA ALBA APRN [facility] ER L BIG TOE POSS INFECTION [id number] 11/09/2015 11:54:00 11/13/2015 00:01:00 DIS Outpatient FABY CHANDLER MD [facility] CR PTCA [id number] 06/12/2015 22:16:00 06/14/2015 15:15:00 DIS Outpatient FABY CHANDLER MD [facility] CATH SYNCOPE,CHEST PAIN, VERTIGO,HYPOGLYCEMIA [id number] 05/20/2015 12:50:00 05/23/2015 15:34:00 DIS Inpatient FABY CHANDLER MD [facility] 4TH CELLULITIS R GROIN [id number] 05/15/2015 17:59:00 05/17/2015 14:50:00 DIS Inpatient GERALDINE HICKMAN, FABY Short [facility] CSD CHEST PAIN [id number] 05/07/2015 11:00:00 05/07/2015 23:59:59 CLS Outpatient SHARP, YUSUF A MACHINE ETCHER [facility] RAD NONRUPTURED CEREBRAL ANYURESM [id number] 01/14/2015 10:38:00 01/14/2015 11:29:00 DIS Emergency LAURA ALBA SPEECH CORRECTION CONSULTANT [facility] ER LAC ON R INDEX FINGER [id number] 06/24/2017 07:28:00 Document Registration [id number] 06/24/2017 07:28:00 Document Registration [id number] 06/24/2017 07:28:00 Document Registration [id number] 06/24/2017 07:28:00 Document Registration [id number] 06/24/2017 07:28:00 Document Registration [id number] 06/24/2017 07:28:00 Document Registration [id number] 06/24/2017 07:28:00 Document Registration [id number] 06/24/2017 07:28:00 Document Registration [id number] 01/14/2015 10:38:00 Document Registration [id number] 01/14/2015 10:38:00 Document Registration [id number] 08/29/2008 12:02:00 Document Registration [id number] 02/18/2008 10:26:00 Document Registration [id number] 11/10/2007 10:50:00 Document Registration [id number] 08/13/2007 14:57:00 Document Registration [id number] 10/29/2016 12:08:00 Document Registration [id number] 11/18/2017 09:00:00 11/18/2017 23:59:59 CLS Outpatient ASHLEY BANEGAS [facility]
[2017-12-09 01:23] LABS: BASOPHILS % (AUTO) 0 % (0-10); EOSINOPHILS # (AUTO) 0.4 10^3/uL (0.0-0.3); EOSINOPHILS % (AUTO) 5 % (0-10); HEMATOCRIT 30 % (35-52); HEMOGLOBIN 9.9 G/DL (11.5-16.0); LYMPHOCYTES # (AUTO) 2.2 X 10^3 (1.0-4.0); LYMPHOCYTES % (AUTO) 29 % (12-44); MEAN CORPUSCULAR HEMOGLOBIN 30 PG (25-34); MEAN CORPUSCULAR HGB CONC 33 G/DL (32-36); MEAN CORPUSCULAR VOLUME 89 FL (80-99); MEAN PLATELET VOLUME 10.2 FL (7.4-10.4); MONOCYTES # (AUTO) 0.7 X 10^3 (0.0-1.0); MONOCYTES % (AUTO) 9 % (0-12); NEUTROPHILS # (AUTO) 4.3 X 10^3 (1.8-7.8); NEUTROPHILS % (AUTO) 57 % (42-75); PLATELET COUNT 270 10^3/uL (130-400); RED BLOOD COUNT 3.35 10^6/uL (4.35-5.85); RED CELL DISTRIBUTION WIDTH 12.7 % (10.0-14.5); WHITE BLOOD COUNT 7.6 10^3/uL (4.3-11.0)
--- NOTE | 2017-12-09 01:23 | ED Respiratory ---
General Chief Complaint: Respiratory Problems Stated Complaint: SOA Nursing Triage Note: PT BROUGHT TO ED VIA EMS. PT STATES SHE HAD OPEN HEART SURGERY ON 12/02/2017 AND WAS JUST D/C'D FROM THE HOSPITAL YESTERDAY. PT STATES SHE WAS DOING HER INCENTIVE SPIROMETRY WHEN SHE BECAME SHORT OF BREATH. Source: patient (PT IS SOMEWHAT LIMITED HISTORIAN--NOT WANTING TO ANSWER QUESTIONS--STATES "YOU'LL JUST HAVE TO ASK MY "-- IS NOT PRESENT AT THIS TIME. ), EMS History of Present Illness Date Seen by Provider: December 09, 2017 Time Seen by Provider: 00:58 Initial Comments PT ARRIVES VIA EMS FROM HOME PT HAD 3 VESSEL CABG AT ON 12/02/17, AND WAS DISMISSED TODAY/YESTERDAY , GETTING HOME AROUND 1600 12/08/17 STATES SHE HAD LAID DOWN TO GO TO BED AROUND 2300 TONIGHT AND WAS TRYING TO DO INCENTIVE SPIROMETRY AND SHE BEGAN GETTING SHORT OF BREATH PT STATES SHE HAS COPD, BUT HAS NOT USED INHALER OR NEBULIZER TODAY PT STATES SHE WAS SUPPOSED TO GET STARTED ON HOME OXYGEN WHEN SHE WAS DISMISSED FROM , BUT STATES "THEY DIDN'T SEND ME HOME WITH A PRESCRIPTION" OR ARRANGE FOR IT WHEN SHE WAS ACTUALLY DISMISSED, ACCORDING TO PT PT HAS HAD PRODUCTIVE COUGH, SINCE BEFORE SURGERY PT DENIES FEVER NO SWELLING IN LEGS/ FEET. ONLY HAS PAIN IN CHEST WITH COUGHING NO PALPITATIONS PT SMOKED 3 PPD, STATES SHE HAS QUIT, BUT STILL SMOKES HEAVILY PT STATES SHE HAS BEEN IN THE HOSPITAL FOR 2 WEEKS. STATING THAT SHE HAD TO HAVE HER TEETH PULLED THE WEEK BEFORE , SO SHE COULD HAVE THE SURGERY ON HER HEART. AND WAS HOSPITALIZED FOR THAT--PRIOR TO HER HEART SURGERY. PT IS INSULIN-DEPENDENT DIABETIC, BUT HAS NOT CHECKED HER BLOOD SUGAR SINCE SHE GOT HOME PT HAS NOT TAKEN ANY OF HER EVENING MEDICATIONS STATES SHE HAS HAD MULTIPLE MEDICATION CHANGES SINCE SHE WAS DISMISSED TODAY, BUT DID NOT BRING ANY OF THEM WITH HER AND HAS NO IDEA WHAT ANY OF HER MEDICATIONS ARE NOW. 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 BANEGAS AT [facility] COLLET DRILLER: DR. CHANDLER Allergies and Home Medications Allergies Coded Allergies: Fish Containing Products (Unverified Allergy, Unknown, 05/17/15) FROM UNCODED ALLERGIES ketoprofen (Verified Allergy, Unknown, 03/01/08) mushroom (Unverified Allergy, Unknown, 05/17/15) FROM UNCODED ALLERGIES Home Medications Amlodipine Besylate 10 Mg Tablet, 10 MG PO DAILY Prescribed by: FABY CHANDLER on 03/06/17 112 Aspirin 81 Mg Tablet.dr, 81 MG PO DAILY, (Reported) Atorvastatin Calcium 40 Mg Tablet, 40 MG PO HS Prescribed by: FABY CHANDLER on 03/06/171120 Calcium Carbonate 300 Mg Tab.chew, 300 MG PO DAILY, (Reported) Clopidogrel Bisulfate 75 Mg Tablet, 75 MG PO DAILY Prescribed by: FABY CHANDLER on 03/06/171120 Furosemide 40 Mg Tablet, 40 MG PO DAILY, (Reported) Ibuprofen 200 Mg Tablet, 400 MG PO Q6H PRN for PAIN-MILD, (Reported) Insulin Aspart 100 Unit/1 Ml Susp, 75 UNITS SQ AC, (Reported) Insulin Detemir 100 Unit/1 Ml Insuln.pen, 88 UNITS SQ BID, (Reported) Isosorbide Mononitrate 30 Mg Tab.er.24h, 30 MG PO DAILY, (Reported) Lisinopril 40 Mg Tablet, 40 MG PO DAILY, (Reported) Mag Hydrox/Aluminum Hyd/Simeth 355 Ml Oral.susp, 355 ML PO DAILY, (Reported) Metoprolol Succinate 100 Mg Tab.er.24h, 100 MG PO DAILY, (Reported) Nitroglycerin 0.4 Mg Tab.subl, 0.4 MG SL PRN PRN for CHEST PAIN Prescribed by: FABY CHANDLER on 03/06/171120 Ondansetron 8 Mg Tab.rapdis, 8 MG PO Q6H PRN for NAUSEA/VOMITING-1ST LINE Prescribed by: LAURA ALBA on 08/06/17 170 Polyethylene Glycol 3350 17 Gm Powd.pack, 17 GM PO DAILY PRN for CONSTIPATION- 1ST LINE, (Reported) Patient Home Medication List Home Medication List Reviewed: Yes Review of Systems Constitutional: no symptoms reported; No chills, No diaphoresis, No fever EENTM: see HPI Respiratory: see HPI, cough, orthopnea, short of breath; No wheezing Cardiovascular: see HPI, chest pain (SURGICAL SITE PAIN WITH COUGHING); No edema, No palpitations, No syncope; vascular heart diseas Gastrointestinal: no symptoms reported Genitourinary: no symptoms reported Musculoskeletal: see HPI Skin: no symptoms reported Psychiatric/Neurological: No Symptoms Reported Hematologic/Lymphatic: No Symptoms Reported Immunological/Allergic: no symptoms reported Past Ayhwndn-Mexeob-Yddyjm Hx Patient Social History Alcohol Use: Denies Use Smoking Status: Former Smoker (3 PPD, QUIT 01/2017) Type Used: Cigarettes 2nd Hand Smoke Exposure: Yes ( IS HEAVY SMOKER) Recent Foreign Travel: No Contact w/Someone Who Travel: No Recent Infectious Disease Expo: No Recent Hopitalizations: Yes (CABG AT --DISMISSED 12/08/17 ) Immunizations Up To Date Tetanus Booster (TDap): Less than 5yrs PED Vaccines UTD: No Date of Pneumonia Vaccine: May 11, 2015 Date of Influenza Vaccine: Apr 12, 2016 Seasonal Allergies Seasonal Allergies: No Past Medical History Surgeries: Yes (TUBAL LIGATION,GALLBLADDER REMOVED,TONSILECTOMY,CARPAL TUNNEL SURGERY; RIGHT KNEE SCOPE X 2; MULTIPLE CARDIAC CATHS WITH STENTS X 13, PER PT ; 3 VESSEL CABG 12/02/17 AT ; HEMORRHOIDECTOMY; PT STATES " PART OF CERVIX REMOVED" --DOES NOT KNOW IF SHE HAD FULL HYSTERECTOMY OR NOT) Cardiac, CABG, Coronary Stent, Gallbladder, Orthopedic, Rectal, Tonsillectomy, 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 Respiratory: Yes Chronic Bronchitis, COPD Currently Using CPAP: No Currently Using BIPAP: No Cardiac: Yes (STENTS X 13; 3 VESSEL CABG 12/02/17 AT ) Coronary Artery Disease, Heart Attack, High Cholesterol, Hypertension Neurological: Yes (MILD SPEECH IMPAIRMENT) Neuropathy, Stroke, TIA 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 Disorders: No Female 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 Disorders: Denies [employer]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, Menopausal Sexually Transmitted Disease: No HIV/AIDS: No Genitourinary: No Gastrointestinal: Yes Gastroesophageal Reflux, Hemorrhoids, Ulcer Musculoskeletal: Yes (BILATERAL CARPAL TUNNEL, RIGHT KNEE SCOPE X 2) Arthritis Endocrine: Yes Diabetes, Insulin dep HEENT: Yes (TEETH REMOVED) Cancer: Yes (S/P SURGERY ONLY) Cervical Did You Recieve Any Treatments: Yes What Type of Treatment Did You: Surgical Intervention Psychosocial: Yes Anxiety Integumentary: No Blood Disorders: No Family Medical History Alcoholism Arthritis Asthma Cardiovascular disease Cataracts Colon cancer Completed stroke Coronary thrombosis Diabetes mellitus Gastroenteritis Glaucoma Headache disorder Hypertension Kidney disease Psychosocial problem Respiratory disorder Seizure disorder Severe allergy Thyroid disease Visual disorder Heart Disease, Hypertension Physical Exam Vital Signs Vital Signs - First Documented 12/09/17 00:53 Temp 97.6 Pulse 91 Resp 17 B/P (MAP) 150/92 (111) Pulse Ox 96 O2 Delivery Room Air O2 Flow Rate 3.00 Capillary Refill : Less Than 3 Seconds General Appearance: WD/WN, no apparent distress, other (SLIGHTLY LETHARGIC, SOMEWHAT DROWSY, SPEECH SLIGHTLY SLURRED; REEKS OF CIGARETTES; APPEARS MUCH OLDER THAN STATED AGE. 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 II-XII nml as tested, no motor/sensory deficits, alert, oriented x 3 Skin: warm/dry, pallor, other (HIRSUITE) Progress/Results/Core Measures Suspected Sepsis Recent Fever Within 48 Hours: No Infection Criteria Present: None New/Unexplained Altered Menta: No Sepsis Screen: No Definite Risk SIRS Temperature:97.6 Pulse: 91 Respiratory Rate: 17 Laboratory Tests 12/09/17 00:56: White Blood Count 7.6 Blood Pressure 150 /92 Mean: 111 Laboratory Tests 12/09/17 00:56: Creatinine 0.70, INR Comment 1.1, Platelet Count 270, Total Bilirubin 0.8 Results/Orders Lab Results Laboratory Tests Test 12/09/17 00:56 Range/Units White Blood Count 7.6 4.3-11.0 10^3/uL Red Blood Count 3.35 L 4.35-5.85 10^6/uL Hemoglobin 9.9 L 11.5-16.0 G/DL Hematocrit 30 L 35-52 % Mean Corpuscular Volume 89 80-99 FL Mean Corpuscular Hemoglobin 30 25-34 PG Mean Corpuscular Hemoglobin Concent 33 32-36 G/DL Red Cell Distribution Width 12.7 10.0-14.5 % Platelet Count 270 130-400 10^3/uL Mean Platelet Volume 10.2 7.4-10.4 FL Neutrophils (%) (Auto) 57 42-75 % Lymphocytes (%) (Auto) 29 12-44 % Monocytes (%) (Auto) 9 0-12 % Eosinophils (%) (Auto) 5 0-10 % Basophils (%) (Auto) 0 0-10 % Neutrophils # (Auto) 4.3 1.8-7.8 X 10^3 Lymphocytes # (Auto) 2.2 1.0-4.0 X 10^3 Monocytes # (Auto) 0.7 0.0-1.0 X 10^3 Eosinophils # (Auto) 0.4 H 0.0-0.3 10^3/uL Basophils # (Auto) 0.0 0.0-0.1 10^3/uL Prothrombin Time 14.6 12.2-14.7 SEC INR Comment 1.1 0.8-1.4 Activated Partial Thromboplast Time 29 24-35 SEC Sodium Level 138 135-145 MMOL/L Potassium Level 4.2 3.6-5.0 MMOL/L Chloride Level 100 98-107 MMOL/L Carbon Dioxide Level 25 21-32 MMOL/L Anion Gap 13 5-14 MMOL/L Blood Urea Nitrogen 9 7-18 MG/DL Creatinine 0.70 0.60-1.30 MG/DL Estimat Glomerular Filtration Rate > 60 BUN/Creatinine Ratio 13 Glucose Level 140 H 70-105 MG/DL Calcium Level 9.3 8.5-10.1 MG/DL Magnesium Level 1.6 L 1.8-2.4 MG/DL Total Bilirubin 0.8 0.1-1.0 MG/DL Aspartate Amino Transf (AST/SGOT) 17 5-34 U/L Alanine Aminotransferase (ALT/SGPT) 10 0-55 U/L Alkaline Phosphatase 72 40-136 U/L Total Creatine Kinase 34 29-168 U/L Creatine Kinase MB 1.1 <6.6 NG/ML Troponin I < 0.30 <0.30 NG/ML B-Type Natriuretic Peptide 574.8 H <100.0 PG/ML Total Protein 6.9 6.4-8.2 GM/DL Albumin 3.4 3.2-4.5 GM/DL My Orders Orders - AMNA VELA DO Cbc With Automated Diff (12/09/17 01:10) Comprehensive Metabolic Panel (12/09/17 01:10) Creatine Kinase (12/09/17 01:10) Creatine Kinase Mb (12/09/17 01:10) Partial Thromboplastin Time (12/09/17 01:10) Protime With Inr (12/09/17 01:10) Troponin I (12/09/17 01:10) Chest 1 View, Ap/Pa Only (12/09/17 01:10) O2 (12/09/17 01:10) Ekg Tracing (12/09/17 01:10) BNP (12/09/17 01:10) Monitor-Rhythm Ecg Trace Only (12/09/17 01:10) Magnesium (12/09/17 01:10) Albuterol/Ipra Inhalation Soln (Duoneb I (12/09/17 01:15) Rt Request For Service (12/09/17 01:10) Svn Small Volume Nebulizer (12/09/17 01:10) Furosemide Injection (Lasix Injection) (12/09/17 02:15) Methylprednisolone Sod Succ (Solu-Medrol (12/09/17 02:15) Medications Given in ED Current Medications Medications Dose Ordered Sig/Kelli Route Start Time Stop Time Status Last Admin Dose Admin Albuterol/ Ipratropium 3 ml ONCE ONCE INH 12/09/17 01:15 12/09/17 01:16 DC 12/09/17 01:22 3 ML Furosemide 80 mg ONCE ONCE IVP 12/09/17 02:15 12/09/17 02:16 DC 12/09/17 02:29 80 MG Methylprednisolone Sodium Succinate 125 mg ONCE ONCE IVP 12/09/17 02:15 12/09/17 02:16 DC 12/09/17 02:22 125 MG Vital Signs/I&O 12/09/17 12/09/17 12/09/17 00:53 00:53 01:22 Temp 97.6 Pulse 91 Resp 17 B/P (MAP) 150/92 (111) Pulse Ox 96 96 O2 Delivery Room Air Nasal Cannula Nasal Cannula O2 Flow Rate 3.00 3.00 Capillary Refill : Less Than 3 Seconds Blood Pressure Mean: 111 Progress Note : Progress Note GIVEN NEB TREATMENT WITH INCREASED AERATION AND DECREASED COUGHING NO DETERIORATION IN PT'S CONDITION DURING ER STAY PT ONLY C/O CHEST/INCISIONAL PAIN WITH COUGHING, AND DID ASK FOR PAIN MEDICATION FOR INCISIONAL PAIN JUST PRIOR TO BEING TRANSPORTED TO THE FLOOR PT DID NOT C/O SHORTNESS OF BREATH FOR ENTIRE ER STAY--STATES O2 HELPED ECG Initial ECG Impression Date: December 09, 2017 Initial ECG Impression Time: 00:58 Initial ECG Rate: 90 Initial ECG Rhythm: Normal Sinus (RBBB, OLD ANTERIOR, INFERIOR AND LATERAL INFARCTS) Initial ECG Comparisson: Unchanged (FROM 11/04/17) Diagnostic Imaging Comments CXR--MILD CHF, BIBASILAR ATELECTASIS, SMALL LEFT PLEURAL EFFUSION--PENDING RADIOLOGIST REVIEW Reviewed: Reviewed by Me Departure Communication (Admissions) 214/217--PAGED/ SPOKE WITH DR. PACHECO. ADVISES TO ADMIT TO MEDICINE AND HAVE DR. CHANDLER CONSULTED IN THE MORNING 219--SPOKE WITH DR. WORKMAN, CHECKERER HAND FOR [facility], ACCEPTS PT FOR ADMIT. Impression Primary Impression: S/P CABG Additional Impressions: CHF (congestive heart failure) COPD (chronic obstructive pulmonary disease) Disposition: ADMITTED INPATIENT Condition: Improved Admissions Decision to Admit Reason: Admit from ER (General) Decision to Admit/Date: December 09, 2017 Time/Decision to Admit Time: 02:20 Departure-Patient Inst. Referrals: ASHLEY BANEGAS MD (PCP/Family) Primary Care Physician AMNA VELA DO December 09, 2017 01:23
[2017-12-09 01:32] LABS: INR 1.1 (0.8-1.4); PROTHROMBIN TIME PATIENT 14.6 SEC (12.2-14.7)
[2017-12-09 01:45] LABS: ALANINE AMINOTRANSFERASE 10 U/L (0-55); ALBUMIN 3.4 GM/DL (3.2-4.5); ALKALINE PHOSPHATASE 72 U/L (40-136); BILIRUBIN,TOTAL 0.8 MG/DL (0.1-1.0); BUN/CREATININE RATIO 13; CALCIUM 9.3 MG/DL (8.5-10.1); CARBON DIOXIDE 25 MMOL/L (21-32); CHLORIDE 100 MMOL/L (98-107); CREATINE KINASE 34 U/L (29-168); GFR ESTIMATED > 60; GLUCOSE 140 MG/DL (70-105); MAGNESIUM 1.6 MG/DL (1.8-2.4); POTASSIUM 4.2 MMOL/L (3.6-5.0); SODIUM 138 MMOL/L (135-145); TOTAL PROTEIN 6.9 GM/DL (6.4-8.2)
[2017-12-09 01:52] LABS: CREATINE KINASE MB 1.1 NG/ML (<6.6)
[2017-12-09] MEDS ORDERED: FUROSEMIDE 40 MG/4 ML INJ (LASIX) IVP ONE (02:15)
[2017-12-09] MEDS ORDERED: methylPREDNISolone 125 MG (Solu-MEDROL) VIAL IVP ONE (02:15)
--- OUTSIDE RECORDS SUMMARY | 2017-12-09 02:57 | XMS REPORT | Encounter Summary ---
Author Author [facility] Organization [facility] Address Unknown Phone Unavailable Care Team Providers Care [place] Machine Operator Name Role Phone Deann Parker MD PCP Encounter Details Date Type Department Care Team Description 12/08/2017 Pharmacy Visit [facility] [address] [place] [address] Social History Tobacco Use Types Packs/Day Years [...]
--- OUTSIDE RECORDS SUMMARY | 2017-12-09 02:57 | XMS REPORT | Clinical Summary ---
Author Author [facility] Organization [facility] Address Unknown Phone Unavailable Care Team Providers Care Waiter/Waitress Tourist Class Name Role Phone Ashley Banegas MD PCP Source Comments Some departments are not documenting in the electronic medical record. If you do not see the information that you expected, contact Release of Information in the Health Information Management department at [phone] for further assistance in locating additional records.[facility] Allergies Active Allergy Reactions Severity Noted Date [...] food. 18 tabletIndications: Coronary artery disease involving creek coronary artery of creek heart with unstable angina pectoris (HCC) evolocumab [...] daily. 18 solnIndications: Coronary artery disease involving creek coronary artery of creek heart with unstable angina pectoris (HCC) insulin aspart U-100 Inject 0-14 Units under 45 mL 3 12/09/19 Active (NOVOLOG FLEXPEN) 100 the skin three times 18 unit/mL injection daily with meals. Inject PENIndications: Coronary 8 units under the skin artery disease involving three times daily with creek coronary artery of meals. Plus 0-14 units creek heart with on sliding scale. unstable angina [...] at bedtime. PENIndications: Coronary artery disease involving creek coronary artery of creek heart with unstable angina pectoris (HCC) insulin aspart U-100 Inject 10 Units under the 45 mL 3 11/26/19 Discontin (NOVOLOG FLEXPEN) 100 skin three times daily 18 18 ued unit/mL injection with meals. PENIndications: Coronary artery disease involving creek coronary artery of creek heart with unstable angina pectoris (HCC) insulin detemir(+) Inject 35 Units under the 10 mL 12 11/26/1912/08 Discontin (LEVEMIR) 100 unit/mL skin at bedtime daily. 18 18 ued solnIndications: Coronary artery disease involving creek coronary artery of creek heart with unstable angina pectoris (HCC) insulin aspart U-100 Inject 0-14 Units under 45 mL 3 11/26/19 Discontin (NOVOLOG FLEXPEN) 100 the skin three times 18 18 ued unit/mL injection daily with meals. PENIndications: Coronary artery disease involving creek coronary artery of creek heart with unstable angina pectoris (HCC) Active Problems Problem Noted Date Acute on chronic combined systolic and diastolic heart failure, NYHA class 12/02/2017 2 (HCC) On mechanically assisted ventilation ([facility]) 12/02/2017 CAD (coronary artery disease) 11/23/2017 Overview: 11/24/17-cardiac catheterization revealed an occluded mid left anterior descending artery with faint rpyk-bt-qdbk collaterals, 90% mid second obtuse marginal stenosis with a 70% ostial circumflex stenosis and 95% proximal posterior lateral stenosis. Bilateral carotid artery disease ([facility]) 11/17/2017 Overview: 05/04/17 - Carotid U/S: mild 1-39% stenosis, nonobstructive disease bilaterally. Coronary artery disease involving creek coronary artery of creek heart 02/2018 with unstable angina pectoris ([facility]) Overview: 03/05/17 - C: Total occlusion of [...] LV, EF 60%, normal LVEDP. 06/16/16 - [facility]: Severe in-stent restenosis in prox and [...] circumflex, fairly small artery. Normal LVEDP. 06/2015 [facility]: 2.5 x 18 mm Resolute Integrity stent to mid circumflex, prox lesion is 40% stenosed, distal lesion 80%. Patent multiple stents in prox, mid, and distal LAD w/ mild in-stent restenosis. Patent stent in RCA w/ mild disease in distal RCA. 05/2015 [facility]: 3.5 x 12 mm & 2.75 x 24 mm Promus Premier overlapping stents to mid RCA. Patent stents in the LAD. Severe stenosis at distal LAD, 70% prox circumflex and 70-80% mid to distal circ/OM branch. [facility]: 2.5 x 24 mm and 2.5 x 20 mm Promusto distal and proximal LAD, 50% prox circumflex, 70-80% mid to distal circumflex involving the proximal portion of OM1, 50-60% mid RCA, LV anterior wall hypokinetic. EF 40%. PAD (peripheral artery disease) ([facility]) 11/17/2017 Essential hypertension 11/17/2017 Mixed hyperlipidemia 11/17/2017 History of tobacco abuse 11/17/2017 Type 2 diabetes mellitus with complication, with long-term current use of insulin ([facility]) Tooth decay 11/16/2017 Overview: Added automatically from request for surgery [id number] Encounters Date Type Specialty Care Team Description 12/08/2017 Pharmacy Visit 12/04/2017 Pharmacy Visit 12/02/2017 [facility] Jeimy Yi MD Coronary artery disease - Encounter involving creek coronary 12/08/2017 artery of creek heart with unstable angina pectoris (HCC) 12/02/2017 Procedure Pass 12/02/2017 Surgery Jeimy Yi MD BYPASS GRAFT CORONARY ARTERY x3, LEFT INTERNAL MAMMARY ARTERY HARVEST, LEFT ENDOSCOPIC SAPHENOUS VEIN HARVEST 12/01/2017 PAC Office Anesthesiology Jeimy Yi MD Coronary artery disease Visit involving creek heart, angina presence unspecified, unspecified vessel or lesion type 12/01/2017 [facility] Cardiology Jeimy Yi MD Arrived Encounter 12/01/2017 Anesthesia Will Abrams MD Event 11/26/2017 Pre-Admit Anesthesiology Jeimy Yi MD Coronary artery disease Orders Only involving creek heart, angina presence unspecified, unspecified vessel or lesion type (Primary Dx) 11/24/2017 Pharmacy Visit 11/24/2017 Anesthesia Meghan Iniguez MD Event 11/24/2017 Procedure Pass 11/24/2017 Surgery Dena Gayle DDS EXTRACTION TEETH #6, 7, 8, 9, 10, 11, 14, 22-27 11/23/2017 [facility] Cardiology Itaol Russo PA-C Encounter 11/23/2017 [facility] Vinod Cortes MD Coronary artery disease - Encounter involving creek coronary 11/25/2017 artery of creek heart with unstable angina pectoris (HCC) 11/23/2017 [...] 11/12/2017 Telephone Cardiology Mamie Woodard RN Procedure (INJECTOR ASSEMBLER - ref by Dr. Hughes) from Last [...] HBA1C 05/26/2018 11/23/2017 Implants Implanted Type Area Nurse Tech Device Expiration Model / Identifier Date Serial / Lot Plate Acutie Sternal Closure - ACUTE [id number] / [id number] INNOVATIONS [id number] / Implanted: Qty: 2 on 12/02/2017 by [id number] Jeimy Yi MD Plate Acutie Sternal Closure - ACUTE [id number] / [id number] [employer]OVATIONS [id number] Implanted: Qty: 1 on 12/02/2017 by / Jeimy Yi MD [id number] Procedures Procedure Name Priority Date/Time Associated Diagnosis [...] ure diagnosis and valvular assessment CPT codes: 06825 - AYALA 2D imaging (w or w/o M-mode) including probe placement, image acquisitio n, interpreta tion & report, 56195 - PWD and/or CWD f/u or limited study and 36363 - Color flow velocity mapping Patient location: [...] anterior: normal Apical inferior: hypokineti c Long [place] View Basal anterosept al: normal Basal inferolate ral: hypokineti c Mid anterosept al: normal Mid inferolate ral: normal Apical lateral: hypokineti c Apical septal: normal Jackson: hypokineti c Mid Short [place]ord View Mid anterosept al: normal Mid anterior: [...] CANDY STRONG Authorized by: CANDY STRONG ANESTHESIA PULMONARY [...] MG/DL Specimen Performing Laboratory MAIN LAB [address] [place] [address] * CBC (12/07/2017 4:23 AM) Only the [...] Specimen Performing Laboratory Blood MAIN LAB [address] [place] [address] * MAGNESIUM (12/07/2017 4:23 AM) Only the most recent of 8 results within the time period is included. Component Value Ref Range Magnesium 2.0 1.6 - 2.6 mg/dL Specimen Performing Laboratory Blood MAIN LAB [address] [place] [address] * BASIC METABOLIC PANEL (12/07/2017 4:23 AM) [...] Performing Laboratory Blood [facility] MAIN LAB [address] [place] [address] * CHEST SINGLE VIEW (12/05/2017 7:03 AM) [...] period is included. Component Value Ref Range A9Byp-Wwwpb Venous 61.3 % Specimen Performing Laboratory Blood MAIN LAB [address] [place] [address] * POTASSIUM (12/03/2017 2:00 AM) Only the most recent of 2 results within the time period is included. Component Value Ref Range Potassium 4.0 3.5 - 5.1 MMOL/L Specimen Performing Laboratory Blood MAIN LAB [address] [place] [address] * BLOOD GASES, ARTERIAL (12/03/2017 2:00 AM) Component Value Ref Range pH-Arterial 7.36 7.35 - 7.45 pCO2-Arterial 39 35 - 45 MMHG pO2-Arterial 137 (H) 80 - 100 MMHG Base Deficit-Arterial 3.1 MMOL/L O2 Sat-Arterial 98.7 95 - 99 % Qatpvrdxtfs-OHH-Iny 21.8 21 - 28 MMOL/L Specimen Performing Laboratory Blood, arterial - Blood MAIN LAB [address] [place] [address] * POC BLOOD GAS ARTERIAL (12/03/2017 12:52 AM) Only the most recent of 9 results within the time period is included. Component Value Ref Range PH-ART-POC 7.39 7.35 - 7.45 FJN4-NFU-JII 37 35 - 45 MMHG PO2-ART-POC 150 (H) 80 - 100 MMHG Base Def-ART-POC 3.0 MMOL/L O2 Sat-ART-POC 99.0 95 - 99 % Lvmceovrlkb-MZF-RPE 22.2 21 - 28 MMOL/L Specimen Performing Laboratory MAIN LAB [address] [place] [address] * POC SODIUM (12/03/2017 12:52 AM) Only the most recent of 8 results within the time period is included. Component Value Ref Range Sodium-POC 145 137 - 147 MMOL/L Specimen Performing Laboratory MAIN LAB [address] [place] [address] * POC POTASSIUM (12/03/2017 12:52 AM) Only the most recent of 8 results within the time period is included. Component Value Ref Range Potassium-POC 4.0 3.5 - 5.1 MMOL/L Specimen Performing Laboratory [facility] [address] [place] [address] * POC IONIZED CALCIUM (12/03/2017 12:52 AM) Only the most recent of 8 results within the time period is included. Component Value Ref Range Ionized Calcium-POC 1.16 1.0 - 1.3 MMOL/L Specimen Performing Laboratory [facility] [address] [place] [address] * POC HEMATOCRIT (12/03/2017 12:52 AM) Only the most recent of 8 results within the time period is included. Component Value Ref Range Hemoglobin POC 8.5 (L) 12.0 - 15.0 GM/DL Hematocrit POC 25.0 (L) 36 - 45 % Specimen Performing Laboratory [facility] [address] [place] [address] * PTT (APTT) (12/02/2017 4:30 PM) Only the most recent of 2 results within the time period is included. Component Value Ref Range APTT 29.3 21.0 - 39.0 SEC Specimen Performing Laboratory Blood [facility] [address] [place], [place] [id number] * PROTIME INR (PT) (12/02/2017 4:30 PM) Only the most recent of 2 results within the time period is included. Component Value Ref Range INR 1.1 0.8 - 1.2 Specimen Performing [address] Blood [facility] [address] [place] [address] * LINE PLCMT 1V CXR (12/02/2017 4:18 [...] mediastinal drain are noted. A right IJ [place]-Brian catheter is seen with distal tip overlying [...] mediastinal drain are noted. A right IJ [place]-Brian catheter is seen with distal tip overlying [...] Specimen Performing Laboratory Blood MAIN LAB [address] [place] [address] * TYPE & CROSSMATCH (12/01/2017 11:55 AM) Component Value Ref Range Units Ordered 0 Crossmatch Expires 12/04/2017 Record Check FOUND ABO/RH(D) A POS Antibody Screen NEG Electronic Crossmatch YES Specimen Performing Laboratory Blood MAIN LAB [address] [place] [address] * TELEMETRY STRIPS-SCAN (11/26/2017 5:28 PM) Narrative [...] 62 years old, intracranial aneurysm. TECHNIQUE: 3D gyeb-rb-bpizpyftgvbk of the [place] was performed without contrast. MRA [...] 62 years old, intracranial aneurysm. TECHNIQUE: 3D caol-tu-psxtkf images of the [place] was performed without contrast. MRA [...] 5 Specimen Performing Laboratory Urine MAIN LAB [address] [place] [address] * URINALYSIS DIPSTICK REFLEX TO CULTURE (11/23/2017 2:52 PM) Component Value Ref Range Color,UA YELLOW Turbidity,UA CLEAR CLEAR-CLEAR Specific [place]-Urine 1.050 (H) 1.003 - 1.035 pH,UA 5.0 5.0 - 8.0 Protein,UA NEG NEG-NEG Glucose,UA 3+ (A) NEG-NEG Ketones,UA NEG NEG-NEG Bilirubin,UA NEG NEG-NEG Blood,UA 1+ (A) NEG-NEG Urobilinogen,UA NORMAL NORM-NORMAL Nitrite,UA NEG NEG-NEG Leukocytes,UA 3+ (A) NEG-NEG Urine Ascorbic Acid, UA NEG NEG-NEG Specimen Performing Laboratory Urine MAIN LAB [address] [place] [address] * CULTURE-URINE W/SENSITIVITY (11/23/2017 2:52 PM) Component Value Ref Range Battery Name URINE CULTURE Specimen Description URINE Special Requests NONE Culture <10,000 organisms/ml MIXED CONTAMINANTS Report Status FINAL 11/24/2017 Specimen Performing Laboratory Urine MAIN LAB [address] [place] [address] * PANOREX EXAM (11/23/2017 2:41 PM) Specimen [...] history: pre-op eval. Coronary artery disease involving creek coronary artery of creek heart with unstable angina pectoralis Comparison: None. . Findings: The heart size and pulmonary vascularity are within normal limits. The lungs are clear. No consolidation or pleural effusion is identified. Surgical clips overlie the right upper quadrant of the abdomen. . Procedure Note Interface, Radiant Results - 11/23/2017 2:49 PM CDT CHEST 2 VIEWS . Clinical history: pre-op eval. Coronary artery disease involving creek coronary artery of creek heart with unstable angina pectoralis Comparison: None. 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 Flowers LV mass 203.43 66 - 150 g RWT 0.53 <=0.42 Cardiology Ultrasound Siemens PC4900 Machine Left Ventricle Mass Index 114.93 44 [...] % FEV1-Pre 1.94 L FEV1-%Pred-Pre 83 % VSG4429-Bms 2.73 L/sec MMM4462-%Pred-Pre 128 % VCSVC-Pre 2.44 L ICSVC-Pre 0.83 [...] ml/min/mmHg/L Specimen Performing Laboratory PFT MAIN [address] [place] [address] Narrative Clinical history:->pre-op eval Is this a pre-surgical evaluation?->Yes * TYPE & SCREEN (NOT CROSSMATCH ELIGIBLE) (11/23/2017 12:50 PM) Component Value Ref Range ABO/RH(D) A POS Antibody Screen NEG Blood Component Type RED CELL GROUP Specimen Performing Laboratory Blood, venous - Blood [facility] MAIN LAB [address] [place] [address] * PLAVIX RESISTANCE (PLATELETWORKS) (11/23/2017 12:18 PM) Component Value Ref Range Platelet Inhibition 3 0 - 15 % Comment: Normal ADP inhibition should be less than 15%. Therapeutic (Plavix and other P2Y 12) levels should be greater than 30%. Specimen Performing Laboratory Blood MAIN LAB [address] [place] [address] * BNP (B-TYPE NATRIURETIC PEPTI) (11/23/2017 11:32 AM) Component Value Ref Range B Type Natriuretic 345.0 (H) 0 - 100 PG/ML Peptide Specimen Performing Laboratory Blood MAIN LAB [address] [place] [address] * HEMOGLOBIN A1C (11/23/2017 11:32 AM) Component Value Ref Range Hemoglobin A1C 10.4 (H) 4.0 - 6.0 % Comment: The ADA recommends that most patients with type 1 and type 2 diabetes maintain an A1c level <7%. Specimen Performing Laboratory Blood MAIN LAB [address] [place] [address] * CARDIAC CATH REPORT (11/23/2017 11:10 AM) Specimen Performing Laboratory OTHER OUTSIDE LAB Procedure Note Vinod Cortes MD - 11/23/2017 11:10 AM CDT [facility] CARDIAC CATHETERIZATION REPORT Page 2 NIMISHA Condon : 1955 [facility]#: [id number] MR #/Billing ID #: [id number] / [id number] DATE: 11/23/2017 HIDES AND SKINS COLORER: Vinod Cortes MD DICTATING PROVIDER: Vinod Cortes MD REFERRING PHYSICIAN: ASLHEY BANEGAS PROCEDURES PERFORMED: 1. Left heart catheterization. 2. Selective left and right coronary cineangiograms. PROCEDURE: Ms. Jaramillo is a 62-year-old female who presented with a history of coronary artery disease and recent cardiac catheterization suggesting chronic total occlusion of the mid LAD. On arrival to slab tripper, she was hemodynamically stable and pain free. Moderate IV conscious sedation was monitored and administered by myself, nursing, and technical staff for a total duration of 30 minutes. The bilateral groins were then prepped and draped in typical fashion. We infiltrated the right groin with approximately 20 mL of 1% lidocaine and advanced a 5-Sammarinese arterial sheath. Selective left and right coronary cineangiograms as well as left heart catheterization were performed utilizing a 5-Sammarinese diagnostic coronary catheter. Intracoronary nitroglycerin was administered [...] There was some faint left-to- left and yzihm-mp-occm collateralization of the apical segment of the [...] second obtuse marginal branch. There was some doai-vp-qxvjb collateralization of the posterolateral segment. 5. The creek right coronary was visualized with a JR4 [...] mid left anterior descending artery with faint byiz-sx-unsf collaterals. b. 90% mid second obtuse marginal stenosis with a 70% ostial circumflex stenosis. c. 95% proximal posterior lateral stenosis. PLAN: We will consult Cardiothoracic Surgery for evaluation. MD MG Toth/Hakeem /[id number] cc: - ASHLEY BANEGAS * LIPID PROFILE [...] Performing Laboratory Blood [facility] MAIN LAB [address] [place] [address] from Last 3 Months
--- OUTSIDE RECORDS SUMMARY | 2017-12-09 02:59 | XMS REPORT | Encounter Summary ---
Author Author [facility] Organization [facility] Address Unknown Phone Unavailable Care Team Providers Care Tour Actor Name Role Phone Ashley Banegas MD PCP Reason for Referral * Status Reason Specialty Diagnoses / Referred By Referred To Procedures Contact Contact New Request Procedures Richa Ni, REQUEST FOR PA-C CARDIOLOGY [address] [place] [address] Reason for Visit * Auth/Cert Status Reason Specialty Diagnoses / Referred By Referred To Procedures Contact Contact Diagnoses Coronary artery disease involving yavapai-apache coronary artery of yavapai-apache heart with unstable angina pectoris (HCC) Coronary artery disease involving yavapai-apache coronary artery of yavapai-apache heart with unstable angina pectoris (HCC) [I25.110] P rocedures BYPASS GRAFT CORONARY ARTERY Encounter Details Date Type Department Care Team Description 12/02/2017 Hospital Cardiothor Jeimy Inman MD Coronary artery disease - Encounter [address] involving yavapai-apache coronary 12/08/2017 [place] [address] [address] artery of yavapai-apache heart [phone] [place] [address] with unstable angina [phone] pectoris (HCC) Social History Tobacco Use Types [...] History: Diagnosis Date Bilateral carotid artery disease ([facility]) 11/17/2017 05/04/17 - Carotid U/S: mild 1-39% stenosis, nonobstructive disease bilaterally. Cancer ([facility]) 2012 Cervical COPD (chronic obstructive pulmonary disease) ([facility]) Coronary artery disease involving yavapai-apache coronary artery of yavapai-apache heart with unstable angina pectoris ([facility]) 11/17/2017 03/04/17 - LHC: Total [...] abuse 11/17/2017 Mixed hyperlipidemia 11/17/2017 Myocardial infarction ([facility]) 04/2017 PAD (peripheral artery disease) ([facility]) 11/17/2017 TMJ click Type 2 diabetes mellitus with complication, with long-term current use of insulin ([facility]) 11/17/2017 Allergies: Fish containing products; Ketoprofen; Mushroom; [...] heather and ARTURO-I and she was diuresed. prosthodontist/educator was consulted for lifestyle modification for poorly controlled diabetes. She was stable for discharge on POD # 6. Condition at Discharge: Stable Discharge Diagnoses: Hospital Problems Active Problems * (Principal)Coronary artery disease involving yavapai-apache coronary artery of yavapai-apache heart with unstable angina pectoris ([facility]) PAD (peripheral artery disease) ([facility]) Essential hypertension Mixed hyperlipidemia History of tobacco abuse Type 2 diabetes mellitus with complication, with long-term current use of insulin ([facility]) Tooth decay Acute on chronic combined systolic and diastolic heart failure, NYHA class 2 ( [facility]) On mechanically assisted ventilation ([facility]) Surgical Procedures: 1. Coronary artery bypass times [...] or concerns regarding your hospital stay. Call [phone] Discharging attending physician: JEIMY YI [[id number]] Cardiac Diet Limiting unhealthy fats and cholesterol [...] home, you can call a dietitian at [phone]. Incision Care *Keep your incision clean and [...] to follow at 1:30. Provider JEIMY YI [[id number]] Location [facility] Appointment date: 01/12/2018 Appointment time: 12:30 PM Return Appointment You will need to call to schedule appointment to be seen in 1 week. Provider ASHLEY BANEGAS [[id number]] Return Appointment You will be contacted for follow up to be seen in 4 weeks. Provider ARNULFO CORTES [[id number]] Cardiac Rehab Your physician has referred you to outpatient cardiac rehab. Contact [facility] Cardiac Rehab Department at [phone] to schedule an appointment. Opioid (Narcotic) Safety [...] Normal Associated Diagnoses: Coronary artery disease involving yavapai-apache coronary artery of yavapai-apache heart with unstable angina pectoris (HCC) insulin detemir(+) (LEVEMIR) 100 unit/mL soln Inject 26 Units under the skin at bedtime daily. Qty: 10 mL, Refills: 12 PRESCRIPTION TYPE: Normal Associated Diagnoses: Coronary artery disease involving yavapai-apache coronary artery of yavapai-apache heart with unstable angina pectoris (HCC) lisinopril [...] Normal Associated Diagnoses: Coronary artery disease involving yavapai-apache coronary artery of yavapai-apache heart with unstable angina pectoris (HCC) traMADol [...] Post - Op with Jeimy Yi MD [facility] [address] [place] [id number] Signed: Richa Ni PA-C 12/08/2017 cc: Primary Care Physician: Ashley Banegas Referring physicians: Ashley Banegas MD Additional provider(s): Arnulfo Cortes MD in this encounter Discharge Instructions * Discharge Instr - Other Info - Maryjane Whitehead RN - 12/08/2017 2:21 PM CDT * Discharge Instr - Case Management - Meghan Berger RN - 12/08/2017 11:00 AM CDT Your home health agency is [facility] They will contact you within 24- 48 hours to set up you admission visit. If you do not hear from them in that time, please call them at [phone]. If you have any additional questions or concerns regarding home health, please call Meghan Berger RN, BSN Integrated Nurse Service Parts Driver in this encounter Medications at Time of [...] artery disease involving three times daily with yavapai-apache coronary artery of meals. Plus 0-14 units yavapai-apache heart with on sliding scale. unstable angina pectoris (HCC) insulin detemir(+) Inject 26 Units under the 10 mL 12 12/08/2017 (LEVEMIR) 100 unit/mL skin at bedtime daily. solnIndications: Coronary artery disease involving yavapai-apache coronary artery of yavapai-apache heart with unstable angina pectoris (HCC) lisinopril [...] with food. tabletIndications: Coronary artery disease involving yavapai-apache coronary artery of yavapai-apache heart with unstable angina pectoris (HCC) traMADol [...] be brought to the bedside by pharmacy die stamper team when ready. Pt's RN, Sujatha, mert. 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 regimen: Levemir 35 units daily, NovoLog 10 units with meals, mid dose correction factor Hypoglycemic episodes on this regimen: None but fasting glucose was between 70-90 Follows up with for diabetes management: PCP at [place], [place] Diabetic-complications assessment: Retinopathy: Yes Peripheral neuropathy: [...] FREET4, FREEINDEX No results found for: FREET3, [id number], THYBINDGLB Meds aspirin 81 mg Oral QDAY [...] Q6H PRN Terrance Mack MD Pager # [phone] 12/08/2017 * 12/08/2017 9:00 AM CDT Formatting [...] HARVEST: Principal Problem: Coronary artery disease involving yavapai-apache coronary artery of yavapai-apache heart with unstable angina pectoris (HCC) Active Problems: PAD (peripheral artery disease) ([facility]) Essential hypertension Mixed hyperlipidemia History of tobacco abuse Type 2 diabetes mellitus with complication, with long-term current use of insulin (HCC) 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 CV SR, BP 100-140, cont ASA 81 mg (hold for plts <80k) and statin. Tolerating toprol 25 and ACEI in the initial post op phase. Intra op AYALA LVEF 45 %. 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 Norvasc, spironolactone, isosorbid, lisinopril, metoprolol. Resp Daily [...] with Dr. Yi and was brought to [facility] ICU for recovery. She was extubated and [...] Date: 12/06/2017 Zamudio AC=Airway clearance AM=Aerosolized medication BA=Robertson aerosol DB&C=Deep breathe & cough FEV1=Forced expiratory volume in first second) IC=Inspiratory capacity LE=Lung expansion MDI=Metered dose inhaler Neb=Nebulizer O2=Oxygen Oxim=Oximetry PEFR=Peak expiratory flow rate RETAIL GENERAL MANAGER=Rapid Response Team Associated attestation - Deniz Langston [...] HARVEST: Principal Problem: Coronary artery disease involving yavapai-apache coronary artery of yavapai-apache heart with unstable angina pectoris (HCC) Active Problems: PAD (peripheral artery disease) ([facility]) Essential hypertension Mixed hyperlipidemia History of tobacco abuse Type 2 diabetes mellitus with complication, with long-term current use of insulin (HCC) Tooth decay Acute on chronic combined systolic and diastolic heart failure, NYHA class 2 ( [facility]) Assessment/Plan: Neuro Continue PRN oxycodone with scheduled Tylenol. 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 CV SR, BP 90-130, cont ASA 81 mg (hold for plts <80k) and statin. Tolerating toprol 25 and ACEI in the initial post op phase. Intra op AYALA LVEF 45 %. 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 Norvasc, spironolactone, isosorbid, lisinopril, metoprolol. Resp Daily [...] with Dr. Yi and was brought to [facility] ICU for recovery. She was extubated and [...] Assessment/Plan: Principal Problem: Coronary artery disease involving yavapai-apache coronary artery of yavapai-apache heart with unstable angina pectoris ([facility]) Active Problems: PAD (peripheral artery disease) ([facility]) Essential hypertension Mixed hyperlipidemia History of tobacco abuse Type 2 diabetes mellitus with complication, with long-term current use of insulin (HCC) Tooth decay Acute on chronic combined systolic and diastolic heart failure, NYHA class 2 ( [facility]) On mechanically assisted ventilation ([facility]) Type 2 diabetes mellitus: A1c 10.4 , uncontrolled 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 regimen: Levemir 35 units daily, NovoLog 10 units with meals, mid dose correction factor Hypoglycemic episodes on this regimen: None but fasting glucose was between 70-90 Follows up with for diabetes management: PCP at [place], [place] Diabetic-complications assessment: Retinopathy: Yes Peripheral neuropathy: [...] Date: 12/04/2017 Zamudio AC=Airway clearance AM=Aerosolized medication BA=Robertson aerosol DB&C=Deep breathe & cough FEV1=Forced expiratory volume in first second) IC=Inspiratory capacity LE=Lung expansion MDI=Metered dose inhaler Neb=Nebulizer O2=Oxygen Oxim=Oximetry PEFR=Peak expiratory flow rate RETAIL GENERAL MANAGER=Rapid Response Team * Lars Tatum MD - 12/04/2017 2:23 PM CDT Formatting of this note may be different from the original. General Progress Note Admission Date: 12/02/2017 LOS: 2 days Assessment/Plan: Principal Problem: Coronary artery disease involving yavapai-apache coronary artery of yavapai-apache heart with unstable angina pectoris ([facility]) Active Problems: PAD (peripheral artery disease) ([facility]) Essential hypertension Mixed hyperlipidemia History of tobacco abuse Type 2 diabetes mellitus with complication, with long-term current use of insulin ([facility]) Tooth decay Acute on chronic combined systolic and diastolic heart failure, NYHA class 2 ( [facility]) On mechanically assisted ventilation ([facility]) Type 2 diabetes mellitus: A1c 10.4 , uncontrolled 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 regimen: Levemir 35 units daily, NovoLog 10 units with meals, mid dose correction factor Hypoglycemic episodes on this regimen: None but fasting glucose was between 70-90 Follows up with for diabetes management: PCP at [place], [place] Diabetic-complications assessment: Retinopathy: Yes Peripheral neuropathy: [...] HARVEST: Principal Problem: Coronary artery disease involving yavapai-apache coronary artery of yavapai-apache heart with unstable angina pectoris (HCC) Active Problems: PAD (peripheral artery disease) ([facility]) Essential hypertension Mixed hyperlipidemia History of tobacco abuse Type 2 diabetes mellitus with complication, with long-term current use of insulin ([facility]) Tooth decay Acute on chronic combined systolic and diastolic heart failure, NYHA class 2 ( [facility]) Assessment/Plan: Neuro Continue PRN oxycodone with scheduled Tylenol. 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 CV SR, BP 90-130, cont ASA 81 mg (hold for plts <80k) and statin. Hold BB and ACEI in the initial post op phase. Intra op AYALA LVEF 45%. 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 Norvasc, spironolactone, isosorbid, lisinopril, metoprolol. Resp Daily [...] with Dr. Yi and was brought to [facility] ICU for recovery. She was extubated and [...] Artery Disease Date of Admission: 12/02/2017 Room: [place] [address] : 1955 Insurance: Primary: Medicare Secondary: unknown Address: [address] [place] [id number] Patient (home) Marital Status: Occupation: Unknown ED Contact: Ritesh Burk ED Phone #: [phone] CTS: Iva Drafting Supervisor: Sebastian Cardiac Procedures and Events CAB12/02/17 Risk Factors Risk Factors: Obesity, Hyperlipidemia, Diabetes-type II BP: 112/69 Height: 157.5 cm (62.01") Weight: 73.8 kg (162 lb 9.6 oz) BMI (Calculated): 28.74 Medical History has a past medical history of Bilateral carotid artery disease ([facility]) (11/17/2017) ; Cancer ([facility]) (2012); COPD (chronic obstructive pulmonary disease) ([facility]); Coronary artery disease involving yavapai-apache coronary artery of yavapai-apache heart with unstable angina pectoris ([facility]) (11/17/2017); HARDING (dyspnea on exertion); Essential hypertension (11/17/2017); Gastrointestinal disorder; History of tobacco abuse (11/17/2017); Mixed hyperlipidemia (11/17/2017); Myocardial infarction ([facility]) (04/2017) ; PAD (peripheral artery disease) ([facility]) (11/17/2017); TMJ click; and Type 2 diabetes mellitus with complication, with long-term current use of insulin ([facility] ) (11/17/2017). Labs Cholesterol Date Value Ref [...] Date: 12/03/2017 Zamudio AC=Airway clearance AM=Aerosolized medication BA=Robertson aerosol DB&C=Deep breathe & cough FEV1=Forced expiratory volume in first second) IC=Inspiratory capacity LE=Lung expansion MDI=Metered dose inhaler Neb=Nebulizer O2=Oxygen Oxim=Oximetry PEFR=Peak expiratory flow rate RETAIL GENERAL MANAGER=Rapid Response Team * Katarzyna Pal RN - [...] in place. Will monitor. * Nona Charles, STONE AND CONCRETE WASHER - 12/03/2017 10:44 AM CDT Formatting of this note may be different from the original. Cardiothoracic Surgery Critical Care Progress Note Nimisha Jaramillo Today's Date: 12/03/2017 Admission Date: 12/02/2017 LOS: 1 day POD: 1 Procedure: BYPASS GRAFT CORONARY ARTERY x3, LEFT INTERNAL MAMMARY ARTERY HARVEST , LEFT ENDOSCOPIC SAPHENOUS VEIN HARVEST: Principal Problem: Coronary artery disease involving yavapai-apache coronary artery of yavapai-apache heart with unstable angina pectoris (HCC) Active [...] PRN oxycodone with scheduled Tylenol. 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 CV SR, BP 106/54, d/c PA cath, cont ASA 81 mg (hold for plts <80k) and statin. Hold BB and ACEI in the initial post op phase. Intra op AYALA LVEF 45%. 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 Norvasc, spironolactone, isosorbid, lisinopril, metoprolol. Resp Daily [...] standard post op antibiotic for prophylaxis, per [facility] protocol. Heme Hold DVT prophylaxis until cleared by CTS, continue mechanical prophylaxis. FEN If creatinine < 2.0, replace Mg and K per CTS post op protocol. Hgb A1c 10.4 %. Insulin gtt per Modified [place] Protocol-consult endo. Activity Ambulate TID with nursing. [...] and coordination of care. Nona Charles APRN [facility] Intensive Care Pager [phone] 12/03/2017 Subjective: HPI: Nimisha Jaramillo is a 62 y.o. female with a history of insulin-dependent diabetes, hypertension, hypertriglyceridemia, COPD, carotid stenosis and known coronary disease with previous PCI. Her LHC on 12/01/17 showed chronic occlusion of her LAD, an 80% proximal diagonal, 90% mid OM, a 95% distal RCA. She underwent elective CABG today with Dr. Yi and was brought to [facility] ICU for recovery. She was extubated and [...] Date: 12/03/2017 Zamudio AC=Airway clearance AM=Aerosolized medication BA=Robertson aerosol DB&C=Deep breathe & cough FEV1=Forced expiratory volume in first second) IC=Inspiratory capacity LE=Lung expansion MDI=Metered dose inhaler Neb=Nebulizer O2=Oxygen Oxim=Oximetry PEFR=Peak expiratory flow rate RETAIL GENERAL MANAGER=Rapid Response Team * Philomena Leon RN - [...] of green OG output. Notified Giovanni Zacarias, STEAM BOX TENDER and orders received for one time dose [...] mL albumin bolus obtained. * Shelley Yousif, STONE AND CONCRETE WASHER - 12/02/2017 4:35 PM CDT Formatting of this note may be different from the original. Cardiothoracic Surgery Critical Care Progress Note Nimisha Jaramillo Today's Date: 12/02/2017 Admission Date: 12/02/2017 LOS: 0 days POD: Procedure: BYPASS GRAFT CORONARY ARTERY x3, LEFT INTERNAL MAMMARY ARTERY HARVEST , LEFT ENDOSCOPIC SAPHENOUS VEIN HARVEST: Principal Problem: Coronary artery disease involving yavapai-apache coronary artery of yavapai-apache heart with unstable angina pectoris ([facility]) Active Problems: PAD (peripheral artery disease) ([facility]) Essential hypertension Mixed hyperlipidemia History of tobacco abuse Type 2 diabetes mellitus with complication, with long-term current use of insulin ([facility]) 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 Insulin gtt per Modified [place] Protocol. Activity HOB to 30 degrees over [...] and coordination of care. Shelley Yousif APRN [facility] Intensive Care Pager [phone] 12/02/2017 Subjective: HPI: Nimisha Jaramillo is a 62 y.o. female with a history of insulin-dependent diabetes, hypertension, hypertriglyceridemia, COPD, carotid stenosis and known coronary disease with previous PCI. Her LHC on 12/01/17 showed chronic occlusion of her LAD, an 80% proximal diagonal, 90% mid OM, a 95% distal RCA. She underwent elective CABG today with Dr. Yi and was brought to [facility] ICU post-operatively for further management. REVIEW OF [...] History and Physical Update Note Name: Nimisha [facility] Allergies: Fish containing products; Ketoprofen; Mushroom; [...] hours): POC Glucose (Download): (!) 102 (12/02/17 0874) I have examined the patient, and the following changes are noted from the previous H&P performed on 11/25/17. Mrs. Jaramillo had several teeth removed during her previous hospitalization and her case was postponed to allow healing. She denies any issues since then. Her last dose of Plavix was 11/23/17. Italo Russo PA-C Pager [phone] Current problem list includes: Principal Problem: Coronary artery disease involving yavapai-apache coronary artery of yavapai-apache heart with unstable angina pectoris (HCC) Active [...] dictated by Dr. Iva Russo PA-C Pager [phone] Attestation signed by Jeimy Yi MD at 11/25/17 7067 I appreciate the consult. I met and [...] referred to Dr. 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 Dr. Cortes consulted CTS for evaluation for surgical revascularization after [facility] today revealed severe, multivessel CAD in a [...] Reoperation: 3.351% CATH FINDINGS: Coronary Stenosis LAD--> TYPING BOOKKEEPER Diag--> 80% proximal OM --> 70% ostial, 90% mid RCA--> 95% distal PMH: Past Medical History: Diagnosis Date Bilateral carotid artery disease (HCC) 11/17/2017 05/04/17 - Carotid U/S: mild 1-39% stenosis, nonobstructive disease bilaterally. Coronary artery disease involving yavapai-apache coronary artery of yavapai-apache heart with unstable angina pectoris (HCC) 11/17/2017 [...] Mixed hyperlipidemia 11/17/2017 PAD (peripheral artery disease) ([facility]) 11/17/2017 Type 2 diabetes mellitus with complication, with long-term current use of insulin ([facility]) 11/17/2017 PSH: Past Surgical History: [...] Hospital Problems Diagnosis Coronary artery disease involving yavapai-apache coronary artery of yavapai-apache heart with unstable angina pectoris (HCC) 03/05/17 [facility]: Total occlusion of the mid LAD, balloon angioplasty using 2 different sized balloons. No reestablishment of flow. Appears the artery is diffusely diseased & occluded. Proximal portion has severe disease - balloon angioplasty with slight improvement. Severe disease at mid and distal circumflex - fairly small artery. Patent stent in large dominant RCA. Normal LV , EF 60%, normal LVEDP. 06/16/16 [facility]: Severe in-stent restenosis in prox and mid [...] circumflex, fairly small artery. Normal LVEDP. 06/2015 [facility]: 2.5 x 18 mm Resolute Integrity stent to mid circumflex, prox lesion is 40% stenosed, distal lesion 80%. Patent multiple stents in prox, mid, and distal LAD w/ mild in-stent restenosis. Patent stent in RCA w/ mild disease in distal RCA. 05/2015 [facility]: 3.5 x 12 mm & 2.75 x 24 mm Promus Premier overlapping stents to mid RCA. Patent stents in the LAD. Severe stenosis at distal LAD, 70% prox circumflex and 70-80% mid to distal circ/OM branch. [facility]: 2.5 x 24 mm and 2.5 x 20 mm Promusto distal and proximal LAD, 50% prox circumflex, 70-80% mid to distal circumflex involving the proximal portion of OM1, 50-60% mid RCA, LV anterior wall hypokinetic. EF 40%. Essential hypertension Mixed hyperlipidemia History of tobacco abuse Type 2 diabetes mellitus with complication, with long-term current use of insulin ([facility]) Plan: Dr. Yi has reviewed all of the patient's preop testing. He agrees that surgical intervention is the most appropriate course of action. The entire procedure, risks, benefits, alternatives, and complications have been discussed. Potential risks include but are not limited to infection, arrhythmias , bleeding requiring re-operation, prolonged intubation, ARF requiring hemodialysis, CVA, MO, and possibly even . The patient understands, [...] of arrival for Thursday. 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 Patient was also seen by development educator at the last visit and it [...] pulmonary disease) (HCC) Coronary artery disease involving yavapai-apache coronary artery of yavapai-apache heart with unstable angina pectoris ([facility]) 11/17/2017 03/04/17 - [facility]: Total occlusion of the mid LAD, balloon [...] abuse 11/17/2017 Mixed hyperlipidemia 11/17/2017 Myocardial infarction ([facility]) 04/2017 PAD (peripheral artery disease) ([facility]) 11/17/2017 TMJ click Type 2 diabetes mellitus with complication, with long-term current use of insulin ([facility]) 11/17/2017 Past Surgical History Past Surgical History: Procedure Laterality Date TOOTH EXTRACTION Bilateral 11/24/2017 EXTRACTION TEETH #6, 7, 8, 9, 10, 11, 14, 22-27 performed by Dena Gayle DDS at [facility] CORONARY ARTERY BYPASS GRAFT N/A 12/02/2017 BYPASS GRAFT CORONARY ARTERY x3, LEFT INTERNAL MAMMARY ARTERY HARVEST, LEFT ENDOSCOPIC SAPHENOUS VEIN HARVEST performed by Jeimy Yi MD at [facility] CARDIAC SURGERY Total of 13 stents CARPAL [...] clubbing, cyanosis or edema Skin: no rashes/lesions HAND PRINTED CIRCUIT BOARD ASSEMBLER: Grossly nonfocal Lab Review Point of Care [...] FREET4, FREEINDEX No results found for: FREET3, [id number], THYBINDGLB Eugenia Gutierrez MD Endocrinology Fellow PGY-5 [...] fully evaluated, and discussed patient with the [facility] ICU team. The patient is critically ill [...] and diastolic heart failure, NYHA class 2 ([facility]) 12/02/2017 On mechanically assisted ventilation ([facility]) 12/02/2017 CAD (coronary artery disease) 11/23/2017 11/24/17-cardiac catheterization revealed an occluded mid left anterior descending artery with faint vgcm-ws-qepl collaterals, 90% mid second obtuse marginal stenosis with a 70% ostial circumflex stenosis and 95% proximal posterior lateral stenosis. Bilateral carotid artery disease ([facility]) 11/17/2017 05/04/17 - Carotid U/S: mild 1-39% stenosis, nonobstructive disease bilaterally. Coronary artery disease involving yavapai-apache coronary artery of yavapai-apache heart with unstable angina pectoris ([facility]) 11/17/2017 03/05/17 - [facility]: Total occlusion of the mid LAD, balloon angioplasty using 2 different sized balloons. No reestablishment of flow. Appears the artery is diffusely diseased & occluded. Proximal portion has severe disease - balloon angioplasty with slight improvement. Severe disease at mid and distal circumflex - fairly small artery. Patent stent in large dominant RCA. Normal LV , EF 60%, normal LVEDP. 06/16/16 [facility]: Severe in-stent restenosis in prox and mid [...] circumflex, fairly small artery. Normal LVEDP. 06/2015 [facility]: 2.5 x 18 mm Resolute Integrity stent to mid circumflex, prox lesion is 40% stenosed, distal lesion 80%. Patent multiple stents in prox, mid, and distal LAD w/ mild in-stent restenosis. Patent stent in RCA w/ mild disease in distal RCA. 05/2015 [facility]: 3.5 x 12 mm & 2.75 x 24 mm Promus Premier overlapping stents to mid RCA. Patent stents in the LAD. Severe stenosis at distal LAD, 70% prox circumflex and 70-80% mid to distal circ/OM branch. [facility]: 2.5 x 24 mm and 2.5 x 20 mm Promusto distal and proximal LAD, 50% prox circumflex, 70-80% mid to distal circumflex involving the proximal portion of OM1, 50-60% mid RCA, LV anterior wall hypokinetic. EF 40%. PAD (peripheral artery disease) ([facility]) 11/17/2017 Essential hypertension 11/17/2017 Mixed hyperlipidemia 11/17/2017 History of tobacco abuse 11/17/2017 Type 2 diabetes mellitus with complication, with long-term current use of insulin ([facility]) 11/17/2017 Tooth decay 11/16/2017 Added automatically from request for surgery [id number] Neuro: PRN tylenol and PRN opioids per [...] K+ >4.0 mEq/L. Insulin gtt per Modified [place] Protocol . Activity: Increase HOB to 30 [...] Ref Range PH-ART-POC 7.35 7.35 - 7.45 CQP9-RVM-YTZ 47 (H) 35 - 45 MMHG PO2-ART-POC 311 (H) 80 - 100 MMHG Base Ex-ART-POC 0.0 MMOL/L O2 Sat-ART-POC 100.0 (H) 95 - 99 % Kbzxtfjnwem-TPI-GNY 25.8 21 - 28 MMOL/L POC HEMATOCRIT [...] Ref Range PH-ART-POC 7.39 7.35 - 7.45 SJA6-MVK-QHM 43 35 - 45 MMHG PO2-ART-POC 259 (H) 80 - 100 MMHG Base Ex-ART-POC 1.0 MMOL/L O2 Sat-ART-POC 100.0 (H) 95 - 99 % Xbxggtachtj-MEM-MUZ 25.8 21 - 28 MMOL/L POC HEMATOCRIT [...] Range PH-ART-POC 7.46 (H) 7.35 - 7.45 DEO2-VHI-JNN 42 35 - 45 MMHG PO2-ART-POC 581 (H) 80 - 100 MMHG Base Ex-ART-POC 6.0 MMOL/L O2 Sat-ART-POC 100.0 (H) 95 - 99 % Vtslxorkwpo-NEQ-DFI 29.4 (H) 21 - 28 MMOL/L POC [...] Range PH-ART-POC 7.46 (H) 7.35 - 7.45 AJL2-YLG-MFJ 40 35 - 45 MMHG PO2-ART-POC 566 (H) 80 - 100 MMHG Base Ex-ART-POC 5.0 MMOL/L O2 Sat-ART-POC 100.0 (H) 95 - 99 % Xquyzxdwvme-GII-HGE 28.6 (H) 21 - 28 MMOL/L POC [...] Range PH-ART-POC 7.51 (H) 7.35 - 7.45 WLU0-RUZ-IGH 34 (L) 35 - 45 MMHG PO2-ART-POC 439 (H) 80 - 100 MMHG Base Ex-ART-POC 4.0 MMOL/L O2 Sat-ART-POC 100.0 (H) 95 - 99 % Hgkflfsokna-VGL-FLN 27.3 21 - 28 MMOL/L POC HEMATOCRIT [...] Range PH-ART-POC 7.49 (H) 7.35 - 7.45 HVZ8-ZIH-TCQ 33 (L) 35 - 45 MMHG PO2-ART-POC 299 (H) 80 - 100 MMHG Base Ex-ART-POC 2.0 MMOL/L O2 Sat-ART-POC 100.0 (H) 95 - 99 % Dohrolcrwnk-GKI-JLY 25.0 21 - 28 MMOL/L POC HEMATOCRIT [...] Ref Range PH-ART-POC 7.44 7.35 - 7.45 DJM2-VAI-GEG 32 (L) 35 - 45 MMHG PO2-ART-POC 81 80 - 100 MMHG Base Def-ART-POC 3.0 MMOL/L O2 Sat-ART-POC 96.0 95 - 99 % Qydakmipmfr-LUC-OCE 21.7 21 - 28 MMOL/L POC GLUCOSE [...] Diagnostic Procedures Review: reviewed Mirza Lazo DO Delphi Developer Anesthesiology and Critical Care [phone] in this encounter Miscellaneous Notes * Case Mgmt DC Plan - Meghan Berger RN - 12/08/2017 11:08 AM CDT Case Management Progress Note NAME:Nimisha Jaramillo :1955 AGE: 62 y.o. ADMISSION DATE: 12/02/2017 DAYS ADMITTED: LOS: 6 days Todays Date: 12/08/2017 Szpy-YRZ-8-CABG- increase activity,diabetic education, home today vs tomm. Interventions ? Support EMR and POC reviewed. ? Info or Referral ? Discharge Planning Met with pt and spouse at bedside to discuss POC. Discussed and pt agreeable. Pt used [facility] prior and would like to use again if possible. Geovanna at [facility] called and verified they could accept pt on service. ([phone], [phone]) Referral sent. Will send orders/AVS on DC. Pt had no other concerns at this time. CM will continue to follow for any DC needs that may arise. Update:1413- [facility] ? Medication Needs ? Financial ? Legal ? Other Disposition ? Expected Discharge Date Expected Discharge Date: 12/05/17 ? Transportation Does the patient need discharge transport arranged?: No Transportation Name, Phone and Availability #1: - Ritesh Burk Does the patient use Medicaid Transportation?: No ? Discharge Disposition Anticipate DC with family assistance and CONTINUITY DIRECTOR. Meghan Berger RN, BSN Integrated Nurse Service Parts Driver Pager [phone] * Care Plan - Annalise Lee RN [...] referred to Dr. 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 Dr. Cortes consulted CTS for evaluation for surgical revascularization after [facility] today revealed severe, multivessel CAD in a [...] with Vince Sellersty as he is the government property inspector of the pt's apartment complex. Patient Address/Phone [address] [facility] [phone] (home) Emergency Contact Extended Emergency Contact Information Primary Emergency Contact: Ritesh Burk [facility] Relation: Spouse Healthcare Directive Healthcare Directive: Yes, patient has a healthcare directive Type of Healthcare Directive: Durable power of energy attorney for healthcare, Healthcare directive Location of [...] her medications and has to utilize her [facility] clinic monthly for assistance. If the clinic does not have her medications she cannot fill them elsewhere d/t cost) ? Source of Income Source Of Income: Food Assistance, Other (comment) ($192/month in food stamps. Pt also receives medication assistance from [facility]) ? Financial Assistance Needed? Pt has no Part D coverage at this time because she missed the open enrollment period. Pt says she has to have all medications filled at the local [facility] in [place] and they have a ramy they access [...] ? PCP Ashley Banegas, , ? Pharmacy [facility] [address] [place] [address] [address] [address] [address] [facility] [address] ? Durable Medical Equipment Durable Medical Equipment at home: None ? Home Health Receiving home health: Yes Agency name: [facility] [phone] Would patient use this agency again?: Yes [...] ? Outpatient Therapy PT: No OT: No VP MEDICAL: No ? Assisted Facility/[facility] SNF: No NH: No ? Inpatient Rehab IPR: No ? [facility] Hospital LTACH: No ? Acute Hospital Stay Acute Hospital Stay: In the past Was patient's stay within the last 30 days?: Yes When did patient receive care?: November 23 - 2017 Name of [facility]: [facility] Readmission Code Group: 8. Scheduled Readmission 8. Scheduled Readmission: 8c. Surgery/procedure Maura Boswell FOOD WRITER Surgery - Cardiothoracic/Vascular Pediatric Licensed Practical Nurse *[id number] * Care Plan - Philomena Leon RN [...] Yi MD - 12/02/2017 4:18 PM CDT [address] [id number] PATIENT NAME: NIMISHA JARAMILLO MR#/PT#: [id number] OPERATIVE REPORT : 1955 DATE OF OPERATION: 12/02/2017 ROOM #: HC307 OPERATIVE REPORT SURGEON: Jeimy Yi III, MD (Trip) ENGINEERING AID SURGEON(S): MYRIAM Upton PA-C DICTATING PROVIDER: Jeimy [...] Hess) Hanny Yi III, MD / Hakeem [id number] P cc: - Jeimy Hess) Hanny Yi III, MD * Procedures (Immed Post or Bedside) - Emma Mcnally PA-C - 12/02/2017 3: 35 PM CDT Brief Operative Note Name: Nimisha Jaramillo is a 62 y.o. female : 1955 DATE OF OPERATION: 12/02/2017 Date: 12/02/2017 Preoperative Dx: Coronary artery disease involving yavapai-apache coronary artery of yavapai-apache heart with unstable angina pectoris (HCC) [I25.110] Post-op Diagnosis * Coronary artery disease involving yavapai-apache coronary artery of yavapai-apache heart with unstable angina pectoris (HCC) [I25.110] [...] ICU - stable Emma Mcnally PA-C Pager [phone] in this encounter Plan of Treatment Name Priority Associated Diagnoses Order Schedule ECG 12-LEAD STAT ONE TIME for 1 Occurrences starting 12/02/2017 until 12/02/2017 ECG 12-LEAD Routine ONE TIME for 1 Occurrences starting 12/03/2017 until 12/03/2017 CHEST 2 VIEWS Routine Coronary artery disease Expected: 01/12/2018 involving yavapai-apache heart, (Approximate), Expires: angina presence 12/04/2018 unspecified, unspecified vessel or lesion type as of this encounter Results * POC GLUCOSE (12/08/2017 11:19 AM) Component Value Ref Range Glucose, POC 234 (H) 70 - 100 MG/DL Specimen Performing Laboratory MAIN LAB [address] [place] [address] * POC GLUCOSE (12/08/2017 7:31 AM) Component Value Ref Range Glucose, POC 131 (H) 70 - 100 MG/DL Specimen Performing Laboratory MAIN LAB [address] [place] [address] * POC GLUCOSE (12/07/2017 9:16 PM) Component Value Ref Range Glucose, POC 202 (H) 70 - 100 MG/DL Specimen Performing Laboratory MAIN LAB [address] [place] [address] * POC GLUCOSE (12/07/2017 5:41 PM) Component Value Ref Range Glucose, POC 171 (H) 70 - 100 MG/DL Specimen Performing Laboratory MAIN LAB [address] [place] [address] * POC GLUCOSE (12/07/2017 11:35 AM) Component Value Ref Range Glucose, POC 328 (H) 70 - 100 MG/DL Specimen Performing Laboratory MAIN LAB [address] [place] [address] * POC GLUCOSE (12/07/2017 7:18 AM) Component Value Ref Range Glucose, POC 134 (H) 70 - 100 MG/DL Specimen Performing Laboratory [facility] [address] [place] [address] * MAGNESIUM (12/07/2017 4:23 AM) Component Value Ref Range Magnesium 2.0 1.6 - 2.6 mg/dL Specimen Performing Laboratory Blood [facility] [address] [place] [address] * CBC (12/07/2017 4:23 AM) Component Value [...] - 11 [place] Specimen Performing Laboratory Blood [facility] [address] [place] [address] * BASIC METABOLIC PANEL (12/07/2017 4:23 AM) [...] Pharmacist for questions. Specimen Performing Laboratory Blood [facility] [address] [place], [place] [phone] * POC GLUCOSE (12/07/2017 3:28 AM) Component Value Ref Range Glucose, POC 119 (H) 70 - 100 MG/DL Specimen Performing Laboratory [facility] [address] [place] [address] * POC GLUCOSE (12/06/2017 8:49 PM) Component Value Ref Range Glucose, POC 215 (H) 70 - 100 MG/DL Specimen Performing Laboratory [facility] [address] [place], [place] [phone] * POC GLUCOSE (12/06/2017 5:38 PM) Component Value Ref Range Glucose, POC 147 (H) 70 - 100 MG/DL Specimen Performing Laboratory [facility] [address] [place], [place] [phone] * POC GLUCOSE (12/06/2017 11:29 AM) Component Value Ref Range Glucose, POC 137 (H) 70 - 100 MG/DL Specimen Performing Laboratory [facility] [address] [place], [place] [phone] * POC GLUCOSE (12/06/2017 7:47 AM) Component Value Ref Range Glucose, POC 133 (H) 70 - 100 MG/DL Specimen Performing Laboratory [facility] [address] [place], [place] [phone] * MAGNESIUM (12/06/2017 4:46 AM) Component Value Ref Range Magnesium 2.4 1.6 - 2.6 mg/dL Specimen Performing Laboratory Blood [facility] [address] [place], [place] [phone] * CBC (12/06/2017 4:46 AM) Component Value [...] [place] Specimen Performing Laboratory Blood MAIN LAB [address] [place] [address] * BASIC METABOLIC PANEL (12/06/2017 4:46 AM) [...] Pharmacist for questions. Specimen Performing Laboratory Blood [facility] [address] [place] [address] * POC GLUCOSE (12/05/2017 9:04 PM) Component Value Ref Range Glucose, POC 142 (H) 70 - 100 MG/DL Specimen Performing Laboratory [facility] [address] [place] [address] * POC GLUCOSE (12/05/2017 4:57 PM) Component Value Ref Range Glucose, POC 158 (H) 70 - 100 MG/DL Specimen Performing Laboratory MAIN LAB [address] [place] [address] * POC GLUCOSE (12/05/2017 11:36 AM) Component Value Ref Range Glucose, POC 211 (H) 70 - 100 MG/DL Specimen Performing Laboratory [facility] [address] [place] [address] * POC GLUCOSE (12/05/2017 7:16 AM) Component Value Ref Range Glucose, POC 210 (H) 70 - 100 MG/DL Specimen Performing Laboratory MAIN LAB [address] [place] [address] * CHEST SINGLE VIEW (12/05/2017 7:03 AM) [...] M.D. on 12/05/2017 9:58 AM. Dictated by tIalo Stevenson M.D. on 12/05/2017 9:57 AM. * POC GLUCOSE (12/05/2017 4:00 AM) Component Value Ref Range Glucose, POC 219 (H) 70 - 100 MG/DL Specimen Performing Laboratory MAIN LAB [address] [place] [address] * MAGNESIUM (12/05/2017 3:43 AM) Component Value Ref Range Magnesium 2.7 (H) 1.6 - 2.6 mg/dL Specimen Performing Laboratory Blood [facility]IN [facility] [address] [place] [address] * CBC (12/05/2017 3:43 AM) Component Value [...] [place] Specimen Performing Laboratory Blood MAIN LAB [address] [place] [address] * BASIC METABOLIC PANEL (12/05/2017 3:43 AM) [...] questions. Specimen Performing Laboratory Blood MAIN LAB [address] [place] [address] * POC GLUCOSE (12/04/2017 9:14 PM) Component Value Ref Range Glucose, POC 172 (H) 70 - 100 MG/DL Specimen Performing Laboratory MAIN LAB [address] [place] [address] * POC GLUCOSE (12/04/2017 5:29 PM) Component Value Ref Range Glucose, POC 234 (H) 70 - 100 MG/DL Specimen Performing Laboratory MAIN LAB [address] [place] [address] * POC GLUCOSE (12/04/2017 11:28 AM) Component Value Ref Range Glucose, POC 228 (H) 70 - 100 MG/DL Specimen Performing Laboratory MAIN LAB [address] [place] [address] * POC GLUCOSE (12/04/2017 7:53 AM) Component Value Ref Range Glucose, POC 177 (H) 70 - 100 MG/DL Specimen Performing Laboratory MAIN LAB [address] [place] [address] * CHEST SINGLE VIEW (12/04/2017 6:37 AM) [...] Performing Laboratory Blood [facility]IN [facility] [address] [place] [address] * CBC (12/04/2017 3:53 AM) Component Value [...] [place] Specimen Performing Laboratory Blood MAIN LAB [address] [place] [address] * BASIC METABOLIC PANEL (12/04/2017 3:53 AM) [...] questions. Specimen Performing Laboratory Blood MAIN LAB [address] [place] [address] * POC GLUCOSE (12/04/2017 12:06 AM) Component Value Ref Range Glucose, POC 112 (H) 70 - 100 MG/DL Specimen Performing Laboratory MAIN LAB [address] [place] [address] * POC GLUCOSE (12/03/2017 10:29 PM) Component Value Ref Range Glucose, POC 104 (H) 70 - 100 MG/DL Specimen Performing Laboratory MAIN LAB [address] [place] [address] * POC GLUCOSE (12/03/2017 9:55 PM) Component Value Ref Range Glucose, POC 100 70 - 100 MG/DL Specimen Performing Laboratory [facility] [address] [place] [address] * POC GLUCOSE (12/03/2017 8:54 PM) Component Value Ref Range Glucose, POC 142 (H) 70 - 100 MG/DL Specimen Performing Laboratory [facility] [address] [place] [address] * POC GLUCOSE (12/03/2017 7:47 PM) Component Value Ref Range Glucose, POC 228 (H) 70 - 100 MG/DL Specimen Performing Laboratory [facility] [address] [place] [address] * POC GLUCOSE (12/03/2017 6:55 PM) Component Value Ref Range Glucose, POC 247 (H) 70 - 100 MG/DL Specimen Performing Laboratory [address] [address] * POC GLUCOSE (12/03/2017 5:45 PM) Component Value Ref Range Glucose, POC 233 (H) 70 - 100 MG/DL Specimen Performing Laboratory [facility] [address] [place] [address] * POC GLUCOSE (12/03/2017 4:54 PM) Component Value Ref Range Glucose, POC 252 (H) 70 - 100 MG/DL Specimen Performing Laboratory [address] [address] * POC GLUCOSE (12/03/2017 3:36 PM) Component Value Ref Range Glucose, POC 278 (H) 70 - 100 MG/DL Specimen Performing Laboratory [facility] [address] [place] [address] * POC GLUCOSE (12/03/2017 2:36 PM) Component Value Ref Range Glucose, POC 285 (H) 70 - 100 MG/DL Specimen Performing Laboratory [facility] [address] [place] [address] * POC GLUCOSE (12/03/2017 1:36 PM) Component Value Ref Range Glucose, POC 216 (H) 70 - 100 MG/DL Specimen Performing Laboratory [facility] [address] [place] [address] * POC GLUCOSE (12/03/2017 12:33 PM) Component Value Ref Range Glucose, POC 159 (H) 70 - 100 MG/DL Specimen Performing Laboratory [facility] [address] [place] [address], [place] [address] * POC GLUCOSE (12/03/2017 11:27 AM) Component Value Ref Range Glucose, POC 214 (H) 70 - 100 MG/DL Specimen Performing Laboratory MAIN LAB [address] [place] [address] * CHEST SINGLE VIEW (12/03/2017 11:01 AM) [...] pleural effusion and mild bibasilar atelectasis. The Austin-Brian catheter and thoracostomy tubes have been removed. [...] pleural effusion and mild bibasilar atelectasis. The Austin-Brian catheter and thoracostomy tubes have been removed. [...] MG/DL Specimen Performing Laboratory MAIN LAB [address] [place] [address] * POC GLUCOSE (12/03/2017 9:14 AM) Component Value Ref Range Glucose, POC 182 (H) 70 - 100 MG/DL Specimen Performing Laboratory MAIN LAB [address] [place] [address] * POC GLUCOSE (12/03/2017 7:56 AM) Component Value Ref Range Glucose, POC 111 (H) 70 - 100 MG/DL Specimen Performing Laboratory MAIN LAB [address] [place] [address] * POC GLUCOSE (12/03/2017 7:02 AM) Component Value Ref Range Glucose, POC 121 (H) 70 - 100 MG/DL Specimen Performing Laboratory MAIN LAB [address] [place] [address] * POC GLUCOSE (12/03/2017 6:06 AM) Component Value Ref Range Glucose, POC 117 (H) 70 - 100 MG/DL Specimen Performing Laboratory MAIN LAB [address] [place] [address] * POC GLUCOSE (12/03/2017 4:57 AM) Component Value Ref Range Glucose, POC 109 (H) 70 - 100 MG/DL Specimen Performing Laboratory MAIN LAB [address] [place] [address] * CHEST SINGLE VIEW (12/03/2017 4:36 AM) [...] 12/02/2017 Findings: There is a right IJ Austin-Brian catheter, mediastinal drain, and 2 left thoracostomy tubes in place. There is a metallic stent projecting over the left ventricle. Right IJ Austin-Brian catheter is in similar position. Removal of endotracheal and orogastric tubes. Cardiac silhouette is stable. Previous median sternotomy and CABG. There is limited depth of inspiration. Small left pleural effusion. No pneumothorax. Procedure Note Interface, Radiant Results - 12/03/2017 1:08 PM CDT CHEST SINGLE VIEW Clinical Indication: Female, 62 years old. Atelectasis Comparison: Chest radiograph dated 12/02/2017 Findings: There is a right IJ Austin-Brian catheter, mediastinal drain, and 2 left thoracostomy tubes in place. There is a metallic stent projecting over the left ventricle. Right IJ Austin-Brian catheter is in similar position. Removal of [...] Specimen Performing Laboratory Blood MAIN LAB [address] [place] [address] * BASIC METABOLIC PANEL (12/03/2017 4:04 AM) [...] Performing Laboratory Blood [facility]IN [facility] [address] [place] [address] * CBC (12/03/2017 4:04 AM) Component Value [...] - 11 [place] Specimen Performing Laboratory Blood [facility] [address] [place] [address] * O2 SATURATION, MIXED VENOUS (12/03/2017 4:00 AM) Component Value Ref Range O6Kof-Ejdfo Venous 61.3 % Specimen Performing Laboratory Blood [facility] [address] [place], [place] [phone] * POC GLUCOSE (12/03/2017 3:53 AM) Component Value Ref Range Glucose, POC 117 (H) 70 - 100 MG/DL Specimen Performing Laboratory [facility] [address] [place], [place] [phone] * POC GLUCOSE (12/03/2017 2:03 AM) Component Value Ref Range Glucose, POC 131 (H) 70 - 100 MG/DL Specimen Performing Laboratory [facility] [address] [place] [address] * BLOOD GASES, ARTERIAL (12/03/2017 2:00 AM) Component Value Ref Range pH-Arterial 7.36 7.35 - 7.45 pCO2-Arterial 39 35 - 45 MMHG pO2-Arterial 137 (H) 80 - 100 MMHG Base Deficit-Arterial 3.1 MMOL/L O2 Sat-Arterial 98.7 95 - 99 % Joovsmsvddv-TOQ-Ibh 21.8 21 - 28 MMOL/L Specimen Performing Laboratory Blood, arterial - Blood [facility] [address] [place], [place] [phone] * POTASSIUM (12/03/2017 2:00 AM) Component Value Ref Range Potassium 4.0 3.5 - 5.1 MMOL/L Specimen Performing Laboratory Blood [facility] [address] [place], [place] [phone] * POC IONIZED CALCIUM (12/03/2017 12:52 AM) Component Value Ref Range Ionized Calcium-POC 1.16 1.0 - 1.3 MMOL/L Specimen Performing Laboratory MAIN LAB [address] [place] [address] * POC SODIUM (12/03/2017 12:52 AM) Component Value Ref Range Sodium-POC 145 137 - 147 MMOL/L Specimen Performing Laboratory [facility] [address] [place] [address] * POC POTASSIUM (12/03/2017 12:52 AM) Component Value Ref Range Potassium-POC 4.0 3.5 - 5.1 MMOL/L Specimen Performing Laboratory [facility] [address] [place] [address] * POC HEMATOCRIT (12/03/2017 12:52 AM) Component Value Ref Range Hemoglobin POC 8.5 (L) 12.0 - 15.0 GM/DL Hematocrit POC 25.0 (L) 36 - 45 % Specimen Performing Laboratory MAIN LAB [address] [place] [address] * POC BLOOD GAS ARTERIAL (12/03/2017 12:52 AM) Component Value Ref Range PH-ART-POC 7.39 7.35 - 7.45 SNV0-LAD-LFV 37 35 - 45 MMHG PO2-ART-POC 150 (H) 80 - 100 MMHG Base Def-ART-POC 3.0 MMOL/L O2 Sat-ART-POC 99.0 95 - 99 % Xjixfmrlzfz-JBG-AQQ 22.2 21 - 28 MMOL/L Specimen Performing Laboratory [facility] [address] [place] [address] * POC GLUCOSE (12/03/2017 12:16 AM) Component Value Ref Range Glucose, POC 130 (H) 70 - 100 MG/DL Specimen Performing Laboratory [facility] [address] [place] [address] * O2 SATURATION, MIXED VENOUS (12/02/2017 10:45 PM) Component Value Ref Range D7Ria-Pzvtj Venous 62.9 % Specimen Performing Laboratory Blood [facility] [address] [place] [address] * POC IONIZED CALCIUM (12/02/2017 10:42 PM) Component Value Ref Range Ionized Calcium-POC 1.09 1.0 - 1.3 MMOL/L Specimen Performing Laboratory MAIN LAB [address] [place] [address] * POC SODIUM (12/02/2017 10:42 PM) Component Value Ref Range Sodium-POC 143 137 - 147 MMOL/L Specimen Performing Laboratory MAIN LAB [address] [place] [address] * POC POTASSIUM (12/02/2017 10:42 PM) Component Value Ref Range Potassium-POC 3.8 3.5 - 5.1 MMOL/L Specimen Performing Laboratory [facility] [address] [place] [address] 36065 * POC HEMATOCRIT (12/02/2017 10:42 PM) Component Value Ref Range Hemoglobin POC 7.8 (L) 12.0 - 15.0 GM/DL Hematocrit POC 23.0 (L) 36 - 45 % Specimen Performing Laboratory [facility] [address] [place] [address] 38609 * POC BLOOD GAS ARTERIAL (12/02/2017 10:42 PM) Component Value Ref Range PH-ART-POC 7.51 (H) 7.35 - 7.45 [id number]-[id number] 27 (L) 35 - 45 MMHG PO2-ART-POC 171 (H) 80 - 100 MMHG Base Def-ART-POC 1.0 MMOL/L O2 Sat-ART-POC 100.0 (H) 95 - 99 % Ibaohslzome-GLU-AZJ 21.5 21 - 28 MMOL/L Specimen Performing Laboratory [facility] [address] [place] [address] 48943 * POC GLUCOSE (12/02/2017 10:09 PM) Component Value Ref Range Glucose, POC 133 (H) 70 - 100 MG/DL Specimen Performing Laboratory [facility] [address] [place] [address] 53644 * POTASSIUM (12/02/2017 9:00 PM) Component Value Ref Range Potassium 3.8 3.5 - 5.1 MMOL/L Specimen Performing Laboratory Blood [facility] [address] [place] [address] 12220 * MAGNESIUM (12/02/2017 9:00 PM) Component Value Ref Range Magnesium 3.8 (H) 1.6 - 2.6 mg/dL Specimen Performing Laboratory Blood MAIN [facility] [address] [place] [address] 92819 * POC GLUCOSE (12/02/2017 8:58 PM) Component Value Ref Range Glucose, POC 137 (H) 70 - 100 MG/DL Specimen Performing Laboratory [facility] [address] [place] [address] 01183 * POC GLUCOSE (12/02/2017 8:07 PM) Component Value Ref Range Glucose, POC 154 (H) 70 - 100 MG/DL Specimen Performing Laboratory [facility] [address] [place] [address] 21690 * POC GLUCOSE (12/02/2017 7:03 PM) Component Value Ref Range Glucose, POC 157 (H) 70 - 100 MG/DL Specimen Performing Laboratory [facility] [address] [place] [address] 13833 * POC GLUCOSE (12/02/2017 6:17 PM) Component Value Ref Range Glucose, POC 169 (H) 70 - 100 MG/DL Specimen Performing Laboratory [facility] [address] [place] [address] 94134 * POC GLUCOSE (12/02/2017 5:02 PM) Component Value Ref Range Glucose, POC 165 (H) 70 - 100 MG/DL Specimen Performing Laboratory [facility] [address] [place] [address] 92044 * POC BLOOD GAS ARTERIAL (12/02/2017 5:01 PM) Component Value Ref Range PH-ART-POC 7.44 7.35 - 7.45 WET6-WFK-COC 32 (L) 35 - 45 MMHG PO2-ART-POC 81 80 - 100 MMHG Base Def-ART-POC 3.0 MMOL/L O2 Sat-ART-POC 96.0 95 - 99 % Ecbxhopmufy-HQJ-TDL 21.7 21 - 28 MMOL/L Specimen Performing Laboratory [facility] [address] [place] [address] 25911 * POC GLUCOSE (12/02/2017 4:35 PM) Component Value Ref Range Glucose, POC 155 (H) 70 - 100 MG/DL Specimen Performing Laboratory [facility] [address] [place] [address] 90181 * POC IONIZED CALCIUM (12/02/2017 4:32 PM) Component Value Ref Range Ionized Calcium-POC 1.15 1.0 - 1.3 MMOL/L Specimen Performing Laboratory [facility] [address] [place] [address] 34593 * POC SODIUM (12/02/2017 4:32 PM) Component Value Ref Range Sodium-POC 143 137 - 147 MMOL/L Specimen Performing Laboratory [facility] [address] [phone] * POC POTASSIUM (12/02/2017 4:32 PM) Component Value Ref Range Potassium-POC 3.7 3.5 - 5.1 MMOL/L Specimen Performing Laboratory MAIN LAB [address] [place] [address] 09364 * POC HEMATOCRIT (12/02/2017 4:32 PM) Component Value Ref Range Hemoglobin POC 7.5 (L) 12.0 - 15.0 GM/DL Hematocrit POC 22.0 (L) 36 - 45 % Specimen Performing Laboratory MAIN LAB [address] [place], [place] [phone] * POC BLOOD GAS ARTERIAL (12/02/2017 4:32 PM) Component Value Ref Range PH-ART-POC 7.49 (H) 7.35 - 7.45 TFO1-VVI-FVU 33 (L) 35 - 45 MMHG PO2-ART-POC 299 (H) 80 - 100 MMHG Base Ex-ART-POC 2.0 MMOL/L O2 Sat-ART-POC 100.0 (H) 95 - 99 % Plkdjdxwnso-WLR-OLU 25.0 21 - 28 MMOL/L Specimen Performing Laboratory MAIN LAB [address] [place], [place] [phone] * MAGNESIUM (12/02/2017 4:30 PM) Component Value Ref Range Magnesium 3.1 (H) 1.6 - 2.6 mg/dL Specimen Performing Laboratory Blood [facility] [address] [place] [address] * PTT (APTT) (12/02/2017 4:30 PM) Component Value Ref Range APTT 29.3 21.0 - 39.0 SEC Specimen Performing Laboratory Blood [facility] [address] [place], [place] [phone] * PROTIME INR (PT) (12/02/2017 4:30 PM) Component Value Ref Range INR 1.1 0.8 - 1.2 Specimen Performing Laboratory Blood [facility] [address] [place] [address] * BASIC METABOLIC PANEL (12/02/2017 4:30 PM) [...] Performing Laboratory Blood [facility] [address] [place] [address] * CBC (12/02/2017 4:30 PM) Component Value [...] Specimen Performing Laboratory Blood MAIN [facility] [address] [place] [address] * LINE PLCMT 1V CXR (12/02/2017 4:18 [...] mediastinal drain are noted. A right IJ Austin-Brian catheter is seen with distal tip overlying [...] mediastinal drain are noted. A right IJ Austin-Brian catheter is seen with distal tip overlying [...] MMOL/L Specimen Performing Laboratory [facility]IN [facility] [address] [place] [address] * POC SODIUM (12/02/2017 3:06 PM) Component Value Ref Range Sodium-POC 142 137 - 147 MMOL/L Specimen Performing Laboratory MAIN [facility] [address] [place] [address] * POC POTASSIUM (12/02/2017 3:06 PM) Component Value Ref Range Potassium-POC 4.2 3.5 - 5.1 MMOL/L Specimen Performing Laboratory [facility] [address] [place] [address] 59995 * POC HEMATOCRIT (12/02/2017 3:06 PM) Component Value Ref Range Hemoglobin POC 8.5 (L) 12.0 - 15.0 GM/DL Hematocrit POC 25.0 (L) 36 - 45 % Specimen Performing Laboratory [facility] [address] [place] [address] 69703 * POC BLOOD GAS ARTERIAL (12/02/2017 3:06 PM) Component Value Ref Range PH-ART-POC 7.51 (H) 7.35 - 7.45 GDM8-EUA-OFY 34 (L) 35 - 45 MMHG PO2-ART-POC 439 (H) 80 - 100 MMHG Base Ex-ART-POC 4.0 MMOL/L O2 Sat-ART-POC 100.0 (H) 95 - 99 % Yjlecmvkhqz-SQV-VJW 27.3 21 - 28 MMOL/L Specimen Performing Laboratory [facility] [address] [place] [address] 28049 * POC GLUCOSE (12/02/2017 3:04 PM) Component Value Ref Range Glucose, POC 132 (H) 70 - 100 MG/DL Specimen Performing Laboratory [facility] [address] [place] [address] 51715 * POC IONIZED CALCIUM (12/02/2017 2:22 PM) Component Value Ref Range Ionized Calcium-POC 1.03 1.0 - 1.3 MMOL/L Specimen Performing Laboratory [facility] [address] [place] [address] 50483 * POC SODIUM (12/02/2017 2:22 PM) Component Value Ref Range Sodium-POC 141 137 - 147 MMOL/L Specimen Performing Laboratory [facility] [address] [place] [address] 69251 * POC POTASSIUM (12/02/2017 2:22 PM) Component Value Ref Range Potassium-POC 5.2 (H) 3.5 - 5.1 MMOL/L Specimen Performing Laboratory [facility] [address] [place] [address] 08287 * POC HEMATOCRIT (12/02/2017 2:22 PM) Component Value Ref Range Hemoglobin POC 8.2 (L) 12.0 - 15.0 GM/DL Hematocrit POC 24.0 (L) 36 - 45 % Specimen Performing Laboratory [facility] [address] [place] [address] 45330 * POC BLOOD GAS ARTERIAL (12/02/2017 2:22 PM) Component Value Ref Range PH-ART-POC 7.46 (H) 7.35 - 7.45 KTM6-HUM-OFW 40 35 - 45 MMHG PO2-ART-POC 566 (H) 80 - 100 MMHG Base Ex-ART-POC 5.0 MMOL/L O2 Sat-ART-POC 100.0 (H) 95 - 99 % Vtgacrwfzzo-SVS-CJA 28.6 (H) 21 - 28 MMOL/L Specimen Performing Laboratory [facility] [address] [place] [address] * POC GLUCOSE (12/02/2017 2:20 PM) Component Value Ref Range Glucose, POC 116 (H) 70 - 100 MG/DL Specimen Performing Laboratory [facility] [address] [place] [address] * POC IONIZED CALCIUM (12/02/2017 1:52 PM) Component Value Ref Range Ionized Calcium-POC 0.95 (L) 1.0 - 1.3 MMOL/L Specimen Performing Laboratory [facility] [address] [place] [address] * POC SODIUM (12/02/2017 1:52 PM) Component Value Ref Range Sodium-POC 141 137 - 147 MMOL/L Specimen Performing Laboratory [facility] [address] [place] [address] * POC POTASSIUM (12/02/2017 1:52 PM) Component Value Ref Range Potassium-POC 5.9 (H) 3.5 - 5.1 MMOL/L Specimen Performing Laboratory [facility] [address] [place], [place] [phone] * POC HEMATOCRIT (12/02/2017 1:52 PM) Component Value Ref Range Hemoglobin POC 7.5 (L) 12.0 - 15.0 GM/DL Hematocrit POC 22.0 (L) 36 - 45 % Specimen Performing Laboratory [facility] [address] [place] [address] * POC BLOOD GAS ARTERIAL (12/02/2017 1:52 PM) Component Value Ref Range PH-ART-POC 7.46 (H) 7.35 - 7.45 JVX3-COU-CZS 42 35 - 45 MMHG PO2-ART-POC 581 (H) 80 - 100 MMHG Base Ex-ART-POC 6.0 MMOL/L O2 Sat-ART-POC 100.0 (H) 95 - 99 % Mzsctvsdqmo-LXQ-QEC 29.4 (H) 21 - 28 MMOL/L Specimen Performing Laboratory [facility] [address] [place] [address] 29202 * POC GLUCOSE (12/02/2017 1:49 PM) Component Value Ref Range Glucose, POC 121 (H) 70 - 100 MG/DL Specimen Performing Laboratory [facility] [address] [place] [address] 07377 * POC GLUCOSE (12/02/2017 1:30 PM) Component Value Ref Range Glucose, POC 113 (H) 70 - 100 MG/DL Specimen Performing Laboratory [facility] [address] [place] [address] 04319 * POC IONIZED CALCIUM (12/02/2017 11:49 AM) Component Value Ref Range Ionized Calcium-POC 1.20 1.0 - 1.3 MMOL/L Specimen Performing Laboratory [facility] [address] [place] [address] 15681 * POC SODIUM (12/02/2017 11:49 AM) Component Value Ref Range Sodium-POC 144 137 - 147 MMOL/L Specimen Performing Laboratory [facility] [address] [place] [address] 43814 * POC POTASSIUM (12/02/2017 11:49 AM) Component Value Ref Range Potassium-POC 3.5 3.5 - 5.1 MMOL/L Specimen Performing Laboratory [facility] [address] [place] [address] 03810 * POC HEMATOCRIT (12/02/2017 11:49 AM) Component Value Ref Range Hemoglobin POC 10.9 (L) 12.0 - 15.0 GM/DL Hematocrit POC 32.0 (L) 36 - 45 % Specimen Performing Laboratory [facility] [address] [place] [address] 35340 * POC BLOOD GAS ARTERIAL (12/02/2017 11:49 AM) Component Value Ref Range PH-ART-POC 7.39 7.35 - 7.45 BJX9-VZT-FYY 43 35 - 45 MMHG PO2-ART-POC 259 (H) 80 - 100 MMHG Base Ex-ART-POC 1.0 MMOL/L O2 Sat-ART-POC 100.0 (H) 95 - 99 % Plxefdsvpte-FNI-HMQ 25.8 21 - 28 MMOL/L Specimen Performing Laboratory [facility] [address] [place] [address] 06938 * POC IONIZED CALCIUM (12/02/2017 11:37 AM) Component Value Ref Range Ionized Calcium-POC 1.22 1.0 - 1.3 MMOL/L Specimen Performing Laboratory [facility] [address] [place] [address] 79116 * POC SODIUM (12/02/2017 11:37 AM) Component Value Ref Range Sodium-POC 144 137 - 147 MMOL/L Specimen Performing Laboratory MA[facility] [address] [place] [address] 97583 * POC POTASSIUM (12/02/2017 11:37 AM) Component Value Ref Range Potassium-POC 3.6 3.5 - 5.1 MMOL/L Specimen Performing Laboratory [facility] [address] [place] [address] 29453 * POC HEMATOCRIT (12/02/2017 11:37 AM) Component Value Ref Range Hemoglobin POC 11.6 (L) 12.0 - 15.0 GM/DL Hematocrit POC 34.0 (L) 36 - 45 % Specimen Performing Laboratory [facility] [address] [place] [address] 56473 * POC BLOOD GAS ARTERIAL (12/02/2017 11:37 AM) Component Value Ref Range PH-ART-POC 7.35 7.35 - 7.45 ICY7-RLI-RDB 47 (H) 35 - 45 MMHG PO2-ART-POC 311 (H) 80 - 100 MMHG Base Ex-ART-POC 0.0 MMOL/L O2 Sat-ART-POC 100.0 (H) 95 - 99 % Suwkzicigpn-XFG-LVX 25.8 21 - 28 MMOL/L Specimen Performing Laboratory [facility] [address] [place] [address] 39035 * POC GLUCOSE (12/02/2017 11:35 AM) Component Value Ref Range Glucose, POC 99 70 - 100 MG/DL Specimen Performing Laboratory [facility] [address] [place] [address] 61429 * POC GLUCOSE (12/02/2017 8:22 AM) Component Value Ref Range Glucose, POC 102 (H) 70 - 100 MG/DL Specimen Performing Laboratory [facility] [address] [place] [address] 83984 in this encounter Visit Diagnoses Diagnosis Coronary artery disease involving [place] coronary artery of [place] heart with unstable angina pectoris (HCC) - Primary Coronary artery disease involving [place] heart, angina presence unspecified, unspecified vessel or lesion type Acute on chronic combined systolic and diastolic heart failure, NYHA class 2 ( [facility]) Acute on chronic combined systolic and diastolic heart failure Essential hypertension Unspecified essential hypertension History of tobacco abuse Personal history of tobacco use, presenting hazards to health Mixed hyperlipidemia On mechanically assisted ventilation ([facility]) PAD (peripheral artery disease) ([facility]) Peripheral vascular disease, unspecified Type 2 diabetes mellitus with complication, with long-term current use of insulin ([facility]) Tooth decay Unspecified dental caries Admitting Diagnoses Diagnosis Coronary artery disease involving [place] coronary artery of [place] heart with unstable angina pectoris ([facility]) - Coronary artery disease involving [place] coronary artery of [place] heart with unstable angina pectoris ([facility]) [I25.110] CAD (coronary artery disease) Administered Medications [...] g/hr (40 mL/hr), Intravenous, 250 mL, CONTINUOUS (TRAY SETTER FROM RX), Starting Thu12/02/17 at 1615, Until [...]
--- OUTSIDE RECORDS SUMMARY | 2017-12-09 02:59 | XMS REPORT | Encounter Summary ---
Author Author [facility] Organization [facility] Address Unknown Phone Unavailable Care Team Providers Care Box Loader Name Role Phone Deann Parker MD PCP Encounter Details Date Type Department Care Team Description 12/04/2017 Pharmacy Visit [facility] [address] [place] [address] Social History Tobacco Use Types Packs/Day Years [...]
--- OUTSIDE RECORDS SUMMARY | 2017-12-09 02:59 | XMS REPORT | Encounter Summary ---
Author Author [facility] Organization [facility] Address Unknown Phone Unavailable Care Team Providers Care Email Marketer Name Role Phone Deann Parker MD PCP Encounter Details Date Type Department Care Team Description 12/02/2017 Procedure Pass Cardiovascular Operating Room [address] [place] [address] Social History Tobacco Use Types Packs/Day Years [...]
--- OUTSIDE RECORDS SUMMARY | 2017-12-09 03:01 | XMS REPORT | Encounter Summary ---
Author Author [facility] Organization [facility] Address Unknown Phone Unavailable Care Team Providers Care Pc Analyst Name Role Phone Deann Parker MD PCP Reason for Visit * Auth/Cert Status Reason Specialty Diagnoses / Referred By Referred To Procedures Contact Contact Diagnoses Coronary artery disease involving [place] coronary artery of [place] heart with unstable angina pectoris (HCC) Coronary artery disease involving [place] coronary artery of [place] heart with unstable angina pectoris (HCC) [I25.110] P rocedures BYPASS GRAFT CORONARY ARTERY Encounter Details Date Type Department Care Team Description 12/02/2017 Anesthesia Cardiovascular Operating Candy Strong MD Event Room [address] [facility] [address] [place] [address] [place] [address] [phone] Anesthesia Record Procedure Name Responsible Anesthesia Start [...] Precedex 0.7 mcg/kg/hr Blood products/Hemostatic Agents/Anticoagulants: Heparin: 74497 units Protamine: 180 mg Amicar: 2 g/hr Special Considerations: N/A Patient was transported with supplemental oxygen and routine cardiovascular monitoring, including pulse oximetry. Individuals present during transport include Dakota Waters CRNA, Dr. Strong, NIGHT FILLER, Roll Forming Machine Set Up Mechanic. The patient was admitted to the ICU [...] monitored Staff Anesthesiologist: CANDY STRONG Surgeon: JEIMY YI Performed personally Indication for AYALA: assessment of ascending aorta, assessment of surgical repair , defect repair evaluation, hemodynamic monitoring, ventricular function, volume assessment, confirmation of pre-procedure diagnosis and valvular assessment CPT codes: 66759 - AYALA 2D imaging (w or w/o M-mode) including probe placement, image acquisition, interpretation & report, 57193 - PWD and/or CWD f/u or limited study and 32200 - Color flow velocity mapping Patient location: [...] Apical anterior: normal Apical inferior: hypokinetic [place] Basal anteroseptal: normal Basal inferolateral: hypokinetic Mid anteroseptal: normal Mid inferolateral: normal Apical lateral: hypokinetic Apical septal: normal [place]: hypokinetic Mid [place] View Mid anteroseptal: normal Mid anterior: normal [...] Cardiovascular Recent diagnostic studies: ECG and echocardiogram -[facility] 11/23/17 revealed an occluded LAD with faint [...] mid left anterior descending artery with faint epmv-xr-myus collaterals. b. 90% mid second obtuse marginal stenosis with a 70% ostial circumflex stenosis. c. 95% proximal posterior lateral stenosis. PFTs 11/23/2017 FVC 73% FEV1 83% [id number] 128% DLCO 52% Diagnostic Tests Hematology: Lab [...] risks discussed with patient, healthcare power of family law attorney and spouse (DPOA fiance). Use of blood products discussed with patient, healthcare power of family law attorney and spouse (DPOA fiance); consented to blood products. Plan discussed with: anesthesiologist and NITROCELLULOSE OPERATOR. in this encounter Plan of Treatment Name [...]
--- OUTSIDE RECORDS SUMMARY | 2017-12-09 03:01 | XMS REPORT | Encounter Summary ---
Author Author [facility] Organization [facility] Address Unknown Phone Unavailable Care Team Providers Care Recreational Aide Name Role Phone Ashley Banegas MD PCP [...] winchester MD BYPASS GRAFT CORONARY Room [address] ARTERY x3, LEFT INTERNAL [address], [place] [address] [place] [address] LEFT ENDOSCOPIC SAPHENOUS [phone] VEIN HARVEST Social History Tobacco Use Types [...] History: Diagnosis Date Bilateral carotid artery disease ([facility]) 11/17/2017 05/04/17 - Carotid U/S: mild 1-39% stenosis, nonobstructive disease bilaterally. Cancer ([facility]) 2012 Cervical COPD (chronic obstructive pulmonary disease) ([facility]) Coronary artery disease involving [place] coronary artery of [place] heart with unstable angina pectoris ([facility]) 11/17/2017 03/04/17 - LHC: Total [...] abuse 11/17/2017 Mixed hyperlipidemia 11/17/2017 Myocardial infarction ([facility]) 04/2017 PAD (peripheral artery disease) ([facility]) 11/17/2017 TMJ click Type 2 diabetes mellitus with complication, with long-term current use of insulin ([facility]) 11/17/2017 Allergies: Fish containing products; [...] heather and ARTURO-I and she was diuresed. hospice educator was consulted for lifestyle modification for poorly controlled diabetes. She was stable for discharge on POD # 6. Condition at Discharge: Stable Discharge Diagnoses: Hospital Problems Active Problems * (Principal)Coronary artery disease involving [place] coronary artery of [place] heart with unstable angina pectoris ([facility]) PAD (peripheral artery disease) ([facility]) Essential hypertension Mixed hyperlipidemia History of tobacco abuse Type 2 diabetes mellitus with complication, with long-term current use of insulin ([facility]) Tooth decay Acute on chronic combined systolic and diastolic heart failure, NYHA class 2 ( [facility]) On mechanically assisted ventilation ([facility]) Surgical Procedures: 1. Coronary artery [...] or concerns regarding your hospital stay. Call [phone] Discharging attending physician: JEIMY YI [[id number]] Cardiac Diet Limiting unhealthy fats and cholesterol [...] home, you can call a dietitian at [phone]. Incision Care *Keep your incision clean and [...] to follow at 1:30. Provider JEIMY YI [[id number]] Location [facility] Clinic Appointment date: 01/12/2018 Appointment time: 12:30 PM Return Appointment You will need to call to schedule appointment to be seen in 1 week. Provider ASHLEY BANEGAS [[id number]] Return Appointment You will be contacted for follow up to be seen in 4 weeks. Provider ARNULFO CORTES [[id number]] Cardiac Rehab Your physician has referred you to outpatient cardiac rehab. Contact [facility] Cardiac Rehab Department at [phone] to schedule an appointment. Opioid (Narcotic) Safety [...] Provider) Arnulfo Cortes M.D. Special Visit Information [facility] Follow Up - Established Patient [...] Post - Op with Jeimy Yi MD [facility] ([facility] [address] [place] [id number] Signed: Richa Ni PA-C 12/08/2017 cc: Primary Care Physician: Ashley Banegas Referring physicians: Ashley Banegas MD Additional provider(s): Arnulfo Cortes MD in this encounter Discharge Instructions * Discharge Instr - Other Info - Maryjane Whitehead RN - 12/08/2017 2:21 PM CDT * Discharge Instr - Case Management - Meghan Berger RN - 12/08/2017 11:00 AM CDT Your home health agency is [facility]. They will contact you within 24- 48 hours to set up you admission visit. If you do not hear from them in that time, please call them at [phone]. If you have any additional questions or concerns regarding home health, please call Meghan Berger RN, BSN Integrated Nurse Director Of Parks And Recreation in this encounter Medications at Time of [...] be brought to the bedside by pharmacy publications inspector team when ready. Pt's RNSujatha, mert. * [...] 2 diabetes mellitus: A1c 10.4 , uncontrolled [employer] regimen: Levemir 35 units daily, NovoLog 10 units with meals, mid dose correction factor Hypoglycemic episodes on this regimen: None but fasting glucose was between 70-90 Follows up with for diabetes management: PCP at [place], [place] Diabetic-complications assessment: Retinopathy: Yes Peripheral neuropathy: [...] FREET4, FREEINDEX No results found for: FREET3, [id number], THYBINDGLB Meds aspirin 81 mg Oral QDAY [...] Q6H PRN Terrance Mack MD Pager # [phone] 12/08/2017 * - 12/08/2017 9:00 AM CDT [...] [place] heart with unstable angina pectoris ([facility]) Active Problems: PAD (peripheral artery disease) ([facility]) Essential hypertension Mixed hyperlipidemia History of tobacco abuse Type 2 diabetes mellitus with complication, with long-term current use of insulin ([facility]) Tooth decay Acute on chronic combined systolic and diastolic heart failure, NYHA class 2 ( [facility]) Assessment/Plan: Neuro Continue PRN oxycodone with scheduled Tylenol. Uses tramadol [employer] for low back pain. CV SR, BP 100-140, cont ASA 81 mg (hold for plts <80k) and statin. Tolerating toprol 25 and ACEI in the initial post op phase. Intra op AYALA LVEF 45 %. [employer] Norvasc, spironolactone, isosorbid, lisinopril, metoprolol. Resp Daily [...] with Dr. Yi and was brought to [facility] ICU for recovery. She was extubated [...] Date: 12/06/2017 Zamudio AC=Airway clearance AM=Aerosolized medication BA=[place] aerosol DB&C=Deep breathe & cough FEV1=Forced expiratory volume in first second) IC=Inspiratory capacity LE=Lung expansion MDI=Metered dose inhaler Neb=Nebulizer O2=Oxygen Oxim=Oximetry PEFR=Peak expiratory flow rate DIE CAST OPERATOR=Rapid Response Team Associated attestation - Deniz Langston [...] (HCC) Active Problems: PAD (peripheral artery disease) ([facility]) Essential hypertension Mixed hyperlipidemia History of tobacco abuse Type 2 diabetes mellitus with complication, with long-term current use of insulin ([facility]) Tooth decay Acute on chronic combined systolic and diastolic heart failure, NYHA class 2 ( [facility]) Assessment/Plan: Neuro Continue PRN oxycodone with scheduled Tylenol. Uses tramadol [employer] for low back pain. CV SR, BP 90-130, cont ASA 81 mg (hold for plts <80k) and statin. Tolerating toprol 25 and ACEI in the initial post op phase. Intra op AYALA LVEF 45 %. [employer] Norvasc, spironolactone, isosorbid, lisinopril, metoprolol. Resp Daily [...] with Dr. Yi and was brought to [facility] ICU for recovery. She was extubated [...] [place] heart with unstable angina pectoris ([facility]) Active Problems: PAD (peripheral artery disease) ([facility]) Essential hypertension Mixed hyperlipidemia History of tobacco abuse Type 2 diabetes mellitus with complication, with long-term current use of insulin ([facility]) Tooth decay Acute on chronic combined systolic and diastolic heart failure, NYHA class 2 ( [facility]) On mechanically assisted ventilation ([facility]) Type 2 diabetes mellitus: A1c 10.4 , uncontrolled [employer] regimen: Levemir 35 units daily, NovoLog 10 units with meals, mid dose correction factor Hypoglycemic episodes on this regimen: None but fasting glucose was between 70-90 Follows up with for diabetes management: PCP at [place], [place] Diabetic-complications assessment: Retinopathy: Yes Peripheral neuropathy: [...] Date: 12/04/2017 Zamudio AC=Airway clearance AM=Aerosolized medication BA=[place] aerosol DB&C=Deep breathe & cough FEV1=Forced expiratory volume in first second) IC=Inspiratory capacity LE=Lung expansion MDI=Metered dose inhaler Neb=Nebulizer O2=Oxygen Oxim=Oximetry PEFR=Peak expiratory flow rate DIE CAST OPERATOR=Rapid Response Team * Lars Tatum MD - 12/04/2017 2:23 PM CDT Formatting of this note may be different from the original. General Progress Note Admission Date: 12/02/2017 LOS: 2 days Assessment/Plan: Principal Problem: Coronary artery disease involving [place] coronary artery of [place] heart with unstable angina pectoris ([facility]) Active Problems: PAD (peripheral artery disease) ([facility]) Essential hypertension Mixed hyperlipidemia History of tobacco abuse Type 2 diabetes mellitus with complication, with long-term current use of insulin ([facility]) Tooth decay Acute on chronic combined systolic and diastolic heart failure, NYHA class 2 ( [facility]) On mechanically assisted ventilation ([facility]) Type 2 diabetes mellitus: A1c 10.4 , uncontrolled [employer] regimen: Levemir 35 units daily, NovoLog 10 units with meals, mid dose correction factor Hypoglycemic episodes on this regimen: None but fasting glucose was between 70-90 Follows up with for diabetes management: PCP at [place], [place] Diabetic-complications assessment: Retinopathy: Yes Peripheral neuropathy: [...] (HCC) Active Problems: PAD (peripheral artery disease) ([facility]) Essential hypertension Mixed hyperlipidemia History of tobacco abuse Type 2 diabetes mellitus with complication, with long-term current use of insulin ([facility]) Tooth decay Acute on chronic combined systolic and diastolic heart failure, NYHA class 2 ( [facility]) Assessment/Plan: Neuro Continue PRN oxycodone with scheduled Tylenol. Uses tramadol [employer] for low back pain. CV SR, BP 90-130, cont ASA 81 mg (hold for plts <80k) and statin. Hold BB and ACEI in the initial post op phase. Intra op AYALA LVEF 45%. [employer] Norvasc, spironolactone, isosorbid, lisinopril, metoprolol. Resp Daily [...] with Dr. Yi and was brought to [facility] ICU for recovery. She was extubated [...] Date of Admission: 12/02/2017 Room: [place] [id number] : 1955 Insurance: Primary: Medicare Secondary: unknown Address: [address] [place] [id number] Patient (home) Marital Status: Occupation: Unknown ED Contact: Ritesh Burk ED Phone #: [phone] CTS: Iva Crystal Flat Grinder: Sebastian Cardiac Procedures and Events CAB12/02/17 Risk Factors Risk Factors: Obesity, Hyperlipidemia, Diabetes-type II BP: 112/69 Height: 157.5 cm (62.01") Weight: 73.8 kg (162 lb 9.6 oz) BMI (Calculated): 28.74 Medical History has a past medical history of Bilateral carotid artery disease ([facility]) (11/17/2017) ; Cancer ([facility]) (2012); COPD (chronic obstructive pulmonary disease) ([facility]); Coronary artery disease involving [place] coronary artery of [place] heart with unstable angina pectoris ([facility]) (11/17/2017); HARDING (dyspnea on exertion); Essential hypertension (11/17/2017); Gastrointestinal disorder; History of tobacco abuse (11/17/2017); Mixed hyperlipidemia (11/17/2017); Myocardial infarction ([facility]) (04/2017) ; PAD (peripheral artery disease) ([facility]) (11/17/2017); TMJ click; and Type 2 diabetes mellitus with complication, with long-term current use of insulin ([facility] ) (11/17/2017). Labs Cholesterol Date [...] Date: 12/03/2017 Zamudio AC=Airway clearance AM=Aerosolized medication BA=[place] aerosol DB&C=Deep breathe & cough FEV1=Forced expiratory volume in first second) IC=Inspiratory capacity LE=Lung expansion MDI=Metered dose inhaler Neb=Nebulizer O2=Oxygen Oxim=Oximetry PEFR=Peak expiratory flow rate DIE CAST OPERATOR=Rapid Response Team * Katarzyna Pal RN - [...] in place. Will monitor. * Nona Charles, MED SPEC - 12/03/2017 10:44 AM CDT Formatting of [...] (HCC) Active Problems: PAD (peripheral artery disease) ([facility]) Essential hypertension Mixed hyperlipidemia History of tobacco abuse Type 2 diabetes mellitus with complication, with long-term current use of insulin ([facility]) Tooth decay Acute on chronic combined systolic and diastolic heart failure, NYHA class 2 ( [facility]) On mechanically assisted ventilation ([facility]) Assessment/Plan: Neuro Continue PRN oxycodone with scheduled Tylenol. Uses tramadol [employer] for low back pain. CV SR, BP 106/54, d/c PA cath, cont ASA 81 mg (hold for plts <80k) and statin. Hold BB and ACEI in the initial post op phase. Intra op AYALA LVEF 45%. [employer] Norvasc, spironolactone, isosorbid, lisinopril, metoprolol. Resp Daily [...] A1c 10.4 %. Insulin gtt per Modified [place] Protocol-consult endo. Activity Ambulate TID with nursing. [...] and coordination of care. Nona Charles APRN [facility] Intensive Care Pager [phone] 12/03/2017 Subjective: HPI: Nimisha Jaramillo is a 62 y.o. female with a history of insulin-dependent diabetes, hypertension, hypertriglyceridemia, COPD, carotid stenosis and known coronary disease with previous PCI. Her LHC on 12/01/17 showed chronic occlusion of her LAD, an 80% proximal diagonal, 90% mid OM, a 95% distal RCA. She underwent elective CABG today with Dr. Yi and was brought to [facility] ICU for recovery. She was extubated [...] Date: 12/03/2017 Zamudio AC=Airway clearance AM=Aerosolized medication BA=[place] aerosol DB&C=Deep breathe & cough FEV1=Forced expiratory volume in first second) IC=Inspiratory capacity LE=Lung expansion MDI=Metered dose inhaler Neb=Nebulizer O2=Oxygen Oxim=Oximetry PEFR=Peak expiratory flow rate DIE CAST OPERATOR=Rapid Response Team * Philomena Leon, RN - 12/03/2017 12:26 AM CDT 0016 CPAP trial started 0053 Post trial ABG within parameters to extubate; notified S. Heldstab, SAP ARIBA CONSULTANT and orders received ok to extubate. 0100 [...] of green OG output. Notified Giovanni Zacarias, SAP ARIBA CONSULTANT and orders received for one time dose of reglan IV. * Philomena Leon RN - 12/02/2017 11:10 PM CDT 2245 Notified Giovanni Zacarias, SAP ARIBA CONSULTANT of CI <2; orders to draw mixed venous SvO2. 2319: Svo2 back at 62.9, CHAP[place]O calculation obtained and CI 2.82. Notified Giovanni Zacarias, SAP ARIBA CONSULTANT and orders to monitor and recheck SvO2/[place]O [...] mL albumin bolus obtained. * Shelley Yousif, MED SPEC - 12/02/2017 4:35 PM CDT Formatting of [...] [place] heart with unstable angina pectoris ([facility]) Active Problems: PAD (peripheral artery disease) ([facility]) Essential hypertension Mixed hyperlipidemia History of tobacco abuse Type 2 diabetes mellitus with complication, with long-term current use of insulin ([facility]) Tooth decay Acute on chronic combined systolic and diastolic heart failure, NYHA class 2 ( [facility]) On mechanically assisted ventilation ([facility]) Assessment/Plan: Neuro Continue to wean [...] A1c 10.4 %. Insulin gtt per Modified [place] Protocol. Activity HOB to 30 degrees over [...] and coordination of care. Shelley Yousif APRN [facility] Intensive Care Pager [phone] 12/02/2017 Subjective: HPI: Nimisha Jaramillo is a 62 y.o. female with a history of insulin-dependent diabetes, hypertension, hypertriglyceridemia, COPD, carotid stenosis and known coronary disease with previous PCI. Her LHC on 12/01/17 showed chronic occlusion of her LAD, an 80% proximal diagonal, 90% mid OM, a 95% distal RCA. She underwent elective CABG today with Dr. Yi and was brought to [facility] ICU post-operatively for further management. REVIEW [...] Plavix was 11/23/17. Italo Russo PA-C Pager [phone] Current problem list includes: Principal Problem: Coronary [...] dictated by Dr. Iva Russo PA-C Pager [phone] Attestation signed by Jeimy Yi MD at 11/25/17 [phone] I appreciate the consult. I met and [...] referred to Dr. Cortes from her home web publisher to attempt PCI of her known ETHICAL HACKER LAD lesion. Dr. Crotes consulted CTS for evaluation for surgical revascularization after [facility] today revealed severe, multivessel CAD in [...] Reoperation: 3.351% CATH FINDINGS: Coronary Stenosis LAD--> ETHICAL HACKER Diag--> 80% proximal OM --> 70% ostial, 90% mid RCA--> 95% distal PMH: Past Medical History: Diagnosis Date Bilateral carotid artery disease ([facility]) 11/17/2017 05/04/17 - Carotid U/S: mild 1-39% stenosis, nonobstructive disease bilaterally. Coronary artery disease involving [place] coronary artery of [place] heart with unstable angina pectoris ([facility]) 11/17/2017 03/04/17 - [facility]: Total occlusion of the mid LAD, [...] Mixed hyperlipidemia 11/17/2017 PAD (peripheral artery disease) ([facility]) 11/17/2017 Type 2 diabetes mellitus with complication, with long-term current use of insulin ([facility]) 11/17/2017 PSH: Past Surgical History: [...] LV , EF 60%, normal LVEDP. 06/16/16 [facility]: Severe in-stent restenosis in prox and mid [...] circumflex, fairly small artery. Normal LVEDP. 06/2015 [facility]: 2.5 x 18 mm Resolute Integrity stent to mid circumflex, prox lesion is 40% stenosed, distal lesion 80%. Patent multiple stents in prox, mid, and distal LAD w/ mild in-stent restenosis. Patent stent in RCA w/ mild disease in distal RCA. 05/2015 [facility]: 3.5 x 12 mm & 2.75 x 24 mm Promus Premier overlapping stents to mid RCA. Patent stents in the LAD. Severe stenosis at distal LAD, 70% prox circumflex and 70-80% mid to distal circ/OM branch. [facility]: 2.5 x 24 mm and 2.5 x 20 mm Promusto distal and proximal LAD, 50% prox circumflex, 70-80% mid to distal circumflex involving the proximal portion of OM1, 50-60% mid RCA, LV anterior wall hypokinetic. EF 40%. Essential hypertension Mixed hyperlipidemia History of tobacco abuse Type 2 diabetes mellitus with complication, with long-term current use of insulin ([facility]) Plan: Dr. Yi has reviewed all of the patient's preop testing. He agrees that surgical intervention is the most appropriate course of action. The entire procedure, risks, benefits, alternatives, and complications have been discussed. Potential risks include but are not limited to infection, arrhythmias , bleeding requiring re-operation, prolonged intubation, ARF requiring hemodialysis, CVA, UT, and possibly even . The patient understands, [...] of arrival for Thursday. Italo Russo PA-C [phone] in this encounter Consult Notes * Jennifer [...] 2 diabetes mellitus: A1c 10.4 , uncontrolled [employer] regimen: Levemir 35 units daily, NovoLog 10 units with meals, mid dose correction factor Hypoglycemic episodes on this regimen: None but fasting glucose was between 70-90 Follows up with for diabetes management: PCP at [place], [place] Diabetic-complications assessment: Retinopathy: Yes Peripheral neuropathy: [...] of hypoglycemia. Patient was also seen by environmental educator at the last visit and it [...] History: Diagnosis Date Bilateral carotid artery disease ([facility]) 11/17/2017 05/04/17 - Carotid U/S: mild 1-39% stenosis, nonobstructive disease bilaterally. Cancer ([facility]) 2012 Cervical COPD (chronic obstructive pulmonary disease) ([facility]) Coronary artery disease involving [place] coronary artery of [place] heart with unstable angina pectoris ([facility]) 11/17/2017 03/04/17 - [facility]: Total occlusion of the mid LAD, [...] abuse 11/17/2017 Mixed hyperlipidemia 11/17/2017 Myocardial infarction ([facility]) 04/2017 PAD (peripheral artery disease) ([facility]) 11/17/2017 TMJ click Type 2 diabetes mellitus with complication, with long-term current use of insulin ([facility]) 11/17/2017 Past Surgical History Past Surgical History: Procedure Laterality Date TOOTH EXTRACTION Bilateral 11/24/2017 EXTRACTION TEETH #6, 7, 8, 9, 10, 11, 14, 22-27 performed by Dena Gayle DDS at [facility] CORONARY ARTERY BYPASS GRAFT N/A 12/02/2017 BYPASS GRAFT CORONARY ARTERY x3, LEFT INTERNAL MAMMARY ARTERY HARVEST, LEFT ENDOSCOPIC SAPHENOUS VEIN HARVEST performed by Jeimy Yi MD at [facility] CARDIAC SURGERY Total of 13 stents [...] clubbing, cyanosis or edema Skin: no rashes/lesions ENROBER TENDER: Grossly nonfocal Lab Review Point of Care [...] FREET4, FREEINDEX No results found for: FREET3, [id number], THYBINDGLB Eugenia Gutierrez MD Endocrinology Fellow PGY-5 [...] fully evaluated, and discussed patient with the [facility] ICU team. The patient is critically [...] and diastolic heart failure, NYHA class 2 ([facility]) 12/02/2017 On mechanically assisted ventilation ([facility]) 12/02/2017 CAD (coronary artery disease) 11/23/2017 11/24/17-cardiac catheterization revealed an occluded mid left anterior descending artery with faint [id number]-qpun collaterals, 90% mid second obtuse marginal stenosis with a 70% ostial circumflex stenosis and 95% proximal posterior lateral stenosis. Bilateral carotid artery disease ([facility]) 11/17/2017 05/04/17 - Carotid U/S: mild 1-39% stenosis, nonobstructive disease bilaterally. Coronary artery disease involving [place] coronary artery of [place] heart with unstable angina pectoris ([facility]) 11/17/2017 03/05/17 - [facility]: Total occlusion of the mid LAD, [...] circumflex, fairly small artery. Normal LVEDP. 06/2015 [facility]: 2.5 x 18 mm Resolute Integrity stent to mid circumflex, prox lesion is 40% stenosed, distal lesion 80%. Patent multiple stents in prox, mid, and distal LAD w/ mild in-stent restenosis. Patent stent in RCA w/ mild disease in distal RCA. 05/2015 [facility]: 3.5 x 12 mm & 2.75 x 24 mm Promus Premier overlapping stents to mid RCA. Patent stents in the LAD. Severe stenosis at distal LAD, 70% prox circumflex and 70-80% mid to distal circ/OM branch. [facility]: 2.5 x 24 mm and 2.5 x 20 mm Promusto distal and proximal LAD, 50% prox circumflex, 70-80% mid to distal circumflex involving the proximal portion of OM1, 50-60% mid RCA, LV anterior wall hypokinetic. EF 40%. PAD (peripheral artery disease) ([facility]) 11/17/2017 Essential hypertension 11/17/2017 Mixed hyperlipidemia 11/17/2017 History of tobacco abuse 11/17/2017 Type 2 diabetes mellitus with complication, with long-term current use of insulin ([facility]) 11/17/2017 Tooth decay 11/16/2017 Added automatically from request for surgery [id number] Neuro: PRN tylenol and PRN opioids per [...] Ref Range PH-ART-POC 7.35 7.35 - 7.45 YWH8-VHR-XLU 47 (H) 35 - 45 MMHG PO2-ART-POC 311 (H) 80 - 100 MMHG Base Ex-ART-POC 0.0 MMOL/L O2 Sat-ART-POC 100.0 (H) 95 - 99 % Bswsbccwdmm-AJF-JFW 25.8 21 - 28 MMOL/L POC HEMATOCRIT [...] Ref Range PH-ART-POC 7.39 7.35 - 7.45 IOM2-MDW-MXO 43 35 - 45 MMHG PO2-ART-POC 259 (H) 80 - 100 MMHG Base Ex-ART-POC 1.0 MMOL/L O2 Sat-ART-POC 100.0 (H) 95 - 99 % Dubhyfxywjo-KZU-WIP 25.8 21 - 28 MMOL/L POC HEMATOCRIT [...] Range PH-ART-POC 7.46 (H) 7.35 - 7.45 NCY8-CBB-SYP 42 35 - 45 MMHG PO2-ART-POC 581 (H) 80 - 100 MMHG Base Ex-ART-POC 6.0 MMOL/L O2 Sat-ART-POC 100.0 (H) 95 - 99 % Ujnaayzporp-YWD-KOB 29.4 (H) 21 - 28 MMOL/L POC [...] Range PH-ART-POC 7.46 (H) 7.35 - 7.45 GMM9-WDC-JIK 40 35 - 45 MMHG PO2-ART-POC 566 (H) 80 - 100 MMHG Base Ex-ART-POC 5.0 MMOL/L O2 Sat-ART-POC 100.0 (H) 95 - 99 % Mqwwshugcgi-IHQ-ZJJ 28.6 (H) 21 - 28 MMOL/L POC [...] Range PH-ART-POC 7.51 (H) 7.35 - 7.45 UFQ0-SXQ-WQO 34 (L) 35 - 45 MMHG PO2-ART-POC 439 (H) 80 - 100 MMHG Base Ex-ART-POC 4.0 MMOL/L O2 Sat-ART-POC 100.0 (H) 95 - 99 % Bkazkwoornk-VSL-TVV 27.3 21 - 28 MMOL/L POC HEMATOCRIT [...] Range PH-ART-POC 7.49 (H) 7.35 - 7.45 EDR1-RRR-KCF 33 (L) 35 - 45 MMHG PO2-ART-POC 299 (H) 80 - 100 MMHG Base Ex-ART-POC 2.0 MMOL/L O2 Sat-ART-POC 100.0 (H) 95 - 99 % Sxbetvpqotw-EJP-SVX 25.0 21 - 28 MMOL/L POC HEMATOCRIT [...] Ref Range PH-ART-POC 7.44 7.35 - 7.45 FJS1-AUS-UZF 32 (L) 35 - 45 MMHG PO2-ART-POC 81 80 - 100 MMHG Base Def-ART-POC 3.0 MMOL/L O2 Sat-ART-POC 96.0 95 - 99 % Mvvmrcnryco-FQD-BGM 21.7 21 - 28 MMOL/L POC GLUCOSE [...] Diagnostic Procedures Review: reviewed Mirza Lazo DO Manager Of International Anesthesiology and Critical Care [phone] in this encounter Miscellaneous Notes * Case Mgmt DC Plan - Meghan Berger RN - 12/08/2017 11:08 AM CDT Case Management Progress Note NAME:Nimisha Jaramillo :1955 AGE: 62 y.o. ADMISSION DATE: 12/02/2017 DAYS ADMITTED: LOS: 6 days Todays Date: 12/08/2017 Odcc-RIX-8-CABG- increase activity,diabetic education, home today vs tomm. Interventions ? Support EMR and POC reviewed. ? Info or Referral ? Discharge Planning Met with pt and spouse at bedside to discuss POC. Discussed HH and pt agreeable. Pt used [facility] prior and would like to use again if possible. Geovanna at [facility] called and verified they could accept pt on service. ([phone], [phone]) Referral sent. Will send orders/AVS on DC. Pt had no other concerns at this time. CM will continue to follow for any DC needs that may arise. Update:1413- [facility] ? Medication Needs ? Financial ? Legal ? Other Disposition ? Expected Discharge Date Expected Discharge Date: 12/05/17 ? Transportation Does the patient need discharge transport arranged?: No Transportation Name, Phone and Availability #1: - Ritesh Burk Does the patient use Medicaid Transportation?: No ? Discharge Disposition Anticipate DC with family assistance and [employer]. Meghan Berger RN, BSN Integrated Nurse Director Of Parks And Recreation Pager [phone] * Care Plan - Annalise Lee RN [...] referred to Dr. Cortes from her home web publisher to attempt PCI of her known ETHICAL HACKER LAD lesion. Dr. Cortes consulted CTS for evaluation for surgical revascularization after [facility] today revealed severe, multivessel CAD in [...] Vince Bucio as he is the property maintenance technician of the pt's apartment complex. Patient Address/Phone [address] [phone] (home) Emergency Contact Extended Emergency Contact Information Primary Emergency Contact: Ritesh Burk [facility] Relation: Spouse Healthcare Directive Healthcare Directive: Yes, patient has a healthcare directive Type of Healthcare Directive: Durable power of patent prosecution attorney for healthcare, Healthcare directive Location of [...] and has to utilize her [facility] monthly for assistance. If the clinic does not have her medications she cannot fill them elsewhere d/t cost) ? Source of Income Source Of Income: Food Assistance, Other (comment) ($192/month in food stamps. Pt also receives medication assistance from [facility]) ? Financial Assistance Needed? Pt has no Part D coverage at this time because she missed the open enrollment period. Pt says she has to have all medications filled at the local [facility] in [place] and they have a ramy they access [...] Ashley Banegas, , ? Pharmacy [facility] [place] [address] [address] [place] [address] [address] [facility] [address] ? Durable Medical Equipment Durable Medical Equipment at home: None ? Home Health Receiving home health: Yes Agency name: [facility] [phone] Would patient use this agency again?: Yes [...] ? Outpatient Therapy PT: No OT: No PAPER COUNTER: No ? Prison Facility/Intermediate SNF: No NH: No ? Inpatient Rehab IPR: No ? [facility] Acute [facility] Hospital LTACH: No ? Acute Hospital Stay Acute Hospital Stay: In the past Was patient's stay within the last 30 days?: Yes When did patient receive care?: November 23 - 2017 Name of hospital: [facility] Readmission Code Group: 8. Scheduled Readmission 8. Scheduled Readmission: 8c. Surgery/procedure Maura Boswell LMSW Surgery - Cardiothoracic/Vascular Pull Over *8220 * Care Plan - Philomena Leon [...] MD - 12/02/2017 4:18 PM CDT THE [address] [id number] PATIENT NAME: NIMISHA JARAMILLO MR#/PT#: [id number] OPERATIVE REPORT : 1955 DATE OF OPERATION: 12/02/2017 ROOM #: 307 OPERATIVE REPORT SURGEON: Jeimy Yi III, MD (Trip) RELATIONSHIP ASSOCIATE SURGEON(S): MYRIAM Upton PA-C DICTATING PROVIDER: Jeimy [...] Hess) Hanny Yi III, MD / MedQ [id number] P cc: - Jeimy Hess) Hanny Yi [...] ICU - stable Emma Mcnally PA-C Pager [phone] in this encounter Plan of Treatment Name [...] 100 MG/DL Specimen Performing Laboratory MAIN LAB [address] [place] [address] * POC GLUCOSE (12/08/2017 7:31 AM) Component Value Ref Range Glucose, POC 131 (H) 70 - 100 MG/DL Specimen Performing Laboratory MAIN LAB [address] [place] [address] * POC GLUCOSE (12/07/2017 9:16 PM) Component Value Ref Range Glucose, POC 202 (H) 70 - 100 MG/DL Specimen Performing Laboratory MAIN LAB [address] [place] [address] * POC GLUCOSE (12/07/2017 5:41 PM) Component Value Ref Range Glucose, POC 171 (H) 70 - 100 MG/DL Specimen Performing Laboratory MAIN LAB [address] [place] [address] * POC GLUCOSE (12/07/2017 11:35 AM) Component Value Ref Range Glucose, POC 328 (H) 70 - 100 MG/DL Specimen Performing Laboratory MAIN LAB [address] [place] [address]9948 * POC GLUCOSE (12/07/2017 7:18 AM) Component Value Ref Range Glucose, POC 134 (H) 70 - 100 MG/DL Specimen Performing Laboratory MAIN LAB [address] [place] [address] * MAGNESIUM (12/07/2017 4:23 AM) Component Value Ref Range Magnesium 2.0 1.6 - 2.6 mg/dL Specimen Performing Laboratory Blood MAIN LAB [address] [place] [address] * CBC (12/07/2017 4:23 AM) Component Value [...] FL Specimen Performing Laboratory Blood MAIN LAB [address] [place] [address] * BASIC METABOLIC PANEL (12/07/2017 4:23 AM) [...] Specimen Performing Laboratory Blood [facility] MAIN LAB [address] [place] [address] * POC GLUCOSE (12/07/2017 3:28 AM) Component Value Ref Range Glucose, POC 119 (H) 70 - 100 MG/DL Specimen Performing Laboratory [facility] [address] [place] [address] * POC GLUCOSE (12/06/2017 8:49 PM) Component Value Ref Range Glucose, POC 215 (H) 70 - 100 MG/DL Specimen Performing Laboratory [facility] LAB [address] [place] [address]31 * POC GLUCOSE (12/06/2017 5:38 PM) Component Value Ref Range Glucose, POC 147 (H) 70 - 100 MG/DL Specimen Performing Laboratory [address] [address] * POC GLUCOSE (12/06/2017 11:29 AM) Component Value Ref Range Glucose, POC 137 (H) 70 - 100 MG/DL Specimen Performing Laboratory [address] [address] * POC GLUCOSE (12/06/2017 7:47 AM) Component Value Ref Range Glucose, POC 133 (H) 70 - 100 MG/DL Specimen Performing Laboratory [facility] LAB [address] [place] [address] * MAGNESIUM (12/06/2017 4:46 AM) Component Value Ref Range Magnesium 2.4 1.6 - 2.6 mg/dL Specimen Performing Laboratory Blood [address] [address] * CBC (12/06/2017 4:46 AM) Component Value [...] - 11 FL Specimen Performing Laboratory Blood [facility] [address] [place], [place] [id number] * BASIC METABOLIC PANEL (12/06/2017 4:46 AM) [...] Pharmacist for questions. Specimen Performing Laboratory Blood [facility] LAB [address] [place], [place] [id number] * POC GLUCOSE (12/05/2017 9:04 PM) Component Value Ref Range Glucose, POC 142 (H) 70 - 100 MG/DL Specimen Performing Laboratory MAIN LAB [address] [place] [address] * POC GLUCOSE (12/05/2017 4:57 PM) Component Value Ref Range Glucose, POC 158 (H) 70 - 100 MG/DL Specimen Performing Laboratory [facility] [address] [place] [address] * POC GLUCOSE (12/05/2017 11:36 AM) Component Value Ref Range Glucose, POC 211 (H) 70 - 100 MG/DL Specimen Performing Laboratory MAIN LAB [address] [place] [address] * POC GLUCOSE (12/05/2017 7:16 AM) Component Value Ref Range Glucose, POC 210 (H) 70 - 100 MG/DL Specimen Performing Laboratory MAIN LAB [address] [place] [address] * CHEST SINGLE VIEW (12/05/2017 7:03 AM) [...] 100 MG/DL Specimen Performing Laboratory MAIN LAB [address] [place] [address] * MAGNESIUM (12/05/2017 3:43 AM) Component Value Ref Range Magnesium 2.7 (H) 1.6 - 2.6 mg/dL Specimen Performing Laboratory Blood MAIN LAB [address] [place] [address] * CBC (12/05/2017 3:43 AM) Component Value [...] Specimen Performing Laboratory Blood MAIN LAB [address] [place] [address] * BASIC METABOLIC PANEL (12/05/2017 3:43 AM) [...] questions. Specimen Performing Laboratory Blood MAIN LAB [address] [place] [address] * POC GLUCOSE (12/04/2017 9:14 PM) Component Value Ref Range Glucose, POC 172 (H) 70 - 100 MG/DL Specimen Performing Laboratory MAIN LAB [address] [place], [place] [phone] * POC GLUCOSE (12/04/2017 5:29 PM) Component Value Ref Range Glucose, POC 234 (H) 70 - 100 MG/DL Specimen Performing Laboratory MAIN LAB [address] [place], [place] [phone] * POC GLUCOSE (12/04/2017 11:28 AM) Component Value Ref Range Glucose, POC 228 (H) 70 - 100 MG/DL Specimen Performing Laboratory MAIN LAB [address] [place], [place] [id number] * POC GLUCOSE (12/04/2017 7:53 AM) Component Value Ref Range Glucose, POC 177 (H) 70 - 100 MG/DL Specimen Performing Laboratory MAIN LAB [address] [place], [place] [id number] * CHEST SINGLE VIEW (12/04/2017 6:37 AM) [...] Performing Laboratory Blood [facility] MAIN LAB [address] [place] [address] * CBC (12/04/2017 3:53 AM) Component Value [...] - 11 FL Specimen Performing Laboratory Blood [facility] [address] [place] [address] * BASIC METABOLIC PANEL (12/04/2017 3:53 AM) [...] Pharmacist for questions. Specimen Performing Laboratory Blood [facility] [address] [place] [address] 98185 * POC GLUCOSE (12/04/2017 12:06 AM) Component Value Ref Range Glucose, POC 112 (H) 70 - 100 MG/DL Specimen Performing Laboratory MAIN LAB [address] [place] [address] 113[address] * POC GLUCOSE (12/03/2017 10:29 PM) Component Value Ref Range Glucose, POC 104 (H) 70 - 100 MG/DL Specimen Performing Laboratory MAIN LAB [address] [place] [address] * POC GLUCOSE (12/03/2017 9:55 PM) Component Value Ref Range Glucose, POC 100 70 - 100 MG/DL Specimen Performing Laboratory [facility] [address] [place] [address] 49377 * POC GLUCOSE (12/03/2017 8:54 PM) Component Value Ref Range Glucose, POC 142 (H) 70 - 100 MG/DL Specimen Performing Laboratory MAIN LAB [address] [place] [address] 28399 * POC GLUCOSE (12/03/2017 7:47 PM) Component Value Ref Range Glucose, POC 228 (H) 70 - 100 MG/DL Specimen Performing Laboratory [facility] [address] [place] [address] 65[address] * POC GLUCOSE (12/03/2017 6:55 PM) Component Value Ref Range Glucose, POC 247 (H) 70 - 100 MG/DL Specimen Performing Laboratory [facility] [address] [place] [address] 69148 * POC GLUCOSE (12/03/2017 5:45 PM) Component Value Ref Range Glucose, POC 233 (H) 70 - 100 MG/DL Specimen Performing Laboratory [facility] [address] [place] [address] 28335 * POC GLUCOSE (12/03/2017 4:54 PM) Component Value Ref Range Glucose, POC 252 (H) 70 - 100 MG/DL Specimen Performing Laboratory [facility] [address] [place] [address] 54911 * POC GLUCOSE (12/03/2017 3:36 PM) Component Value Ref Range Glucose, POC 278 (H) 70 - 100 MG/DL Specimen Performing Laboratory [facility] [address] [place] [address] 32206 * POC GLUCOSE (12/03/2017 2:36 PM) Component Value Ref Range Glucose, POC 285 (H) 70 - 100 MG/DL Specimen Performing Laboratory [facility] [address] [place] [address]1990 * POC GLUCOSE (12/03/2017 1:36 PM) Component Value Ref Range Glucose, POC 216 (H) 70 - 100 MG/DL Specimen Performing Laboratory [facility] [address] [place] [address] 0[address]79 * POC GLUCOSE (12/03/2017 12:33 PM) Component Value Ref Range Glucose, POC 159 (H) 70 - 100 MG/DL Specimen Performing Laboratory [facility] [address] [place] [address] 16130 * POC GLUCOSE (12/03/2017 11:27 AM) Component Value Ref Range Glucose, POC 214 (H) 70 - 100 MG/DL Specimen Performing Laboratory [facility] [address] [place] [address]115 * CHEST SINGLE VIEW (12/03/2017 11:01 AM) [...] pleural effusion and mild bibasilar atelectasis. The [place] catheter and thoracostomy tubes have been removed. [...] pleural effusion and mild bibasilar atelectasis. The [place] catheter and thoracostomy tubes have been removed. [...] 100 MG/DL Specimen Performing Laboratory MAIN LAB [address] [place] [address] * POC GLUCOSE (12/03/2017 9:14 AM) Component Value Ref Range Glucose, POC 182 (H) 70 - 100 MG/DL Specimen Performing Laboratory MAIN LAB [address] [place] [address] 99691 * POC GLUCOSE (12/03/2017 7:56 AM) Component Value Ref Range Glucose, POC 111 (H) 70 - 100 MG/DL Specimen Performing Laboratory MAIN LAB [address] [place] [address] 27788 * POC GLUCOSE (12/03/2017 7:02 AM) Component Value Ref Range Glucose, POC 121 (H) 70 - 100 MG/DL Specimen Performing Laboratory [facility] MAIN LAB [address] [place] [address] * POC GLUCOSE (12/03/2017 6:06 AM) Component Value Ref Range Glucose, POC 117 (H) 70 - 100 MG/DL Specimen Performing Laboratory MAIN LAB [address] [place] [address] * POC GLUCOSE (12/03/2017 4:57 AM) Component Value Ref Range Glucose, POC 109 (H) 70 - 100 MG/DL Specimen Performing Laboratory MAIN LAB [address] [place] [address] * CHEST SINGLE VIEW (12/03/2017 4:36 AM) [...] 12/02/2017 Findings: There is a right IJ [place] catheter, mediastinal drain, and 2 left thoracostomy tubes in place. There is a metallic stent projecting over the left ventricle. Right IJ [place] catheter is in similar position. Removal of endotracheal and orogastric tubes. Cardiac silhouette is stable. Previous median sternotomy and CABG. There is limited depth of inspiration. Small left pleural effusion. No pneumothorax. Procedure Note Interface, Radiant Results - 12/03/2017 1:08 PM CDT CHEST SINGLE VIEW Clinical Indication: Female, 62 years old. Atelectasis Comparison: Chest radiograph dated 12/02/2017 Findings: There is a right IJ [place] catheter, mediastinal drain, and 2 left thoracostomy tubes in place. There is a metallic stent projecting over the left ventricle. Right IJ [place] catheter is in similar position. Removal of [...] Specimen Performing Laboratory Blood MAIN LAB [address] [place] [address] * BASIC METABOLIC PANEL (12/03/2017 4:04 AM) [...] Specimen Performing Laboratory Blood MAIN LAB [address] [place] [address] * CBC (12/03/2017 4:04 AM) Component Value [...] FL Specimen Performing Laboratory Blood MAIN LAB [address] [place], [place] [id number] * O2 SATURATION, MIXED VENOUS (12/03/2017 4:00 AM) Component Value Ref Range T8Ttg-Qzehs Venous 61.3 % Specimen Performing Laboratory Blood [facility] [address] [place] [address]226 * POC GLUCOSE (12/03/2017 3:53 AM) Component Value Ref Range Glucose, POC 117 (H) 70 - 100 MG/DL Specimen Performing Laboratory [facility] [address] [place], [place] [id number] * POC GLUCOSE (12/03/2017 2:03 AM) Component Value Ref Range Glucose, POC 131 (H) 70 - 100 MG/DL Specimen Performing Laboratory [facility] [address] [place] [address] * BLOOD GASES, ARTERIAL (12/03/2017 2:00 AM) Component Value Ref Range pH-Arterial 7.36 7.35 - 7.45 pCO2-Arterial 39 35 - 45 MMHG pO2-Arterial 137 (H) 80 - 100 MMHG Base Deficit-Arterial 3.1 MMOL/L O2 Sat-Arterial 98.7 95 - 99 % Nneqpefbqmo-TJK-Ewq 21.8 21 - 28 MMOL/L Specimen Performing Laboratory Blood, arterial - Blood [facility] [address] [place], [place] [id number] * POTASSIUM (12/03/2017 2:00 AM) Component Value Ref Range Potassium 4.0 3.5 - 5.1 MMOL/L Specimen Performing Laboratory Blood [facility] [address] [place], [place] [id number] * POC IONIZED CALCIUM (12/03/2017 12:52 AM) Component Value Ref Range Ionized Calcium-POC 1.16 1.0 - 1.3 MMOL/L Specimen Performing Laboratory [facility] [address] [place], [place] [phone] * POC SODIUM (12/03/2017 12:52 AM) Component Value Ref Range Sodium-POC 145 137 - 147 MMOL/L Specimen Performing Laboratory MAIN LAB [address] [place] [address] 22736 * POC POTASSIUM (12/03/2017 12:52 AM) Component Value Ref Range Potassium-POC 4.0 3.5 - 5.1 MMOL/L Specimen Performing Laboratory MAIN LAB [address] [place] [address] 26641 * POC HEMATOCRIT (12/03/2017 12:52 AM) Component Value Ref Range Hemoglobin POC 8.5 (L) 12.0 - 15.0 GM/DL Hematocrit POC 25.0 (L) 36 - 45 % Specimen Performing Laboratory MAIN LAB [address] [place] [address]6046 * POC BLOOD GAS ARTERIAL (12/03/2017 12:52 AM) Component Value Ref Range PH-ART-POC 7.39 7.35 - 7.45 KAE7-KAP-NKL 37 35 - 45 MMHG PO2-ART-POC 150 (H) 80 - 100 MMHG Base Def-ART-POC 3.0 MMOL/L O2 Sat-ART-POC 99.0 95 - 99 % Rldzsslrcwo-QIN-TIW 22.2 21 - 28 MMOL/L Specimen Performing Laboratory MAIN LAB [address] [place] [address] 03906 * POC GLUCOSE (12/03/2017 12:16 AM) Component Value Ref Range Glucose, POC 130 (H) 70 - 100 MG/DL Specimen Performing Laboratory MAIN LAB [address] [place] [address] * O2 SATURATION, MIXED VENOUS (12/02/2017 10:45 PM) Component Value Ref Range E4Trt-Xvupo Venous 62.9 % Specimen Performing Laboratory Blood [facility] [address] [place] [address] 22694 * POC IONIZED CALCIUM (12/02/2017 10:42 PM) Component Value Ref Range Ionized Calcium-POC 1.09 1.0 - 1.3 MMOL/L Specimen Performing Laboratory MAIN LAB [address] [place] [address] 48020 * POC SODIUM (12/02/2017 10:42 PM) Component Value Ref Range Sodium-POC 143 137 - 147 MMOL/L Specimen Performing Laboratory MAIN LAB [address] [place] [address] 33703 * POC POTASSIUM (12/02/2017 10:42 PM) Component Value Ref Range Potassium-POC 3.8 3.5 - 5.1 MMOL/L Specimen Performing Laboratory [facility] [address] [place] [address] 6[address]39 * POC HEMATOCRIT (12/02/2017 10:42 PM) Component Value Ref Range Hemoglobin POC 7.8 (L) 12.0 - 15.0 GM/DL Hematocrit POC 23.0 (L) 36 - 45 % Specimen Performing Laboratory [facility] [address] [place] [address] 96184 * POC BLOOD GAS ARTERIAL (12/02/2017 10:42 PM) Component Value Ref Range PH-ART-POC 7.51 (H) 7.35 - 7.45 DLH1-GGE-IQR 27 (L) 35 - 45 MMHG PO2-ART-POC 171 (H) 80 - 100 MMHG Base Def-ART-POC 1.0 MMOL/L O2 Sat-ART-POC 100.0 (H) 95 - 99 % Rrnwlkvnniw-MLX-EJI 21.5 21 - 28 MMOL/L Specimen Performing Laboratory [facility] [address] [place] [address] 71816 * POC GLUCOSE (12/02/2017 10:09 PM) Component Value Ref Range Glucose, POC 133 (H) 70 - 100 MG/DL Specimen Performing Laboratory [facility] [address] [place] [address] 04181 * POTASSIUM (12/02/2017 9:00 PM) Component Value Ref Range Potassium 3.8 3.5 - 5.1 MMOL/L Specimen Performing Laboratory Blood [facility] [address] [place] [address] 60267 * MAGNESIUM (12/02/2017 9:00 PM) Component Value Ref Range Magnesium 3.8 (H) 1.6 - 2.6 mg/dL Specimen Performing Laboratory Blood [facility] [address] [place] [address] 64453 * POC GLUCOSE (12/02/2017 8:58 PM) Component Value Ref Range Glucose, POC 137 (H) 70 - 100 MG/DL Specimen Performing Laboratory [facility] [address] [place] [address] 74094 * POC GLUCOSE (12/02/2017 8:07 PM) Component Value Ref Range Glucose, POC 154 (H) 70 - 100 MG/DL Specimen Performing Laboratory [facility] [address] [place] [address] 01218 * POC GLUCOSE (12/02/2017 7:03 PM) Component Value Ref Range Glucose, POC 157 (H) 70 - 100 MG/DL Specimen Performing Laboratory [facility] [address] [place] [address] 78860 * POC GLUCOSE (12/02/2017 6:17 PM) Component Value Ref Range Glucose, POC 169 (H) 70 - 100 MG/DL Specimen Performing Laboratory [facility] [address] [place] [address] 24482 * POC GLUCOSE (12/02/2017 5:02 PM) Component Value Ref Range Glucose, POC 165 (H) 70 - 100 MG/DL Specimen Performing Laboratory [facility] [address] [place] [address] 27558 * POC BLOOD GAS ARTERIAL (12/02/2017 5:01 PM) Component Value Ref Range PH-ART-POC 7.44 7.35 - 7.45 THU7-RXC-XQC 32 (L) 35 - 45 MMHG PO2-ART-POC 81 80 - 100 MMHG Base Def-ART-POC 3.0 MMOL/L O2 Sat-ART-POC 96.0 95 - 99 % Xbludtvtgmt-TOZ-JQC 21.7 21 - 28 MMOL/L Specimen Performing Laboratory [facility] [address] [place] [address] 91295 * POC GLUCOSE (12/02/2017 4:35 PM) Component Value Ref Range Glucose, POC 155 (H) 70 - 100 MG/DL Specimen Performing Laboratory [facility] [address] [place] [address] 49944 * POC IONIZED CALCIUM (12/02/2017 4:32 PM) Component Value Ref Range Ionized Calcium-POC 1.15 1.0 - 1.3 MMOL/L Specimen Performing Laboratory [facility] [address] [place] [address] 36410 * POC SODIUM (12/02/2017 4:32 PM) Component Value Ref Range Sodium-POC 143 137 - 147 MMOL/L Specimen Performing Laboratory [facility] [address] [place] [address] 76461 * POC POTASSIUM (12/02/2017 4:32 PM) Component Value Ref Range Potassium-POC 3.7 3.5 - 5.1 MMOL/L Specimen Performing Laboratory [facility] [address] [place] [address] 37333 * POC HEMATOCRIT (12/02/2017 4:32 PM) Component Value Ref Range Hemoglobin POC 7.5 (L) 12.0 - 15.0 GM/DL Hematocrit POC 22.0 (L) 36 - 45 % Specimen Performing Laboratory MAIN LAB [address] [place], [place] [id number] * POC BLOOD GAS ARTERIAL (12/02/2017 4:32 PM) Component Value Ref Range PH-ART-POC 7.49 (H) 7.35 - 7.45 GTE0-NQZ-AWU 33 (L) 35 - 45 MMHG PO2-ART-POC 299 (H) 80 - 100 MMHG Base Ex-ART-POC 2.0 MMOL/L O2 Sat-ART-POC 100.0 (H) 95 - 99 % Flqyxqyaxrl-RCO-MLP 25.0 21 - 28 MMOL/L Specimen Performing Laboratory MAIN LAB [address] [place] [address] * MAGNESIUM (12/02/2017 4:30 PM) Component Value Ref Range Magnesium 3.1 (H) 1.6 - 2.6 mg/dL Specimen Performing Laboratory Blood MAIN LAB [address] [place], [place] [id number] * PTT (APTT) (12/02/2017 4:30 PM) Component Value Ref Range APTT 29.3 21.0 - 39.0 SEC Specimen Performing Laboratory Blood MAIN LAB [address] [place], [place] [id number] * PROTIME INR (PT) (12/02/2017 4:30 PM) Component Value Ref Range INR 1.1 0.8 - 1.2 Specimen Performing Laboratory Blood MAIN LAB [address] [place] [address] * BASIC METABOLIC PANEL (12/02/2017 4:30 PM) [...] Performing Laboratory [facility] [address] [place] [address] * CBC (12/02/2017 4:30 PM) Component Value [...] Performing Laboratory [facility] [address] [place] [address] * LINE PLCMT 1V CXR (12/02/2017 4:18 [...] mediastinal drain are noted. A right IJ [place] catheter is seen with distal tip overlying [...] mediastinal drain are noted. A right IJ [place] catheter is seen with distal tip overlying [...] 1.3 MMOL/L Specimen Performing Laboratory MAIN LAB [address] [place] [address] * POC SODIUM (12/02/2017 3:06 PM) Component Value Ref Range Sodium-POC 142 137 - 147 MMOL/L Specimen Performing Laboratory MAIN LAB [address] [place] [address] * POC POTASSIUM (12/02/2017 3:06 PM) Component Value Ref Range Potassium-POC 4.2 3.5 - 5.1 MMOL/L Specimen Performing Laboratory MAIN LAB [address] [place] [address] * POC HEMATOCRIT (12/02/2017 3:06 PM) Component Value Ref Range Hemoglobin POC 8.5 (L) 12.0 - 15.0 GM/DL Hematocrit POC 25.0 (L) 36 - 45 % Specimen Performing Laboratory MAIN LAB [address] [place] [address] * POC BLOOD GAS ARTERIAL (12/02/2017 3:06 PM) Component Value Ref Range PH-ART-POC 7.51 (H) 7.35 - 7.45 [id number]-[id number] 34 (L) 35 - 45 MMHG PO2-ART-POC 439 (H) 80 - 100 MMHG Base Ex-ART-POC 4.0 MMOL/L O2 Sat-ART-POC 100.0 (H) 95 - 99 % Hpfvtyviput-CSI-WHQ 27.3 21 - 28 MMOL/L Specimen Performing Laboratory MAIN LAB [address] [place] [address] * POC GLUCOSE (12/02/2017 3:04 PM) Component Value Ref Range Glucose, POC 132 (H) 70 - 100 MG/DL Specimen Performing Laboratory [facility] [address] [place] [address] * POC IONIZED CALCIUM (12/02/2017 2:22 PM) Component Value Ref Range Ionized Calcium-POC 1.03 1.0 - 1.3 MMOL/L Specimen Performing Laboratory MAIN LAB [address] [place] [address] * POC SODIUM (12/02/2017 2:22 PM) Component Value Ref Range Sodium-POC 141 137 - 147 MMOL/L Specimen Performing Laboratory [facility] [address] [place] [address] * POC POTASSIUM (12/02/2017 2:22 PM) Component Value Ref Range Potassium-POC 5.2 (H) 3.5 - 5.1 MMOL/L Specimen Performing Laboratory [facility] [address] [place] [address] * POC HEMATOCRIT (12/02/2017 2:22 PM) Component Value Ref Range Hemoglobin POC 8.2 (L) 12.0 - 15.0 GM/DL Hematocrit POC 24.0 (L) 36 - 45 % Specimen Performing Laboratory [facility] [address] [place] [address] * POC BLOOD GAS ARTERIAL (12/02/2017 2:22 PM) Component Value Ref Range PH-ART-POC 7.46 (H) 7.35 - 7.45 VRA3-ZXO-ZJM 40 35 - 45 MMHG PO2-ART-POC 566 (H) 80 - 100 MMHG Base Ex-ART-POC 5.0 MMOL/L O2 Sat-ART-POC 100.0 (H) 95 - 99 % Uesqasufhyy-MYX-SEC 28.6 (H) 21 - 28 MMOL/L Specimen Performing Laboratory [facility] [address] [place] [address] * POC GLUCOSE (12/02/2017 2:20 PM) Component Value Ref Range Glucose, POC 116 (H) 70 - 100 MG/DL Specimen Performing Laboratory MAIN LAB [address] [place] [address] * POC IONIZED CALCIUM (12/02/2017 1:52 PM) Component Value Ref Range Ionized Calcium-POC 0.95 (L) 1.0 - 1.3 MMOL/L Specimen Performing Laboratory [facility] [address] [place], [place] [id number] * POC SODIUM (12/02/2017 1:52 PM) Component Value Ref Range Sodium-POC 141 137 - 147 MMOL/L Specimen Performing Laboratory [facility] [address] [place] [address] * POC POTASSIUM (12/02/2017 1:52 PM) Component Value Ref Range Potassium-POC 5.9 (H) 3.5 - 5.1 MMOL/L Specimen Performing Laboratory [facility] [address] [place] [address] * POC HEMATOCRIT (12/02/2017 1:52 PM) Component Value Ref Range Hemoglobin POC 7.5 (L) 12.0 - 15.0 GM/DL Hematocrit POC 22.0 (L) 36 - 45 % Specimen Performing Laboratory [facility] [address] [place] [address] * POC BLOOD GAS ARTERIAL (12/02/2017 1:52 PM) Component Value Ref Range PH-ART-POC 7.46 (H) 7.35 - 7.45 OOP8-SEH-CPZ 42 35 - 45 MMHG PO2-ART-POC 581 (H) 80 - 100 MMHG Base Ex-ART-POC 6.0 MMOL/L O2 Sat-ART-POC 100.0 (H) 95 - 99 % Jvfrnruksuu-UXI-PVF 29.4 (H) 21 - 28 MMOL/L Specimen Performing Laboratory [facility] [address] [place] [address] * POC GLUCOSE (12/02/2017 1:49 PM) Component Value Ref Range Glucose, POC 121 (H) 70 - 100 MG/DL Specimen Performing Laboratory MAIN LAB [address] [place] [address] * POC GLUCOSE (12/02/2017 1:30 PM) Component Value Ref Range Glucose, POC 113 (H) 70 - 100 MG/DL Specimen Performing Laboratory [facility] [address] [place] [address] * POC IONIZED CALCIUM (12/02/2017 11:49 AM) Component Value Ref Range Ionized Calcium-POC 1.20 1.0 - 1.3 MMOL/L Specimen Performing Laboratory [facility] [address] [place], [place] [id number] * POC SODIUM (12/02/2017 11:49 AM) Component Value Ref Range Sodium-POC 144 137 - 147 MMOL/L Specimen Performing Laboratory [facility] [address] [place] [address] * POC POTASSIUM (12/02/2017 11:49 AM) Component Value Ref Range Potassium-POC 3.5 3.5 - 5.1 MMOL/L Specimen Performing Laboratory [facility] [address] [place], [place] [id number] * POC HEMATOCRIT (12/02/2017 11:49 AM) Component Value Ref Range Hemoglobin POC 10.9 (L) 12.0 - 15.0 GM/DL Hematocrit POC 32.0 (L) 36 - 45 % Specimen Performing Laboratory [facility] [address] [place] [address] * POC BLOOD GAS ARTERIAL (12/02/2017 11:49 AM) Component Value Ref Range PH-ART-POC 7.39 7.35 - 7.45 OVA4-YAD-BTE 43 35 - 45 MMHG PO2-ART-POC 259 (H) 80 - 100 MMHG Base Ex-ART-POC 1.0 MMOL/L O2 Sat-ART-POC 100.0 (H) 95 - 99 % Ayoqxrfhlwq-POG-YAC 25.8 21 - 28 MMOL/L Specimen Performing Laboratory [facility] [address] [place], [place] [id number] * POC IONIZED CALCIUM (12/02/2017 11:37 AM) Component Value Ref Range Ionized Calcium-POC 1.22 1.0 - 1.3 MMOL/L Specimen Performing Laboratory [facility] [address] [place], [place] [id number] * POC SODIUM (12/02/2017 11:37 AM) Component Value Ref Range Sodium-POC 144 137 - 147 MMOL/L Specimen Performing Laboratory MAIN LAB [address] [place] [address] * POC POTASSIUM (12/02/2017 11:37 AM) Component Value Ref Range Potassium-POC 3.6 3.5 - 5.1 MMOL/L Specimen Performing Laboratory MAIN LAB [address] [place] [address] * POC HEMATOCRIT (12/02/2017 11:37 AM) Component Value Ref Range Hemoglobin POC 11.6 (L) 12.0 - 15.0 GM/DL Hematocrit POC 34.0 (L) 36 - 45 % Specimen Performing Laboratory MAIN LAB [address] [place] [address] * POC BLOOD GAS ARTERIAL (12/02/2017 11:37 AM) Component Value Ref Range PH-ART-POC 7.35 7.35 - 7.45 JXR3-OLG-NPY 47 (H) 35 - 45 MMHG PO2-ART-POC 311 (H) 80 - 100 MMHG Base Ex-ART-POC 0.0 MMOL/L O2 Sat-ART-POC 100.0 (H) 95 - 99 % Jdnqhztzexa-TWH-BOQ 25.8 21 - 28 MMOL/L Specimen Performing Laboratory MAIN LAB [address] [place] [address] * POC GLUCOSE (12/02/2017 11:35 AM) Component Value Ref Range Glucose, POC 99 70 - 100 MG/DL Specimen Performing Laboratory MAIN LAB [address] [place] [address] * POC GLUCOSE (12/02/2017 8:22 AM) Component Value Ref Range Glucose, POC 102 (H) 70 - 100 MG/DL Specimen Performing Laboratory MAIN LAB [address] [place] [address] in this encounter Visit Diagnoses Diagnosis Coronary [...]
--- OUTSIDE RECORDS SUMMARY | 2017-12-09 03:02 | XMS REPORT | Encounter Summary ---
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 Name Role Phone Deann Parker MD PCP Encounter Details Date Type Department Care Team Description 11/26/2017 Pre-Admit Preoperative Assessment Kenny Enrique MD Coronary artery disease Orders Only Clinic [address] involving [place] [facility], [address] [place] [address] [place] [address] unspecified, unspecified [phone] vessel or lesion type (Primary Dx) Social [...] Specimen Performing Laboratory Blood MAIN LAB [address] [place] [address] * CBC (12/01/2017 1:43 PM) Component Value [...] Specimen Performing Laboratory Blood MAIN LAB [address] [place] [address] * TYPE & CROSSMATCH (12/01/2017 11:55 AM) Component Value Ref Range Units Ordered 0 Crossmatch Expires 12/04/2017 Record Check FOUND ABO/RH(D) A POS Antibody Screen NEG Electronic Crossmatch YES Specimen Performing Laboratory Blood MAIN LAB [address] [place] [address] in this encounter Visit Diagnoses Diagnosis Coronary artery disease involving [place] [facility], angina presence unspecified, unspecified vessel or lesion type - Primary
--- OUTSIDE RECORDS SUMMARY | 2017-12-09 03:02 | XMS REPORT | Encounter Summary ---
Author [facility] Address Unknown Phone Unavailable Care Team Providers Care Plasma Processing Technician Name Role Phone Ashley Banegas MD PCP Reason for Visit * Auth/Cert (Routine) Status Reason Specialty Diagnoses / Referred By Referred To Procedures Contact Contact Encounter Details Date Type Department Care Team Description 11/23/2017 Hospital Cardiothor Prgrsv cr Arnulfo Cortes MD Coronary artery disease - Encounter [address] involving [place] coronary 11/25/2017 [place] [address] [place] [address] artery of [place] heart [phone] [place] [address] with unstable angina [phone] pectoris (HCC) Social History Tobacco Use Types [...] nonobstructive disease bilaterally. Coronary artery disease involving [place] coronary artery of [place] heart with unstable angina pectoris ([facility]) 11/17/2017 03/04/17 - LHC: Total occlusion of [...] hyperlipidemia 11/17/2017 PAD (peripheral artery disease) ([facility]) 11/17/2017 Type 2 diabetes mellitus with complication, with long-term current use of insulin ([facility]) 11/17/2017 Allergies: Fish containing products; Ketoprofen; and [...] extraction on 11/11 and recent insulin adjustment. 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 The family life educator also met with the patient and [...] 97-144. She will resume Metformin at the ORDERING MACHINE OPERATOR dose, only when she is eating [...] She has been on Lasix 40mg daily ORDERING MACHINE OPERATOR but was instructed to stop this [...] Active Problems * (Principal)Coronary artery disease involving [place] coronary artery of [place] heart with unstable angina pectoris (HCC) Essential [...] There was some faint left-to- left and rnija-mt-tipv collateralization of the apical segment of the [...] second obtuse marginal branch. There was some ybrs-dl-rraxp collateralization of the posterolateral segment. 5. The [place] right coronary was visualized with a JR4 [...] HOURS (8:00 AM - 4:30 PM): Call [phone] and asked to be transferred to your discharge attending physician. - AFTER BUSINESS HOURS (4:30 PM - 8:00 AM, on weekends, or holidays): Call [phone] and ask the towel rolling machine operator to page the on-call doctor for the discharge attending physician. Discharging attending physician: ARNULFO CORTES [[id number]] Cardiac Diet Limiting unhealthy fats and cholesterol [...] home, you can call a dietitian at [phone]. Incision Care *Call if there is an increase in pain, swelling, or redness in your right groin or your gums. Take Tylenol for pain. *DO NOT soak groin incision in water. *NO tub baths, hot tubs, or swimming. *You may shower after discharge. [facility] is a gathering place for individuals, [...] please call . You can also visit [email or web address] for more information. Current Discharge Medication List START taking these medications Details spironolactone (ALDACTONE) 25 mg tablet Take 0.5 tablets by mouth daily. Take with food. Qty: 15 tablet, Refills: 5 PRESCRIPTION TYPE: Normal Associated Diagnoses: Coronary artery disease involving [place] coronary artery of [place] heart with unstable angina pectoris (HCC) CONTINUE these medications which have been CHANGED or REFILLED Details !! insulin aspart U-100 (NOVOLOG FLEXPEN) 100 unit/mL injection PEN Inject 10 Units under the skin three times daily with meals. Qty: 45 mL, Refills: 3 PRESCRIPTION TYPE: No Print Associated Diagnoses: Coronary artery disease involving [place] coronary artery of [place] heart with unstable angina pectoris (HCC) !! insulin aspart U-100 (NOVOLOG FLEXPEN) 100 unit/mL injection PEN Inject 0-14 Units under the skin three times daily with meals. Qty: 45 mL, Refills: 3 PRESCRIPTION TYPE: Normal Associated Diagnoses: Coronary artery disease involving [place] coronary artery of [place] heart with unstable angina pectoris (HCC) insulin detemir(+) (LEVEMIR) 100 unit/mL soln Inject 35 Units under the skin at bedtime daily. Qty: 10 mL, Refills: 12 PRESCRIPTION TYPE: No Print Associated Diagnoses: Coronary artery disease involving [place] coronary artery of [place] heart with unstable angina pectoris (HCC) !! [...] 2017 2:00 PM CDT Pre-Op Nurse with [facility] ([facility]) [address] [facility] [address] December 01, 2017 2:30 PM CDT PAC Office Visit with PAC ROOM 6 Preoperative Assessment Clinic (--) [address] [facility] [address] Pending items needing follow up: as above [...] minutes Novolog is in the [place] pen. If your pre meal Blood sugar [...] artery disease involving three times daily with [place] coronary artery of meals. Plus 0-14 units [place] heart with on sliding scale. unstable angina pectoris (HCC) insulin detemir(+) Inject 26 Units under the 10 mL 12 12/08/2017 (LEVEMIR) 100 unit/mL skin at bedtime daily. solnIndications: Coronary artery disease involving [place] coronary artery of [place] heart with unstable angina pectoris (HCC) lisinopril [...] with food. tabletIndications: Coronary artery disease involving [place] coronary artery of [place] heart with unstable angina pectoris (HCC) traMADol (ULTRAM) 50 mg Take 50 mg by mouth every tablet 6 hours as needed for Pain. amLODIPine (NORVASC) 10 Take 10 mg by mouth 12/08/2017 mg tablet daily. insulin aspart U-100 Inject 10 Units under the 45 mL 3 11/25/2017 (NOVOLOG FLEXPEN) 100 skin three times daily unit/mL injection with meals. PENIndications: Coronary artery disease involving [place] coronary artery of [place] heart with unstable angina pectoris (HCC) insulin aspart U-100 Inject 0-14 Units under 45 mL 3 11/25/2017 (NOVOLOG FLEXPEN) 100 the skin three times unit/mL injection daily with meals. PENIndications: Coronary artery disease involving [place] coronary artery of [place] heart with unstable angina pectoris (HCC) insulin detemir(+) Inject 35 Units under the 10 mL 12 11/25/2017 (LEVEMIR) 100 unit/mL skin at bedtime daily. solnIndications: Coronary artery disease involving [place] coronary artery of [place] heart with unstable angina pectoris (HCC) isosorbide [...] obtained and signed. H&P recently updated. Dena aGyle DDS, PhD Pager [phone] * Jennifer Elkins, PORTIA - 11/24/2017 12:04 [...] and provide further information. Italo Russo PA-C [phone] Associated attestation - Kenny Enrique MD - [...] Warren RN - 11/24/2017 10:09 AM CDT [id number]: Phone report given to Caroline PEARCE regarding pt to transfer care to [phone]. * Corrie Fuentes PA-C - 11/24/2017 8:21 AM CDT Formatting of this note may be different from the original. 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 Dental Caries -Panorex xray 11/23/17 revealed erosions or caries involving the remaining maxillary teeth, sparing the residual left maxillary molar. Thin rind of lucency surrounding the right mandibular canine tooth, likely due to periodontal disease/gingivitis. Hypertension -BPs reasonably controlled -ORDERING MACHINE OPERATOR on Lisinopril 20mg daily, Toprol 100mg daily, Imdur 30mg daily Hyperlipidemia -ORDERING MACHINE OPERATOR on Atorvastatin 40mg daily and reportedly [...] CDT Pt off floor for testing from [id number] * Italo Russo PA-C - 11/23/2017 11:58 [...] referred to Dr. Cortes from her home fitter / welder to attempt PCI of her known MANAGER FLEET LAD lesion. Dr. Cortes consulted CTS for evaluation for surgical revascularization after [facility] today revealed severe, multivessel CAD in [...] 3.351% CATH FINDINGS: Coronary Stenosis LAD--> MANAGER FLEET Diag--> 80% proximal OM --> 70% ostial, 90% mid RCA--> 95% distal PMH: Past Medical History: Diagnosis Date Bilateral carotid artery disease ([facility]) 11/17/2017 05/04/17 - Carotid U/S: mild 1-39% stenosis, nonobstructive disease bilaterally. Coronary artery disease involving [place] coronary artery of [place] heart with unstable angina pectoris ([facility]) 11/17/2017 03/04/17 - [facility]: Total occlusion of the mid LAD, [...] hyperlipidemia 11/17/2017 PAD (peripheral artery disease) ([facility]) 11/17/2017 Type 2 diabetes mellitus with complication, with long-term current use of insulin ([facility]) 11/17/2017 PSH: Past Surgical History: Procedure Laterality [...] Hospital Problems Diagnosis Coronary artery disease involving [place] coronary artery of [place] heart with unstable angina pectoris (HCC) 03/05/17 - [facility]: Total occlusion of the mid LAD, balloon angioplasty using 2 different sized balloons. No reestablishment of flow. Appears the artery is diffusely diseased & occluded. Proximal portion has severe disease - balloon angioplasty with slight improvement. Severe disease at mid and distal circumflex - fairly small artery. Patent stent in large dominant RCA. Normal LV , EF 60%, normal LVEDP. 06/16/16 - [facility]: Severe in-stent restenosis in prox and [...] circumflex, fairly small artery. Normal LVEDP. 06/2015 [facility]: 2.5 x 18 mm Resolute Integrity stent to mid circumflex, prox lesion is 40% stenosed, distal lesion 80%. Patent multiple stents in prox, mid, and distal LAD w/ mild in-stent restenosis. Patent stent in RCA w/ mild disease in distal RCA. 05/2015 [facility]: 3.5 x 12 mm & 2.75 x 24 mm Promus Premier overlapping stents to mid RCA. Patent stents in the LAD. Severe stenosis at distal LAD, 70% prox circumflex and 70-80% mid to distal circ/OM branch. [facility]: 2.5 x 24 mm and 2.5 x 20 mm Promusto distal and proximal LAD, 50% prox circumflex, 70-80% mid to distal circumflex involving the proximal portion of OM1, 50-60% mid RCA, LV anterior wall hypokinetic. EF 40%. Essential hypertension Mixed hyperlipidemia History of tobacco abuse Type 2 diabetes mellitus with complication, with long-term current use of insulin ([facility]) Plan: Dr. Enrique has reviewed all of [...] of arrival for Thursday. Italo Russo PA-C [phone] Associated attestation - Kenny Enrique MD - [...] from date of service 11/23/2017. ALENA Richards ([id number]) Progress Notes Arnulfo Cortes MD (Physician) Cardiology [...] Diagnosis Date Noted Bilateral carotid artery disease ([facility]) 11/17/2017 05/04/17 - Carotid U/S: mild 1-39% stenosis, nonobstructive disease bilaterally. Coronary artery disease involving [place] coronary artery of [place] heart with unstable angina pectoris ([facility]) 11/17/2017 03/05/17 - [facility]: Total occlusion of the mid LAD, balloon angioplasty using 2 different sized balloons. No reestablishment of flow. Appears the artery is diffusely diseased & occluded. Proximal portion has severe disease - balloon angioplasty with slight improvement. Severe disease at mid and distal circumflex - fairly small artery. Patent stent in large dominant RCA. Normal LV , EF 60%, normal LVEDP. 06/16/16 - [facility]: Severe in-stent restenosis in prox and [...] fairly small artery. Normal LVEDP. 06/2015 - [facility]: 2.5 x 18 mm Resolute Integrity stent to mid circumflex, prox lesion is 40% stenosed, distal lesion 80%. Patent multiple stents in prox, mid, and distal LAD w/ mild in-stent restenosis. Patent stent in RCA w/ mild disease in distal RCA. 05/2015 [facility]: 3.5 x 12 mm & 2.75 x 24 mm Promus Premier overlapping stents to mid RCA. Patent stents in the LAD. Severe stenosis at distal LAD, 70% prox circumflex and 70-80% mid to distal circ/OM branch. [facility]: 2.5 x 24 mm and 2.5 x 20 mm Promusto distal and proximal LAD, 50% prox circumflex, 70-80% mid to distal circumflex involving the proximal portion of OM1, 50-60% mid RCA, LV anterior wall hypokinetic. EF 40%. PAD (peripheral artery disease) ([facility]) 11/17/2017 Essential hypertension 11/17/2017 Mixed hyperlipidemia 11/17/2017 History of tobacco abuse 11/17/2017 Type 2 diabetes mellitus with complication, with long-term current use of insulin ([facility]) 11/17/2017 Past Surgical History: Procedure Laterality Date [...] Diagnoses Name Primary? Coronary artery disease involving [place] coronary artery of [place] heart with unstable angina pectoris (HCC) Yes [...] AM CDT Associated Order(s): CARDIAC CATH REPORT [facility] CARDIAC CATHETERIZATION REPORT Page 2 NIMISHA Condon : 1955 KU#: [id number] MR #/Billing ID #: [id number] / [id number] DATE: 11/23/2017 BANJO REPAIRER: Arnulfo Cortes MD DICTATING PROVIDER: Arnulfo Cortes MD REFERRING PHYSICIAN: ASHLEY BANEGAS PROCEDURES PERFORMED: 1. Left heart catheterization. 2. Selective left and right coronary cineangiograms. PROCEDURE: Ms. Jaramillo is a 62-year-old female who presented with a history of coronary artery disease and recent cardiac catheterization suggesting chronic total occlusion of the mid LAD. On arrival to cytology laboratory manager, she was hemodynamically stable and pain free. Moderate IV conscious sedation was monitored and administered by myself, nursing, and technical staff for a total duration of 30 minutes. The bilateral groins were then prepped and draped in typical fashion. We infiltrated the right groin with approximately 20 mL of 1% lidocaine and advanced a 5-[place] arterial sheath. Selective left and right coronary cineangiograms as well as left heart catheterization were performed utilizing a 5-[place] diagnostic coronary catheter. Intracoronary nitroglycerin was administered [...] There was some faint left-to- left and yqplm-cq-vtbk collateralization of the apical segment of the [...] second obtuse marginal branch. There was some krwf-hq-wzcco collateralization of the posterolateral segment. 5. The [place] right coronary was visualized with a JR4 [...] mid left anterior descending artery with faint fhnz-rf-aiwi collaterals. b. 90% mid second obtuse marginal stenosis with a 70% ostial circumflex stenosis. c. 95% proximal posterior lateral stenosis. PLAN: We will consult Cardiothoracic Surgery for evaluation. MD MG Toth/Hakeem /[id number] cc: - ASHLEY BANEGAS in this encounter [...] this consult Dena Gayle DDS, PHD Pager [phone] * Jennifer Oshea RN - 11/24/2017 1:44 PM CDT Associated Order(s): CONSULT DIABETES NURSE EDUCATOR Formatting of this note may be different from the original. INPATIENT DIABETES EDUCATION TEAM Clinical Excellence Nursing Practice Reason for Consult: Other (Comment) Order comments: Poorly managed diabetes at home. Changing regimen Discussed Consult with Primary Team: Dr. Gutierrez, Lifter Driver, Aneta, bedside RN Patient may benefit from: referral to [facility] for Diabetes Education, Robotic Machine Operator to cover carb controlled/heart healthy diet, and [...] bedside. Educator explained to pt that the Lifter Driver who visited with pt earlier was changing pt's insulin dosing schedule to see if ORDERING MACHINE OPERATOR insulin was really what was needed. [...] minutes Novolog is in the [place] pen. If your pre meal Blood sugar [...] - Diabetes Education Nursing Clinical Excellence [facility] [email or web address] [phone] office [phone] pager * Terrance Mack MD - 11/24/2017 11:12 AM CDT Associated Order(s): CONSULT ENDOCRINOLOGY PHYSICIAN Formatting of this note may be different from the original. 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 We will request family life educator to come and talk to patient [...] nonobstructive disease bilaterally. Coronary artery disease involving [place] coronary artery of [place] heart with unstable angina pectoris ([facility]) 11/17/2017 03/04/17 - [facility]: Total occlusion of the mid LAD, [...] hyperlipidemia 11/17/2017 PAD (peripheral artery disease) ([facility]) 11/17/2017 Type 2 diabetes mellitus with complication, with long-term current use of insulin ([facility]) 11/17/2017 Past Surgical History Past Surgical History: [...] clubbing, cyanosis or edema Skin: no rashes/lesions CAUSTIC PREPARER: Grossly nonfocal Lab Review Point of Care [...] FREET4, FREEINDEX No results found for: FREET3, [id number], THYBINDGLB Eugenia Gutierrez MD Endocrinology Fellow PGY-5 [...] of a resident. Dena Gayle DDS Pager [phone] * Care Plan - Aneta Goodson - [...] 70 - 100 MG/DL Specimen Performing Laboratory [facility] [address] [place] [id number] * BASIC METABOLIC PANEL (11/25/2017 4:07 AM) [...] Pharmacist for questions. Specimen Performing Laboratory Blood [facility] [address] [place] [phone] * POC GLUCOSE (11/24/2017 9:33 PM) Component Value Ref Range Glucose, POC 131 (H) 70 - 100 MG/DL Specimen Performing Laboratory [facility] [address] [place] [phone] * POC GLUCOSE (11/24/2017 6:36 PM) Component Value Ref Range Glucose, POC 97 70 - 100 MG/DL Specimen Performing Laboratory [facility] [address] [place] [phone] * POC GLUCOSE (11/24/2017 5:23 PM) Component Value Ref Range Glucose, POC 105 (H) 70 - 100 MG/DL Specimen Performing Laboratory [facility] [address] [place] [address] * POC GLUCOSE (11/24/2017 5:10 PM) Component Value Ref Range Glucose, POC 119 (H) 70 - 100 MG/DL Specimen Performing Laboratory [facility] [address] [place] [address] * POC GLUCOSE (11/24/2017 12:19 PM) Component Value Ref Range Glucose, POC 318 (H) 70 - 100 MG/DL Specimen Performing Laboratory [facility] [address] [place] [address] * POC GLUCOSE (11/24/2017 10:41 AM) Component Value Ref Range Glucose, POC 333 (H) 70 - 100 MG/DL Specimen Performing Laboratory [facility] [address] [place] [address] * POC GLUCOSE (11/24/2017 7:57 AM) Component Value Ref Range Glucose, POC 222 (H) 70 - 100 MG/DL Specimen Performing Laboratory [facility] [address] [place] [address] * MAGNESIUM (11/24/2017 4:16 AM) Component Value Ref Range Magnesium 1.8 1.6 - 2.6 mg/dL Specimen Performing Laboratory Blood [facility] [address] [place] [address] * CBC (11/24/2017 4:16 AM) Component Value [...] - 11 FL Specimen Performing Laboratory Blood [facility] [address] [place] [phone] * BASIC METABOLIC PANEL (11/24/2017 4:16 AM) [...] Performing Laboratory Blood [facility] [address] [place] [address] * POC GLUCOSE (11/24/2017 1:17 AM) Component Value Ref Range Glucose, POC 212 (H) 70 - 100 MG/DL Specimen Performing Laboratory [facility] [address] [place] [address] * MRA HEAD WO CONTRAST (11/23/2017 9:39 [...] 62 years old, intracranial aneurysm. TECHNIQUE: 3D kuyl-tn-qpikpbpzbtao of [place] was performed without contrast. MRA [...] 62 years old, intracranial aneurysm. TECHNIQUE: 3D xvjd-ks-iimjey images of [place] was performed without contrast. MRA [...] 70 - 100 MG/DL Specimen Performing Laboratory [facility] [address] [place] [address] * POC GLUCOSE (11/23/2017 5:09 PM) Component Value Ref Range Glucose, POC 322 (H) 70 - 100 MG/DL Specimen Performing Laboratory [facility] [address] [place] [address] * CULTURE-URINE W/SENSITIVITY (11/23/2017 2:52 PM) Component Value Ref Range Battery Name URINE CULTURE Specimen Description URINE Special Requests NONE Culture <10,000 organisms/ml MIXED CONTAMINANTS Report Status FINAL 11/24/2017 Specimen Performing Laboratory Urine [facility] [address] [place] [address] * URINALYSIS MICROSCOPIC REFLEX TO CULTURE (11/23/2017 2:52 PM) Component Value Ref Range WBCs,UA PACKED 0 - 2 /HPF RBCs,UA 2-10 0 - 3 /HPF Comment,UA Urine submitted for reflex culture if criteria are met:WBC>10, positive nitrite and/or >=1+ leukocyte esterase. If quantity is not sufficient, an addendum will follow. MucousUA TRACE Squamous Epithelial Cells 2-5 0 - 5 Specimen Performing Laboratory Urine [facility] [address] [place] [address] * URINALYSIS DIPSTICK REFLEX TO CULTURE (11/23/2017 2:52 PM) Component Value Ref Range Color,UA YELLOW Turbidity,UA CLEAR CLEAR-CLEAR Specific [place]-Urine 1.050 (H) 1.003 - 1.035 pH,UA 5.0 5.0 - 8.0 Protein,UA NEG NEG-NEG Glucose,UA 3+ (A) NEG-NEG Ketones,UA NEG NEG-NEG Bilirubin,UA NEG NEG-NEG Blood,UA 1+ (A) NEG-NEG Urobilinogen,UA NORMAL NORM-NORMAL Nitrite,UA NEG NEG-NEG Leukocytes,UA 3+ (A) NEG-NEG Urine Ascorbic Acid, UA NEG NEG-NEG Specimen Performing Laboratory Urine [facility] [address] [place] [address] * PANOREX EXAM (11/23/2017 2:41 PM) Specimen [...] history: pre-op eval. Coronary artery disease involving [place] coronary artery of [place] heart with unstable angina pectoralis Comparison: None. . Findings: The heart size and pulmonary vascularity are within normal limits. The lungs are clear. No consolidation or pleural effusion is identified. Surgical clips overlie the right upper quadrant of the abdomen. . Procedure Note Interface, Radiant Results - 11/23/2017 2:49 PM CDT CHEST 2 VIEWS . Clinical history: pre-op eval. Coronary artery disease involving [place] coronary artery of [place] heart with unstable angina pectoralis Comparison: None. [...] 0.57 E/E' ratio 11.29 CV ECHO PV DRIER UNLOADER Lionel STEVEN LV mass 203.43 66 - 150 g RWT 0.53 <=0.42 Cardiology Ultrasound Siemens [id number] Machine Left Ventricle Mass Index 114.93 44 [...] % FEV1-Pre 1.94 L FEV1-%Pred-Pre 83 % SAL0262-Elv 2.73 L/sec [id number]-%Pred-Pre 128 % VCSVC-Pre 2.44 L ICSVC-Pre 0.83 [...] -0.516 ml/min/mmHg/L Specimen Performing Laboratory PFT MAIN [address] [place] [address] Narrative Clinical history:->pre-op eval Is this a pre-surgical evaluation?->Yes * POC GLUCOSE (11/23/2017 1:53 PM) Component Value Ref Range Glucose, POC 194 (H) 70 - 100 MG/DL Specimen Performing Laboratory [facility]IN LAB [address] [place] [address] * TYPE & SCREEN (NOT CROSSMATCH ELIGIBLE) (11/23/2017 12:50 PM) Component Value Ref Range ABO/RH(D) A POS Antibody Screen NEG Blood Component Type RED CELL GROUP Specimen Performing Laboratory Blood, venous - Blood MAIN LAB [address] [place] [address] * PLAVIX RESISTANCE (PLATELETWORKS) (11/23/2017 12:18 PM) Component Value Ref Range Platelet Inhibition 3 0 - 15 % Comment: Normal ADP inhibition should be less than 15%. Therapeutic (Plavix and other P2Y 12) levels should be greater than 30%. Specimen Performing Laboratory Blood MAIN LAB [address] [place], [place] [id number] * HEMOGLOBIN A1C (11/23/2017 11:32 AM) Component Value Ref Range Hemoglobin A1C 10.4 (H) 4.0 - 6.0 % Comment: The ADA recommends that most patients with type 1 and type 2 diabetes maintain an A1c level <7%. Specimen Performing Laboratory Blood MAIN LAB [address] [place], [place] [id number] * PTT (APTT) (11/23/2017 11:32 AM) Component Value Ref Range APTT 25.0 21.0 - 39.0 SEC Specimen Performing Laboratory Blood MAIN LAB [address] [place], [place] [id number] * PROTIME INR (PT) (11/23/2017 11:32 AM) Component Value Ref Range INR 1.0 0.8 - 1.2 Specimen Performing Laboratory Blood MAIN LAB [address] [place], [place] [id number] * BNP (B-TYPE NATRIURETIC PEPTI) (11/23/2017 11:32 AM) Component Value Ref Range B Type Natriuretic 345.0 (H) 0 - 100 PG/ML Peptide Specimen Performing Laboratory Blood [facility] MAIN LAB [address] [place] [address] * POC GLUCOSE (11/23/2017 11:29 AM) Component Value Ref Range Glucose, POC 219 (H) 70 - 100 MG/DL Specimen Performing Laboratory MAIN LAB [address] [place] [address] * CARDIAC CATH REPORT (11/23/2017 11:10 AM) Specimen Performing Laboratory OTHER OUTSIDE LAB Procedure Note Arnulfo Cortes MD - 11/23/2017 11:10 AM CDT [facility] CARDIAC CATHETERIZATION REPORT Page 2 NIMISHA Condon : 1955 KU#: [id number] KU MR #/Billing ID #: [id number] / [id number] DATE: 11/23/2017 BANJO REPAIRER: Arnulfo Cortes MD DICTATING PROVIDER: Arnulfo Cortes MD REFERRING PHYSICIAN: ASHLEY BANEGAS PROCEDURES PERFORMED: 1. Left heart catheterization. 2. Selective left and right coronary cineangiograms. PROCEDURE: Ms. Jaramillo is a 62-year-old female who presented with a history of coronary artery disease and recent cardiac catheterization suggesting chronic total occlusion of the mid LAD. On arrival to cytology laboratory manager, she was hemodynamically stable and pain free. Moderate IV conscious sedation was monitored and administered by myself, nursing, and technical staff for a total duration of 30 minutes. The bilateral groins were then prepped and draped in typical fashion. We infiltrated the right groin with approximately 20 mL of 1% lidocaine and advanced a 5-[place] arterial sheath. Selective left and right coronary cineangiograms as well as left heart catheterization were performed utilizing a 5-[place] diagnostic coronary catheter. Intracoronary nitroglycerin was administered [...] There was some faint left-to- left and swbvj-qv-ydpe collateralization of the apical segment of the [...] second obtuse marginal branch. There was some adxs-ba-htadt collateralization of the posterolateral segment. 5. The [place] right coronary was visualized with a JR4 [...] mid left anterior descending artery with faint qlla-ky-cvjg collaterals. b. 90% mid second obtuse marginal stenosis with a 70% ostial circumflex stenosis. c. 95% proximal posterior lateral stenosis. PLAN: We will consult Cardiothoracic Surgery for evaluation. MD MG Toth/Hakeem /[id number] cc: - ASHLEY BANEGAS * POC GLUCOSE (11/23/2017 9:49 AM) Component Value Ref Range Glucose, POC 272 (H) 70 - 100 MG/DL Specimen Performing Laboratory MAIN LAB [address] [place] [address] * POC GLUCOSE (11/23/2017 8:48 AM) Component Value Ref Range Glucose, POC 297 (H) 70 - 100 MG/DL Specimen Performing Laboratory MAIN LAB [address] [place] [id number] * LIPID PROFILE (11/23/2017 8:48 AM) Component [...] Specimen Performing Laboratory Blood MAIN LAB [address] [place] [address] in this encounter Visit Diagnoses Diagnosis Coronary artery disease involving [place] coronary artery of [place] heart with unstable angina pectoris (HCC) - [...] EF is <40%, contact CCL Charge Nurse [phone] before initiating fluid. sodium chloride 0.9 % [...]
--- OUTSIDE RECORDS SUMMARY | 2017-12-09 03:02 | XMS REPORT | Encounter Summary ---
Author Author [facility] Organization [facility] Address Unknown Phone Unavailable Care Team Providers Care Distribution Operation Supervisor Name Role Phone Deann Parker MD PCP Encounter Details Date Type Department Care Team Description 12/01/2017 [facility] IvaKenny MD Arrived Encounter [address] [place] [address] [place] [address] [place] [address] [place], [place] [id number] Social History Tobacco Use Types Packs/Day Years [...] artery disease involving three times daily with [place] coronary artery of meals. Plus 0-14 units [place] heart with on sliding scale. unstable angina pectoris (HCC) insulin detemir(+) Inject 26 Units under the 10 mL 12 12/08/2017 (LEVEMIR) 100 unit/mL skin at bedtime daily. solnIndications: Coronary artery disease involving [place] coronary artery of [place] heart with unstable angina pectoris (HCC) lisinopril [...] with food. tabletIndications: Coronary artery disease involving [place] coronary artery of [place] heart with unstable angina pectoris (HCC) traMADol (ULTRAM) 50 mg Take 50 mg by mouth every tablet 6 hours as needed for Pain. amLODIPine (NORVASC) 10 Take 10 mg by mouth 12/08/2017 mg tablet daily. insulin aspart U-100 Inject 0-14 Units under 45 mL 3 11/25/2017 (NOVOLOG FLEXPEN) 100 the skin three times unit/mL injection daily with meals. PENIndications: Coronary artery disease involving [place] coronary artery of [place] heart with unstable angina pectoris (HCC) insulin detemir(+) Inject 35 Units under the 10 mL 12 11/25/2017 (LEVEMIR) 100 unit/mL skin at bedtime daily. solnIndications: Coronary artery disease involving [place] coronary artery of [place] heart with unstable angina pectoris (HCC) isosorbide [...] Performing Laboratory Blood [facility] MAIN LAB [address] [place] [address] * CBC (12/01/2017 1:43 PM) Component Value [...] Specimen Performing Laboratory Blood MAIN LAB [address] [place] [address] * TYPE & CROSSMATCH (12/01/2017 11:55 AM) Component Value Ref Range Units Ordered 0 Crossmatch Expires 12/04/2017 Record Check FOUND ABO/RH(D) A POS Antibody Screen NEG Electronic Crossmatch YES Specimen Performing Laboratory Blood MAIN LAB [address] [place] [address] in this encounter Visit Diagnoses Diagnosis Coronary artery disease involving [place] heart, angina presence unspecified, unspecified vessel or lesion type
--- OUTSIDE RECORDS SUMMARY | 2017-12-09 03:02 | XMS REPORT | Encounter Summary ---
Author Author [facility] Organization [facility] Address Unknown Phone Unavailable Care Team Providers Care Erp Manager Name Role Phone Deann Parker MD PCP Encounter Details Date Type Department Care Team Description 12/01/2017 PAC Office Preoperative Assessment Kenny Enrique MD Coronary artery disease Visit Clinic [address] involving [place] heart, [address] [place] [address] [place] [address] [place] [address] unspecified, unspecified [phone] vessel or lesion type Anesthesia Record Procedure [...] 12/02/17 1136 by Jt, Direct laryngoscopy, Stylet; RyanMIARA Single-Lumen, Cuffed; 7.5mm; Mac; 3; Oral; 1-Full [...] with any medicine updates or questions. E-mail: [email or web address] Before going home from the hospital, please [...] Questions answered appropriately. Pt gave permission for service liaison representative to update family during surgery. [facility] understands [facility], arrival time (0730) and two G 4% showers. Pt taken to admitting for registration and PAC for testing. in this encounter Plan of Treatment Not on fileas of this encounter Visit Diagnoses Diagnosis Coronary artery disease involving [place] heart, angina presence unspecified, unspecified vessel or lesion type
--- OUTSIDE RECORDS SUMMARY | 2017-12-09 03:03 | XMS REPORT | Encounter Summary ---
Author Author [facility] Organization [facility] Address Unknown Phone Unavailable Care Team Providers Care Production Laborer Name Role Phone Deann Parker MD PCP Encounter Details Date Type Department Care Team Description 11/24/[address] [facility] [address] [place] [address] Social History Tobacco Use Types Packs/Day Years [...]
--- OUTSIDE RECORDS SUMMARY | 2017-12-09 03:03 | XMS REPORT | Encounter Summary ---
Author Author [facility] Organization [facility] Address Unknown Phone Unavailable Care Team Providers Care Cfo Controller Name Role Phone Deann Parker MD PCP Encounter Details Date Type Department Care Team Description 11/24/2017 Procedure Pass Main Operating Room [address] [place] [address] Social History Tobacco Use Types Packs/Day Years [...]
--- OUTSIDE RECORDS SUMMARY | 2017-12-09 03:03 | XMS REPORT | Encounter Summary ---
Author Author [facility] Organization [facility] Address Unknown Phone Unavailable Care Team Providers Care Motor Vehicle Operator Road Supervisor Name Role Phone Deann Parker MD PCP Reason for Visit * Auth/Cert (Routine) Status Reason Specialty Diagnoses / Referred By Referred To Procedures Contact Contact Encounter Details Date Type Department Care Team Description 11/24/2017 Anesthesia Main Operating Room Meghan Iniguez MD Event [address] [facility] [address] [place] [address] [place] [address] [place] [address] [phone] Anesthesia Record Procedure Name Responsible Anesthesia Start [...] Cardiovascular Recent diagnostic studies: ECG and echocardiogram -[facility] 11/23/17 revealed an occluded LAD with [...] discussed with patient and healthcare power of trust and estates attorney (DPOA fiance). Use of blood products discussed with patient and healthcare power of trust and estates attorney ( DPOA fiance); consented to blood products. [...]
--- OUTSIDE RECORDS SUMMARY | 2017-12-09 03:04 | XMS REPORT | Encounter Summary ---
Author Author [facility] Organization [facility] Address Unknown Phone Unavailable Care Team Providers Care Armoring Machine Operator Name Role Phone Deann Parker MD PCP Reason for Visit * Reason Comments New Patient History And Physical same day heart cath * Auth/Cert (Routine) Status Reason Specialty Diagnoses / Referred By Referred To Procedures Contact Contact Encounter Details Date Type Department Care Team Description 11/23/2017 Office Visit [facility] Vinod Cortes MD New Patient; History And [address] [place] [address] Physical (same day heart [address] cath) [place] [address] [place] [address] [phone] Social History Tobacco Use Types Packs/Day Years [...] Diagnosis Date Noted Bilateral carotid artery disease ([facility]) 11/17/2017 05/04/17 - Carotid U/S: mild 1-39% stenosis, nonobstructive disease bilaterally. Coronary artery disease involving [place] coronary artery of [place] heart with unstable angina pectoris ([facility]) 11/17/2017 03/05/17 - [facility]: Total occlusion of the mid LAD, balloon angioplasty using 2 different sized balloons. No reestablishment of flow. Appears the artery is diffusely diseased & occluded. Proximal portion has severe disease - balloon angioplasty with slight improvement. Severe disease at mid and distal circumflex - fairly small artery. Patent stent in large dominant RCA. Normal LV , EF 60%, normal LVEDP. 06/16/16 - [facility]: Severe in-stent restenosis in prox and mid [...] circumflex, fairly small artery. Normal LVEDP. 06/2015 [facility]: 2.5 x 18 mm Resolute Integrity stent to mid circumflex, prox lesion is 40% stenosed, distal lesion 80%. Patent multiple stents in prox, mid, and distal LAD w/ mild in-stent restenosis. Patent stent in RCA w/ mild disease in distal RCA. 05/2015 [facility]: 3.5 x 12 mm & 2.75 x 24 mm Promus Premier overlapping stents to mid RCA. Patent stents in the LAD. Severe stenosis at distal LAD, 70% prox circumflex and 70-80% mid to distal circ/OM branch. [facility]: 2.5 x 24 mm and 2.5 x 20 mm Promusto distal and proximal LAD, 50% prox circumflex, 70-80% mid to distal circumflex involving the proximal portion of OM1, 50-60% mid RCA, LV anterior wall hypokinetic. EF 40%. PAD (peripheral artery disease) ([facility]) 11/17/2017 Essential hypertension 11/17/2017 Mixed hyperlipidemia 11/17/2017 History of tobacco abuse 11/17/2017 Type 2 diabetes mellitus with complication, with long-term current use of insulin ([facility]) 11/17/2017 Review of Systems Constitution: Positive for [...] Diagnoses Name Primary? Coronary artery disease involving [place] coronary artery of [place] heart with unstable angina pectoris (HCC) Yes Type 2 diabetes mellitus with complication, with long-term current use of insulin ([facility]) Assessment and Plan 1. Coronary artery disease [...] Routine Coronary artery disease Ordered: 11/23/2017 involving [place] coronary artery of [place] heart with unstable angina pectoris (HCC) Type 2 diabetes mellitus with complication, with long-term current use of insulin (HCC) as of this encounter Visit Diagnoses Diagnosis Coronary artery disease involving [place] coronary artery of [place] heart with unstable angina pectoris (HCC) - Primary Type 2 diabetes mellitus with complication, with long-term current use of insulin ([facility])
--- OUTSIDE RECORDS SUMMARY | 2017-12-09 03:04 | XMS REPORT | Encounter Summary ---
Author Author [facility] Organization [facility] Address Unknown Phone Unavailable Care Team Providers Care Edge Baster Name Role Phone Ashley Banegas MD PCP Reason for Visit * Auth/Cert (Routine) Status Reason Specialty Diagnoses / Referred By Referred To Procedures Contact Contact Encounter Details Date Type Department Care Team Description 11/24/2017 Surgery Main Operating Room Dena Gayle DDS EXTRACTION TEETH #6, 7, [address] 8, 9, 10, 11, 14, 22-27 [place] [address] [facility] [address] [place] [address] [phone] Social History Tobacco Use Types Packs/Day Years [...] Date Bilateral carotid artery disease ([facility]) 11/17/2017 05/04/17 - Carotid U/S: mild 1-39% stenosis, nonobstructive disease bilaterally. Coronary artery disease involving caddo coronary artery of caddo heart with unstable angina pectoris ([facility]) 11/17/2017 03/04/17 - LHC: Total occlusion [...] 11/17/2017 PAD (peripheral artery disease) ([facility]) 11/17/2017 Type 2 diabetes mellitus with complication, with long-term current use of insulin ([facility]) 11/17/2017 Allergies: Fish containing products; Ketoprofen; [...] extraction on 11/11 and recent insulin adjustment. LOW HEEL BUILDER, she has been taking Levemir insulin 88 [...] moderate dose correction factor with meals. The life educator also met with the patient [...] 97-144. She will resume Metformin at the LOW HEEL BUILDER dose, only when she is eating regular [...] She has been on Lasix 40mg daily LOW HEEL BUILDER but was instructed to stop this and [...] Active Problems * (Principal)Coronary artery disease involving caddo coronary artery of caddo heart with unstable angina pectoris (HCC) Essential [...] There was some faint left-to- left and atxoe-yb-suxb collateralization of the apical segment of the [...] second obtuse marginal branch. There was some gops-ur-awhte collateralization of the posterolateral segment. 5. The caddo right coronary was visualized with a JR4 [...] HOURS (8:00 AM - 4:30 PM): Call [phone] and asked to be transferred to your discharge attending physician. - AFTER BUSINESS HOURS (4:30 PM - 8:00 AM, on weekends, or holidays): Call [phone] and ask the candle wrapping machine operator to page the on-call doctor for the discharge attending physician. Discharging attending physician: ARNULFO CORTES [[id number]] Cardiac Diet Limiting unhealthy fats and cholesterol [...] home, you can call a dietitian at [phone]. Incision Care *Call if there is an increase in pain, swelling, or redness in your right groin or your gums. Take Tylenol for pain. *DO NOT soak groin incision in water. *NO tub baths, hot tubs, or swimming. *You may shower after discharge. [facility] [place] [facility] [place] is a gathering place for individuals, families, [...] please call . You can also visit [email or web address] for more information. Current Discharge Medication List START taking these medications Details spironolactone (ALDACTONE) 25 mg tablet Take 0.5 tablets by mouth daily. Take with food. Qty: 15 tablet, Refills: 5 PRESCRIPTION TYPE: Normal Associated Diagnoses: Coronary artery disease involving caddo coronary artery of caddo heart with unstable angina pectoris (HCC) CONTINUE these medications which have been CHANGED or REFILLED Details !! insulin aspart U-100 (NOVOLOG FLEXPEN) 100 unit/mL injection PEN Inject 10 Units under the skin three times daily with meals. Qty: 45 mL, Refills: 3 PRESCRIPTION TYPE: No Print Associated Diagnoses: Coronary artery disease involving caddo coronary artery of caddo heart with unstable angina pectoris (HCC) !! insulin aspart U-100 (NOVOLOG FLEXPEN) 100 unit/mL injection PEN Inject 0-14 Units under the skin three times daily with meals. Qty: 45 mL, Refills: 3 PRESCRIPTION TYPE: Normal Associated Diagnoses: Coronary artery disease involving caddo coronary artery of caddo heart with unstable angina pectoris (HCC) insulin detemir(+) (LEVEMIR) 100 unit/mL soln Inject 35 Units under the skin at bedtime daily. Qty: 10 mL, Refills: 12 PRESCRIPTION TYPE: No Print Associated Diagnoses: Coronary artery disease involving caddo coronary artery of caddo heart with unstable angina pectoris (HCC) !! [...] 2017 2:00 PM CDT Pre-Op Nurse with [facility] ([facility]) [address] [facility] [id number] December 01, 2017 2:30 PM CDT PAC Office Visit with PAC ROOM 6 Preoperative Assessment Clinic (--) [address] [facility] [id number] Pending items needing follow up: as above [...] minutes Novolog is in the [employer] pen. If your pre meal Blood sugar [...] artery disease involving three times daily with caddo coronary artery of meals. Plus 0-14 units caddo heart with on sliding scale. unstable angina pectoris (HCC) insulin detemir(+) Inject 26 Units under the 10 mL 12 12/08/2017 (LEVEMIR) 100 unit/mL skin at bedtime daily. solnIndications: Coronary artery disease involving caddo coronary artery of caddo heart with unstable angina pectoris (HCC) lisinopril [...] with food. tabletIndications: Coronary artery disease involving caddo coronary artery of caddo heart with unstable angina pectoris (HCC) traMADol (ULTRAM) 50 mg Take 50 mg by mouth every tablet 6 hours as needed for Pain. amLODIPine (NORVASC) 10 Take 10 mg by mouth 12/08/2017 mg tablet daily. insulin aspart U-100 Inject 10 Units under the 45 mL 3 11/25/2017 (NOVOLOG FLEXPEN) 100 skin three times daily unit/mL injection with meals. PENIndications: Coronary artery disease involving caddo coronary artery of caddo heart with unstable angina pectoris (HCC) insulin aspart U-100 Inject 0-14 Units under 45 mL 3 11/25/2017 (NOVOLOG FLEXPEN) 100 the skin three times unit/mL injection daily with meals. PENIndications: Coronary artery disease involving caddo coronary artery of caddo heart with unstable angina pectoris (HCC) insulin detemir(+) Inject 35 Units under the 10 mL 12 11/25/2017 (LEVEMIR) 100 unit/mL skin at bedtime daily. solnIndications: Coronary artery disease involving caddo coronary artery of caddo heart with unstable angina pectoris (HCC) isosorbide [...] recently updated. Dena Gayle DDS, PhD Pager [phone] * Jennifer Elkins RN - 11/24/2017 12:04 [...] and provide further information. Italo Russo PA-C [id number] Associated attestation - Kenny Enrique MD - [...] Warren RN - 11/24/2017 10:09 AM CDT [id number]: Phone report given to Caroline PEARCE regarding pt to transfer care to [phone]. * Corrie Fuentes PA-C - 11/24/2017 8:21 AM CDT Formatting of this note may be different from the original. Cardiology Daily Progress Note Nimisha Clint Admission Date: 11/23/2017 Assessment/Plan: Principal Problem: Coronary artery disease involving caddo coronary artery of caddo heart with unstable angina pectoris (HCC) Active [...] get some low readings on current regimen -LOW HEEL BUILDER on Levemir insulin 88 units BID (early am, HS) and Novolog 75 units TID with meals and Metformin 1000mg BID. Dental Caries -Panorex xray 11/23/17 revealed erosions or caries involving the remaining maxillary teeth, sparing the residual left maxillary molar. Thin rind of lucency surrounding the right mandibular canine tooth, likely due to periodontal disease/gingivitis. Hypertension -BPs reasonably controlled -LOW HEEL BUILDER on Lisinopril 20mg daily, Toprol 100mg daily, Imdur 30mg daily Hyperlipidemia -LOW HEEL BUILDER on Atorvastatin 40mg daily and reportedly jsut [...] CDT Pt off floor for testing from [phone] * Itaol Russo PA-C - 11/23/2017 11:58 AM CDT [...] referred to Dr. Cortes from her home licensed professional counselor to attempt PCI of her known LEGAL LIBRARIAN LAD lesion. Dr. Cortes consulted CTS for evaluation for surgical revascularization after [facility] today revealed severe, multivessel CAD in a [...] Reoperation: 3.351% CATH FINDINGS: Coronary Stenosis LAD--> LEGAL LIBRARIAN Diag--> 80% proximal OM --> 70% ostial, 90% mid RCA--> 95% distal PMH: Past Medical History: Diagnosis Date Bilateral carotid artery disease ([facility]) 11/17/2017 05/04/17 - Carotid U/S: mild 1-39% stenosis, nonobstructive disease bilaterally. Coronary artery disease involving caddo coronary artery of caddo heart with unstable angina pectoris ([facility]) 11/17/2017 03/04/17 - LHC: Total occlusion [...] 11/17/2017 PAD (peripheral artery disease) ([facility]) 11/17/2017 Type 2 diabetes mellitus with complication, with long-term current use of insulin ([facility]) 11/17/2017 PSH: Past Surgical History: Procedure [...] Hospital Problems Diagnosis Coronary artery disease involving caddo coronary artery of caddo heart with unstable angina pectoris (HCC) 03/05/17 - [facility]: Total occlusion of the mid LAD, balloon [...] fairly small artery. Normal LVEDP. 06/2015 - [facility]: 2.5 x 18 mm Resolute Integrity stent to mid circumflex, prox lesion is 40% stenosed, distal lesion 80%. Patent multiple stents in prox, mid, and distal LAD w/ mild in-stent restenosis. Patent stent in RCA w/ mild disease in distal RCA. 05/2015 [facility]: 3.5 x 12 mm & 2.75 x 24 mm Promus Premier overlapping stents to mid RCA. Patent stents in the LAD. Severe stenosis at distal LAD, 70% prox circumflex and 70-80% mid to distal circ/OM branch. [facility]: 2.5 x 24 mm and 2.5 [...] re-operation, prolonged intubation, ARF requiring hemodialysis, CVA, LA, and possibly even . The patient understands, [...] of arrival for Thursday. Italo Russo PA-C [phone] Associated attestation - Kenny Enrique MD - [...] from date of service 11/23/2017. ALENA Richards ([id number]) Progress Notes Arnulfo Cortes MD (Physician) Cardiology [...] Noted Bilateral carotid artery disease ([facility]) 11/17/2017 05/04/17 - Carotid U/S: mild 1-39% stenosis, nonobstructive disease bilaterally. Coronary artery disease involving caddo coronary artery of caddo heart with unstable angina pectoris ([facility]) 11/17/2017 03/05/17 - [facility]: Total occlusion of the mid LAD, balloon angioplasty using 2 different sized balloons. No reestablishment of flow. Appears the artery is diffusely diseased & occluded. Proximal portion has severe disease - balloon angioplasty with slight improvement. Severe disease at mid and distal circumflex - fairly small artery. Patent stent in large dominant RCA. Normal LV , EF 60%, normal LVEDP. 06/16/16 - [facility]: Severe in-stent restenosis in prox and mid [...] fairly small artery. Normal LVEDP. 06/2015 - [facility]: 2.5 x 18 mm Resolute Integrity stent to mid circumflex, prox lesion is 40% stenosed, distal lesion 80%. Patent multiple stents in prox, mid, and distal LAD w/ mild in-stent restenosis. Patent stent in RCA w/ mild disease in distal RCA. 05/2015 [facility]: 3.5 x 12 mm & 2.75 x 24 mm Promus Premier overlapping stents to mid RCA. Patent stents in the LAD. Severe stenosis at distal LAD, 70% prox circumflex and 70-80% mid to distal circ/OM branch. [facility]: 2.5 x 24 mm and 2.5 x 20 mm Promusto distal and proximal LAD, 50% prox circumflex, 70-80% mid to distal circumflex involving the proximal portion of OM1, 50-60% mid RCA, LV anterior wall hypokinetic. EF 40%. PAD (peripheral artery disease) ([facility]) 11/17/2017 Essential hypertension 11/17/2017 Mixed hyperlipidemia 11/17/2017 History of tobacco abuse 11/17/2017 Type 2 diabetes mellitus with complication, with long-term current use of insulin ([facility]) 11/17/2017 Past Surgical History: Procedure Laterality [...] Diagnoses Name Primary? Coronary artery disease involving caddo coronary artery of caddo heart with unstable angina pectoris (HCC) Yes Type 2 diabetes mellitus with complication, with long-term current use of insulin ([facility]) Assessment and Plan Coronary artery disease [...] AM CDT Associated Order(s): CARDIAC CATH REPORT [facility] at [facility] CARDIAC CATHETERIZATION REPORT Page 2 NIMISHA Condon : 1955 #: [id number] MR #/Billing ID #: [id number] / [id number] DATE: 11/23/2017 ELECTRICAL PROJECT MANAGER: Arnulfo Cortes MD DICTATING PROVIDER: Arnulfo Cortes MD REFERRING PHYSICIAN: ASHLEY BANEGAS PROCEDURES PERFORMED: 1. Left heart catheterization. 2. Selective left and right coronary cineangiograms. PROCEDURE: Ms. Jaramillo is a 62-year-old female who presented with a history of coronary artery disease and recent cardiac catheterization suggesting chronic total occlusion of the mid LAD. On arrival to microbiology lab assistant, she was hemodynamically stable and pain free. Moderate IV conscious sedation was monitored and administered by myself, nursing, and technical staff for a total duration of 30 minutes. The bilateral groins were then prepped and draped in typical fashion. We infiltrated the right groin with approximately 20 mL of 1% lidocaine and advanced a 5-Nauruan arterial sheath. Selective left and right coronary cineangiograms as well as left heart catheterization were performed utilizing a 5-Nauruan diagnostic coronary catheter. Intracoronary nitroglycerin was administered [...] There was some faint left-to- left and epofo-qc-okaz collateralization of the apical segment of the [...] second obtuse marginal branch. There was some hvzz-ky-tuovs collateralization of the posterolateral segment. 5. The caddo right coronary was visualized with a JR4 [...] mid left anterior descending artery with faint klnx-zg-hplo collaterals. b. 90% mid second obtuse marginal stenosis with a 70% ostial circumflex stenosis. c. 95% proximal posterior lateral stenosis. PLAN: We will consult Cardiothoracic Surgery for evaluation. MD MG Toth/Hakeem /[id number] cc: - ASHLEY BANEGAS in this encounter [...] this consult Dena Gayle DDS, PHD Pager [phone] * Jennifer Oshea, PORTIA - 11/24/2017 1:44 PM CDT Associated Order(s): CONSULT DIABETES NURSE EDUCATOR Formatting of this note may be different from the original. INPATIENT DIABETES EDUCATION TEAM Clinical Excellence Nursing Practice Reason for Consult: Other (Comment) Order comments: Poorly managed diabetes at home. Changing regimen Discussed Consult with Primary Team: Dr. Gutierrez, Equipment Operator/Laborer/Supervisor, Aneta, bedside RN Patient may benefit from: referral to [facility] for Diabetes Education, Financial Planning Advisor to cover carb controlled/heart healthy diet, and [...] bedside. Educator explained to pt that the Equipment Operator/Laborer/Supervisor who visited with pt earlier was changing pt's insulin dosing schedule to see if LOW HEEL BUILDER insulin was really what was needed. Her [...] minutes Novolog is in the [employer]. If your pre meal Blood sugar [...] - Diabetes Education Nursing Clinical Excellence [facility] [email or web address] [phone] office [phone] pager * Terrance Mack MD - 11/24/2017 11:12 AM CDT Associated Order(s): CONSULT ENDOCRINOLOGY PHYSICIAN Formatting of this note may be different from the original. Endocrinology Consultation Today's Date: 11/24/2017 Admission Date: 11/23/2017 Reason for this consultation: Assessment: Diabetes mellitus-2: A1c 10.4 , uncontrolled LOW HEEL BUILDER regimen: Levemir 88 units BID, Novolog 75 units after lunch and dinner, metformin 1000 mg BID Hypoglycemic episodes on this regimen: 2x/week after breakfast Follows up with for diabetes management: PCP at [place], [place] Diabetic-complications assessment: Retinopathy: Yes Peripheral neuropathy: [...] before meals and bedtime. We will request life educator to come and talk to [...] Date Bilateral carotid artery disease ([facility]) 11/17/2017 05/04/17 - Carotid U/S: mild 1-39% stenosis, nonobstructive disease bilaterally. Coronary artery disease involving caddo coronary artery of caddo heart with unstable angina pectoris ([facility]) 11/17/2017 03/04/17 - [facility]: Total occlusion of the mid LAD, balloon [...] 11/17/2017 PAD (peripheral artery disease) ([facility]) 11/17/2017 Type 2 diabetes mellitus with complication, with long-term current use of insulin ([facility]) 11/17/2017 Past Surgical History Past Surgical [...] clubbing, cyanosis or edema Skin: no rashes/lesions AUXILIARY PLANT OPERATOR: Grossly nonfocal Lab Review Point of Care [...] FREET4, FREEINDEX No results found for: FREET3, [id number], THYBINDGLB Eugenia Gutierrez MD Endocrinology Fellow PGY-5 [...] of a resident. Dena Gayle DDS Pager [phone] * Care Plan - Aneta Goodson - [...] MG/DL Specimen Performing Laboratory MAIN LAB [address] [place] [id number] * BASIC METABOLIC PANEL (11/25/2017 4:07 AM) [...] Pharmacist for questions. Specimen Performing Laboratory Blood [facility] [address] [place] [address] * POC GLUCOSE (11/24/2017 9:33 PM) Component Value Ref Range Glucose, POC 131 (H) 70 - 100 MG/DL Specimen Performing Laboratory [facility] [address] [place] [address] * POC GLUCOSE (11/24/2017 6:36 PM) Component Value Ref Range Glucose, POC 97 70 - 100 MG/DL Specimen Performing Laboratory MAIN LAB [address] [place] [address] * POC GLUCOSE (11/24/2017 5:23 PM) Component Value Ref Range Glucose, POC 105 (H) 70 - 100 MG/DL Specimen Performing Laboratory MAIN LAB [address] [place] [address] * POC GLUCOSE (11/24/2017 5:10 PM) Component Value Ref Range Glucose, POC 119 (H) 70 - 100 MG/DL Specimen Performing Laboratory MAIN LAB [address] [place] [address] * POC GLUCOSE (11/24/2017 12:19 PM) Component Value Ref Range Glucose, POC 318 (H) 70 - 100 MG/DL Specimen Performing Laboratory MAIN LAB [address] [place], [place] [id number] * POC GLUCOSE (11/24/2017 10:41 AM) Component Value Ref Range Glucose, POC 333 (H) 70 - 100 MG/DL Specimen Performing Laboratory MAIN LAB [address] [place] [address] * POC GLUCOSE (11/24/2017 7:57 AM) Component Value Ref Range Glucose, POC 222 (H) 70 - 100 MG/DL Specimen Performing Laboratory MAIN LAB [address] [place] [address] * MAGNESIUM (11/24/2017 4:16 AM) Component Value Ref Range Magnesium 1.8 1.6 - 2.6 mg/dL Specimen Performing Laboratory Blood [facility] [address] [place] [address] * CBC (11/24/2017 4:16 AM) Component Value [...] - 11 FL Specimen Performing Laboratory Blood [facility] [address] [place] [address] * BASIC METABOLIC PANEL (11/24/2017 4:16 AM) [...] Performing Laboratory Blood [facility] MAIN [facility] [address] [place] [address] * POC GLUCOSE (11/24/2017 1:17 AM) Component Value Ref Range Glucose, POC 212 (H) 70 - 100 MG/DL Specimen Performing Laboratory [facility] MAIN [facility] [address] [place] [address] * MRA HEAD WO CONTRAST (11/23/2017 9:39 PM) Specimen Performing Laboratory [facility] RAD RESULTS Impressions Unremarkable MRA of the head with no evidence of aneurysm. Findings were discussed via telephone with Corrie Fuetnes PA-C at 9:47 AM on . Approved [...] 62 years old, intracranial aneurysm. TECHNIQUE: 3D gxue-qv-khnfeypakbwa of the [place] was performed without contrast. MRA [...] 62 years old, intracranial aneurysm. TECHNIQUE: 3D myoz-ql-cdycsl images of the [place] was performed without contrast. MRA [...] MG/DL Specimen Performing Laboratory MAIN LAB [address] [place] [address] * POC GLUCOSE (11/23/2017 5:09 PM) Component Value Ref Range Glucose, POC 322 (H) 70 - 100 MG/DL Specimen Performing Laboratory [facility] [address] [place] [address] * CULTURE-URINE W/SENSITIVITY (11/23/2017 2:52 PM) Component Value Ref Range Battery Name URINE CULTURE Specimen Description URINE Special Requests NONE Culture <10,000 organisms/ml MIXED CONTAMINANTS Report Status FINAL 11/24/2017 Specimen Performing Laboratory Urine [facility] [address] [place] [address] * URINALYSIS MICROSCOPIC REFLEX TO CULTURE (11/23/2017 2:52 PM) Component Value Ref Range WBCs,UA PACKED 0 - 2 /HPF RBCs,UA 2-10 0 - 3 /HPF Comment,UA Urine submitted for reflex culture if criteria are met:WBC>10, positive nitrite and/or >=1+ leukocyte esterase. If quantity is not sufficient, an addendum will follow. MucousUA TRACE Squamous Epithelial Cells 2-5 0 - 5 Specimen Performing Laboratory Urine [facility] [address] [place] [address] * URINALYSIS DIPSTICK REFLEX TO CULTURE (11/23/2017 2:52 PM) Component Value Ref Range Color,UA YELLOW Turbidity,UA CLEAR CLEAR-CLEAR Specific [place]-Urine 1.050 (H) 1.003 - 1.035 pH,UA 5.0 5.0 - 8.0 Protein,UA NEG NEG-NEG Glucose,UA 3+ (A) NEG-NEG Ketones,UA NEG NEG-NEG Bilirubin,UA NEG NEG-NEG Blood,UA 1+ (A) NEG-NEG Urobilinogen,UA NORMAL NORM-NORMAL Nitrite,UA NEG NEG-NEG Leukocytes,UA 3+ (A) NEG-NEG Urine Ascorbic Acid, UA NEG NEG-NEG Specimen Performing Laboratory Urine [facility] MAIN LAB [address] [place] [address] * PANOREX EXAM (11/23/2017 2:41 PM) Specimen [...] history: pre-op eval. Coronary artery disease involving caddo coronary artery of caddo heart with unstable angina pectoralis Comparison: None. . Findings: The heart size and pulmonary vascularity are within normal limits. The lungs are clear. No consolidation or pleural effusion is identified. Surgical clips overlie the right upper quadrant of the abdomen. . Procedure Note Interface, Radiant Results - 11/23/2017 2:49 PM CDT CHEST 2 VIEWS . Clinical history: pre-op eval. Coronary artery disease involving caddo coronary artery of caddo heart with unstable angina pectoralis Comparison: None. [...] 0.57 E/E' ratio 11.29 CV ECHO PV AUTOMATIC GRINDING MACHINE OPERATOR STEVEN Flowers LV mass 203.43 66 - 150 g RWT 0.53 <=0.42 Cardiology Ultrasound Siemens [id number] Machine Left Ventricle Mass Index 114.93 44 [...] % FEV1-Pre 1.94 L FEV1-%Pred-Pre 83 % [id number] 2.73 L/sec [id number]-%Pred-Pre 128 % VCSVC-Pre 2.44 L ICSVC-Pre 0.83 [...] -0.516 ml/min/mmHg/L Specimen Performing Laboratory PFT MAIN [address] [place] [address] Narrative Clinical history:->pre-op eval Is this a pre-surgical evaluation?->Yes * POC GLUCOSE (11/23/2017 1:53 PM) Component Value Ref Range Glucose, POC 194 (H) 70 - 100 MG/DL Specimen Performing Laboratory MAIN LAB [address] [place] [address] * TYPE & SCREEN (NOT CROSSMATCH ELIGIBLE) (11/23/2017 12:50 PM) Component Value Ref Range ABO/RH(D) A POS Antibody Screen NEG Blood Component Type RED CELL GROUP Specimen Performing Laboratory Blood, venous - Blood MAIN LAB [address] [place] [address] * PLAVIX RESISTANCE (PLATELETWORKS) (11/23/2017 12:18 PM) Component Value Ref Range Platelet Inhibition 3 0 - 15 % Comment: Normal ADP inhibition should be less than 15%. Therapeutic (Plavix and other P2Y 12) levels should be greater than 30%. Specimen Performing Laboratory Blood MAIN LAB [address] [place] [address] * HEMOGLOBIN A1C (11/23/2017 11:32 AM) Component Value Ref Range Hemoglobin A1C 10.4 (H) 4.0 - 6.0 % Comment: The ADA recommends that most patients with type 1 and type 2 diabetes maintain an A1c level <7%. Specimen Performing Laboratory Blood MAIN LAB [address] [place] [address] * PTT (APTT) (11/23/2017 11:32 AM) Component Value Ref Range APTT 25.0 21.0 - 39.0 SEC Specimen Performing Laboratory Blood MAIN LAB [address] [place] [address] * PROTIME INR (PT) (11/23/2017 11:32 AM) Component Value Ref Range INR 1.0 0.8 - 1.2 Specimen Performing Laboratory Blood MAIN LAB [address] [place] [address] * BNP (B-TYPE NATRIURETIC PEPTI) (11/23/2017 11:32 AM) Component Value Ref Range B Type Natriuretic 345.0 (H) 0 - 100 PG/ML Peptide Specimen Performing Laboratory Blood MAIN LAB [address] [place] [address] * POC GLUCOSE (11/23/2017 11:29 AM) Component Value Ref Range Glucose, POC 219 (H) 70 - 100 MG/DL Specimen Performing Laboratory MAIN LAB [address] [place] [address] * CARDIAC CATH REPORT (11/23/2017 11:10 AM) Specimen Performing Laboratory OTHER OUTSIDE LAB Procedure Note Arnulfo Cortes MD - 11/23/2017 11:10 AM CDT [facility] CARDIAC CATHETERIZATION REPORT Page 2 NIMISHA Condon : 1955 KU#: [id number] MR #/Billing ID #: [id number] / [id number] DATE: 11/23/2017 ELECTRICAL PROJECT MANAGER: Arnulfo Cortes MD DICTATING PROVIDER: Arnulfo Cortes MD REFERRING PHYSICIAN: ASHLEY BANEGAS PROCEDURES PERFORMED: 1. Left heart catheterization. 2. Selective left and right coronary cineangiograms. PROCEDURE: Ms. Jaramillo is a 62-year-old female who presented with a history of coronary artery disease and recent cardiac catheterization suggesting chronic total occlusion of the mid LAD. On arrival to microbiology lab assistant, she was hemodynamically stable and pain free. Moderate IV conscious sedation was monitored and administered by myself, nursing, and technical staff for a total duration of 30 minutes. The bilateral groins were then prepped and draped in typical fashion. We infiltrated the right groin with approximately 20 mL of 1% lidocaine and advanced a 5-Nauruan arterial sheath. Selective left and right coronary cineangiograms as well as left heart catheterization were performed utilizing a 5-[place]aur[place] diagnostic coronary catheter. Intracoronary nitroglycerin was administered [...] There was some faint left-to- left and wzjsr-xg-ghfp collateralization of the apical segment of the [...] second obtuse marginal branch. There was some jipz-qf-laljy collateralization of the posterolateral segment. 5. The [place] right coronary was visualized with a JR4 [...] mid left anterior descending artery with faint nrrm-mm-coqw collaterals. b. 90% mid second obtuse marginal stenosis with a 70% ostial circumflex stenosis. c. 95% proximal posterior lateral stenosis. PLAN: We will consult Cardiothoracic Surgery for evaluation. MD MG Toth/Hakeem /[id number] cc: - ASHLEY BANEGAS * POC GLUCOSE (11/23/2017 9:49 AM) Component Value Ref Range Glucose, POC 272 (H) 70 - 100 MG/DL Specimen Performing Laboratory MAIN LAB [address] [place] [address] * POC GLUCOSE (11/23/2017 8:48 AM) Component Value Ref Range Glucose, POC 297 (H) 70 - 100 MG/DL Specimen Performing Laboratory [facility] MAIN LAB [address] [place] [address] * LIPID PROFILE (11/23/2017 8:48 AM) Component [...] Specimen Performing Laboratory Blood MAIN LAB [address] [place] [address] in this encounter Visit Diagnoses Diagnosis Tooth [...] EF is <40%, contact CCL Charge Nurse [phone] before initiating fluid. sodium chloride 0.9 % [...]
--- OUTSIDE RECORDS SUMMARY | 2017-12-09 03:04 | XMS REPORT | Encounter Summary ---
Author Author [facility] Organization [facility] Address Unknown Phone Unavailable Care Team Providers Care Heel Slugger Name Role Phone Deann Parker MD PCP Encounter Details Date Type Department Care Team Description 11/23/2017 Procedure Pass Cardiac Catheterization Laboratory [address] [place] [address] Social History Tobacco Use Types Packs/Day Years Used Date Former Smoker Quit: 01/23/2017 Smokeless Tobacco: Never Used Alcohol Use Drinks/Week oz/Week Comments No Sex Assigned at Date Recorded Not on file as of this encounter Plan of Treatment Not on fileas of this encounter Visit Diagnoses Not on filein this encounter
--- OUTSIDE RECORDS SUMMARY | 2017-12-09 03:04 | XMS REPORT | Encounter Summary ---
Author Author [facility] Organization [facility] Address Unknown Phone Unavailable Care Team Providers Care Engraver Signature Name Role Phone eDann Parker MD PCP Encounter Details Date Type Department Care Team Description 11/23/2017 Prep for Case ADMITTING Dena Gayle DDS Tooth decay ( Primary Dx) [address] [facility]. [address] [place] [address] [address] [place] [address] [phone] Social History Tobacco Use Types Packs/Day Years Used Date Former Smoker Quit: 01/23/2017 Smokeless Tobacco: Never Used Alcohol Use Drinks/Week oz/Week Comments No Sex Assigned at Date Recorded Not on file as of this encounter Plan of Treatment Not on fileas of this encounter Visit Diagnoses Diagnosis Tooth decay - Primary Unspecified dental caries
--- OUTSIDE RECORDS SUMMARY | 2017-12-09 03:04 | XMS REPORT | Encounter Summary ---
Author Author [facility] Organization [facility] Address Unknown Phone Unavailable Care Team Providers Care Arabic Professor Name Role Phone Deann Parker MD PCP Reason for Visit * Auth/Cert (Routine) Status Reason Specialty Diagnoses / Referred By Referred To Procedures Contact Contact Encounter Details Date Type Department Care Team Description 11/23/2017 [facility] Cardiology Italo Russo PA-C Encounter [address] [place] [address] [place] [address] [place] [address] [address] [place] [address] [phone] Social History Tobacco Use Types Packs/Day Years [...] artery disease involving three times daily with [place] coronary artery of meals. Plus 0-14 units [place] heart with on sliding scale. unstable angina pectoris (HCC) insulin detemir(+) Inject 26 Units under the 10 mL 12 12/08/2017 (LEVEMIR) 100 unit/mL skin at bedtime daily. solnIndications: Coronary artery disease involving [place] coronary artery of [place] heart with unstable angina pectoris (HCC) lisinopril [...] with food. tabletIndications: Coronary artery disease involving [place] coronary artery of [place] heart with unstable angina pectoris (HCC) traMADol [...] at bedtime. PENIndications: Coronary artery disease involving [place] coronary artery of [place] heart with unstable angina pectoris (HCC) insulin aspart U-100 Inject 10 Units under the 45 mL 3 11/25/2017 (NOVOLOG FLEXPEN) 100 skin three times daily unit/mL injection with meals. PENIndications: Coronary artery disease involving [place] coronary artery of [place] heart with unstable angina pectoris (HCC) insulin aspart U-100 Inject 0-14 Units under 45 mL 3 11/25/2017 (NOVOLOG FLEXPEN) 100 the skin three times unit/mL injection daily with meals. PENIndications: Coronary artery disease involving [place] coronary artery of [place] heart with unstable angina pectoris (HCC) insulin aspart U-100 Inject 75 Units under the 11/25/2017 (NOVOLOG) 100 unit/mL skin three times daily injection with meals. insulin detemir(+) Inject 35 Units under the 10 mL 12 11/25/2017 (LEVEMIR) 100 unit/mL skin at bedtime daily. solnIndications: Coronary artery disease involving [place] coronary artery of [place] heart with unstable angina pectoris (HCC) insulin [...]
--- OUTSIDE RECORDS SUMMARY | 2017-12-09 03:04 | XMS REPORT | Encounter Summary ---
Author Author [facility] Organization [facility] Address Unknown Phone Unavailable Care Team Providers Care Terrazzo Tile Setter Name Role Phone Deann Parker MD PCP Encounter Details Date Type Department Care Team Description 11/23/2017 Procedure Pass Cardiothor Prgr[facility] cr [address] [facility] [place] [address] Social History Tobacco Use Types Packs/Day Years Used Date Former Smoker Quit: 01/23/2017 Smokeless Tobacco: Never Used Alcohol Use Drinks/Week oz/Week Comments No Sex Assigned at Date Recorded Not on file as of this encounter Plan of Treatment Not on fileas of this encounter Visit Diagnoses Not on filein this encounter
--- OUTSIDE RECORDS SUMMARY | 2017-12-09 03:05 | XMS REPORT | Encounter Summary ---
Author Author [facility] Organization [facility] Address Unknown Phone Unavailable Care Team Providers Care Telephone Clerk Name Role Phone PCP Unavailable Reason for Visit * Reason Comments Labs Only CBC/BMP Encounter Details Date Type Department Care Team Description 11/18/2017 Documentation [facility] Mamie Woodard, [place] Labs Only (CBC/BMP ) [address] [facility] [address] [place] [address] Social History Tobacco Use Types [...] 13.2 Specimen Performing Laboratory Blood MAG LAB [address] [address] * BASIC METABOLIC PANEL (11/18/2017) Component Value Ref Range Sodium 139 Potassium 3.9 Chloride 104 CO2 25.0 Blood Urea Nitrogen 10 Creatinine 0.6 Glucose 276 (H) Calcium 9.0 eGFR Non 100 eGFR Anion Gap 14 Specimen Performing Laboratory Blood MAG LAB [address] [address] in this encounter Visit Diagnoses Diagnosis Coronary artery disease involving [place] coronary artery of [place] heart with unstable angina pectoris (HCC) Pre-procedure lab exam Pre-procedural laboratory examination
--- OUTSIDE RECORDS SUMMARY | 2017-12-09 03:05 | XMS REPORT | Encounter Summary ---
Author Author [facility] Organization [facility] Address Unknown Phone Unavailable Care Team Providers Care Correctional Food Service Supervisor Name Role Phone PCP Unavailable Reason for Visit * Reason Comments Procedure ELECTRIC RANGE PREPARER - ref by Dr. Hughes Encounter Details Date Type Department Care Team Description 11/12/2017 Telephone [facility] Cardiology Mamie Woodard RN Procedure (ELECTRIC RANGE PREPARER - ref by [address]) [facility] [address] [place] [address] Social History Tobacco Use Types Packs/Day Years Used Date Never Assessed Sex Assigned at Date Recorded Not on file as of this encounter Miscellaneous Notes * Telephone Encounter - Mamie Woodard RN - 11/12/2017 6:27 PM CDT Cath images received on CD from Dr. Hughes's office. Discussed plan with Dr. Cortes. Ruth to proceed with scheduling pt for ELECTRIC RANGE PREPARER attempt. Connected with patient and aria over [...] at 11/05/2017 7:41 AM CDT ----- Regarding: ELECTRIC RANGE PREPARER LAD - ref by Dr. Ellen Jovel mailing cath images on CD. Schedule pt for same day H&P with ELECTRIC RANGE PREPARER LAD, [facility]. Sent e-mail to Horace to review insurance info. in this encounter Plan of Treatment Not on fileas of this encounter Visit Diagnoses Not on filein this encounter
--- OUTSIDE RECORDS SUMMARY | 2017-12-09 03:05 | XMS REPORT | Encounter Summary ---
Author Author [facility] Organization [facility] Address Unknown Phone Unavailable Care Team Providers Care Jordan Man Name Role Phone Ashley Banegas MD PCP Reason for Visit * Auth/Cert (Routine) Status Reason Specialty Diagnoses / Referred By Referred To Procedures Contact Contact Encounter Details Date Type Department Care Team Description 11/23/2017 Surgery Cardiac Catheterization Arnulfo Cortes MD PERCUTANEOUS CORONARY Laboratory [address] [facility] ATHERECTOMY/ STENT [address] [facility] [address] PLACEMENT/ [place] [address] [place] [address] CHRONIC TOTAL OCCLUSION [phone] OF LEFT ANTERIOR DESCENDING ARTERY Social History [...] Date Bilateral carotid artery disease ([facility]) 11/17/2017 05/04/17 - Carotid U/S: mild 1-39% stenosis, nonobstructive disease bilaterally. Coronary artery disease involving [place] coronary artery of [place] heart with unstable angina pectoris ([facility]) 11/17/2017 03/04/17 - LHC: Total occlusion [...] 11/17/2017 PAD (peripheral artery disease) ([facility]) 11/17/2017 Type 2 diabetes mellitus with complication, with long-term current use of insulin ([facility]) 11/17/2017 Allergies: Fish containing products; Ketoprofen; [...] extraction on 11/11 and recent insulin adjustment. ASSOCIATE DENTIST, she has been taking Levemir insulin 88 [...] moderate dose correction factor with meals. The ems educator also met with the patient and [...] 97-144. She will resume Metformin at the ASSOCIATE DENTIST dose, only when she is eating regular [...] She has been on Lasix 40mg daily ASSOCIATE DENTIST but was instructed to stop this and [...] Active Problems * (Principal)Coronary artery disease involving [place] coronary artery of [place] heart with unstable angina pectoris [...] There was some faint left-to- left and plaeq-gw-qxhk collateralization of the apical segment of the [...] second obtuse marginal branch. There was some ycsj-ds-ponox collateralization of the posterolateral segment. 5. The [place] right coronary was visualized with [...] HOURS (8:00 AM - 4:30 PM): Call [phone] and asked to be transferred to your discharge attending physician. - AFTER BUSINESS HOURS (4:30 PM - 8:00 AM, on weekends, or holidays): Call [phone] and ask the compressor house operator to page the on-call doctor for the discharge attending physician. Discharging attending physician: ARNULFO CORTES [[id number]] Cardiac Diet Limiting unhealthy fats and cholesterol [...] home, you can call a dietitian at [phone]. Incision Care *Call if there is an increase in pain, swelling, or redness in your right groin or your gums. Take Tylenol for pain. *DO NOT soak groin incision in water. *NO tub baths, hot tubs, or swimming. *You may shower after discharge. [facility] is a gathering place for individuals, [...] please call . You can also visit [email or web address] for more information. Current Discharge Medication List START taking these medications Details spironolactone (ALDACTONE) 25 mg tablet Take 0.5 tablets by mouth daily. Take with food. Qty: 15 tablet, Refills: 5 PRESCRIPTION TYPE: Normal Associated Diagnoses: Coronary artery disease involving [place] coronary artery of [place] heart with unstable angina pectoris (HCC) CONTINUE these medications which have been CHANGED or REFILLED Details !! insulin aspart U-100 (NOVOLOG FLEXPEN) 100 unit/mL injection PEN Inject 10 Units under the skin three times daily with meals. Qty: 45 mL, Refills: 3 PRESCRIPTION TYPE: No Print Associated Diagnoses: Coronary artery disease involving [place] coronary artery of [place] heart with unstable angina pectoris (HCC) !! insulin aspart U-100 (NOVOLOG FLEXPEN) 100 unit/mL injection PEN Inject 0-14 Units under the skin three times daily with meals. Qty: 45 mL, Refills: 3 PRESCRIPTION TYPE: Normal Associated Diagnoses: Coronary artery disease involving [place] coronary artery of [place] heart with unstable angina pectoris (HCC) insulin detemir(+) (LEVEMIR) 100 unit/mL soln Inject 35 Units under the skin at bedtime daily. Qty: 10 mL, Refills: 12 PRESCRIPTION TYPE: No Print Associated Diagnoses: Coronary artery disease involving [place] coronary artery of [place] heart with unstable angina pectoris [...] 2017 2:00 PM CDT Pre-Op Nurse with [facility] ([facility]) [address] [facility] [address] December 01, 2017 2:30 PM CDT PAC Office Visit with PAC ROOM 6 Preoperative Assessment Clinic (--) [address] [facility] [address] Pending items needing follow up: as above [...] minutes Novolog is in the [employer] [place] pen. If your pre meal Blood sugar [...] artery disease involving three times daily with [place] coronary artery of meals. Plus 0-14 units [place] heart with on sliding scale. unstable angina pectoris (HCC) insulin detemir(+) Inject 26 Units under the 10 mL 12 12/08/2017 (LEVEMIR) 100 unit/mL skin at bedtime daily. solnIndications: Coronary artery disease involving [place] coronary artery of [place] heart with unstable angina pectoris [...] with food. tabletIndications: Coronary artery disease involving [place] coronary artery of [place] heart with unstable angina pectoris [...] with meals. PENIndications: Coronary artery disease involving [place] coronary artery of [place] heart with unstable angina pectoris (HCC) insulin aspart U-100 Inject 0-14 Units under 45 mL 3 11/25/2017 (NOVOLOG FLEXPEN) 100 the skin three times unit/mL injection daily with meals. PENIndications: Coronary artery disease involving [place] coronary artery of [place] heart with unstable angina pectoris (HCC) insulin detemir(+) Inject 35 Units under the 10 mL 12 11/25/2017 (LEVEMIR) 100 unit/mL skin at bedtime daily. solnIndications: Coronary artery disease involving [place] coronary artery of [place] heart with unstable angina pectoris [...] recently updated. Dena Gayle DDS, PhD Pager [phone] * Jennifer Elkins RN - 11/24/2017 12:04 [...] and provide further information. Italo Russo PA-C [id number] Associated attestation - Kenny Enrique MD - [...] Warren RN - 11/24/2017 10:09 AM CDT [id number]: Phone report given to Caroline PEARCE regarding pt to transfer care to [phone]. * Corrie Fuentes PA-C - 11/24/2017 8:21 AM CDT Formatting of this note may be different from the original. Cardiology Daily Progress Note Nimisha Clint Admission Date: 11/23/2017 Assessment/Plan: Principal Problem: Coronary artery disease involving [place] coronary artery of [place] heart with unstable angina pectoris [...] get some low readings on current regimen -ASSOCIATE DENTIST on Levemir insulin 88 units BID (early am, HS) and Novolog 75 units TID with meals and Metformin 1000mg BID. Dental Caries -Panorex xray 11/23/17 revealed erosions or caries involving the remaining maxillary teeth, sparing the residual left maxillary molar. Thin rind of lucency surrounding the right mandibular canine tooth, likely due to periodontal disease/gingivitis. 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 Dr. Cortes consulted CTS for evaluation for surgical revascularization after [facility] today revealed severe, multivessel CAD in [...] Reoperation: 3.351% CATH FINDINGS: Coronary Stenosis LAD--> FOOD AND BEVERAGE ASSISTANT Diag--> 80% proximal OM --> 70% ostial, 90% mid RCA--> 95% distal PMH: Past Medical History: Diagnosis Date Bilateral carotid artery disease ([facility]) 11/17/2017 05/04/17 - Carotid U/S: mild 1-39% stenosis, nonobstructive disease bilaterally. Coronary artery disease involving [place] coronary artery of [place] heart with unstable angina pectoris ([facility]) 11/17/2017 03/04/17 - LHC: Total occlusion [...] 11/17/2017 PAD (peripheral artery disease) ([facility]) 11/17/2017 Type 2 diabetes mellitus with complication, with long-term current use of insulin ([facility]) 11/17/2017 PSH: Past Surgical History: Procedure [...] Hospital Problems Diagnosis Coronary artery disease involving [place] coronary artery of [place] heart with unstable angina pectoris (HCC) 03/05/17 - [facility]: Total occlusion of the mid LAD, [...] artery. Normal LVEDP. 06/2015 - [facility]: 2.5 x 18 mm Resolute Integrity stent to mid circumflex, prox lesion is 40% stenosed, distal lesion 80%. Patent multiple stents in prox, mid, and distal LAD w/ mild in-stent restenosis. Patent stent in RCA w/ mild disease in distal RCA. 05/2015 [facility]: 3.5 x 12 mm & 2.75 x 24 mm Promus Premier overlapping stents to mid RCA. Patent stents in the LAD. Severe stenosis at distal LAD, 70% prox circumflex and 70-80% mid to distal circ/OM branch. [facility]: 2.5 x 24 mm and 2.5 x [...] re-operation, prolonged intubation, ARF requiring hemodialysis, CVA, [place], and possibly even . The patient understands, [...] of arrival for Thursday. Italo Russo PA-C [phone] Associated attestation - Kenny Enrique MD - [...] from date of service 11/23/2017. ALENA Richards ([id number]) Progress Notes Arnulfo Cortes MD (Physician) Cardiology [...] Noted Bilateral carotid artery disease ([facility]) 11/17/2017 05/04/17 - Carotid U/S: mild 1-39% stenosis, nonobstructive disease bilaterally. Coronary artery disease involving [place] coronary artery of [place] heart with unstable angina pectoris ([facility]) 11/17/2017 03/05/17 - [facility]: Total occlusion of the mid LAD, [...] 60%, normal LVEDP. 06/16/16 - [facility]: Severe in-stent restenosis in prox and [...] artery. Normal LVEDP. 06/2015 - [facility]: 2.5 x 18 mm Resolute Integrity stent to mid circumflex, prox lesion is 40% stenosed, distal lesion 80%. Patent multiple stents in prox, mid, and distal LAD w/ mild in-stent restenosis. Patent stent in RCA w/ mild disease in distal RCA. 05/2015 - [facility]: 3.5 x 12 mm & 2.75 x 24 mm Promus Premier overlapping stents to mid RCA. Patent stents in the LAD. Severe stenosis at distal LAD, 70% prox circumflex and 70-80% mid to distal circ/OM branch. - [facility]: 2.5 x 24 mm and 2.5 x 20 mm Promusto distal and proximal LAD, 50% prox circumflex, 70-80% mid to distal circumflex involving the proximal portion of OM1, 50-60% mid RCA, LV anterior wall hypokinetic. EF 40%. PAD (peripheral artery disease) ([facility]) 11/17/2017 Essential hypertension 11/17/2017 Mixed hyperlipidemia 11/17/2017 History of tobacco abuse 11/17/2017 Type 2 diabetes mellitus with complication, with long-term current use of insulin ([facility]) 11/17/2017 Past Surgical History: Procedure Laterality [...] Diagnoses Name Primary? Coronary artery disease involving [place] coronary artery of [place] heart with unstable angina pectoris (HCC) Yes Type 2 diabetes mellitus with complication, with long-term current use of insulin ([facility]) Assessment and Plan Coronary artery disease [...] AM CDT Associated Order(s): CARDIAC CATH REPORT [facility] at [facility] CARDIAC CATHETERIZATION REPORT Page 2 NIMISHA Condon : 1955 #: [id number] MR #/Billing ID #: [id number] / [id number] DATE: 11/23/2017 PARKING OFFICER: Arnulfo Cortes MD DICTATING PROVIDER: Arnulfo Cortes MD REFERRING PHYSICIAN: ASHLEY BANEGAS PROCEDURES PERFORMED: 1. Left heart catheterization. 2. Selective left and right coronary cineangiograms. PROCEDURE: Ms. Jaramillo is a 62-year-old female who presented with a history of coronary artery disease and recent cardiac catheterization suggesting chronic total occlusion of the mid LAD. 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 Moderate IV conscious sedation was monitored and administered by myself, nursing, and technical staff for a total duration of 30 minutes. The bilateral groins were then prepped and draped in typical fashion. We infiltrated the right groin with approximately 20 mL of 1% lidocaine and advanced a 5-Hungarian arterial sheath. Selective left and right coronary cineangiograms as well as left heart catheterization were performed utilizing a 5-Hungarian diagnostic coronary catheter. Intracoronary nitroglycerin was administered [...] There was some faint left-to- left and gkosv-oq-tiie collateralization of the apical segment of the [...] second obtuse marginal branch. There was some rclb-ly-fpiih collateralization of the posterolateral segment. 5. The [place] right coronary was visualized with [...] mid left anterior descending artery with faint vomt-tq-qxhf collaterals. b. 90% mid second obtuse marginal stenosis with a 70% ostial circumflex stenosis. c. 95% proximal posterior lateral stenosis. PLAN: We will consult Cardiothoracic Surgery for evaluation. MD MG Toth/Hakeem /[id number] cc: - ASHLEY BANEGAS in this encounter [...] this consult Dena Gayle DDS, PHD Pager [phone] * Jennifer Oshea, PORTIA - 11/24/2017 1:44 PM CDT Associated Order(s): CONSULT DIABETES NURSE EDUCATOR Formatting of this note may be different from the original. INPATIENT DIABETES EDUCATION TEAM Clinical Excellence Nursing Practice Reason for Consult: Other (Comment) Order comments: Poorly managed diabetes at home. Changing regimen Discussed Consult with Primary Team: Dr. Gutierrez, Diplomatic Courier, Aneta, bedside RN Patient may benefit from: referral to [facility] for Diabetes Education, [employer] to cover carb controlled/heart healthy diet, and [...] bedside. Educator explained to pt that the Diplomatic Courier who visited with pt earlier was changing pt's insulin dosing schedule to see if ASSOCIATE DENTIST insulin was really what was needed. Her [...] minutes Novolog is in the [employer] pen. If your pre meal Blood sugar [...] - Diabetes Education Nursing Clinical Excellence [facility] [email or web address] [phone] office [phone] pager * Terrance Mack MD - 11/24/2017 11:12 AM CDT Associated Order(s): CONSULT ENDOCRINOLOGY PHYSICIAN Formatting of this note may be different from the original. Endocrinology Consultation Today's Date: 11/24/2017 Admission Date: 11/23/2017 Reason for this consultation: Assessment: Diabetes mellitus-2: A1c 10.4 , uncontrolled ASSOCIATE DENTIST regimen: Levemir 88 units BID, Novolog 75 units after lunch and dinner, metformin 1000 mg BID Hypoglycemic episodes on this regimen: 2x/week after breakfast Follows up with for diabetes management: PCP at [place], [place] Diabetic-complications assessment: Retinopathy: Yes Peripheral neuropathy: [...] before meals and bedtime. We will request ems educator to come and talk to patient [...] Date Bilateral carotid artery disease ([facility]) 11/17/2017 05/04/17 - Carotid U/S: mild 1-39% stenosis, nonobstructive disease bilaterally. Coronary artery disease involving [place] coronary artery of [place] heart with unstable angina pectoris ([facility]) 11/17/2017 03/04/17 - [facility]: Total occlusion of the mid LAD, [...] 11/17/2017 PAD (peripheral artery disease) ([facility]) 11/17/2017 Type 2 diabetes mellitus with complication, with long-term current use of insulin ([facility]) 11/17/2017 Past Surgical History Past Surgical [...] clubbing, cyanosis or edema Skin: no rashes/lesions HOME AGENT: Grossly nonfocal Lab Review Point of Care [...] FREET4, FREEINDEX No results found for: FREET3, [id number], THYBINDGLB Eugenia Gutierrez MD Endocrinology Fellow PGY-5 [...] of a resident. Dena Gayle DDS Pager [phone] * Care Plan - Aneta Goodson - [...] MG/DL Specimen Performing Laboratory [facility] [address] [place] [id number] * BASIC METABOLIC PANEL (11/25/2017 4:07 AM) [...] Pharmacist for questions. Specimen Performing Laboratory Blood [facility] [address] [place] [address] * POC GLUCOSE (11/24/2017 9:33 PM) Component Value Ref Range Glucose, POC 131 (H) 70 - 100 MG/DL Specimen Performing Laboratory [facility] [address] [place] [address] * POC GLUCOSE (11/24/2017 6:36 PM) Component Value Ref Range Glucose, POC 97 70 - 100 MG/DL Specimen Performing Laboratory [facility] [address] [place] [address] * POC GLUCOSE (11/24/2017 5:23 PM) Component Value Ref Range Glucose, POC 105 (H) 70 - 100 MG/DL Specimen Performing Laboratory [facility] [address] [place] [address] * POC GLUCOSE (11/24/2017 5:10 PM) Component Value Ref Range Glucose, POC 119 (H) 70 - 100 MG/DL Specimen Performing Laboratory [facility] [address] [place] [address] * POC GLUCOSE (11/24/2017 12:19 PM) Component Value Ref Range Glucose, POC 318 (H) 70 - 100 MG/DL Specimen Performing Laboratory [facility] [address] [place] [address] * POC GLUCOSE (11/24/2017 10:41 AM) Component Value Ref Range Glucose, POC 333 (H) 70 - 100 MG/DL Specimen Performing Laboratory MAIN LAB [address] [place] [address] * POC GLUCOSE (11/24/2017 7:57 AM) Component Value Ref Range Glucose, POC 222 (H) 70 - 100 MG/DL Specimen Performing Laboratory MAIN LAB [address] [place] [address] * MAGNESIUM (11/24/2017 4:16 AM) Component Value Ref Range Magnesium 1.8 1.6 - 2.6 mg/dL Specimen Performing Laboratory Blood [facility] [address] [place] [address] * CBC (11/24/2017 4:16 AM) Component Value [...] [place] Specimen Performing Laboratory Blood [facility]IN [facility] [address] [place] [address] * BASIC METABOLIC PANEL (11/24/2017 4:16 AM) [...] Performing Laboratory Blood [facility] [address] [place] [address] * POC GLUCOSE (11/24/2017 1:17 AM) Component Value Ref Range Glucose, POC 212 (H) 70 - 100 MG/DL Specimen Performing Laboratory [facility] [address] [place] [address] * MRA HEAD WO CONTRAST (11/23/2017 9:39 [...] 62 years old, intracranial aneurysm. TECHNIQUE: 3D yxia-sj-uatdtvrqixuq of the [place] was performed without contrast. MRA [...] 62 years old, intracranial aneurysm. TECHNIQUE: 3D nfvd-ue-zikqvo images of the [place] was performed without contrast. MRA [...] 70 - 100 MG/DL Specimen Performing Laboratory [facility] [address] [place] [address] * POC GLUCOSE (11/23/2017 5:09 PM) Component Value Ref Range Glucose, POC 322 (H) 70 - 100 MG/DL Specimen Performing Laboratory [facility] [address] [place] [address] * CULTURE-URINE W/SENSITIVITY (11/23/2017 2:52 PM) Component Value Ref Range Battery Name URINE CULTURE Specimen Description URINE Special Requests NONE Culture <10,000 organisms/ml MIXED CONTAMINANTS Report Status FINAL 11/24/2017 Specimen Performing Laboratory Urine [facility] [address] [place] [address] * URINALYSIS MICROSCOPIC REFLEX TO CULTURE (11/23/2017 2:52 PM) Component Value Ref Range WBCs,UA PACKED 0 - 2 /HPF RBCs,UA 2-10 0 - 3 /HPF Comment,UA Urine submitted for reflex culture if criteria are met:WBC>10, positive nitrite and/or >=1+ leukocyte esterase. If quantity is not sufficient, an addendum will follow. MucousUA TRACE Squamous Epithelial Cells 2-5 0 - 5 Specimen Performing Laboratory Urine [facility] [address] [place] [address] * URINALYSIS DIPSTICK REFLEX TO CULTURE (11/23/2017 2:52 PM) Component Value Ref Range Color,UA YELLOW Turbidity,UA CLEAR CLEAR-CLEAR Specific [place]-Urine 1.050 (H) 1.003 - 1.035 pH,UA 5.0 5.0 - 8.0 Protein,UA NEG NEG-NEG Glucose,UA 3+ (A) NEG-NEG Ketones,UA NEG NEG-NEG Bilirubin,UA NEG NEG-NEG Blood,UA 1+ (A) NEG-NEG Urobilinogen,UA NORMAL NORM-NORMAL Nitrite,UA NEG NEG-NEG Leukocytes,UA 3+ (A) NEG-NEG Urine Ascorbic Acid, UA NEG NEG-NEG Specimen Performing Laboratory Urine [facility] [address] [place] [address] * PANOREX EXAM (11/23/2017 2:41 PM) Specimen [...] history: pre-op eval. Coronary artery disease involving [place] coronary artery of [place] heart with unstable angina pectoralis [...] history: pre-op eval. Coronary artery disease involving [place] coronary artery of [place] heart with unstable angina pectoralis [...] 0.57 E/E' ratio 11.29 CV ECHO PV RIDE OPERATOR STEVEN Flowers LV mass 203.43 66 - 150 g RWT 0.53 <=0.42 Cardiology Ultrasound Siemens [id number] Machine Left Ventricle Mass Index 114.93 44 [...] % FEV1-Pre 1.94 L FEV1-%Pred-Pre 83 % KTE0021-Mgm 2.73 L/sec TOR4810-%Pred-Pre 128 % VCSVC-Pre 2.44 L ICSVC-Pre 0.83 [...] Specimen Performing Laboratory [facility] [address] [place] [address] Narrative Clinical history:->pre-op eval Is this a pre-surgical evaluation?->Yes * POC GLUCOSE (11/23/2017 1:53 PM) Component Value Ref Range Glucose, POC 194 (H) 70 - 100 MG/DL Specimen Performing Laboratory MAIN LAB [address] [place] [address] * TYPE & SCREEN (NOT CROSSMATCH ELIGIBLE) (11/23/2017 12:50 PM) Component Value Ref Range ABO/RH(D) A POS Antibody Screen NEG Blood Component Type RED CELL GROUP Specimen Performing Laboratory Blood, venous - Blood MAIN LAB [address] [place] [address] * PLAVIX RESISTANCE (PLATELETWORKS) (11/23/2017 12:18 PM) Component Value Ref Range Platelet Inhibition 3 0 - 15 % Comment: Normal ADP inhibition should be less than 15%. Therapeutic (Plavix and other P2Y 12) levels should be greater than 30%. Specimen Performing Laboratory Blood MAIN [facility] [address] [place] [address] * HEMOGLOBIN A1C (11/23/2017 11:32 AM) Component Value Ref Range Hemoglobin A1C 10.4 (H) 4.0 - 6.0 % Comment: The ADA recommends that most patients with type 1 and type 2 diabetes maintain an A1c level <7%. Specimen Performing Laboratory Blood [facility]IN [facility] [address] [place] [address] * PTT (APTT) (11/23/2017 11:32 AM) Component Value Ref Range APTT 25.0 21.0 - 39.0 SEC Specimen Performing Laboratory [facility]IN [facility] [address] [place], [place] [id number] * PROTIME INR (PT) (11/23/2017 11:32 AM) Component Value Ref Range INR 1.0 0.8 - 1.2 Specimen Performing Laboratory Blood MAIN [facility] [address] [place] [address] * BNP (B-TYPE NATRIURETIC PEPTI) (11/23/2017 11:32 AM) Component Value Ref Range B Type Natriuretic 345.0 (H) 0 - 100 PG/ML Peptide Specimen Performing Laboratory Blood MAIN LAB [address] [place] [address] * POC GLUCOSE (11/23/2017 11:29 AM) Component Value Ref Range Glucose, POC 219 (H) 70 - 100 MG/DL Specimen Performing Laboratory [facility] [address] [place] [address] * CARDIAC CATH REPORT (11/23/2017 11:10 AM) Specimen Performing Laboratory OTHER OUTSIDE LAB Procedure Note Arnulfo Cortes MD - 11/23/2017 11:10 AM CDT [facility] CARDIAC CATHETERIZATION REPORT Page 2 NIMISHA Condon : 1955 KU#: [id number] MR #/Billing ID #: [id number] / [id number] DATE: 11/23/2017 PARKING OFFICER: Arnulfo Cortes MD DICTATING PROVIDER: Arnulfo Cortes MD REFERRING PHYSICIAN: ASHLEY BANEGAS PROCEDURES PERFORMED: 1. Left heart catheterization. 2. Selective left and right coronary cineangiograms. PROCEDURE: Ms. Jaramillo is a 62-year-old female who presented with a history of coronary artery disease and recent cardiac catheterization suggesting chronic total occlusion of the mid LAD. 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 Moderate IV conscious sedation was monitored and administered by myself, nursing, and technical staff for a total duration of 30 minutes. The bilateral groins were then prepped and draped in typical fashion. We infiltrated the right groin with approximately 20 mL of 1% lidocaine and advanced a 5-Hungarian arterial sheath. Selective left and right coronary cineangiograms as well as left heart catheterization were performed utilizing a 5-Hungarian diagnostic coronary catheter. Intracoronary nitroglycerin was administered [...] There was some faint left-to- left and qjhjy-iq-zzka collateralization of the apical segment of the [...] second obtuse marginal branch. There was some utqc-pz-tdsjv collateralization of the posterolateral segment. 5. The [place] right coronary was visualized with [...] mid left anterior descending artery with faint nakw-hx-lann collaterals. b. 90% mid second obtuse marginal stenosis with a 70% ostial circumflex stenosis. c. 95% proximal posterior lateral stenosis. PLAN: We will consult Cardiothoracic Surgery for evaluation. MD MG Toth/Hakeem /[id number] cc: - ASHLEY BANEGAS * POC GLUCOSE (11/23/2017 9:49 AM) Component Value Ref Range Glucose, POC 272 (H) 70 - 100 MG/DL Specimen Performing Laboratory MAIN LAB [address] [place] [address] * POC GLUCOSE (11/23/2017 8:48 AM) Component Value Ref Range Glucose, POC 297 (H) 70 - 100 MG/DL Specimen Performing Laboratory MAIN LAB [address] [place] [address] * LIPID PROFILE (11/23/2017 8:48 AM) Component [...] Laboratory Blood [facility] [address] [place] [address] in this encounter Visit Diagnoses Not on [...] EF is <40%, contact CCL Charge Nurse [phone]) before initiating fluid. sodium chloride 0.9 % [...]
--- OUTSIDE RECORDS SUMMARY | 2017-12-09 03:05 | XMS REPORT | Encounter Summary ---
Author Author [facility] Organization [facility] Address Unknown Phone Unavailable Care Team Providers Care Business Solutions Architect Name Role Phone PCP Unavailable Reason for Visit * Reason Comments Precertification Medicare Encounter Details Date Type Department Care Team Description 11/16/2017 Documentation [facility] Horace Correa, RN Precertification [address] (Medicare) [facility] [address] [place] [address] Social History Tobacco Use Types Packs/Day Years [...]
[2017-12-09] MEDS ORDERED: morphine INJ 10 MG/ML 1ML (SYR OR VIAL) IVP STA (03:07)
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
[2017-12-09] MEDS ORDERED: RT-ALBUTEROL/IPRATROPIUM 3 ML (DUONEB) VIAL INH PRN (04:30)
[2017-12-09] MEDS ORDERED: morphine INJ 4 MG/ML 1 ML (VIAL/SYRINGE) IV PRN (06:00)
--- NOTE | 2017-12-09 07:08 | Diagnostic Imaging Report ---
EXAMINATION: Chest radiograph, portable AP view. DATE: December 09, 2017 at 0141 hours. INDICATION: 62-year-old female, shortness of breath. COMPARISON: November 04, 2017. FINDINGS: There are median sternotomy wires. Stable overall appearance of the cardiomediastinal silhouette. There is no identified pneumothorax. There is obscuration of visualization of the left hemidiaphragm which is a change since comparison exam. Lung volumes are somewhat low. IMPRESSION: 1. Obscuration of visualization of the left hemidiaphragm which may potentially reflect small effusion, atelectasis, and/or infiltrate. 2. Somewhat low lung volumes. Dictated by: Dictated on workstation # [id number]
[2017-12-09] MEDS: inSUlin ASPART (NovoLOG) 1 UNIT/0.01 ML (CHARGE PER UNIT) SC SCH ×2 (07:13→11:54)
[2017-12-09] MEDS: RT-ALBUTEROL/IPRATROPIUM 3 ML (DUONEB) VIAL INH SCH ×3 (07:27→14:38)
[2017-12-09] MEDS ORDERED: FUROSEMIDE 40 MG/4 ML INJ (LASIX) IV ONE (08:00)
[2017-12-09] MEDS ORDERED: methylPREDNISolone 125 MG (Solu-MEDROL) VIAL IV SCH (08:15)
[2017-12-09 08:36] LABS: BASOPHILS % (AUTO) 0 % (0-10); EOSINOPHILS % (AUTO) 0 % (0-10); HEMATOCRIT 34 % (35-52); LYMPHOCYTES # (AUTO) 0.8 X 10^3 (1.0-4.0); LYMPHOCYTES % (AUTO) 11 % (12-44); MEAN CORPUSCULAR HEMOGLOBIN 29 PG (25-34); MEAN CORPUSCULAR HGB CONC 32 G/DL (32-36); MEAN CORPUSCULAR VOLUME 89 FL (80-99); MEAN PLATELET VOLUME 10.3 FL (7.4-10.4); MONOCYTES # (AUTO) 0.1 X 10^3 (0.0-1.0); MONOCYTES % (AUTO) 1 % (0-12); NEUTROPHILS # (AUTO) 5.8 X 10^3 (1.8-7.8); NEUTROPHILS % (AUTO) 87 % (42-75); PLATELET COUNT 282 10^3/uL (130-400); RED BLOOD COUNT 3.81 10^6/uL (4.35-5.85); RED CELL DISTRIBUTION WIDTH 12.9 % (10.0-14.5); WHITE BLOOD COUNT 6.6 10^3/uL (4.3-11.0)
[2017-12-09 08:56] LABS: ALANINE AMINOTRANSFERASE 12 U/L (0-55); ALBUMIN 3.9 GM/DL (3.2-4.5); ALKALINE PHOSPHATASE 85 U/L (40-136); BILIRUBIN,TOTAL 0.8 MG/DL (0.1-1.0); BUN/CREATININE RATIO 15; CALCIUM 9.9 MG/DL (8.5-10.1); CARBON DIOXIDE 25 MMOL/L (21-32); CHLORIDE 96 MMOL/L (98-107); CREATININE SERUM 0.84 MG/DL (0.60-1.30); GFR ESTIMATED > 60; GLUCOSE 294 MG/DL (70-105); POTASSIUM 4.2 MMOL/L (3.6-5.0); SODIUM 137 MMOL/L (135-145); TOTAL PROTEIN 8.2 GM/DL (6.4-8.2)
[2017-12-09 09:03] LABS: CARDIAC PROFILE 2 < 0.30 NG/ML (<0.30)
--- NOTE | 2017-12-09 09:09 | Diagnostic Imaging Report ---
INDICATION: Cough. FINDINGS: Exam compared with 12/09/2017 earlier this same date. Lower lobe infiltrates or atelectatic changes greater left have improved. There are likely small pleural effusions unchanged. The heart size stable. Upper lobe pulmonary vascularity not substantially distended. IMPRESSION: Improvements in basilar pleural parenchymal opacities with no adverse development. Dictated by: Dictated on workstation # [id number]
[2017-12-09 09:20] LABS: EOSINOPHILS % (MANUAL) 1 %; LYMPHOCYTES % (MANUAL) 7 %; MONOCYTES % (MANUAL) 2 %; NEUTROPHILS % (MANUAL) 90 %
[2017-12-09] MEDS ORDERED: TRAM50TA2 PO (09:33)
[2017-12-09] MEDS ORDERED: METO-387 PO (09:33)
[2017-12-09] MEDS ORDERED: SENN-40 PO (09:33)
[2017-12-09] MEDS ORDERED: METF-479 PO (09:33)
[2017-12-09] MEDS ORDERED: NITR0.4T39 SL (09:33)
[2017-12-09] MEDS ORDERED: ATOR40TA70 PO (09:33)
[2017-12-09] MEDS ORDERED: EVOL140P SQ (09:33)
[2017-12-09] MEDS ORDERED: SPIR25TA PO (09:33)
[2017-12-09] MEDS ORDERED: CHOL10003 PO (09:33)
[2017-12-09] MEDS ORDERED: OXYC-471 PO (09:33)
[2017-12-09] MEDS ORDERED: LISI-556 PO (09:33)
[2017-12-09] MEDS ORDERED: CALC500T3 PO (09:33)
--- NOTE | 2017-12-09 09:33 | History & Physical-Hospitalist ---
History of Present Illness HPI/Chief Complaint CC: Dyspnea HPI: This is a 62-year-old white female of Dr. Parker at [facility] who just was discharged from from coronary artery bypass grafting and there was a question of whether or not she was to be discharged on oxygen but she returned home became very dyspneic presented to the emergency room found to have volume overload and hypoxia. Currently an echocardiogram is being performed and Dr. Monzon is consulted. Apparently her has been very dissatisfied disgruntled regarding the way the ER treated him and her new medication list of which he has made it clear that no changes to her medications will be done without his direct approval. Patient does not wear oxygen at home currently she quit smoking last January. At this current time echo is being performed she does not really participate in the conversation and appears to be withdrawn. 2 weeks ago she did have 16 teeth removed in preparation for bypass surgery so she has poor reserve due to major surgery back to back the last 2 weeks. I did recommend inpatient rehabilitation evaluation and that will be completed soon. wildlife technician will evaluate and reconcile all home meds. Source: family Exam Limitations: other (patient appears withdrawn and refuses to participate in conversation while ECHO performed) Date Seen 12/09/17 Time Seen by Provider: 09:00 Attending Physician Cherri Wilson Holly R MD Referring Physician Date of Admission December 09, 2017 at 02:20 Home Medications & Allergies Home Medications Reviewed patient Home Medication Reconciliation performed by pharmacy medication reconciliations civil design technician and/or nursing. Patients Allergies have been reviewed. Allergies Allergies Coded Allergies Fish Containing Products (Unverified Allergy, Unknown, 05/17/15) FROM UNCODED ALLERGIES ketoprofen (Verified Allergy, Unknown, 03/01/08) mushroom (Unverified Allergy, Unknown, 05/17/15) FROM UNCODED ALLERGIES Past Mpkficm-Ulopne-Tadfpx Hx Past Med/Social Hx: Reviewed Nursing Past Med/Soc Hx, Reviewed and Corrections made Patient Social History Marrital Status: Employed/Student: unemployed Alcohol Use: Denies Use Recreational Drug Use: No Smoking Status: Former Smoker Former Smoker, Quit: Jan 27, 2017 Type Used: Cigarettes 2nd Hand Smoke Exposure: Yes ( IS HEAVY SMOKER) Physical Abuse Screen: No Sexual Abuse: No Recent Foreign Travel: No Contact w/other who traveled: No Recent Hopitalizations: Yes (CABG AT [facility]--DISMISSED 12/08/17 ) Recent Infectious Disease Expo: No Immunizations Up To Date Tetanus Booster (TDap): Less than 5yrs Pediatric: No Date of Pneumonia Vaccine: May 11, 2015 Date of Influenza Vaccine: Apr 12, 2016 Seasonal Allergies Seasonal Allergies: No Past Medical History Surgeries: Cardiac, CABG, Coronary Stent, Gallbladder, Orthopedic, Rectal, Tonsillectomy, 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 Currently Using CPAP: No Currently Using BIPAP: No Cardiac: Coronary Artery Disease, Heart Attack, High Cholesterol, Hypertension Neurological: Neuropathy, Stroke, TIA 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: No Sexually Transmitted Disease: No HIV/AIDS: No Female 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 Disorders: Denies 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, Menopausal Gastrointestinal: Gastroesophageal Reflux, Hemorrhoids, Ulcer Musculoskeletal: Arthritis Endocrine: Diabetes, Insulin dep Are Your Blood Sugars Over 250: No Cancer: Cervical Did You Recieve Any Treatments: Yes What Type of Treatment Did You: Surgical Intervention Psychosocial: Anxiety History of Blood Disorders: No Family History Alcoholism Arthritis Asthma Cardiovascular disease Cataracts Colon cancer Completed stroke Coronary thrombosis Diabetes mellitus Gastroenteritis Glaucoma Headache disorder Hypertension Kidney disease Psychosocial problem Respiratory disorder Seizure disorder Severe allergy Thyroid disease Visual disorder Heart Disease, Hypertension Review of Systems Constitutional: see HPI, malaise, weakness EENTM: no symptoms reported Respiratory: dyspnea on exertion, short of breath, wheezing Cardiovascular: no symptoms reported Gastrointestinal: no symptoms reported Genitourinary: no symptoms reported Musculoskeletal: no symptoms reported Skin: no symptoms reported Psychiatric/Neurological: Depressed All Other Systems Reviewed Negative Unless Noted: Yes Physical Exam Physical Exam Vital Signs Vital Signs - First Documented 12/09/17 00:53 Temp 97.6 Pulse 91 Resp 17 B/P (MAP) 150/92 (111) Pulse Ox 96 O2 Delivery Room Air O2 Flow Rate 3.00 Capillary Refill : Less Than 3 Seconds General Appearance: No Apparent Distress, WD/WN, Chronically ill Eyes: Bilateral Eye Normal Inspection, Bilateral Eye PERRL HEENT: PERRL/EOMI, Normal ENT Inspection, Pharynx Normal Neck: Full Range of Motion, Normal Inspection, Non Tender, Supple, Carotid Bruit Respiratory: Chest Non Tender, Lungs Clear, Normal Breath Sounds, No Accessory Muscle Use, No Respiratory Distress Cardiovascular: Regular Rate, Rhythm, No Edema, No Gallop, No JVD, No Murmur, Normal Peripheral Pulses Gastrointestinal: Normal Bowel Sounds, No Organomegaly, No Pulsatile Mass, Non Tender, Soft Back: Normal Inspection, No CVA Tenderness, No Vertebral Tenderness Extremity: Normal Capillary Refill, Normal Inspection, Normal Range of Motion, Non Tender, No Calf Tenderness, No Pedal Edema Neurologic/Psychiatric: Alert, Oriented x3, No Motor/Sensory Deficits, Depressed Affect Skin: Normal Color, Warm/Dry Lymphatic: No Adenopathy Results Results/Procedures Labs Laboratory Tests 12/09/17 00:56 12/09/17 08:15 Patient resulted labs reviewed. Assessment/Plan Admission Diagnosis Assessment: Dyspnea with hypoxia Severe debility following coronary artery bypass grafting Plan: IRF Home meds ECHO Check Dr Monzon recs Admission Status: Observation Diagnosis/Problems Diagnosis/Problems (1) CHF (congestive heart failure) Status: Acute Assessment & Plan: Check ECHO and Dr Monzon notes Qualifiers: Heart failure type: unspecified Heart failure chronicity: unspecified Qualified Codes: I50.9 - Heart failure, unspecified (2) Former smoker Status: Chronic Assessment & Plan: Maintain cessation (3) Weakness Status: Acute Assessment & Plan: IRF (4) Hx of CABG Status: Chronic (5) Debility Status: Chronic Assessment & Plan: IRF consult (6) COPD (chronic obstructive pulmonary disease) Status: Chronic Assessment & Plan: O2 evaluation Qualifiers: COPD type: unspecified COPD Qualified Codes: J44.9 - Chronic obstructive pulmonary disease, unspecified (7) Coronary artery disease Status: Chronic Qualifiers: Coronary Disease-Associated Artery/Lesion type: [place] artery [place] vs. transplanted heart: [place] heart Associated angina: with stable angina Qualified Codes: I25.118 - Atherosclerotic heart disease of [place] coronary artery with other forms of angina pectoris (8) Dental caries Status: Chronic Assessment & Plan: s/p extraction 16 teeth 2 weeks ago Clinical Quality Measures DVT/VTE Risk/Contraindication: Risk Factor Score Per Nursin RFS Level Per Nursing on Admit: 4+=Very High CHERRI WILSON DO December 09, 2017 09:33
[2017-12-09] MEDS ORDERED: ACET-2267 PO (09:44)
[2017-12-09] MEDS ORDERED: oxyCODONE/APAP 5/325MG (PERCOCET 5) TABLET PO PRN (10:30)
[2017-12-09] MEDS ORDERED: NON-FORMULARY MEDICATION 1 EA EA (Calcium Carbonate 500 MG) PO PRN (10:30)
[2017-12-09] MEDS ORDERED: NON-FORMULARY MEDICATION 1 EA EA (Acetaminophen (Tylenol Extra Strength) 1,000 MG) PO PRN (10:30)
[2017-12-09] MEDS ORDERED: NITROGLYCERIN 0.4 MG SL TABS BTL 25'S SL PRN (10:30)
[2017-12-09] MEDS ORDERED: ACETAMINOPHEN 500 MG TAB (TYLENOL) PO PRN (10:45)
[2017-12-09] MEDS ORDERED: inSUlin ASPART (NovoLOG) 1 UNIT/0.01 ML (CHARGE PER UNIT) SC SCH (11:00)
[2017-12-09] MEDS ORDERED: CALCIUM CARBONATE 500 MG (TUMS) TAB.CHEW PO PRN (11:00)
[2017-12-09] MEDS ORDERED: ASPIRIN E.C. 81 MG (ECOTRIN) TAB PO SCH (11:00)
[2017-12-09] MEDS ORDERED: SPIRONOLACTONE 25 MG (ALDACTONE) TAB PO SCH (11:00)
[2017-12-09] MEDS ORDERED: INSULIN VIAL ASPART for PUMP 100 UNIT/ML VIAL SQ SCH (11:00)
[2017-12-09] MEDS ORDERED: lisINopril 5 MG (PRINIVIL) TABLET PO SCH (11:00)
--- NOTE | 2017-12-09 13:18 | Consultation-Cardiology ---
HPI-Cardiology Cardiology Consultation Date of Consultation 12/09/17 Date of Admission Time Seen by Provider: 13:14 Indication: Shortness of breath HPI 62 years old lady with history of coronary artery disease, extensive disease, referred to for evaluation of high risk intervention, was not successful subsequently had CABG 3, patient was discharged home yesterday from . Went home and felt more short of breath. Came into the emergency room for evaluation , she is feeling better at this time, still having some dyspnea, chest pain from the incision. No palpitation, no syncope or near syncopal episodes. No claudications. Home Medications & Allergies Allergies: Coded Allergies: Fish Containing Products (Unverified Allergy, Unknown, 05/17/15) FROM UNCODED ALLERGIES ketoprofen (Verified Allergy, Unknown, 03/01/08) mushroom (Unverified Allergy, Unknown, 05/17/15) FROM UNCODED ALLERGIES Home Medication List Reviewed: Yes LRO-Xuzlny-Obcgwm Hx Patient Social History Marital Status: Employed/Student: unemployed Alcohol Use: Denies Use Recreational Drug Use: No Smoking Status: Former Smoker Type Used: Cigarettes 2nd Hand Smoke Exposure: Yes ( IS HEAVY SMOKER) Recent Foreign Travel: No Recent Infectious Disease Expo: No Recent Hopitalizations: Yes (CABG AT --DISMISSED 12/08/17 ) Physical Abuse Screen: No Sexual Abuse: No Immunizations Up To Date Tetanus Booster (TDap): Less than 5yrs Date of Pneumonia Vaccine: May 11, 2015 Date of Influenza Vaccine: Apr 12, 2016 Past Medical History Past medical history is discussed below Family Medical History Significant Family History: Heart Disease, Hypertension Family History: Alcoholism Arthritis Asthma Cardiovascular disease Cataracts Colon cancer Completed stroke Coronary thrombosis Diabetes mellitus Gastroenteritis Glaucoma Headache disorder Hypertension Kidney disease Psychosocial problem Respiratory disorder Seizure disorder Severe allergy Thyroid disease Visual disorder Constitutional: see HPI, malaise, weakness EENTM: see HPI, no symptoms reported Respiratory: see HPI, cough, dyspnea on exertion; No hemoptysis; orthopnea; No phlegm; short of breath; No stridor, No wheezing, No other Cardiovascular: see HPI, chest pain; No edema, No Hx of Intervention, No palpitations, No syncope, No vascular heart diseas, No other Gastrointestinal: no symptoms reported, see HPI Genitourinary: no symptoms reported, see HPI Musculoskeletal: no symptoms reported, see HPI Skin: see HPI Psychiatric/Neurological: No Symptoms Reported, See HPI Reviewed Test Results Reviewed Test Results Lab Laboratory Tests Test 12/09/17 00:56 12/09/17 05:12 12/09/17 08:15 12/09/17 11:37 Range/Units White Blood Count 7.6 6.6 4.3-11.0 10^3/uL Red Blood Count 3.35 L 3.81 L 4.35-5.85 10^6/uL Hemoglobin 9.9 L 11.0 L 11.5-16.0 G/DL Hematocrit 30 L 34 L 35-52 % Mean Corpuscular Volume 89 89 80-99 FL Mean Corpuscular Hemoglobin 30 29 25-34 PG Mean Corpuscular Hemoglobin Concent 33 32 32-36 G/DL Red Cell Distribution Width 12.7 12.9 10.0-14.5 % Platelet Count 270 282 130-400 10^3/uL Mean Platelet Volume 10.2 10.3 7.4-10.4 FL Neutrophils (%) (Auto) 57 87 H 42-75 % Lymphocytes (%) (Auto) 29 11 L 12-44 % Monocytes (%) (Auto) 9 1 0-12 % Eosinophils (%) (Auto) 5 0 0-10 % Basophils (%) (Auto) 0 0 0-10 % Neutrophils # (Auto) 4.3 5.8 1.8-7.8 X 10^3 Lymphocytes # (Auto) 2.2 0.8 L 1.0-4.0 X 10^3 Monocytes # (Auto) 0.7 0.1 0.0-1.0 X 10^3 Eosinophils # (Auto) 0.4 H 0.0 0.0-0.3 10^3/uL Basophils # (Auto) 0.0 0.0 0.0-0.1 10^3/uL Prothrombin Time 14.6 12.2-14.7 SEC INR Comment 1.1 0.8-1.4 Activated Partial Thromboplast Time 29 24-35 SEC Sodium Level 138 137 135-145 MMOL/L Potassium Level 4.2 4.2 3.6-5.0 MMOL/L Chloride Level 100 96 L 98-107 MMOL/L Carbon Dioxide Level 25 25 21-32 MMOL/L Anion Gap 13 16 H 5-14 MMOL/L Blood Urea Nitrogen 9 13 7-18 MG/DL Creatinine 0.70 0.84 0.60-1.30 MG/DL Estimat Glomerular Filtration Rate > 60 > 60 BUN/Creatinine Ratio 13 15 Glucose Level 140 H 294 H 70-105 MG/DL Calcium Level 9.3 9.9 8.5-10.1 MG/DL Magnesium Level 1.6 L 1.8-2.4 MG/DL Total Bilirubin 0.8 0.8 0.1-1.0 MG/DL Aspartate Amino Transf (AST/SGOT) 17 17 5-34 U/L Alanine Aminotransferase (ALT/SGPT) 10 12 0-55 U/L Alkaline Phosphatase 72 85 40-136 U/L Total Creatine Kinase 34 29-168 U/L Creatine Kinase MB 1.1 <6.6 NG/ML Troponin I < 0.30 < 0.30 <0.30 NG/ML B-Type Natriuretic Peptide 574.8 H <100.0 PG/ML Total Protein 6.9 8.2 6.4-8.2 GM/DL Albumin 3.4 3.9 3.2-4.5 GM/DL Glucometer 209 H 397 H 70-110 MG/DL Neutrophils % (Manual) 90 % Lymphocytes % (Manual) 7 % Monocytes % (Manual) 2 % Eosinophils % (Manual) 1 % Basophilic Stippling SLIGHT Physical Exam Vital Signs Vital Signs - First Documented 12/09/17 00:53 Temp 97.6 Pulse 91 Resp 17 B/P (MAP) 150/92 (111) Pulse Ox 96 O2 Delivery Room Air O2 Flow Rate 3.00 Capillary Refill : Less Than 3 Seconds General Appearance: No Apparent Distress, WD/WN Eyes: Bilateral Eye Normal Inspection, Bilateral Eye PERRL, Bilateral Eye EOMI HEENT: PERRL/EOMI, TMs Normal, Normal ENT Inspection, Pharynx Normal Neck: Full Range of Motion, Normal Inspection, Non Tender, Supple, Carotid Bruit Respiratory: Chest Non Tender, Lungs Clear, Normal Breath Sounds, No Accessory Muscle Use, No Respiratory Distress Cardiovascular: Regular Rate, Rhythm, No Edema, No Gallop, No JVD, No Murmur, Normal Peripheral Pulses, Systolic Murmur Gastrointestinal: Normal Bowel Sounds, No Organomegaly, No Pulsatile Mass, Non Tender, Soft Back: Normal Inspection, No CVA Tenderness, No Vertebral Tenderness Extremity: Normal Capillary Refill, Normal Inspection, Normal Range of Motion, Non Tender, No Calf Tenderness, No Pedal Edema Neurologic/Psychiatric: Alert, Oriented x3, No Motor/Sensory Deficits, Normal Mood/Affect Skin: Normal Color, Warm/Dry Lymphatic: No Adenopathy A/P-Cardiology Admission Diagnosis Shortness of breath Coronary artery disease Hypertension Hyperlipidemia Assessment/Plan Shortness of breath with elevated BNP, normal LV function by echocardiogram. No pulmonary edema. Elevated BNP value is secondary to open heart surgery. No signs of congestive heart failure. Chest pain, mainly muscular skeletal at the surgical site. Coronary artery disease, multiple intervention in the past, 2 stents to the LAD Promus Premier 2.524 and 2.520 done on May 15, 2015, 2 stents Promus Premier 3.512 and 2.7524 in the midright coronary artery done on May 16, 2015, another cath on June 2016, Resolute Intergrity stent 2.5x18 mm to Lcx , cardiac catheterization showed severe in-stent restenosis in the LAD underwent cutting balloon the balloon angioplasty, severe stenosis at the distal right coronary artery underwent primary stenting, underwent another cardiac catheterization in October 2017 showing multivessel disease, referred to for high risk intervention which was unsuccessful subsequently patient had CABG 3 done on December 02, 2017, she was discharged home yesterday. History of cellulitis of the right groin after the procedure underwent IND. Full recovery. Hypertension, good control at this time. Continue to monitor Hyperlipidemia, restart home medications and monitor Tobaccoism, patient is smoking again, she was encouraged to stop smoking. Diabetes mellitus, followed and managed by primary care physician History of syncope, no further syncopal episodes were reported Noncompliance with medication, educated about the importance of compliance with medication. Clinical Quality Measures DVT/VTE Risk/Contraindication: Risk Factor Score Per Nursin RFS Level Per Nursing on Admit: 4+=Very High FABY CHANDLER MD December 09, 2017 13:18
[2017-12-09] MEDS ORDERED: FURO-125 PO (13:21)
--- NOTE | 2017-12-09 14:16 | Occupational Therapy Eval ---
OT Evaluation-General/PLF Medical Diagnosis Admission Date December 09, 2017 at 02:20 Medical Diagnosis: Dyspnea with hypoxia Onset Date: December 09, 2017 Therapy Diagnosis Therapy Diagnosis: weakness, debility Height/Weight Height (Feet): 5 Height (Inches): 2.00 Weight (Pounds): 158 Weight (Ounces): 14.4 Precautions Precautions/Isolations: Fall Prevention, Standard Precautions Comments Pt underwent a CABG on 12/02/17. Sternal and cardiac precautions. Weight Bear Status Weight Bearing Restriction: Weight Bearing/Tolerated Referral Referral Reason: Evaluation/Treatment Medical History Pertinent Medical History: CAD, HTN Additional Medical History Pt had a CABG on 12/02 at [facility]. Pt was d/c to home on 12/08, where she became dyspneic and presented to the ED with hypoxia and volume overload. Social History Home: Single Level Current Living Status: Spouse Entry Into Home: Stairs Without Railing Steps Into Home: 3 ADL-Prior Level of Function ADL PLOF Comments Prior to recent CABG, the pt was independent without need for UE support for all ADLs and functional mobility. Pt was also independent with all IADLs. DME/Equipment Comments Pt has a personal 4WW in place. Drive Self: No OT Current Status Subjective Pt willing to participate with OT eval, however pt and her state that they are planning on returning to home this date. They have plans to attend OP therapy services. Pain Numeric Pain Scale: 0-No Pain Current Upper Extremity ROM Pt's UE ROM WNL, while maintaining sternal precautions. Upper Extremity Strength Did not assess UE strength due to sternal precautions. ADL-Treatment Functional [place] Measure 0=Not Assessed/NA 4=Minimal Assistance 1=Total Assistance 5=Supervision or Setup 2=Maximal Assistance 6=Modified [place] 3=Moderate Assistance 7=Complete IndependenceIRFPAI Quality Coding Scale 6 Independent with activity with or without an assistive device 5 Patient requires set up or clean up by helper. Patient completes activity by themselves 4 Supervision or touching assist (CGA). [place] provide cues , steadying assist 3 The helper provides less than half the effort to complete the activity 2 The helper provides more than half the effort to complete the activity 1 Dependent. The helper does all the effort to complete an activity 7 Patient refused to complete or attempt activity 9 The patient did not perform the activity before the current illness or injury 88 Not attempted due to Medical conditions or safety concerns Grooming (FIM): 6 Upper Body Dressing (FIM): 5 Lower Body Dressing (FIM): 5 Toileting (FIM): 5 Transfers (B, C, W/C) (FIM): 5 Toilet/Commode Transfer (FIM): 5 Pt required verbal cues for proper transfer techniques and education regarding appropriate method for donning/doffing shirt to maintain sternal precautions. Pt's present and is aware of all of her precautions. Pt and her are able to verbalize sternal precautions. Other Treatments Pt agreed to participate in dynamic standing balance training through ambulation with 4WW. Pt required verbal cues to maintain sternal precautions through not pushing down through 4WW during mobility. Education OT Patient Education: Correct positioning, Energy conservation, Instructions to caregiver, Modified ADL techniques, Purpose of tx/functional activities, Reviewed precautions, Safety issues, Transfer techniques Teaching Recipient: Patient, Primary Caregiver Teaching Methods: Demonstration, Discussion Response to Teaching: Verbalize Understanding, Return Demonstration OT Short Term Goals Short Term Goals Time Frame: Dec 11, 2017 Grooming(FIM): 6 Upper Body Dressing(FIM): 6 Lower Body Dressing(FIM): 6 Toileting(FIM): 6 Transfers (B,C,W/C) (FIM): 6 Toilet/Commode Transfer(FIM): 6 1=Demonstrate adherence to instructed precautions during ADL tasks. 2=Patient will verbalize/demonstrate understanding of assistive devices/ modifications for ADL. 3=Patient will improve strength/tolerance for activity to enable patient to perform ADL's. OT Skilled Nursing Goals Skilled Nursing Goals Time Frame: Dec 18, 2017 Upper Body Dressing(FIM): 6 Lower Body Dressing(FIM): 6 Toileting(FIM): 6 Transfers (B,C,W/C) (FIM): 6 Toilet/Commode Transfer(FIM): 6 1=Demonstrate adherence to instructed precautions during ADL tasks. 2=Patient will verbalize/demonstrate understanding of assistive devices/ modifications for ADL. 3=Patient will improve strength/tolerance for activity to enable patient to perform ADL's. OT Education/Plan Problem List/Assessment Assessment: Decreased Activ Tolerance Discharge Recommendations Plan/Recommendations: Continue POC Therapy D/C Recommendations: Acute Rehab Barriers to Progress Pt demonstrates the need for verbal cues for completing ADLs and functional transfers while maintaining sternal precautions. Pt becomes short of breath and fatigued with ADLs and ambulating short distances. Treatment Plan/Plan of Care Treatment,Training & Education: Yes Patient would benefit from OT for education, treatment and training to promote independence in ADL's, mobility, safety and/or upper extremity function for ADL' s. Plan of Care: ADL Retraining, Functional Mobility, UE Funct Exercise/Act Treatment Duration: Dec 18, 2017 Frequency: 5 times per week Estimated Hrs Per Day: .5 hour per day Rehab Potential: Good Time/GCodes Start Time: 13:30 Stop Time: 14:10 Total Time Billed (hr/min): 40 Billed Treatment Time visit, 20 minutes of FA, EVL 20 minutes MASTER BURGER OT December 09, 2017 14:16
--- NOTE | 2017-12-09 14:32 | Physical Therapy Evaluation ---
PT Evaluation-General Medical Diagnosis Admission Date December 09, 2017 at 02:20 Medical Diagnosis: weakness Onset Date: December 09, 2017 Therapy Diagnosis Therapy Diagnosis: impaired mobility, strength, enduance Height/Weight Height (Feet): 5 Height (Inches): 2.00 Weight (Pounds): 158 Weight (Ounces): 14.4 Precautions Precautions/Isolations: Standard Precautions Referral Physician: Cherri Wilson DO Reason for Referral: Evaluation/Treatment Medical History Pertinent Medical History: Arthritis, CAD, CVA, DM, GERD, HTN, NC, Neuropathy Additional Medical History Former smoker, high cholesterol, TIA, hemorrhoids, ulcer, anxiety, surg (cardiac , CABG, coronary stent, gallbladder, orthopedic, rectal, tonsillectomy, tubal ligation) Current History patient was just discharged from post CABG, went to ER with volume overload and hypoxia Reviewed History: Yes Social History Home: Single Level Current Living Status: Spouse Entry Into Home: Stairs Without Railing PT Steps Into Home: 3 Patient lives in an apartment complex but lives on the first floor. Prior/Core FIM Prior Level of Function Functional [place] Measure 0=Not Assessed/NA 4=Minimal Assistance 1=Total Assistance 5=Supervision or Setup 2=Maximal Assistance 6=Modified [place] 3=Moderate Assistance 7=Complete [place] Bed Mobility: 6 Transfers (B,C,W/C) (FIM): 6 Gait: 6 PT Evaluation-Current Subjective Patient in recliner pre tx, agrees to PT, no pain reported. Patient is aware of her sternal precautions. Pt/Family Goals to be independent at home Objective Patient Orientation: Person, Place, Situation ROM/Strength ROM Lower Extremities WNL Strength Lower Extremities LLE not tested except for dorsiflexion (3/5 bilaterally) due to vessel harvest, RLE hip flexion 3+/5, knee flexion 4+/5, knee extension 4+/5 Neuromuscular (Tone, Coordination, Reflexes) NT Sensory Hearing: Functional Sensation Right Lower Extremit: Intact Sensation Left Lower Extremity: Intact Transfers Functional [place] Measure 0=Not Assessed/NA 4=Minimal Assistance 1=Total Assistance 5=Supervision or Setup 2=Maximal Assistance 6=Modified [place] 3=Moderate Assistance 7=Complete [place] Transfers (B, C, W/C) (FIM): 5 Sit to/from Stand: 5 bed t/f WC(FIM only if WC use): 5 Gait Mode of Locomotion: Walk Anticipated Mode of Locomotion: Walk Gait (FIM): 5 Distance: 300' Gait Level of Assist: 5 Gait Persons Needed: 1 Gait Assistive Device: Walker 4 Wheeled Comments/Gait Description Patient had steady ambulation, brisk stepping, O2 stayed at 93%. Balance Sitting Static: Normal Sitting Dynamic: Normal Standing Static: Normal Standing Dynamic: Normal Treatment seated exercises x15 (AP, LAQ, hip flexion) Assessment/Needs Patient has impaired mobility, strength, endurance post CABG. She is aware of her sternal precautions and compliant with them. Patient is going to discharge from this facility today and will be discharged from PT at this time. Rehab Potential: Fair PT Plan Problem List Problem List: Activity Tolerance, Functional Strength, Gait, Transfer Treatment/Plan Treatment Plan: Discontinue PT Treatment Plan: Other Treatment Duration: December 09, 2017 Frequency: Estimated Hrs Per Day: Other Patient and/or Family Agrees t: Yes Safety Risks/Education Patient Education: Gait Training, Transfer Techniques, Reviewed Precautions, Correct Positioning, Safety Issues Teaching Recipient: Patient Teaching Methods: Demonstration, Discussion Response to Teaching: Reinforcement Needed Discharge Recommendations Plan DC Therapy D/C Recommendations: Home w/ Family Support Time/GCodes Time In: 1410 Time Out: 1425 Total Billed Treatment Time: 15 Total Billed Treatment 1 visit EVL 15' G Codes Necessary: Yes PT/OT Therapy GCodes Therapy Functional Limitation: Physical Therapy Test(s)/Tool used to determine: Level of Assistance Scale Functional Limitation-Current Charge Code: MOBCUR Modifier: CI Functional Limitation-Goal Charge Code: MOBGOAL Modifier: CI Functional Limitation-D/C Charge Codes: MOBDC Modifier: CI MAURICIO STRAUSS PT December 09, 2017 14:32
[2017-12-09] MEDS ORDERED: metFORMIN XR 500 MG (GLUCOPHAGE XR) TAB PO SCH (17:00)
[2017-12-09] MEDS ORDERED: NON-FORMULARY MEDICATION 1 EA EA (Metformin HCl (Metformin HCl ER) 1,000 MG) PO SCH (17:00)
[2017-12-09] MEDS ORDERED: SENNA W/DOCUSATE (SENOKOT S) TABLET PO SCH (21:00)
[2017-12-09] MEDS ORDERED: inSUlin DETERMIR 1 UNIT/0.01 ML (LEVEMIR) CHARGE PER UNIT SQ SCH (21:00)
[2017-12-09] MEDS ORDERED: DOCUSATE SODIUM PO SCH (21:00)
[2017-12-09] MEDS ORDERED: NON-FORMULARY MEDICATION 1 EA EA (Insulin Detemir (Levemir Flextouch) 26 UNITS) SQ SCH (21:00)
[2017-12-09] MEDS ORDERED: SENNOSIDES PO SCH (21:00)
[2017-12-10] MEDS ORDERED: ATORVASTATIN 40 MG (LIPITOR) TABLET PO SCH (09:00)
[2017-12-10] MEDS ORDERED: SPIRONOLACTONE 12.5 MG PO SCH (09:00)
[2017-12-10] MEDS ORDERED: VITAMIN D3 1,000 UNITS (CHOLECALCIFEROL) TABLET PO SCH (09:00)
[2017-12-10] MEDS ORDERED: NON-FORMULARY MEDICATION 1 EA EA (Cholecalciferol (Vitamin D3) (Vitamin D3) 1,000 UNIT) PO SCH (09:00)
== END 2017-12-09 14:32 | disposition home or self-care (01) ==
LOC: EDUNIT# 00:53 → ER 00:55 → UNDOADMOB 02:20 → 4TH 02:20 → UNDODISOB 14:55
PROVIDERS: ADMIT Internal Medicine; ATTEND Internal Medicine
DX: I11.0 Hypertensive heart disease with heart failure (principal); I50.9 Heart failure, unspecified; J44.9 Chronic obstructive pulmonary disease, unspecified; J98.11 Atelectasis; I25.10 Atherosclerotic heart disease of native coronary artery without angina pectoris; E11.9 Type 2 diabetes mellitus without complications; E78.00 Pure hypercholesterolemia, unspecified; K21.9 Gastro-esophageal reflux disease without esophagitis; R53.81 Other malaise; R07.89 Other chest pain; I25.2 Old myocardial infarction; Z79.4 Long term (current) use of insulin; Z79.82 Long term (current) use of aspirin; Z79.899 Other long term (current) drug therapy; Z87.891 Personal history of nicotine dependence; Z95.1 Presence of aortocoronary bypass graft; Z95.5 Presence of coronary angioplasty implant and graft; Z86.73 Personal history of transient ischemic attack (TIA), and cerebral infarction without residual deficits; Z91.14 Patient's other noncompliance with medication regimen
CPT/HCPCS: 36415; 71045; 80053; 82550; 82553; 82962; 83735; 83880; 84484; 85007; 85025; 85027; 85610; 85730; 93005; 93041; 93306; 93320; 94640; 94664; 94760; 94761; 96374; 96375

== ENCOUNTER 2018-07-24 22:43 | Emergency (ER) | payer MEDICARE ==
[~2018-07-24] VITALS: Ht 157.5 cm; Wt 72.1 kg
[~2018-07-24 22:43] MED LIST changes: +ACET-2267 PO; -AMLO10TA2 PO; +AMLO10TA6 PO; -BENZ-13 PO; +BENZ100C18 PO; +CALC500T3 PO; +CHOL10003 PO; +EVOL140P SQ; +FURO-125 PO; +HYDR-4226 PO; +LISI-556 PO; +METF-399 PO; +METF-479 PO; -METF10002 PO; +METO-387 PO; +NITR0.4T39 SL; -OXYC-201 PO; +OXYC-471 PO; +OXYC1TAB16 PO; +SENN-40 PO; +SPIR25TA PO
[2018-07-25] MEDS ORDERED: NS IV 1000 ML 1,000 ML IV SCH (00:18)
[2018-07-25 00:22] LABS: BILIRUBIN,URINE NEGATIVE (NEGATIVE); CLARITY,URINE CLEAR; COLOR,URINE YELLOW; GLUCOSE, URINE (UA) 3+ (NEGATIVE); KETONES,URINE NEGATIVE (NEGATIVE); LEUKOCYTE ESTERASE ,URINE 2+ (NEGATIVE); NITRITE,URINE NEGATIVE (NEGATIVE); PH,URINE 6 (5-9); PROTEIN,URINE 1+ (NEGATIVE); UROBILINOGEN,URINE NORMAL (NORMAL)
[2018-07-25] MEDS ORDERED: ONDANSETRON 4 MG/2 ML (SDV) Z0FRAN IVP ONE (00:30)
[2018-07-25] MEDS ORDERED: PANTOPRAZOLE 40 MG (PROTONIX) VIAL IV ONE (00:30)
[2018-07-25] MEDS ORDERED: cefTRIAXone FOR IV USE 1,000 MG in NS (IVPB) 50 ML IV ONE (00:30)
[2018-07-25] MEDS ORDERED: fentaNYL INJECTION 100 MCG/2 ML AMP IVP ONE (00:30)
--- NOTE | 2018-07-25 00:30 | ED GU-Female ---
General Chief Complaint: -Female Stated Complaint: BLOOD IN URINE,LOWER BACK PAIN Source: patient, spouse Exam Limitations: no limitations History of Present Illness Date Seen by Provider: Jul 25, 2018 Time Seen by Provider: 00:16 Initial Comments The patient presents to ER by private conveyance with her significant other and chief complaint that she's having some right flank pain and dysuria. She says she had the same symptoms several weeks ago when she was diagnosed with a urinary tract infection and put on some antibiotics but she's not sure what she took. She completed those and felt better. She does not have a history of kidney stones. She went to her primary care doctor's office and was seen at the walk-in clinic yesterday and was told she might have a kidney stone but no CT scan was obtained. Patient rates her pain as a 10 out of 10 on the right flank. She's had nausea vomiting chronically but it's worse right now. No fevers or chills. Historically she's had a CABG in November 2017 3 vessels done at [place]. She' s had a heart attack and says this doesn't feel anything like it. She denies any chest pain or shortness of breath. No sweats. Allergies and Home Medications Allergies Coded Allergies: Fish Containing Products (Unverified Allergy, Unknown, 05/17/15) FROM UNCODED ALLERGIES ketoprofen (Verified Allergy, Unknown, 03/01/08) mushroom (Unverified Allergy, Unknown, 05/17/15) FROM UNCODED ALLERGIES Home Medications Acetaminophen 500 Mg Tablet, 500-1,000 MG PO Q6H PRN for PAIN-MILD, (Reported) Aspirin 81 Mg Tablet.dr, 81 MG PO DAILY, (Reported) Atorvastatin Calcium 40 Mg Tablet, 40 MG PO DAILY, (Reported) Calcium Carbonate 500 Mg Tablet, 500 MG PO UD PRN for INDIGESTION, (Reported) Cholecalciferol (Vitamin D3) 1,000 Unit Tablet, 1,000 UNIT PO DAILY, (Reported) Evolocumab 140 Mg/1 Ml Pen.injctr, 140 MG SQ EVERY 14 DAYS, (Reported) Furosemide 20 Mg Tablet, 20 MG PO PRN Prescribed by: FABY CHANDLER on 12/09/17 1321 Insulin Aspart 100 Unit/1 Ml Susp, SQ AC, (Reported) INJECT 8 UNITS WITH MEALS PLUS 0-14 UNITS ON SLIDING SCALE Insulin Detemir 100 Unit/1 Ml Insuln.pen, 26 UNITS SQ HS, (Reported) Lisinopril 5 Mg Tablet, 5 MG PO DAILY, (Reported) Metformin HCl 1,000 Mg Tab.er.24, 1,000 MG PO BID WITH MEALS, (Reported) Metoprolol Succinate 25 Mg Tab.er.24h, 25 MG PO DAILY, (Reported) Nitroglycerin 0.4 Mg Tab.subl, 0.4 MG SL UD PRN for CHEST PAIN, (Reported) Oxycodone HCl/Acetaminophen 1 Each Tablet, 1-2 TAB PO Q6H PRN for PAIN-MODERATE, (Reported) Sennosides/Docusate Sodium 1 Each Tablet, 2 TAB PO BID, (Reported) Spironolactone 25 Mg Tablet, 12.5 MG PO DAILY, (Reported) TAKES 1/2 (25MG) TABLET Tramadol HCl 50 Mg Tablet, 50 MG PO Q6H PRN for PAIN-MODERATE, (Reported) Patient Home Medication List Home Medication List Reviewed: Yes Review of Systems Review of Systems Constitutional: No chills, No diaphoresis EENTM: No ear discharge, No hearing loss Respiratory: No cough, No short of breath Cardiovascular: No chest pain, No palpitations Gastrointestinal: No abdominal pain, No constipation, No nausea Genitourinary: denies discharge; dysuria : No Past Xriegcu-Oxbctt-Zrcusn Hx Patient Social History Alcohol Use: Denies Use Recreational Drug Use: No Smoking Status: Former Smoker Type Used: Cigarettes Former Smoker, Quit: Jan 27, 2017 2nd Hand Smoke Exposure: Yes ( IS HEAVY SMOKER) Recent Foreign Travel: No Contact w/Someone Who Travel: No Recent Hopitalizations: Yes (CABG AT --DISMISSED 12/08/17 ) Immunizations Up To Date Tetanus Booster (TDap): Less than 5yrs PED Vaccines UTD: No Date of Pneumonia Vaccine: May 11, 2015 Date of Influenza Vaccine: Apr 12, 2016 Seasonal Allergies Seasonal Allergies: No Past Medical History Surgeries: Yes Cardiac, CABG, Coronary Stent, Gallbladder, Orthopedic, Rectal, Tonsillectomy, 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 Respiratory: Yes Chronic Bronchitis, COPD Currently Using CPAP: No Currently Using BIPAP: No Cardiac: Yes (STENTS X 13; 3 VESSEL CABG 12/02/17 AT ) Coronary Artery Disease, Heart Attack, High Cholesterol, Hypertension Neurological: Yes (MILD SPEECH IMPAIRMENT) Neuropathy, Stroke, TIA 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 Disorders: No Female 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 Disorders: Denies [employer] History: 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, Menopausal Sexually Transmitted Disease: No HIV/AIDS: No Genitourinary: No Gastrointestinal: Yes Gastroesophageal Reflux, Hemorrhoids, Ulcer Musculoskeletal: Yes (BILATERAL CARPAL TUNNEL, RIGHT KNEE SCOPE X 2) Arthritis Endocrine: Yes Diabetes, Insulin dep HEENT: Yes (TEETH REMOVED) Cancer: Yes (S/P SURGERY ONLY) Cervical Did You Recieve Any Treatments: Yes What Type of Treatment Did You: Surgical Intervention Psychosocial: Yes Anxiety Integumentary: No Blood Disorders: No Family Medical History Alcoholism Arthritis Asthma Cardiovascular disease Cataracts Colon cancer Completed stroke Coronary thrombosis Diabetes mellitus Gastroenteritis Glaucoma Headache disorder Hypertension Kidney disease Psychosocial problem Respiratory disorder Seizure disorder Severe allergy Thyroid disease Visual disorder Heart Disease, Hypertension Physical Exam Vital Signs Vital Signs - First Documented 07/25/18 00:07 Temp 98.0 Pulse 95 Resp 19 B/P (MAP) 187/92 (123) Capillary Refill : Height, Weight, BMI Height: 5'2.00" Weight: 158lbs. 14.4oz. [id number]; 29.1 BMI Method:Stated General Appearance: WD/WN, moderate distress HEENT: PERRL/EOMI, normal ENT inspection, pharynx normal Neck: non-tender, full range of motion, supple, normal inspection Cardiovascular: normal peripheral pulses, regular rate, rhythm Respiratory: chest non-tender, lungs clear, normal breath sounds, no respiratory distress, no accessory muscle use Gastrointestinal: normal bowel sounds, non tender, soft Back: CVA tenderness (R); No CVA tenderness (L) Extremities: normal range of motion, non-tender, normal inspection, normal capillary refill Neurologic/Psychiatric: alert, normal mood/affect, oriented x 3 Skin: normal color, warm/dry Focused Exam Lactate Level 07/25/18 01:05: Lactic Acid Level 1.25 Progress/Results/Core Measures Suspected Sepsis SIRS Temperature: Pulse: Respiratory Rate: Laboratory Tests 07/25/18 00:40: White Blood Count 7.6 Blood Pressure / Mean: 07/25/18 01:05: Lactic Acid Level 1.25 Laboratory Tests 07/25/18 00:40: Creatinine 0.83, INR Comment 0.9, Platelet Count 205, Total Bilirubin 0.3 Results/Orders Lab Results Laboratory Tests Test 07/25/18 00:10 07/25/18 00:40 07/25/18 01:05 07/25/18 04:07 Range/Units Urine Color YELLOW Urine Clarity CLEAR Urine pH 6 5-9 Urine Specific [place] 1.010 L 1.016-1.022 Urine Protein 1+ H NEGATIVE Urine Glucose (UA) 3+ H NEGATIVE Urine Ketones NEGATIVE NEGATIVE Urine Nitrite NEGATIVE NEGATIVE Urine Bilirubin NEGATIVE NEGATIVE Urine Urobilinogen NORMAL NORMAL MG/DL Urine Leukocyte Esterase 2+ H NEGATIVE Urine RBC (Auto) NEGATIVE NEGATIVE Urine RBC NONE /HPF Urine WBC 0-2 /HPF Urine Squamous Epithelial Cells 0-2 /HPF Urine Crystals NONE /LPF Urine Bacteria TRACE /HPF Urine Casts NONE /LPF Urine Mucus NEGATIVE /LPF Urine Culture Indicated NO White Blood Count 7.6 4.3-11.0 10^3/uL Red Blood Count 4.31 L 4.35-5.85 10^6/uL Hemoglobin 11.9 11.5-16.0 G/DL Hematocrit 37 35-52 % Mean Corpuscular Volume 86 80-99 FL Mean Corpuscular Hemoglobin 28 25-34 PG Mean Corpuscular Hemoglobin Concent 32 32-36 G/DL Red Cell Distribution Width 14.0 10.0-14.5 % Platelet Count 205 130-400 10^3/uL Mean Platelet Volume 11.1 H 7.4-10.4 FL Neutrophils (%) (Auto) 50 42-75 % Lymphocytes (%) (Auto) 41 12-44 % Monocytes (%) (Auto) 8 0-12 % Eosinophils (%) (Auto) 1 0-10 % Basophils (%) (Auto) 0 0-10 % Neutrophils # (Auto) 3.8 1.8-7.8 X 10^3 Lymphocytes # (Auto) 3.1 1.0-4.0 X 10^3 Monocytes # (Auto) 0.6 0.0-1.0 X 10^3 Eosinophils # (Auto) 0.1 0.0-0.3 10^3/uL Basophils # (Auto) 0.0 0.0-0.1 10^3/uL Prothrombin Time 12.6 12.2-14.7 SEC INR Comment 0.9 0.8-1.4 Activated Partial Thromboplast Time 24 24-35 SEC Sodium Level 142 135-145 MMOL/L Potassium Level 3.7 3.6-5.0 MMOL/L Chloride Level 106 98-107 MMOL/L Carbon Dioxide Level 25 21-32 MMOL/L Anion Gap 11 5-14 MMOL/L Blood Urea Nitrogen 24 H 7-18 MG/DL Creatinine 0.83 0.60-1.30 MG/DL Estimat Glomerular Filtration Rate > 60 BUN/Creatinine Ratio 29 Glucose Level 69 L 70-105 MG/DL Calcium Level 9.4 8.5-10.1 MG/DL Corrected Calcium 9.6 8.5-10.1 MG/DL Magnesium Level 2.1 1.8-2.4 MG/DL Total Bilirubin 0.3 0.1-1.0 MG/DL Aspartate Amino Transf (AST/SGOT) 15 5-34 U/L Alanine Aminotransferase (ALT/SGPT) 11 0-55 U/L Alkaline Phosphatase 81 40-136 U/L Troponin I < 0.028 < 0.028 <0.028 NG/ML Total Protein 7.4 6.4-8.2 GM/DL Albumin 3.8 3.2-4.5 GM/DL Lactic Acid Level 1.25 0.50-2.00 MMOL/L My Orders Orders - DAIN SHEPHERD Ua Culture If Indicated (07/24/18 22:48) Ct Abd/Pelvis Wo(Kidney Stone) (07/25/18 00:18) Cbc With Automated Diff (07/25/18:18) Comprehensive Metabolic Panel (07/25/18 00:18) Magnesium (07/25/18 00:18) Saline Lock/Iv-Start (07/25/18:18) Ns Iv 1000 Ml (Sodium Chloride 0.9%) (07/25/18 00:18) Ondansetron Injection (Zofran Injectio (07/25/18 00:30) Protime With Inr (07/25/18:22) Partial Thromboplastin Time (07/25/18 00:22) Lactic Acid Analyzer (07/25/18 00:22) Blood Culture (07/25/18 00:22) Pantoprazole Injection (Protonix Injecti (07/25/18 00:30) Fentanyl Injection (Sublimaze Injection (07/25/18 00:30) Ceftriaxone For Iv Use (Rocephin For I (07/25/18 00:30) Chest 1 View, Ap/Pa Only (07/25/18 01:34) Ekg Tracing (07/25/18 02:25) Continuous Ekg Monitoring (07/25/18 02:25) Troponin I (07/25/18 02:25) Troponin I (07/25/18 03:21) Medications Given in ED Current Medications Medications Dose Ordered Sig/Kelli Route Start Time Stop Time Status Last Admin Dose Admin Ceftriaxone Sodium 1000 mg/ Sodium Chloride 50 ml @ 100 mls/hr ONCE ONCE IV 07/25/18 00:30 07/25/18 00:59 DC 07/25/18 02:20 100 MLS/HR Fentanyl Citrate 100 mcg ONCE ONCE IVP 07/25/18 00:30 07/25/18 00:31 DC 07/25/18 02:20 100 MCG Ondansetron HCl 4 mg ONCE ONCE IVP 07/25/18 00:30 07/25/18 00:31 DC 07/25/18 02:20 4 MG Pantoprazole 40 mg ONCE ONCE IV 07/25/18 00:30 07/25/18 00:31 DC 07/25/18 02:20 40 MG Vital Signs/I&O 07/25/18 07/25/18 00:07 01:05 Temp 98.0 98.0 Pulse 95 88 Resp 19 B/P (MAP) 187/92 (123) 167/97 Capillary Refill : Progress Note : Time: 00:29 Progress Note Zofran, fentanyl, Protonix. She notes she has a history of stronger which causes nausea. We will get a CT without contrast of her abdomen and pelvis looking for kidney stone. Urinalysis and basic labs. She is tachycardic which is probably more from pain but could be from sepsis. We'll start with a liter of saline and Rocephin for antibiotics for suspected tract infection. Diagnostic Imaging Diagonstic Imaging: CT (noncontrast) Plain Films/CT/US/NM/MRI: abdomen, head Comments No specific findings to explain hematuria. Multiple calcifications the pelvis or compatible phleboliths though a nonobstructing distal ureteral stone is difficult to exclude. If necessary delayed phase. Postcontrast imaging could be pursued. Departure Impression Primary Impression: Abdominal pain Qualified Codes: R10.9 - Unspecified abdominal pain Additional Impression: Nausea & vomiting Qualified Codes: R11.2 - Nausea with vomiting, unspecified Disposition: HOME, SELF-CARE Condition: Improved Departure-Patient Inst. Decision time for Depature: 05:31 Referrals: [facility] (PCP/Family) Primary Care Physician Patient Instructions: [id number] Add. Discharge Instructions: Use the Zofran 1 tablet every 6 hours as needed for nausea. Follow up with primary care later this week. Encourage lots of fluids. All discharge instructions reviewed with patient and/or family. Voiced understanding. Scripts Ondansetron (Ondansetron Odt) 4 Mg Tab.rapdis 4 MG PO Q6H PRN for NAUSEA/VOMITING, #8 TAB 0 Refills Prov: DAIN SHEPHERD 07/25/18 DAIN SHEPHERD Jul 25, 2018 00:30
[2018-07-25 00:34] LABS: BACTERIA,URINE TRACE /HPF; SQUAMOUS EPITHELIAL CELL,UR 0-2 /HPF; WBC,URINE 0-2 /HPF
[2018-07-25 00:55] LABS: BASOPHILS % (AUTO) 0 % (0-10); EOSINOPHILS # (AUTO) 0.1 10^3/uL (0.0-0.3); EOSINOPHILS % (AUTO) 1 % (0-10); HEMATOCRIT 37 % (35-52); HEMOGLOBIN 11.9 G/DL (11.5-16.0); LYMPHOCYTES # (AUTO) 3.1 X 10^3 (1.0-4.0); LYMPHOCYTES % (AUTO) 41 % (12-44); MEAN CORPUSCULAR HEMOGLOBIN 28 PG (25-34); MEAN CORPUSCULAR HGB CONC 32 G/DL (32-36); MEAN CORPUSCULAR VOLUME 86 FL (80-99); MEAN PLATELET VOLUME 11.1 FL (7.4-10.4); MONOCYTES # (AUTO) 0.6 X 10^3 (0.0-1.0); MONOCYTES % (AUTO) 8 % (0-12); NEUTROPHILS # (AUTO) 3.8 X 10^3 (1.8-7.8); NEUTROPHILS % (AUTO) 50 % (42-75); PLATELET COUNT 205 10^3/uL (130-400); RED BLOOD COUNT 4.31 10^6/uL (4.35-5.85); WHITE BLOOD COUNT 7.6 10^3/uL (4.3-11.0)
[2018-07-25 01:00] LABS: INR 0.9 (0.8-1.4); PROTHROMBIN TIME PATIENT 12.6 SEC (12.2-14.7)
[2018-07-25 01:14] LABS: ALANINE AMINOTRANSFERASE 11 U/L (0-55); ALBUMIN 3.8 GM/DL (3.2-4.5); ALKALINE PHOSPHATASE 81 U/L (40-136); BILIRUBIN,TOTAL 0.3 MG/DL (0.1-1.0); BUN/CREATININE RATIO 29; CALCIUM 9.4 MG/DL (8.5-10.1); CARBON DIOXIDE 25 MMOL/L (21-32); CHLORIDE 106 MMOL/L (98-107); CREATININE SERUM 0.83 MG/DL (0.60-1.30); GFR ESTIMATED > 60; GLUCOSE 69 MG/DL (70-105); MAGNESIUM 2.1 MG/DL (1.8-2.4); POTASSIUM 3.7 MMOL/L (3.6-5.0); SODIUM 142 MMOL/L (135-145); TOTAL PROTEIN 7.4 GM/DL (6.4-8.2)
[2018-07-25] MEDS ORDERED: ONDA4TAB11 PO (05:32)
[2018-07-25 05:39] VITALS: BP 158/88
--- NOTE | 2018-07-25 07:33 | Diagnostic Imaging Report ---
EXAMINATION: Portable erect AP chest obtained at 207h. INDICATION: Back pain The cardiomegaly and the sternotomy wires and orthopedic fixation plates seen previously on 12/09/2017 are again evident and no different. The lungs are generally clear. There is no sign of failure, pneumonia or a pleural effusion. The mediastinum is not widened. The osseous structures are intact. The healed displaced fracture of the right sixth rib seen previous is again evident and no different. IMPRESSION: There is cardiomegaly and evidence of prior cardiac surgery but there is no sign of an acute cardiopulmonary abnormality. Dictated by: Dictated on workstation # [id number]
--- NOTE | 2018-07-25 07:58 | Diagnostic Imaging Report ---
PROCEDURE: CT urinary tract, rule out kidney stone. TECHNIQUE: Multiple contiguous axial images were obtained through the abdomen and pelvis without the use of intravenous contrast. INDICATION: Hematuria, back pain There are no prior studies available for comparison. There is no evidence for nephrolithiasis or urolithiasis and the kidneys do not seem to be obstructed. The urinary bladder is grossly unremarkable. There are a number of phleboliths near the base of the bladder but there is no clear evidence for a calculus within the distal ureters. The uterus is surgically absent. There is no pelvic mass or free fluid collection noted. The appendix was visualized and is not abnormally thickened. The liver, spleen, pancreas, adrenals, aorta and inferior vena cava show no sign of an acute abnormality. The gallbladder is surgically absent. The stomach is not well-distended and consequently difficult to assess. The lung bases are generally clear. The heart is enlarged and there are coronary artery calcifications evident as well as evidence of a prior cardiac surgical procedure. The bone windows show no evidence for a fracture or for a destructive lesion. However, there is fairly severe degenerative disc and bony disease at L2-3. There is no obvious breast mass. According to our records, the patient has not had a mammogram. If the patient has had a recent (within the last year)mammogram elsewhere then no further imaging will be necessary. Otherwise, mammography would be recommended for further study. IMPRESSION: 1. There is no evidence for nephrolithiasis or urolithiasis and the kidneys do not seem to be obstructed. If further evaluation regarding obstruction of the kidneys is desired, then a followup CT abdomen/pelvis exam with intravenous contrast would be recommended. 2. There is no acute abnormality of the abdomen or pelvis noted otherwise. 3. The gallbladder is surgically absent. 4. There is no obvious breast mass. Recommendations as above. Dictated by: Dictated on workstation # [id number]
== END 2018-07-25 05:41 | disposition home or self-care (01) ==
LOC: EDUNIT# 22:43 → ER 22:45
DX: R10.30 Lower abdominal pain, unspecified (principal); R11.2 Nausea with vomiting, unspecified; I25.2 Old myocardial infarction; J44.9 Chronic obstructive pulmonary disease, unspecified; I25.10 Atherosclerotic heart disease of native coronary artery without angina pectoris; E78.00 Pure hypercholesterolemia, unspecified; I10 Essential (primary) hypertension; F80.0 Phonological disorder; K21.9 Gastro-esophageal reflux disease without esophagitis; E11.40 Type 2 diabetes mellitus with diabetic neuropathy, unspecified; F41.9 Anxiety disorder, unspecified; Z80.0 Family history of malignant neoplasm of digestive organs; Z85.41 Personal history of malignant neoplasm of cervix uteri; Z87.19 Personal history of other diseases of the digestive system; Z82.49 Family history of ischemic heart disease and other diseases of the circulatory system; Z86.73 Personal history of transient ischemic attack (TIA), and cerebral infarction without residual deficits; Z79.82 Long term (current) use of aspirin; Z79.4 Long term (current) use of insulin; Z87.891 Personal history of nicotine dependence; Z95.5 Presence of coronary angioplasty implant and graft; Z90.89 Acquired absence of other organs; Z98.51 Tubal ligation status; Z88.8 Allergy status to other drugs, medicaments and biological substances; Z95.1 Presence of aortocoronary bypass graft
CPT/HCPCS: 36415; 71045; 74176; 80053; 81000; 83605; 83735; 84484; 85025; 85610; 85730; 87040; 93005

== ENCOUNTER → 2018-08-10 | Outpatient (CLI) | payer MEDICARE, OTHER ==
[~2018-08-10] MED LIST changes: -AMLO10TA6 PO; +AMLO10TA7 PO; +ONDA4TAB11 PO
== END ==
LOC: CARD 12:55
PROVIDERS: ATTEND Internal Medicine Cardiovascular Disease
DX: R07.9 Chest pain, unspecified (principal); I25.119 Atherosclerotic heart disease of native coronary artery with unspecified angina pectoris; E11.9 Type 2 diabetes mellitus without complications; I10 Essential (primary) hypertension; E78.5 Hyperlipidemia, unspecified; I34.0 Nonrheumatic mitral (valve) insufficiency
CPT/HCPCS: 93306

== ENCOUNTER 2018-09-09 08:59 | Outpatient (RCR) | payer MEDICARE, OTHER | END 2018-09-09 09:56 | disposition home or self-care (01) | PROVIDERS: ATTEND Family Medicine | DX: M25.511 Pain in right shoulder (principal) ==

== ENCOUNTER → 2018-10-13 | Outpatient (CLI) | payer MEDICARE ==
[~2018-10-13] VITALS: Ht 154.9 cm; Wt 74.4 kg
[~2018-10-13] MED LIST changes: +CATHETER FLUSH 10 ML SYR IV PRN; +REGADENOSON 0.4 MG/5 ML SYR (LEXISCAN) IV ONE
[2018-10-13 13:25] VITALS: BP 128/61
[2018-10-13 13:32] VITALS: BP 167/70
--- NOTE | 2018-10-13 15:14 | STRESS TEST ---
DATE OF SERVICE: LEXISCAN MYOVIEW STRESS TEST Baseline heart rate is 83, baseline blood pressure 128/61. Baseline EKG is sinus rhythm with no ischemic changes. In summary, the patient was injected with 10.2 mCi of technetium-99 Myoview and the resting images were obtained. Then, the patient received 0.4 mg of Lexiscan followed by 30.0 mCi of technetium-99 Myoview. Throughout the test, there were no EKG changes. The resting and stress images were reviewed and compared in the short axis, horizontal long axis and vertical long axis views. Review of the images showed diaphragmatic attenuation with decreased uptake involving the inferior wall and inferoapical wall with no significant ischemia. SSS is 4, SDS 1, TID value 1.03. On the gated images, the left ventricle appeared to be in normal size with mild hypokinesia involving the inferior wall and inferoseptum and true septum with calculated ejection fraction of 46%. CONCLUSION: 1. The patient tolerated Lexiscan well. 2. Diaphragmatic attenuation with fixed defect involving the inferior wall and inferoapical segment with no significant ischemia. 3. Normal left ventricular size with mild diffuse left ventricular hypokinesia, more pronounced at the inferior wall and inferoseptum. Calculated ejection fraction of 46%. Job ID: [id number] DocumentID: [id number] Dictated Date: 10/13/2018 14:53:58 Mat Sewer Date: 10/13/2018 15:13:17 Dictated By: FABY CHANDLER MD
== END ==
LOC: CARD 12:14
PROVIDERS: ATTEND Physician Assistant
DX: I10 Essential (primary) hypertension (principal); I25.119 Atherosclerotic heart disease of native coronary artery with unspecified angina pectoris; E78.5 Hyperlipidemia, unspecified; E11.9 Type 2 diabetes mellitus without complications
CPT/HCPCS: 78452; 93017

== ENCOUNTER → 2018-12-03 | Outpatient (CLI) | payer MEDICARE ==
[~2018-12-03] MED LIST changes: -CATHETER FLUSH 10 ML SYR IV PRN; -REGADENOSON 0.4 MG/5 ML SYR (LEXISCAN) IV ONE
--- NOTE | 2018-12-03 15:39 | Diagnostic Imaging Report ---
CT CHEST SCREENING WO TECHNIQUE: Low-dose unenhanced CT of the chest was performed according to the screening protocol. Coronal MIP and sagittal MPR reformats are created. Automatic dose exposure controls were utilized to keep dose as low as reasonably achievable. INDICATION: 63-year-old female with [id number]-[id number] history of smoking. COMPARISON: CT chest of 03/02/2008 FINDINGS: Pulmonary findings: No endoluminal nodule within the trachea. No pulmonary mass or consolidation. Calcified right lower lobe pulmonary nodule is compatible with granulomatous infection. No concerning pulmonary nodule. Extrapulmonary findings: No axillary lymphadenopathy. No pleural effusion. No mediastinal, hilar or juxtaphrenic lymphadenopathy. Heart is enlarged and status post CABG. Normal caliber thoracic aorta. No pericardial effusion. Cholecystectomy. IMPRESSION: Screening exam is negative for features of clinically active lung cancer. Lung-RADS category: 1 - Negative Modifier: None. Recommendations: Continued annual screening with low-dose CT in 12 months. Dictated by: Dictated on workstation # [id number]
--- NOTE | 2018-12-07 12:53 | Diagnostic Imaging Report ---
Indication: Routine screening. No prior mammograms are available for comparison. 2-D and 3-D bilateral screening mammography was performed with CAD. Both breasts are heterogeneously dense, limiting the sensitivity of mammography. There are numerous calcifications throughout both breasts which appear to be fairly coarse and round and no spiculated mass or malignant appearing microcalcifications are seen. The axillae are unremarkable. Impression: BI-RADS category 2 No mammographic features suspicious for malignancy are identified. ACR BI-RADS Category 2: Benign findings. Result letter will be mailed to the patient. Note: At least 10% of breast cancer is not imaged by mammography. Dictated by: Dictated on workstation # [id number]
== END ==
LOC: RAD 14:36
PROVIDERS: ATTEND Nurse Practitioner Family
DX: Z12.31 Encounter for screening mammogram for malignant neoplasm of breast (principal); Z12.2 Encounter for screening for malignant neoplasm of respiratory organs; Z87.891 Personal history of nicotine dependence; Z95.1 Presence of aortocoronary bypass graft
CPT/HCPCS: 77067

== ENCOUNTER 2019-01-18 05:45 | Outpatient (CLI) | payer MEDICARE ==
[~2019-01-18] VITALS: Ht 154.9 cm; Wt 74.4 kg
== END 2019-01-18 13:33 | disposition home or self-care (01) ==
LOC: PREOP 05:45
PROVIDERS: ATTEND Surgery
DX: Z01.818 Encounter for other preprocedural examination (principal)

== ENCOUNTER 2019-06-22 16:44 | Emergency (ER) | payer MEDICARE ==
[~2019-06-22] VITALS: Ht 157 cm; Wt 69.0 kg
[~2019-06-22 16:44] MED LIST changes: -CALC500T3 PO; +CALC500T64 PO; +PANT40TA2 PO
[2019-06-22] MEDS: NITROGLYCERIN 0.4 MG SL TABS BTL 25'S SL PRN ×2 (16:54→16:58)
[2019-06-22] MEDS ORDERED: NS IV 1000 ML 1,000 ML ONE (16:56)
[2019-06-22 16:59] LABS: BASOPHILS % (AUTO) 0 % (0-10); EOSINOPHILS # (AUTO) 0.1 10^3/uL (0.0-0.3); EOSINOPHILS % (AUTO) 1 % (0-10); HEMATOCRIT 45 % (35-52); HEMOGLOBIN 15.1 G/DL (11.5-16.0); LYMPHOCYTES # (AUTO) 2.8 X 10^3 (1.0-4.0); LYMPHOCYTES % (AUTO) 33 % (12-44); MEAN CORPUSCULAR HEMOGLOBIN 28 PG (25-34); MEAN CORPUSCULAR HGB CONC 34 G/DL (32-36); MEAN CORPUSCULAR VOLUME 83 FL (80-99); MEAN PLATELET VOLUME 12.1 FL (7.4-10.4); MONOCYTES # (AUTO) 0.4 X 10^3 (0.0-1.0); MONOCYTES % (AUTO) 4 % (0-12); NEUTROPHILS # (AUTO) 5.3 X 10^3 (1.8-7.8); NEUTROPHILS % (AUTO) 62 % (42-75); PLATELET COUNT 172 10^3/uL (130-400); RED CELL DISTRIBUTION WIDTH 13.2 % (10.0-14.5); WHITE BLOOD COUNT 8.5 10^3/uL (4.3-11.0)
[2019-06-22] MEDS ORDERED: ASPIRIN 81 MG CHEW (CHILDREN'S ASA) PO ONE (17:00)
[2019-06-22] MEDS ORDERED: NS IV 1000 ML 1,000 ML IV SCH (17:02)
[2019-06-22] MEDS ORDERED: ONDANSETRON 4 MG/2 ML (SDV) Z0FRAN ONE (17:07)
[2019-06-22] MEDS ORDERED: LABETALOL HCL 20 MG/4 ML VIAL ONE (17:10)
[2019-06-22] MEDS ORDERED: morphine INJ 10 MG/ML 1ML (SYR OR VIAL) ONE (17:10)
[2019-06-22] MEDS ORDERED: morphine INJ 10 MG/ML 1ML (SYR OR VIAL) IVP STA (17:12)
[2019-06-22] MEDS ORDERED: ONDANSETRON 4 MG/2 ML (SDV) Z0FRAN IVP ONE (17:15)
[2019-06-22] MEDS ORDERED: LABETALOL HCL 20 MG/4 ML VIAL IV ONE (17:15)
--- NOTE | 2019-06-22 17:24 | ED Chest Pain ---
General Chief Complaint: Chest Pain Stated Complaint: SOA Source: patient History of Present Illness Date Seen by Provider: Jun 22, 2019 Time Seen by Provider: 16:48 Initial Comments PT ARRIVES VIA POV FROM HOME C/O CHEST PAIN--PAIN BEGAN JUST PRIOR TO ARRIVAL, STATES SHE WAS SITTING AT THE TIME. BUT JUST PRIOR TO THAT, SHE HAD WALKED TO THE [facility]UB[facility] OF HER APARTMENT [facility] AND HAD JUST WALKED BACK TO HER APARTMENT PAIN IS IN CENTER OF CHEST AND RADIATES DOWN LEFT ARM RATES PAIN 10/10 C/O SHORTNESS OF BREATH NO SWEATS NO PALPITATIONS NO SWELLING IN LEGS/ FEET OR PAIN IN CALVES. NO NAUSEA/VOMITING HAS HAD 13 STENTS, AND HAD 3 VESSEL CABG A YEAR AGO. HAS NOT HAD TO USE NTG SINCE SHE HAD HER CABG, AND DOES NOT HAVE ANY AT HOME A [facility]. HAS HISTORY OF CHF, HTN AND HYPERLIPIDEMIA HAS NOT SEEN DR. CHANDLER IN OVER 6 MONTHS HAS HAD CHRONIC COUGH SINCE SHE HAD HER CABG, PER PT--IS NO DIFFERENT THAN NORMAL NO FEVER PT DENIES DX WITH COPD, BUT PT SMOKED 5 PPD ALL OF LIFE, QUIT A YEAR AGO. PT ALSO SMOKES MARIJUANA, BUT STATES SHE HAS NOT LATELY BECAUSE IT MAKES HER SICK TO HER STOMACH. PT IS ALSO INSULIN DEPENDENT DIABETIC, --BLOOD GLUCOSE WAS > 200 THIS AM, HAS NOT CHECKED IT SINCE. STATES SHE HAS NOT MISSED ANY DOSES OF HER MEDICATIONS PCP: DR. BANEGAS AT [facility] PARAOPTOMETRIC: DR. CHANDLER Allergies and Home Medications Allergies Coded Allergies: Fish Containing Products (Verified Allergy, Unknown, 01/25/19) FROM UNCODED ALLERGIES ketoprofen (Verified Allergy, Unknown, 01/18/19) mushroom (Verified Allergy, Unknown, 01/25/19) FROM UNCODED ALLERGIES Home Medications Acetaminophen 500 Mg Tablet, 500-1,000 MG PO Q6H PRN for PAIN-MILD, (Reported) Aspirin 81 Mg Tablet.dr, 81 MG PO DAILY, (Reported) Atorvastatin Calcium 40 Mg Tablet, 40 MG PO DAILY, (Reported) Calcium Carbonate 500 Mg Tablet, 500 MG PO UD PRN for INDIGESTION, (Reported) Cholecalciferol (Vitamin D3) 1,000 Unit Tablet, 1,000 UNIT PO DAILY, (Reported) Evolocumab 140 Mg/1 Ml Pen.injctr, 140 MG SQ EVERY 14 DAYS, (Reported) Furosemide 20 Mg Tablet, 20 MG PO PRN Prescribed by: FABY CHANDLER on 12/09/17 1321 Insulin Aspart 100 Unit/1 Ml Susp, SQ AC, (Reported) INJECT 8 UNITS WITH MEALS PLUS 0-14 UNITS ON SLIDING SCALE Insulin Detemir 100 Unit/1 Ml Insuln.pen, 26 UNITS SQ HS, (Reported) Lisinopril 5 Mg Tablet, 5 MG PO DAILY, (Reported) Metformin HCl 1,000 Mg Tab.er.24, 1,000 MG PO BID WITH MEALS, (Reported) Metoprolol Succinate 25 Mg Tab.er.24h, 25 MG PO DAILY, (Reported) Nitroglycerin 0.4 Mg Tab.subl, 0.4 MG SL UD PRN for CHEST PAIN, (Reported) Ondansetron 4 Mg Tab.rapdis, 4 MG PO Q6H PRN for NAUSEA/VOMITING Prescribed by: DAIN SHEPHERD on 07/25/18 0532 Oxycodone HCl/Acetaminophen 1 Each Tablet, 1-2 TAB PO Q6H PRN for PAIN-MODERATE, (Reported) Pantoprazole Sodium 40 Mg Tablet.dr, 40 MG PO DAILY Prescribed by: JESS NEWBERRY on 01/25/19 1634 Sennosides/Docusate Sodium 1 Each Tablet, 2 TAB PO BID, (Reported) Spironolactone 25 Mg Tablet, 12.5 MG PO DAILY, (Reported) TAKES 1/2 (25MG) TABLET Tramadol HCl 50 Mg Tablet, 50 MG PO Q6H PRN for PAIN-MODERATE, (Reported) Patient Home Medication List Home Medication List Reviewed: Yes Review of Systems Review of Systems Constitutional: no symptoms reported; No chills, No diaphoresis, No dizziness, No fever, No malaise, No weakness EENTM: No Symptoms Reported Respiratory: See HPI, Cough, Shortness of Air, SOA With Exertion, SOA at Rest; Denies Wheezing Cardiovascular: See HPI, Chest Pain; Denies Edema, Denies Irregular Heart Rate, Denies Lightheadedness, Denies Palpitations, Denies Syncope Gastrointestinal: No Symptoms Reported; Denies Abdominal Pain, Denies Nausea, Denies Vomiting Genitourinary: No Symptoms Reported Musculoskeletal: see HPI (RADIATION OF PAIN DOWN LEFT ARM), other (CHRONIC BACK, HIP AND LEG PAIN ) Skin: no symptoms reported Psychiatric/Neurological: No Symptoms Reported; Denies Headache, Denies Numbness, Denies Weakness; Other (LEGS AND FEET TINGLE AT TIMES) Endocrine: No Symptoms Reported Hematologic/Lymphatic: No Symptoms Reported Past [id number] Hx Past Med/Social Hx: Reviewed and Corrections made Patient Social History Alcohol Use: Denies Use Recreational Drug Use: Yes (THC) Drug of Choice: THC Smoking Status: Former Smoker (SMOKED 5 PPD, ALL OF LIFE, QUIT IN 2018) Type Used: Cigarettes Former Smoker, Quit: Jul 13, 2017 2nd Hand Smoke Exposure: Yes ( IS HEAVY SMOKER) Recent Hopitalizations: No (CABG AT --DISMISSED 12/08/17 ) Physical Abuse: No Sexual Abuse: No Immunizations Up To Date Tetanus Booster (TDap): Less than 5yrs PED Vaccines UTD: No Date of Pneumonia Vaccine: May 11, 2015 Date of Influenza Vaccine: Apr 19, 2018 Seasonal Allergies Seasonal Allergies: No Past Medical History Surgeries: Yes (CARDIAC CATHS WITH STENTS X 13, 3 VESSEL CABG IN 2018; HYST/? BSO ?; HENMORRHOIDECTOMY; BTL; CHOLECYSTECTOMY; BILATERAL CARPAL TUNNEL; RIGHT KNEE SCOPE X 2) Cardiac, CABG, Coronary Stent, Gallbladder, Oophorectomy, Orthopedic, Rectal, Tonsillectomy, 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 Respiratory: Yes (SMOKED 5 PPD ALL OF LIFE, QUIT IN 2018) Chronic Bronchitis, COPD Currently Using CPAP: No Currently Using BIPAP: No Cardiac: Yes (STENTS X 13; 3 VESSEL CABG 12/02/17 AT ; CHF; RBBB) Coronary Artery Disease, Heart Attack, High Cholesterol, Hypertension Neurological: Yes (MILD SPEECH IMPAIRMENT) Neuropathy, Stroke, TIA 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 Disorders: Yes (CERVICAL CANCER) Female 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 Disorders: 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, 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, Menopausal Sexually Transmitted Disease: No HIV/AIDS: No Genitourinary: No Gastrointestinal: Yes Gastroesophageal Reflux, Hemorrhoids, Ulcer Musculoskeletal: Yes (BILATERAL CARPAL TUNNEL, RIGHT KNEE SCOPE X 2; CHRONIC BACK PAIN, HIP PAIN, LEG PAIN) Arthritis, Chronic Back Pain Endocrine: Yes Diabetes, Insulin dep HEENT: Yes (TEETH REMOVED; DIABETIC RETINOPATHY) Cancer: Yes (S/P SURGERY ONLY) Cervical Did You Recieve Any Treatments: Yes What Type of Treatment Did You: Surgical Intervention Psychosocial: Yes Anxiety Integumentary: No Blood Disorders: No Family Medical History Alcoholism Arthritis Asthma Cardiovascular disease Cataracts Colon cancer Completed stroke Coronary thrombosis Diabetes mellitus Gastroenteritis Glaucoma Headache disorder Hypertension Kidney disease Psychosocial problem Respiratory disorder Seizure disorder Severe allergy Thyroid disease Visual disorder Heart Disease, Hypertension Physical Exam Vital Signs Vital Signs - First Documented Capillary Refill : Less Than 3 Seconds Height, Weight, BMI Height: 5'1.00" Weight: 164lbs. 0.0oz. [id number]; 31.0 BMI Method:Stated General Appearance: No Apparent Distress, WD/WN, Other (SOMEWHAT LETHARGIC, BUT DOES NOT APPEAR TO BE IN ANY ACUTE DISTRESS. ) HEENT: PERRL/EOMI, Other (EDENTULOUS) Neck: Full Range of Motion, Normal Inspection, Non Tender, Supple; No Carotid Bruit, No JVD Respiratory: Chest Non Tender, Normal Breath Sounds, No Accessory Muscle Use, No Respiratory Distress Cardiovascular: Regular Rate, Rhythm, No Edema, No JVD, No Murmur, Normal Peripheral Pulses Gastrointestinal: Normal Bowel Sounds, No Organomegaly, No Pulsatile Mass, Non Tender, Soft Extremity: Normal Capillary Refill, Normal Inspection, Normal Range of Motion, Non Tender, No Calf Tenderness, No Pedal Edema Neurologic/Psychiatric: Alert, Oriented x3, No Motor/Sensory Deficits, Normal 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, 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 Norm as Tested Skin: Normal Color, Warm/Dry; No Rash Progress/Results/Core Measures Results/Orders Lab Results Laboratory Tests Test 06/22/19 16:54 06/22/19 16:57 06/22/19 17:30 06/22/19 19:07 Range/Units White Blood Count 8.5 4.3-11.0 10^3/uL Red Blood Count 5.39 4.35-5.85 10^6/uL Hemoglobin 15.1 11.5-16.0 G/DL Hematocrit 45 35-52 % Mean Corpuscular Volume 83 80-99 FL Mean Corpuscular Hemoglobin 28 25-34 PG Mean Corpuscular Hemoglobin Concent 34 32-36 G/DL Red Cell Distribution Width 13.2 10.0-14.5 % Platelet Count 172 130-400 10^3/uL Mean Platelet Volume 12.1 H 7.4-10.4 FL Neutrophils (%) (Auto) 62 42-75 % Lymphocytes (%) (Auto) 33 12-44 % Monocytes (%) (Auto) 4 0-12 % Eosinophils (%) (Auto) 1 0-10 % Basophils (%) (Auto) 0 0-10 % Neutrophils # (Auto) 5.3 1.8-7.8 X 10^3 Lymphocytes # (Auto) 2.8 1.0-4.0 X 10^3 Monocytes # (Auto) 0.4 0.0-1.0 X 10^3 Eosinophils # (Auto) 0.1 0.0-0.3 10^3/uL Basophils # (Auto) 0.0 0.0-0.1 10^3/uL B-Type Natriuretic Peptide 188.7 H <100.0 PG/ML Glucometer 381 H 296 H 70-110 MG/DL Prothrombin Time 14.3 12.2-14.7 SEC INR Comment 1.1 0.8-1.4 Activated Partial Thromboplast Time 26 24-35 SEC Sodium Level 136 135-145 MMOL/L Potassium Level 3.5 L 3.6-5.0 MMOL/L Chloride Level 105 98-107 MMOL/L Carbon Dioxide Level 19 L 21-32 MMOL/L Anion Gap 12 5-14 MMOL/L Blood Urea Nitrogen 17 7-18 MG/DL Creatinine 0.90 0.60-1.30 MG/DL Estimat Glomerular Filtration Rate > 60 BUN/Creatinine Ratio 19 Glucose Level 355 H 70-105 MG/DL Calcium Level 8.1 L 8.5-10.1 MG/DL Corrected Calcium 8.6 8.5-10.1 MG/DL Magnesium Level 1.7 1.6-2.4 MG/DL Total Bilirubin 0.4 0.1-1.0 MG/DL Aspartate Amino Transf (AST/SGOT) 11 5-34 U/L Alanine Aminotransferase (ALT/SGPT) 8 0-55 U/L Alkaline Phosphatase 72 40-136 U/L Total Creatine Kinase 58 29-168 U/L Creatine Kinase MB 2.7 <6.6 NG/ML Myoglobin 37.3 10.0-92.0 NG/ML Troponin I < 0.028 <0.028 NG/ML Total Protein 6.7 6.4-8.2 GM/DL Albumin 3.4 3.2-4.5 GM/DL Amylase Level 30 25-125 U/L Lipase 15 8-78 U/L My Orders Orders - AMNA VELA DO Ed Iv/Invasive Line Start (06/22/19 16:49) Ekg Tracing (06/22/19 16:49) O2 (06/22/19 16:49) Monitor-Rhythm Ecg Trace Only (06/22/19 16:49) Chest 1 View, Ap/Pa Only (06/22/19 16:49) BNP (06/22/19 16:49) Cbc With Automated Diff (06/22/19 16:49) Comprehensive Metabolic Panel (06/22/19 16:49) Creatine Kinase (06/22/19 16:49) Creatine Kinase Mb (06/22/19 16:49) Magnesium (06/22/19 16:49) Protime With Inr (06/22/19 16:49) Partial Thromboplastin Time (06/22/19 16:49) Myoglobin Serum (06/22/19 16:49) Troponin I (06/22/19 16:49) Lipase (06/22/19 16:50) Amylase (06/22/19 16:50) Nitroglycerin 0.4 Mg Btl 25's (Nitrostat (06/22/19 17:00) Aspirin Chewable Tablet (Baby Aspirin Ch (06/22/19 17:00) Ns Iv 1000 Ml (Sodium Chloride 0.9%) (06/22/19 16:56) Ed Iv/Invasive Line Start (06/22/19 17:02) Ns Iv 1000 Ml (Sodium Chloride 0.9%) (06/22/19 17:02) Ondansetron Injection (Zofran Injectio (06/22/19 17:07) Labetalol Injection (Normodyne Injection (06/22/19 17:15) Morphine Injection (Morphine Injection (06/22/19 17:12) Ondansetron Injection (Zofran Injectio (06/22/19 17:15) Ekg Tracing (06/22/19 17:12) Morphine Injection (Morphine Injection (06/22/19 17:10) Labetalol Injection (Normodyne Injection (06/22/19 17:10) Insulin (Regular) Human (Humulin R (Per (06/22/19 18:00) Medications Given in ED Current Medications Medications Dose Ordered Sig/Kelli Route Start Time Stop Time Status Last Admin Dose Admin Aspirin 324 mg ONCE ONCE PO 06/22/19 17:00 06/22/19 17:01 DC 06/22/19 16:58 324 MG Insulin Human Regular 20 unit ONCE ONCE SC 06/22/19 18:00 06/22/19 18:01 DC 06/22/19 18:21 20 UNIT Labetalol HCl 20 mg ONCE ONCE IV 06/22/19 17:15 06/22/19 17:16 DC 06/22/19 17:16 20 MG Nitroglycerin 0.4 mg UD PRN SL 06/22/19 17:00 06/22/19 16:54 0.4 MG Ondansetron HCl 8 mg ONCE ONCE IVP 06/22/19 17:15 06/22/19 17:16 DC 06/22/19 17:19 8 MG Sodium Chloride 1,000 ml @ ud STK-MED ONCE .ROUTE 06/22/19 16:56 06/22/19 17:00 DC 06/22/19 17:03 1,000 MLS/HR Vital Signs/I&O 06/22/19 06/22/19 06/22/19 16:45 16:45 16:45 Temp 36.6 Pulse 102 Resp 22 B/P (MAP) 154/120 (131) Pulse Ox 97 97 O2 Delivery Room Air Nasal Cannula Nasal Cannula O2 Flow Rate 2.0 2.00 Progress Progress Note : Progress Note GIVEN 4 BABY ASPIRIN GIVEN NTG X 1, WITH SIGNIFICANT IMPROVEMENT IN PAIN--PAIN DOWN TO 4/10 FROM 10/10, AND NO RADIATION OF PAIN INTO LEFT ARM PT HAD TEMPORARY DECREASE IN BP, THEN BP GRADUALLY WENT BACK UP WITHOUT TREATMENT 1708--PT NOW SUDDENLY NAUSEATE AND VOMITING, AND BP VERY ELEVATED AGAIN. NO INCREASE IN PAIN, BUT GIVEN ZOFRAN, MORPHINE AND LABETALOL. REPEAT EKG IS UNCHANGED PT HAD RESOLUTION OF ALL SYMPTOMS WITH THE ABOVE BP DOWN WITH MEDICATIONS Initial ECG Impression Date: Jun 22, 2019 Initial ECG Impression Time: 16:47 Initial ECG Rate: 89 Initial ECG Rhythm: Normal Sinus (RBBB) Initial ECG Impression: Nonspecific Changes (OLD INFERIOR AND ANTERIOR/LATERAL Q WAVES, ) Initial ECG Comparisson: Unchanged EKG : EKG Time: 17:13 Rate: 93 Rhythm: Normal Sinus ECG Comparisson: Unchanged Diagnostic Imaging Comments CXR--NO ACUTE PROCESS, PER RADIOLOGIST REPORT Reviewed: Reviewed by Me Departure Communication (Admissions) THIS FACILITY IS [facility] [address]--CALLED [facility], PT/FAMILY PREFERENCE. MESSAGE LEFT 1819--SPOKE WITH [facility]20--SPOKE WITH DR. LAFLEUR, ACCEPTS PT FOR ADMIT/TRANSFER. NO ADDITIONAL RECOMMENDATIONS. Impression Primary Impression: Chest pain Additional Impressions: HTN (hypertension) CAD WITH MULTIPLE INTERVENTIONS AND 3 VESSEL CABG IDDM (insulin dependent diabetes mellitus) Disposition: XFER SHT-TRM HOSP Condition: Improved Transfer Transfer Reason: Diversion Transfer Facility: [facility] Method of Transfer: EMS Departure-Patient Inst. Referrals: [facility] (PCP/Family) Primary Care Physician AMNA VELA DO Jun 22, 2019 17:23 POS
--- NOTE | 2019-06-22 17:28 | Diagnostic Imaging Report ---
EXAM: CHEST 1 VIEW, AP/PA ONLY. INDICATION: Chest pain. Fatigue. COMPARISON: 07/25/2018. FINDINGS: Normal heart size and central pulmonary vascularity. Sternotomy. No focal pulmonary opacity, pleural effusion or pneumothorax. No acute osseous findings. Chronic right rib fractures. Coronary stents. IMPRESSION: No acute cardiopulmonary findings. Dictated by: Dictated on workstation # [id number]
[2019-06-22 17:54] LABS: ALANINE AMINOTRANSFERASE 8 U/L (0-55); ALBUMIN 3.4 GM/DL (3.2-4.5); ALKALINE PHOSPHATASE 72 U/L (40-136); BILIRUBIN,TOTAL 0.4 MG/DL (0.1-1.0); BUN/CREATININE RATIO 19; CALCIUM 8.1 MG/DL (8.5-10.1); CARBON DIOXIDE 19 MMOL/L (21-32); CHLORIDE 105 MMOL/L (98-107); CREATINE KINASE 58 U/L (29-168); GFR ESTIMATED > 60; GLUCOSE 355 MG/DL (70-105); MAGNESIUM 1.7 MG/DL (1.6-2.4); POTASSIUM 3.5 MMOL/L (3.6-5.0); SODIUM 136 MMOL/L (135-145); TOTAL PROTEIN 6.7 GM/DL (6.4-8.2)
[2019-06-22 17:57] LABS: INR 1.1 (0.8-1.4); PROTHROMBIN TIME PATIENT 14.3 SEC (12.2-14.7)
[2019-06-22] MEDS ORDERED: inSUlin (REGULAR) HUMAN 1 UNIT/0.01 ML (CHARGE PER UNIT) SC ONE (18:00)
[2019-06-22 18:01] LABS: CREATINE KINASE MB 2.7 NG/ML (<6.6)
[2019-06-22 18:03] LABS: AMYLASE 30 U/L (25-125); LIPASE 15 U/L (8-78)
--- NOTE | 2019-06-22 18:37 | NUR ---
CONSENT FOR TRANSFER SIGNED BY PT
--- NOTE | 2019-06-22 19:00 | NUR ---
[facility] NOTIFIED OF TRANSFER
[2019-06-22 19:36] VITALS: BP 154/87
--- NOTE | 2019-06-22 19:36 | NUR ---
EMS ARRIVES FOR TRANSFER TO [place]
== END 2019-06-22 19:38 | disposition short-term general hospital (02) ==
LOC: EDUNIT# 16:44 → ER 16:45
DX: I10 Essential (primary) hypertension (principal); I25.10 Atherosclerotic heart disease of native coronary artery without angina pectoris; E11.40 Type 2 diabetes mellitus with diabetic neuropathy, unspecified; I25.2 Old myocardial infarction; E78.00 Pure hypercholesterolemia, unspecified; J44.9 Chronic obstructive pulmonary disease, unspecified; F41.9 Anxiety disorder, unspecified; K21.9 Gastro-esophageal reflux disease without esophagitis; Z85.41 Personal history of malignant neoplasm of cervix uteri; Z86.73 Personal history of transient ischemic attack (TIA), and cerebral infarction without residual deficits; Z95.0 Presence of cardiac pacemaker; Z95.5 Presence of coronary angioplasty implant and graft; Z88.8 Allergy status to other drugs, medicaments and biological substances; Z79.82 Long term (current) use of aspirin; Z79.4 Long term (current) use of insulin; Z87.891 Personal history of nicotine dependence; Z90.49 Acquired absence of other specified parts of digestive tract; Z98.51 Tubal ligation status; Z90.89 Acquired absence of other organs; Z82.49 Family history of ischemic heart disease and other diseases of the circulatory system; Z80.0 Family history of malignant neoplasm of digestive organs
CPT/HCPCS: 36415; 71045; 80053; 82150; 82550; 82553; 82962; 83690; 83735; 83874; 83880; 84484; 85025; 85610; 85730; 93005; 93041; 96361; 96372; 96374; 96375

== ENCOUNTER → 2020-01-17 | Outpatient (CLI) | payer MEDICARE ==
[~2020-01-17] MED LIST changes: -EVOL140P SQ; +EVOL140P3 SQ; -METO-387 PO; -METO-395 PO; +MTP100TCR PO; +MTP25TSR PO; -TRAM50TA2 PO; +TRM50T PO
--- NOTE | 2020-01-17 13:05 | Diagnostic Imaging Report ---
INDICATION: Routine screening. Comparison is made with prior mammogram 12/03/2018. 2-D and 3-D bilateral screening mammography was performed with CAD. Both breasts remain heterogeneously dense, limiting the sensitivity of mammography. Numerous benign calcifications are noted throughout both breasts. The parenchymal pattern appears to be stable. No dominant mass or malignant appearing microcalcifications are seen. Axillae are unremarkable. IMPRESSION: BI-RADS Category 2 No mammographic features suspicious for malignancy are identified. ACR BI-RADS Category 2: Benign findings. Result letter will be mailed to the patient. Note: At least 10% of breast cancer is not imaged by mammography. Dictated by: Dictated on workstation # [id number]
== END ==
LOC: RAD 09:36
PROVIDERS: ATTEND Family Medicine
DX: Z12.31 Encounter for screening mammogram for malignant neoplasm of breast (principal)
CPT/HCPCS: 77063; 77067

== ENCOUNTER → 2020-04-03 | Outpatient (CLI) | payer MEDICARE ==
[~2020-04-03] MED LIST changes: +ASPI-1238 PO; -ASPI-983 PO
--- NOTE | 2020-04-03 15:13 | Diagnostic Imaging Report ---
CT CHEST SCREENING WO TECHNIQUE: Low-dose unenhanced CT of the chest was performed according to the screening protocol. Coronal MIP and sagittal MPR reformats are created. Automatic exposure controls were utilized to keep dose as low as reasonably achievable. INDICATION: 30 pack year history of smoking. Quit smoking 3 years ago. COMPARISON: CT chest of 12/03/2018. FINDINGS: Pulmonary findings: No endoluminal nodule within the trachea. No pulmonary mass or consolidation. No pulmonary nodule has developed that would be suspicious for clinically active lung cancer. Calcified right lower lobe pulmonary nodule is due to old granulomatous infection. Groundglass attenuation in the left lower lobe is unchanged and likely due to scarring. Extrapulmonary findings: No axillary lymphadenopathy or pleural effusion. No mediastinal, discrete hilar or juxtaphrenic lymphadenopathy. The heart is normal in size and without pericardial effusion. CABG has been performed. Normal caliber thoracic aorta. IMPRESSION: No change to indicate clinically active lung cancer. Lung-RADS category: 1 - Negative Recommendations: Continued annual screening with low-dose CT in 12 months. Dictated by: Dictated on workstation # [id number]
== END ==
LOC: RAD 12:48
PROVIDERS: ATTEND Family Medicine
DX: Z12.2 Encounter for screening for malignant neoplasm of respiratory organs (principal); Z87.891 Personal history of nicotine dependence

== ENCOUNTER 2020-04-22 14:13 | Emergency (ER) | payer MEDICARE ==
[~2020-04-22] VITALS: Ht 157.4 cm; Wt 69.3 kg
[2020-04-22 14:32] LABS: BASOPHILS % (AUTO) 0 % (0-10); EOSINOPHILS % (AUTO) 0 % (0-10); HEMATOCRIT 44 % (35-52); HEMOGLOBIN 14.7 g/dL (11.5-16.0); LYMPHOCYTES # (AUTO) 2.1 10^3/uL (1.0-4.0); LYMPHOCYTES % (AUTO) 28 % (12-44); MEAN CORPUSCULAR HEMOGLOBIN 29 pg (25-34); MEAN CORPUSCULAR HGB CONC 34 g/dL (32-36); MEAN CORPUSCULAR VOLUME 86 fL (80-99); MEAN PLATELET VOLUME 12.7 fL (9.0-12.2); MONOCYTES # (AUTO) 0.4 10^3/uL (0.0-1.0); MONOCYTES % (AUTO) 5 % (0-12); NEUTROPHILS # (AUTO) 5.1 10^3/uL (1.8-7.8); NEUTROPHILS % (AUTO) 66 % (42-75); PLATELET COUNT 157 10^3/uL (130-400); WHITE BLOOD COUNT 7.6 10^3/uL (4.3-11.0)
[2020-04-22 14:34] LABS: ALBUMIN 3.8 GM/DL (3.2-4.5); POTASSIUM 4.3 MMOL/L (3.6-5.0)
[2020-04-22 14:36] LABS: CALCIUM 9.2 MG/DL (8.5-10.1)
[2020-04-22 14:37] LABS: TOTAL PROTEIN 7.7 GM/DL (6.4-8.2)
[2020-04-22 14:39] LABS: BILIRUBIN,TOTAL 0.5 MG/DL (0.1-1.0)
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
[2020-04-22] MEDS ORDERED: ASPIRIN 81 MG CHEW (CHILDREN'S ASA) PO ONE (15:00)
--- NOTE | 2020-04-22 15:05 | Diagnostic Imaging Report ---
EXAMINATION: Chest 1 view. HISTORY: HTN. COMPARISON: Chest radiograph 06/22/2019. FINDINGS: Stable enlargement of the cardiac silhouette with surgical changes from median sternotomy. Pulmonary vasculature is normal. The lungs are clear without consolidation, pleural effusion or pneumothorax. The osseous structures are intact. IMPRESSION: No acute radiographic abnormality in the chest. Dictated by: Dictated on workstation # [id number]
[2020-04-22] MEDS ORDERED: inSUlin (REGULAR) HUMAN 1 UNIT/0.01 ML (CHARGE PER UNIT) SC STA (15:32)
[2020-04-22] MEDS ORDERED: NS IV 1000 ML 1,000 ML IV SCH (15:34)
[2020-04-22 16:48] VITALS: BP 125/76
== END 2020-04-22 16:48 | disposition home or self-care (01) ==
LOC: EDUNIT# 14:13 → ER 14:14
DX: I10 Essential (primary) hypertension (principal); I25.10 Atherosclerotic heart disease of native coronary artery without angina pectoris; I25.2 Old myocardial infarction; F43.9 Reaction to severe stress, unspecified; E78.00 Pure hypercholesterolemia, unspecified; K21.9 Gastro-esophageal reflux disease without esophagitis; E11.9 Type 2 diabetes mellitus without complications; Z82.49 Family history of ischemic heart disease and other diseases of the circulatory system; Z80.0 Family history of malignant neoplasm of digestive organs; Z82.61 Family history of arthritis; Z83.3 Family history of diabetes mellitus; Z85.41 Personal history of malignant neoplasm of cervix uteri; Z95.5 Presence of coronary angioplasty implant and graft; Z95.1 Presence of aortocoronary bypass graft; Z79.82 Long term (current) use of aspirin; Z79.4 Long term (current) use of insulin; Z87.891 Personal history of nicotine dependence; Z88.8 Allergy status to other drugs, medicaments and biological substances
CPT/HCPCS: 36415; 71045; 80053; 82962; 84484; 85025; 93005

== ENCOUNTER 2020-12-18 13:40 | Emergency (ER) | payer MEDICARE ==
[~2020-12-18] VITALS: Ht 154 cm; Wt 71.0 kg
[~2020-12-18 13:40] MED LIST changes: +AMLO-251 PO; -AMLO10TA7 PO; -ISOS30TA3 PO; +ISOS30TA82 PO; -LISI-552 PO; -LISI-556 PO; +LISI-729 PO; +LISI20TA26 PO; -LISI40TA PO; +LISI40TA9 PO; -OXYC-471 PO; +OXYC1TAB11 PO
--- NOTE | 2020-12-18 14:24 | ED Back Pain ---
General Chief Complaint: Back Problems Stated Complaint: BACK,HIP PAIN Nursing Triage Note: ARRIVED VIA WC TO FT1. COMPLAINS OF BILAT HIP AND LOW BACK PAIN. DENIES INJURY. Nursing Sepsis Screen: No Definite Risk Source of Information: Patient Exam Limitations: No Limitations History of Present Illness Date Seen by Provider: Dec 18, 2020 Time Seen by Provider: 14:11 Initial Comments Patient is a 65-year-old female who presents to the emergency department today with a chief complaint of low back pain. Patient states that she was visiting her daughter last week and sleeping on the couch and states that she woke up with significant pain in her back radiating down her legs. Patient denies any history of falls or trauma. No injuries reported. She states that her legs feel "". But she does have sensation. She has not had any increased incontinence. She is not having any paresthesias. All other review of systems reviewed and negative except as stated above. Location: Lumbar Spine Timing/Duration: 2-3 Days Severity: Severe Pain/Injury Location: Back Radiation: Lower Legs Associated Symptoms: muscle spasms Allergies and Home Medications Allergies Coded Allergies: Fish Containing Products (Verified Allergy, Unknown, 01/25/19) FROM UNCODED ALLERGIES ketoprofen (Verified Allergy, Unknown, 01/18/19) mushroom (Verified Allergy, Unknown, 01/25/19) FROM UNCODED ALLERGIES Home Medications Acetaminophen 500 Mg Tablet, 500-1,000 MG PO Q6H PRN for PAIN-MILD, (Reported) Aspirin 81 Mg Tablet.dr, 81 MG PO DAILY, (Reported) Atorvastatin Calcium 40 Mg Tablet, 40 MG PO DAILY, (Reported) Calcium Carbonate 500 Mg Tablet, 500 MG PO UD PRN for INDIGESTION, (Reported) Cholecalciferol (Vitamin D3) 1,000 Unit Tablet, 1,000 UNIT PO DAILY, (Reported) Evolocumab 140 Mg/1 Ml Pen.injctr, 140 MG SQ EVERY 14 DAYS, (Reported) Furosemide 20 Mg Tablet, 20 MG PO PRN Prescribed by: FABY CHANDLER on 12/09/17 1321 Insulin Aspart 100 Unit/1 Ml Susp, SQ AC, (Reported) INJECT 8 UNITS WITH MEALS PLUS 0-14 UNITS ON SLIDING SCALE Insulin Detemir 100 Unit/1 Ml Insuln.pen, 26 UNITS SQ HS, (Reported) Lisinopril 5 Mg Tablet, 5 MG PO DAILY, (Reported) Metformin HCl 1,000 Mg Tab.er.24, 1,000 MG PO BID WITH MEALS, (Reported) Metoprolol Succinate 25 Mg Tab.er.24h, 25 MG PO DAILY, (Reported) Nitroglycerin 0.4 Mg Tab.subl, 0.4 MG SL UD PRN for CHEST PAIN, (Reported) Ondansetron 4 Mg Tab.rapdis, 4 MG PO Q6H PRN for NAUSEA/VOMITING Prescribed by: DAIN SHEPHERD on 07/25/18 0532 Oxycodone HCl/Acetaminophen 1 Each Tablet, 1-2 TAB PO Q6H PRN for PAIN-MODERATE, (Reported) Pantoprazole Sodium 40 Mg Tablet.dr, 40 MG PO DAILY Prescribed by: JESS NEWBERRY on 01/25/19 1634 Sennosides/Docusate Sodium 1 Each Tablet, 2 TAB PO BID, (Reported) Spironolactone 25 Mg Tablet, 12.5 MG PO DAILY, (Reported) TAKES 1/2 (25MG) TABLET Tramadol HCl 50 Mg Tablet, 50 MG PO Q6H PRN for PAIN-MODERATE, (Reported) Patient Home Medication List Home Medication List Reviewed: Yes Review of Systems Constitutional: see HPI EENTM: no symptoms reported Respiratory: no symptoms reported Cardiovascular: no symptoms reported Gastrointestinal: no symptoms reported Genitourinary: no symptoms reported; No decreased output, No frequency, No hematuria, No hesitancy, No incontinence Musculoskeletal: back pain Skin: no symptoms reported Psychiatric/Neurological: Denies Numbness, Denies Paresthesia All Other Systems Reviewed Negative Unless Noted: Yes Past Fzoisfe-Fnlizt-Maetxg Hx Patient Social History Drug of Choice: THC Type Used: Cigarettes Former Smoker, Quit: Jul 13, 2017 2nd Hand Smoke Exposure: Yes ( IS HEAVY SMOKER) Recent Infectious Disease Expo: No Recent Hopitalizations: No (CABG AT [facility]--DISMISSED 12/08/17 ) Immunizations Up To Date Tetanus Booster (TDap): Less than 5yrs PED Vaccines UTD: No Date of Pneumonia Vaccine: May 11, 2015 Date of Influenza Vaccine: Apr 19, 2018 Seasonal Allergies Seasonal Allergies: No Past Medical History Surgeries: Yes (lense inserted in L eye) Cardiac, CABG, Coronary Stent, Gallbladder, Oophorectomy, Orthopedic, Rectal, Tonsillectomy, 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 Respiratory: Yes (SMOKED 5 PPD ALL OF LIFE, QUIT IN 2018) Chronic Bronchitis, COPD Currently Using CPAP: No Currently Using BIPAP: No Cardiac: Yes (STENTS X 13; 3 VESSEL CABG 12/02/17 AT ; CHF; RBBB) Coronary Artery Disease, Heart Attack, High Cholesterol, Hypertension Neurological: Yes (MILD SPEECH IMPAIRMENT) Neuropathy, Stroke, TIA 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 Disorders: Yes (CERVICAL CANCER) Female 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 Disorders: Denies 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: Hysterectomy, 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, Menopausal Sexually Transmitted Disease: No HIV/AIDS: No Genitourinary: No Gastrointestinal: Yes Gastroesophageal Reflux, Hemorrhoids, Ulcer Musculoskeletal: Yes Arthritis, Chronic Back Pain Endocrine: Yes Diabetes, Insulin dep HEENT: Yes (TEETH REMOVED; DIABETIC RETINOPATHY) Cancer: Yes (S/P SURGERY ONLY) Cervical Did You Recieve Any Treatments: Yes What Type of Treatment Did You: Surgical Intervention Psychosocial: Yes Anxiety Integumentary: No Blood Disorders: No Family Medical History Alcoholism Arthritis Asthma Cardiovascular disease Cataracts Colon cancer Completed stroke Coronary thrombosis Diabetes mellitus Gastroenteritis Glaucoma Headache disorder Hypertension Kidney disease Psychosocial problem Respiratory disorder Seizure disorder Severe allergy Thyroid disease Visual disorder Heart Disease, Hypertension Physical Exam Vital Signs Vital Signs - First Documented 12/18/20 13:50 Temp 36.2 Pulse 92 Resp 16 B/P (MAP) 136/79 (98) Pulse Ox 96 O2 Delivery Room Air Capillary Refill : Less Than 3 Seconds Height, Weight, BMI Height: 5'1.00" Weight: 164lbs. 0.0oz. 74.265021so; 29.00 BMI Method:Stated General Appearance: WD/WN, Anxious Cardiovascular: Regular Rate, Rhythm Respiratory: No Accessory Muscle Use, No Respiratory Distress Gastrointestinal: Non Tender, Soft Back: Normal Inspection, Other (Paraspinous muscle tenderness lower thoracic spine and upper lumbar spine more on the right than the left. No overlying rashes or erythema. 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 No incontinence or urinary retention) Skin: Normal Color, Warm/Dry Progress/Results/Core Measures Results/Orders My Orders Orders - MARIO JACOBSEN MD Orphenadrine Inj (Ed Only) (Norflex Inje (12/18/20 14:30) Hydrocodone/Apap 7.5/325 Tab (Lortab 7. (12/18/20 14:30) Medications Given in ED Current Medications Medications Dose Ordered Sig/Kelli Route Start Time Stop Time Status Last Admin Dose Admin Acetaminophen/ Hydrocodone Bitart 1 ea ONCE ONCE PO 12/18/20 14:30 12/18/20 14:31 DC 12/18/20 14:40 1 EA Orphenadrine Citrate 60 mg ONCE ONCE IM 12/18/20 14:30 12/18/20 14:31 DC 12/18/20 14:40 60 MG Vital Signs/I&O 12/18/20 13:50 Temp 36.2 Pulse 92 Resp 16 B/P (MAP) 136/79 (98) Pulse Ox 96 O2 Delivery Room Air Blood Pressure Mean: 98 Progress Progress Note : Time: 15:37 Progress Note Patient states that she still has some discomfort in her low back however is fee ling better. She is sitting up on the side of the bed. She is able to get up to semistanding position. I have advised her to use wzhw-dih-wutbbye lidocaine patches as well as pain medications and muscle relaxers. Both she and her verbalized understanding and are agreeable with the plan of care. All questions are sought and answered. Patient is stable for discharge. Departure Impression Primary Impression: Low back pain Disposition: 01 HOME, SELF-CARE Condition: Stable Departure-Patient Inst. Decision time for Depature: 15:38 Referrals: ASHLEY BANEGAS MD (PCP/Family) Primary Care Physician Patient Instructions: Low Back Pain (DC) Add. Discharge Instructions: Use heating pads to the low back as well as [id number]-[id number] lidocaine patches. Please be sure and follow the instructions on the packaging. Pain medications 1 every 6 hours as needed. Also muscle relaxers 1 3 times daily as needed. Follow-up with your primary care physician. Return to the emergency room for any new, concerning or emergent complaints. Please return for any problems with increasing/worseing incontinence, numbness to the legs or groin or loss of the ability to move your legs. Scripts Hydrocodone/Acetaminophen (Hydrocodone-Acetamin 5-325 mg) 1 Each Tablet 1 TAB PO Q6H PRN for PAIN-MODERATE (5-7), #12 TAB Prov: MARIO JACOBSEN MD 12/18/20 Cyclobenzaprine HCl (Cyclobenzaprine HCl) 10 Mg Tablet 10 MG PO TID for muscle spasm, #12 TAB Prov: MARIO JACOBSEN MD 12/18/20 MARIO JACOBSEN MD Dec 18, 2020 14:23
[2020-12-18] MEDS ORDERED: ORPHENADRINE 60 MG/2 ML (NORFLEX) AMP (ED ONLY) IM ONE (14:30)
[2020-12-18] MEDS ORDERED: HYDROcodone/APAP 7.5 MG/325 MG (LORTAB, LORCET PLUS) TABLET PO ONE (14:30)
[2020-12-18] MEDS ORDERED: CYCL10TA9 PO (15:40)
[2020-12-18] MEDS ORDERED: ACHD5005 PO (15:40)
[2020-12-18 15:45] VITALS: BP 136/79
== END 2020-12-18 15:45 | disposition home or self-care (01) ==
LOC: EDUNIT# 13:40 → ER 13:42
DX: M54.5 Low back pain (principal); M54.6 Pain in thoracic spine; I11.0 Hypertensive heart disease with heart failure; I50.9 Heart failure, unspecified; E11.40 Type 2 diabetes mellitus with diabetic neuropathy, unspecified; J44.9 Chronic obstructive pulmonary disease, unspecified; E78.00 Pure hypercholesterolemia, unspecified; I25.10 Atherosclerotic heart disease of native coronary artery without angina pectoris; I25.2 Old myocardial infarction; K21.9 Gastro-esophageal reflux disease without esophagitis; G89.29 Other chronic pain; M54.9 Dorsalgia, unspecified; Z95.1 Presence of aortocoronary bypass graft; Z95.5 Presence of coronary angioplasty implant and graft; Z87.891 Personal history of nicotine dependence; Z77.22 Contact with and (suspected) exposure to environmental tobacco smoke (acute) (chronic); Z79.82 Long term (current) use of aspirin; Z79.891 Long term (current) use of opiate analgesic; Z79.4 Long term (current) use of insulin; Z79.899 Other long term (current) drug therapy; X50.1XXA Overexertion from prolonged static or awkward postures, initial encounter
CPT/HCPCS: 99284

== ENCOUNTER → 2021-04-09 | Outpatient (CLI) | payer MEDICARE ==
[~2021-04-09] MED LIST changes: +ACHD5005 PO; +CYCL10TA9 PO; +GADOBUTROL 10 MMOL/10 ML (GADAVIST) VIAL IV ONE; -SULF1TAB35 PO; +SULF1TAB38 PO
--- NOTE | 2021-04-09 11:34 | Diagnostic Imaging Report ---
Clinical indication: Patient nonruptured cerebral aneurysm. Patient has been having headaches. Exam: MRI of the brain performed without and with 6 cc of Gadavist IV contrast. Sequences include axial DWI, ADC map, axial gradient echo, axial T2, axial FLAIR, axial T1, axial T1 post IV contrast, coronal T1 fat-sat post IV contrast, and sagittal T1 post IV contrast. Comparison: MRI of the brain performed without and with IV contrast dated 08/29/2008. Findings: There is no evidence of acute cerebral infarct, intracranial hemorrhage, or gross mass effect. The brain parenchymal volume appears appropriate for patient's age. There are multiple focal areas of high T2 signal white matter changes involving both cerebral hemispheres, likely representing chronic small vessel ischemic disease which has progressed in interim. There is normal becker-white matter distinction. There is no significant midline shift or herniation. Stable large developmental venous anomaly in the high parasagittal posterior right frontal/parietal region. [place] vascular structures show no gross abnormality as visualized. There is no evidence of hydrocephalus. The basal cisterns are unremarkable. The skull, extracranial soft tissue, and orbits are unremarkable. The paranasal sinuses are unremarkable. Temporal bones show no significant abnormality. IMPRESSION: 1: There is no evidence of acute intracranial process. There is no abnormal IV contrast enhancement. 2: Stable large developmental venous anomaly involving the high parasagittal posterior right frontal/parietal region. 3: There is progression of age-related brain parenchymal changes with mild chronic small vessel ischemic disease. Dictated by: Dictated on workstation # [id number]
== END ==
LOC: RAD 08:53
PROVIDERS: ATTEND Family Medicine
DX: I67.1 Cerebral aneurysm, nonruptured (principal); G44.229 Chronic tension-type headache, not intractable; I67.82 Cerebral ischemia
CPT/HCPCS: 70553

== ENCOUNTER 2021-05-13 11:30 | Emergency (ER) | payer MEDICARE ==
[~2021-05-13] VITALS: Ht 157 cm; Wt 68.0 kg
[~2021-05-13 11:30] MED LIST changes: -GADOBUTROL 10 MMOL/10 ML (GADAVIST) VIAL IV ONE
--- NOTE | 2021-05-13 11:40 | ED Head Injury ---
General Stated Complaint: FALL HEAD INJ Source: patient Exam Limitations: no limitations History of Present Illness Date Seen by Provider: May 13, 2021 Time Seen by Provider: 11:39 Initial Comments To ER with reports of a fall and head injury. She was 1 rung up on a stepladder when she was coming down she miscalculated her step when she fell backwards str iking the back of her head on the ground. She believes she might have lost consciousness but is not sure. She has a headache that has worsened since EMS got there. No neck pain. No confusion. No nausea no vomiting no dizziness. She is only on aspirin. She also has some left hip pain though she was ambulatory on scene. She denies any tingling in hands or feet. Occurred: just prior to arrival Severity: moderate Location: occipital Method of Injury: direct blow, fell Loss of Consciousness: unsure Allergies and Home Medications Allergies Coded Allergies: Fish Containing Products (Verified Allergy, Unknown, 01/25/19) FROM UNCODED ALLERGIES ketoprofen (Verified Allergy, Unknown, 01/18/19) mushroom (Verified Allergy, Unknown, 01/25/19) FROM UNCODED ALLERGIES Patient Home Medication List Home Medication List Reviewed: Yes Acetaminophen (Tylenol Extra Strength) 500 Mg Tablet, 500-1,000 MG PO Q6H PRN for PAIN-MILD, (Reported) Entered as Reported by: STEVE LYONS on 12/09/17 09 Aspirin (Aspirin EC) 81 Mg Tablet.dr, 81 MG PO DAILY, (Reported) Entered as Reported by: STEVE LYONS on 05/21/15 1427 Atorvastatin Calcium (Atorvastatin Calcium) 40 Mg Tablet, 40 MG PO DAILY, (Reported) Entered as Reported by: STEVE LYONS on 12/09/17 09 Calcium Carbonate (Calcium Carbonate) 500 Mg Tablet, 500 MG PO UD PRN for I NDIGESTION, (Reported) Entered as Reported by: STEVE LYONS on 12/09/17 09 Cholecalciferol (Vitamin D3) (Vitamin D3) 1,000 Unit Tablet, 1,000 UNIT PO DAILY, (Reported) Entered as Reported by: STEVE LYONS on 12/09/17 09 Cyclobenzaprine HCl (Cyclobenzaprine HCl) 10 Mg Tablet, 10 MG PO TID Prescribed by: MARIO JACOBSEN on 12/18/20 1540 Evolocumab (Repatha Sureclick) 140 Mg/1 Ml Pen.injctr, 140 MG SQ EVERY 14 DAYS, (Reported) Entered as Reported by: STEVE LYONS on 12/09/17932 Furosemide (Lasix) 20 Mg Tablet, 20 MG PO PRN Prescribed by: FABY CHANDLER on 12/09/17 1321 Hydrocodone/Acetaminophen (Hydrocodone-Acetamin 5-325 mg) 1 Each Tablet, 1 TAB PO Q6H PRN for PAIN-MODERATE (5-7) Prescribed by: MARIO JACOBSEN on 12/18/20 1540 Insulin Aspart (Novolog) 100 Unit/1 Ml Susp, SQ AC, (Reported) Entered as Reported by: PATRICIO REAVES on 06/15/16 151 Insulin Detemir (Levemir Flextouch) 100 Unit/1 Ml Insuln.pen, 26 UNITS SQ HS, (Reported) Entered as Reported by: PATRICIO REAVES on 06/15/16 151 Lisinopril (Lisinopril) 5 Mg Tablet, 5 MG PO DAILY, (Reported) Entered as Reported by: STEVE LYONS on 12/09/17932 Metformin HCl (Metformin HCl ER) 1,000 Mg Tab.er.24, 1,000 MG PO BID WITH MEALS, (Reported) Entered as Reported by: STEVE LYONS on 12/09/17932 Metoprolol Succinate (Metoprolol Succinate) 25 Mg Tab.er.24h, 25 MG PO DAILY, (Reported) Entered as Reported by: STEVE LYONS on 12/09/17932 Nitroglycerin (Nitroglycerin) 0.4 Mg Tab.subl, 0.4 MG SL UD PRN for CHEST PAIN, (Reported) Entered as Reported by: STEVE LYONS on 12/09/17932 Ondansetron (Ondansetron Odt) 4 Mg Tab.rapdis, 4 MG PO Q6H PRN for NAUSEA/VOMITING Prescribed by: DAIN SHEPHERD on 07/25/18 0532 Oxycodone HCl/Acetaminophen (Oxycodone-Acetaminophen 5-325) 1 Each Tablet, 1-2 TAB PO Q6H PRN for PAIN-MODERATE, (Reported) Entered as Reported by: STEVE LYONS on 12/09/17932 Pantoprazole Sodium (Protonix) 40 Mg Tablet.dr, 40 MG PO DAILY Prescribed by: JESS NEWBERRY on 01/25/19 1634 Sennosides/Docusate Sodium (Senokot-S Tablet) 1 Each Tablet, 2 TAB PO BID, (Reported) Entered as Reported by: STEVE LYONS on 12/09/17932 Spironolactone (Aldactone) 25 Mg Tablet, 12.5 MG PO DAILY, (Reported) Entered as Reported by: STEVE LYONS on 12/09/17932 Tramadol HCl (Tramadol HCl) 50 Mg Tablet, 50 MG PO Q6H PRN for PAIN-MODERATE, (Reported) Entered as Reported by: STEVE LYONS on 12/09/17932 Review of Systems Review of Systems Constitutional: see HPI Eyes: No Symptoms Reported Ears, Nose, Mouth, Throat: no symptoms reported Respiratory: no symptoms reported Cardiovascular: no symptoms reported Genitourinary: no symptoms reported Musculoskeletal: no symptoms reported Skin: no symptoms reported Psychiatric/Neurological: See HPI, Headache Endocrine: No Symptoms Reported Hematologic/Lymphatic: No Symptoms Reported Past Lgqmbqk-Qfxrky-Aeltah Hx Immunizations Up To Date Tetanus Booster (TDap): Less than 5yrs PED Vaccines UTD: No Seasonal Allergies Seasonal Allergies: No Past Medical History Surgeries: Yes (lense inserted in L eye) Cardiac, CABG, Coronary Stent, Gallbladder, Oophorectomy, Orthopedic, Rectal, Tonsillectomy, 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 Respiratory: Yes (SMOKED 5 PPD ALL OF LIFE, QUIT IN 2018) Chronic Bronchitis, COPD Currently Using CPAP: No Currently Using BIPAP: No Cardiac: Yes (STENTS X 13; 3 VESSEL CABG 12/02/17 AT ; CHF; RBBB) Coronary Artery Disease, Heart Attack, High Cholesterol, Hypertension Neurological: Yes (MILD SPEECH IMPAIRMENT) Neuropathy, Stroke, TIA 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 Disorders: Yes (CERVICAL CANCER) 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, 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, Menopausal Sexually Transmitted Disease: No HIV/AIDS: No Genitourinary: No Gastrointestinal: Yes Gastroesophageal Reflux, Hemorrhoids, Ulcer Musculoskeletal: Yes Arthritis, Chronic Back Pain Endocrine: Yes Diabetes, Insulin dep HEENT: Yes (TEETH REMOVED; DIABETIC RETINOPATHY) Cancer: Yes (S/P SURGERY ONLY) Cervical Did You Recieve Any Treatments: Yes What Type of Treatment Did You: Surgical Intervention Psychosocial: Yes Anxiety Integumentary: No Blood Disorders: No Family Medical History Alcoholism Arthritis Asthma Cardiovascular disease Cataracts Colon cancer Completed stroke Coronary thrombosis Diabetes mellitus Gastroenteritis Glaucoma Headache disorder Hypertension Kidney disease Psychosocial problem Respiratory disorder Seizure disorder Severe allergy Thyroid disease Visual disorder Heart Disease, Hypertension Physical Exam Vital Signs Vital Signs - First Documented 05/13/21 11:30 Temp 36.3 Pulse 83 Resp 16 B/P (MAP) 179/85 (116) Pulse Ox 97 O2 Delivery Room Air Capillary Refill : Height, Weight, BMI Height: 5'1.00" Weight: 164lbs. 0.0oz. 74.161875ks; 29.00 BMI Method:Stated General Appearance: WD/WN, no apparent distress HEENT: PERRL/EOMI, normal ENT inspection Neck: non-tender, full range of motion Respiratory: no respiratory distress, no accessory muscle use Gastrointestinal: normal bowel sounds, non tender, soft Extremities: normal range of motion, non-tender Psychiatric: alert, oriented x 3 Crainal Nerves: normal hearing, normal speech, PERRL Skin: normal color, warm/dry Hardeep Coma Score Best Eye Response: (4) Open Spontaneously Best Verbal Response: (5) Oriented Best Motor Response: (6) Obeys Commands Hardeep Total: 15 Progress/Results/Core Measures Results/Orders My Orders Orders - LAURA ALBA APRN Ct Head/Cervical Spine Wo (05/13/21 11:37) Pelvis (05/13/21 11:37) Vital Signs/I&O 05/13/21 11:30 Temp 36.3 Pulse 83 Resp 16 B/P (MAP) 179/85 (116) Pulse Ox 97 O2 Delivery Room Air Departure Communication (Admissions) Cervical collar off at 1225. We will give her some medicine for her headache and discharged home. Impression Primary Impression: Minor head injury Additional Impressions: Scalp contusion Contusion, hip Disposition: HOME, SELF-CARE Condition: Stable Departure-Patient Inst. Decision time for Depature: 12:27 Referrals: ASHLEY BANEGAS MD (PCP/Family) Primary Care Physician Patient Instructions: Contusion (DC) Add. Discharge Instructions: 1. Return to ER for any concerns 2. Tylenol for headache. Follow-up with your doctor next week. LAURA ALBA APRN May 13, 2021 11:40
--- NOTE | 2021-05-13 12:19 | Diagnostic Imaging Report ---
PROCEDURE: CT head and CT cervical spine without contrast. TECHNIQUE: Multiple contiguous axial images were obtained through the brain and cervical spine without the use of intravenous contrast. Sagittal and coronal reformations through the cervical spine were then performed. Auto Exposure Controls were utilized during the CT exam to meet ALARA standards for radiation dose reduction. INDICATION: Fall. Hit head. Head and neck pain. COMPARISON: 05/16/2016. 04/09/2021. FINDINGS: CT head: No large acute territorial ischemia, mass, or hemorrhage. No midline shift or mass effect. Developmental venous anomaly is again seen in the right frontal lobe. Scattered decreased attenuation is seen in the periventricular and subcortical white matter. The ventricles and cortical sulci are mildly prominent. The basilar cisterns are patent and unremarkable. The calvarium is intact. The visualized paranasal sinuses are clear. CT cervical spine: No acute fracture or dislocation is seen in the cervical spine. No focal osseous lesions. Vertebral body heights are well-maintained. The craniocervical junction is well-maintained. Mild degenerative changes are seen in the cervical spine with disc osteophyte complexes and uncovertebral arthropathy. Endplate sclerotic findings are seen at the C6-C7 level. Soft tissues of the neck are unremarkable. Included lung apices are clear. IMPRESSION: 1. No hemorrhage or focal intra-axial mass. No CT evidence of large acute territorial ischemia. 2. No acute fracture or dislocation in the cervical spine. 3. Developmental venous anomaly is again seen in the right frontal lobe. 4. Mild parenchymal volume loss with scattered chronic microvascular disease. Dictated by: Dictated on workstation # [id number]
[2021-05-13] MEDS ORDERED: ACETAMINOPHEN 500 MG TAB (TYLENOL) PO ONE (12:30)
--- NOTE | 2021-05-13 13:08 | Diagnostic Imaging Report ---
HISTORY: Pelvic pain after fall COMPARISON: 04/28/2018 TECHNIQUE: Frontal view the pelvis FINDINGS: No acute fracture seen in the pelvis. Alignment is normal. There is mild degenerative change in bilateral hip joints. Multiple phleboliths are seen. IMPRESSION: 1. No acute osseous abnormality is seen on this single view of the pelvis. Dictated by: Dictated on workstation # [id number]
[2021-05-13 13:15] VITALS: BP 161/81
== END 2021-05-13 13:15 | disposition home or self-care (01) ==
LOC: EDUNIT# 11:30 → ER 11:34
DX: S70.02XA Contusion of left hip, initial encounter (principal); S00.03XA Contusion of scalp, initial encounter; S09.90XA Unspecified injury of head, initial encounter; I10 Essential (primary) hypertension; J44.9 Chronic obstructive pulmonary disease, unspecified; K21.9 Gastro-esophageal reflux disease without esophagitis; I25.2 Old myocardial infarction; E78.00 Pure hypercholesterolemia, unspecified; I25.10 Atherosclerotic heart disease of native coronary artery without angina pectoris; G89.29 Other chronic pain; M54.9 Dorsalgia, unspecified; E11.9 Type 2 diabetes mellitus without complications; Z86.73 Personal history of transient ischemic attack (TIA), and cerebral infarction without residual deficits; Z79.82 Long term (current) use of aspirin; Z79.4 Long term (current) use of insulin; Z79.891 Long term (current) use of opiate analgesic; Z79.899 Other long term (current) drug therapy; W22.8XXA Striking against or struck by other objects, initial encounter
CPT/HCPCS: 70450; 72125; 72170

== ENCOUNTER 2021-07-24 17:15 | Emergency (ER) | payer MEDICARE ==
[~2021-07-24] VITALS: Ht 154 cm; Wt 68.0 kg
[~2021-07-24 17:15] MED LIST changes: +CYCL10TA25 PO; -CYCL10TA9 PO; -LISI-729 PO; +LISI5TAB20 PO
--- NOTE | 2021-07-24 17:26 | ED General ---
General Stated Complaint: FEVER/HEADACHE Source of Information: Patient Exam Limitations: No Limitations (LAURA LABA APRN) History of Present Illness Date Seen by Provider: Jul 24, 2021 Time Seen by Provider: 17:24 Initial Comments To ER by EMS from home with reports of fever headache cough shortness of breath at about 1 PM today. She was exposed to COVID about a week ago. She has taken nothing for her fever. She is not vaccinated against COVID because she says th at her would not let her get the vaccine. Timing/Duration: 4-6 Hours Severity: Moderate Associated Systoms: Fever/Chills, Headaches (LAURA ALBA APRN) Allergies and Home Medications Allergies Coded Allergies: Fish Containing Products (Verified Allergy, Unknown, 01/25/19) FROM UNCODED ALLERGIES ketoprofen (Verified Allergy, Unknown, 01/18/19) mushroom (Verified Allergy, Unknown, 01/25/19) FROM UNCODED ALLERGIES Patient Home Medication List Home Medication List Reviewed: Yes (LAURA ALBA APRN) Acetaminophen (Tylenol Extra Strength) 500 Mg Tablet, 500-1,000 MG PO Q6H PRN for PAIN-MILD, (Reported) Entered as Reported by: STEVE LYONS on 12/09/17 0944 Aspirin (Aspirin EC) 81 Mg Tablet.dr, 81 MG PO DAILY, (Reported) Entered as Reported by: STEVE LYONS on 05/21/15 1427 Atorvastatin Calcium (Atorvastatin Calcium) 40 Mg Tablet, 40 MG PO DAILY, (Reported) Entered as Reported by: STEVE LYONS on 12/09/17 0933 Calcium Carbonate (Calcium Carbonate) 500 Mg Tablet, 500 MG PO UD PRN for INDIGESTION, (Reported) Entered as Reported by: STEVE LYNOS on 12/09/17 09 Cefuroxime Axetil (Cefuroxime) 250 Mg Tablet, 250 MG PO BID Prescribed by: LAURA ALBA on 07/24/21 191 Cholecalciferol (Vitamin D3) (Vitamin D3) 1,000 Unit Tablet, 1,000 UNIT PO DAILY, (Reported) Entered as Reported by: STEVE LYONS on 12/09/17 0933 Cyclobenzaprine HCl (Cyclobenzaprine HCl) 10 Mg Tablet, 10 MG PO TID Prescribed by: MARIO JACOBSEN on 12/18/20 1540 Evolocumab (Repatha Sureclick) 140 Mg/1 Ml Pen.injctr, 140 MG SQ EVERY 14 DAYS, (Reported) Entered as Reported by: STEVE LYONS on 12/09/17932 Furosemide (Lasix) 20 Mg Tablet, 20 MG PO PRN Prescribed by: FABY CHANDLER on 12/09/17 1321 Hydrocodone/Acetaminophen (Hydrocodone-Acetamin 5-325 mg) 1 Each Tablet, 1 TAB PO Q6H PRN for PAIN-MODERATE (5-7) Prescribed by: MARIO JACOBSEN on 12/18/20 1540 Insulin Aspart (Novolog) 100 Unit/1 Ml Susp, SQ AC, (Reported) Entered as Reported by: PATRICIO REAVES on 06/15/16 151 Insulin Detemir (Levemir Flextouch) 100 Unit/1 Ml Insuln.pen, 26 UNITS SQ HS, (Reported) Entered as Reported by: PATRICIO REAVES on 06/15/16 151 Lisinopril (Lisinopril) 5 Mg Tablet, 5 MG PO DAILY, (Reported) Entered as Reported by: STEVE LYONS on 12/09/17932 Metformin HCl (Metformin HCl ER) 1,000 Mg Tab.er.24, 1,000 MG PO BID WITH MEALS, (Reported) Entered as Reported by: STEVE LYONS on 12/09/17932 Metoprolol Succinate (Metoprolol Succinate) 25 Mg Tab.er.24h, 25 MG PO DAILY, (Reported) Entered as Reported by: STEVE LYONS on 12/09/17932 Nitroglycerin (Nitroglycerin) 0.4 Mg Tab.subl, 0.4 MG SL UD PRN for CHEST PAIN, (Reported) Entered as Reported by: STEVE LYONS on 12/09/17 09 Ondansetron (Ondansetron Odt) 4 Mg Tab.rapdis, 4 MG PO Q6H PRN for NAUSEA/VOMITING Prescribed by: DAIN SHEPHERD on 07/25/18 0532 Oxycodone HCl/Acetaminophen (Oxycodone-Acetaminophen 5-325) 1 Each Tablet, 1-2 TAB PO Q6H PRN for PAIN-MODERATE, (Reported) Entered as Reported by: STEVE LYONS on 5932 Pantoprazole Sodium (Protonix) 40 Mg Tablet.dr, 40 MG PO DAILY Prescribed by: JESS NEWBERRY on 01/25/19 1634 Sennosides/Docusate Sodium (Senokot-S Tablet) 1 Each Tablet, 2 TAB PO BID, (Reported) Entered as Reported by: STEVE LYONS on 12/09/17932 Spironolactone (Aldactone) 25 Mg Tablet, 12.5 MG PO DAILY, (Reported) Entered as Reported by: STEVE LYONS on 12/09/17932 Tramadol HCl (Tramadol HCl) 50 Mg Tablet, 50 MG PO Q6H PRN for PAIN-MODERATE, (Reported) Entered as Reported by: STEVE LOYNS on 12/09/17932 Review of Systems Review of Systems Constitutional: see HPI EENTM: see HPI Respiratory: see HPI Cardiovascular: see HPI Genitourinary: no symptoms reported Musculoskeletal: no symptoms reported Skin: no symptoms reported Psychiatric/Neurological: No Symptoms Reported Hematologic/Lymphatic: No Symptoms Reported (LAURA ALBA APRN) Past Iowloqm-Ckmdtj-Soqptg Hx Immunizations Up To Date Tetanus Booster (TDap): Less than 5yrs PED Vaccines UTD: No (LAURA ALBA APRN) Seasonal Allergies Seasonal Allergies: No (LAURA ALBA APRN) Past Medical History Surgeries: Yes (lense inserted in L eye) Cardiac, CABG, Coronary Stent, Gallbladder, Oophorectomy, Orthopedic, Rectal, Tonsillectomy, 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 Respiratory: Yes (SMOKED 5 PPD ALL OF LIFE, QUIT IN 2018) Chronic Bronchitis, COPD Currently Using CPAP: No Currently Using BIPAP: No Cardiac: Yes (STENTS X 13; 3 VESSEL CABG 12/02/17 AT ; CHF; RBBB) Coronary Artery Disease, Heart Attack, High Cholesterol, Hypertension Neurological: Yes (MILD SPEECH IMPAIRMENT) Neuropathy, Stroke, TIA 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 Disorders: Yes (CERVICAL CANCER) 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, 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, Menopausal Sexually Transmitted Disease: No HIV/AIDS: No Genitourinary: No Gastrointestinal: Yes Gastroesophageal Reflux, Hemorrhoids, Ulcer Musculoskeletal: Yes Arthritis, Chronic Back Pain Endocrine: Yes Diabetes, Insulin dep HEENT: Yes (TEETH REMOVED; DIABETIC RETINOPATHY) Cancer: Yes (S/P SURGERY ONLY) Cervical Did You Recieve Any Treatments: Yes What Type of Treatment Did You: Surgical Intervention Psychosocial: Yes Anxiety Integumentary: No Blood Disorders: No (LAURA ALBA APRN) Family Medical History Alcoholism Arthritis Asthma Cardiovascular disease Cataracts Colon cancer Completed stroke Coronary thrombosis Diabetes mellitus Gastroenteritis Glaucoma Headache disorder Hypertension Kidney disease Psychosocial problem Respiratory disorder Seizure disorder Severe allergy Thyroid disease Visual disorder Heart Disease, Hypertension (LAURA ALBA APRN) Physical Exam Vital Signs Vital Signs - First Documented 07/24/21 18:11 Temp 39.3 Pulse 98 Resp 18 B/P (MAP) 171/81 (111) Pulse Ox 95 (AMNA VELA DO) Vital Signs Capillary Refill : (LAURA ALBA APRN) Height, Weight, BMI Height: 5'1.00" Weight: 164lbs. 0.0oz. 74.097054ql; 27.00 BMI Method:Stated General Appearance: No Apparent Distress, WD/WN, Other (No distress, temperature about 102 on arrival, oxygen saturation 95% on room air.) Eyes: Bilateral Eye Normal Inspection, Bilateral Eye PERRL, Bilateral Eye EOMI HEENT: PERRL/EOMI, TMs Normal Neck: Full Range of Motion, Normal Inspection Respiratory: No Accessory Muscle Use, No Respiratory Distress Cardiovascular: Regular Rate, Rhythm, Normal Peripheral Pulses Gastrointestinal: Normal Bowel Sounds, Non Tender, Soft Extremity: Normal Capillary Refill, Normal Inspection Neurologic/Psychiatric: Alert, Oriented x3 Skin: Normal Color, Warm/Dry (LAURA ALBA APRN) Focused Exam Lactate Level 07/24/21 17:29: Lactic Acid Level 2.37*H (AMNA VELA DO) Lactic Acid Level Laboratory Tests Test 07/24/21 17:29 Lactic Acid Level 2.37 MMOL/L (0.50-2.00) *H (AMNA VELA DO) Progress/Results/Core Measures Suspected Sepsis SIRS Temperature: Pulse: Respiratory Rate: Laboratory Tests 07/24/21 17:29: White Blood Count 5.2 Blood Pressure / Mean: 07/24/21 17:29: Lactic Acid Level 2.37*H Laboratory Tests 07/24/21 17:29: Creatinine 0.79, INR Comment 1.0, Platelet Count 159, Total Bilirubin 0.5 (LAURA ALBA APRN) Results/Orders Lab Results Laboratory Tests Test 07/24/21 17:22 07/24/21 17:29 07/24/21 17:44 Range/Units Influenza Type A (RT-PCR) Not Detected Not Detecte Influenza Type B (RT-PCR) Not Detected Not Detecte SARS-CoV-2 RNA (RT-PCR) Detected H Not Detecte White Blood Count 5.2 4.3-11.0 10^3/uL Red Blood Count 4.62 3.80-5.11 10^6/uL Hemoglobin 13.5 11.5-16.0 g/dL Hematocrit 40 35-52 % Mean Corpuscular Volume 87 80-99 fL Mean Corpuscular Hemoglobin 29 25-34 pg Mean Corpuscular Hemoglobin Concent 34 32-36 g/dL Red Cell Distribution Width 12.4 10.0-14.5 % Platelet Count 159 130-400 10^3/uL Mean Platelet Volume 12.1 9.0-12.2 fL Immature Granulocyte % (Auto) 0 % Neutrophils (%) (Auto) 73 42-75 % Lymphocytes (%) (Auto) 17 12-44 % Monocytes (%) (Auto) 9 0-12 % Eosinophils (%) (Auto) 1 0-10 % Basophils (%) (Auto) 0 0-10 % Neutrophils # (Auto) 3.9 1.8-7.8 10^3/uL Lymphocytes # (Auto) 0.9 L 1.0-4.0 10^3/uL Monocytes # (Auto) 0.5 0.0-1.0 10^3/uL Eosinophils # (Auto) 0.0 0.0-0.3 10^3/uL Basophils # (Auto) 0.0 0.0-0.1 10^3/uL Immature Granulocyte # (Auto) 0.0 0.0-0.1 10^3/uL Prothrombin Time 13.9 12.2-14.7 SEC INR Comment 1.0 0.8-1.4 Activated Partial Thromboplast Time 27 24-35 SEC Sodium Level 135 135-145 MMOL/L Potassium Level 3.7 3.6-5.0 MMOL/L Chloride Level 102 98-107 MMOL/L Carbon Dioxide Level 18 L 21-32 MMOL/L Anion Gap 15 H 5-14 MMOL/L Blood Urea Nitrogen 19 H 7-18 MG/DL Creatinine 0.79 0.60-1.30 MG/DL Estimat Glomerular Filtration Rate 73 BUN/Creatinine Ratio 24 Glucose Level 374 H 70-105 MG/DL Lactic Acid Level 2.37 *H 0.50-2.00 MMOL/L Calcium Level 9.1 8.5-10.1 MG/DL Corrected Calcium 9.3 8.5-10.1 MG/DL Total Bilirubin 0.5 0.1-1.0 MG/DL Aspartate Amino Transf (AST/SGOT) 13 5-34 U/L Alanine Aminotransferase (ALT/SGPT) 11 0-55 U/L Alkaline Phosphatase 72 40-136 U/L Total Protein 7.5 6.4-8.2 GM/DL Albumin 3.8 3.2-4.5 GM/DL Urine Color YELLOW Urine Clarity CLEAR Urine pH 6.0 5-9 Urine Specific Flora 1.020 1.016-1.022 Urine Protein NEGATIVE NEGATIVE Urine Glucose (UA) 3+ H NEGATIVE Urine Ketones NEGATIVE NEGATIVE Urine Nitrite POSITIVE H NEGATIVE Urine Bilirubin NEGATIVE NEGATIVE Urine Urobilinogen 0.2 < = 1.0 MG/DL Urine Leukocyte Esterase NEGATIVE NEGATIVE Urine RBC (Auto) 1+ H NEGATIVE Urine RBC 5-10 H /HPF Urine WBC 5-10 H /HPF Urine Squamous Epithelial Cells 0-2 /HPF Urine Crystals NONE /LPF Urine Bacteria LARGE H /HPF Urine Casts NONE /LPF Urine Mucus NEGATIVE /LPF Urine Culture Indicated CULTURE PENDING (AMNA VELA DO) Medications Given in ED Current Medications Medications Dose Ordered Sig/Kelli Route Start Time Stop Time Status Last Admin Dose Admin Acetaminophen 1,000 mg ONCE ONCE PO 07/24/21 17:30 07/24/21 17:31 DC 07/24/21 17:35 1,000 MG Ceftriaxone Sodium/Dextrose 50 ml @ 100 mls/hr ONCE ONCE IV 07/24/21 19:00 07/24/21 19:29 DC 07/24/21 19:30 100 MLS/HR Ibuprofen 800 mg ONCE ONCE PO 07/24/21 17:30 07/24/21 17:31 DC 07/24/21 17:35 800 MG (ACE VELAA K DO) Vital Signs/I&O 07/24/21 18:11 Temp 39.3 Pulse 98 Resp 18 B/P (MAP) 171/81 (111) Pulse Ox 95 (DANEAMNA K DO) Vital Signs/I&O Capillary Refill : (LAURA ALBA APRN) Departure Communication (Admissions) NAME: RICCARDO [facility]VARRIA [facility] REC#: [id number] PT STATUS: REG ER : 1955 PHYSICIAN: LAURA ALAB APRN ADMIT DATE: 07/24/21/ER Draft Date of Exam:07/24/21 CHEST 1 VIEW, AP/PA ONLY INDICATION: Cough COMPARISON: 04/22/2020 FINDINGS: Single frontal view of the chest demonstrates normal heart size and pulmonary vascularity. The lungs show low inspiratory volumes, but are otherwise clear. No large pleural effusion or pneumothorax is seen. The visualized osseous structures show no acute abnormalities. Sternotomy wires are noted IMPRESSION: 1. No acute cardiopulmonary process. Dictated on workstation # [id number] Dict: 07/24/[id number] Trans: 07/24/211999 [id number] Interpreted by: NALDO ROGERS MD Electronically signed by: (LAURA ALBA APRN) Impression Primary Impression: COVID-19 Additional Impression: Urinary tract infection Disposition: HOME, SELF-CARE Condition: Stable Departure-Patient Inst. Decision time for Depature: 19:18 (LAURA ALBA APRN) Referrals: ASHLEY BANEGAS MD (PCP/Family) Primary Care Physician Patient Instructions: COVID-19 ED Add. Discharge Instructions: 1. Tylenol and ibuprofen for pain or fever control. Antibiotic as directed for the bladder infection. Return to ER for any worsening symptoms. Follow-up with your doctor next week. Scripts Cefuroxime Axetil (Cefuroxime) 250 Mg Tablet 250 MG PO BID, #10 TAB Prov: LAURA ALBA APRN 07/24/21 ATTENDING PHYSICIAN NOTE: I WAS PHYSICALLY PRESENT ER PHYSICIAN WHEN THIS PATIENT WAS IN ER, BUT I WAS NOT INVOLVED IN ANY DECISION MAKING OR ANY CARE OF THIS PATIENT. (AMNA VELA DO) LAURA ALBA APRN Jul 24, 2021 17:26 AMNA VELA DO Jul 25, 2021 03:17
[2021-07-24] MEDS ORDERED: IBUPROFEN 800 MG (MOTRIN) TAB PO ONE (17:30)
[2021-07-24] MEDS ORDERED: ACETAMINOPHEN 500 MG TAB (TYLENOL) PO ONE (17:30)
[2021-07-24 17:45] LABS: BASOPHILS % (AUTO) 0 % (0-10); EOSINOPHILS % (AUTO) 1 % (0-10); HEMATOCRIT 40 % (35-52); HEMOGLOBIN 13.5 g/dL (11.5-16.0); LYMPHOCYTES # (AUTO) 0.9 10^3/uL (1.0-4.0); LYMPHOCYTES % (AUTO) 17 % (12-44); MEAN CORPUSCULAR HEMOGLOBIN 29 pg (25-34); MEAN CORPUSCULAR HGB CONC 34 g/dL (32-36); MEAN CORPUSCULAR VOLUME 87 fL (80-99); MEAN PLATELET VOLUME 12.1 fL (9.0-12.2); MONOCYTES # (AUTO) 0.5 10^3/uL (0.0-1.0); MONOCYTES % (AUTO) 9 % (0-12); NEUTROPHILS # (AUTO) 3.9 10^3/uL (1.8-7.8); NEUTROPHILS % (AUTO) 73 % (42-75); PLATELET COUNT 159 10^3/uL (130-400); WHITE BLOOD COUNT 5.2 10^3/uL (4.3-11.0)
[2021-07-24 17:56] LABS: ALBUMIN 3.8 GM/DL (3.2-4.5)
[2021-07-24 17:57] LABS: POTASSIUM 3.7 MMOL/L (3.6-5.0); PROTHROMBIN TIME PATIENT 13.9 SEC (12.2-14.7)
[2021-07-24 17:58] LABS: CALCIUM 9.1 MG/DL (8.5-10.1)
[2021-07-24 17:59] LABS: TOTAL PROTEIN 7.5 GM/DL (6.4-8.2)
[2021-07-24 18:01] LABS: BILIRUBIN,TOTAL 0.5 MG/DL (0.1-1.0)
[2021-07-24 18:03] LABS: CREATININE SERUM 0.79 MG/DL (0.60-1.30)
[2021-07-24 18:11] VITALS: BP 171/81
[2021-07-24 18:15] LABS: BILIRUBIN,URINE NEGATIVE (NEGATIVE); CLARITY,URINE CLEAR; COLOR,URINE YELLOW; GLUCOSE, URINE (UA) 3+ (NEGATIVE); KETONES,URINE NEGATIVE (NEGATIVE); LEUKOCYTE ESTERASE ,URINE NEGATIVE (NEGATIVE); NITRITE,URINE POSITIVE (NEGATIVE); PROTEIN,URINE NEGATIVE (NEGATIVE)
[2021-07-24] MEDS ORDERED: LACTATED RINGERS 1,000 ML IV SCH (18:15)
[2021-07-24] MEDS ORDERED: inSUlin (REGULAR) HUMAN 1 UNIT/0.01 ML (CHARGE PER UNIT) SC SCH (18:15)
[2021-07-24 18:32] LABS: BACTERIA,URINE LARGE /HPF; SQUAMOUS EPITHELIAL CELL,UR 0-2 /HPF
[2021-07-24] MEDS ORDERED: cefTRIAXone 1 GM PRE-MIX 50 ML IV ONE (19:00)
[2021-07-24] MEDS ORDERED: CEFU250T80 PO (19:19)
--- NOTE | 2021-07-24 20:01 | Diagnostic Imaging Report ---
INDICATION: Cough COMPARISON: 04/22/2020 FINDINGS: Single frontal view of the chest demonstrates normal heart size and pulmonary vascularity. The lungs show low inspiratory volumes, but are otherwise clear. No large pleural effusion or pneumothorax is seen. The visualized osseous structures show no acute abnormalities. Sternotomy wires are noted IMPRESSION: 1. No acute cardiopulmonary process. Dictated by: Dictated on workstation # [id number]
== END 2021-07-24 20:48 | disposition home or self-care (01) ==
LOC: EDUNIT# 17:17 → ER 17:18
DX: U07.1 COVID-19 (principal); N39.0 Urinary tract infection, site not specified; J44.9 Chronic obstructive pulmonary disease, unspecified; I25.2 Old myocardial infarction; I10 Essential (primary) hypertension; K21.9 Gastro-esophageal reflux disease without esophagitis; E11.9 Type 2 diabetes mellitus without complications; I25.10 Atherosclerotic heart disease of native coronary artery without angina pectoris; G89.29 Other chronic pain; M54.9 Dorsalgia, unspecified; E78.00 Pure hypercholesterolemia, unspecified; Z86.73 Personal history of transient ischemic attack (TIA), and cerebral infarction without residual deficits; Z79.4 Long term (current) use of insulin; Z79.82 Long term (current) use of aspirin; Z79.891 Long term (current) use of opiate analgesic; Z79.899 Other long term (current) drug therapy
CPT/HCPCS: 36415; 71045; 80053; 81000; 83605; 85025; 85610; 85730; 87040; 87077; 87088; 87186; 87636

== ENCOUNTER 2021-08-19 11:10 | Emergency (ER) | payer MEDICARE ==
[~2021-08-19] VITALS: Ht 157 cm; Wt 68.0 kg
[~2021-08-19 11:10] MED LIST changes: +CEFU250T80 PO
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
[2021-08-19 12:33] LABS: BASOPHILS % (AUTO) 0 % (0-10); EOSINOPHILS % (AUTO) 1 % (0-10); HEMATOCRIT 43 % (35-52); HEMOGLOBIN 13.8 g/dL (11.5-16.0); LYMPHOCYTES # (AUTO) 2.2 10^3/uL (1.0-4.0); LYMPHOCYTES % (AUTO) 32 % (12-44); MEAN CORPUSCULAR HEMOGLOBIN 29 pg (25-34); MEAN CORPUSCULAR HGB CONC 33 g/dL (32-36); MEAN CORPUSCULAR VOLUME 90 fL (80-99); MEAN PLATELET VOLUME 12.1 fL (9.0-12.2); MONOCYTES # (AUTO) 0.4 10^3/uL (0.0-1.0); MONOCYTES % (AUTO) 6 % (0-12); NEUTROPHILS # (AUTO) 4.3 10^3/uL (1.8-7.8); NEUTROPHILS % (AUTO) 61 % (42-75); PLATELET COUNT 179 10^3/uL (130-400)
[2021-08-19 12:47] LABS: CHLORIDE 104 MMOL/L (98-107)
[2021-08-19 12:48] LABS: ALBUMIN 3.8 GM/DL (3.2-4.5); POTASSIUM 4.2 MMOL/L (3.6-5.0); SODIUM 138 MMOL/L (135-145)
[2021-08-19 12:49] LABS: CALCIUM 9.4 MG/DL (8.5-10.1)
[2021-08-19 12:50] LABS: GLUCOSE 355 MG/DL (70-105); TOTAL PROTEIN 7.2 GM/DL (6.4-8.2)
[2021-08-19 12:51] LABS: CARBON DIOXIDE 23 MMOL/L (21-32)
[2021-08-19 12:52] LABS: BILIRUBIN,TOTAL 0.5 MG/DL (0.1-1.0)
[2021-08-19 12:54] LABS: ALKALINE PHOSPHATASE 68 U/L (40-136); CREATININE SERUM 0.87 MG/DL (0.60-1.30); GFR ESTIMATED 73
[2021-08-19 12:54] LABS: BILIRUBIN,URINE NEGATIVE (NEGATIVE); CLARITY,URINE CLEAR; COLOR,URINE YELLOW; GLUCOSE, URINE (UA) 3+ (NEGATIVE); KETONES,URINE NEGATIVE (NEGATIVE); LEUKOCYTE ESTERASE ,URINE NEGATIVE (NEGATIVE); NITRITE,URINE NEGATIVE (NEGATIVE); PROTEIN,URINE NEGATIVE (NEGATIVE)
[2021-08-19 12:55] LABS: BUN/CREATININE RATIO 23
[2021-08-19 12:57] LABS: HCG,QUALITATIVE URINE NEGATIVE (NEGATIVE)
[2021-08-19 12:57] LABS: ALANINE AMINOTRANSFERASE 11 U/L (0-55); SALICYLATE < 5.0 MG/DL (5.0-20.0)
[2021-08-19 13:01] LABS: BACTERIA,URINE NEGATIVE /HPF; RBC,URINE 0-2 /HPF
[2021-08-19 13:04] LABS: AMPHETAMINE SCREEN, URINE NEGATIVE (NEGATIVE); BARBITURATE SCREEN URINE NEGATIVE (NEGATIVE); BENZODIAZEPINES SCREEN URINE NEGATIVE (NEGATIVE); CANNABINOID SCREEN, URINE POSITIVE (NEGATIVE); COCAINE SCREEN URINE NEGATIVE (NEGATIVE); METHADONE STAT NEGATIVE (NEGATIVE); METHAMPHETAMINE SCREEN URINE S NEGATIVE (NEGATIVE); OPIATE SCREEN URINE NEGATIVE (NEGATIVE); OXYCODONE STAT NEGATIVE (NEGATIVE); PROPOXYPHENE STAT NEGATIVE (NEGATIVE); TRICYCLIC ANTIDEPRESSANTS SCRE NEGATIVE (NEGATIVE)
[2021-08-19 13:05] LABS: ACETAMINOPHEN < 10 UG/ML (10-30)
[2021-08-19] MEDS ORDERED: inSUlin ASPART (NovoLOG) 1 UNIT/0.01 ML (CHARGE PER UNIT) ONE (15:01)
[2021-08-19] MEDS ORDERED: CITA10TA12 PO (15:08)
[2021-08-19 15:19] VITALS: BP 145/72
[2021-08-19] MEDS ORDERED: inSUlin ASPART (NovoLOG) 1 UNIT/0.01 ML (CHARGE PER UNIT) SC ONE (17:00)
== END 2021-08-19 15:19 | disposition home or self-care (01) ==
LOC: EDUNIT# 11:10 → ER 11:12
DX: R45.850 Homicidal ideations (principal); F32.A Depression, unspecified; F41.9 Anxiety disorder, unspecified; I11.0 Hypertensive heart disease with heart failure; I50.9 Heart failure, unspecified; E11.40 Type 2 diabetes mellitus with diabetic neuropathy, unspecified; J44.9 Chronic obstructive pulmonary disease, unspecified; I25.2 Old myocardial infarction; I25.10 Atherosclerotic heart disease of native coronary artery without angina pectoris; E78.00 Pure hypercholesterolemia, unspecified; G89.29 Other chronic pain; M54.9 Dorsalgia, unspecified; K21.9 Gastro-esophageal reflux disease without esophagitis; Z95.5 Presence of coronary angioplasty implant and graft; Z95.1 Presence of aortocoronary bypass graft; Z79.4 Long term (current) use of insulin; Z79.84 Long term (current) use of oral hypoglycemic drugs; Z79.891 Long term (current) use of opiate analgesic; Z79.82 Long term (current) use of aspirin; Z79.899 Other long term (current) drug therapy; Z32.02 Encounter for pregnancy test, result negative
CPT/HCPCS: 80053; 80306; 81000; 84703; 85025; G0480 ×3; 36415; 80320; 80329; 93005

== ENCOUNTER 2021-09-06 21:03 | Emergency (ER) | payer MEDICARE ==
[~2021-09-06] VITALS: Ht 157.4 cm; Wt 68.9 kg
[~2021-09-06 21:03] MED LIST changes: +CITA10TA12 PO
--- NOTE | 2021-09-06 21:14 | ED Fall/Injury ---
General Chief Complaint: Trauma-Non Activation Stated Complaint: FALL Source: patient, EMS Exam Limitations: no limitations History of Present Illness Date Seen by Provider: Sep 06, 2021 Time Seen by Provider: 21:12 Initial Comments To ER by EMS with reports of a fall earlier this evening. She injured the left ankle and now has pain there which she rates at 20 out of 10. She struck the back of her head but did not lose consciousness. She denies neck pain. Occurred: just prior to arrival Severity: moderate Injuries/Pain Location: head, lower extremity Context: slipped Loss of Consciousness: no loss of consciousness Associated Symptoms (Fall): No Neck Pain Allergies and Home Medications Allergies Coded Allergies: Fish Containing Products (Verified Allergy, Unknown, 01/25/19) FROM UNCODED ALLERGIES ketoprofen (Verified Allergy, Unknown, 01/18/19) mushroom (Verified Allergy, Unknown, 01/25/19) FROM UNCODED ALLERGIES Patient Home Medication List Home Medication List Reviewed: Yes Acetaminophen (Tylenol Extra Strength) 500 Mg Tablet, 500-1,000 MG PO Q6H PRN for PAIN-MILD, (Reported) Entered as Reported by: STEVE LYONS on 12/09/17 09 Aspirin (Aspirin EC) 81 Mg Tablet.dr, 81 MG PO DAILY, (Reported) Entered as Reported by: STEVE LYONS on 05/21/15 1427 Atorvastatin Calcium (Atorvastatin Calcium) 40 Mg Tablet, 40 MG PO DAILY, (Reported) Entered as Reported by: STEVE LYONS on 12/09/17 0933 Calcium Carbonate (Calcium Carbonate) 500 Mg Tablet, 500 MG PO UD PRN for INDIGESTION, (Reported) Entered as Reported by: STEVE LYONS on 12/09/17 09 Cefuroxime Axetil (Cefuroxime) 250 Mg Tablet, 250 MG PO BID Prescribed by: LAURA ALBA on 07/24/21 191 Cholecalciferol (Vitamin D3) (Vitamin D3) 1,000 Unit Tablet, 1,000 UNIT PO DAILY, (Reported) Entered as Reported by: STEVE LYONS on 12/09/17 09 Citalopram Hydrobromide (Celexa) 10 Mg Tablet, 10 MG PO DAILY Prescribed by: NILAY ZARAGOZA on 08/19/21 1508 Cyclobenzaprine HCl (Cyclobenzaprine HCl) 10 Mg Tablet, 10 MG PO TID Prescribed by: MARIO JACOBSEN on 12/18/20 1540 Evolocumab (Repatha Sureclick) 140 Mg/1 Ml Pen.injctr, 140 MG SQ EVERY 14 DAYS, (Reported) Entered as Reported by: STEVE LYONS on 12/09/17932 Furosemide (Lasix) 20 Mg Tablet, 20 MG PO PRN Prescribed by: FABY CHANDLER on 12/09/17 1321 Hydrocodone/Acetaminophen (Hydrocodone-Acetamin 5-325 mg) 1 Each Tablet, 1 TAB PO Q6H PRN for PAIN-MODERATE (5-7) Prescribed by: MARIO JACOBSEN on 12/18/20 1540 Insulin Aspart (Novolog) 100 Unit/1 Ml Susp, SQ AC, (Reported) Entered as Reported by: PATRICIO REAVES on 06/15/16 151 Insulin Detemir (Levemir Flextouch) 100 Unit/1 Ml Insuln.pen, 26 UNITS SQ HS, (Reported) Entered as Reported by: PATRICIO REAVES on 06/15/161512 Lisinopril (Lisinopril) 5 Mg Tablet, 5 MG PO DAILY, (Reported) Entered as Reported by: STEVE LYONS on 12/09/17932 Metformin HCl (Metformin HCl ER) 1,000 Mg Tab.er.24, 1,000 MG PO BID WITH MEALS, (Reported) Entered as Reported by: STEVE LYONS on 12/09/17932 Metoprolol Succinate (Metoprolol Succinate) 25 Mg Tab.er.24h, 25 MG PO DAILY, (Reported) Entered as Reported by: STEVE LYONS on 12/09/17932 Nitroglycerin (Nitroglycerin) 0.4 Mg Tab.subl, 0.4 MG SL UD PRN for CHEST PAIN, (Reported) Entered as Reported by: STEVE LYONS on 12/09/17932 Ondansetron (Ondansetron Odt) 4 Mg Tab.rapdis, 4 MG PO Q6H PRN for NAUSEA/VOMITING Prescribed by: DAIN SHEPHERD on 07/25/18 0532 Oxycodone HCl/Acetaminophen (Oxycodone-Acetaminophen 5-325) 1 Each Tablet, 1-2 TAB PO Q6H PRN for PAIN-MODERATE, (Reported) Entered as Reported by: STEVE LYONS on 12/09/17932 Pantoprazole Sodium (Protonix) 40 Mg Tablet.dr, 40 MG PO DAILY Prescribed by: JESS NEWBERRY on 01/25/19 1634 Sennosides/Docusate Sodium (Senokot-S Tablet) 1 Each Tablet, 2 TAB PO BID, (Reported) Entered as Reported by: STEVE LYONS on 12/09/17932 Spironolactone (Aldactone) 25 Mg Tablet, 12.5 MG PO DAILY, (Reported) Entered as Reported by: STEVE LYONS on 12/09/17932 Tramadol HCl (Tramadol HCl) 50 Mg Tablet, 50 MG PO Q6H PRN for PAIN-MODERATE, (Reported) Entered as Reported by: STEVE LYONS on 12/09/17932 Review of Systems Review of Systems Constitutional: see HPI Eyes: No Symptoms Reported Ears, Nose, Mouth, Throat: no symptoms reported Respiratory: no symptoms reported Cardiovascular: no symptoms reported Genitourinary: no symptoms reported Musculoskeletal: see HPI Skin: no symptoms reported Psychiatric/Neurological: Headache Past Fhppqxi-Oikbsd-Wwismx Hx Immunizations Up To Date Tetanus Booster (TDap): Less than 5yrs PED Vaccines UTD: No Seasonal Allergies Seasonal Allergies: No Past Medical History Surgery/Hospitalization HX: CABG Surgeries: Yes (lense inserted in L eye) Cardiac, CABG, Coronary Stent, Gallbladder, Oophorectomy, Orthopedic, Rectal, Tonsillectomy, 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 Respiratory: Yes (SMOKED 5 PPD ALL OF LIFE, QUIT IN 2018) Chronic Bronchitis, COPD Currently Using CPAP: No Currently Using BIPAP: No Cardiac: Yes (STENTS X 13; 3 VESSEL CABG 12/02/17 AT ; CHF; RBBB) Coronary Artery Disease, Heart Attack, High Cholesterol, Hypertension Neurological: Yes (MILD SPEECH IMPAIRMENT) Neuropathy, Stroke, TIA 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 Disorders: Yes (CERVICAL CANCER) 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, 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, 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 Sexually Transmitted Disease: No HIV/AIDS: No Genitourinary: No Gastrointestinal: Yes Gastroesophageal Reflux, Hemorrhoids, Ulcer Musculoskeletal: Yes Arthritis, Chronic Back Pain Endocrine: Yes Diabetes, Insulin dep HEENT: Yes (TEETH REMOVED; DIABETIC RETINOPATHY) Cancer: Yes (S/P SURGERY ONLY) Cervical Did You Recieve Any Treatments: Yes What Type of Treatment Did You: Surgical Intervention Psychosocial: Yes Anxiety Integumentary: No Blood Disorders: No Family Medical History Alcoholism Arthritis Asthma Cardiovascular disease Cataracts Colon cancer Completed stroke Coronary thrombosis Diabetes mellitus Gastroenteritis Glaucoma Headache disorder Hypertension Kidney disease Psychosocial problem Respiratory disorder Seizure disorder Severe allergy Thyroid disease Visual disorder Heart Disease, Hypertension Physical Exam Vital Signs Vital Signs - First Documented 09/06/21 21:05 Temp 35.9 Pulse 81 Resp 22 B/P (MAP) 144/75 (98) Pulse Ox 98 O2 Delivery Room Air Capillary Refill : Height, Weight, BMI Height: 5'1.00" Weight: 164lbs. 0.0oz. 74.302083pz; 27.00 BMI Method:Stated General Appearance: WD/WN, no apparent distress HEENT: PERRL/EOMI, normal ENT inspection, other (No scalp laceration or open wound.) Neck: non-tender, full range of motion Respiratory: no respiratory distress, no accessory muscle use Gastrointestinal: normal bowel sounds, non tender Extremities: normal capillary refill, other (Strong dorsalis pedis pulse on the left normal sensation at the toes but she does have some edema and tenderness to palpation over the anterior and lateral aspect of the ankle.) Neurologic/Psychiatric: alert, normal mood/affect, oriented x 3 Skin: normal color, warm/dry Hardeep Coma Score Best Eye Response: (4) Open Spontaneously Best Verbal Response: (5) Oriented Best Motor Response: (6) Obeys Commands Hardeep Total: 15 Progress/Results/Core Measures Results/Orders My Orders Orders - LAURA ALBA APRN Ct Head/Cervical Spine Wo (09/06/21 21:09) Ankle, Left, 3 Views (09/06/21 21:09) Foot, Left, 3 Views (09/06/21 21:09) Hydrocodone/Apap 5/325 Tablet (Lortab 5 (09/06/21 21:15) Rx-Hydrocodone/Apap 5-325 Mg (Rx-Vicodin (09/06/21 22:00) Medications Given in ED Current Medications Medications Dose Ordered Sig/Kelli Route Start Time Stop Time Status Last Admin Dose Admin Acetaminophen/ Hydrocodone Bitart 1 ea ONCE ONCE PO 09/06/21 21:15 09/06/21 21:16 DC 09/06/21 21:41 1 EA Vital Signs/I&O 09/06/21 09/06/21 21:05 21:05 Temp 35.9 35.9 Pulse 81 81 Resp 22 22 B/P (MAP) 144/75 (98) 144/75 (98) Pulse Ox 98 98 O2 Delivery Room Air Departure Communication (Admissions) Patient was given crutches. She will be given a prescription for hydrocodone and referral to orthopedics. She was splinted in a stirrup splint using 3 inch Ortho-Glass NAME: RICCARDO ECHEVARRIA MED REC#: [id number] PT STATUS: REG ER : 1955 PHYSICIAN: LAURA ALBA APRN ADMIT DATE: 09/06/21/ER Draft Date of Exam:09/06/21 FOOT, LEFT, 3 VIEWS EXAM: Foot, left, 3 views. INDICATION: Left foot pain. COMPARISON: 11/23/2015 left foot radiographs. Left ankle radiographs also performed today. FINDINGS: No fracture or malalignment in the left foot. Distal left fibular metaphysis fracture is better demonstrated on the dedicated ankle views. Achilles and plantar calcaneal heel spurs. No radiopaque foreign bodies. IMPRESSION: 1. No acute radiographic findings in the left foot. 2. Distal left fibular metaphysis fracture. Dictated on workstation # [id number] Dict: 09/06/212207 Trans: 09/06/212209 [facility] [id number] Interpreted by: RENNY TARIQ MD Electronically signed by: NAME: RICCARDO ECHEVARRIA MED REC#: [id number] PT STATUS: REG ER : 1955 PHYSICIAN: LAURA ALBA APRN ADMIT DATE: 09/06/21/ER Draft Date of Exam:09/06/21 ANKLE, LEFT, 3 VIEWS EXAM: Ankle, left, 3 views . INDICATION: Left ankle pain. COMPARISON: None. FINDINGS: Mildly displaced left distal fibular metaphysis fracture at the level of the tibial plafond. No other fracture is identified. Soft tissue swelling about the lateral malleolus. Calcaneal achilles and plantar heel spurs. IMPRESSION: Mildly displaced fracture of the distal left fibular metaphysis at the level of the tibial plafond. Dictated on workstation # [id number] Dict: 09/06/212206 Trans: 09/06/212208 [facility] [id number] Interpreted by: RENNY TARIQ MD Electronically signed by: Impression Primary Impression: Ankle fracture Disposition: HOME, SELF-CARE Condition: Stable Departure-Patient Inst. Decision time for Depature: 21:42 Referrals: ASHLEY BANEGAS MD (PCP/Family) Primary Care Physician KAUR SANTANA MD, TERRY D MD ZAFUTA, MICHAEL P MD Patient Instructions: Ankle Fracture Add. Discharge Instructions: 1. Keep the splint on at all times until you follow-up with orthopedics. You should put a trash bag over it to keep it dry while you shower. Use crutches when walking to limit weightbearing on the foot. Follow-up with one of the orthopedic surgeons by calling the Thursday to make an appointment to be seen later next week. Scripts Hydrocodone/Acetaminophen (Hydrocodone-Acetamin 5-325 mg) 1 Each Tablet 1 TAB PO Q4H PRN for PAIN-MODERATE (5-7), #10 TAB Prov: LAURA ALBA APRN 09/06/21 LAURA ALBA APRN Sep 06, 2021 21:14
[2021-09-06] MEDS ORDERED: HYDROcodone/APAP 5 MG/325 MG (LORTAB) TAB PO ONE (21:15)
--- NOTE | 2021-09-06 21:59 | Diagnostic Imaging Report ---
PROCEDURE: CT head and CT cervical spine without contrast. TECHNIQUE: Multiple contiguous axial images were obtained through the brain and cervical spine without the use of intravenous contrast. Sagittal and coronal reformations through the cervical spine were then performed. Auto Exposure Controls were utilized during the CT exam to meet ALARA standards for radiation dose reduction. INDICATION: Fall. Head and neck pain. COMPARISON: 05/13/2021. FINDINGS: CT HEAD: Moderate generalized parenchymal volume loss. Stable developmental venous anomaly in the posterior right frontal lobe. No intracranial hemorrhage, mass effect, hydrocephalus or extra-axial fluid collection. No CT evidence of a territorial infarction. No acute osseous findings. Mild mucosal thickening in the ethmoid sinuses. The mastoids are clear. CT CERVICAL SPINE: Normal alignment. Vertebral body heights are preserved. No fracture. Moderate degenerative endplate changes greatest at C6-C7. Moderate atherosclerotic calcifications in the carotid bifurcations. Lung apices are clear. IMPRESSION: No acute intracranial or cervical spine CT findings. Dictated by: Dictated on workstation # [id number]
--- NOTE | 2021-09-06 22:09 | Diagnostic Imaging Report ---
EXAM: Ankle, left, 3 views . INDICATION: Left ankle pain. COMPARISON: None. FINDINGS: Mildly displaced left distal fibular metaphysis fracture at the level of the tibial plafond. No other fracture is identified. Soft tissue swelling about the lateral malleolus. Calcaneal achilles and plantar heel spurs. IMPRESSION: Mildly displaced fracture of the distal left fibular metaphysis at the level of the tibial plafond. Dictated by: Dictated on workstation # [id number]
--- NOTE | 2021-09-06 22:10 | Diagnostic Imaging Report ---
EXAM: Foot, left, 3 views. INDICATION: Left foot pain. COMPARISON: 11/23/2015 left foot radiographs. Left ankle radiographs also performed today. FINDINGS: No fracture or malalignment in the left foot. Distal left fibular metaphysis fracture is better demonstrated on the dedicated ankle views. Achilles and plantar calcaneal heel spurs. No radiopaque foreign bodies. IMPRESSION: 1. No acute radiographic findings in the left foot. 2. Distal left fibular metaphysis fracture. Dictated by: Dictated on workstation # [id number]
[2021-09-06] MEDS ORDERED: ACHD5005 PO (22:53)
[2021-09-06 23:15] VITALS: BP 172/93
== END 2021-09-06 23:20 | disposition home or self-care (01) ==
LOC: EDUNIT# 21:03 → ER 21:05
DX: S82.832A Other fracture of upper and lower end of left fibula, initial encounter for closed fracture (principal); W22.8XXA Striking against or struck by other objects, initial encounter
CPT/HCPCS: 29515; 70450; 72125; 73610; 73630

== ENCOUNTER 2021-09-11 09:08 | Emergency (ER) | payer MEDICARE ==
[~2021-09-11] VITALS: Ht 157.4 cm; Wt 73.5 kg
[2021-09-11] MEDS ORDERED: HYDROcodone/APAP 5 MG/325 MG (LORTAB) TAB PO ONE (10:45)
--- NOTE | 2021-09-11 10:48 | ED General ---
General Chief Complaint: General Problems/Pain Stated Complaint: ANKLE PAIN Nursing Triage Note: TO ED PER EMS FROM HOME WAS SEEN IN ED 2 DAYS AGO WITH R FX ANKLE. IN HOME ALONE AND UNABLE TO TAKE CARE OF HER SELF. REPORTS HAS LEFT HER . Source of Information: Patient Exam Limitations: No Limitations History of Present Illness Date Seen by Provider: Sep 11, 2021 Time Seen by Provider: 10:25 Initial Comments Patient to the ER by EMS from home with chief complaint of uncontrolled pain from her left ankle fracture from a couple days ago. She is having difficulty with mobility. She says she cannot use the crutches very well. Her is in [place] taking care of his mother and she would like to at least do a short- term stay and an assisted living or long-term care facility. Patient follows with Dr. Ashley Banegas. Patient states she takes the hydrocodone 5 and gets about 1 to 2 hours of pain relief. She says she took 1 prior to coming here and it has not kicked in yet. She is not on chronic opiates. She is not having any numbness or tingling in her foot. EMS noted that her blood sugar was in the 300s and the patient remark she has not taken her NovoLog this morning for her diabetes type 2. Allergies and Home Medications Allergies Coded Allergies: Fish Containing Products (Verified Allergy, Unknown, 01/25/19) FROM UNCODED ALLERGIES ketoprofen (Verified Allergy, Unknown, 01/18/19) mushroom (Verified Allergy, Unknown, 01/25/19) FROM UNCODED ALLERGIES Patient Home Medication List Home Medication List Reviewed: Yes Acetaminophen (Tylenol Extra Strength) 500 Mg Tablet, 500-1,000 MG PO Q6H PRN for PAIN-MILD, (Reported) Entered as Reported by: STEVE LYONS on 12/09/17 0944 Aspirin (Aspirin EC) 81 Mg Tablet.dr, 81 MG PO DAILY, (Reported) Entered as Reported by: STEVE LYONS on 05/21/15 1427 Atorvastatin Calcium (Atorvastatin Calcium) 40 Mg Tablet, 40 MG PO DAILY, ( Reported) Entered as Reported by: STEVE LYONS on 12/09/17 0933 Calcium Carbonate (Calcium Carbonate) 500 Mg Tablet, 500 MG PO UD PRN for INDIGESTION, (Reported) Entered as Reported by: STEVE LYONS on 12/09/17 0933 Cefuroxime Axetil (Cefuroxime) 250 Mg Tablet, 250 MG PO BID Prescribed by: LAURA ALBA on 07/24/21 191 Cholecalciferol (Vitamin D3) (Vitamin D3) 1,000 Unit Tablet, 1,000 UNIT PO DAILY, (Reported) Entered as Reported by: STEVE LYONS on 12/09/17932 Citalopram Hydrobromide (Celexa) 10 Mg Tablet, 10 MG PO DAILY Prescribed by: NILAY ZARAGOZA on 08/19/21 1508 Cyclobenzaprine HCl (Cyclobenzaprine HCl) 10 Mg Tablet, 10 MG PO TID Prescribed by: MARIO JACOBSEN on 12/18/20 154 Evolocumab (Repatha Sureclick) 140 Mg/1 Ml Pen.injctr, 140 MG SQ EVERY 14 DAYS, (Reported) Entered as Reported by: STEVE LYONS on 12/09/17932 Furosemide (Lasix) 20 Mg Tablet, 20 MG PO PRN Prescribed by: FABY CHANDLER on 12/09/17 1321 Hydrocodone/Acetaminophen (Hydrocodone-Acetamin 5-325 mg) 1 Each Tablet, 1 TAB PO Q6H PRN for PAIN-MODERATE (5-7) Prescribed by: MARIO JACOBSEN on 12/18/20 1540 Hydrocodone/Acetaminophen (Hydrocodone-Acetamin 5-325 mg) 1 Each Tablet, 1 TAB PO Q4H PRN for PAIN-MODERATE (5-7) Prescribed by: LAURA ALBA on 09/06/21 2253 Hydrocodone/Acetaminophen (Hydrocodone-Acetamin 10-325 mg) 1 Each Tablet, 1 EACH PO Q4H Prescribed by: DAIN SHEPHERD on 09/11/21 1359 Insulin Aspart (Novolog) 100 Unit/1 Ml Susp, SQ AC, (Reported) Entered as Reported by: PATRICIO REAVES on 06/15/16 1513 Insulin Detemir (Levemir Flextouch) 100 Unit/1 Ml Insuln.pen, 26 UNITS SQ HS, (Reported) Entered as Reported by: PATRICIO REAVES on 06/15/16 1513 Lisinopril (Lisinopril) 5 Mg Tablet, 5 MG PO DAILY, (Reported) Entered as Reported by: STEVE LYONS on 5932 Metformin HCl (Metformin HCl ER) 1,000 Mg Tab.er.24, 1,000 MG PO BID WITH MEALS, (Reported) Entered as Reported by: STEVE LYONS on 12/09/17932 Metoprolol Succinate (Metoprolol Succinate) 25 Mg Tab.er.24h, 25 MG PO DAILY, (Reported) Entered as Reported by: STEVE LYONS on 12/09/17932 Nitroglycerin (Nitroglycerin) 0.4 Mg Tab.subl, 0.4 MG SL UD PRN for CHEST PAIN, (Reported) Entered as Reported by: STEVE LYONS on 12/09/17932 Ondansetron (Ondansetron Odt) 4 Mg Tab.rapdis, 4 MG PO Q6H PRN for NAUSEA/VOMITING Prescribed by: DAIN SHEPHERD on 07/25/18 0532 Oxycodone HCl/Acetaminophen (Oxycodone-Acetaminophen 5-325) 1 Each Tablet, 1-2 TAB PO Q6H PRN for PAIN-MODERATE, (Reported) Entered as Reported by: STEVE LYONS on 12/09/17932 Pantoprazole Sodium (Protonix) 40 Mg Tablet.dr, 40 MG PO DAILY Prescribed by: JESS NEWBERRY on 01/25/19 1634 Sennosides/Docusate Sodium (Senokot-S Tablet) 1 Each Tablet, 2 TAB PO BID, (Reported) Entered as Reported by: STEVE LYONS on 12/09/17932 Spironolactone (Aldactone) 25 Mg Tablet, 12.5 MG PO DAILY, (Reported) Entered as Reported by: STEVE LYONS on 12/09/17932 Tramadol HCl (Tramadol HCl) 50 Mg Tablet, 50 MG PO Q6H PRN for PAIN-MODERATE, (Reported) Entered as Reported by: STEVE LYONS on 12/09/17932 Review of Systems Review of Systems Constitutional: No chills, No diaphoresis EENTM: No ear discharge, No ear pain Respiratory: No cough, No short of breath Cardiovascular: No chest pain, No palpitations Gastrointestinal: No abdominal pain, No nausea, No vomiting Genitourinary: No discharge, No dysuria Musculoskeletal: see HPI, joint pain, joint swelling Skin: see HPI; No change in color, No change in hair/nails Psychiatric/Neurological: Anxiety; Denies Depressed All Other Systems Reviewed Negative Unless Noted: Yes Past Zrazfxe-Sesukn-Rruxfj Hx Patient Social History Tobacco Use?: No Substance use?: No Alcohol Use?: No Immunizations Up To Date Tetanus Booster (TDap): Less than 5yrs PED Vaccines UTD: No Seasonal Allergies Seasonal Allergies: No Past Medical History Surgery/Hospitalization HX: CABG Surgeries: Yes (lense inserted in L eye) Cardiac, CABG, Coronary Stent, Gallbladder, Oophorectomy, Orthopedic, Rectal, Tonsillectomy, 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 Respiratory: Yes (SMOKED 5 PPD ALL OF LIFE, QUIT IN 2018) Chronic Bronchitis, COPD Currently Using CPAP: No Currently Using BIPAP: No Cardiac: Yes (STENTS X 13; 3 VESSEL CABG 12/02/17 AT ; CHF; RBBB) Coronary Artery Disease, Heart Attack, High Cholesterol, Hypertension Neurological: Yes (MILD SPEECH IMPAIRMENT) Neuropathy, Stroke, TIA 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 Disorders: Yes (CERVICAL CANCER) Female 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 Disorders: Denies [employer] TE[employer]ER History: Hysterectomy, 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, Menopausal Sexually Transmitted Disease: No HIV/AIDS: No Genitourinary: No Gastrointestinal: Yes Gastroesophageal Reflux, Hemorrhoids, Ulcer Musculoskeletal: Yes Arthritis, Chronic Back Pain Endocrine: Yes Diabetes, Insulin dep HEENT: Yes (TEETH REMOVED; DIABETIC RETINOPATHY) Cancer: Yes (S/P SURGERY ONLY) Cervical Did You Recieve Any Treatments: Yes What Type of Treatment Did You: Surgical Intervention Psychosocial: Yes Anxiety Integumentary: No Blood Disorders: No Family Medical History Alcoholism Arthritis Asthma Cardiovascular disease Cataracts Colon cancer Completed stroke Coronary thrombosis Diabetes mellitus Gastroenteritis Glaucoma Headache disorder Hypertension Kidney disease Psychosocial problem Respiratory disorder Seizure disorder Severe allergy Thyroid disease Visual disorder Heart Disease, Hypertension Physical Exam Vital Signs Vital Signs - First Documented 09/11/21 09:11 Pulse 86 Resp 18 B/P (MAP) 119/69 (86) Pulse Ox 98 O2 Delivery Room Air Capillary Refill : Less Than 3 Seconds Height, Weight, BMI Height: 5'1.00" Weight: 164lbs. 0.0oz. 74.141112dc; 29.00 BMI Method:Stated General Appearance: WD/WN, Mild Distress Eyes: Bilateral Eye Normal Inspection, Bilateral Eye PERRL, Bilateral Eye EOMI HEENT: PERRL/EOMI, Pharynx Normal, Moist Mucous Membranes Neck: Full Range of Motion, Normal Inspection Respiratory: Lungs Clear, Normal Breath Sounds, No Accessory Muscle Use, No Respiratory Distress Cardiovascular: Regular Rate, Rhythm, No Edema, Normal Peripheral Pulses Gastrointestinal: Normal Bowel Sounds, Non Tender, Soft Extremity: Normal Capillary Refill, Normal Inspection Neurologic/Psychiatric: Alert, Oriented x3, No Motor/Sensory Deficits, Normal Mood/Affect Skin: Normal Color, Warm/Dry Progress/Results/Core Measures Suspected Sepsis SIRS Temperature: Pulse: 86 Respiratory Rate: 18 Laboratory Tests 09/11/21 11:30: White Blood Count 9.9 Blood Pressure 119 /69 Mean: 86 Laboratory Tests 09/11/21 11:30: Creatinine 0.81, Platelet Count 184, Total Bilirubin 0.6 Results/Orders Lab Results Laboratory Tests Test 09/11/21 11:00 09/11/21 11:30 09/11/21 13:09 Range/Units Urine Color YELLOW Urine Clarity CLEAR Urine pH 6.0 5-9 Urine Specific [place] <=1.005 1.016-1.022 Urine Protein NEGATIVE NEGATIVE Urine Glucose (UA) 3+ H NEGATIVE Urine Ketones NEGATIVE NEGATIVE Urine Nitrite NEGATIVE NEGATIVE Urine Bilirubin NEGATIVE NEGATIVE Urine Urobilinogen 0.2 < = 1.0 MG/DL Urine Leukocyte Esterase NEGATIVE NEGATIVE Urine RBC (Auto) NEGATIVE NEGATIVE Urine RBC 0-2 /HPF Urine WBC 0-2 /HPF Urine Squamous Epithelial Cells 0-2 /HPF Urine Renal Epithelial Cells 0-2 /HPF Urine Crystals NONE /LPF Urine Bacteria TRACE /HPF Urine Casts NONE /LPF Urine Mucus NEGATIVE /LPF Urine Culture Indicated NO Glucometer 400 *H 198 H 70-110 MG/DL White Blood Count 9.9 4.3-11.0 10^3/uL Red Blood Count 4.31 3.80-5.11 10^6/uL Hemoglobin 12.9 11.5-16.0 g/dL Hematocrit 39 35-52 % Mean Corpuscular Volume 91 80-99 fL Mean Corpuscular Hemoglobin 30 25-34 pg Mean Corpuscular Hemoglobin Concent 33 32-36 g/dL Red Cell Distribution Width 12.6 10.0-14.5 % Platelet Count 184 130-400 10^3/uL Mean Platelet Volume 12.1 9.0-12.2 fL Immature Granulocyte % (Auto) 0 % Neutrophils (%) (Auto) 71 42-75 % Lymphocytes (%) (Auto) 22 12-44 % Monocytes (%) (Auto) 6 0-12 % Eosinophils (%) (Auto) 1 0-10 % Basophils (%) (Auto) 0 0-10 % Neutrophils # (Auto) 7.0 1.8-7.8 10^3/uL Lymphocytes # (Auto) 2.2 1.0-4.0 10^3/uL Monocytes # (Auto) 0.5 0.0-1.0 10^3/uL Eosinophils # (Auto) 0.1 0.0-0.3 10^3/uL Basophils # (Auto) 0.0 0.0-0.1 10^3/uL Immature Granulocyte # (Auto) 0.0 0.0-0.1 10^3/uL Sodium Level 140 135-145 MMOL/L Potassium Level 4.1 3.6-5.0 MMOL/L Chloride Level 105 98-107 MMOL/L Carbon Dioxide Level 21 21-32 MMOL/L Anion Gap 14 5-14 MMOL/L Blood Urea Nitrogen 27 H 7-18 MG/DL Creatinine 0.81 0.60-1.30 MG/DL Estimat Glomerular Filtration Rate 80 BUN/Creatinine Ratio 33 Glucose Level 291 H 70-105 MG/DL Calcium Level 9.8 8.5-10.1 MG/DL Corrected Calcium 10.0 8.5-10.1 MG/DL Total Bilirubin 0.6 0.1-1.0 MG/DL Aspartate Amino Transf (AST/SGOT) 11 5-34 U/L Alanine Aminotransferase (ALT/SGPT) 13 0-55 U/L Alkaline Phosphatase 72 40-136 U/L Total Protein 7.6 6.4-8.2 GM/DL Albumin 3.8 3.2-4.5 GM/DL My Orders Orders - [place] Hydrocodone/Apap 5/325 Tablet (Lortab 5 (09/11/21 10:45) Cbc With Automated Diff (09/11/21 10:50) Comprehensive Metabolic Panel (09/11/21 10:50) Accucheck Stat ONCE (09/11/21 10:50) Insulin Aspart (Novolog) (Novolog (Charg (09/11/21 11:00) Ua Culture If Indicated (09/11/21 10:50) Insulin Aspart (Novolog) (Novolog (Charg (09/11/21 11:15) Hydrocodone/Apap 5/325 Tablet (Lortab 5 (09/11/21 11:50) Accucheck Stat ONCE (09/11/21 13:00) Morphine Injection (Morphine Injection (09/11/21 12:54) Medications Given in ED Current Medications Medications Dose Ordered Sig/Kelli Route Start Time Stop Time Status Last Admin Dose Admin Acetaminophen/ Hydrocodone Bitart 2 ea ONCE ONCE PO 09/11/21 10:45 09/11/21 10:46 DC 09/11/21 11:41 2 EA Insulin Aspart 15 unit ONCE ONCE SC 09/11/21 11:15 09/11/21 11:16 DC 09/11/21 11:41 15 UNIT Vital Signs/I&O 09/11/21 09/11/21 09:11 14:04 Pulse 86 77 Resp 18 18 B/P (MAP) 119/69 (86) 105/40 Pulse Ox 98 94 O2 Delivery Room Air Capillary Refill : Less Than 3 Seconds Blood Pressure Mean: 86 Progress Note : Time: 13:55 Progress Note Repeat blood sugar 198 after dose of insulin. I discussed the case with the patient's /DPOA. We took her splint off and examined her leg which does have a little bit of swelling in her foot but nothing more than what would be expected. The splint does not appear to be occlusive and she has good pulses and no paresthesias. 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 This did not help her pain a lot so we give her 4 mg IM morphine and will provide her with some [place] tens. Her son and daughter were contacted as well as her to give an update and will take her home. She really wants a wheelchair to help with mobility. DME was contacted. We also spoke with Dr. Gabriel on-call for [facility] and she will work on addressing her mobility needs and getting her a wheelchair. Departure Impression Primary Impression: Ankle fracture Qualified Codes: S82.892D - Other fracture of left lower leg, subsequent encounter for closed fracture with routine healing Additional Impressions: Inadequate pain control Hyperglycemia due to type 2 diabetes mellitus Qualified Codes: E11.65 - Type 2 diabetes mellitus with hyperglycemia; Z79.4 - FDC (current) use of insulin Disposition: HOME, SELF-CARE Condition: Stable Departure-Patient Inst. Decision time for Depature: 13:57 Referrals: ASHLEY BANEGAS MD (PCP/Family) Primary Care Physician Patient Instructions: Splint Care, High Blood Sugar, Adult ED Add. Discharge Instructions: Keep your ankle elevated above the level of your heart at all times if possible. Ice 20 minutes on every 2 hours for the first day or 2. Tylenol and Motrin as necessary. Hydrocodone 10 x 325 every 4 hours as necessary for severe pain keeping you from being functional. Make a follow-up appointment with the orthopedic surgeon through the primary care office. All discharge instructions reviewed with patient and/or family. Voiced understan naveed. Scripts Hydrocodone/Acetaminophen (Hydrocodone-Acetamin 10-325 mg) 1 Each Tablet 1 EACH PO Q4H for 5 Days, #25 TAB 0 Refills Prov: DAIN SHEPHERD 09/11/21 DAIN SHEPHERD Sep 11, 2021 10:47
[2021-09-11] MEDS ORDERED: inSUlin ASPART (NovoLOG) 1 UNIT/0.01 ML (CHARGE PER UNIT) SC ONE ×2 (11:00→11:15)
[2021-09-11 11:09] LABS: BILIRUBIN,URINE NEGATIVE (NEGATIVE); CLARITY,URINE CLEAR; COLOR,URINE YELLOW; GLUCOSE, URINE (UA) 3+ (NEGATIVE); KETONES,URINE NEGATIVE (NEGATIVE); LEUKOCYTE ESTERASE ,URINE NEGATIVE (NEGATIVE); NITRITE,URINE NEGATIVE (NEGATIVE); PROTEIN,URINE NEGATIVE (NEGATIVE)
[2021-09-11 11:35] LABS: BACTERIA,URINE TRACE /HPF; RBC,URINE 0-2 /HPF; WBC,URINE 0-2 /HPF
[2021-09-11 11:36] LABS: RENAL EPITHELIAL CELLS,URINE 0-2 /HPF; SQUAMOUS EPITHELIAL CELL,UR 0-2 /HPF
[2021-09-11 11:39] LABS: BASOPHILS % (AUTO) 0 % (0-10); EOSINOPHILS # (AUTO) 0.1 10^3/uL (0.0-0.3); EOSINOPHILS % (AUTO) 1 % (0-10); HEMATOCRIT 39 % (35-52); HEMOGLOBIN 12.9 g/dL (11.5-16.0); LYMPHOCYTES # (AUTO) 2.2 10^3/uL (1.0-4.0); LYMPHOCYTES % (AUTO) 22 % (12-44); MEAN CORPUSCULAR HEMOGLOBIN 30 pg (25-34); MEAN CORPUSCULAR HGB CONC 33 g/dL (32-36); MEAN CORPUSCULAR VOLUME 91 fL (80-99); MEAN PLATELET VOLUME 12.1 fL (9.0-12.2); MONOCYTES # (AUTO) 0.5 10^3/uL (0.0-1.0); MONOCYTES % (AUTO) 6 % (0-12); NEUTROPHILS % (AUTO) 71 % (42-75); PLATELET COUNT 184 10^3/uL (130-400); WHITE BLOOD COUNT 9.9 10^3/uL (4.3-11.0)
[2021-09-11] MEDS ORDERED: HYDROcodone/APAP 5 MG/325 MG (LORTAB) TAB ONE (11:50)
[2021-09-11 12:00] LABS: ALBUMIN 3.8 GM/DL (3.2-4.5); POTASSIUM 4.1 MMOL/L (3.6-5.0)
[2021-09-11 12:01] LABS: CALCIUM 9.8 MG/DL (8.5-10.1)
[2021-09-11 12:02] LABS: TOTAL PROTEIN 7.6 GM/DL (6.4-8.2)
[2021-09-11 12:04] LABS: BILIRUBIN,TOTAL 0.6 MG/DL (0.1-1.0)
[2021-09-11 12:06] LABS: CREATININE SERUM 0.81 MG/DL (0.60-1.30)
[2021-09-11] MEDS ORDERED: morphine INJ 10 MG/ML 1ML (SYR OR VIAL) IM STA (12:54)
[2021-09-11] MEDS ORDERED: HYDR-3820 PO (13:59)
[2021-09-11 14:04] VITALS: BP 105/40
== END 2021-09-11 14:07 | disposition home or self-care (01) ==
LOC: EDUNIT# 09:08 → ER 09:09
DX: S82.892D Other fracture of left lower leg, subsequent encounter for closed fracture with routine healing (principal); E11.65 Type 2 diabetes mellitus with hyperglycemia; Z79.4 Long term (current) use of insulin; X58.XXXD Exposure to other specified factors, subsequent encounter
CPT/HCPCS: 36415; 80053; 81000; 82947; 85025

== ENCOUNTER → 2021-09-19 | Outpatient (CLI) | payer MEDICARE ==
[~2021-09-19] MED LIST changes: +GADOBUTROL 15 MMOL/15 ML (GADAVIST) VIAL IV ONE; +HYDR-3820 PO
--- NOTE | 2021-09-20 17:06 | Diagnostic Imaging Report ---
EXAMINATION: MRI BREAST BILAT W W/O CON INDICATION: Left bloody nipple discharge. Patient denies any other breast-related symptoms. No reported family history of breast cancer. TECHNIQUE: Utilizing a 1.5 Talia magnet, the patient was placed in the prone position with a dedicated breast coil in place. Axial STIR, T2 fat sat, T1 and T1 fat-sat images are obtained without contrast. Postcontrast high-resolution dynamic images are also obtained. Pre and post contrasted images are then evaluated with [employer] for evaluation of possible angiogenesis. 7 mL of Gadavist gadolinium contrast material was administered intravenously. COMPARISON: Diagnostic mammogram and ultrasound performed on 05/01/2021. Comparison is also made to additional screening mammograms performed in 2018 and 2019. FINDINGS: The breasts are composed of heterogeneous fibroglandular tissue. There is moderate background parenchymal enhancement, with scattered foci of enhancement in both breasts also felt to be related to background. There is no suspicious mass or non-mass enhancement in either breast above background. There is symmetric physiologic enhancement involving both nipples. No discrete mass is noted involving the left nipple or retroareolar region outside of background. There is no axillary or internal mammary adenopathy. The patient is status post median sternotomy. The ascending aorta is top normal in size, similar in appearance to prior chest CT performed in 2019. IMPRESSION: No MR evidence of malignancy in either breast. No suspicious mass or non-mass enhancement to account for the patient's left bloody nipple discharge. Prior diagnostic mammogram and ultrasound were also negative. Breast surgical consultation and/or duct excision is recommended for further evaluation. BI-RADS Category 1: Negative RECOMMENDATIONS: Breast surgical consultation and possible duct exploration/excision can be considered for further evaluation of patient's left bloody nipple discharge if not already performed. Continued surveillance is recommended with annual screening mammogram, which will be due in April,. Dictated by: Dictated on workstation # [id number]
== END ==
LOC: RAD 13:15
PROVIDERS: ATTEND Family Medicine
DX: N64.52 Nipple discharge (principal); R92.8 Other abnormal and inconclusive findings on diagnostic imaging of breast
CPT/HCPCS: 77049

== ENCOUNTER → 2022-03-07 | Outpatient (CLI) | payer MEDICARE ==
[~2022-03-07] MED LIST changes: -GADOBUTROL 15 MMOL/15 ML (GADAVIST) VIAL IV ONE; +GADOTERATE 0.5 MMOL/ML (CLARISCAN) 15 ML VIAL IV ONE; -QUIN20TA16 PO; +QUIN20TA36 PO
--- NOTE | 2022-03-07 15:17 | Diagnostic Imaging Report ---
CLINICAL INDICATION: Patient has abnormal areas in the brain. Patient has headaches. EXAM: MRI of the brain performed without and with 9 cc of IV contrast. Sequences include axial DWI, ADC map, axial gradient echo, axial FLAIR, axial T1, axial T2, axial T1 post IV contrast whole brain, coronal T1 fat-sat post IV contrast whole brain, and sagittal T1 fat-sat post IV contrast whole brain. COMPARISON: Head CT without contrast dated 10/19/2021. MRI of the brain with and without contrast dated 04/09/2021. FINDINGS: There is no evidence of acute cerebral infarct, intracranial hemorrhage, or gross mass effect. There is no abnormal mass-like enhancement. Stable large developmental venous anomaly involving the high parasagittal posterior right frontal/parietal region. The diameter of this developmental venous anomaly measures roughly 5 mm in width. There is brain parenchymal volume loss again seen which has not significantly changed in the interim. There are multiple focal areas of high T2 signal white matter changes involving both cerebral hemispheres, likely representing chronic small vessel ischemic disease. There is normal becker-white matter distinction. There is no significant midline shift or herniation. There is no evidence of hydrocephalus. The basal cisterns are unremarkable. The skull, extracranial soft tissue, and orbits are unremarkable. There is minimal mucosal thickening involving both maxillary sinuses, sphenoid sinus, and ethmoid sinus. Temporal bones show no significant abnormality. IMPRESSION: 1: There is no evidence of acute intracranial process. 2: Age-related brain parenchymal changes including mild chronic small vessel ischemic disease. 3: Stable large developmental venous anomaly involving the high parasagittal posterior right frontal/parietal lobe region. Dictated by: Dictated on workstation # [id number]
== END ==
LOC: RAD 14:45
PROVIDERS: ATTEND Family Medicine
DX: G31.1 Senile degeneration of brain, not elsewhere classified (principal); I67.82 Cerebral ischemia
CPT/HCPCS: 70553

== ENCOUNTER → 2022-04-15 | Outpatient (CLI) | payer MEDICARE ==
[~2022-04-15] MED LIST changes: -GADOTERATE 0.5 MMOL/ML (CLARISCAN) 15 ML VIAL IV ONE
--- NOTE | 2022-04-15 14:34 | Diagnostic Imaging Report ---
INDICATION: Postmenopausal screening COMPARISON: Baseline FINDINGS: AP Spine L1-L4: [BMD (g/cm2): 1.276] [T-Score: 0.6] [Z-Score: 2.1] [BMD Previous: NA] [BMD % Change: NA] LT Hip Neck: [BMD (g/cm2): 0.819] [T-Score: -1.6] [Z-Score: -0.1] LT Hip Total: [BMD (g/cm2):0.902] [T-Score:-0.8] [Z-Score: 0.4] [BMD Previous: NA] [BMD % Change: NA] RT Hip Neck: [BMD (g/cm2):0.779] [T-Score:-1.9] [Z-Score:-0.4] RT Hip Total: [BMD (g/cm2):0.903] [T-score:-0.8] [Z-Score:0.4] [BMD Previous:NA] [BMD % Change:NA] *Indicates significant change from prior examination based on 95% confidence level. World Health Organization criteria for BMD interpretation classify patients as Normal (T-score at or above -1.0), Osteopenic (T-score between -1.0 and -2.5) or Osteoporotic (T-score at or below -2.5). LIMITATIONS AND MODIFICATION: None. FRACTURE RISK (FRAX SCORE): The ten year probability of (%): Major Osteoporotic Fracture: [17.0] Hip Fracture: [2.5] IMPRESSION: 1. Osteopenia (Low bone mass). 2. Baseline examination. 3. See below National Osteoporosis Foundation guidelines on when to potentially initiate pharmacologic therapy. Based on the National Osteoporosis Foundation Guidelines, pharmacologic treatment should be initiated in any of the following, unless clinical conditions suggest otherwise: * Any patient with prior fragility fracture of the hip or vertebrae. A spine fracture indicates 5X risk for subsequent spine fracture and 2X risk for subsequent hip fracture. * Osteoporosis (T-score <-2.5). * Postmenopausal women and men age 50 and older with low bone mass/osteopenia (T-score between -1.0 and -2.5) by DXA and 10-year major osteoporotic fracture greater than 20% or a 10-year probability of hip fracture greater than 3%. These fracture risks are supplied above in the FRAX score, if applicable. * Clinician judgement and/or patient preferences may indicate treatment for people with 10-year fracture probabilities above or below these levels. Dictated by: Dictated on workstation # [id number]
== END ==
LOC: RAD 13:00
PROVIDERS: ATTEND Family Medicine
DX: M85.80 Other specified disorders of bone density and structure, unspecified site (principal); Z78.0 Asymptomatic menopausal state
CPT/HCPCS: 77080

== ENCOUNTER → 2022-06-10 | Outpatient (CLI) | payer MEDICARE | LOC: CARD 09:30 | PROVIDERS: ATTEND Internal Medicine Cardiovascular Disease | DX: I11.9 Hypertensive heart disease without heart failure (principal); I34.89 Other nonrheumatic mitral valve disorders; I25.10 Atherosclerotic heart disease of native coronary artery without angina pectoris | CPT/HCPCS: 93306 ==

== ENCOUNTER → 2022-06-23 | Outpatient (CLI) | payer MEDICARE ==
[~2022-06-23] VITALS: Ht 154 cm; Wt 69.0 kg
[~2022-06-23] MED LIST changes: +CATHETER FLUSH 10 ML SYR IVP PRN; +REGADENOSON 0.4 MG/5 ML SYR (LEXISCAN) IV ONE
[2022-06-23 09:35] VITALS: BP 191/91
--- NOTE | 2022-06-23 12:35 | Cardiology Stress Test Report ---
Stress Test Report Date of Procedure/Referring: Date of Procedure: Jun 23, 2022 PCP Deann Parker MD Admitting Physician Admitting Physician: Attending Physician: Faby Hughes MD Baseline Heart Rate: 78 Baseline Blood Pressure: Blood Pressure Systolic: 191 Blood Pressure Diastolic: 91 Baseline Vitals Vital Signs Date Time Temp Pulse Resp B/P (MAP) Pulse Ox O2 Delivery O2 Flow Rate FiO2 06/23/22 09:35 78 191/91 (124) 98 Baseline EKG: Baseline EKG: NSR Summary After explaining the procedure to the patient, she signed a consent and then brought to the stress nuclear laboratory. Patient received 0.4 mg Lexiscan for stress test, ECG, heart rate and blood pressure were monitored continuously. Resting and stress dose of radio tracer were injected, imaging was acquired and reviewed in short axis, horizontal long axis and vertical long axis views. TID: 1.09 SSS: 1 SDS: 1 1. Patient tolerated Lexiscan well 2. No significant ischemia or infarction on SPECT images 3. No gated images were available Copy Copies To 1: [facility] FABY HUGHES MD Jun 23, 2022 12:34
== END ==
LOC: CARD 07:37
PROVIDERS: ATTEND Internal Medicine Cardiovascular Disease
DX: I10 Essential (primary) hypertension (principal); I25.10 Atherosclerotic heart disease of native coronary artery without angina pectoris; R07.2 Precordial pain
CPT/HCPCS: 78452; A9502

== ENCOUNTER 2023-01-18 18:10 | Emergency (ER) | payer MEDICARE ==
[~2023-01-18] VITALS: Ht 157.4 cm; Wt 72.1 kg
[~2023-01-18 18:10] MED LIST changes: -CATHETER FLUSH 10 ML SYR IVP PRN; -INSU100I29 SQ; +INSU100I30 SQ; -REGADENOSON 0.4 MG/5 ML SYR (LEXISCAN) IV ONE
[2023-01-18] MEDS ORDERED: ACETAMINOPHEN 500 MG TAB (TYLENOL) PO ONE (19:00)
[2023-01-18] MEDS ORDERED: KETOROLAC 30 MG/ML VIAL IM ONE (19:00)
[2023-01-18] MEDS ORDERED: ORPHENADRINE 60 MG/2 ML (NORFLEX) AMP (ED ONLY) IM ONE (19:00)
--- NOTE | 2023-01-18 19:02 | ED Hip Pain/Injury ---
General Chief Complaint: Hip/Pelvic Problems Stated Complaint: INJ LEFT HIP Nursing Triage Note: PT AMB TO FT 3 ASSISTED BY CANE WITH CC OF LEFT HIP AFTER SHE TRIPPED OVER A CAT IN THE KITCHEN AND FELL YESTERDAY. Source: patient, family Exam Limitations: no limitations (LESLIE FELICIANO APRN) History of Present Illness Date Seen by Provider: Jan 18, 2023 Time Seen by Provider: 18:42 Initial Comments 67-year-old female presents to the ER with complaints of left hip pain starting today. She states that she fell at home yesterday, but the pain did not start until today. She states that she fell due tripping over her cat. States that she also hit the left posterior side of her head. Denies any head pain currently. Denies loss of consciousness. States she does not take any blood thinners. She does report that the pain radiates down her leg when she walks. Patient is ambulatory. Reports chronic diabetic neuropathy, denies any new numbness or tingling in her legs, denies saddle paresthesia. States she has chronic issues with occasional urinary incontinence, denies any change in this, denies bowel incontinence. She denies any pain in her spine. Patient's daughter mentioned that patient did a lot of walking today. (LESLIE FELICIANO APRN) Allergies and Home Medications Allergies Coded Allergies: Fish Containing Products (Verified Allergy, Unknown, 01/25/19) FROM UNCODED ALLERGIES ketoprofen (Verified Allergy, Unknown, 01/18/19) mushroom (Verified Allergy, Unknown, 01/25/19) FROM UNCODED ALLERGIES Patient Home Medication List Home Medication List Reviewed: Yes (LESLIE FELICIANO APRN) Acetaminophen (Tylenol Extra Strength) 500 Mg Tablet, 500-1,000 MG PO Q6H PRN for PAIN-MILD, (Reported) Entered as Reported by: STEVE LYONS on 12/09/17 0944 Aspirin (Aspirin EC) 81 Mg Tablet.dr, 81 MG PO DAILY, (Reported) Entered as Reported by: STEVE LYONS on 05/21/15 1427 Atorvastatin Calcium (Atorvastatin Calcium) 40 Mg Tablet, 40 MG PO DAILY, (Reported) Entered as Reported by: STEVE LYONS on 12/09/17 0933 Calcium Carbonate (Calcium Carbonate) 500 Mg Tablet, 500 MG PO UD PRN for INDIGESTION, (Reported) Entered as Reported by: STEVE LYONS on 12/09/17 09 Cefuroxime Axetil (Cefuroxime) 250 Mg Tablet, 250 MG PO BID Prescribed by: LAURA ALBA on 07/24/21 191 Cephalexin (Cephalexin) 500 Mg Tablet, 500 MG PO BID Prescribed by: MYLES STARKEY on 10/19/21 1613 Cholecalciferol (Vitamin D3) (Vitamin D3) 1,000 Unit Tablet, 1,000 UNIT PO DAILY, (Reported) Entered as Reported by: STEVE LYONS on 12/09/17932 Citalopram Hydrobromide (Celexa) 10 Mg Tablet, 10 MG PO DAILY Prescribed by: NILAY ZARAGOZA on 08/19/21 1508 Cyclobenzaprine HCl (Cyclobenzaprine HCl) 10 Mg Tablet, 10 MG PO TID Prescribed by: MARIO JACOBSEN on 12/18/20 1540 Cyclobenzaprine HCl (Cyclobenzaprine HCl) 10 Mg Tablet, 10 MG PO TID Prescribed by: Leslie Feliciano on 01/18/23 203 Evolocumab (Repatha Sureclick) 140 Mg/1 Ml Pen.injctr, 140 MG SQ EVERY 14 DAYS, (Reported) Entered as Reported by: STEVE LYONS on 12/09/17932 Furosemide (Lasix) 20 Mg Tablet, 20 MG PO PRN Prescribed by: FABY CHANDLER on 12/09/17 1321 Hydrocodone/Acetaminophen (Hydrocodone-Acetamin 5-325 mg) 1 Each Tablet, 1 TAB PO Q6H PRN for PAIN-MODERATE (5-7) Prescribed by: MARIO JACOBSEN on 12/18/20 1540 Hydrocodone/Acetaminophen (Hydrocodone-Acetamin 5-325 mg) 1 Each Tablet, 1 TAB PO Q4H PRN for PAIN-MODERATE (5-7) Prescribed by: LAURA ALBA on 09/06/21 2253 Hydrocodone/Acetaminophen (Hydrocodone-Acetamin 10-325 mg) 1 Each Tablet, 1 EACH PO Q4H Prescribed by: DAIN SHEPHERD on 09/11/21 1359 Insulin Aspart (Novolog) 100 Unit/1 Ml Susp, SQ AC, (Reported) Entered as Reported by: PATRICIO REAVES on 06/15/161512 Insulin Detemir (Levemir Flextouch) 100 Unit/1 Ml Insuln.pen, 26 UNITS SQ HS, (Reported) Entered as Reported by: PATRICIO REAVES on 06/15/161512 Lisinopril (Lisinopril) 5 Mg Tablet, 5 MG PO DAILY, (Reported) Entered as Reported by: STEVE LYONS on 12/09/17932 Metformin HCl (Metformin HCl ER) 1,000 Mg Tab.er.24, 1,000 MG PO BID WITH MEALS, (Reported) Entered as Reported by: STEVE LYONS on 12/09/17932 Metoprolol Succinate (Metoprolol Succinate) 25 Mg Tab.er.24h, 25 MG PO DAILY, (Reported) Entered as Reported by: STEVE LYONS on 12/09/17932 Nitroglycerin (Nitroglycerin) 0.4 Mg Tab.subl, 0.4 MG SL UD PRN for CHEST PAIN, (Reported) Entered as Reported by: STEVE LYONS on 12/09/17932 Ondansetron (Ondansetron Odt) 4 Mg Tab.rapdis, 4 MG PO Q6H PRN for NAUSEA/VOMITING Prescribed by: DAIN SHEPHERD on 07/25/18 0532 Oxycodone HCl/Acetaminophen (Oxycodone-Acetaminophen 5-325) 1 Each Tablet, 1-2 TAB PO Q6H PRN for PAIN-MODERATE, (Reported) Entered as Reported by: STEVE LYONS on 12/09/17932 Pantoprazole Sodium (Protonix) 40 Mg Tablet.dr, 40 MG PO DAILY Prescribed by: JESS NEWBERRY on 01/25/19 1634 Sennosides/Docusate Sodium (Senokot-S Tablet) 1 Each Tablet, 2 TAB PO BID, (Reported) Entered as Reported by: STEVE LYONS on 12/09/17932 Spironolactone (Aldactone) 25 Mg Tablet, 12.5 MG PO DAILY, (Reported) Entered as Reported by: STEVE LYONS on 12/09/17932 Tramadol HCl (Tramadol HCl) 50 Mg Tablet, 50 MG PO Q6H PRN for PAIN-MODERATE, (Reported) Entered as Reported by: STEVE LYONS on 12/09/17 0933 Review of Systems Constitutional: see HPI (LESLIE FELICIANO APRN) Past Utbfzce-Rqhjpq-Nmehiq Hx Patient Social History Tobacco Use?: No Smoking Status: Former Smoker Substance use?: No Alcohol Use?: No (LESLIE FELICIANO APRN) Immunizations Up To Date Tetanus Booster (TDap): Less than 5yrs PED Vaccines UTD: No (LESLIE FELICIANO APRN) Seasonal Allergies Seasonal Allergies: No (LESLIE FELICIANO APRN) Past Medical History Surgery/Hospitalization HX: DIABETIC, SUSAN, T&A, CARPAL TUNNEL, CABG, HEMORRHOIDECTOMY Surgeries: Yes (lense inserted in L eye) Cardiac, CABG, Coronary Stent, Gallbladder, Oophorectomy, Orthopedic, Rectal, Tonsillectomy, 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 Respiratory: Yes (SMOKED 5 PPD ALL OF LIFE, QUIT IN 2018) Chronic Bronchitis, COPD Currently Using CPAP: No Currently Using BIPAP: No Cardiac: Yes (STENTS X 13; 3 VESSEL CABG 12/02/17 AT ; CHF; RBBB) Coronary Artery Disease, Heart Attack, High Cholesterol, Hypertension Neurological: Yes (MILD SPEECH IMPAIRMENT) Neuropathy, Stroke, TIA 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 Disorders: Yes (CERVICAL CANCER) Female 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 Disorders: 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, 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, Menopausal Sexually Transmitted Disease: No HIV/AIDS: No Genitourinary: No Gastrointestinal: Yes Gastroesophageal Reflux, Hemorrhoids, Ulcer Musculoskeletal: Yes Arthritis, Chronic Back Pain Endocrine: Yes Diabetes, Insulin dep HEENT: Yes (TEETH REMOVED; DIABETIC RETINOPATHY) Cancer: Yes (S/P SURGERY ONLY) Cervical Did You Recieve Any Treatments: Yes What Type of Treatment Did You: Surgical Intervention Psychosocial: Yes Anxiety Integumentary: No Blood Disorders: No (LESLIE FELICIANO APRN) Family Medical History Alcoholism Arthritis Asthma Cardiovascular disease Cataracts Colon cancer Completed stroke Coronary thrombosis Diabetes mellitus Gastroenteritis Glaucoma Headache disorder Hypertension Kidney disease Psychosocial problem Respiratory disorder Seizure disorder Severe allergy Thyroid disease Visual disorder Heart Disease, Hypertension (LESLIE FELICIANO APRN) Physical Exam Vital Signs Vital Signs - First Documented 01/18/23 01/18/23 18:39 20:41 Temp 36.8 Pulse 70 B/P (MAP) 188/84 (118) Pulse Ox 94 O2 Delivery Room Air (DANE,AMNA K DO) Vital Signs Capillary Refill : (LESLIE FELICIANO APRN) Height, Weight, BMI Height: 5'1.00" Weight: 164lbs. 0.0oz. 74.128776al; 29.00 BMI Method:Stated General Appearance: No Apparent Distress, WD/WN Neck: Full Range of Motion, Normal Inspection, Non Tender, Supple Cardiovascular: Regular Rate, Rhythm Respiratory: Lungs Clear, Normal Breath Sounds, No Accessory Muscle Use, No Respiratory Distress Back: Normal Inspection, No Vertebral Tenderness, Other (Muscle tenderness in left lower back just above gluteus and into gluteus) Neurologic/Psychiatric: Alert, Normal Mood/Affect Skin: Normal Color, Warm/Dry (LESLIE FELICIANO APRN) Progress/Results/Core Measures Results/Orders Vital Signs/I&O 01/18/23 01/18/23 18:39 20:41 Temp 36.8 Pulse 70 63 B/P (MAP) 188/84 (118) 176/78 Pulse Ox 94 98 O2 Delivery Room Air (DANE,AMNA K DO) Blood Pressure Mean: 118 Progress Progress Note : Progress Note Patient seen and evaluated, resting comfortably in bed, no acute distress. Base d on exam and symptoms, CT of head and neck as well as pelvis with left hip ordered. Concerned for fracture or dislocation, sciatic nerve pain, muscle strain. Patient has been able to ambulate since fall, and ambulated into ER. 2028 imaging reviewed. Pelvis and hip x-ray shows no acute abnormality. CT of the head shows no acute intracranial findings. Does show atrophic changes and chronic changes in the deep white matter with prominent pain over the right frontoparietal region most likely secondary to venous angioma which has been seen on previous studies. Cervical spine shows degenerative changes at C6 and C7 with no acute abnormality. Results discussed with patient. Patient reports her pain has improved. Will discharge with prescription for Flexeril. Patient instructed to continue taking Tylenol and ibuprofen as needed for pain. Discharge instructions and return precautions provided. (LESLIE FELICIANO APRN) Diagnostic Imaging Diagonstic Imaging: Xray Plain Films/CT/US/NM/MRI: pelvis, hip Comments [facility], [place] NAME: RICCARDO ECHEVARRIA REC#: [id number] PT STATUS: REG ER : 1955 PHYSICIAN: LESLIE FELICIANO APRN ADMIT DATE: 01/18/23/ER Signed Date of Exam:01/18/23 PELVIS WITH LEFT HIP 2-3 VIEWS Indication: Left hip pain AP pelvis and AP and oblique views of the left hip are obtained. No fracture or acute bony abnormality is seen. Joint spaces show moderate degenerative change. Impression: No acute abnormality the pelvis and left hip. Dictated by: Dictated on workstation # [id number] Dict: 01/18/231916 Trans: 01/18/231921 [facility] [id number] Interpreted by: GEN LUZ MD Electronically signed by: GEN LUZ MD 01/18/231921 Diagonstic Imaging: CT Plain Films/CT/US/NM/MRI: c-spine, head Comments [facility], [place] NAME: RICCARDO ECHEVARRIA [facility] REC#: [id number] PT STATUS: REG ER : 1955 PHYSICIAN: LESLIE FELICIANO APRN ADMIT DATE: 01/18/23/ER Draft Date of Exam:01/18/23 CT HEAD/CERVICAL SPINE WO INDICATION: Fall with head and neck pain. TECHNIQUE: Multiple contiguous axial images were obtained through the brain and cervical spine without the use of intravenous contrast. Sagittal and coronal reformations through the cervical spine were then performed. Auto Exposure Controls were utilized during the CT exam to meet ALARA standards for radiation dose reduction. Comparison made to prior study 10/19/2021. CTA head findings: There are diffuse atrophic changes. There is no subdural or epidural collection. Prominent venous structure over the left frontoparietal region remains present and unchanged from the prior study, this is most likely secondary to a venous angioma. There is no ventricular dilatation. There is no intraparenchymal hemorrhage. There are mild chronic changes in the deep white matter. Calvarial windows show no fracture. CT cervical spine findings: There is no evidence of cervical spine fracture. There is no subluxation or malalignment. There is disc space narrowing and osteophyte formation most prominent at C6-C7. The facets are in good alignment. IMPRESSION: CT head demonstrates atrophic change and chronic change in deep white matter with prominent vein over the right frontoparietal region most likely secondary to venous angioma as seen on previous studies. There is no acute intracranial finding or calvarial fracture. CT cervical spine shows degenerative findings at C6-C7 with no acute abnormality. Dictated on workstation # [id number] Dict: 01/18/231918 Trans: 01/18/231923 [facility] [id number] Interpreted by: GEN LUZ MD Electronically signed by: (LESLIE FELICIANO APRN) Departure Impression Primary Impression: Hip pain Qualified Codes: M25.552 - Pain in left hip Additional Impression: Fall Qualified Codes: W19.XXXA - Unspecified fall, initial encounter Disposition: HOME, SELF-CARE Condition: Stable Departure-Patient Inst. Decision time for Depature: 20:32 (LESLIE FELICIANO APRN) Referrals: ASHLEY BANEGAS MD (PCP/Family) Primary Care Physician Patient Instructions: Hip Pain Add. Discharge Instructions: This could be a muscle strain or inflammation of your sciatic nerve. Take Flexeril as needed for pain, it may make you sleepy. Continue taking Tylenol and ibuprofen as needed for pain. You may try heat or ice whichever feels better. Follow-up with your primary care provider if symptoms or not improving. Return for inability to walk, fever, numbness or tingling in your inner thighs or groin area, worsening bladder incontinence, or bowel incontinence, or any other new, concerning, or worsening symptoms. All discharge instructions reviewed with patient and/or family. Voiced understanding. Scripts Cyclobenzaprine HCl (Cyclobenzaprine HCl) 10 Mg Tablet 10 MG PO TID, #21 TAB 0 Refills Prov: LESLIE AGUILAR APRN 01/18/23 ATTENDING PHYSICIAN NOTE: I WAS PHYSICALLY PRESENT ER PHYSICIAN, BUT I WAS NOT INVOLVED IN ANY DECISION MAKING OR ANY CARE OF THIS PATIENT, AND I AM NOT COLLABORATING PHYSICIAN. (AMNA VELA DO) LESLIE FELICIANO APRN Jan 18, 2023 19:02 AMNA VELA DO Jan 23, 2023 23:15
[2023-01-18] MEDS ORDERED: CYCLOBENZAPRINE 10 MG (FLEXERIL) TAB PO ONE (19:15)
--- NOTE | 2023-01-18 19:19 | Diagnostic Imaging Report ---
Indication: Left hip pain AP pelvis and AP and oblique views of the left hip are obtained. No fracture or acute bony abnormality is seen. Joint spaces show moderate degenerative change. Impression: No acute abnormality the pelvis and left hip. Dictated by: Dictated on workstation # [id number]
--- NOTE | 2023-01-18 19:24 | Diagnostic Imaging Report ---
INDICATION: Fall with head and neck pain. TECHNIQUE: Multiple contiguous axial images were obtained through the brain and cervical spine without the use of intravenous contrast. Sagittal and coronal reformations through the cervical spine were then performed. Auto Exposure Controls were utilized during the CT exam to meet ALARA standards for radiation dose reduction. Comparison made to prior study 10/19/2021. CTA head findings: There are diffuse atrophic changes. There is no subdural or epidural collection. Prominent venous structure over the left frontoparietal region remains present and unchanged from the prior study, this is most likely secondary to a venous angioma. There is no ventricular dilatation. There is no intraparenchymal hemorrhage. There are mild chronic changes in the deep white matter. Calvarial windows show no fracture. CT cervical spine findings: There is no evidence of cervical spine fracture. There is no subluxation or malalignment. There is disc space narrowing and osteophyte formation most prominent at C6-C7. The facets are in good alignment. IMPRESSION: CT head demonstrates atrophic change and chronic change in deep white matter with prominent vein over the right frontoparietal region most likely secondary to venous angioma as seen on previous studies. There is no acute intracranial finding or calvarial fracture. CT cervical spine shows degenerative findings at C6-C7 with no acute abnormality. Dictated by: Dictated on workstation # [id number]
[2023-01-18] MEDS ORDERED: CYCL10TA25 PO (20:34)
[2023-01-18 20:41] VITALS: BP 176/78
== END 2023-01-18 20:41 | disposition home or self-care (01) ==
LOC: EDUNIT# 18:10 → ER 18:13
DX: M25.552 Pain in left hip (principal); M47.812 Spondylosis without myelopathy or radiculopathy, cervical region; Z87.891 Personal history of nicotine dependence; W01.0XXA Fall on same level from slipping, tripping and stumbling without subsequent striking against object, initial encounter; Y92.000 Kitchen of unspecified non-institutional (private) residence as the place of occurrence of the external cause
CPT/HCPCS: 70450; 72125

== ENCOUNTER → 2023-03-11 | Outpatient (CLI) | payer MEDICARE ==
--- NOTE | 2023-03-11 16:42 | Diagnostic Imaging Report ---
MRI LT LOWER EXT JOINT W/O TECHNIQUE: Multiplanar, multisequence MR imaging of the left knee was performed without contrast. COMPARISON: None available. INDICATION: Left knee pain FINDINGS: MENISCI Medial meniscus: Intact. Lateral meniscus: Mild macerated tearing in the anterior root without extrusion of the body. LIGAMENTS ACL: Intact. PCL: Intact. MCL: Intact. LCL: The lateral collateral ligamentous complex is intact. EXTENSOR MECHANISM The extensor mechanism is intact. CARTILAGE Medial compartment: Mild chondral thinning without sites of full-thickness articular cartilage loss. Lateral compartment: The lateral compartment articular cartilage is preserved without high-grade chondromalacia. Patellofemoral compartment: Diffuse full-thickness articular cartilage loss throughout the lateral facets of the patella and trochlea. BONE There is a small region of abnormal T2 hyperintense signal in the posterior subchondral bone of the medial tibial plateau could represent a nondisplaced fracture. SOFT TISSUE No knee effusion or Charles's cyst. IMPRESSION: 1. There is likely a nondisplaced fracture in the posterior rim of the medial tibial plateau. 2. Degenerative tearing in the anterior horn of the lateral meniscus without displacement of the body into the gutter. 3. 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 Dictated by: Dictated on workstation # [id number]
== END ==
LOC: RAD 14:15
PROVIDERS: ATTEND Family Medicine
DX: S83.282A Other tear of lateral meniscus, current injury, left knee, initial encounter (principal); M17.12 Unilateral primary osteoarthritis, left knee; M23.52 Chronic instability of knee, left knee; R29.898 Other symptoms and signs involving the musculoskeletal system
CPT/HCPCS: 73721